=== PATIENT | female | born 1960 | race Caucasian/White ===

== ENCOUNTER 2022-11-06 20:26 | Emergency (ER) | payer SELFPAY ==
[2022-11-06 20:57] LABS: Urine Blood Trace-intact (Negative); Urine Glucose Negative (Negative); Urine Protein Negative (Negative); Urine Specific Gravity <=1.005 (1.005-1.030); Urine pH 6.5 (5.0-7.0)
--- OUTSIDE RECORDS SUMMARY | 2022-11-06 21:02 | XMS REPORT | Continuity of Care Document ---
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 00 every day release 24 with food hr trazodone 2023-0 No 2{table Q1D take 2 Acc essH 100 mg 1-12 t} tablet by ealth tablet 00:00: oral route 00 every day after meals Blood 2023-0 No check [facility] Pressure 1-12 blood ealth Kit 00:00: pressure 00 once a day gabapentin 2023-0 No 1{capsu TID take 1 Ac cessH 300 mg 1-12 le} capsule by ealth capsule 00:00: oral route 00 3 times every day as needed venlafaxine 2023-0 No 1{capsu Q1D take 1 A ccessH ER 75 mg 1-12 le} capsule by ealth capsule,ext 00:00: oral route ended 00 every day release 24 with food hr trazodone 2023-0 No 2{table Q1D take 2 Acc essH 100 mg 1-12 t} tablet by ealth tablet 00:00: oral route 00 every day after meals Blood 2023-0 No check [facility] Pressure 1-12 blood ealth Kit 00:00: pressure 00 once a day gabapentin 2023-0 No 1{capsu TID take 1 Ac cessH 300 mg 1-12 le} capsule by ealth capsule 00:00: oral route 00 3 times every day as needed venlafaxine 2023-0 No 1{capsu Q1D take 1 A ccessH ER 75 mg 1-12 le} capsule by ealth capsule,ext 00:00: oral route ended 00 every day release 24 with food hr trazodone 2023-0 No 2{table Q1D take 2 Acc essH 100 mg 1-12 t} tablet by ealth tablet 00:00: oral route 00 every day after meals Blood 2023-0 No check [facility] Pressure 1-12 blood ealth Kit 00:00: pressure 00 once a day gabapentin 2023-0 No 1{capsu TID take 1 Ac cessH 300 mg 1-12 le} capsule by ealth capsule 00:00: oral route 00 3 times every day as needed venlafaxine 2023-0 No 1{capsu Q1D take 1 A ccessH ER 75 mg 1-12 le} capsule by ealth capsule,ext 00:00: oral route ended 00 every day release 24 with food hr trazodone 2023-0 No 2{table Q1D take 2 Acc essH 100 mg 1-12 t} tablet by ealth tablet 00:00: oral route 00 every day after meals Blood 2023-0 No check [facility] Pressure 1-12 blood ealth Kit 00:00: pressure 00 once a day gabapentin 2023-0 No 1{capsu TID take 1 Ac cessH 300 mg 1-12 le} capsule by ealth capsule 00:00: oral route 00 3 times every day as needed venlafaxine 2023-0 No 1{capsu Q1D take 1 A ccessH ER 75 mg 1-12 le} capsule by ealth capsule,ext 00:00: oral route ended 00 every day release 24 with food hr trazodone 2023-0 No 2{table Q1D take 2 Acc essH 100 mg 1-12 t} tablet by ealth tablet 00:00: oral route 00 every day after meals Blood 2023-0 No check [facility] Pressure 1-12 blood ealth Kit 00:00: pressure 00 once a day gabapentin 2023-0 No 1{capsu TID take 1 Ac cessH 300 mg 1-12 le} capsule by ealth capsule 00:00: oral route 00 3 times every day as needed venlafaxine 2023-0 No 1{capsu Q1D take 1 A ccessH ER 75 mg 1-12 le} capsule by ealth capsule,ext 00:00: oral route ended 00 every day release 24 with food hr trazodone 2023-0 No 2{table Q1D take 2 Acc essH 100 mg 1-12 t} tablet by ealth tablet 00:00: oral route 00 every day after meals Blood 2023-0 No check [facility] Pressure 1-12 blood ealth Kit 00:00: pressure 00 once a day gabapentin 2023-0 No 1{capsu TID take 1 Ac cessH 300 mg 1-12 le} capsule by ealth capsule 00:00: oral route 00 3 times every day as needed venlafaxine 2023-0 No 1{capsu Q1D take 1 A ccessH ER 75 mg 1-12 le} capsule by ealth capsule,ext 00:00: oral route ended 00 every day release 24 with food hr trazodone 2023-0 No 2{table Q1D take 2 Acc essH 100 mg 1-12 t} tablet by ealth tablet 00:00: oral route 00 every day after meals Blood 2023-0 No check [facility] Pressure 1-12 blood ealth Kit 00:00: pressure 00 once a day gabapentin 2023-0 No 1{capsu TID take 1 Ac cessH 300 mg 1-12 le} capsule by ealth capsule 00:00: oral route 00 3 times every day as needed venlafaxine 2023-0 No 1{capsu Q1D take 1 A ccessH ER 75 mg 1-12 le} capsule by ealth capsule,ext 00:00: oral route ended 00 every day release 24 with food hr trazodone 2023-0 No 2{table Q1D take 2 Acc essH 100 mg 1-12 t} tablet by ealth tablet 00:00: oral route 00 every day after meals Blood 2023-0 No check [facility] Pressure 1-12 blood ealth Kit 00:00: pressure 00 once a day gabapentin 2023-0 No 1{capsu TID take 1 Ac cessH 300 mg 1-12 le} capsule by ealth capsule 00:00: oral route 00 3 times every day as needed venlafaxine 2023-0 No 1{capsu Q1D take 1 A ccessH ER 75 mg 1-12 le} capsule by ealth capsule,ext 00:00: oral route ended 00 every day release 24 with food hr trazodone 2023-0 No 2{table Q1D take 2 Acc essH 100 mg 1-12 t} tablet by ealth tablet 00:00: oral route 00 every day after meals Blood 2023-0 No check [facility] Pressure 1-12 blood ealth Kit 00:00: pressure 00 once a day gabapentin 2023-0 No 1{capsu TID take 1 Ac cessH 300 mg 1-12 le} capsule by ealth capsule 00:00: oral route 00 3 times every day as needed venlafaxine 2023-0 No 1{capsu Q1D take 1 A ccessH ER 75 mg 1-12 le} capsule by ealth capsule,ext 00:00: oral route ended 00 every day release 24 with food hr venlafaxine 2023-0 No 1{capsu Q1D take 1 A ccessH ER 75 mg 1-12 le} capsule by ealth capsule,ext 00:00: oral route ended 00 every day release 24 with food hr trazodone 2023-0 No 2{table Q1D take 2 Acc essH 100 mg 1-12 t} tablet by ealth tablet 00:00: oral route 00 every day after meals trazodone 2023-0 No 2{table Q1D take 2 Acc ess[facility] 100 mg 1-12 t} tablet by ealth tablet 00:00: oral route 00 every day after meals Blood 3-0 No check [facility] Pressure 1-12 blood ealth Kit 00:00: pressure 00 once a day gabapentin 2023-0 No 1{capsu TID take 1 Ac cessH 300 mg 1-12 le} capsule by ealth capsule 00:00: oral route 00 3 times every day as needed Blood 2023-0 No check [facility] Pressure 1-12 blood ealth Kit 00:00: pressure 00 once a day gabapentin 2023-0 No 1{capsu TID take 1 Ac cessH 300 mg 1-12 le} capsule by ealth capsule 00:00: oral route 00 3 times every day as needed venlafaxine 2023-0 No 1{capsu Q1D take 1 A ccessH ER 75 mg 1-12 le} capsule by ealth capsule,ext 00:00: oral route ended 00 every day release 24 with food hr trazodone 2023-0 No 2{table Q1D take 2 Acc essH 100 mg 1-12 t} tablet by ealth tablet 00:00: oral route 00 every day after meals Blood 2023-0 No check [facility] Pressure 1-12 blood ealth Kit 00:00: pressure 00 once a day gabapentin 2023-0 No 1{capsu TID take 1 Ac cessH 300 mg 1-12 le} capsule by ealth capsule 00:00: oral route 00 3 times every day as needed venlafaxine 2023-0 No 1{capsu Q1D take 1 A ccessH ER 75 mg 1-12 le} capsule by ealth capsule,ext 00:00: oral route ended 00 every day release 24 with food hr trazodone 2023-0 No 2{table Q1D take 2 Acc essH 100 mg 1-12 t} tablet by ealth tablet 00:00: oral route 00 every day after meals Blood 2023-0 No check [facility] Pressure 1-12 blood ealth Kit 00:00: pressure 00 once a day gabapentin 2023-0 No 1{capsu TID take 1 Ac cessH 300 mg 1-12 le} capsule by ealth capsule 00:00: oral route 00 3 times every day as needed venlafaxine 2023-0 No 1{capsu Q1D take 1 A ccessH ER 75 mg 1-12 le} capsule by ealth capsule,ext 00:00: oral route ended 00 every day release 24 with food hr trazodone No 2{table Q1D take 2 Acc essH 100 mg 1-12 t} tablet by ealth tablet 00:00: oral route 00 every day after meals Blood 2022-0 No check [facility] Pressure 1-12 blood ealth Kit 00:00: pressure 00 once a day gabapentin No 1{capsu TID take 1 Ac cessH 300 mg 1-12 le} capsule by ealth capsule 00:00: oral route 00 3 times every day as needed gabapentin 2021-08 Yes Closed 300mg Take 1 [facility] (NEURONTIN) 2-29 bimalleolar capsule by [facility] 300 mg 00:00: fracture mouth 3 capsule 00 with times routine daily healing, unspecified laterality, subsequent encounter gabapentin 2021-08 Yes Closed 300mg Take 1 [facility] (NEURONTIN) 2-29 bimalleolar capsule by [facility] 300 mg 00:00: fracture mouth 3 capsule 00 with times routine daily healing, unspecified laterality, subsequent encounter gabapentin 2021-08 Yes Closed 300mg Take 1 [facility] (NEURONTIN) 2-29 bimalleolar capsule by [facility] 300 mg 00:00: fracture mouth 3 capsule 00 with times routine daily healing, unspecified laterality, subsequent encounter gabapentin 2021-08 Yes Closed 300mg Take 1 [facility] (NEURONTIN) 2-29 bimalleolar capsule by Health 300 mg 00:00: fracture mouth 3 capsule 00 with times routine daily healing, unspecified laterality, subsequent encounter gabapentin 2021-08 Yes Closed 300mg Take 1 [facility] (NEURONTIN) 2-29 bimalleolar capsule by [facility] 300 mg 00:00: fracture mouth 3 capsule 00 with times routine daily healing, unspecified laterality, subsequent encounter gabapentin 2021-08 Yes Closed 300mg Take 1 [facility] (NEURONTIN) 2-29 bimalleolar capsule by [facility] 300 mg 00:00: fracture mouth 3 capsule 00 with times routine daily healing, unspecified laterality, subsequent encounter gabapentin 2021-08 Yes Closed 300mg Take 1 [facility] (NEURONTIN) 2-29 bimalleolar capsule by Health 300 mg 00:00: fracture mouth 3 capsule 00 with times routine daily healing, unspecified laterality, subsequent encounter gabapentin 2021-08 Yes Closed 300mg Take 1 [facility] (NEURONTIN) 2-29 bimalleolar capsule by [facility] 300 mg 00:00: fracture mouth 3 capsule 00 with times routine daily healing, unspecified laterality, subsequent encounter gabapentin 2021-08 Yes Closed 300mg Take 1 [facility] (NEURONTIN) 2-29 bimalleolar capsule by [facility] 300 mg 00:00: fracture mouth 3 capsule 00 with times routine daily healing, unspecified laterality, subsequent encounter gabapentin 2021-08 Yes Closed 300mg Take 1 [facility] (NEURONTIN) 2-29 bimalleolar capsule by [facility] 300 mg 00:00: fracture mouth 3 capsule 00 with times routine daily healing, unspecified laterality, subsequent encounter gabapentin 2021-08 Yes Closed 300mg Take 1 [facility] (NEURONTIN) 2-29 bimalleolar capsule by [facility] 300 mg 00:00: fracture mouth 3 capsule 00 with times routine daily healing, unspecified laterality, subsequent encounter gabapentin 2021-08 Yes Closed 300mg Take 1 [facility] (NEURONTIN) 2-29 bimalleolar capsule by [facility] 300 mg 00:00: fracture mouth 3 capsule 00 with times routine daily healing, unspecified laterality, subsequent encounter gabapentin 2021-08 Yes Closed 300mg Take 1 [facility] (NEURONTIN) 2-29 bimalleolar capsule by [facility] 300 mg 00:00: fracture mouth 3 capsule 00 with times routine daily healing, unspecified laterality, subsequent encounter gabapentin 2021-08 Yes Closed 300mg Take 1 [facility] (NEURONTIN) 2-29 bimalleolar capsule by [facility] 300 mg 00:00: fracture mouth 3 capsule 00 with times routine daily healing, unspecified laterality, subsequent encounter gabapentin 2021-08 Yes Closed 300mg Take 1 [facility] (NEURONTIN) 2-29 bimalleolar capsule by [facility] 300 mg 00:00: fracture mouth 3 capsule 00 with times routine daily healing, unspecified laterality, subsequent encounter gabapentin 2021-08 Yes Closed 300mg Take 1 [facility] (NEURONTIN) 2-29 bimalleolar capsule by [facility] 300 mg 00:00: fracture mouth 3 capsule 00 with times routine daily healing, unspecified laterality, subsequent encounter gabapentin 2021-08 Yes Closed 300mg Take 1 [facility] (NEURONTIN) 2-29 bimalleolar capsule by [facility] 300 mg 00:00: fracture mouth 3 capsule 00 with times routine daily healing, unspecified laterality, subsequent encounter gabapentin 2021-08 Yes Closed 300mg Take 1 [facility] (NEURONTIN) 2-29 bimalleolar capsule by [facility] 300 mg 00:00: fracture mouth 3 capsule 00 with times routine daily healing, unspecified laterality, subsequent encounter HYDROcodone 2021-08 Yes Closed 1{tbl} Take 1 [facility] -acetaminop 2-08 bimalleolar tablet by [facility] (Nurigene) 00:00: fracture mouth 5-325 mg 00 with every 6 tablet routine hours as healing, needed for unspecified Pain laterality, subsequent encounter ibuprofen 2021-08 Yes Closed 800mg Take 1 [facility] (MOTRIN) 2-08 bimalleolar tablet by [facility] 800 mg 00:00: fracture mouth tablet 00 with every 8 routine hours as healing, needed for unspecified Pain laterality, subsequent encounter HYDROcodone 2021-08 Yes Closed 1{tbl} Take 1 [facility] -acetaminop 2-08 bimalleolar tablet by [facility] hen [employer]) 00:00: fracture mouth 5-325 mg 00 with every 6 tablet routine hours as healing, needed for unspecified Pain laterality, subsequent encounter ibuprofen 2021-08 Yes Closed 800mg Take 1 [facility] (MOTRIN) 2-08 bimalleolar tablet by [facility] 800 mg 00:00: fracture mouth tablet 00 with every 8 routine hours as healing, needed for unspecified Pain laterality, subsequent encounter HYDROcodone 2021-08 Yes Closed 1{tbl} Take 1 [facility] -acetaminop 2-08 bimalleolar tablet by [facility] hen (Nurigene) 00:00: fracture mouth 5-325 mg 00 with every 6 tablet routine hours as healing, needed for unspecified Pain laterality, subsequent encounter ibuprofen 2021-08 Yes Closed 800mg Take 1 [facility] (MOTRIN) 2-08 bimalleolar tablet by [facility] 800 mg 00:00: fracture mouth tablet 00 with every 8 routine hours as healing, needed for unspecified Pain laterality, subsequent encounter HYDROcodone 2021-08 Yes Closed 1{tbl} Take 1 [facility] -acetaminop 2-08 bimalleolar tablet by [facility] hen (Nurigene) 00:00: fracture mouth 5-325 mg 00 with every 6 tablet routine hours as healing, needed for unspecified Pain laterality, subsequent encounter ibuprofen 2021-08 Yes Closed 800mg Take 1 [facility] (MOTRIN) 2-08 bimalleolar tablet by [facility] 800 mg 00:00: fracture mouth tablet 00 with every 8 routine hours as healing, needed for unspecified Pain laterality, subsequent encounter HYDROcodone 2021-08 Yes Closed 1{tbl} Take 1 [facility] -acetaminop 2-08 bimalleolar tablet by [facility] 00:[facility]: fracture mouth 5-325 mg 00 with every 6 tablet routine hours as healing, needed for unspecified Pain laterality, subsequent encounter ibuprofen 2021-08 Yes Closed 800mg Take 1 [facility] (MOTRIN) 2-08 bimalleolar tablet by [facility] 800 mg 00:00: fracture mouth tablet 00 with every 8 routine hours as healing, needed for unspecified Pain laterality, subsequent encounter HYDROcodone 2021-08 Yes Closed 1{tbl} Take 1 [facility] -acetaminop 2-08 bimalleolar tablet by [facility]) 00:00: fracture mouth 5-325 mg 00 with every 6 tablet routine hours as healing, needed for unspecified Pain laterality, subsequent encounter ibuprofen 2021-08 Yes Closed 800mg Take 1 [facility] (MOTRIN) 2-08 bimalleolar tablet by [facility] 800 mg 00:00: fracture mouth tablet 00 with every 8 routine hours as healing, needed for unspecified Pain laterality, subsequent encounter HYDROcodone 2021-08 Yes Closed 1{tbl} Take 1 [facility] -acetaminop 2-08 [facility]leolar tablet [facility] 00:00: fracture mouth 5-325 mg 00 with every 6 tablet routine hours as healing, needed for unspecified Pain laterality, subsequent encounter ibuprofen 2021-08 Yes Closed 800mg Take 1 [facility] (MOTRIN) 2-08 bimalleolar tablet by [facility] 800 mg 00:00: fracture mouth tablet 00 with every 8 routine hours as healing, needed for unspecified Pain laterality, subsequent encounter HYDROcodone 2021-08 Yes Closed 1{tbl} Take 1 [facility] -acetaminop 2-08 [facility]imalleolar tablet [facility] 00:00: fracture mouth 5-325 mg 00 with every 6 tablet routine hours as healing, needed for unspecified Pain laterality, subsequent encounter ibuprofen 2021-08 Yes Closed 800mg Take 1 [facility] (MOTRIN) 2-08 bimalleolar tablet by [facility] 800 mg 00:00: fracture mouth tablet 00 with every 8 routine hours as healing, needed for unspecified Pain laterality, subsequent encounter HYDROcodone 2022-1 Yes Closed 1{tbl} Take 1 [facility] -acetaminop 2-08 [facility]imalleolar tablet [facility] 00:00: fracture mouth 5-325 mg 00 with every 6 tablet routine hours as healing, needed for unspecified Pain laterality, subsequent encounter ibuprofen 2021-08 Yes Closed 800mg Take 1 [facility] (MOTRIN) 2-08 bimalleolar tablet by [facility] 800 mg 00:00: fracture mouth tablet 00 with every 8 routine hours as healing, needed for unspecified Pain laterality, subsequent encounter HYDROcodone 2021-08 Yes Closed 1{tbl} Take 1 [facility] -acetaminop 2-08 bimalleolar tablet by [facility]) 00:00: fracture mouth 5-325 mg 00 with every 6 tablet routine hours as healing, needed for unspecified Pain laterality, subsequent encounter ibuprofen 2021-08 Yes Closed 800mg Take 1 [facility] (MOTRIN) 2-08 bimalleolar tablet by [facility] 800 mg 00:00: fracture mouth tablet 00 with every 8 routine hours as healing, needed for unspecified Pain laterality, subsequent encounter HYDROcodone 2021-08 Yes Closed 1{tbl} Take 1 [facility] -acetaminop 2-08 [facility]imalleolar tablet [facility] 00:00: fracture mouth 5-325 mg 00 with every 6 tablet routine hours as healing, needed for unspecified Pain laterality, subsequent encounter ibuprofen 2021-08 Yes Closed 800mg Take 1 [facility] (MOTRIN) 2-08 bimalleolar tablet by [facility] 800 mg 00:00: fracture mouth tablet 00 with every 8 routine hours as healing, needed for unspecified Pain laterality, subsequent encounter HYDROcodone 2021-08 Yes Closed 1{tbl} Take 1 [facility] -acetaminop 2-08 bimalleolar tablet by [facility]) 00:00: fracture mouth 5-325 mg 00 with every 6 tablet routine hours as healing, needed for unspecified Pain laterality, subsequent encounter ibuprofen 2021-08 Yes Closed 800mg Take 1 [facility] (MOTRIN) 2-08 bimalleolar tablet by [facility] 800 mg 00:00: fracture mouth tablet 00 with every 8 routine hours as healing, needed for unspecified Pain laterality, subsequent encounter HYDROcodone 2021-08 Yes Closed 1{tbl} Take 1 [facility] -acetaminop 2-08 [facility]imalleolar tablet [facility]) 00:00: fracture mouth 5-325 mg 00 with every 6 tablet routine hours as healing, needed for unspecified Pain laterality, subsequent encounter ibuprofen 2021-08 Yes Closed 800mg Take 1 [facility] (MOTRIN) 2-08 bimalleolar tablet by [facility] 800 mg 00:00: fracture mouth tablet 00 with every 8 routine hours as healing, needed for unspecified Pain laterality, subsequent encounter HYDROcodone 2021-08 Yes Closed 1{tbl} Take 1 [facility] -acetaminop 2-08 bimalleolar tablet by [facility] 00:00: fracture mouth 5-325 mg 00 with every 6 tablet routine hours as healing, needed for unspecified Pain laterality, subsequent encounter ibuprofen 2021-08 Yes Closed 800mg Take 1 [facility] (MOTRIN) 2-08 bimalleolar tablet by [facility] 800 mg 00:00: fracture mouth tablet 00 with every 8 routine hours as healing, needed for unspecified Pain laterality, subsequent encounter HYDROcodone 2021-08 Yes Closed 1{tbl} Take 1 [facility] -acetaminop 2-08 [facility]imalleolar tablet by [facility]) 00:00: fracture mouth 5-325 mg 00 with every 6 tablet routine hours as healing, needed for unspecified Pain laterality, subsequent encounter ibuprofen 2021-08 Yes Closed 800mg Take 1 [facility] (MOTRIN) 2-08 bimalleolar tablet by [facility] 800 mg 00:00: fracture mouth tablet 00 with every 8 routine hours as healing, needed for unspecified Pain laterality, subsequent encounter HYDROcodone 2021-08 Yes Closed 1{tbl} Take 1 [facility] -acetaminop 2-08 bimalleolar tablet by [facility] hen [employer]) 00:00: fracture mouth 5-325 mg 00 with every 6 tablet routine hours as healing, needed for unspecified Pain laterality, subsequent encounter ibuprofen 2021-08 Yes Closed 800mg Take 1 [facility] (MOTRIN) 2-08 bimalleolar tablet by [facility] 800 mg 00:00: fracture mouth tablet 00 with every 8 routine hours as healing, needed for unspecified Pain laterality, subsequent encounter HYDROcodone 2021-08 Yes Closed 1{tbl} Take 1 [facility] -acetaminop 2-08 bimalleolar tablet by [facility] [employer]) 00:00: fracture mouth 5-325 mg 00 with every 6 tablet routine hours as healing, needed for unspecified Pain laterality, subsequent encounter ibuprofen 2021-08 Yes Closed 800mg Take 1 [facility] (MOTRIN) 2-08 bimalleolar tablet by [facility] 800 mg 00:00: fracture mouth tablet 00 with every 8 routine hours as healing, needed for unspecified Pain laterality, subsequent encounter HYDROcodone 2021-08 Yes Closed 1{tbl} Take 1 [facility] -acetaminop 2-08 bimalleolar tablet by [facility] hen ([facility]) 00:00: fracture mouth 5-325 mg 00 with every 6 tablet routine hours as healing, needed for unspecified Pain laterality, subsequent encounter ibuprofen 2021-08 Yes Closed 800mg Take 1 [facility] (MOTRIN) 2-08 bimalleolar tablet by [facility] 800 mg 00:00: fracture mouth tablet 00 with every 8 routine hours as healing, needed for unspecified Pain laterality, subsequent encounter traMADoL 2021-08 Yes Closed 50mg Take 1 [facility] (ULTRAM) 50 1-21 bimalleolar tablet by [facility] mg tablet 00:00: fracture mouth 00 with every 6 routine hours as healing, needed for unspecified Pain laterality, subsequent encounter traMADoL 2021-08 Yes Closed 50mg Take 1 [facility] (ULTRAM) 50 1-21 bimalleolar tablet by [facility] mg tablet 00:00: fracture mouth 00 with every 6 routine hours as healing, needed for unspecified Pain laterality, subsequent encounter traMADoL 2021-08 Yes Closed 50mg Take 1 [facility] (ULTRAM) 50 1-21 bimalleolar tablet by [facility] mg tablet 00:00: fracture mouth 00 with every 6 routine hours as healing, needed for unspecified Pain laterality, subsequent encounter traMADoL 2021-08 Yes Closed 50mg Take 1 [facility] (ULTRAM) 50 1-21 bimalleolar tablet by [facility] mg tablet 00:00: fracture mouth 00 with every 6 routine hours as healing, needed for unspecified Pain laterality, subsequent encounter traMADoL 2021-08 Yes Closed 50mg Take 1 [facility] (ULTRAM) 50 1-21 bimalleolar tablet by [facility] mg tablet 00:00: fracture mouth 00 with every 6 routine hours as healing, needed for unspecified Pain laterality, subsequent encounter traMADoL 2021-08 Yes Closed 50mg Take 1 [facility] (ULTRAM) 50 1-21 bimalleolar tablet by [facility] mg tablet 00:00: fracture mouth 00 with every 6 routine hours as healing, needed for unspecified Pain laterality, subsequent encounter traMADoL 2021-08 Yes Closed 50mg Take 1 [facility] (ULTRAM) 50 1-21 bimalleolar tablet by [facility] mg tablet 00:00: fracture mouth 00 with every 6 routine hours as healing, needed for unspecified Pain laterality, subsequent encounter traMADoL 2021-08 Yes Closed 50mg Take 1 [facility] (ULTRAM) 50 1-21 bimalleolar tablet by [facility] mg tablet 00:00: fracture mouth 00 with every 6 routine hours as healing, needed for unspecified Pain laterality, subsequent encounter traMADoL 2021-08 Yes Closed 50mg Take 1 [facility] (ULTRAM) 50 1-21 bimalleolar tablet by [facility] mg tablet 00:00: fracture mouth 00 with every 6 routine hours as healing, needed for unspecified Pain laterality, subsequent encounter traMADoL 2021-08 Yes Closed 50mg Take 1 [facility] (ULTRAM) 50 1-21 bimalleolar tablet by [facility] mg tablet 00:00: fracture mouth 00 with every 6 routine hours as healing, needed for unspecified Pain laterality, subsequent encounter traMADoL 2021-08 Yes Closed 50mg Take 1 [facility] (ULTRAM) 50 1-21 bimalleolar tablet by [facility] mg tablet 00:00: fracture mouth 00 with every 6 routine hours as healing, needed for unspecified Pain laterality, subsequent encounter traMADoL 2021-08 Yes Closed 50mg Take 1 [facility] (ULTRAM) 50 1-21 bimalleolar tablet by [facility] mg tablet 00:00: fracture mouth 00 with every 6 routine hours as healing, needed for unspecified Pain laterality, subsequent encounter traMADoL 2021-08 Yes Closed 50mg Take 1 [facility] (ULTRAM) 50 1-21 bimalleolar tablet by [facility] mg tablet 00:00: fracture mouth 00 with every 6 routine hours as healing, needed for unspecified Pain laterality, subsequent encounter traMADoL 2021-08 Yes Closed 50mg Take 1 [facility] (ULTRAM) 50 1-21 bimalleolar tablet by [facility] mg tablet 00:00: fracture mouth 00 with every 6 routine hours as healing, needed for unspecified Pain laterality, subsequent encounter traMADoL 2021-08 Yes Closed 50mg Take 1 [facility] (ULTRAM) 50 1-21 bimalleolar tablet by [facility] mg tablet 00:00: fracture mouth 00 with every 6 routine hours as healing, needed for unspecified Pain laterality, subsequent encounter traMADoL 2021-08 Yes Closed 50mg Take 1 [facility] (ULTRAM) 50 1-21 [facility] tablet [facility] tablet 00:00: fracture mouth 00 with every 6 routine hours as healing, needed for unspecified Pain laterality, subsequent encounter traMADoL 2021-08 Yes Closed 50mg Take 1 [facility] (ULTRAM) 50 1-21 [facility] tablet [facility] tablet 00:00: fracture mouth 00 with every 6 routine hours as healing, needed for unspecified Pain laterality, subsequent encounter traMADoL 2021-08 Yes Closed 50mg Take 1 [facility] (ULTRAM) 50 1-21 [facility] tablet [facility] tablet 00:00: fracture mouth 00 with every 6 routine hours as healing, needed for unspecified Pain laterality, subsequent encounter gabapentin 2021-08- No Closed 300mg Take 1 [facility] (NEURONTIN) 09-11 [facility] capsule [facility] 300 mg 00:00: 23:59 fracture of mouth 3 capsule 00 :00 left ankle, times initial daily for encounter 30 days gabapentin 2021-08- No Closed 300mg Take 1 [facility] (NEURONTIN) 09-11 [facility] capsule [facility] 300 mg 00:00: 23:59 fracture of mouth 3 capsule 00 :00 left ankle, times initial daily for encounter 30 days gabapentin 2021-08- No Closed 300mg Take 1 [facility] (NEURONTIN) 09-11 [facility] capsule [facility] 300 mg 00:00: 23:59 fracture of mouth 3 capsule 00 :00 left ankle, times initial daily for encounter 30 days gabapentin 2021-08- No Closed 300mg Take 1 [facility] (NEURONTIN) 09-11 [facility] capsule [facility] 300 mg 00:00: 23:59 fracture of mouth 3 capsule 00 :00 left ankle, times initial daily for encounter 30 days gabapentin 2021-08- No Closed 300mg Take 1 [facility] (NEURONTIN) 09-11 [facility] capsule [facility] 300 mg 00:00: 23:59 fracture of mouth 3 capsule 00 :00 left ankle, times initial daily for encounter 30 days gabapentin 2021-08- No Closed 300mg Take 1 [facility] (NEURONTIN) 1-21 12-21 [facility] capsule [facility] 300 mg 00:00: 23:59 fracture of mouth 3 capsule 00 :00 left ankle, times initial daily for encounter 30 days gabapentin 2021-08- No Closed 300mg Take 1 [facility] (NEURONTIN) 09-11 [facility] capsule [facility] 300 mg 00:00: 23:59 fracture of mouth 3 capsule 00 :00 left ankle, times initial daily for encounter 30 days gabapentin 2021-08- No Closed 300mg Take 1 [facility]is (NEURONTIN) 09-11 bimalleolar capsule by [facility] 300 mg 00:00: 23:59 fracture of mouth 3 capsule 00 :00 left ankle, times initial daily for encounter 30 days gabapentin 2021-08- No Closed 300mg Take 1 [facility] (NEURONTIN) 09-11 bimalleolar capsule by [facility] 300 mg 00:00: 23:59 fracture of mouth 3 capsule 00 :00 left ankle, times initial daily for encounter 30 days gabapentin 2021-08- No Closed 300mg Take 1 [facility]is (NEURONTIN) 09-11 bimalleolar capsule by [facility] 300 mg 00:00: 23:59 fracture of mouth 3 capsule 00 :00 left ankle, times initial daily for encounter 30 days gabapentin 2021-08- No Closed 300mg Take 1 [facility]is (NEURONTIN) 09-11 bimalleolar capsule by [facility] 300 mg 00:00: 23:59 fracture of mouth 3 capsule 00 :00 left ankle, times initial daily for encounter 30 days gabapentin 2021-08- No Closed 300mg Take 1 [facility] (NEURONTIN) 09-11 bimalleolar capsule by [facility] 300 mg 00:00: 23:59 fracture of mouth 3 capsule 00 :00 left ankle, times initial daily for encounter 30 days gabapentin 2021-08- No Closed 300mg Take 1 [facility] (NEURONTIN) 09-11 bimalleolar capsule by [facility] 300 mg 00:00: 23:59 fracture of mouth 3 capsule 00 :00 left ankle, times initial daily for encounter 30 days gabapentin 2021-08- No Closed 300mg Take 1 [facility] (NEURONTIN) 09-11 [facility] capsule [facility] 300 mg 00:00: 23:59 fracture of mouth 3 capsule 00 :00 left ankle, times initial daily for encounter 30 days gabapentin 2021-08- No Closed 300mg Take 1 [facility] (NEURONTIN) 09-11 [facility] capsule [facility] 300 mg 00:00: 23:59 fracture of mouth 3 capsule 00 :00 left ankle, times initial daily for encounter 30 days gabapentin 2021-08- No Closed 300mg Take 1 [facility] (NEURONTIN) 09-11 [facility]olar capsule [facility] 300 mg 00:00: 23:59 fracture of mouth 3 capsule 00 :00 left ankle, times initial daily for encounter 30 days gabapentin 2021-08- No Closed 300mg Take 1 [facility] (NEURONTIN) 09-11 [facility]olar capsule [facility] 300 mg 00:00: 23:59 fracture of mouth 3 capsule 00 :00 left ankle, times initial daily for encounter 30 days gabapentin 2021-08- No Closed 300mg Take 1 [facility] (NEURONTIN) 09-11 [facility] capsule [facility] 300 mg 00:00: 23:59 fracture of mouth 3 capsule 00 :00 left ankle, times initial daily for encounter 30 days traMADoL 2021-08- No Closed 50mg Take 1 [facility] (ULTRAM) 50 08-31 [facility] tablet [facility] tablet 00:00: 00:00 fracture mouth 00 :00 with every 6 routine hours as healing, needed for unspecified Pain laterality, subsequent encounter traMADoL 2021-08- No Closed 50mg Take 1 [facility] (ULTRAM) 50 08-31 [facility] tablet [facility] tablet 00:00: 00:00 fracture mouth 00 :00 with every 6 routine hours as healing, needed for unspecified Pain laterality, subsequent encounter traMADoL 2021-08- No Closed 50mg Take 1 [facility] (ULTRAM) 50 08-31 [facility] tablet [facility] tablet 00:00: 00:00 fracture mouth 00 :00 with every 6 routine hours as healing, needed for unspecified Pain laterality, subsequent encounter traMADoL 2021-08- No Closed 50mg Take 1 [facility] (ULTRAM) 50 08-31 [facility] tablet [facility] tablet 00:00: 00:00 fracture mouth 00 :00 with every 6 routine hours as healing, needed for unspecified Pain laterality, subsequent encounter traMADoL 2021-08- No Closed 50mg Take 1 [facility] (ULTRAM) 50 08-31 [facility] tablet [facility] tablet 00:00: 00:00 fracture mouth 00 :00 with every 6 routine hours as healing, needed for unspecified Pain laterality, subsequent encounter traMADoL 2021-08- No Closed 50mg Take 1 [facility] (ULTRAM) 50 08-31 [facility] tablet [facility] tablet 00:00: 00:00 fracture mouth 00 :00 with every 6 routine hours as healing, needed for unspecified Pain laterality, subsequent encounter traMADoL 2021-08- No Closed 50mg Take 1 [facility] (ULTRAM) 50 08-31 [facility] tablet [facility] tablet 00:00: 00:00 fracture mouth 00 :00 with every 6 routine hours as healing, needed for unspecified Pain laterality, subsequent encounter traMADoL 2021-08- No Closed 50mg Take 1 [facility] (ULTRAM) 50 08-31 [facility] tablet [facility] tablet 00:00: 00:00 fracture mouth 00 :00 with every 6 routine hours as healing, needed for unspecified Pain laterality, subsequent encounter traMADoL 2021-08- No Closed 50mg Take 1 [facility] (ULTRAM) 50 08-31 [facility] tablet [facility] tablet 00:00: 00:00 fracture mouth 00 :00 with every 6 routine hours as healing, needed for unspecified Pain laterality, subsequent encounter traMADoL 2021-08- No Closed 50mg Take 1 [facility] (ULTRAM) 50 08-31 [facility] tablet [facility] tablet 00:00: 00:00 fracture mouth 00 :00 with every 6 routine hours as healing, needed for unspecified Pain laterality, subsequent encounter traMADoL 2021-08- No Closed 50mg Take 1 [facility] (ULTRAM) 50 08-31- [facility]imalleolar tablet [facility] tablet 00:00: 00:00 fracture mouth 00 :00 with every 6 routine hours as healing, needed for unspecified Pain laterality, subsequent encounter traMADoL 2021-08- No Closed 50mg Take 1 [facility] (ULTRAM) 50 08-31 [facility] tablet [facility] tablet 00:00: 00:00 fracture mouth 00 :00 with every 6 routine hours as healing, needed for unspecified Pain laterality, subsequent encounter traMADoL 2021-08- No Closed 50mg Take 1 [facility] (ULTRAM) 50 08-31 [facility] tablet [facility] tablet 00:00: 00:00 fracture mouth 00 :00 with every 6 routine hours as healing, needed for unspecified Pain laterality, subsequent encounter traMADoL 2021-08- No Closed 50mg Take 1 [facility] (ULTRAM) 50 08-31 [facility]imalleolar tablet [facility] tablet 00:00: 00:00 fracture mouth 00 :00 with every 6 routine hours as healing, needed for unspecified Pain laterality, subsequent encounter traMADoL 2021-08- No Closed 50mg Take 1 [facility] (ULTRAM) 50 08-31 [facility] tablet [facility] tablet 00:00: 00:00 fracture mouth 00 :00 with every 6 routine hours as healing, needed for unspecified Pain laterality, subsequent encounter traMADoL 2021-08- No Closed 50mg Take 1 [facility] (ULTRAM) 50 08-31 [facility] tablet [facility] tablet 00:00: 00:00 fracture mouth 00 :00 with every 6 routine hours as healing, needed for unspecified Pain laterality, subsequent encounter traMADoL 2021-08- No Closed 50mg Take 1 [facility] (ULTRAM) 50 08-31 [facility] tablet [facility] tablet 00:00: 00:00 fracture mouth 00 :00 with every 6 routine hours as healing, needed for unspecified Pain laterality, subsequent encounter traMADoL 2021-08- No Closed 50mg Take 1 [facility] (ULTRAM) 50 08-31 [facility] tablet [facility] tablet 00:00: 00:00 fracture mouth 00 :00 with every 6 routine hours as healing, needed for unspecified Pain laterality, subsequent encounter traMADoL 2021-08- No Closed 50mg Take 1 [facility] (ULTRAM) 50 08-24 [facility] tablet [facility] tablet 00:00: 00:00 fracture mouth 00 :00 with every 6 routine hours as healing, needed for unspecified Pain laterality, subsequent encounter traMADoL 2021-08- No Closed 50mg Take 1 [facility] (ULTRAM) 50 08-24 11-10 [facility] tablet [facility] tablet 00:00: 00:00 fracture mouth 00 :00 with every 6 routine hours as healing, needed for unspecified Pain laterality, subsequent encounter traMADoL 2021-08- No Closed 50mg Take 1 [facility] (ULTRAM) 50 08-24 11-10 [facility] tablet [facility] tablet 00:00: 00:00 fracture mouth 00 :00 with every 6 routine hours as healing, needed for unspecified Pain laterality, subsequent encounter traMADoL 2021-08- No Closed 50mg Take 1 [facility] (ULTRAM) 50 08-24 11-10 [facility] tablet [facility] tablet 00:00: 00:00 fracture mouth 00 :00 with every 6 routine hours as healing, needed for unspecified Pain laterality, subsequent encounter traMADoL 2021-08- No Closed 50mg Take 1 [facility] (ULTRAM) 50 08-24 11-10 [facility] tablet [facility] tablet 00:00: 00:00 fracture mouth 00 :00 with every 6 routine hours as healing, needed for unspecified Pain laterality, subsequent encounter traMADoL 2021-08- No Closed 50mg Take 1 [facility] (ULTRAM) 50 08-24 11-10 [facility] tablet [facility] tablet 00:00: 00:00 fracture mouth 00 :00 with every 6 routine hours as healing, needed for unspecified Pain laterality, subsequent encounter traMADoL 2021-08- No Closed 50mg Take 1 [facility] (ULTRAM) 50 08-24 11-10 [facility] tablet [facility] tablet 00:00: 00:00 fracture mouth 00 :00 with every 6 routine hours as healing, needed for unspecified Pain laterality, subsequent encounter traMADoL 2021-08- No Closed 50mg Take 1 [facility] (ULTRAM) 50 08-24 11-10 [facility]imalleolar tablet [facility] tablet 00:00: 00:00 fracture mouth 00 :00 with every 6 routine hours as healing, needed for unspecified Pain laterality, subsequent encounter traMADoL 2021-08- No Closed 50mg Take 1 [facility] (ULTRAM) 50 08-24 11-10 [facility]imalleolar tablet [facility] tablet 00:00: 00:00 fracture mouth 00 :00 with every 6 routine hours as healing, needed for unspecified Pain laterality, subsequent encounter traMADoL 2021-08- No Closed 50mg Take 1 [facility] (ULTRAM) 50 08-24 11-10 [facility] tablet [facility] tablet 00:00: 00:00 fracture mouth 00 :00 with every 6 routine hours as healing, needed for unspecified Pain laterality, subsequent encounter traMADoL 2021-08- No Closed 50mg Take 1 [facility] (ULTRAM) 50 08-24 11-10 [facility]imal[facility]olar tablet [facility] tablet 00:00: 00:00 fracture mouth 00 :00 with every 6 routine hours as healing, needed for unspecified Pain laterality, subsequent encounter traMADoL 2021-08- No Closed 50mg Take 1 [facility] (ULTRAM) 50 08-24 11-10 [facility]imalleolar tablet [facility] mg tablet 00:00: 00:00 fracture mouth 00 :00 with every 6 routine hours as healing, needed for unspecified Pain laterality, subsequent encounter traMADoL 2021-08- No Closed 50mg Take 1 [facility] (ULTRAM) 50 08-24 11-10 [facility]imal[facility]olar tablet [facility] mg tablet 00:00: 00:00 fracture mouth 00 :00 with every 6 routine hours as healing, needed for unspecified Pain laterality, subsequent encounter traMADoL 2021-08- No Closed 50mg Take 1 [facility] (ULTRAM) 50 08-24 11-10 [facility]imal[facility]olar tablet [facility] tablet 00:00: 00:00 fracture mouth 00 :00 with every 6 routine hours as healing, needed for unspecified Pain laterality, subsequent encounter traMADoL 2021-08- No Closed 50mg Take 1 [facility] (ULTRAM) 50 08-24 11-10 [facility]imalleolar tablet by [facility] mg tablet 00:00: 00:00 fracture mouth 00 :00 with every 6 routine hours as healing, needed for unspecified Pain laterality, subsequent encounter traMADoL 2021-08- No Closed 50mg Take 1 [facility] (ULTRAM) 50 08-24 11-10 [facility]imalleolar tablet [facility] mg tablet 00:00: 00:00 fracture mouth 00 :00 with every 6 routine hours as healing, needed for unspecified Pain laterality, subsequent encounter traMADoL 2021-08- No Closed 50mg Take 1 [facility] (ULTRAM) 50 08-24 11-10 [facility]imalleolar tablet [facility] mg tablet 00:00: 00:00 fracture mouth 00 :00 with every 6 routine hours as healing, needed for unspecified Pain laterality, subsequent encounter traMADoL 2021-08- No Closed 50mg Take 1 [facility] (ULTRAM) 50 08-24-10 [facility]imal[facility]olar tablet [facility] tablet 00:00: 00:00 fracture mouth 00 :00 with every 6 routine hours as healing, needed for unspecified Pain laterality, subsequent encounter gabapentin 2021-08- No Closed 300mg Take 1 H arris (NEURONTIN) 0-18 07-21 [facility] capsule [facility] 300 mg 00:00: 00:00 fracture of mouth 3 capsule 00 :00 left ankle, times initial daily for encounter 30 days gabapentin 2021-08- No Closed 300mg Take 1 H arris (NEURONTIN) 0-18 07-21 [facility] capsule [facility] 300 mg 00:00: 00:00 fracture of mouth 3 capsule 00 :00 left ankle, times initial daily for encounter 30 days gabapentin 2021-08- No Closed 300mg Take 1 H arris (NEURONTIN) 0-27 -21 [facility] capsule [facility] 300 mg 00:00: 00:00 fracture of mouth 3 capsule 00 :00 left ankle, times initial daily for encounter 30 days gabapentin 2021-08- No Closed 300mg Take 1 H arris (NEURONTIN) 0-27 -21 [facility] capsule [facility] 300 mg 00:00: 00:00 fracture of mouth 3 capsule 00 :00 left ankle, times initial daily for encounter 30 days gabapentin 2021-08- No Closed 300mg Take 1 H arris (NEURONTIN) 0-27 -21 [facility] capsule [facility] 300 mg 00:00: 00:00 fracture of mouth 3 capsule 00 :00 left ankle, times initial daily for encounter 30 days gabapentin 2021-08- No Closed 300mg Take 1 H arris (NEURONTIN) 0-27 -21 [facility]olar capsule [facility] 300 mg 00:00: 00:00 fracture of mouth 3 capsule 00 :00 left ankle, times initial daily for encounter 30 days gabapentin 2021-08- No Closed 300mg Take 1 H arris (NEURONTIN) 0 11-21 bimal[facility]olar capsule [facility] 300 mg 00:00: 00:00 fracture of mouth 3 capsule 00 :00 left ankle, times initial daily for encounter 30 days gabapentin 2021-08- No Closed 300mg Take 1 H arris (NEURONTIN) 0 11-21 [facility]imal[facility]olar capsule [facility] 300 mg 00:00: 00:00 fracture of mouth 3 capsule 00 :00 left ankle, times initial daily for encounter 30 days gabapentin 2021-08- No Closed 300mg Take 1 H arris (NEURONTIN) 0- bimalleolar capsule [facility] 300 mg 00:00: 00:00 fracture of mouth 3 capsule 00 :00 left ankle, times initial daily for encounter 30 days gabapentin 2021-08- No Closed 300mg Take 1 H arris (NEURONTIN) 0- [facility]imalleolar capsule [facility] 300 mg 00:00: 00:00 fracture of mouth 3 capsule 00 :00 left ankle, times initial daily for encounter 30 days gabapentin 2021-08- No Closed 300mg Take 1 H arris (NEURONTIN) 0- bimalleolar capsule [facility] 300 mg 00:00: 00:00 fracture of mouth 3 capsule 00 :00 left ankle, times initial daily for encounter 30 days gabapentin 2021-08- No Closed 300mg Take 1 H arris (NEURONTIN) 0- [facility]imalleolar capsule [facility] 300 mg 00:00: 00:00 fracture of mouth 3 capsule 00 :00 left ankle, times initial daily for encounter 30 days gabapentin 2021-08- No Closed 300mg Take 1 H arris (NEURONTIN) 0-21 bimalleolar capsule by [facility] 300 mg 00:00: 00:00 fracture of mouth 3 capsule 00 :00 left ankle, times initial daily for encounter 30 days gabapentin 2021-08- No Closed 300mg Take 1 H arris (NEURONTIN) 0-21 bimalleolar capsule [facility] 300 mg 00:00: 00:00 fracture of mouth 3 capsule 00 :00 left ankle, times initial daily for encounter 30 days gabapentin 2021-08 No Closed 300mg Take 1 H arris (NEURONTIN) 0-27 11-21 bimalleolar capsule by [facility] 300 mg 00:00: 00:00 fracture of mouth 3 capsule 00 :00 left ankle, times initial daily for encounter 30 days gabapentin 2021-08 No Closed 300mg Take 1 H arris (NEURONTIN) 0-27 11-21 bimalleolar capsule by [facility] 300 mg 00:00: 00:00 fracture of mouth 3 capsule 00 :00 left ankle, times initial daily for encounter 30 days gabapentin 2021-08 No Closed 300mg Take 1 H arris (NEURONTIN) 0-27 11-21 bimalleolar capsule by [facility] 300 mg 00:00: 00:00 fracture of mouth 3 capsule 00 :00 left ankle, times initial daily for encounter 30 days gabapentin 2021-08 No Closed 300mg Take 1 H [facility]is (NEURONTIN) 0-27 11-21 bimalleolar capsule by [facility] 300 mg 00:00: 00:00 fracture of mouth 3 capsule 00 :00 left ankle, times initial daily for encounter 30 days HYDROcodone 2021-08- No Closed 1{tbl} Take 1 [facility] -acetaminop 0-27 11-10 bimalleolar tablet by [facility]) 00:00: 00:00 fracture mouth 5-325 mg 00 :00 with every 6 tablet routine hours as healing, needed for unspecified Pain laterality, subsequent encounter HYDROcodone 2021-08- No Closed 1{tbl} Take 1 [facility] -acetaminop 0-27 11-10 bimalleolar tablet by [facility]) 00:00: 00:00 fracture mouth 5-325 mg 00 :00 with every 6 tablet routine hours as healing, needed for unspecified Pain laterality, subsequent encounter HYDROcodone 2021-08- No Closed 1{tbl} Take 1 [facility] -acetaminop 0-27 11-10 bimalleolar tablet by [facility]) 00:00: 00:00 fracture mouth 5-325 mg 00 :00 with every 6 tablet routine hours as healing, needed unspecified for Pain laterality, subsequent encounter HYDROcodone 2021-08- No Closed 1{tbl} Take 1 [facility] -acetaminop 0-27 11-10 bimalleolar tablet by [facility] (PLANO) 00:00: 00:00 fracture mouth 5-325 mg 00 :00 with every 6 tablet routine hours as healing, needed for unspecified Pain laterality, subsequent encounter HYDROcodone 2021-08- No Closed 1{tbl} Take 1 [facility] -acetaminop 0-27 11-10 bimalleolar tablet by [facility] (PLANO) 00:00: 00:00 fracture mouth 5-325 mg 00 :00 with every 6 tablet routine hours as healing, needed for unspecified Pain laterality, subsequent encounter HYDROcodone 2021-08- No Closed 1{tbl} Take 1 [facility] -acetaminop 0-27 11-10 bimalleolar tablet by [facility] (PLANO) 00:00: 00:00 fracture mouth 5-325 mg 00 :00 with every 6 tablet routine hours as healing, needed for unspecified Pain laterality, subsequent encounter HYDROcodone 2021-08- No Closed 1{tbl} Take 1 [facility] -acetaminop 0-27 11-10 bimalleolar tablet by [facility] (PLANO) 00:00: 00:00 fracture mouth 5-325 mg 00 :00 with every 6 tablet routine hours as healing, needed for unspecified Pain laterality, subsequent encounter HYDROcodone 2021-08- No Closed 1{tbl} Take 1 [facility] -acetaminop 0-27 11-10 bimalleolar tablet by [facility] (PLANO) 00:00: 00:00 fracture mouth 5-325 mg 00 :00 with every 6 tablet routine hours as healing, needed for unspecified Pain laterality, subsequent encounter HYDROcodone 2021-08- No Closed 1{tbl} Take 1 [facility] -acetaminop 0-27 11-10 bimalleolar tablet by [facility] (PLANO) 00:00: 00:00 fracture mouth 5-325 mg 00 :00 with every 6 tablet routine hours as healing, needed for unspecified Pain laterality, subsequent encounter HYDROcodone 2021-08- No Closed 1{tbl} Take 1 [facility] -acetaminop 0-27 11-10 bimalleolar tablet by [facility] (PLANO) 00:00: 00:00 fracture mouth 5-325 mg 00 :00 with every 6 tablet routine hours as healing, needed for unspecified Pain laterality, subsequent encounter HYDROcodone 2021-08- No Closed 1{tbl} Take 1 [facility] -acetaminop 0-27 11-10 bimalleolar tablet by [facility] (PLANO) 00:00: 00:00 fracture mouth 5-325 mg 00 :00 with every 6 tablet routine hours as healing, needed for unspecified Pain laterality, subsequent encounter HYDROcodone 2021-08- No Closed 1{tbl} Take 1 [facility] -acetaminop 0-27 11-10 bimalleolar tablet by [facility] (PLANO) 00:00: 00:00 fracture mouth 5-325 mg 00 :00 with every 6 tablet routine hours as healing, needed for unspecified Pain laterality, subsequent encounter HYDROcodone 2021-08- No Closed 1{tbl} Take 1 [facility] -acetaminop 0-27 11-10 bimalleolar tablet by [facility] (PLANO) 00:00: 00:00 fracture mouth 5-325 mg 00 :00 with every 6 tablet routine hours as healing, needed for unspecified Pain laterality, subsequent encounter HYDROcodone 2021-08- No Closed 1{tbl} Take 1 [facility] -acetaminop 0-27 11-10 bimalleolar tablet by [facility] (PLANO) 00:00: 00:00 fracture mouth 5-325 mg 00 :00 with every 6 tablet routine hours as healing, needed for unspecified Pain laterality, subsequent encounter HYDROcodone 2021-08- No Closed 1{tbl} Take 1 [facility] -acetaminop 0-27 11-10 bimalleolar tablet by [facility] (PLANO) 00:00: 00:00 fracture mouth 5-325 mg 00 :00 with every 6 tablet routine hours as healing, needed for unspecified Pain laterality, subsequent encounter HYDROcodone 2021-08- No Closed 1{tbl} Take 1 [facility] -acetaminop 0-27 11-10 bimalleolar tablet by [facility] (PLANO) 00:00: 00:00 fracture mouth 5-325 mg 00 :00 with every 6 tablet routine hours as healing, needed for unspecified Pain laterality, subsequent encounter HYDROcodone 2021-08- No Closed 1{tbl} Take 1 [facility] -acetaminop 0-27 11-10 bimalleolar tablet by [facility] (PLANO) 00:00: 00:00 fracture mouth 5-325 mg 00 :00 with every 6 tablet routine hours as healing, needed for unspecified Pain laterality, subsequent encounter HYDROcodone 2021-08- No Closed 1{tbl} Take 1 [facility] -acetaminop 0-27 11-10 bimalleolar tablet by [facility] (PLANO) 00:00: 00:00 fracture mouth 5-325 mg 00 :00 with every 6 tablet routine hours as healing, needed for unspecified Pain laterality, subsequent encounter HYDROcodone 2021-08- No Closed 1{tbl} Take 1 [facility] -acetaminop 0-20 10-27 bimalleolar tablet by [facility] (PLANO) 00:00: 00:00 fracture mouth 5-325 mg 00 :00 with every 6 tablet routine hours as healing, needed for unspecified Pain laterality, subsequent encounter HYDROcodone 2021-08- No Closed 1{tbl} Take 1 [facility] -acetaminop 0-20 10-27 bimalleolar tablet by [facility] (PLANO) 00:00: 00:00 fracture mouth 5-325 mg 00 :00 with every 6 tablet routine hours as healing, needed for unspecified Pain laterality, subsequent encounter HYDROcodone 2021-08- No Closed 1{tbl} Take 1 [facility] -acetaminop 0-20 10-27 bimalleolar tablet by [facility] (PLANO) 00:00: 00:00 fracture mouth 5-325 mg 00 :00 with every 6 tablet routine hours as healing, needed for unspecified Pain laterality, subsequent encounter HYDROcodone 2021-08- No Closed 1{tbl} Take 1 [facility] -acetaminop 0-20 10-27 bimalleolar tablet by [facility] (PLANO) 00:00: 00:00 fracture mouth 5-325 mg 00 :00 with every 6 tablet routine hours as healing, needed for unspecified Pain laterality, subsequent encounter HYDROcodone 2021-08- No Closed 1{tbl} Take 1 [facility] -acetaminop 0-20 10-27 [facility]imalleolar tablet by [facility] (PLANO) 00:00: 00:00 fracture mouth 5-325 mg 00 :00 with every 6 tablet routine hours as healing, needed for unspecified Pain laterality, subsequent encounter HYDROcodone 2021-08- No Closed 1{tbl} Take 1 [facility] -acetaminop 0-20 10-27 bimalleolar tablet by [facility] (PLANO) 00:00: 00:00 fracture mouth 5-325 mg 00 :00 with every 6 tablet routine hours as healing, needed for unspecified Pain laterality, subsequent encounter HYDROcodone 2021-08- No Closed 1{tbl} Take 1 [facility] -acetaminop 0-20 10-27 bimalleolar tablet by [facility] (PLANO) 00:00: 00:00 fracture mouth 5-325 mg 00 :00 with every 6 tablet routine hours as healing, needed for unspecified Pain laterality, subsequent encounter HYDROcodone 2021-08- No Closed 1{tbl} Take 1 [facility] -acetaminop 0-20 10-27 bimalleolar tablet by [facility] (PLANO) 00:00: 00:00 fracture mouth 5-325 mg 00 :00 with every 6 tablet routine hours as healing, needed for unspecified Pain laterality, subsequent encounter HYDROcodone 2021-08- No Closed 1{tbl} Take 1 [facility] -acetaminop 0-20 10-27 bimalleolar tablet by [facility] (PLANO) 00:00: 00:00 fracture mouth 5-325 mg 00 :00 with every 6 tablet routine hours as healing, needed for unspecified Pain laterality, subsequent encounter HYDROcodone 2021-08- No Closed 1{tbl} Take 1 [facility] -acetaminop 0-20 10-27 [facility]imalleolar tablet by [facility] ([facility]) 00:00: 00:00 fracture mouth 5-325 mg 00 :00 with every 6 tablet routine hours as healing, needed for unspecified Pain laterality, subsequent encounter HYDROcodone 2021-08- No Closed 1{tbl} Take 1 [facility] -acetaminop 0-20 10-27 bimalleolar tablet by [facility] ([facility]) 00:00: 00:00 fracture mouth 5-325 mg 00 :00 with every 6 tablet routine hours as healing, needed for unspecified Pain laterality, subsequent encounter HYDROcodone 2021-08- No Closed 1{tbl} Take 1 [facility] -acetaminop 0-20 10-27 bimalleolar tablet by [facility] ([facility]) 00:00: 00:00 fracture mouth 5-325 mg 00 :00 with every 6 tablet routine hours as healing, needed for unspecified Pain laterality, subsequent encounter HYDROcodone 2021-08- No Closed 1{tbl} Take 1 [facility] -acetaminop 0-20 10-27 bimalleolar tablet by [facility] ([facility]) 00:00: 00:00 fracture mouth 5-325 mg 00 :00 with every 6 tablet routine hours as healing, needed for unspecified Pain laterality, subsequent encounter HYDROcodone 2021-08- No Closed 1{tbl} Take 1 [facility] -acetaminop 0-20 10-27 bimalleolar tablet by [facility] ([facility]) 00:00: 00:00 fracture mouth 5-325 mg 00 :00 with every 6 tablet routine hours as healing, needed for unspecified Pain laterality, subsequent encounter HYDROcodone 2021-08- No Closed 1{tbl} Take 1 [facility] -acetaminop 0-20 10-27 bimalleolar tablet by [facility] ([facility]) 00:00: 00:00 fracture mouth 5-325 mg 00 :00 with every 6 tablet routine hours as healing, needed for unspecified Pain laterality, subsequent encounter HYDROcodone 2021-08- No Closed 1{tbl} Take 1 [facility] -acetaminop 0-20 10-27 bimalleolar tablet by [facility] ([facility]) 00:00: 00:00 fracture mouth 5-325 mg 00 :00 with every 6 tablet routine hours as healing, needed for unspecified Pain laterality, subsequent encounter HYDROcodone 2021-08- No Closed 1{tbl} Take 1 [facility] -acetaminop 0-20 10-27 bimalleolar tablet by [facility] ([facility]) 00:00: 00:00 fracture mouth 5-325 mg 00 :00 with every 6 tablet routine hours as healing, needed for unspecified Pain laterality, subsequent encounter HYDROcodone 2021-08- No Closed 1{tbl} Take 1 [facility] -acetaminop 0-20 10-27 bimalleolar tablet by [facility] ([facility]) 00:00: 00:00 fracture mouth 5-325 mg 00 :00 with every 6 tablet routine hours as healing, needed for unspecified Pain laterality, subsequent encounter ibuprofen 2021-08 Yes Closed 800mg Take 1 [facility] (MOTRIN) 0-14 bimalleolar tablet by [facility] 800 mg 00:00: fracture of mouth tablet 00 left ankle every 8 with hours as routine needed for healing, Pain subsequent encounter ibuprofen 2021-08 Yes Closed 800mg Take 1 [facility] (MOTRIN) 0-14 bimalleolar tablet by [facility] 800 mg 00:00: fracture of mouth tablet 00 left ankle every 8 with hours as routine needed for healing, Pain subsequent encounter ibuprofen 2021-08 Yes Closed 800mg Take 1 [facility] (MOTRIN) 0-14 bimalleolar tablet by [facility] 800 mg 00:00: fracture of mouth tablet 00 left ankle every 8 with hours as routine needed for healing, Pain subsequent encounter ibuprofen 2021-08 Yes Closed 800mg Take 1 [facility] (MOTRIN) 0-14 bimalleolar tablet by [facility] 800 mg 00:00: fracture of mouth tablet 00 left ankle every 8 with hours as routine needed for healing, Pain subsequent encounter ibuprofen 2021-08 Yes Closed 800mg Take 1 [facility] (MOTRIN) 0-14 bimalleolar tablet by [facility] 800 mg 00:00: fracture of mouth tablet 00 left ankle every 8 with hours as routine needed for healing, Pain subsequent encounter ibuprofen 2021-08 Yes Closed 800mg Take 1 [facility] (MOTRIN) 0-14 bimalleolar tablet by [facility] 800 mg 00:00: fracture of mouth tablet 00 left ankle every 8 with hours as routine needed for healing, Pain subsequent encounter ibuprofen 2021-08 Yes Closed 800mg Take 1 [facility] (MOTRIN) 0-14 bimalleolar tablet by [facility] 800 mg 00:00: fracture of mouth tablet 00 left ankle every 8 with hours as routine needed for healing, Pain subsequent encounter ibuprofen 2021-08 Yes Closed 800mg Take 1 [facility] (MOTRIN) 0-14 bimalleolar tablet by [facility] 800 mg 00:00: fracture of mouth tablet 00 left ankle every 8 with hours as routine needed for healing, Pain subsequent encounter ibuprofen 2021-08 Yes Closed 800mg Take 1 [facility] (MOTRIN) 0-14 bimalleolar tablet by [facility] 800 mg 00:00: fracture of mouth tablet 00 left ankle every 8 with hours as routine needed for healing, Pain subsequent encounter ibuprofen 2021-08 Yes Closed 800mg Take 1 [facility] (MOTRIN) 0-14 bimalleolar tablet by [facility] 800 mg 00:00: fracture of mouth tablet 00 left ankle every 8 with hours as routine needed for healing, Pain subsequent encounter ibuprofen 2021-08 Yes Closed 800mg Take 1 [facility] (MOTRIN) 0-14 bimalleolar tablet by [facility] 800 mg 00:00: fracture of mouth tablet 00 left ankle every 8 with hours as routine needed for healing, Pain subsequent encounter ibuprofen 2021-08 Yes Closed 800mg Take 1 [facility] (MOTRIN) 0-14 bimalleolar tablet by [facility] 800 mg 00:00: fracture of mouth tablet 00 left ankle every 8 with hours as routine needed for healing, Pain subsequent encounter ibuprofen 2021-08 Yes Closed 800mg Take 1 [facility] (MOTRIN) 0-14 bimalleolar tablet by [facility] 800 mg 00:00: fracture of mouth tablet 00 left ankle every 8 with hours as routine needed for healing, Pain subsequent encounter ibuprofen 2021-08 Yes Closed 800mg Take 1 [facility] (MOTRIN) 0-14 bimalleolar tablet by [facility] 800 mg 00:00: fracture of mouth tablet 00 left ankle every 8 with hours as routine needed for healing, Pain subsequent encounter ibuprofen 2021-08 Yes Closed 800mg Take 1 [facility] (MOTRIN) 0-14 bimalleolar tablet by [facility] 800 mg 00:00: fracture of mouth tablet 00 left ankle every 8 with hours as routine needed for healing, Pain subsequent encounter ibuprofen 2021-08 Yes Closed 800mg Take 1 [facility] (MOTRIN) 0-14 bimalleolar tablet by [facility] 800 mg 00:00: fracture of mouth tablet 00 left ankle every 8 with hours as routine needed for healing, Pain subsequent encounter ibuprofen 2021-08 Yes Closed 800mg Take 1 [facility] (MOTRIN) 0-14 bimalleolar tablet by [facility] 800 mg 00:00: fracture of mouth tablet 00 left ankle every 8 with hours as routine needed for healing, Pain subsequent encounter ibuprofen 2021-08 Yes Closed 800mg Take 1 [facility] (MOTRIN) 0-14 bimalleolar tablet by [facility] 800 mg 00:00: fracture of mouth tablet 00 left ankle every 8 with hours as routine needed for healing, Pain subsequent encounter HYDROcodone 2021-08- No Closed 1{tbl} Take 1 [facility] -acetaminop 0-14 10-27 bimalleolar tablet by [facility] ([facility]) 00:00: 00:00 fracture of mouth 5-325 mg 00 :00 left ankle every 6 tablet with hours as routine needed for healing, Pain subsequent encounter HYDROcodone 2021-08- No Closed 1{tbl} Take 1 [facility] -acetaminop 0-14 10-27 bimalleolar tablet by [facility] ([facility]) 00:00: 00:00 fracture of mouth 5-325 mg 00 :00 left ankle every 6 tablet with hours as routine needed for healing, Pain subsequent encounter HYDROcodone 2021-08- No Closed 1{tbl} Take 1 [facility] -acetaminop 0-14 10-27 bimalleolar tablet [facility] ([facility]) 00:00: 00:00 fracture of mouth 5-325 mg 00 :00 left ankle every 6 tablet with hours as routine needed for healing, Pain subsequent encounter HYDROcodone 2021-08- No Closed 1{tbl} Take 1 [facility] -acetaminop 0-14 10-27 bimalleolar tablet by [facility] ([facility]) 00:00: 00:00 fracture of mouth 5-325 mg 00 :00 left ankle every 6 tablet with hours as routine needed for healing, Pain subsequent encounter HYDROcodone 2021-08- No Closed 1{tbl} Take 1 [facility] -acetaminop 0-14 10-27 bimalleolar tablet by [facility] ([facility]) 00:00: 00:00 fracture of mouth 5-325 mg 00 :00 left ankle every 6 tablet with hours as routine needed for healing, Pain subsequent encounter HYDROcodone 2021-08- No Closed 1{tbl} Take 1 [facility] -acetaminop 0-14 10-27 bimalleolar tablet by [facility] ([facility]) 00:00: 00:00 fracture of mouth 5-325 mg 00 :00 left ankle every 6 tablet with hours as routine needed for healing, Pain subsequent encounter HYDROcodone 2021-08- No Closed 1{tbl} Take 1 [facility] -acetaminop 0-14 10-27 bimalleolar tablet by [facility] ([facility]) 00:00: 00:00 fracture of mouth 5-325 mg 00 :00 left ankle every 6 tablet with hours as routine needed for healing, Pain subsequent encounter HYDROcodone 2021-08- No Closed 1{tbl} Take 1 [facility] -acetaminop 0-14 10-27 bimalleolar tablet by [facility] ([facility]) 00:00: 00:00 fracture of mouth 5-325 mg 00 :00 left ankle every 6 tablet with hours as routine needed for healing, Pain subsequent encounter HYDROcodone 2021-08- No Closed 1{tbl} Take 1 [facility] -acetaminop 0-14 10-27 [facility]olar [facility] 00:00: 00:00 fracture of mouth 5-325 mg 00 :00 left ankle every 6 tablet with hours as routine needed for healing, Pain subsequent encounter HYDROcodone 2021-08- No Closed 1{tbl} Take 1 [facility] -acetaminop 0-14 10-27 bimalleolar tablet by [facility] ([facility]) 00:00: 00:00 fracture of mouth 5-325 mg 00 :00 left ankle every 6 tablet with hours as routine needed for healing, Pain subsequent encounter HYDROcodone 2021-08- No Closed 1{tbl} Take 1 [facility] -acetaminop 0-14 10-27 bimalleolar tablet by [facility] ([facility]) 00:00: 00:00 fracture of mouth 5-325 mg 00 :00 left ankle every 6 tablet with hours as routine needed for healing, Pain subsequent encounter HYDROcodone 2021-08- No Closed 1{tbl} Take 1 [facility] -acetaminop 0-14 10-27 bimalleolar tablet by [facility] ([facility]) 00:00: 00:00 fracture of mouth 5-325 mg 00 :00 left ankle every 6 tablet with hours as routine needed for healing, Pain subsequent encounter HYDROcodone 2021-08- No Closed 1{tbl} Take 1 [facility] -acetaminop 0-14 10-27 bimalleolar tablet by [facility] ([facility]) 00:00: 00:00 fracture of mouth 5-325 mg 00 :00 left ankle every 6 tablet with hours as routine needed for healing, Pain subsequent encounter HYDROcodone 2021-08- No Closed 1{tbl} Take 1 [facility] -acetaminop 0-14 10-27 [facility]olar tablet [facility] 00:00: 00:00 fracture of mouth 5-325 mg 00 :00 left ankle every 6 tablet with hours as routine needed for healing, Pain subsequent encounter HYDROcodone 2021-08- No Closed 1{tbl} Take 1 [facility] -acetaminop 0-14 10-27 [facility]olar tablet [facility] 00:00: 00:00 fracture of mouth 5-325 mg 00 :00 left ankle every 6 tablet with hours as routine needed for healing, Pain subsequent encounter HYDROcodone 2021-08- No Closed 1{tbl} Take 1 [facility] -acetaminop 0-14 10-27 [facility]olar tablet [facility] 00:00: 00:00 fracture of mouth 5-325 mg 00 :00 left ankle every 6 tablet with hours as routine needed for healing, Pain subsequent encounter HYDROcodone 2021-08- No Closed 1{tbl} Take 1 [facility] -acetaminop 0-14 10-27 [facility]olar tablet [facility] 00:00: 00:00 fracture of mouth 5-325 mg 00 :00 left ankle every 6 tablet with hours as routine needed for healing, Pain subsequent encounter HYDROcodone 2021-08- No Closed 1{tbl} Take 1 [facility] -acetaminop 0-14 10-27 [facility]imalleolar tablet [facility] 00:00: 00:00 fracture of mouth 5-325 mg 00 :00 left ankle every 6 tablet with hours as routine needed for healing, Pain subsequent encounter HYDROcodone 2021-08- No Closed TAKE ONE [facility] -acetaminop 0-06 10-14 [facility]olar (1) TABLET [facility]) 00:00: 00:00 fracture BY MOUTH 7.5-325 mg 00 :00 with EVERY 6 tablet routine HOURS healing, NEEDED FOR unspecified PAIN. laterality, subsequent encounter HYDROcodone 2021-08- No Closed TAKE ONE [facility] -acetaminop 0-06 10-14 [facility]leolar (1) TABLET [facility]) 00:00: 00:00 fracture BY MOUTH 7.5-325 mg 00 :00 with EVERY 6 tablet routine HOURS healing, NEEDED FOR unspecified PAIN. laterality, subsequent encounter HYDROcodone 2021-08- No Closed TAKE ONE [facility] -acetaminop 0-06 10-14 [facility]leolar (1) TABLET [facility]) 00:00: 00:00 fracture BY MOUTH 7.5-325 mg 00 :00 with EVERY 6 tablet routine HOURS healing, NEEDED FOR unspecified PAIN. laterality, subsequent encounter HYDROcodone 2021-08- No Closed TAKE ONE [facility] -acetaminop 0-06 10-14 [facility]leolar (1) [facility]T [facility]) 00:00: 00:00 fracture BY MOUTH 7.5-325 mg 00 :00 with EVERY 6 tablet routine HOURS healing, NEEDED FOR unspecified PAIN. laterality, subsequent encounter HYDROcodone 2021-08- No Closed TAKE ONE [facility] -acetaminop 0-06 10-14 [facility]olar (1) [facility] 00:00: 00:00 fracture BY MOUTH 7.5-325 mg 00 :00 with EVERY 6 tablet routine HOURS healing, NEEDED FOR unspecified PAIN. laterality, subsequent encounter HYDROcodone 2021-08- No Closed TAKE ONE [facility] -acetaminop 0-06 10-14 [facility]imalleolar (1) [facility]T [facility] 00:00: 00:00 fracture BY MOUTH 7.5-325 mg 00 :00 with EVERY 6 tablet routine HOURS healing, NEEDED FOR unspecified PAIN. laterality, subsequent encounter HYDROcodone 2021-08- No Closed TAKE ONE [facility] -acetaminop 0-06 10-14 bimalleolar (1) [facility]T [facility] 00:00: 00:00 fracture BY MOUTH 7.5-325 mg 00 :00 with EVERY 6 tablet routine HOURS healing, NEEDED FOR unspecified PAIN. laterality, subsequent encounter HYDROcodone 2021-08- No Closed TAKE ONE [facility] -acetaminop 0-06 10-14 bimalleolar (1) [facility] 00:00: 00:00 fracture BY MOUTH 7.5-325 mg 00 :00 with EVERY 6 tablet routine HOURS healing, NEEDED FOR unspecified PAIN. laterality, subsequent encounter HYDROcodone 2021-08- No Closed TAKE ONE [facility] -acetaminop 0-06 10-14 bimalleolar (1) [facility]T [facility] 00:00: 00:00 fracture BY MOUTH 7.5-325 mg 00 :00 with EVERY 6 tablet routine HOURS healing, NEEDED FOR unspecified PAIN. laterality, subsequent encounter HYDROcodone 2021-08- No Closed TAKE ONE [facility] -acetaminop 0-06 10-14 bimalleolar (1) [facility] 00:00: 00:00 fracture BY MOUTH 7.5-325 mg 00 :00 with EVERY 6 tablet routine HOURS healing, NEEDED FOR unspecified PAIN. laterality, subsequent encounter HYDROcodone 2021-08- No Closed TAKE ONE [facility] -acetaminop 0-06 10-14 [facility]imal[facility]olar (1) [facility] 00:00: 00:00 fracture BY MOUTH 7.5-325 mg 00 :00 with EVERY 6 tablet routine HOURS healing, NEEDED FOR unspecified PAIN. laterality, subsequent encounter HYDROcodone 2021-08- No Closed TAKE ONE [facility] -acetaminop 0-06 10-14 bimalleolar (1) TABLET [facility] ([facility]) 00:00: 00:00 fracture BY MOUTH 7.5-325 mg 00 :00 with EVERY 6 tablet routine HOURS healing, NEEDED FOR unspecified PAIN. laterality, subsequent encounter HYDROcodone 2021-08- No Closed TAKE ONE [facility] -acetaminop 0-06 10-14 bimalleolar (1) TABLET [facility] ([place]) 00:00: 00:00 fracture BY MOUTH 7.5-325 mg 00 :00 with EVERY 6 tablet routine HOURS healing, NEEDED FOR unspecified PAIN. laterality, subsequent encounter HYDROcodone 2021-08- No Closed TAKE ONE [facility] -acetaminop 0-06 10-14 bimalleolar (1) [facility]T [facility] 00:00: 00:00 fracture BY MOUTH 7.5-325 mg 00 :00 with EVERY 6 tablet routine HOURS healing, NEEDED FOR unspecified PAIN. laterality, subsequent encounter HYDROcodone 2021-08- No Closed TAKE ONE [facility] -acetaminop 0-06 10-14 bimalleolar (1) TABLET [facility] ([place]) 00:00: 00:00 fracture BY MOUTH 7.5-325 mg 00 :00 with EVERY 6 tablet routine HOURS healing, NEEDED FOR unspecified PAIN. laterality, subsequent encounter HYDROcodone 2021-08- No Closed TAKE ONE [facility] -acetaminop 0-06 10-14 bimalleolar (1) [facility]T [facility] 00:00: 00:00 fracture BY MOUTH 7.5-325 mg 00 :00 with EVERY 6 tablet routine HOURS healing, NEEDED FOR unspecified PAIN. laterality, subsequent encounter HYDROcodone 2021-08- No Closed TAKE ONE [facility] -acetaminop 0-06 10-14 bimalleolar (1) TABLET [facility] ([place]) 00:00: 00:00 fracture BY MOUTH 7.5-325 mg 00 :00 with EVERY 6 tablet routine HOURS healing, NEEDED FOR unspecified PAIN. laterality, subsequent encounter HYDROcodone 2021-08- No Closed TAKE ONE [facility] -acetaminop 0-06 10-14 bimalleolar (1) TABLET [facility] ([facility]) 00:00: 00:00 fracture BY MOUTH 7.5-325 mg 00 :00 with EVERY 6 tablet routine HOURS healing, NEEDED FOR unspecified PAIN. laterality, subsequent encounter gabapentin 2021- No Closed 300mg Take 1 [facility] (NEURONTIN) 05-20 bimalleolar capsule by [facility] 300 mg 00:00: 00:00 fracture of mouth 3 capsule 00 :00 left ankle, times initial daily for encounter 30 days gabapentin 2021- No Closed 300mg Take 1 [facility] (NEURONTIN) 05-20 bimalleolar capsule by [facility] 300 mg 00:00: 00:00 fracture of mouth 3 capsule 00 :00 left ankle, times initial daily for encounter 30 days gabapentin 2021- No Closed 300mg Take 1 [facility] (NEURONTIN) 05-20 bimalleolar capsule by [facility] 300 mg 00:00: 00:00 fracture of mouth 3 capsule 00 :00 left ankle, times initial daily for encounter 30 days gabapentin 2021- No Closed 300mg Take 1 [facility] (NEURONTIN) 05-20 bimalleolar capsule by [facility] 300 mg 00:00: 00:00 fracture of mouth 3 capsule 00 :00 left ankle, times initial daily for encounter 30 days gabapentin 2021- No Closed 300mg Take 1 [facility] (NEURONTIN) 05-20 bimalleolar capsule by [facility] 300 mg 00:00: 00:00 fracture of mouth 3 capsule 00 :00 left ankle, times initial daily for encounter 30 days gabapentin 2021- No Closed 300mg Take 1 [facility] (NEURONTIN) 05-20 bimalleolar capsule by [facility] 300 mg 00:00: 00:00 fracture of mouth 3 capsule 00 :00 left ankle, times initial daily for encounter 30 days gabapentin 2021- No Closed 300mg Take 1 [facility] (NEURONTIN) 05-20 bimalleolar capsule by [facility] 300 mg 00:00: 00:00 fracture of mouth 3 capsule 00 :00 left ankle, times initial daily for encounter 30 days gabapentin 2021- No Closed 300mg Take 1 [facility] (NEURONTIN) 05-20 bimalleolar capsule by [facility] 300 mg 00:00: 00:00 fracture of mouth 3 capsule 00 :00 left ankle, times initial daily for encounter 30 days gabapentin 2021- No Closed 300mg Take 1 [facility] (NEURONTIN) 05-20 bimalleolar capsule by [facility] 300 mg 00:00: 00:00 fracture of mouth 3 capsule 00 :00 left ankle, times initial daily for encounter 30 days gabapentin 2021- No Closed 300mg Take 1 [facility] (NEURONTIN) 05-20 bimalleolar capsule by [facility] 300 mg 00:00: 00:00 fracture of mouth 3 capsule 00 :00 left ankle, times initial daily for encounter 30 days gabapentin 2021- No Closed 300mg Take 1 [facility] (NEURONTIN) 05-20 bimalleolar capsule by [facility] 300 mg 00:00: 00:00 fracture of mouth 3 capsule 00 :00 left ankle, times initial daily for encounter 30 days gabapentin 2021- No Closed 300mg Take 1 [facility] (NEURONTIN) 05-20 bimalleolar capsule by [facility] 300 mg 00:00: 00:00 fracture of mouth 3 capsule 00 :00 left ankle, times initial daily for encounter 30 days gabapentin 2021- No Closed 300mg Take 1 [facility] (NEURONTIN) 05-20 bimalleolar capsule by [facility] 300 mg 00:00: 00:00 fracture of mouth 3 capsule 00 :00 left ankle, times initial daily for encounter 30 days gabapentin 2021- No Closed 300mg Take 1 [facility] (NEURONTIN) 05-20 bimalleolar capsule by [facility] 300 mg 00:00: 00:00 fracture of mouth 3 capsule 00 :00 left ankle, times initial daily for encounter 30 days gabapentin 2021- No Closed 300mg Take 1 [facility] (NEURONTIN) 05-20 bimalleolar capsule by [facility] 300 mg 00:00: 00:00 fracture of mouth 3 capsule 00 :00 left ankle, times initial daily for encounter 30 days gabapentin 2021- No Closed 300mg Take 1 [facility] (NEURONTIN) 05-20 bimalleolar capsule by [facility] 300 mg 00:00: 00:00 fracture of mouth 3 capsule 00 :00 left ankle, times initial daily for encounter 30 days gabapentin 2021- No Closed 300mg Take 1 [facility] (NEURONTIN) 05-20 bimalleolar capsule by [facility] 300 mg 00:00: 00:00 fracture of mouth 3 capsule 00 :00 left ankle, times initial daily for encounter 30 days gabapentin 2021- No Closed 300mg Take 1 [facility] (NEURONTIN) 05-20 bimalleolar capsule by [facility] 300 mg 00:00: 00:00 fracture of mouth 3 capsule 00 :00 left ankle, times initial daily for encounter 30 days ibuprofen 2021- No Closed 800mg Take 1 [facility] (MOTRIN) 05-20 bimalleolar tablet by [facility] 800 mg 00:00: 00:00 fracture mouth tablet 00 :00 with every 8 routine hours as healing, needed for unspecified Pain laterality, subsequent encounter ibuprofen 2021- No Closed 800mg Take 1 [facility] (MOTRIN) 05-20 bimalleolar tablet by [facility] 800 mg 00:00: 00:00 fracture mouth tablet 00 :00 with every 8 routine hours as healing, needed for unspecified Pain laterality, subsequent encounter ibuprofen 2021- No Closed 800mg Take 1 [facility] (MOTRIN) 05-20 bimalleolar tablet by [facility] 800 mg 00:00: 00:00 fracture mouth tablet 00 :00 with every 8 routine hours as healing, needed for unspecified Pain laterality, subsequent encounter ibuprofen 2021- No Closed 800mg Take 1 [facility] (MOTRIN) 05-2014 bimalleolar tablet by [facility] 800 mg 00:00: 00:00 fracture mouth tablet 00 :00 with every 8 routine hours as healing, needed for unspecified Pain laterality, subsequent encounter ibuprofen 2021- No Closed 800mg Take 1 [place] [facility] (MOTRIN) 05-2014 bimalleolar tablet by [facility] 800 mg 00:00: 00:00 fracture mouth tablet 00 :00 with every 8 routine hours as healing, needed for unspecified Pain laterality, subsequent encounter ibuprofen 2021- No Closed 800mg Take 1 [facility] (MOTRIN) 05-20 10-14 bimalleolar tablet by [facility] 800 mg 00:00: 00:00 fracture mouth tablet 00 :00 with every 8 routine hours as healing, needed for unspecified Pain laterality, subsequent encounter ibuprofen 2021- No Closed 800mg Take 1 [facility] (MOTRIN) 05-20 10-14 bimalleolar tablet by [facility] 800 mg 00:00: 00:00 fracture mouth tablet 00 :00 with every 8 routine hours as healing, needed for unspecified Pain laterality, subsequent encounter ibuprofen 2021- No Closed 800mg Take 1 [facility] (MOTRIN) 05-2014 bimalleolar tablet by [facility] 800 mg 00:00: 00:00 fracture mouth tablet 00 :00 with every 8 routine hours as healing, needed for unspecified Pain laterality, subsequent encounter ibuprofen 2021- No Closed 800mg Take 1 [facility] (MOTRIN) 05-2014 bimalleolar tablet by [facility] 800 mg 00:00: 00:00 fracture mouth tablet 00 :00 with every 8 routine hours as healing, needed for unspecified Pain laterality, subsequent encounter ibuprofen 2021- No Closed 800mg Take 1 [facility] (MOTRIN) 05-2014 bimalleolar tablet by [facility] 800 mg 00:00: 00:00 fracture mouth tablet 00 :00 with every 8 routine hours as healing, needed for unspecified Pain laterality, subsequent encounter ibuprofen 2021- No Closed 800mg Take 1 [facility] (MOTRIN) 05-2014 bimalleolar tablet by [facility] 800 mg 00:00: 00:00 fracture mouth tablet 00 :00 with every 8 routine hours as healing, needed for unspecified Pain laterality, subsequent encounter ibuprofen 2021- No Closed 800mg Take 1 [facility] (MOTRIN) 05-2014 bimalleolar tablet by [facility] 800 mg 00:00: 00:00 fracture mouth tablet 00 :00 with every 8 routine hours as healing, needed for unspecified Pain laterality, subsequent encounter ibuprofen 2021- No Closed 800mg Take 1 [facility] (MOTRIN) 05-2014 bimalleolar tablet by [facility] 800 mg 00:00: 00:00 fracture mouth tablet 00 :00 with every 8 routine hours as healing, needed for unspecified Pain laterality, subsequent encounter ibuprofen 2021- No Closed 800mg Take 1 [facility] (MOTRIN) 05-2014 bimalleolar tablet by [facility] 800 mg 00:00: 00:00 fracture mouth tablet 00 :00 with every 8 routine hours as healing, needed for unspecified Pain laterality, subsequent encounter ibuprofen 2021- No Closed 800mg Take 1 [facility] (MOTRIN) 05-2014 bimalleolar tablet by [facility] 800 mg 00:00: 00:00 fracture mouth tablet 00 :00 with every 8 routine hours as healing, needed for unspecified Pain laterality, subsequent encounter ibuprofen 2021- No Closed 800mg Take 1 [facility] (MOTRIN) 05-2014 bimalleolar tablet by [facility] 800 mg 00:00: 00:00 fracture mouth tablet 00 :00 with every 8 routine hours as healing, needed for unspecified Pain laterality, subsequent encounter ibuprofen 2021- No Closed 800mg Take 1 [facility] (MOTRIN) 05-2014 bimalleolar tablet by [facility] 800 mg 00:00: 00:00 fracture mouth tablet 00 :00 with every 8 routine hours as healing, needed for unspecified Pain laterality, subsequent encounter ibuprofen 2021- No Closed 800mg Take 1 [facility] (MOTRIN) 05-2014 bimalleolar tablet by [facility] 800 mg 00:00: 00:00 fracture mouth tablet 00 :00 with every 8 routine hours as healing, needed for unspecified Pain laterality, subsequent encounter HYDROcodone 2021- No Closed 1{tbl} Take 1 [facility] -acetaminop 05-20- bimalleolar tablet by [facility] (PLANO) 00:00: 00:00 fracture mouth 7.5-325 mg 00 :00 with every 6 tablet routine hours as healing, needed for unspecified Pain laterality, subsequent encounter HYDROcodone 2021- No Closed 1{tbl} Take 1 [facility] -acetaminop 05-20-06 bimalleolar tablet by [facility] (PLANO) 00:00: 00:00 fracture mouth 7.5-325 mg 00 :00 with every 6 tablet routine hours as healing, needed for unspecified Pain laterality, subsequent encounter HYDROcodone 2021- No Closed 1{tbl} Take 1 [facility] -acetaminop 9-29 10-06 bimalleolar tablet by [facility] (PLANO) 00:00: 00:00 fracture mouth 7.5-325 mg 00 :00 with every 6 tablet routine hours as healing, needed for unspecified Pain laterality, subsequent encounter HYDROcodone 2021- No Closed 1{tbl} Take 1 [facility] -acetaminop 9-29 10-06 bimalleolar tablet by [facility] (PLANO) 00:00: 00:00 fracture mouth 7.5-325 mg 00 :00 with every 6 tablet routine hours as healing, needed for unspecified Pain laterality, subsequent encounter HYDROcodone 2021- No Closed 1{tbl} Take 1 [facility] -acetaminop 9-29 10-06 bimalleolar tablet by [facility] (PLANO) 00:00: 00:00 fracture mouth 7.5-325 mg 00 :00 with every 6 tablet routine hours as healing, needed for unspecified Pain laterality, subsequent encounter HYDROcodone 2021- No Closed 1{tbl} Take 1 [facility] -acetaminop 9-29 10-06 bimalleolar tablet by Health [facility] (PLANO) 00:00: 00:00 fracture mouth 7.5-325 mg 00 :00 with every 6 tablet routine hours as healing, needed for unspecified Pain laterality, subsequent encounter HYDROcodone 2021- No Closed 1{tbl} Take 1 [facility] -acetaminop 9-29 10-06 bimalleolar tablet by [facility] (PLANO) 00:00: 00:00 fracture mouth 7.5-325 mg 00 :00 with every 6 tablet routine hours as healing, needed for unspecified Pain laterality, subsequent encounter HYDROcodone 2021- No Closed 1{tbl} Take 1 [facility] -acetaminop 9-29 10-06 bimalleolar tablet by [facility] [place]) 00:00: 00:00 fracture mouth 7.5-325 mg 00 :00 with every 6 tablet routine hours as healing, needed for unspecified Pain laterality, subsequent encounter HYDROcodone 2021- No Closed 1{tbl} Take 1 [facility] -acetaminop 9-29 10-06 bimalleolar tablet by [facility] (PLANO) 00:00: 00:00 fracture mouth 7.5-325 mg 00 :00 with every 6 tablet routine hours as healing, needed for unspecified Pain laterality, subsequent encounter HYDROcodone 2021- No Closed 1{tbl} Take 1 [facility] -acetaminop 9-29 10-06 bimalleolar tablet by [facility] (PLANO) 00:00: 00:00 fracture mouth 7.5-325 mg 00 :00 with every 6 tablet routine hours as healing, needed for unspecified Pain laterality, subsequent encounter HYDROcodone 2021- No Closed 1{tbl} Take 1 [facility] -acetaminop 9-29 10-06 bimalleolar tablet by [facility] (PLANO) 00:00: 00:00 fracture mouth 7.5-325 mg 00 :00 with every 6 tablet routine hours as healing, needed for unspecified Pain laterality, subsequent encounter HYDROcodone 2021- No Closed 1{tbl} Take 1 [facility] -acetaminop 9-29 10-06 bimalleolar tablet by [facility] (PLANO) 00:00: 00:00 fracture mouth 7.5-325 mg 00 :00 with every 6 tablet routine hours as healing, needed for unspecified Pain laterality, subsequent encounter HYDROcodone 2021- No Closed 1{tbl} Take 1 [facility] -acetaminop 9-29 10-06 bimalleolar tablet by [facility] (PLANO) 00:00: 00:00 fracture mouth 7.5-325 mg 00 :00 with every 6 tablet routine hours as healing, needed for unspecified Pain laterality, subsequent encounter HYDROcodone 2021- No Closed 1{tbl} Take 1 [facility] -acetaminop 9-29 10-06 bimalleolar tablet by [facility] (PLANO) 00:00: 00:00 fracture mouth 7.5-325 mg 00 :00 with every 6 tablet routine hours as healing, needed for unspecified Pain laterality, subsequent encounter HYDROcodone 2021- No Closed 1{tbl} Take 1 [facility] -acetaminop 9-29 10-06 bimalleolar tablet by [facility] [place]) 00:00: 00:00 fracture mouth 7.5-325 mg 00 :00 with every 6 tablet routine hours as healing, needed for unspecified Pain laterality, subsequent encounter HYDROcodone 2021- No Closed 1{tbl} Take 1 [facility] -acetaminop 9-29 10-06 bimalleolar tablet by [facility] hen (PLANO) 00:00: 00:00 fracture mouth 7.5-325 mg 00 :00 with every 6 tablet routine hours as healing, needed for unspecified Pain laterality, subsequent encounter HYDROcodone 2021- No Closed 1{tbl} Take 1 [facility] -acetaminop 9-29 10-06 bimalleolar tablet by [facility] (PLANO) 00:00: 00:00 fracture mouth 7.5-325 mg 00 :00 with every 6 tablet routine hours as healing, needed for unspecified Pain laterality, subsequent encounter HYDROcodone 2021- No Closed 1{tbl} Take 1 [facility] -acetaminop 9-29 10-06 bimalleolar tablet by [facility] (PLANO) 00:00: 00:00 fracture mouth 7.5-325 mg 00 :00 with every 6 tablet routine hours as healing, needed for unspecified Pain laterality, subsequent encounter HYDROcodone 2021- No Closed 1{tbl} Take 1 [facility] -acetaminop 9-23 10-06 bimalleolar tablet by [facility] (PLANO) 00:00: 00:00 fracture of mouth 10-325 mg 00 :00 left ankle every 6 tablet with hours as malunion needed for Pain HYDROcodone 2021- No Closed 1{tbl} Take 1 [facility] -acetaminop 9-23 10-06 bimalleolar tablet by [facility] [place]) 00:00: 00:00 fracture of mouth 10-325 mg 00 :00 left ankle every 6 tablet with hours as malunion needed for Pain HYDROcodone 2021- No Closed 1{tbl} Take 1 [facility] -acetaminop 9-23 10-06 bimalleolar tablet by [facility] (PLANO) 00:00: 00:00 fracture of mouth 10-325 mg 00 :00 left ankle every 6 tablet with hours as malunion needed for Pain HYDROcodone 2022-0 2022- No Closed 1{tbl} Take 1 [facility] -acetaminop 9-23 10-06 bimalleolar tablet by [facility] (PLANO) 00:00: 00:00 fracture of mouth 10-325 mg 00 :00 left ankle every 6 tablet with hours as malunion needed for Pain HYDROcodone 2021-2021- No Closed 1{tbl} Take 1 [facility] -acetaminop 9-23 10-06 bimalleolar tablet by [facility] hen (PLANO) 00:00: 00:00 fracture of mouth 10-325 mg 00 :00 left ankle every 6 tablet with hours as malunion needed for Pain HYDROcodone 2021-2021- No Closed 1{tbl} Take 1 [facility] -acetaminop 9-23 10-06 bimalleolar tablet by [facility] (PLANO) 00:00: 00:00 fracture of mouth 10-325 mg 00 :00 left ankle every 6 tablet with hours as malunion needed for Pain HYDROcodone 2021-2021- No Closed 1{tbl} Take 1 [facility] -acetaminop 9-23 10-06 bimalleolar tablet by [facility] (PLANO) 00:00: 00:00 fracture of mouth 10-325 mg 00 :00 left ankle every 6 tablet with hours as malunion needed for Pain HYDROcodone 2021-2021- No Closed 1{tbl} Take 1 [facility] -acetaminop 9-23 10-06 bimalleolar tablet by [facility] (PLANO) 00:00: 00:00 fracture of mouth 10-325 mg 00 :00 left ankle every 6 tablet with hours as malunion needed for Pain HYDROcodone 2021-0 2021- No Closed 1{tbl} Take 1 [facility] -acetaminop 9-23 10-06 bimalleolar tablet by [facility] (PLANO) 00:00: 00:00 fracture of mouth 10-325 mg 00 :00 left ankle every 6 tablet with hours as malunion needed for Pain HYDROcodone 2021-0 2021- No Closed 1{tbl} Take 1 [facility] -acetaminop 9-23 10-06 bimalleolar tablet by [facility] (PLANO) 00:00: 00:00 fracture of mouth 10-325 mg 00 :00 left ankle every 6 tablet with hours as malunion needed for Pain HYDROcodone 2021-0 2021- No Closed 1{tbl} Take 1 [facility] -acetaminop 9-23 10-06 bimalleolar tablet by [facility] (PLANO) 00:00: 00:00 fracture of mouth 10-325 mg 00 :00 left ankle every 6 tablet with hours as malunion needed for Pain HYDROcodone 2021-0 2021- No Closed 1{tbl} Take 1 [facility] -acetaminop 9-23 10-06 bimalleolar tablet by [facility] (PLANO) 00:00: 00:00 fracture of mouth 10-325 mg 00 :00 left ankle every 6 tablet with hours as malunion needed for Pain HYDROcodone 2021-2021- No Closed 1{tbl} Take 1 [facility] -acetaminop 9-23 10-06 bimalleolar tablet by [facility] (PLANO) 00:00: 00:00 fracture of mouth 10-325 mg 00 :00 left ankle every 6 tablet with hours as malunion needed for Pain HYDROcodone 2021-2021- No Closed 1{tbl} Take 1 [facility] -acetaminop 9-23 10-06 bimalleolar tablet by [facility] (PLANO) 00:00: 00:00 fracture of mouth 10-325 mg 00 :00 left ankle every 6 tablet with hours as malunion needed for Pain HYDROcodone 2021-0 2021- No Closed 1{tbl} Take 1 [facility] -acetaminop 9-23 10-06 bimalleolar tablet by [facility] (PLANO) 00:00: 00:00 fracture of mouth 10-325 mg 00 :00 left ankle every 6 tablet with hours as malunion needed for Pain HYDROcodone 2021-0 2021- No Closed 1{tbl} Take 1 [facility] -acetaminop 9-23 10-06 bimalleolar tablet by [facility] (PLANO) 00:00: 00:00 fracture of mouth 10-325 mg 00 :00 left ankle every 6 tablet with hours as malunion needed for Pain HYDROcodone 2021-0 2021- No Closed 1{tbl} Take 1 [facility] -acetaminop 9-23 10-06 bimalleolar tablet by [facility] (PLANO) 00:00: 00:00 fracture of mouth 10-325 mg 00 :00 left ankle every 6 tablet with hours as malunion needed for Pain HYDROcodone 2021- No Closed 1{tbl} Take 1 [facility] -acetaminop 9-23 10-06 bimalleolar tablet by [facility] (PLANO) 00:00: 00:00 fracture of mouth 10-325 mg 00 :00 left ankle every 6 tablet with hours as malunion needed for Pain venlafaxine Yes QD Take by [facility] ris HCl 9-16 [facility] (EFFEXOR 15:18: daily OR) 19 trazodone 0 Yes QD Take by [facility] HCl 9-16 [facility] (TRAZODONE 15:18: daily OR) 19 diphenhydra Yes Take by [facility] mine HCl 9-16 mouth at [facility] (BENADRYL 15:18: bedtime ALLERGY OR) 19 nightly venlafaxine Yes QD Take by [facility] ris HCl 9-16 [facility] (EFFEXOR 15:18: daily OR) 19 trazodone 0 Yes QD Take by [facility] HCl 9-16 [facility] (TRAZODONE 15:18: daily OR) 19 diphenhydra 0 Yes Take by [facility] ris mine HCl 9-16 mouth at [facility] (BENADRYL 15:18: bedtime ALLERGY OR) 19 nightly venlafaxine 0 Yes QD Take by [facility] ris HCl 9-16 mouth [facility] (EFFEXOR 15:18: daily OR) 19 trazodone 0 Yes QD Take by [facility] HCl 9-16 mouth [facility] (TRAZODONE 15:18: daily OR) 19 diphenhydra 0 Yes Take by [facility] ris mine HCl 9-16 mouth at [facility] (BENADRYL 15:18: bedtime ALLERGY OR) 19 nightly venlafaxine 0 Yes QD Take by [facility] ris HCl 9-16 mouth [facility] (EFFEXOR 15:18: daily OR) 19 trazodone 0 Yes QD Take by [facility] HCl 9-16 mouth [facility] (TRAZODONE 15:18: daily OR) 19 diphenhydra 0 Yes Take by [facility] mine HCl 9-16 mouth at [facility] (BENADRYL 15:18: bedtime ALLERGY OR) 19 nightly venlafaxine 0 Yes QD Take by [facility] HCl 9-16 [facility] (EFFEXOR 15:18: daily OR) 19 trazodone 0 Yes QD Take by [facility] HCl 9-16 [facility] (TRAZODONE 15:18: daily OR) 19 diphenhydra 0 Yes Take by [facility] mine HCl 9-16 mouth at [facility] (BENADRYL 15:18: bedtime ALLERGY OR) 19 nightly venlafaxine 0 Yes QD Take by [facility] HCl 9-16 [facility] (EFFEXOR 15:18: daily OR) 19 trazodone 0 Yes QD Take by [facility] HCl 9-16 [facility] (TRAZODONE 15:18: daily OR) 19 diphenhydra 0 Yes Take by [facility] mine HCl 9-16 mouth at [facility] (BENADRYL 15:18: bedtime ALLERGY OR) 19 nightly venlafaxine 0 Yes QD Take by [facility] HCl 9-16 [facility] (EFFEXOR 15:18: daily OR) 19 trazodone 0 Yes QD Take by [facility] HCl 9-16 [facility] (TRAZODONE 15:18: daily OR) 19 diphenhydra 0 Yes Take by [facility] mine HCl 9-16 mouth at [facility] (BENADRYL 15:18: bedtime ALLERGY OR) 19 nightly venlafaxine 0 Yes QD Take by [facility] HCl 9-16 mouth [facility] (EFFEXOR 15:18: daily OR) 19 trazodone 0 Yes QD Take by [facility] HCl 9-16 mouth [facility] (TRAZODONE 15:18: daily OR) 19 diphenhydra 0 Yes Take by [facility] HCl 9-16 mouth at [facility] (BENADRYL 15:18: bedtime ALLERGY OR) 19 nightly venlafaxine 0 Yes QD Take by [facility] HCl 9-16 mouth [facility] (EFFEXOR 15:18: daily OR) 19 trazodone 0 Yes QD Take by [facility] HCl 9-16 [facility] (TRAZODONE 15:18: daily OR) 19 diphenhydra 0 Yes Take by [facility] HCl 9-16 mouth at [facility] (BENADRYL 15:18: bedtime ALLERGY OR) 19 nightly venlafaxine 0 Yes QD Take by [facility] HCl 9-16 mouth [facility] (EFFEXOR 15:18: daily OR) 19 trazodone 0 Yes QD Take by [facility] HCl 9-16 [facility] (TRAZODONE 15:18: daily OR) 19 diphenhydra 0 Yes Take by [facility] mine HCl 9-16 mouth at [facility] (BENADRYL 15:18: bedtime ALLERGY OR) 19 nightly venlafaxine 0 Yes QD Take by [facility] HCl 9-16 mouth [facility] (EFFEXOR 15:18: daily OR) 19 trazodone 0 Yes QD Take by [facility] HCl 9-16 mouth [facility] (TRAZODONE 15:18: daily OR) 19 diphenhydra 0 Yes Take by [facility] mine HCl 9-16 mouth at [facility] (BENADRYL 15:18: bedtime ALLERGY OR) 19 nightly venlafaxine 0 Yes QD Take by [facility] HCl 9-16 mouth [facility] (EFFEXOR 15:18: daily OR) 19 trazodone 0 Yes QD Take by [facility] HCl 9-16 mouth [facility] (TRAZODONE 15:18: daily OR) 19 diphenhydra 0 Yes Take by [facility] HCl 9-16 mouth at [facility] (BENADRYL 15:18: bedtime ALLERGY OR) 19 nightly venlafaxine 0 Yes QD Take by [facility] HCl 9-16 mouth [facility] (EFFEXOR 15:18: daily OR) 19 trazodone 0 Yes QD Take by [facility] HCl 9-16 mouth [facility] (TRAZODONE 15:18: daily OR) 19 diphenhydra 0 Yes Take by [facility] HCl 9-16 mouth at [facility] (BENADRYL 15:18: bedtime ALLERGY OR) 19 nightly venlafaxine 0 Yes QD Take by [facility] HCl 9-16 mouth [facility] (EFFEXOR 15:18: daily OR) 19 trazodone 0 Yes QD Take by [facility] HCl 9-16 mouth [facility] (TRAZODONE 15:18: daily OR) 19 diphenhydra 2021-0 Yes Take by [facility] HCl 9-16 mouth at [facility] (BENADRYL 15:18: bedtime ALLERGY OR) 19 nightly venlafaxine 0 Yes QD Take by [facility] HCl 9-16 mouth [facility] (EFFEXOR 15:18: daily OR) 19 trazodone 0 Yes QD Take by [facility] HCl 9-16 mouth [facility] (TRAZODONE 15:18: daily OR) 19 diphenhydra 0 Yes Take by [facility] mine HCl 9-16 mouth at [facility] (BENADRYL 15:18: bedtime ALLERGY OR) 19 nightly venlafaxine 0 Yes QD Take by [facility] HCl 9-16 mouth [facility] (EFFEXOR 15:18: daily OR) 19 trazodone 0 Yes QD Take by [facility] HCl 9-16 mouth [facility] (TRAZODONE 15:18: daily OR) 19 diphenhydra 0 Yes Take by [facility] mine HCl 9-16 mouth at [facility] (BENADRYL 15:18: bedtime ALLERGY OR) 19 nightly venlafaxine 0 Yes QD Take by [facility] HCl 9-16 mouth [facility] (EFFEXOR 15:18: daily OR) 19 trazodone 0 Yes QD Take by [facility] HCl 9-16 mouth [facility] (TRAZODONE 15:18: daily OR) 19 diphenhydra 0 Yes Take by [facility] mine HCl 9-16 mouth at [facility] (BENADRYL 15:18: bedtime ALLERGY OR) 19 nightly venlafaxine 0 Yes QD Take by [facility] HCl 9-16 mouth [facility] (EFFEXOR 15:18: daily OR) 19 trazodone 0 Yes QD Take by [facility] HCl 9-16 mouth [facility] (TRAZODONE 15:18: daily OR) 19 diphenhydra 0 Yes Take by [facility] mine HCl 9-16 mouth at [facility] (BENADRYL 15:18: bedtime ALLERGY OR) 19 nightly Cyclobenzap 0 Yes Closed 10mg Take 2 [facility] rine 9-16 bimalleolar tablets by [facility] (FLEXERIL) 00:00: fracture of mouth 3 5 mg tablet 00 left ankle, times initial daily as encounter needed for Muscle Spasms Cyclobenzap 2022-0 Yes Closed 10mg Take 2 [facility] rine 9-16 bimalleolar tablets by [facility] (FLEXERIL) 00:00: fracture of mouth 3 5 mg tablet 00 left ankle, times initial daily as encounter needed for Muscle Spasms Cyclobenzap 2022-0 Yes Closed 10mg Take 2 [facility] rine 9-16 bimalleolar tablets by [facility] (FLEXERIL) 00:00: fracture of mouth 3 5 mg tablet 00 left ankle, times initial daily as encounter needed for Muscle Spasms Cyclobenzap 2022-0 Yes Closed 10mg Take 2 [facility] rine 9-16 bimalleolar tablets by [facility] (FLEXERIL) 00:00: fracture of mouth 3 5 mg tablet 00 left ankle, times initial daily as encounter needed for Muscle Spasms Cyclobenzap 2022-0 Yes Closed 10mg Take 2 [facility] rine 9-16 bimalleolar tablets by [facility] (FLEXERIL) 00:00: fracture of mouth 3 5 mg tablet 00 left ankle, times initial daily as encounter needed for Muscle Spasms Cyclobenzap 2022-0 Yes Closed 10mg Take 2 [facility] rine 9-16 bimalleolar tablets by [facility] (FLEXERIL) 00:00: fracture of mouth 3 5 mg tablet 00 left ankle, times initial daily as encounter needed for Muscle Spasms Cyclobenzap 2022-0 Yes Closed 10mg Take 2 [facility] rine 9-16 bimalleolar tablets by [facility] (FLEXERIL) 00:00: fracture of mouth 3 5 mg tablet 00 left ankle, times initial daily as encounter needed for Muscle Spasms Cyclobenzap 2022-0 Yes Closed 10mg Take 2 [facility] rine 9-16 bimalleolar tablets by [facility] (FLEXERIL) 00:00: fracture of mouth 3 5 mg tablet 00 left ankle, times initial daily as encounter needed for Muscle Spasms Cyclobenzap 2022-0 Yes Closed 10mg Take 2 [facility] rine 9-16 bimalleolar tablets by [facility] (FLEXERIL) 00:00: fracture of mouth 3 5 mg tablet 00 left ankle, times initial daily as encounter needed for Muscle Spasms Cyclobenzap 2022-0 Yes Closed 10mg Take 2 [facility] rine 9-16 bimalleolar tablets by [facility] (FLEXERIL) 00:00: fracture of mouth 3 5 mg tablet 00 left ankle, times initial daily as encounter needed for Muscle Spasms Cyclobenzap 2022-0 Yes Closed 10mg Take 2 [facility] rine 9-16 bimalleolar tablets by [facility] (FLEXERIL) 00:00: fracture of mouth 3 5 mg tablet 00 left ankle, times initial daily as encounter needed for Muscle Spasms Cyclobenzap 2022-0 Yes Closed 10mg Take 2 [facility] rine 9-16 bimalleolar tablets by [facility] (FLEXERIL) 00:00: fracture of mouth 3 5 mg tablet 00 left ankle, times initial daily as encounter needed for Muscle Spasms Cyclobenzap 2022-0 Yes Closed 10mg Take 2 [facility] rine 9-16 bimalleolar tablets by [facility] (FLEXERIL) 00:00: fracture of mouth 3 5 mg tablet 00 left ankle, times initial daily as encounter needed for Muscle Spasms Cyclobenzap 2022-0 Yes Closed 10mg Take 2 [facility] rine 9-16 bimalleolar tablets by [facility] (FLEXERIL) 00:00: fracture of mouth 3 5 mg tablet 00 left ankle, times initial daily as encounter needed for Muscle Spasms Cyclobenzap 2022-0 Yes Closed 10mg Take 2 [facility] rine 9-16 bimalleolar tablets by [facility] (FLEXERIL) 00:00: fracture of mouth 3 5 mg tablet 00 left ankle, times initial daily as encounter needed for Muscle Spasms Cyclobenzap 2022-0 Yes Closed 10mg Take 2 [facility] rine 9-16 bimalleolar tablets by [facility] (FLEXERIL) 00:00: fracture of mouth 3 5 mg tablet 00 left ankle, times initial daily as encounter needed for Muscle Spasms Cyclobenzap 2022-0 Yes Closed 10mg Take 2 [facility] rine 9-16 bimalleolar tablets by [facility] (FLEXERIL) 00:00: fracture of mouth 3 5 mg tablet 00 left ankle, times initial daily as encounter needed for Muscle Spasms Cyclobenzap 2022-0 Yes Closed 10mg Take 2 [facility] rine 9-16 bimalleolar tablets by [facility] (FLEXERIL) 00:00: fracture of mouth 3 5 mg tablet 00 left ankle, times initial daily as encounter needed for Muscle Spasms aspirin 325 0 2021- No Closed 325mg QD Take 1 [facility] mg tablet 05-07 bimalleolar tablet by Health 00:00: 23:59 fracture of mouth 00 :00 left ankle daily for 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 aspirin 325 2021- No Closed 325mg QD Take 1 [facility] mg tablet 05-07 bimalleolar tablet by [facility] 00:00: 23:59 fracture of mouth 00 :00 left ankle daily for 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 aspirin 325 2021- No Closed 325mg QD Take 1 [facility] mg tablet 05-07 bimalleolar tablet by [facility] 00:00: 23:59 fracture of mouth 00 :00 left ankle daily for 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 aspirin 325 2021- No Closed 325mg QD Take 1 [facility] mg tablet 05-07 bimalleolar tablet by Health 00:00: 23:59 fracture of mouth 00 :00 left ankle daily for 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 aspirin 325 2021- No Closed 325mg QD Take 1 [facility] mg tablet 05-07 bimalleolar tablet by Health 00:00: 23:59 fracture of mouth 00 :00 left ankle daily for 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 aspirin 325 2021- No Closed 325mg QD Take 1 [facility] mg tablet 05-07 bimalleolar tablet by Health 00:00: 23:59 fracture of mouth 00 :00 left ankle daily for 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 aspirin 325 2021-2021- No Closed 325mg QD Take 1 [facility] mg tablet 05-07 bimalleolar tablet by [facility] 00:00: 23:59 fracture of mouth 00 :00 left ankle daily for 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 aspirin 325 2021-2021- No Closed 325mg QD Take 1 [facility] mg tablet 05-07 bimalleolar tablet by Health 00:00: 23:59 fracture of mouth 00 :00 left ankle daily for 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 aspirin 325 2021-2021- No Closed 325mg QD Take 1 [facility] mg tablet 05-07 bimalleolar tablet by Health 00:00: 23:59 fracture of mouth 00 :00 left ankle daily for 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 aspirin 325 2021- No Closed 325mg QD Take 1 [facility] mg tablet 05-07 bimalleolar tablet by Health 00:00: 23:59 fracture of mouth 00 :00 left ankle daily for 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 aspirin 325 2021-2021- No Closed 325mg QD Take 1 [facility] mg tablet 05-07 bimalleolar tablet by Health 00:00: 23:59 fracture of mouth 00 :00 left ankle daily for 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 aspirin 325 2021-2021- No Closed 325mg QD Take 1 [facility] mg tablet 05-07 bimalleolar tablet by Health 00:00: 23:59 fracture of mouth 00 :00 left ankle daily for 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 aspirin 325 2021- No Closed 325mg QD Take 1 [facility] mg tablet 05-07 bimalleolar tablet by Health 00:00: 23:59 fracture of mouth 00 :00 left ankle daily for 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 aspirin 325 2021- No Closed 325mg QD Take 1 [facility] mg tablet 05-07 bimalleolar tablet by Health 00:00: 23:59 fracture of mouth 00 :00 left ankle daily for 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 aspirin 325 2021- No Closed 325mg QD Take 1 [facility] mg tablet 05-07 bimalleolar tablet by Health 00:00: 23:59 fracture of mouth 00 :00 left ankle daily for 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 aspirin 325 2021-2021- No Closed 325mg QD Take 1 [facility] mg tablet 05-07 bimalleolar tablet by Health 00:00: 23:59 fracture of mouth 00 :00 left ankle daily for 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 aspirin 325 2021-0 2021- No Closed 325mg QD Take 1 [facility] mg tablet 05-07 bimalleolar tablet by Health 00:00: 23:59 fracture of mouth 00 :00 left ankle daily for 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 aspirin 325 2021-2021- No Closed 325mg QD Take 1 [facility] mg tablet 05-07 bimalleolar tablet by Health 00:00: 23:59 fracture of mouth 00 :00 left ankle daily for 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 acetaminoph 2022-0 2022- No Closed 1000mg Take 2 [facility] en 9-16 10-16 [facility]leolar tablets by [facility] (TYLENOL) 00:00: 23:59 fracture of mouth 500 mg 00 :00 left ankle every 8 tablet with hours for malunion 30 days acetaminoph 2021-0 2022- No Closed 1000mg Take 2 [facility] en 9-16 10-16 [facility]imalleolar tablets by [facility] (TYLENOL) 00:00: 23:59 fracture of mouth 500 mg 00 :00 left ankle every 8 tablet with hours for malunion 30 days acetaminoph 2021-0 2021- No Closed 1000mg Take 2 [facility] en 9-16 10-16 [facility]imalleolar tablets by [facility] (TYLENOL) 00:00: 23:59 fracture of mouth 500 mg 00 :00 left ankle every 8 tablet with hours for malunion 30 days acetaminoph 2021-0 2021- No Closed 1000mg Take 2 [facility] en 9-16 10-16 [facility]imalleolar tablets by [facility] (TYLENOL) 00:00: 23:59 fracture of mouth 500 mg 00 :00 left ankle every 8 tablet with hours for malunion 30 days acetaminoph 0 2021- No Closed 1000mg Take 2 [facility] en 9-16 10-16 [facility]imalleolar tablets by [facility] (TYLENOL) 00:00: 23:59 fracture of mouth 500 mg 00 :00 left ankle every 8 tablet with hours for malunion 30 days acetaminoph 0 2021- No Closed 1000mg Take 2 [facility] en 9-16 10-16 [facility]imalleolar tablets by [facility] (TYLENOL) 00:00: 23:59 fracture of mouth 500 mg 00 :00 left ankle every 8 tablet with hours for malunion 30 days acetaminoph 2021-0 2021- No Closed 1000mg Take 2 [facility] en 9-16 10-16 [facility]imalleolar tablets by [facility] (TYLENOL) 00:00: 23:59 fracture of mouth 500 mg 00 :00 left ankle every 8 tablet with hours for malunion 30 days acetaminoph 2021-0 2022- No Closed 1000mg Take 2 [facility] 9-16 10-16 [facility]imalleolar tablets by [facility] (TYLENOL) 00:00: 23:59 fracture of mouth 500 mg 00 :00 left ankle every 8 tablet with hours for malunion 30 days acetaminoph 0 2021- No Closed 1000mg Take 2 [facility] 9-16 10-16 bimalleolar tablets by [facility] (TYLENOL) 00:00: 23:59 fracture of mouth 500 mg 00 :00 left ankle every 8 tablet with hours for malunion 30 days acetaminoph 2021- No Closed 1000mg Take 2 [facility] 9-16 10-16 bimalleolar tablets [facility] (TYLENOL) 00:00: 23:59 fracture of mouth 500 mg 00 :00 left ankle every 8 tablet with hours for malunion 30 days acetaminoph 2021- No Closed 1000mg Take 2 [facility] 9-16 10-16 bimalleolar tablets [facility] (TYLENOL) 00:00: 23:59 fracture of mouth 500 mg 00 :00 left ankle every 8 tablet with hours for malunion 30 days acetaminoph 2021- No Closed 1000mg Take 2 [facility] 9-16 10-16 bimalleolar tablets [facility] (TYLENOL) 00:00: 23:59 fracture of mouth 500 mg 00 :00 left ankle every 8 tablet with hours for malunion 30 days acetaminoph 2021- No Closed 1000mg Take 2 [facility] 9-16 10-16 bimalleolar tablets [facility] (TYLENOL) 00:00: 23:59 fracture of mouth 500 mg 00 :00 left ankle every 8 tablet with hours for malunion 30 days acetaminoph 2021- No Closed 1000mg Take 2 [facility] 9-16 10-16 bimalleolar tablets [facility] (TYLENOL) 00:00: 23:59 fracture of mouth 500 mg 00 :00 left ankle every 8 tablet with hours for malunion 30 days acetaminoph 2021- No Closed 1000mg Take 2 [facility] 9-16 10-16 bimalleolar tablets [facility] (TYLENOL) 00:00: 23:59 fracture of mouth 500 mg 00 :00 left ankle every 8 tablet with hours for malunion 30 days acetaminoph 0 2021- No Closed 1000mg Take 2 [facility] 9-16 10-16 bimalleolar tablets [facility] (TYLENOL) 00:00: 23:59 fracture of mouth 500 mg 00 :00 left ankle every 8 tablet with hours for malunion 30 days acetaminoph 2021- No Closed 1000mg Take 2 [facility] en 05-07 10-16 bimalleolar tablets by [facility] (TYLENOL) 00:00: 23:59 fracture of mouth 500 mg 00 :00 left ankle every 8 tablet with hours for malunion 30 days acetaminoph 2021- No Closed 1000mg Take 2 [facility] en 05-07 10-16 b[facility]leolar tablets [facility] (TYLENOL) 00:00: 23:59 fracture of mouth 500 mg 00 :00 left ankle every 8 tablet with hours for malunion 30 days gabapentin 2021- No Closed 300mg Take 1 [facility] (NEURONTIN) 05-07 bimalleolar capsule by [facility] 300 mg 00:00: 00:00 fracture of mouth 3 capsule 00 :00 left ankle, times initial daily for encounter 30 days gabapentin 2021- No Closed 300mg Take 1 [facility] (NEURONTIN) 05-07 bimalleolar capsule by [facility] 300 mg 00:00: 00:00 fracture of mouth 3 capsule 00 :00 left ankle, times initial daily for encounter 30 days gabapentin 2021- No Closed 300mg Take 1 [facility] (NEURONTIN) 05-07 bimalleolar capsule by [facility] 300 mg 00:00: 00:00 fracture of mouth 3 capsule 00 :00 left ankle, times initial daily for encounter 30 days gabapentin 2021- No Closed 300mg Take 1 [facility] (NEURONTIN) 05-07 bimalleolar capsule by [facility] 300 mg 00:00: 00:00 fracture of mouth 3 capsule 00 :00 left ankle, times initial daily for encounter 30 days gabapentin 2021- No Closed 300mg Take 1 [facility] (NEURONTIN) 05-07 bimalleolar capsule by [facility] 300 mg 00:00: 00:00 fracture of mouth 3 capsule 00 :00 left ankle, times initial daily for encounter 30 days gabapentin 2022-0 2022- No Closed 300mg Take 1 [facility] (NEURONTIN) 05-07 bimalleolar capsule by [facility] 300 mg 00:00: 00:00 fracture of mouth 3 capsule 00 :00 left ankle, times initial daily for encounter 30 days gabapentin 2021- No Closed 300mg Take 1 [facility] (NEURONTIN) 05-07 bimalleolar capsule by [facility] 300 mg 00:00: 00:00 fracture of mouth 3 capsule 00 :00 left ankle, times initial daily for encounter 30 days gabapentin 2021- No Closed 300mg Take 1 [facility] (NEURONTIN) 05-07 bimalleolar capsule by [facility] 300 mg 00:00: 00:00 fracture of mouth 3 capsule 00 :00 left ankle, times initial daily for encounter 30 days gabapentin 2021- No Closed 300mg Take 1 [facility] (NEURONTIN) 05-07 bimalleolar capsule by [facility] 300 mg 00:00: 00:00 fracture of mouth 3 capsule 00 :00 left ankle, times initial daily for encounter 30 days gabapentin 2021- No Closed 300mg Take 1 [facility] (NEURONTIN) 05-07 bimalleolar capsule by [facility] 300 mg 00:00: 00:00 fracture of mouth 3 capsule 00 :00 left ankle, times initial daily for encounter 30 days gabapentin 2021- No Closed 300mg Take 1 [facility] (NEURONTIN) 05-07 bimalleolar capsule by [facility] 300 mg 00:00: 00:00 fracture of mouth 3 capsule 00 :00 left ankle, times initial daily for encounter 30 days gabapentin 2021- No Closed 300mg Take 1 [facility] (NEURONTIN) 05-07 bimalleolar capsule by [facility] 300 mg 00:00: 00:00 fracture of mouth 3 capsule 00 :00 left ankle, times initial daily for encounter 30 days gabapentin 2021- No Closed 300mg Take 1 [facility] (NEURONTIN) 05-07 bimalleolar capsule by [facility] 300 mg 00:00: 00:00 fracture of mouth 3 capsule 00 :00 left ankle, times initial daily for encounter 30 days gabapentin 2021- No Closed 300mg Take 1 [facility] (NEURONTIN) 05-07 bimalleolar capsule by [facility] 300 mg 00:00: 00:00 fracture of mouth 3 capsule 00 :00 left ankle, times initial daily for encounter 30 days gabapentin 2021- No Closed 300mg Take 1 [facility] (NEURONTIN) 05-07 bimalleolar capsule by [facility] 300 mg 00:00: 00:00 fracture of mouth 3 capsule 00 :00 left ankle, times initial daily for encounter 30 days gabapentin 2021- No Closed 300mg Take 1 [facility] (NEURONTIN) 05-07 bimalleolar capsule by [facility] 300 mg 00:00: 00:00 fracture of mouth 3 capsule 00 :00 left ankle, times initial daily for encounter 30 days gabapentin 2021- No Closed 300mg Take 1 [facility] (NEURONTIN) 05-07 bimalleolar capsule by [facility] 300 mg 00:00: 00:00 fracture of mouth 3 capsule 00 :00 left ankle, times initial daily for encounter 30 days gabapentin 2021- No Closed 300mg Take 1 [facility] (NEURONTIN) 05-07 bimalleolar capsule by [facility] 300 mg 00:00: 00:00 fracture of mouth 3 capsule 00 :00 left ankle, times initial daily for encounter 30 days HYDROcodone 2021- No Closed 1{tbl} Take 1 [facility] -acetaminop 05-07 bimalleolar tablet by [facility]) 00:00: 00:00 fracture of mouth 10-325 mg 00 :00 left ankle every 6 tablet with hours as malunion needed for Pain HYDROcodone 2021- No Closed 1{tbl} Take 1 [facility] -acetaminop 05-07 bimalleolar tablet by [facility]) 00:00: 00:00 fracture of mouth 10-325 mg 00 :00 left ankle every 6 tablet with hours as malunion needed for Pain HYDROcodone 2021- No Closed 1{tbl} Take 1 [facility] -acetaminop 05-07 bimalleolar tablet by [facility]) 00:00: 00:00 fracture of mouth 10-325 mg 00 :00 left ankle every 6 tablet with hours as malunion needed for Pain HYDROcodone 2- No Closed 1{tbl} Take 1 [facility] -acetaminop 9-16 09-23 bimalleolar tablet by [facility] (PLANO) 00:00: 00:00 fracture of mouth 10-325 mg 00 :00 left ankle every 6 tablet with hours as malunion needed for Pain HYDROcodone 2021-0 2021- No Closed 1{tbl} Take 1 [facility] -acetaminop 9-16 09-23 bimalleolar tablet by [facility] (PLANO) 00:00: 00:00 fracture of mouth 10-325 mg 00 :00 left ankle every 6 tablet with hours as malunion needed for Pain HYDROcodone 2021-0 2021- No Closed 1{tbl} Take 1 [facility] -acetaminop 9-16 09-23 bimalleolar tablet by [facility] (PLANO) 00:00: 00:00 fracture of mouth 10-325 mg 00 :00 left ankle every 6 tablet with hours as malunion needed for Pain HYDROcodone 2021-0 2021- No Closed 1{tbl} Take 1 [facility] -acetaminop 9-16 09-23 bimalleolar tablet by [facility] (PLANO) 00:00: 00:00 fracture of mouth 10-325 mg 00 :00 left ankle every 6 tablet with hours as malunion needed for Pain HYDROcodone 2021-0 2021- No Closed 1{tbl} Take 1 [facility] -acetaminop 9-16 09-23 bimalleolar tablet by [facility] (PLANO) 00:00: 00:00 fracture of mouth 10-325 mg 00 :00 left ankle every 6 tablet with hours as malunion needed for Pain HYDROcodone 2021-0 2021- No Closed 1{tbl} Take 1 [facility] -acetaminop 9-16 09-23 bimalleolar tablet by [facility] (PLANO) 00:00: 00:00 fracture of mouth 10-325 mg 00 :00 left ankle every 6 tablet with hours as malunion needed for Pain HYDROcodone 2021-0 2021- No Closed 1{tbl} Take 1 [facility] -acetaminop 9-16 09-23 bimalleolar tablet by [facility] (PLANO) 00:00: 00:00 fracture of mouth 10-325 mg 00 :00 left ankle every 6 tablet with hours as malunion needed for Pain HYDROcodone 2022-0 2021- No Closed 1{tbl} Take 1 [facility] -acetaminop 9-16 09-23 bimalleolar tablet by [facility] (PLANO) 00:00: 00:00 fracture of mouth 10-325 mg 00 :00 left ankle every 6 tablet with hours as malunion needed for Pain HYDROcodone 2021-0 2021- No Closed 1{tbl} Take 1 [facility] -acetaminop 9-16 09-23 bimalleolar tablet by [facility] (PLANO) 00:00: 00:00 fracture of mouth 10-325 mg 00 :00 left ankle every 6 tablet with hours as malunion needed for Pain HYDROcodone 2021- No Closed 1{tbl} Take 1 [facility] -acetaminop 9-16 09-23 bimalleolar tablet by [facility] (PLANO) 00:00: 00:00 fracture of mouth 10-325 mg 00 :00 left ankle every 6 tablet with hours as malunion needed for Pain HYDROcodone 2021- No Closed 1{tbl} Take 1 [facility] -acetaminop 9-16 09-23 bimalleolar tablet by [facility] (PLANO) 00:00: 00:00 fracture of mouth 10-325 mg 00 :00 left ankle every 6 tablet with hours as malunion needed for Pain HYDROcodone 2021-0 2021- No Closed 1{tbl} Take 1 [facility] -acetaminop 9-16 09-23 bimalleolar tablet by [facility] (PLANO) 00:00: 00:00 fracture of mouth 10-325 mg 00 :00 left ankle every 6 tablet with hours as malunion needed for Pain HYDROcodone 2021-0 2021- No Closed 1{tbl} Take 1 [facility] -acetaminop 9-16 09-23 bimalleolar tablet by [facility] (PLANO) 00:00: 00:00 fracture of mouth 10-325 mg 00 :00 left ankle every 6 tablet with hours as malunion needed for Pain HYDROcodone 2021-0 2021- No Closed 1{tbl} Take 1 [facility] -acetaminop 9-16 09-23 bimalleolar tablet by [facility] (PLANO) 00:00: 00:00 fracture of mouth 10-325 mg 00 :00 left ankle every 6 tablet with hours as malunion needed for Pain HYDROcodone 2021-0 2021- No Closed 1{tbl} Take 1 [facility] -acetaminop 9-16 09-23 bimalleolar tablet by [facility] (PLANO) 00:00: 00:00 fracture of mouth 10-325 mg 00 :00 left ankle every 6 tablet with hours as malunion needed for Pain HYDROcodone 2021-0 2021- No Closed 1{tbl} Take 1 [facility] -acetaminop 9-16 09-23 bimalleolar tablet by [facility] (PLANO) 00:00: 00:00 fracture of mouth 10-325 mg 00 :00 left ankle every 6 tablet with hours as malunion needed for Pain HYDROcodone 2021-0 2021- No Closed 1{tbl} Take 1 [facility] -acetaminop 9-16 09-23 bimalleolar tablet by [facility] (PLANO) 00:00: 00:00 fracture of mouth 10-325 mg 00 :00 left ankle every 6 tablet with hours as malunion needed for Pain HYDROcodone 2021-0 2021- No Closed 1{tbl} Take 1 [facility] -acetaminop 9-16 09-23 bimalleolar tablet by [facility] (PLANO) 00:00: 00:00 fracture of mouth 10-325 mg 00 :00 left ankle every 6 tablet with hours as malunion needed for Pain HYDROcodone 2021-0 2021- No Closed 1{tbl} Take 1 [facility] -acetaminop 9-16 09-23 bimalleolar tablet by [facility] (PLANO) 00:00: 00:00 fracture of mouth 10-325 mg 00 :00 left ankle every 6 tablet with hours as malunion needed for Pain HYDROcodone 2021-0 2021- No Closed 1{tbl} Take 1 [facility] -acetaminop 9-16 09-23 bimalleolar tablet by [facility] (PLANO) 00:00: 00:00 fracture of mouth 10-325 mg 00 :00 left ankle every 6 tablet with hours as malunion needed for Pain HYDROcodone 2021-0 2021- No Closed 1{tbl} Take 1 [facility] -acetaminop 9-16 09-23 bimalleolar tablet by [facility] (PLANO) 00:00: 00:00 fracture of mouth 10-325 mg 00 :00 left ankle every 6 tablet with hours as malunion needed for Pain HYDROcodone 2021-0 2- No Closed 1{tbl} Take 1 [facility] -acetaminop 9-16 09-23 bimalleolar tablet by [facility] (PLANO) 00:00: 00:00 fracture of mouth 10-325 mg 00 :00 left ankle every 6 tablet with hours as malunion needed for Pain HYDROcodone 2021-0 2021- No Closed 1{tbl} Take 1 [facility] -acetaminop 9-16 09-23 bimalleolar tablet by [facility] (PLANO) 00:00: 00:00 fracture of mouth 10-325 mg 00 :00 left ankle every 6 tablet with hours as malunion needed for Pain HYDROcodone 2021-0 2021- No Closed 1{tbl} Take 1 [facility] -acetaminop 9-16 09-23 bimalleolar tablet by [facility] (PLANO) 00:00: 00:00 fracture of mouth 10-325 mg 00 :00 left ankle every 6 tablet with hours as malunion needed for Pain HYDROcodone 2021-0 2021- No Closed 1{tbl} Take 1 [facility] -acetaminop 9-16 09-23 bimalleolar tablet by [facility] (PLANO) 00:00: 00:00 fracture of mouth 10-325 mg 00 :00 left ankle every 6 tablet with hours as malunion needed for Pain HYDROcodone 2021-0 2- No Closed 1{tbl} Take 1 [facility] -acetaminop 9-16 09-23 bimalleolar tablet by [facility] (PLANO) 00:00: 00:00 fracture of mouth 10-325 mg 00 :00 left ankle every 6 tablet with hours as malunion needed for Pain HYDROcodone 2021-0 2021- No Closed 1{tbl} Take 1 [facility] -acetaminop 9-16 09-23 bimalleolar tablet by [facility] (PLANO) 00:00: 00:00 fracture of mouth 10-325 mg 00 :00 left ankle every 6 tablet with hours as malunion needed for Pain HYDROcodone 2021-0 2- No Closed 1{tbl} Take 1 [facility] -acetaminop 9-16 09-23 bimalleolar tablet by [facility] (PLANO) 00:00: 00:00 fracture of mouth 10-325 mg 00 :00 left ankle every 6 tablet with hours as malunion needed for Pain HYDROcodone 2021-0 2021- No Closed 1{tbl} Take 1 [facility] -acetaminop 9-16 09-23 bimalleolar tablet by [facility] (PLANO) 00:00: 00:00 fracture of mouth 10-325 mg 00 :00 left ankle every 6 tablet with hours as malunion needed for Pain HYDROcodone 2021-0 2021- No Closed 1{tbl} Take 1 [facility] -acetaminop 9-16 09-23 bimalleolar tablet by [facility] (PLANO) 00:00: 00:00 fracture of mouth 10-325 mg 00 :00 left ankle every 6 tablet with hours as malunion needed for Pain HYDROcodone 2021-0 2021- No Closed 1{tbl} Take 1 [facility] -acetaminop 9-16 09-23 bimalleolar tablet by [facility] (PLANO) 00:00: 00:00 fracture of mouth 10-325 mg 00 :00 left ankle every 6 tablet with hours as malunion needed for Pain HYDROcodone 2021-0 2021- No Closed 1{tbl} Take 1 [facility] -acetaminop 9-16 09-23 bimalleolar tablet by [facility] (PLANO) 00:00: 00:00 fracture of mouth 10-325 mg 00 :00 left ankle every 6 tablet with hours as malunion needed for Pain HYDROcodone 2021-0 2- No Closed 1{tbl} Take 1 [facility] -acetaminop 9-16 09-23 bimalleolar tablet by [facility] (PLANO) 00:00: 00:00 fracture of mouth 10-325 mg 00 :00 left ankle every 6 tablet with hours as malunion needed for Pain HYDROcodone 2021-0 2021- No Closed 1{tbl} Take 1 [facility] -acetaminop 9-09 09-16 bimalleolar tablet by [facility] (PLANO) 00:00: 00:00 fracture of mouth 5-325 mg 00 :00 left ankle every 6 tablet with hours as routine needed for healing, Pain subsequent encounter HYDROcodone 2021-2021- No Closed 1{tbl} Take 1 [facility] -acetaminop 9-09 09-16 bimalleolar tablet by [facility] (PLANO) 00:00: 00:00 fracture of mouth 5-325 mg 00 :00 left ankle every 6 tablet with hours as routine needed for healing, Pain subsequent encounter HYDROcodone 2021- No Closed 1{tbl} Take 1 [facility] -acetaminop 9-05-07 bimalleolar tablet by [facility] (PLANO) 00:00: 00:00 fracture of mouth 5-325 mg 00 :00 left ankle every 6 tablet with hours as routine needed for healing, Pain subsequent encounter HYDROcodone 2021- No Closed 1{tbl} Take 1 [facility] -acetaminop 9-05-07 bimalleolar tablet by [facility] (PLANO) 00:00: 00:00 fracture of mouth 5-325 mg 00 :00 left ankle every 6 tablet with hours as routine needed for healing, Pain subsequent encounter HYDROcodone 2021- No Closed 1{tbl} Take 1 [facility] -acetaminop -05-07 bimalleolar tablet by [facility] (PLANO) 00:00: 00:00 fracture of mouth 5-325 mg 00 :00 left ankle every 6 tablet with hours as routine needed for healing, Pain subsequent encounter HYDROcodone 2021- No Closed 1{tbl} Take 1 [facility] -acetaminop -05-07 bimalleolar tablet by [facility] (PLANO) 00:00: 00:00 fracture of mouth 5-325 mg 00 :00 left ankle every 6 tablet with hours as routine needed for healing, Pain subsequent encounter HYDROcodone 2021- No Closed 1{tbl} Take 1 [facility] -acetaminop -05-07 bimalleolar tablet by [facility] (PLANO) 00:00: 00:00 fracture of mouth 5-325 mg 00 :00 left ankle every 6 tablet with hours as routine needed for healing, Pain subsequent encounter HYDROcodone 2021- No Closed 1{tbl} Take 1 [facility] -acetaminop -05-07 bimalleolar tablet by [facility] (PLANO) 00:00: 00:00 fracture of mouth 5-325 mg 00 :00 left ankle every 6 tablet with hours as routine needed for healing, Pain subsequent encounter HYDROcodone 2021- No Closed 1{tbl} Take 1 [facility] -acetaminop 04-30 bimalleolar tablet by [facility] (PLANO) 00:00: 00:00 fracture of mouth 5-325 mg 00 :00 left ankle every 6 tablet with hours as routine needed for healing, Pain subsequent encounter HYDROcodone 2021- No Closed 1{tbl} Take 1 [facility] -acetaminop 9-05-07 bimalleolar tablet by [facility] (PLANO) 00:00: 00:00 fracture of mouth 5-325 mg 00 :00 left ankle every 6 tablet with hours as routine needed for healing, Pain subsequent encounter HYDROcodone 2021- No Closed 1{tbl} Take 1 [facility] -acetaminop -05-07 bimalleolar tablet by [facility] (PLANO) 00:00: 00:00 fracture of mouth 5-325 mg 00 :00 left ankle every 6 tablet with hours as routine needed for healing, Pain subsequent encounter HYDROcodone 2021- No Closed 1{tbl} Take 1 [facility] -acetaminop -05-07 bimalleolar tablet by [facility] (PLANO) 00:00: 00:00 fracture of mouth 5-325 mg 00 :00 left ankle every 6 tablet with hours as routine needed for healing, Pain subsequent encounter HYDROcodone 2021- No Closed 1{tbl} Take 1 [facility] -acetaminop -05-07 bimalleolar tablet by [facility] (PLANO) 00:00: 00:00 fracture of mouth 5-325 mg 00 :00 left ankle every 6 tablet with hours as routine needed for healing, Pain subsequent encounter HYDROcodone 2021- No Closed 1{tbl} Take 1 [facility] -acetaminop 04-30 bimalleolar tablet by [facility] (PLANO) 00:00: 00:00 fracture of mouth 5-325 mg 00 :00 left ankle every 6 tablet with hours as routine needed for healing, Pain subsequent encounter HYDROcodone 2021- No Closed 1{tbl} Take 1 [facility] -acetaminop 04-30 bimalleolar tablet by [facility] (PLANO) 00:00: 00:00 fracture of mouth 5-325 mg 00 :00 left ankle every 6 tablet with hours as routine needed for healing, Pain subsequent encounter HYDROcodone 2021- No Closed 1{tbl} Take 1 [facility] -acetaminop 04-30 bimalleolar tablet by [facility] (Nurigene) 00:00: 00:00 fracture of mouth 5-325 mg 00 :00 left ankle every 6 tablet with hours as routine needed for healing, Pain subsequent encounter HYDROcodone 2021- No Closed 1{tbl} Take 1 [facility] -acetaminop 04-3016 bimalleolar tablet by [facility] (Nurigene) 00:00: 00:00 fracture of mouth 5-325 mg 00 :00 left ankle every 6 tablet with hours as routine needed for healing, Pain subsequent encounter HYDROcodone 2021- No Closed 1{tbl} Take 1 [facility] -acetaminop 04-30 bimalleolar tablet by [facility] (Nurigene) 00:00: 00:00 fracture of mouth 5-325 mg 00 :00 left ankle every 6 tablet with hours as routine needed for healing, Pain subsequent encounter naloxone Yes Closed Give 1 [facility] (NARCAN) 4 04-29 bimalleolar dose of Health mg/actuatio 00:00: fracture of naloxone n nasal 00 left ankle in either spray with nostril at routine first sign healing, of opioid subsequent overdose encounter and then immediatel y seek emergency medical assistance . If patient unresponsi ve and or breathing abnormally 2-3 minutes after 1st dose, give 2nd dose in other nostril naloxone Yes Closed Give 1 [facility] (NARCAN) 4 - bimalleolar dose of Health mg/actuatio 00:00: fracture of naloxone n nasal 00 left ankle in either spray with nostril at routine first sign healing, of opioid subsequent overdose encounter and then immediatel y seek emergency medical assistance . If patient unresponsi ve and or breathing abnormally 2-3 minutes after 1st dose, give 2nd dose in other nostril naloxone 2021-0 Yes Closed Give 1 [facility] (NARCAN) 4 - bimalleolar dose of Health mg/actuatio 00:00: fracture of naloxone n nasal 00 left ankle in either spray with nostril at routine first sign healing, of opioid subsequent overdose encounter and then immediatel y seek emergency medical assistance . If patient unresponsi ve and or breathing abnormally 2-3 minutes after 1st dose, give 2nd dose in other nostril naloxone 2022-0 Yes Closed Give 1 [facility] (NARCAN) 4 9- bimalleolar dose of Health mg/actuatio 00:00: fracture of naloxone n nasal 00 left ankle in either spray with nostril at routine first sign healing, of opioid subsequent overdose encounter and then immediatel y seek emergency medical assistance . If patient unresponsi ve and or breathing abnormally 2-3 minutes after 1st dose, give 2nd dose in other nostril HYDROcodone Yes Closed 1{tbl} Take 1 [facility] -acetaminop 04-29 bimalleolar tablet by [facility] 00:00: fracture mouth 5-325 mg 00 with every 6 tablet routine hours as healing, needed for unspecified Pain laterality, subsequent encounter naloxone Yes Closed Give 1 [facility] (NARCAN) 4 - bimalleolar dose of Health mg/actuatio 00:00: fracture of naloxone n nasal 00 left ankle in either spray with nostril at routine first sign healing, of opioid subsequent overdose encounter and then immediatel y seek emergency medical assistance . If patient unresponsi ve and or breathing abnormally 2-3 minutes after 1st dose, give 2nd dose in other nostril naloxone Yes Closed Give 1 [facility] (NARCAN) 4 - bimalleolar dose of Health mg/actuatio 00:00: fracture of naloxone n nasal 00 left ankle in either spray with nostril at routine first sign healing, of opioid subsequent overdose encounter and then immediatel y seek emergency medical assistance . If patient unresponsi ve and or breathing abnormally 2-3 minutes after 1st dose, give 2nd dose in other nostril naloxone Yes Closed Give 1 [facility] (NARCAN) 4 - bimalleolar dose of Health mg/actuatio 00:00: fracture of naloxone n nasal 00 left ankle in either spray with nostril at routine first sign healing, of opioid subsequent overdose encounter and then immediatel y seek emergency medical assistance . If patient unresponsi ve and or breathing abnormally 2-3 minutes after 1st dose, give 2nd dose in other nostril naloxone Yes Closed Give 1 [facility] (NARCAN) 4 9- bimalleolar dose of Health mg/actuatio 00:00: fracture of naloxone n nasal 00 left ankle in either spray with nostril at routine first sign healing, of opioid subsequent overdose encounter and then immediatel y seek emergency medical assistance . If patient unresponsi ve and or breathing abnormally 2-3 minutes after 1st dose, give 2nd dose in other nostril naloxone Yes Closed Give 1 [facility] (NARCAN) 4 04-29 bimalleolar dose of Health mg/actuatio 00:00: fracture of naloxone n nasal 00 left ankle in either spray with nostril at routine first sign healing, of opioid subsequent overdose encounter and then immediatel y seek emergency medical assistance . If patient unresponsi ve and or breathing abnormally 2-3 minutes after 1st dose, give 2nd dose in other nostril naloxone Yes Closed Give 1 [facility] (NARCAN) 4 04-29 bimalleolar dose of Health mg/actuatio 00:00: fracture of naloxone n nasal 00 left ankle in either spray with nostril at routine first sign healing, of opioid subsequent overdose encounter and then immediatel y seek emergency medical assistance . If patient unresponsi ve and or breathing abnormally 2-3 minutes after 1st dose, give 2nd dose in other nostril naloxone Yes Closed Give 1 [facility] (NARCAN) 4 04-29 bimalleolar dose of Health mg/actuatio 00:00: fracture of naloxone n nasal 00 left ankle in either spray with nostril at routine first sign healing, of opioid subsequent overdose encounter and then immediatel y seek emergency medical assistance . If patient unresponsi ve and or breathing abnormally 2-3 minutes after 1st dose, give 2nd dose in other nostril naloxone Yes Closed Give 1 [facility] (NARCAN) 4 04-29 bimalleolar dose of Health mg/actuatio 00:00: fracture of naloxone n nasal 00 left ankle in either spray with nostril at routine first sign healing, of opioid subsequent overdose encounter and then immediatel y seek emergency medical assistance . If patient unresponsi ve and or breathing abnormally 2-3 minutes after 1st dose, give 2nd dose in other nostril naloxone Yes Closed Give 1 Harri s (NARCAN) 4 04-29 bimalleolar dose of Health mg/actuatio 00:00: fracture of naloxone n nasal 00 left ankle in either spray with nostril at routine first sign healing, of opioid subsequent overdose encounter and then immediatel y seek emergency medical assistance . If patient unresponsi ve and or breathing abnormally 2-3 minutes after 1st dose, give 2nd dose in other nostril naloxone Yes Closed Give 1 [facility]ri [facility] (NARCAN) 4 04-29 bimalleolar dose of Health mg/actuatio 00:00: fracture of naloxone n nasal 00 left ankle in either spray with nostril at routine first sign healing, of opioid subsequent overdose encounter and then immediatel y seek emergency medical assistance . If patient unresponsi ve and or breathing abnormally 2-3 minutes after 1st dose, give 2nd dose in other nostril naloxone Yes Closed Give 1 [facility]ri [facility] (NARCAN) 4 04-29 bimalleolar dose of Health mg/actuatio 00:00: fracture of naloxone n nasal 00 left ankle in either spray with nostril at routine first sign healing, of opioid subsequent overdose encounter and then immediatel y seek emergency medical assistance . If patient unresponsi ve and or breathing abnormally 2-3 minutes after 1st dose, give 2nd dose in other nostril naloxone Yes Closed Give 1 [facility] (NARCAN) 4 04-29 bimalleolar dose of Health mg/actuatio 00:00: fracture of naloxone n nasal 00 left ankle in either spray with nostril at routine first sign healing, of opioid subsequent overdose encounter and then immediatel y seek emergency medical assistance . If patient unresponsi ve and or breathing abnormally 2-3 minutes after 1st dose, give 2nd dose in other nostril naloxone Yes Closed Give 1 [facility] (NARCAN) 4 04-29 bimalleolar dose of Health mg/actuatio 00:00: fracture of naloxone n nasal 00 left ankle in either spray with nostril at routine first sign healing, of opioid subsequent overdose encounter and then immediatel y seek emergency medical assistance . If patient unresponsi ve and or breathing abnormally 2-3 minutes after 1st dose, give 2nd dose in other nostril naloxone Yes Closed Give 1 [facility] (NARCAN) 4 04-29 bimalleolar dose of Health mg/actuatio 00:00: fracture of naloxone n nasal 00 left ankle in either spray with nostril at routine first sign healing, of opioid subsequent overdose encounter and then immediatel y seek emergency medical assistance . If patient unresponsi ve and or breathing abnormally 2-3 minutes after 1st dose, give 2nd dose in other nostril naloxone Yes Closed Give 1 Harri [facility] (NARCAN) 4 9-08 bimalleolar dose of Health mg/actuatio 00:00: fracture of naloxone n nasal 00 left ankle in either spray with nostril at routine first sign healing, of opioid subsequent overdose encounter and then immediatel y seek emergency medical assistance . If patient unresponsi ve and or breathing abnormally 2-3 minutes after 1st dose, give 2nd dose in other nostril HYDROcodone 2021- No Closed 1{tbl} Take 1 [facility] -acetaminop -03 30- bimalleolar tablet by [facility]) 00:00: 00:00 fracture mouth 5-325 mg 00 :00 with every 6 tablet routine hours as healing, needed for unspecified Pain laterality, subsequent encounter HYDROcodone 2021- No Closed 1{tbl} Take 1 [facility] -acetaminop -04-30 bimalleolar tablet by [facility]) 00:00: 00:00 fracture mouth 5-325 mg 00 :00 with every 6 tablet routine hours as healing, needed for unspecified Pain laterality, subsequent encounter HYDROcodone 2021- No Closed 1{tbl} Take 1 [facility] -acetaminop -03 30- bimalleolar tablet by [facility] ([facility]) 00:00: 00:00 fracture mouth 5-325 mg 00 :00 with every 6 tablet routine hours as healing, needed for unspecified Pain laterality, subsequent encounter HYDROcodone 2021- No Closed 1{tbl} Take 1 [facility] -acetaminop 04-29 bimalleolar tablet by [facility]) 00:00: 00:00 fracture mouth 5-325 mg 00 :00 with every 6 tablet routine hours as healing, needed for unspecified Pain laterality, subsequent encounter HYDROcodone 2021- No Closed 1{tbl} Take 1 [facility] -acetaminop -04-30 bimalleolar tablet by [facility]) 00:00: 00:00 fracture mouth 5-325 mg 00 :00 with every 6 tablet routine hours as healing, needed for unspecified Pain laterality, subsequent encounter HYDROcodone 2022-0 2022- No Closed 1{tbl} Take 1 [facility] -acetaminop -03 30- [facility] 00:[facility]: 00:00 fracture mouth 5-325 mg 00 :00 with every 6 tablet routine hours as healing, needed for unspecified Pain laterality, subsequent encounter HYDROcodone 2021- No Closed 1{tbl} Take 1 [facility] -acetaminop -03 30- bimalleolar tablet by [facility] ([facility]) 00:00: 00:00 fracture mouth 5-325 mg 00 :00 with every 6 tablet routine hours as healing, needed for unspecified Pain laterality, subsequent encounter HYDROcodone 2021- No Closed 1{tbl} Take 1 [facility] -acetaminop -03 30- bimalleolar tablet by [facility] ([facility]) 00:00: 00:00 fracture mouth 5-325 mg 00 :00 with every 6 tablet routine hours as healing, needed for unspecified Pain laterality, subsequent encounter HYDROcodone 2021- No Closed 1{tbl} Take 1 [facility] -acetaminop -03 30- bimalleolar tablet by [facility] ([facility]) 00:00: 00:00 fracture mouth 5-325 mg 00 :00 with every 6 tablet routine hours as healing, needed for unspecified Pain laterality, subsequent encounter HYDROcodone 2021- No Closed 1{tbl} Take 1 [facility] -acetaminop -03 30- bimalleolar tablet by [facility] ([facility]) 00:00: 00:00 fracture mouth 5-325 mg 00 :00 with every 6 tablet routine hours as healing, needed for unspecified Pain laterality, subsequent encounter HYDROcodone 2021- No Closed 1{tbl} Take 1 [facility] -acetaminop -03 30- [facility] 00:[facility]: 00:00 fracture mouth 5-325 mg 00 :00 with every 6 tablet routine hours as healing, needed for unspecified Pain laterality, subsequent encounter HYDROcodone 2021- No Closed 1{tbl} Take 1 [facility] -acetaminop -03 30- bimalleolar tablet by [facility]) 00:00: 00:00 fracture mouth 5-325 mg 00 :00 with every 6 tablet routine hours as healing, needed for unspecified Pain laterality, subsequent encounter HYDROcodone 0 2021- No Closed 1{tbl} Take 1 [facility] -acetaminop -03 30- bimalleolar tablet by [facility] ([facility]) 00:00: 00:00 fracture mouth 5-325 mg 00 :00 with every 6 tablet routine hours as healing, needed for unspecified Pain laterality, subsequent encounter HYDROcodone 2021- No Closed 1{tbl} Take 1 [facility] -acetaminop -03 30- bimalleolar tablet by [facility] ([facility]) 00:00: 00:00 fracture mouth 5-325 mg 00 :00 with every 6 tablet routine hours as healing, needed for unspecified Pain laterality, subsequent encounter HYDROcodone 2021- No Closed 1{tbl} Take 1 [facility] -acetaminop -04-30 bimalleolar tablet by [facility] ([facility]) 00:00: 00:00 fracture mouth 5-325 mg 00 :00 with every 6 tablet routine hours as healing, needed for unspecified Pain laterality, subsequent encounter HYDROcodone 2021- No Closed 1{tbl} Take 1 [facility] -acetaminop -03 30- bimalleolar tablet by [facility] ([facility]) 00:00: 00:00 fracture mouth 5-325 mg 00 :00 with every 6 tablet routine hours as healing, needed for unspecified Pain laterality, subsequent encounter HYDROcodone 2021- No Closed 1{tbl} Take 1 [facility] -acetaminop -04-30 bimalleolar tablet by [facility]) 00:00: 00:00 fracture mouth 5-325 mg 00 :00 with every 6 tablet routine hours as healing, needed for unspecified Pain laterality, subsequent encounter HYDROcodone 2021- No Closed 1{tbl} Take 1 [facility] -acetaminop -03 30- bimalleolar tablet by [facility] ([facility]) 00:00: 00:00 fracture mouth 5-325 mg 00 :00 with every 6 tablet routine hours as healing, needed for unspecified Pain laterality, subsequent encounter HYDROcodone 2021- No Closed 1{tbl} Take 1 [facility] -acetaminop -10 28- bimalleolar tablet by [facility]) 00:00: 00:00 fracture mouth 5-325 mg 00 :00 with every 6 tablet routine hours as healing, needed for unspecified Pain laterality, subsequent encounter HYDROcodone 2021- No Closed 1{tbl} Take 1 [facility] -acetaminop 9-03 09-08 bimalleolar tablet by [facility]) 00:00: 00:00 fracture mouth 5-325 mg 00 :00 with every 6 tablet routine hours as healing, needed for unspecified Pain laterality, subsequent encounter HYDROcodone 2021- No Closed 1{tbl} Take 1 [facility] -acetaminop 9-03 09-08 bimalleolar tablet by [facility]) 00:00: 00:00 fracture mouth 5-325 mg 00 :00 with every 6 tablet routine hours as healing, needed for unspecified Pain laterality, subsequent encounter HYDROcodone 2021- No Closed 1{tbl} Take 1 [facility] -acetaminop 9-03 09-08 bimalleolar tablet by [facility]) 00:00: 00:00 fracture mouth 5-325 mg 00 :00 with every 6 tablet routine hours as healing, needed for unspecified Pain laterality, subsequent encounter HYDROcodone 2021- No Closed 1{tbl} Take 1 [facility] -acetaminop 9-03 09-08 bimalleolar tablet by [facility] ([facility]) 00:00: 00:00 fracture mouth 5-325 mg 00 :00 with every 6 tablet routine hours as healing, needed for unspecified Pain laterality, subsequent encounter HYDROcodone 2021- No Closed 1{tbl} Take 1 [facility] -acetaminop 9-03 09-08 bimalleolar tablet by [facility]) 00:00: 00:00 fracture mouth 5-325 mg 00 :00 with every 6 tablet routine hours as healing, needed for unspecified Pain laterality, subsequent encounter HYDROcodone 2021- No Closed 1{tbl} Take 1 [facility] -acetaminop 9-03 09-08 bimalleolar tablet by [facility]) 00:00: 00:00 fracture mouth 5-325 mg 00 :00 with every 6 tablet routine hours as healing, needed for unspecified Pain laterality, subsequent encounter HYDROcodone 2022-0 2022- No Closed 1{tbl} Take 1 [facility] -acetaminop 9-03 09-08 [facility] tablet [facility] 00:[facility]: 00:00 fracture mouth 5-325 mg 00 :00 with every 6 tablet routine hours as healing, needed for unspecified Pain laterality, subsequent encounter HYDROcodone 2021- No Closed 1{tbl} Take 1 [facility] -acetaminop 9-03 09-08 bimalleolar tablet by [facility] ([facility]) 00:00: 00:00 fracture mouth 5-325 mg 00 :00 with every 6 tablet routine hours as healing, needed for unspecified Pain laterality, subsequent encounter HYDROcodone 2021- No Closed 1{tbl} Take 1 [facility] -acetaminop 9-03 09-08 bimalleolar tablet by [facility] ([facility]) 00:00: 00:00 fracture mouth 5-325 mg 00 :00 with every 6 tablet routine hours as healing, needed for unspecified Pain laterality, subsequent encounter HYDROcodone 2021- No Closed 1{tbl} Take 1 [facility] -acetaminop 9-03 09-08 bimalleolar tablet by [facility] ([facility]) 00:00: 00:00 fracture mouth 5-325 mg 00 :00 with every 6 tablet routine hours as healing, needed for unspecified Pain laterality, subsequent encounter HYDROcodone 2021- No Closed 1{tbl} Take 1 [facility] -acetaminop 9-03 09-08 bimalleolar tablet by [facility] ([facility]) 00:00: 00:00 fracture mouth 5-325 mg 00 :00 with every 6 tablet routine hours as healing, needed for unspecified Pain laterality, subsequent encounter HYDROcodone 2021- No Closed 1{tbl} Take 1 [facility] -acetaminop 9-03 09-08 [facility]olar tablet [facility] 00:00: 00:00 fracture mouth 5-325 mg 00 :00 with every 6 tablet routine hours as healing, needed for unspecified Pain laterality, subsequent encounter HYDROcodone 2021- No Closed 1{tbl} Take 1 [facility] -acetaminop 9-03 09-08 [facility]olar tablet by [facility]) 00:00: 00:00 fracture mouth 5-325 mg 00 :00 with every 6 tablet routine hours as healing, needed for unspecified Pain laterality, subsequent encounter HYDROcodone 2021- No Closed 1{tbl} Take 1 [facility] -acetaminop 9-03 09-08 bimalleolar tablet by [facility] ([facility]) 00:00: 00:00 fracture mouth 5-325 mg 00 :00 with every 6 tablet routine hours as healing, needed for unspecified Pain laterality, subsequent encounter HYDROcodone 2021- No Closed 1{tbl} Take 1 [facility] -acetaminop 9-03 09-08 bimalleolar tablet by [facility] ([facility]) 00:00: 00:00 fracture mouth 5-325 mg 00 :00 with every 6 tablet routine hours as healing, needed for unspecified Pain laterality, subsequent encounter HYDROcodone 2021- No Closed 1{tbl} Take 1 [facility] -acetaminop 9-03 09-08 bimalleolar tablet by [facility] ([facility]) 00:00: 00:00 fracture mouth 5-325 mg 00 :00 with every 6 tablet routine hours as healing, needed for unspecified Pain laterality, subsequent encounter HYDROcodone 2021- No Closed 1{tbl} Take 1 [facility] -acetaminop 9-03 09-08 bimalleolar tablet by [facility] ([facility]) 00:00: 00:00 fracture mouth 5-325 mg 00 :00 with every 6 tablet routine hours as healing, needed for unspecified Pain laterality, subsequent encounter HYDROcodone 2021- No Closed 1{tbl} Take 1 [facility] -acetaminop 9-03 09-08 bimalleolar tablet by [facility] ([facility]) 00:00: 00:00 fracture mouth 5-325 mg 00 :00 with every 6 tablet routine hours as healing, needed for unspecified Pain laterality, subsequent encounter HYDROcodone 2021- No Closed 1{tbl} Take 1 [facility] -acetaminop 9-03 09-03 bimalleolar tablet by [facility] ([facility]) 00:00: 00:00 fracture mouth 5-325 mg 00 :00 with every 6 tablet routine hours as healing, needed for unspecified up to 3 laterality, days for subsequent Pain encounter HYDROcodone 2021- No Closed 1{tbl} Take 1 [facility] -acetaminop 9-03 09-03 bimalleolar tablet by [facility]) 00:00: 00:00 fracture mouth 5-325 mg 00 :00 with every 6 tablet routine hours as healing, needed for unspecified up to 3 laterality, days for subsequent Pain encounter HYDROcodone 2021- No Closed 1{tbl} Take 1 [facility] -acetaminop 9- 09- bimalleolar tablet by [facility]) 00:00: 00:00 fracture mouth 5-325 mg 00 :00 with every 6 tablet routine hours as healing, needed for unspecified up to 3 laterality, days for subsequent Pain encounter HYDROcodone 2021- No Closed 1{tbl} Take 1 [facility] -acetaminop 9-03 09- bimalleolar tablet by [facility]) 00:00: 00:00 fracture mouth 5-325 mg 00 :00 with every 6 tablet routine hours as healing, needed for unspecified up to 3 laterality, days for subsequent Pain encounter HYDROcodone 2021- No Closed 1{tbl} Take 1 [facility] -acetaminop 9-10 28- bimalleolar tablet by [facility] ([facility]) 00:00: 00:00 fracture mouth 5-325 mg 00 :00 with every 6 tablet routine hours as healing, needed for unspecified up to 3 laterality, days for subsequent Pain encounter HYDROcodone 2021- No Closed 1{tbl} Take 1 [facility] -acetaminop 9-10 28- bimalleolar tablet by [facility]) 00:00: 00:00 fracture mouth 5-325 mg 00 :00 with every 6 tablet routine hours as healing, needed for unspecified up to 3 laterality, days for subsequent Pain encounter HYDROcodone 2021- No Closed 1{tbl} Take 1 [facility] -acetaminop 9-03 09-03 bimalleolar tablet by [facility]) 00:00: 00:00 fracture mouth 5-325 mg 00 :00 with every 6 tablet routine hours as healing, needed for unspecified up to 3 laterality, days for subsequent Pain encounter HYDROcodone 2021- No Closed 1{tbl} Take 1 [facility] -acetaminop 9-03 09-03 bimalleolar tablet by [facility]) 00:00: 00:00 fracture mouth 5-325 mg 00 :00 with every 6 tablet routine hours as healing, needed for unspecified up to 3 laterality, days for subsequent Pain encounter HYDROcodone 2021- No Closed 1{tbl} Take 1 [facility] -acetaminop 9-10 28- bimalleolar tablet by [facility] ([facility]) 00:00: 00:00 fracture mouth 5-325 mg 00 :00 with every 6 tablet routine hours as healing, needed for unspecified up to 3 laterality, days for subsequent Pain encounter HYDROcodone 2021- No Closed 1{tbl} Take 1 [facility] -acetaminop 9-10 28- bimalleolar tablet by [facility] ([facility]) 00:00: 00:00 fracture mouth 5-325 mg 00 :00 with every 6 tablet routine hours as healing, needed for unspecified up to 3 laterality, days for subsequent Pain encounter HYDROcodone 2021- No Closed 1{tbl} Take 1 [facility] -acetaminop 9-10 28- bimalleolar tablet by [facility] ([facility]) 00:00: 00:00 fracture mouth 5-325 mg 00 :00 with every 6 tablet routine hours as healing, needed for unspecified up to 3 laterality, days for subsequent Pain encounter HYDROcodone 2021- No Closed 1{tbl} Take 1 [facility] -acetaminop 9-10 28- bimalleolar tablet by [facility] ([facility]) 00:00: 00:00 fracture mouth 5-325 mg 00 :00 with every 6 tablet routine hours as healing, needed for unspecified up to 3 laterality, days for subsequent Pain encounter HYDROcodone 2021- No Closed 1{tbl} Take 1 [facility] -acetaminop 9-10 28- bimalleolar tablet by [facility]) 00:00: 00:00 fracture mouth 5-325 mg 00 :00 with every 6 tablet routine hours as healing, needed for unspecified up to 3 laterality, days for subsequent Pain encounter HYDROcodone 2021- No Closed 1{tbl} Take 1 [facility] -acetaminop 9-10 28- bimalleolar tablet by [facility] ([facility]) 00:00: 00:00 fracture mouth 5-325 mg 00 :00 with every 6 tablet routine hours as healing, needed for unspecified up to 3 laterality, days for subsequent Pain encounter HYDROcodone 2021-0 2021- No Closed 1{tbl} Take 1 [facility] -acetaminop 9-10 28- bimalleolar tablet by [facility]) 00:00: 00:00 fracture mouth 5-325 mg 00 :00 with every 6 tablet routine hours as healing, needed for unspecified up to 3 laterality, days for subsequent Pain encounter HYDROcodone 2021- No Closed 1{tbl} Take 1 [facility] -acetaminop 9-10 28- bimalleolar tablet by [facility]) 00:00: 00:00 fracture mouth 5-325 mg 00 :00 with every 6 tablet routine hours as healing, needed for unspecified up to 3 laterality, days for subsequent Pain encounter HYDROcodone 2021- No Closed 1{tbl} Take 1 [facility] -acetaminop -04-24 bimalleolar tablet by [facility]) 00:00: 00:00 fracture mouth 5-325 mg 00 :00 with every 6 tablet routine hours as healing, needed for unspecified up to 3 laterality, days for subsequent Pain encounter HYDROcodone 0 2021- No Closed 1{tbl} Take 1 [facility] -acetaminop -04-24 bimalleolar tablet by [facility]) 00:00: 00:00 fracture mouth 5-325 mg 00 :00 with every 6 tablet routine hours as healing, needed for unspecified up to 3 laterality, days for subsequent Pain encounter HYDROcodone 2021- No Closed 1{tbl} Take 1 [facility] -acetaminop -04-24 bimalleolar tablet by [facility]) 00:00: 00:00 fracture mouth 5-325 mg 00 :00 with every 6 tablet routine hours as healing, needed for unspecified up to 3 laterality, days for subsequent Pain encounter venlafaxine 2021-0 Yes 100mg Take 100 [facility] ([facility]) 8-[address] 75 MG 19:53: [facility] tablet 02 once. l topiramate 2021-0 Yes 100mg Take 1 [facility] (TOPAMAX) 8-[address] 100 MG 19:53: (100 mg Hospita tablet 02 total) by l mouth once. venlafaxine 2022-0 Yes 100mg Take 100 [facility] ([facility]) 8-[address] 75 MG 19:53: mouth [facility] tablet 02 once. l topiramate 2022-0 Yes 100mg Take 1 [facility] (TOPAMAX) 8-[address] 100 MG 19:53: (100 mg [facility]ospita tablet 02 total) by l mouth once. venlafaxine 2022-0 Yes 100mg Take 100 [facility] ([facility]) 8-[address] 75 MG 19:53: mouth [facility] tablet 02 once. l topiramate 2022-0 Yes 100mg Take 1 [facility] natan (TOPAMAX) 8-[address] 100 MG 19:53: (100 mg [facility]osp[facility] tablet 02 total) by l mouth once. venlafaxine 2022-0 Yes 100mg Take 100 [facility] ([facility]) 8-[address] 75 MG 19:53: mouth [facility] tablet 02 once. l topiramate 2022-0 Yes 100mg Take 1 [facility] (TOPAMAX) 8-[address] 100 MG 19:53: (100 mg [facility]osp[facility] tablet 02 total) by l mouth once. venlafaxine 2022-0 Yes 100mg Take 100 [facility] ([facility]) 8-[address] 75 MG 19:53: mouth [facility] tablet 02 once. l topiramate 2022-0 Yes 100mg Take 1 [facility] natan (TOPAMAX) 8-[address] 100 MG 19:53: (100 mg [facility]osp[facility] tablet 02 total) by l mouth once. venlafaxine 2022-0 Yes 100mg Take 100 [facility] ([facility]) 8-[address] 75 MG 19:53: mouth [facility] tablet 02 once. l topiramate 2022-0 Yes 100mg Take 1 [facility] natan (TOPAMAX) 8-[address] 100 MG 19:53: (100 mg [facility]osp[facility] tablet 02 total) by l mouth once. venlafaxine 2022-0 Yes 100mg Take 100 [facility] ([facility]) 8-[address] 75 MG 19:53: mouth [facility] tablet 02 once. l topiramate 2022-0 Yes 100mg Take 1 [facility] natan (TOPAMAX) 8-[address] 100 MG 19:53: (100 mg [facility]osp[facility] tablet 02 total) by l mouth once. venlafaxine 2022-0 Yes 100mg Take 100 [facility] ([facility]) 8-[address] 75 MG 19:53: mouth [facility] tablet 02 once. l topiramate 2022-0 Yes 100mg Take 1 [facility] natan (TOPAMAX) 8-[address] 100 MG 19:53: (100 mg [facility]osp[facility] tablet 02 total) by l mouth once. venlafaxine 2022-0 Yes 100mg Take 100 [facility] ([facility]) 8-[address] 75 MG 19:53: mouth [facility]osp[facility] tablet 02 once. l topiramate 2022-0 Yes 100mg Take 1 Meth natan (TOPAMAX) 8-[address] 100 MG 19:53: (100 mg [facility]osp[facility] tablet 02 total) by l mouth once. venlafaxine 2022-0 Yes 100mg Take 100 [facility] ([facility]) 8-[address] 75 MG 19:53: mouth [facility]osp[facility] tablet 02 once. l topiramate 2022-0 Yes 100mg Take 1 Meth natan (TOPAMAX) 8-[address] 100 MG 19:53: (100 mg [facility]osp[facility] tablet 02 total) by l mouth once. venlafaxine 2022-0 Yes 100mg Take 100 [facility] ([facility]) 8-[address] 75 MG 19:53: mouth [facility]osp[facility] tablet 02 once. l topiramate 2022-0 Yes 100mg Take 1 [facility] natan (TOPAMAX) 8-[address] 100 MG 19:53: (100 mg [facility]osp[facility] tablet 02 total) by l mouth once. venlafaxine 2022-0 Yes 100mg Take 100 [facility] ([facility]) 8-[address] 75 MG 19:53: mouth [facility] tablet 02 once. l topiramate 2022-0 Yes 100mg Take 1 Meth natan (TOPAMAX) 8-[address] 100 MG 19:53: (100 mg [facility] tablet 02 total) by l mouth once. venlafaxine 2022-0 Yes 100mg Take 100 [facility] ([facility]) 8-[address] 75 MG 19:53: mouth [facility] tablet 02 once. l topiramate 2022-0 Yes 100mg Take 1 [facility] natan (TOPAMAX) 8-[address] 100 MG 19:53: (100 mg [facility]osp[facility] tablet 02 total) by l mouth once. venlafaxine 2022-0 Yes 100mg Take 100 [facility] ([facility]) 8-[address] 75 MG 19:53: mouth [facility] tablet 02 once. l topiramate 2022-0 Yes 100mg Take 1 [facility] natan (TOPAMAX) 8-[address] 100 MG 19:53: (100 mg [facility]osp[facility] tablet 02 total) by l mouth once. venlafaxine 2022-0 Yes 100mg Take 100 [facility] ([facility]) 8-[address] 75 MG 19:53: mouth [facility] tablet 02 once. l topiramate 2022-0 Yes 100mg Take 1 [facility] (TOPAMAX) 8-[address] 100 MG 19:53: (100 mg [facility]osp[facility] tablet 02 total) by l mouth once. venlafaxine 2022-0 Yes 100mg Take 100 [facility] ([facility]) 8-[address] 75 MG 19:53: mouth [facility]osp[facility] tablet 02 once. l topiramate 2022-0 Yes 100mg Take 1 [facility] natan (TOPAMAX) 8-[address] 100 MG 19:53: (100 mg [facility]osp[facility] tablet 02 total) by l mouth once. venlafaxine 2022-0 Yes 100mg Take 100 [facility] ([facility]) 8-[address] 75 MG 19:53: mouth [facility]osp[facility] tablet 02 once. l topiramate 2022-0 Yes 100mg Take 1 [facility] (TOPAMAX) 8-[address] 100 MG 19:53: (100 mg [facility]osp[facility] tablet 02 total) by l mouth once. venlafaxine 2022-0 Yes 100mg Take 100 [facility] ([facility]) 8-[address] 75 MG 19:53: mouth [facility] tablet 02 once. l topiramate 2022-0 Yes 100mg Take 1 [facility]an (TOPAMAX) 8-[address] 100 MG 19:53: (100 mg [facility]osp[facility] tablet 02 total) by l mouth once. venlafaxine 2022-0 Yes 100mg Take 100 [facility] ([facility]) 8-[address] 75 MG 19:53: mouth [facility] tablet 02 once. l topiramate 2022-0 Yes 100mg Take 1 [facility] (TOPAMAX) 8-[address] 100 MG 19:53: (100 mg [facility]osp[facility] tablet 02 total) by l mouth once. venlafaxine 2022-0 Yes 100mg Take 100 [facility] ([facility]) 8-[address] 75 MG 19:53: mouth [facility] tablet 02 once. l topiramate 2022-0 Yes 100mg Take 1 [facility] (TOPAMAX) 8-[address] 100 MG 19:53: (100 mg [facility]osp[facility] tablet 02 total) by l mouth once. venlafaxine 2022-0 Yes 100mg Take 100 [facility] ([facility]) 8-[address] 75 MG 19:53: mouth [facility] tablet 02 once. l topiramate 2022-0 Yes 100mg Take 1 [facility] (TOPAMAX) 8-[address] 100 MG 19:53: (100 mg [facility]osp[facility] tablet 02 total) by l mouth once. venlafaxine 2022-0 Yes 100mg Take 100 [facility] ([facility]) 8-[address] 75 MG 19:53: mouth [facility]osp[facility] tablet 02 once. l topiramate 2022-0 Yes 100mg Take 1 [facility] (TOPAMAX) 8-[address] 100 MG 19:53: (100 mg [facility]osp[facility] tablet 02 total) by l mouth once. venlafaxine 2022-0 Yes 100mg Take 100 [facility] ([facility]) 8-[address] 75 MG 19:53: mouth [facility]osp[facility] tablet 02 once. l topiramate 2022-0 Yes 100mg Take 1 [facility] (TOPAMAX) 8-[address] 100 MG 19:53: (100 mg [facility] tablet 02 total) by l mouth once. venlafaxine 2022-0 Yes 100mg Take 100 [facility] (EFFEXOR) 8-[address] 75 MG 19:53: mouth [facility] tablet 02 once. l topiramate 2022-0 Yes 100mg Take 1 [facility] (TOPAMAX) 8-[address] 100 MG 19:53: (100 mg [facility] tablet 02 total) by l mouth once. venlafaxine 2022-0 Yes 100mg Take 100 [facility] (EFFEXOR) 8-[address] 75 MG 19:53: mouth [facility] tablet 02 once. l topiramate 2022-0 Yes 100mg Take 1 [facility] (TOPAMAX) 8-[address] 100 MG 19:53: (100 mg [facility] tablet 02 total) by l mouth once. venlafaxine 2022-0 Yes 100mg Take 100 [facility] (EFFEXOR) 8-[address] 75 MG 19:53: mouth [facility] tablet 02 once. l topiramate 2022-0 Yes 100mg Take 1 [facility] (TOPAMAX) 8-[address] 100 MG 19:53: (100 mg [facility] tablet 02 total) by l mouth once. venlafaxine 2022-0 Yes 100mg Take 100 [facility] (EFFEXOR) 8-[address] 75 MG 19:53: mouth [facility] tablet 02 once. l topiramate 2022-0 Yes 100mg Take 1 [facility] (TOPAMAX) 8-[address] 100 MG 19:53: (100 mg [facility] tablet 02 total) by l mouth once. venlafaxine 2022-0 Yes 100mg Take 100 [facility] (EFFEXOR) 8-[address] 75 MG 19:53: mouth [facility] tablet 02 once. l topiramate 2022-0 Yes 100mg Take 1 [facility] (TOPAMAX) 8-[address] 100 MG 19:53: (100 mg [facility] tablet 02 total) by l mouth once. venlafaxine 2022-0 Yes 100mg Take 100 [facility] (EFFEXOR) 8-[address] 75 MG 19:53: mouth [facility] tablet 02 once. l topiramate 2022-0 Yes 100mg Take 1 [facility] (TOPAMAX) 8-[address] 100 MG 19:53: (100 mg [facility] tablet 02 total) by l mouth once. venlafaxine 2022-0 Yes 100mg Take 100 [facility] (EFFEXOR) 8-[address] 75 MG 19:53: mouth [facility] tablet 02 once. l topiramate 2022-0 Yes 100mg Take 1 [facility] (TOPAMAX) 8-[address] 100 MG 19:53: (100 mg [facility] tablet 02 total) by l mouth once. venlafaxine 2022-0 Yes 100mg Take 100 [facility] (EFFEXOR) 8-[address] 75 MG 19:53: mouth [facility] tablet 02 once. l topiramate 2022-0 Yes 100mg Take 1 [facility] (TOPAMAX) 8-[address] 100 MG 19:53: (100 mg [facility] tablet 02 total) by l mouth once. venlafaxine 2022-0 Yes 100mg Take 100 [facility] (EFFEXOR) 8-[address] 75 MG 19:53: mouth [facility] tablet 02 once. l topiramate 2022-0 Yes 100mg Take 1 [facility] (TOPAMAX) 8-[address] 100 MG 19:53: (100 mg [facility] tablet 02 total) by l mouth once. venlafaxine 2022-0 Yes 100mg Take 100 [facility] (EFFEXOR) 8-[address] 75 MG 19:53: mouth [facility] tablet 02 once. l topiramate 2022-0 Yes 100mg Take 1 [facility] (TOPAMAX) 8-[address] 100 MG 19:53: (100 mg [facility] tablet 02 total) by l mouth once. venlafaxine 2022-0 Yes 100mg Take 100 [facility] (EFFEXOR) 8-[address] 75 MG 19:53: mouth [facility] tablet 02 once. l topiramate 2022-0 Yes 100mg Take 1 [facility] (TOPAMAX) 8-[address] 100 MG 19:53: (100 mg [facility] tablet 02 total) by l mouth once. doxycycline 2021-0 2022- No 100mg Q.5D Take 1 [facility] (VIBRAMYCIN 04-[address] ) 100 MG 00:00: 04:59 (100 mg [facility] capsule 00 :00 total) by l mouth 2 (two) times a day for 7 days. doxycycline 2022-0 202- No 100mg Q.5D Take 1 [facility] (VIBRAMYCIN 04-[address] ) 100 MG 00:00: 04:59 (100 mg [facility] capsule 00 :00 total) by l mouth 2 (two) times a day for 7 days. doxycycline 2-0 202- No 100mg Q.5D Take 1 [facility] (VIBRAMYCIN 04-[address] ) 100 MG 00:00: 04:59 (100 mg [facility] capsule 00 :00 total) by l mouth 2 (two) times a day for 7 days. doxycycline 2021-2021- No 100mg Q.5D Take 1 [facility] (VIBRAMYCIN 8-25 09-[address] ) 100 MG 00:00: 04:59 (100 mg [facility] capsule 00 :00 total) by l mouth 2 (two) times a day for 7 days. doxycycline 2021-2021- No 100mg Q.5D Take 1 [facility] (VIBRAMYCIN 8-25 09-[address] ) 100 MG 00:00: 04:59 (100 mg [facility] capsule 00 :00 total) by l mouth 2 (two) times a day for 7 days. doxycycline 2021-2021- No 100mg Q.5D Take 1 [facility] (VIBRAMYCIN 8-25 09-[address] ) 100 MG 00:00: 04:59 (100 mg [facility] capsule 00 :00 total) by l mouth 2 (two) times a day for 7 days. doxycycline 2021-0 2021- No 100mg Q.5D Take 1 [facility] (VIBRAMYCIN 8-25 09-[address] ) 100 MG 00:00: 04:59 (100 mg [facility] capsule 00 :00 total) by l mouth 2 (two) times a day for 7 days. doxycycline 2021-0 2021- No 100mg Q.5D Take 1 [facility] (VIBRAMYCIN 8-25 09-[address] ) 100 MG 00:00: 04:59 (100 mg [facility] capsule 00 :00 total) by l mouth 2 (two) times a day for 7 days. doxycycline 2021-0 2021- No 100mg Q.5D Take 1 [facility] (VIBRAMYCIN 8-25 09-[address] ) 100 MG 00:00: 04:59 (100 mg [facility] capsule 00 :00 total) by l mouth 2 (two) times a day for 7 days. doxycycline 2021-0 2021- No 100mg Q.5D Take 1 [facility] (VIBRAMYCIN 8-25 09-[address] ) 100 MG 00:00: 04:59 (100 mg [facility] capsule 00 :00 total) by l mouth 2 (two) times a day for 7 days. doxycycline 2021-0 2021- No 100mg Q.5D Take 1 [facility] (VIBRAMYCIN 8-25 09-[address] ) 100 MG 00:00: 04:59 (100 mg [facility] capsule 00 :00 total) by l mouth 2 (two) times a day for 7 days. doxycycline 2021- No 100mg Q.5D Take 1 [facility] (VIBRAMYCIN 8-25 09-[address] ) 100 MG 00:00: 04:59 (100 mg [facility] capsule 00 :00 total) by l mouth 2 (two) times a day for 7 days. doxycycline 2021- No 100mg Q.5D Take 1 [facility] (VIBRAMYCIN 8-25 09-[address] ) 100 MG 00:00: 04:59 (100 mg [facility] capsule 00 :00 total) by l mouth 2 (two) times a day for 7 days. doxycycline 2021-2021- No 100mg Q.5D Take 1 [facility] (VIBRAMYCIN 8-25 09-[address] ) 100 MG 00:00: 04:59 (100 mg [facility] capsule 00 :00 total) by l mouth 2 (two) times a day for 7 days. doxycycline 2021- No 100mg Q.5D Take 1 [facility] (VIBRAMYCIN 8-25 09-[address] ) 100 MG 00:00: 04:59 (100 mg [facility] capsule 00 :00 total) by l mouth 2 (two) times a day for 7 days. doxycycline 2021- No 100mg Q.5D Take 1 [facility] (VIBRAMYCIN 8-25 09-[address] ) 100 MG 00:00: 04:59 (100 mg [facility] capsule 00 :00 total) by l mouth 2 (two) times a day for 7 days. doxycycline 2021-2021- No 100mg Q.5D Take 1 [facility] (VIBRAMYCIN 8-25 09-[address] ) 100 MG 00:00: 04:59 (100 mg [facility] capsule 00 :00 total) by l mouth 2 (two) times a day for 7 days. doxycycline 2021- No 100mg Q.5D Take 1 [facility] (VIBRAMYCIN 8-25 09-[address] ) 100 MG 00:00: 04:59 (100 mg [facility] capsule 00 :00 total) by l mouth 2 (two) times a day for 7 days. doxycycline 2021- No 100mg Q.5D Take 1 [facility] (VIBRAMYCIN 8-25 09-[address] ) 100 MG 00:00: 04:59 (100 mg [facility] capsule 00 :00 total) by l mouth 2 (two) times a day for 7 days. doxycycline 2021- No 100mg Q.5D Take 1 [facility] (VIBRAMYCIN 8-25 09-[address] ) 100 MG 00:00: 04:59 (100 mg [facility] capsule 00 :00 total) by l mouth 2 (two) times a day for 7 days. doxycycline 2021-2021- No 100mg Q.5D Take 1 [facility] (VIBRAMYCIN 8-25 09-[address] ) 100 MG 00:00: 04:59 (100 mg [facility] capsule 00 :00 total) by l mouth 2 (two) times a day for 7 days. doxycycline 2021- No 100mg Q.5D Take 1 [facility] (VIBRAMYCIN 8-25 09-[address] ) 100 MG 00:00: 04:59 (100 mg [facility] capsule 00 :00 total) by l mouth 2 (two) times a day for 7 days. doxycycline 2021- No 100mg Q.5D Take 1 [facility] (VIBRAMYCIN 8-25 09-[address] ) 100 MG 00:00: 04:59 (100 mg [facility] capsule 00 :00 total) by l mouth 2 (two) times a day for 7 days. doxycycline 2021- No 100mg Q.5D Take 1 [facility] (VIBRAMYCIN 8-25 09-[address] ) 100 MG 00:00: 04:59 (100 mg [facility] capsule 00 :00 total) by l mouth 2 (two) times a day for 7 days. doxycycline 2021- No 100mg Q.5D Take 1 [facility] (VIBRAMYCIN 8-25 09-[address] ) 100 MG 00:00: 04:59 (100 mg [facility] capsule 00 :00 total) by l mouth 2 (two) times a day for 7 days. doxycycline 2021- No 100mg Q.5D Take 1 [facility] (VIBRAMYCIN 8-25 09-[address] ) 100 MG 00:00: 04:59 (100 mg [facility] capsule 00 :00 total) by l mouth 2 (two) times a day for 7 days. doxycycline 2021-2021- No 100mg Q.5D Take 1 [facility] (VIBRAMYCIN 8-25 09-[address] ) 100 MG 00:00: 04:59 (100 mg [facility] capsule 00 :00 total) by l mouth 2 (two) times a day for 7 days. doxycycline 2021- No 100mg Q.5D Take 1 [facility] (VIBRAMYCIN 8-25 09-[address] ) 100 MG 00:00: 04:59 (100 mg [facility] capsule 00 :00 total) by l mouth 2 (two) times a day for 7 days. doxycycline 2021- No 100mg Q.5D Take 1 [facility] (VIBRAMYCIN 8-25 09-[address] ) 100 MG 00:00: 04:59 (100 mg [facility] capsule 00 :00 total) by l mouth 2 (two) times a day for 7 days. doxycycline 2021- No 100mg Q.5D Take 1 [facility] (VIBRAMYCIN 8-25 09-[address] ) 100 MG 00:00: 04:59 (100 mg [facility] capsule 00 :00 total) by l mouth 2 (two) times a day for 7 days. doxycycline 2021- No 100mg Q.5D Take 1 [facility] (VIBRAMYCIN 8-25 09-[address] ) 100 MG 00:00: 04:59 (100 mg Hospi [facility] capsule 00 :00 total) by l mouth 2 (two) times a day for 7 days. doxycycline 2021-2021- No 100mg Q.5D Take 1 [facility] (VIBRAMYCIN 8-25 09-[address] ) 100 MG 00:00: 04:59 (100 mg Hos[facility] capsule 00 :00 total) by l mouth 2 (two) times a day for 7 days. doxycycline 2021- No 100mg Q.5D Take 1 [facility] (VIBRAMYCIN 8-25 09-[address] ) 100 MG 00:00: 04:59 (100 mg [facility] capsule 00 :00 total) by l mouth 2 (two) times a day for 7 days. doxycycline 2021-0 2022- No 100mg Q.5D Take 1 [facility] (VIBRAMYCIN 04-15-[address] ) 100 MG 00:00: 04:59 (100 mg [facility]pi [facility] capsule 00 :00 total) by l mouth 2 (two) times a day for 7 days. naproxen 2021-0 Yes Closed 500mg Q.5D Take 1 [facility] (NAPROSYN) 8-16 bimalleolar tablet by [facility] 500 mg 00:00: fracture of mouth 2 tablet 00 left ankle, times initial daily with encounter meals naproxen 2021-0 Yes Closed 500mg Q.5D Take 1 [facility] (NAPROSYN) 8-16 bimalleolar tablet by [facility] 500 mg 00:00: fracture of mouth 2 tablet 00 left ankle, times initial daily with encounter meals naproxen 2021-0 Yes Closed 500mg Q.5D Take 1 [facility] (NAPROSYN) 8-16 bimalleolar tablet by [facility] 500 mg 00:00: fracture of mouth 2 tablet 00 left ankle, times initial daily with encounter meals gabapentin 2021-0 Yes Closed 300mg Take 1 [facility] (NEURONTIN) 8-16 bimalleolar capsule by [facility] 300 mg 00:00: fracture of mouth 3 capsule 00 left ankle, times initial daily encounter naproxen 2021-0 Yes Closed 500mg Q.5D Take 1 [facility] (NAPROSYN) 8-16 bimalleolar tablet by [facility] 500 mg 00:00: fracture of mouth 2 tablet 00 left ankle, times initial daily with encounter meals naproxen 2021-0 Yes Closed 500mg Q.5D Take 1 [facility] (NAPROSYN) 8-16 bimalleolar tablet by [facility] 500 mg 00:00: fracture of mouth 2 tablet 00 left ankle, times initial daily with encounter meals naproxen 2021-0 Yes Closed 500mg Q.5D Take 1 [facility] (NAPROSYN) 8-16 bimalleolar tablet by [facility] 500 mg 00:00: fracture of mouth 2 tablet 00 left ankle, times initial daily with encounter meals naproxen 2021-0 Yes Closed 500mg Q.5D Take 1 [facility] (NAPROSYN) 8-16 bimalleolar tablet by [facility] 500 mg 00:00: fracture of mouth 2 tablet 00 left ankle, times initial daily with encounter meals naproxen 2021-0 Yes Closed 500mg Q.5D Take 1 [facility] (NAPROSYN) 8-16 bimalleolar tablet by [facility] 500 mg 00:00: fracture of mouth 2 tablet 00 left ankle, times initial daily with encounter meals naproxen 2021-0 Yes Closed 500mg Q.5D Take 1 [facility] (NAPROSYN) 8-16 bimalleolar tablet by [facility] 500 mg 00:00: fracture of mouth 2 tablet 00 left ankle, times initial daily with encounter meals naproxen 2021-0 Yes Closed 500mg Q.5D Take 1 [facility] (NAPROSYN) 8-16 bimalleolar tablet by [facility] 500 mg 00:00: fracture of mouth 2 tablet 00 left ankle, times initial daily with encounter meals naproxen 2021-0 Yes Closed 500mg Q.5D Take 1 [facility] (NAPROSYN) 8-16 bimalleolar tablet by [facility] 500 mg 00:00: fracture of mouth 2 tablet 00 left ankle, times initial daily with encounter meals naproxen 2021-0 Yes Closed 500mg Q.5D Take 1 [facility] (NAPROSYN) 8-16 bimalleolar tablet by [facility] 500 mg 00:00: fracture of mouth 2 tablet 00 left ankle, times initial daily with encounter meals naproxen 2021-0 Yes Closed 500mg Q.5D Take 1 [facility] (NAPROSYN) 8-16 bimalleolar tablet by [facility] 500 mg 00:00: fracture of mouth 2 tablet 00 left ankle, times initial daily with encounter meals naproxen 2021-0 Yes Closed 500mg Q.5D Take 1 [facility] (NAPROSYN) 8-16 bimalleolar tablet by [facility] 500 mg 00:00: fracture of mouth 2 tablet 00 left ankle, times initial daily with encounter meals naproxen 2021-0 Yes Closed 500mg Q.5D Take 1 [facility] (NAPROSYN) 8-16 bimalleolar tablet by [facility] 500 mg 00:00: fracture of mouth 2 tablet 00 left ankle, times initial daily with encounter meals naproxen 2021-0 Yes Closed 500mg Q.5D Take 1 [facility] (NAPROSYN) 8-16 bimalleolar tablet by [facility] 500 mg 00:00: fracture of mouth 2 tablet 00 left ankle, times initial daily with encounter meals naproxen 2021-0 Yes Closed 500mg Q.5D Take 1 [facility] (NAPROSYN) 8-16 bimalleolar tablet by Health 500 mg 00:00: fracture of mouth 2 tablet 00 left ankle, times initial daily with encounter meals naproxen 2021-0 Yes Closed 500mg Q.5D Take 1 [facility] (NAPROSYN) 8-16 bimalleolar tablet by [facility] 500 mg 00:00: fracture of mouth 2 tablet 00 left ankle, times initial daily with encounter meals naproxen 2021-0 Yes Closed 500mg Q.5D Take 1 [facility] (NAPROSYN) 8-16 bimalleolar tablet by [facility] 500 mg 00:00: fracture of mouth 2 tablet 00 left ankle, times initial daily with encounter meals Cyclobenzap 2021-2022- No Closed 10mg Take 2 [facility] rine 04-06 bimalleolar tablets by [facility] (FLEXERIL) 00:00: 23:59 fracture of mouth 3 5 mg tablet 00 :00 left ankle, times initial daily as encounter needed for Muscle Spasms Cyclobenzap 2021- No Closed 10mg Take 2 [facility] rine 04-06 bimalleolar tablets by [facility] (FLEXERIL) 00:00: 00:00 fracture of mouth 3 5 mg tablet 00 :00 left ankle, times initial daily as encounter needed for Muscle Spasms gabapentin 2021- No Closed 300mg Take 1 [facility] (NEURONTIN) 04-06 bimalleolar capsule by [facility] 300 mg 00:00: 00:00 fracture of mouth 3 capsule 00 :00 left ankle, times initial daily encounter Cyclobenzap 2021-0 2021- No Closed 10mg Take 2 [facility] rine 04-06 bimalleolar tablets by [facility] (FLEXERIL) 00:00: 00:00 fracture of mouth 3 5 mg tablet 00 :00 left ankle, times initial daily as encounter needed for Muscle Spasms gabapentin 2021- No Closed 300mg Take 1 [facility] (NEURONTIN) 04-06 bimalleolar capsule by [facility] 300 mg 00:00: 00:00 fracture of mouth 3 capsule 00 :00 left ankle, times initial daily encounter Cyclobenzap 2021-0 2021- No Closed 10mg Take 2 [facility] rine 04-06 bimalleolar tablets by [facility] (FLEXERIL) 00:00: 00:00 fracture of mouth 3 5 mg tablet 00 :00 left ankle, times initial daily as encounter needed for Muscle Spasms gabapentin 2022-0 2022- No Closed 300mg Take 1 [facility]is (NEURONTIN) 04-06 bimalleolar capsule by [facility] 300 mg 00:00: 00:00 fracture of mouth 3 capsule 00 :00 left ankle, times initial daily encounter Cyclobenzap 2022-0 2022- No Closed 10mg Take 2 [facility]is rine 04-06 bimalleolar tablets by [facility] (FLEXERIL) 00:00: 00:00 fracture of mouth 3 5 mg tablet 00 :00 left ankle, times initial daily as encounter needed for Muscle Spasms gabapentin 2022-0 2022- No Closed 300mg Take 1 [facility]is (NEURONTIN) 04-06 bimalleolar capsule by [facility] 300 mg 00:00: 00:00 fracture of mouth 3 capsule 00 :00 left ankle, times initial daily encounter Cyclobenzap 2022-0 2022- No Closed 10mg Take 2 [facility]is rine 04-06 bimalleolar tablets by [facility] (FLEXERIL) 00:00: 00:00 fracture of mouth 3 5 mg tablet 00 :00 left ankle, times initial daily as encounter needed for Muscle Spasms gabapentin 2022-0 2022- No Closed 300mg Take 1 [facility] (NEURONTIN) 04-06 bimalleolar capsule by [facility] 300 mg 00:00: 00:00 fracture of mouth 3 capsule 00 :00 left ankle, times initial daily encounter Cyclobenzap 2022-0 2022- No Closed 10mg Take 2 [facility] rine 04-06 bimalleolar tablets by [facility] (FLEXERIL) 00:00: 00:00 fracture of mouth 3 5 mg tablet 00 :00 left ankle, times initial daily as encounter needed for Muscle Spasms gabapentin 2022-0 2022- No Closed 300mg Take 1 [facility] (NEURONTIN) 04-06 bimalleolar capsule by [facility] 300 mg 00:00: 00:00 fracture of mouth 3 capsule 00 :00 left ankle, times initial daily encounter Cyclobenzap 2022-0 2022- No Closed 10mg Take 2 H arris rine 04-06 bimalleolar tablets by [facility] (FLEXERIL) 00:00: 00:00 fracture of mouth 3 5 mg tablet 00 :00 left ankle, times initial daily as encounter needed for Muscle Spasms gabapentin 2022-0 2022- No Closed 300mg Take 1 [facility] (NEURONTIN) 04-06 bimalleolar capsule by [facility] 300 mg 00:00: 00:00 fracture of mouth 3 capsule 00 :00 left ankle, times initial daily encounter Cyclobenzap 2-0 2022- No Closed 10mg Take 2 H arris rine 04-06 bimalleolar tablets by [facility]ner (FLEXERIL) 00:00: 00:00 fracture of mouth 3 5 mg tablet 00 :00 left ankle, times initial daily as encounter needed for Muscle Spasms gabapentin 2-0 2022- No Closed 300mg Take 1 [facility] (NEURONTIN) 04-06 bimalleolar capsule by [facility] 300 mg 00:00: 00:00 fracture of mouth 3 capsule 00 :00 left ankle, times initial daily encounter Cyclobenzap 2021-0 2022- No Closed 10mg Take 2 H arris rine 04-06 bimalleolar tablets by [facility] (FLEXERIL) 00:00: 00:00 fracture of mouth 3 5 mg tablet 00 :00 left ankle, times initial daily as encounter needed for Muscle Spasms gabapentin 2-0 2022- No Closed 300mg Take 1 [facility] (NEURONTIN) 04-06 bimalleolar capsule by [facility] 300 mg 00:00: 00:00 fracture of mouth 3 capsule 00 :00 left ankle, times initial daily encounter Cyclobenzap 2-0 2022- No Closed 10mg Take 2 H arris rine 04-06 bimalleolar tablets by [facility] (FLEXERIL) 00:00: 00:00 fracture of mouth 3 5 mg tablet 00 :00 left ankle, times initial daily as encounter needed for Muscle Spasms gabapentin 2022-0 2022- No Closed 300mg Take 1 [facility] (NEURONTIN) 04-06 bimalleolar capsule by [facility] 300 mg 00:00: 00:00 fracture of mouth 3 capsule 00 :00 left ankle, times initial daily encounter Cyclobenzap 2021-0 2- No Closed 10mg Take 2 [facility] rine 04-06 bimalleolar tablets by [facility] (FLEXERIL) 00:00: 00:00 fracture of mouth 3 5 mg tablet 00 :00 left ankle, times initial daily as encounter needed for Muscle Spasms gabapentin 2021-0 2022- No Closed 300mg Take 1 [facility] (NEURONTIN) 04-06 bimalleolar capsule by [facility] 300 mg 00:00: 00:00 fracture of mouth 3 capsule 00 :00 left ankle, times initial daily encounter Cyclobenzap 2021-2021- No Closed 10mg Take 2 [facility] rine 04-06 bimalleolar tablets by [facility] (FLEXERIL) 00:00: 00:00 fracture of mouth 3 5 mg tablet 00 :00 left ankle, times initial daily as encounter needed for Muscle Spasms gabapentin 2021- No Closed 300mg Take 1 [facility] (NEURONTIN) 04-06 bimalleolar capsule by [facility] 300 mg 00:00: 00:00 fracture of mouth 3 capsule 00 :00 left ankle, times initial daily encounter Cyclobenzap 2021- No Closed 10mg Take 2 [facility] rine 04-06 bimalleolar tablets by [facility] (FLEXERIL) 00:00: 00:00 fracture of mouth 3 5 mg tablet 00 :00 left ankle, times initial daily as encounter needed for Muscle Spasms gabapentin 0 202- No Closed 300mg Take 1 [facility] (NEURONTIN) 04-06 bimalleolar capsule by [facility] 300 mg 00:00: 00:00 fracture of mouth 3 capsule 00 :00 left ankle, times initial daily encounter Cyclobenzap 2021-0 2022- No Closed 10mg Take 2 [facility]is rine 04-06 bimalleolar tablets by [facility] (FLEXERIL) 00:00: 00:00 fracture of mouth 3 5 mg tablet 00 :00 left ankle, times initial daily as encounter needed for Muscle Spasms gabapentin 0 2022- No Closed 300mg Take 1 [facility] (NEURONTIN) 8-16 09-16 bimalleolar capsule by [facility] 300 mg 00:00: 00:00 fracture of mouth 3 capsule 00 :00 left ankle, times initial daily encounter Cyclobenzap 2022-0 2022- No Closed 10mg Take 2 [facility]is rine 04-06 bimalleolar tablets by [facility] (FLEXERIL) 00:00: 00:00 fracture of mouth 3 5 mg tablet 00 :00 left ankle, times initial daily as encounter needed for Muscle Spasms gabapentin 2021-0 2022- No Closed 300mg Take 1 [facility] (NEURONTIN) 04-06 bimalleolar capsule by [facility] 300 mg 00:00: 00:00 fracture of mouth 3 capsule 00 :00 left ankle, times initial daily encounter Cyclobenzap 2021-0 2022- No Closed 10mg Take 2 [facility]is rine 04-06 bimalleolar tablets by [facility] (FLEXERIL) 00:00: 00:00 fracture of mouth 3 5 mg tablet 00 :00 left ankle, times initial daily as encounter needed for Muscle Spasms gabapentin 2021-0 2022- No Closed 300mg Take 1 [facility] (NEURONTIN) 04-06 bimalleolar capsule by [facility] 300 mg 00:00: 00:00 fracture of mouth 3 capsule 00 :00 left ankle, times initial daily encounter Cyclobenzap 2022-0 2022- No Closed 10mg Take 2 [facility] rine 04-06 bimalleolar tablets by [facility] (FLEXERIL) 00:00: 00:00 fracture of mouth 3 5 mg tablet 00 :00 left ankle, times initial daily as encounter needed for Muscle Spasms gabapentin 2021-0 2022- No Closed 300mg Take 1 [facility] (NEURONTIN) 04-06 bimalleolar capsule by [facility] 300 mg 00:00: 00:00 fracture of mouth 3 capsule 00 :00 left ankle, times initial daily encounter Cyclobenzap 202-0 2022- No Closed 10mg Take 2 [facility] rine 04-06 bimalleolar tablets by [facility] (FLEXERIL) 00:00: 00:00 fracture of mouth 3 5 mg tablet 00 :00 left ankle, times initial daily as encounter needed for Muscle Spasms gabapentin 2022-0 2022- No Closed 300mg Take 1 H [facility]is (NEURONTIN) -16 -16 bimalleolar capsule by [facility] 300 mg 00:00: 00:00 fracture of mouth 3 capsule 00 :00 left ankle, times initial daily encounter HYDROcodone 2021- No Closed 1{tbl} Take 1 [facility] -acetaminop 8-16 - bimalleolar tablet by [facility] (Nurigene) 00:00: 00:00 fracture of mouth 5-325 mg 00 :00 left ankle, every 6 tablet initial hours as encounter needed for Pain HYDROcodone 2021- No Closed 1{tbl} Take 1 [facility] -acetaminop 8-16 - bimalleolar tablet by [facility] (Nurigene) 00:00: 00:00 fracture of mouth 5-325 mg 00 :00 left ankle, every 6 tablet initial hours as encounter needed for Pain HYDROcodone 2021- No Closed 1{tbl} Take 1 [facility] -acetaminop 8-16 - bimalleolar tablet by [facility] (Nurigene) 00:00: 00:00 fracture of mouth 5-325 mg 00 :00 left ankle, every 6 tablet initial hours as encounter needed for Pain HYDROcodone 2021- No Closed 1{tbl} Take 1 [facility] -acetaminop 8-16 - bimalleolar tablet by [facility] (Nurigene) 00:00: 00:00 fracture of mouth 5-325 mg 00 :00 left ankle, every 6 tablet initial hours as encounter needed for Pain HYDROcodone 2021-2021- No Closed 1{tbl} Take 1 [facility] -acetaminop 8-16 -03 bimalleolar tablet by [facility] (Nurigene) 00:00: 00:00 fracture of mouth 5-325 mg 00 :00 left ankle, every 6 tablet initial hours as encounter needed for Pain HYDROcodone 2021-2021- No Closed 1{tbl} Take 1 [facility] -acetaminop 8-16 -03 bimalleolar tablet by [facility] (Nurigene) 00:00: 00:00 fracture of mouth 5-325 mg 00 :00 left ankle, every 6 tablet initial hours as encounter needed for Pain HYDROcodone 2021- No Closed 1{tbl} Take 1 [facility] -acetaminop 8-16 09-03 [facility]olar tablet [facility]: 00:00 fracture of mouth 5-325 mg 00 :00 left ankle, every 6 tablet initial hours as encounter needed for Pain HYDROcodone 2021-2021- No Closed 1{tbl} Take 1 [facility] -acetaminop 8-16 09-03 [facility]leolar tablet [facility] 00:00: 00:00 fracture of mouth 5-325 mg 00 :00 left ankle, every 6 tablet initial hours as encounter needed for Pain HYDROcodone 2021-2021- No Closed 1{tbl} Take 1 [facility] -acetaminop 8-16 09-03 [facility]imalleolar tablet by [facility] 00:00: 00:00 fracture of mouth 5-325 mg 00 :00 left ankle, every 6 tablet initial hours as encounter needed for Pain HYDROcodone 2021-2021- No Closed 1{tbl} Take 1 [facility] -acetaminop 8-16 09-03 bimalleolar tablet by [facility] (PLANO) 00:00: 00:00 fracture of mouth 5-325 mg 00 :00 left ankle, every 6 tablet initial hours as encounter needed for Pain HYDROcodone 2021-2021- No Closed 1{tbl} Take 1 [facility] -acetaminop 8-16 09-03 bimalleolar tablet by [facility] (PLANO) 00:00: 00:00 fracture of mouth 5-325 mg 00 :00 left ankle, every 6 tablet initial hours as encounter needed for Pain HYDROcodone 2021-0 2021- No Closed 1{tbl} Take 1 [facility] -acetaminop 8-16 09-03 [facility]leolar tablet by [facility] 00:00: 00:00 fracture of mouth 5-325 mg 00 :00 left ankle, every 6 tablet initial hours as encounter needed for Pain HYDROcodone 2021-0 2021- No Closed 1{tbl} Take 1 [facility] -acetaminop 8-16 09-03 [facility]imalleolar tablet [facility] 00:00: 00:00 fracture of mouth 5-325 mg 00 :00 left ankle, every 6 tablet initial hours as encounter needed for Pain HYDROcodone 2021-0 2021- No Closed 1{tbl} Take 1 [facility] -acetaminop 8-16 09-03 bimalleolar tablet by [facility] ([facility]) 00:00: 00:00 fracture of mouth 5-325 mg 00 :00 left ankle, every 6 tablet initial hours as encounter needed for Pain HYDROcodone 2021-2021- No Closed 1{tbl} Take 1 [facility] -acetaminop 8-16 09-03 bimalleolar tablet by [facility] ([facility]) 00:00: 00:00 fracture of mouth 5-325 mg 00 :00 left ankle, every 6 tablet initial hours as encounter needed for Pain HYDROcodone 2021-2021- No Closed 1{tbl} Take 1 [facility] -acetaminop 8-16 09-03 bimalleolar tablet by [facility] ([facility]) 00:00: 00:00 fracture of mouth 5-325 mg 00 :00 left ankle, every 6 tablet initial hours as encounter needed for Pain HYDROcodone 2021-2021- No Closed 1{tbl} Take 1 [facility] -acetaminop 8-16 -03 bimalleolar tablet by [facility] ([facility]) 00:00: 00:00 fracture of mouth 5-325 mg 00 :00 left ankle, every 6 tablet initial hours as encounter needed for Pain HYDROcodone 2021-2021- No Closed 1{tbl} Take 1 [facility] -acetaminop 8-16 -03 bimalleolar tablet by [facility] ([facility]) 00:00: 00:00 fracture of mouth 5-325 mg 00 :00 left ankle, every 6 tablet initial hours as encounter needed for Pain HYDROcodone 2021-0 2021- No Closed 1{tbl} Take 1 [facility] -acetaminop 8-16 -03 bimalleolar tablet by [facility] ([facility]) 00:00: 00:00 fracture of mouth 5-325 mg 00 :00 left ankle, every 6 tablet initial hours as encounter needed for Pain traMADoL 2021-2021- No Closed 100mg Take 2 [facility] (ULTRAM) 50 -16 -16 bimalleolar tablets by [facility] tablet 00:00: 00:00 fracture of mouth 00 :00 left ankle, every 6 initial hours as encounter needed for Pain traMADoL 2021-2021- No Closed 100mg Take 2 [facility] (ULTRAM) 50 -16 08-16 bimalleolar tablets by [facility] tablet 00:00: 00:00 fracture of mouth 00 :00 left ankle, every 6 initial hours as encounter needed for Pain traMADoL 2021- No Closed 100mg Take 2 [facility] (ULTRAM) 50 8-16 08-16 bimalleolar tablets by [facility] tablet 00:00: 00:00 fracture of mouth 00 :00 left ankle, every 6 initial hours as encounter needed for Pain traMADoL 2021- No Closed 100mg Take 2 [facility] (ULTRAM) 50 04-06 08-16 bimalleolar tablets by [facility] tablet 00:00: 00:00 fracture of mouth 00 :00 left ankle, every 6 initial hours as encounter needed for Pain traMADoL 2021- No Closed 100mg Take 2 [facility] (ULTRAM) 50 04-06-16 bimalleolar tablets by [facility] tablet 00:00: 00:00 fracture of mouth 00 :00 left ankle, every 6 initial hours as encounter needed for Pain traMADoL 2021- No Closed 100mg Take 2 [facility] (ULTRAM) 50 04-06-16 bimalleolar tablets by [facility] tablet 00:00: 00:00 fracture of mouth 00 :00 left ankle, every 6 initial hours as encounter needed for Pain traMADoL 2021- No Closed 100mg Take 2 [facility] (ULTRAM) 50 04-06-16 bimalleolar tablets by [facility] tablet 00:00: 00:00 fracture of mouth 00 :00 left ankle, every 6 initial hours as encounter needed for Pain traMADoL 2021- No Closed 100mg Take 2 [facility] (ULTRAM) 50 04-06-16 bimalleolar tablets by [facility] tablet 00:00: 00:00 fracture of mouth 00 :00 left ankle, every 6 initial hours as encounter needed for Pain traMADoL 2021- No Closed 100mg Take 2 [facility] ris (ULTRAM) 50 8-16 08-16 bimalleolar tablets by [facility] tablet 00:00: 00:00 fracture of mouth 00 :00 left ankle, every 6 initial hours as encounter needed for Pain traMADoL 2021- No Closed 100mg Take 2 [facility] ris (ULTRAM) 50 8 08-16 bimalleolar tablets by [facility] tablet 00:00: 00:00 fracture of mouth 00 :00 left ankle, every 6 initial hours as encounter needed for Pain traMADoL 2021- No Closed 100mg Take 2 [facility] ris (ULTRAM) 50 8-16 08-16 bimalleolar tablets by [facility] tablet 00:00: 00:00 fracture of mouth 00 :00 left ankle, every 6 initial hours as encounter needed for Pain traMADoL 2021- No Closed 100mg Take 2 [facility] ris (ULTRAM) 50 8-16 08-16 bimalleolar tablets by [facility] tablet 00:00: 00:00 fracture of mouth 00 :00 left ankle, every 6 initial hours as encounter needed for Pain traMADoL 2021- No Closed 100mg Take 2 [facility] ris (ULTRAM) 50 8-16 08-16 bimalleolar tablets by [facility] tablet 00:00: 00:00 fracture of mouth 00 :00 left ankle, every 6 initial hours as encounter needed for Pain traMADoL 2021- No Closed 100mg Take 2 [facility] ris (ULTRAM) 50 8-16 08-16 bimalleolar tablets by [facility] tablet 00:00: 00:00 fracture of mouth 00 :00 left ankle, every 6 initial hours as encounter needed for Pain traMADoL 2021- No Closed 100mg Take 2 [facility] ris (ULTRAM) 50 8- 08-16 bimalleolar tablets by [facility] tablet 00:00: 00:00 fracture of mouth 00 :00 left ankle, every 6 initial hours as encounter needed for Pain traMADoL 2021- No Closed 100mg Take 2 [facility] ris (ULTRAM) 50 8-16 08-16 bimalleolar tablets by [facility] tablet 00:00: 00:00 fracture of mouth 00 :00 left ankle, every 6 initial hours as encounter needed for Pain traMADoL 2021- No Closed 100mg Take 2 [facility] ris (ULTRAM) 50 8-16 08-16 bimalleolar tablets by [facility] tablet 00:00: 00:00 fracture of mouth 00 :00 left ankle, every 6 initial hours as encounter needed for Pain traMADoL 2021- No Closed 100mg Take 2 [facility] ris (ULTRAM) 50 8-16 08-16 bimalleolar tablets by [facility] tablet 00:00: 00:00 fracture of mouth 00 :00 left ankle, every 6 initial hours as encounter needed for Pain traMADoL 2021- No Closed 100mg Take 2 [facility] ris (ULTRAM) 50 8-16 08-16 bimalleolar tablets by [facility] tablet 00:00: 00:00 fracture of mouth 00 :00 left ankle, every 6 initial hours as encounter needed for Pain cyclobenzap 2021- No 10mg Take 10 mg UT rine 03-19 by mouth. Health (Flexeril) 12:38: 00:00 10 MG 51 :00 tablet cephalexin 2021- No [id number] 500mg Q.25D Take 1 UT (Keflex) 03-1906 [id number] capsule Healt [facility] 500 MG 00:00: 04:59 (500 mg capsule 00 :00 total) by mouth in the morning and 1 capsule (500 mg total) at noon and 1 capsule (500 mg total) in the evening and 1 capsule (500 mg total) before bedtime. Do all this for 7 days. acetaminoph 2021- No [id number] 1{tbl} Q6H Take 1 UT en-codeine 03-19 [id number] tablet by [facility] (Tylenol 00:00: 04:59 mouth #4) 300-60 00 :00 every 6 MG tablet (six) hours if needed for moderate pain for up to 5 days. acetaminoph 2021- No [id number] 1{tbl} Q6H Take 1 UT en-codeine 03-19 tablet by [facility] (Tylenol 00:00: 00:00 mouth #3) 300-30 00 :00 every 6 MG tablet (six) hours if needed for severe pain. cyclobenzap 2021- No [id number] 10mg Q.5D Take 1 UT rine 03-19 tablet (10 Health (Flexeril) 00:00: 00:00 mg total) 10 MG 00 :00 by mouth 2 tablet (two) times a day if needed for muscle spasms for up to 20 days. [place] 5/325 Yes 1 tab, PO, Memoria oral tablet 7-27 Q6H, PRN l 02:25: Pain, X 5 Nicholas 00 day, # 19 tab, 0 Refill(s), Pharmacy: [facility] #[id number], 167.64, cm, 03/16/22 17:23:00 CDT, Height, 93.5, kg, 03/16/22 17:23:00 CDT, Weight [place] 5/325 2022-0 Yes 1 tab, PO, Memoria oral tablet 7-27 Q6H, PRN l 02:25: Pain, X 5 Phil Campbell 00 day, # 19 tab, 0 Refill(s), Pharmacy: [facility] #[id number], 167.64, cm, 03/16/22 17:23:00 CDT, Height, 93.5, kg, 03/16/22 17:23:00 CDT, Weight [place] 5/325 2021-0 Yes 1 tab, PO, Memoria oral tablet 7-27 Q6H, PRN l 02:25: Pain, X 5 Phil Campbell 00 day, # 19 tab, 0 Refill(s), Pharmacy: [facility] #[id number], 167.64, cm, 03/16/22 17:23:00 CDT, Height, 93.5, kg, 03/16/22 17:23:00 CDT, Weight [place] 5/325 2021-0 Yes 1 tab, PO, Memoria oral tablet 7-27 Q6H, PRN l 02:25: Pain, X 5 Phil Campbell 00 day, # 19 tab, 0 Refill(s), Pharmacy: [facility] #[id number], 167.64, cm, 03/16/22 17:23:00 CDT, Height, 93.5, kg, 03/16/22 17:23:00 CDT, Weight [place] 5/325 2-0 Yes 1 tab, PO, Memoria oral tablet 7-27 Q6H, PRN l 02:25: Pain, X 5 Phil Campbell 00 day, # 19 tab, 0 Refill(s), Pharmacy: [facility] #[id number], 167.64, cm, 03/16/22 17:23:00 CDT, Height, 93.5, kg, 03/16/22 17:23:00 CDT, Weight [place] 5/325 2022-0 Yes 1 tab, PO, Memoria oral tablet 7-27 Q6H, PRN l 02:25: Pain, X 5 Nicholas 00 day, # 19 tab, 0 Refill(s), Pharmacy: [facility] #[id number], 167.64, cm, 03/16/22 17:23:00 CDT, Height, 93.5, kg, 03/16/22 17:23:00 CDT, Weight [place] [facility] 0 Yes 1 tab, PO, Memoria oral tablet 7-27 Q6H, PRN l 02:25: Pain, X 5 Phil Campbell 00 day, # 19 tab, 0 Refill(s), Pharmacy: [facility] #[id number], 167.64, cm, 03/16/22 17:23:00 CDT, Height, 93.5, kg, 03/16/22 17:23:00 CDT, Weight [place] [facility] 0 Yes 1 tab, PO, Memoria oral tablet 7- Q6H, PRN l 02:25: Pain, X 5 Nicholas 00 day, # 19 tab, 0 Refill(s), Pharmacy: [facility] #[id number], 167.64, cm, 03/16/22 17:23:00 CDT, Height, 93.5, kg, 03/16/22 17:23:00 CDT, Weight [place] [facility] 0 Yes 1 tab, PO, Memoria oral tablet 7- Q6H, PRN l 02:25: Pain, X 5 Phil Campbell 00 day, # 19 tab, 0 Refill(s), Pharmacy: [facility] #[id number], 167.64, cm, 03/16/22 17:23:00 CDT, Height, 93.5, kg, 03/16/22 17:23:00 CDT, Weight [place] [facility] 0 Yes 1 tab, PO, Memoria oral tablet 7-27 Q6H, PRN l 02:25: Pain, X 5 Nicholas 00 day, # 19 tab, 0 Refill(s), Pharmacy: [facility] #[id number], 167.64, cm, 03/16/22 17:23:00 CDT, Height, 93.5, kg, 03/16/22 17:23:00 CDT, Weight [place] 5/325 2021-0 Yes 1 tab, PO, Memoria oral tablet 7-27 Q6H, PRN l 02:25: Pain, X 5 Nicholas 00 day, # 19 tab, 0 Refill(s), Pharmacy: [facility] #[id number], 167.64, cm, 03/16/22 17:23:00 CDT, Height, 93.5, kg, 03/16/22 17:23:00 CDT, Weight Omnipaque 2021-0 No 85 mL, Memori a 350 7-27 Route: l injectable 02:00: IVP, Nicholas solution 00 Dosing Weight 93.5, kg, ONCALL, Start date: 03/16/22 21:00:00 CDT, Duration: 1 doses or times Omnipaque 2022-0 No 85 mL, Memori a 350 7-27 Route: l injectable 02:00: IVP, Phil Campbell solution 00 Dosing Weight 93.5, kg, ONCALL, Start date: 03/16/22 21:00:00 CDT, Duration: 1 doses or times Omnipaque 2022-0 No 85 mL, Memori a 350 7-27 Route: l injectable 02:00: IVP, Nicholas solution 00 Dosing Weight 93.5, kg, ONCALL, Start date: 03/16/22 21:00:00 CDT, Duration: 1 doses or times Omnipaque 2022-0 No 85 mL, Memori a 350 7-27 Route: l injectable 02:00: IVP, Nicholas solution 00 Dosing Weight 93.5, kg, ONCALL, Start date: 03/16/22 21:00:00 CDT, Duration: 1 doses or times Omnipaque 2022-0 No 85 mL, Memori a 350 7-27 Route: l injectable 02:00: IVP, Nicholas solution 00 Dosing Weight 93.5, kg, ONCALL, Start date: 03/16/22 21:00:00 CDT, Duration: 1 doses or times Omnipaque 2022-0 No 85 mL, Memori a 350 7-27 Route: l injectable 02:00: IVP, Phil Campbell solution 00 Dosing Weight 93.5, kg, ONCALL, Start date: 03/16/22 21:00:00 CDT, Duration: 1 doses or times Omnipaque 2022-0 No 85 mL, Memori a 350 7-27 Route: l injectable 02:00: IVP, Nicholas solution 00 Dosing Weight 93.5, kg, ONCALL, Start date: 03/16/22 21:00:00 CDT, Duration: 1 doses or times Omnipaque 2022-0 No 85 mL, Memori a 350 7-27 Route: l injectable 02:00: IVP, Nicholas solution 00 Dosing Weight 93.5, kg, ONCALL, Start date: 03/16/22 21:00:00 CDT, Duration: 1 doses or times Omnipaque 2022-0 No 85 mL, Memori a 350 7-27 Route: l injectable 02:00: IVP, Nicholas solution 00 Dosing Weight 93.5, kg, ONCALL, Start date: 03/16/22 21:00:00 CDT, Duration: 1 doses or times Omnipaque 2022-0 No 85 mL, Memori a 350 7-27 Route: l injectable 02:00: IVP, Nicholas solution 00 Dosing Weight 93.5, kg, ONCALL, Start date: 03/16/22 21:00:00 CDT, Duration: 1 doses or times Omnipaque 2022-0 No 85 mL, Memori a 350 7-27 Route: l injectable 02:00: IVP, Phil Campbell solution 00 Dosing Weight 93.5, kg, ONCALL, Start date: 03/16/22 21:00:00 CDT, Duration: 1 doses or times morphine 0 No Notes: Memoria Sulfate 7-26 (Same l 22:31: as:MORPhin Phil Campbell 00 e Sulfate) ondansetron No Notes: Kelby lisa 7-26 (Same as: l 22:31: Zofran) Nicholas 00 MEDICATION WASTE Product Size: 4 mg Product Wasted: ___ mg morphine No Notes: [facility]oria Sulfate 7-26 (Same l 22:31: as:MORPhin Phil Campbell 00 e Sulfate) ondansetron 2021-0 No Notes: Kelby lisa 7-26 (Same as: l 22:31: Zofran) Nicholas 00 MEDICATION WASTE Product Size: 4 mg Product Wasted: ___ mg morphine 2021-0 No Notes: [facility] Sulfate 7-26 (Same l 22:31: as:MORPhin Phil Campbell 00 e Sulfate) ondansetron 0 No Notes: Kelby lisa 7-26 (Same as: l 22:31: Zofran) Nicholas 00 MEDICATION WASTE Product Size: 4 mg Product Wasted: ___ mg morphine 2021-0 No Notes: [facility] Sulfate 7-26 (Same l 22:31: as:MORPhin Nicholas 00 e Sulfate) ondansetron 0 No Notes: Kelby lisa 7-26 (Same as: l 22:31: Zofran) Nicholas 00 MEDICATION WASTE Product Size: 4 mg Product Wasted: ___ mg morphine 2021-0 No Notes: [facility] Sulfate 7-26 (Same l 22:31: as:MORPhin Nicholas 00 e Sulfate) ondansetron No Notes: Kelby lisa 7-26 (Same as: l 22:31: Zofran) Nicholas 00 MEDICATION WASTE Product Size: 4 mg Product Wasted: ___ mg morphine 2021-0 No Notes: [facility] Sulfate 7-26 (Same l 22:31: as:MORPhin Nicholas 00 e Sulfate) ondansetron 0 No Notes: Kelby lisa 7-26 (Same as: l 22:31: Zofran) Nicholas 00 MEDICATION WASTE Product Size: 4 mg Product Wasted: ___ mg morphine 2021-0 No Notes: Memoria Sulfate 7-26 (Same l 22:31: as:MORPhin Phil Campbell 00 e Sulfate) ondansetron 2021-0 No Notes: Kelby lisa 7-26 (Same as: l 22:31: Zofran) Nicholas 00 MEDICATION WASTE Product Size: 4 mg Product Wasted: ___ mg morphine 2021-0 No Notes: Memoria Sulfate 7-26 (Same l 22:31: as:MORPhin Phil Campbell 00 e Sulfate) ondansetron 2021-0 No Notes: Kelby lisa 7-26 (Same as: l 22:31: Zofran) Nicholas 00 MEDICATION WASTE Product Size: 4 mg Product Wasted: ___ mg morphine 2021-0 No Notes: Memoria Sulfate 7-26 (Same l 22:31: as:MORPhin Phil Campbell 00 e Sulfate) ondansetron No Notes: Kelby lisa 7-26 (Same as: l 22:31: Zofran) Nicholas 00 MEDICATION WASTE Product Size: 4 mg Product Wasted: ___ mg morphine 2021-0 No Notes: [facility]oria Sulfate 7-26 (Same l 22:31: as:MORPhin Phil Campbell 00 e Sulfate) ondansetron No Notes: Kelby lisa 7-26 (Same as: l 22:31: Zofran) Nicholas 00 MEDICATION WASTE Product Size: 4 mg Product Wasted: ___ mg morphine 2021- No Notes: [facility]oria Sulfate 7-26 (Same l 22:31: as:MORPhin Phil Campbell 00 e Sulfate) ondansetron No Notes: Kelby lisa 7-26 (Same as: l 22:31: Zofran) Nicholas 00 MEDICATION WASTE Product Size: 4 mg Product Wasted: ___ mg Flexeril 5 0 Yes 5 mg = 1 Mem oria mg oral 7-21 tab, PO, l tablet 03:06: TID, PRN Phil Campbell 00 Muscle Spasms, X 7 day, # 14 tab, 0 Refill(s), Pharmacy: [facility] #[id number], 165.1, cm, 03/10/22 15:20:00 CDT, Height, 81.818, kg, 03/10/22 15:20:00 CDT, Weight Flexeril 5 2021-0 Yes 5 mg = 1 Mem oria mg oral 7-21 tab, PO, l tablet 03:06: TID, PRN Phil Campbell 00 Muscle Spasms, X 7 day, # 14 tab, 0 Refill(s), Pharmacy: [facility] #[id number], 165.1, cm, 03/10/22 15:20:00 CDT, Height, 81.818, kg, 03/10/22 15:20:00 CDT, Weight Flexeril 5 2021-0 Yes 5 mg = 1 Mem oria mg oral 7-21 tab, PO, l tablet 03:06: TID, PRN Phil Campbell 00 Muscle Spasms, X 7 day, # 14 tab, 0 Refill(s), [id number], 165.1, cm, 03/10/22 15:20:00 CDT, Height, 81.818, kg, 03/10/22 15:20:00 CDT, Weight Flexeril 5 2021-0 Yes 5 mg = 1 Mem oria mg oral 7-21 tab, PO, l tablet 03:06: TID, PRN Phil Campbell 00 Muscle Spasms, X 7 day, # 14 tab, 0 Refill(s), [id number], 165.1, cm, 03/10/22 15:20:00 CDT, Height, 81.818, kg, 03/10/22 15:20:00 CDT, Weight Flexeril 5 2021-0 Yes 5 mg = 1 Mem oria mg oral 7-21 tab, PO, l tablet 03:06: TID, PRN Nicholas 00 Muscle Spasms, X 7 day, # 14 tab, 0 Refill(s), [id number], 165.1, cm, 03/10/22 15:20:00 CDT, Height, 81.818, kg, 03/10/22 15:20:00 CDT, Weight Flexeril 5 2021-0 Yes 5 mg = 1 Mem oria mg oral 7-21 tab, PO, l tablet 03:06: TID, PRN Phil Campbell 00 Muscle Spasms, X 7 day, # 14 tab, 0 Refill(s), Pharmacy: [facility] #[id number], 165.1, cm, 03/10/22 15:20:00 CDT, Height, 81.818, kg, 03/10/22 15:20:00 CDT, Weight Flexeril 5 2021-0 Yes 5 mg = 1 Mem oria mg oral 7-21 tab, PO, l tablet 03:06: TID, PRN Phil Campbell 00 Muscle Spasms, X 7 day, # 14 tab, 0 Refill(s), Pharmacy: [facility] #[id number], 165.1, cm, 03/10/22 15:20:00 CDT, Height, 81.818, kg, 03/10/22 15:20:00 CDT, Weight Flexeril 5 2021-0 Yes 5 mg = 1 Mem oria mg oral 7-21 tab, PO, l tablet 03:06: TID, PRN Phil Campbell 00 Muscle Spasms, X 7 day, # 14 tab, 0 Refill(s), [id number], 165.1, cm, 03/10/22 15:20:00 CDT, Height, 81.818, kg, 03/10/22 15:20:00 CDT, Weight Flexeril 5 2021-0 Yes 5 mg = 1 Mem oria mg oral 7-21 tab, PO, l tablet 03:06: TID, PRN Phil Campbell 00 Muscle Spasms, X 7 day, # 14 tab, 0 Refill(s), [id number], 165.1, cm, 03/10/22 15:20:00 CDT, Height, 81.818, kg, 03/10/22 15:20:00 CDT, Weight Flexeril 5 2021-0 Yes 5 mg = 1 Mem oria mg oral 7-21 tab, PO, l tablet 03:06: TID, PRN Phil Campbell 00 Muscle Spasms, X 7 day, # 14 tab, 0 Refill(s), [id number], 165.1, cm, 03/10/22 15:20:00 CDT, Height, 81.818, kg, 03/10/22 15:20:00 CDT, Weight Flexeril 5 2021-0 Yes 5 mg = 1 Mem oria mg oral 7-21 tab, PO, l tablet 03:06: TID, PRN Phil Campbell 00 Muscle Spasms, X 7 day, # 14 tab, 0 Refill(s), [facility][id number], 165.1, cm, 03/10/22 15:20:00 CDT, Height, 81.818, kg, 03/10/22 15:20:00 CDT, Weight Tylenol 2021-0 Yes 1 tab, PO, Kelby lisa with 7-21 Q6H, PRN l Codeine #3 02:35: Pain, X 7 He rmann oral tablet 00 day, # 12 tab, 0 Refill(s), Pharmacy: [facility] #[id number], 165.1, cm, 03/10/22 15:20:00 CDT, Height, 81.818, kg, 03/10/22 15:20:00 CDT, Weight chlordiazeP 2021-0 Yes See Memori a OXIDE 25 mg 7-21 Instructio l oral 02:35: ns, -Take Phil Campbell capsule 00 2 pills (Librium) twice a day for 2 days -Then take 1 pill 3 times a day for 3 days -Then take 1 pill 2 times a day for 3 days -Then take 1 pill once a day for 3 days -Then take 1 pill every other day for 3 days, # 28 cap, 0 Refill(s.. . Tylenol 2021-0 Yes 1 tab, PO, Kelby lisa with 7-21 Q6H, PRN l Codeine #3 02:35: Pain, X 7 He rmann oral tablet 00 day, # 12 tab, 0 Refill(s), Pharmacy: [facility] #[id number], 165.1, cm, 03/10/22 15:20:00 CDT, Height, 81.818, kg, 03/10/22 15:20:00 CDT, Weight chlordiazeP 2021-0 Yes See Memori a OXIDE 25 mg 7-21 Instructio l oral 02:35: ns, -Take Nicholas capsule 00 2 pills (Librium) twice a day for 2 days -Then take 1 pill 3 times a day for 3 days -Then take 1 pill 2 times a day for 3 days -Then take 1 pill once a day for 3 days -Then take 1 pill every other day for 3 days, # 28 cap, 0 Refill(s.. . Tylenol 2-0 Yes 1 tab, PO, Kelby lisa with 7-21 Q6H, PRN l Codeine #3 02:35: Pain, X 7 He rmann oral tablet 00 day, # 12 tab, 0 Refill(s), Pharmacy: [facility] #[id number], 165.1, cm, 03/10/22 15:20:00 CDT, Height, 81.818, kg, 03/10/22 15:20:00 CDT, Weight chlordiazeP 2021-0 Yes See Memori a OXIDE 25 mg 7-21 Instructio l oral 02:35: ns, -Take Phil Campbell capsule 00 2 pills (Librium) twice a day for 2 days -Then take 1 pill 3 times a day for 3 days -Then take 1 pill 2 times a day for 3 days -Then take 1 pill once a day for 3 days -Then take 1 pill every other day for 3 days, # 28 cap, 0 Refill(s.. . Tylenol 2021-0 Yes 1 tab, PO, Kelby lisa with 7-21 Q6H, PRN l Codeine #3 02:35: Pain, X 7 He rmann oral tablet 00 day, # 12 tab, 0 Refill(s), Pharmacy: [facility] #[id number], 165.1, cm, 03/10/22 15:20:00 CDT, Height, 81.818, kg, 03/10/22 15:20:00 CDT, Weight chlordiazeP 2021-0 Yes See Memori a OXIDE 25 mg 7-21 Instructio l oral 02:35: ns, -Take Phil Campbell capsule 00 2 pills (Librium) twice a day for 2 days -Then take 1 pill 3 times a day for 3 days -Then take 1 pill 2 times a day for 3 days -Then take 1 pill once a day for 3 days -Then take 1 pill every other day for 3 days, # 28 cap, 0 Refill(s.. . Tylenol 2021-0 Yes 1 tab, PO, Kelby lisa with 7-21 Q6H, PRN l Codeine #3 02:35: Pain, X 7 He rmann oral tablet 00 day, # 12 tab, 0 Refill(s), Pharmacy: [facility] #[id number], 165.1, cm, 03/10/22 15:20:00 CDT, Height, 81.818, kg, 03/10/22 15:20:00 CDT, Weight chlordiazeP 2021-0 Yes See Memori a OXIDE 25 mg 7-21 Instructio l oral 02:35: ns, -Take Phil Campbell capsule 00 2 pills (Librium) twice a day for 2 days -Then take 1 pill 3 times a day for 3 days -Then take 1 pill 2 times a day for 3 days -Then take 1 pill once a day for 3 days -Then take 1 pill every other day for 3 days, # 28 cap, 0 Refill(s.. . Tylenol 2021-0 Yes 1 tab, PO, Kelby lisa with 7-21 Q6H, PRN l Codeine #3 02:35: Pain, X 7 He rmann oral tablet 00 day, # 12 tab, 0 Refill(s), Pharmacy: [facility] #[id number], 165.1, cm, 03/10/22 15:20:00 CDT, Height, 81.818, kg, 03/10/22 15:20:00 CDT, Weight chlordiazeP 0 Yes See Memori a OXIDE 25 mg 7-21 Instructio l oral 02:35: ns, -Take Nicholas capsule 00 2 pills (Librium) twice a day for 2 days -Then take 1 pill 3 times a day for 3 days -Then take 1 pill 2 times a day for 3 days -Then take 1 pill once a day for 3 days -Then take 1 pill every other day for 3 days, # 28 cap, 0 Refill(s.. . Tylenol 2021-0 Yes 1 tab, PO, Kelby lisa with 7-21 Q6H, PRN l Codeine #3 02:35: Pain, X 7 He rmann oral tablet 00 day, # 12 tab, 0 Refill(s), [id number], 165.1, cm, 03/10/22 15:20:00 CDT, Height, 81.818, kg, 03/10/22 15:20:00 CDT, Weight chlordiazeP 2021-0 Yes See Memori a OXIDE 25 mg 7-21 Instructio l oral 02:35: ns, -Take Nicholas capsule 00 2 pills (Librium) twice a day for 2 days -Then take 1 pill 3 times a day for 3 days -Then take 1 pill 2 times a day for 3 days -Then take 1 pill once a day for 3 days -Then take 1 pill every other day for 3 days, # 28 cap, 0 Refill(s.. . Tylenol 2-0 Yes 1 tab, PO, Kelby lisa with 7-21 Q6H, PRN l Codeine #3 02:35: Pain, X 7 He rmann oral tablet 00 day, # 12 tab, 0 Refill(s), Pharmacy: [facility] #[id number], 165.1, cm, 03/10/22 15:20:00 CDT, Height, 81.818, kg, 03/10/22 15:20:00 CDT, Weight chlordiazeP 2021-0 Yes See Memori a OXIDE 25 mg 7-21 Instructio l oral 02:35: ns, -Take Phil Campbell capsule 00 2 pills (Librium) twice a day for 2 days -Then take 1 pill 3 times a day for 3 days -Then take 1 pill 2 times a day for 3 days -Then take 1 pill once a day for 3 days -Then take 1 pill every other day for 3 days, # 28 cap, 0 Refill(s.. . Tylenol 2-0 Yes 1 tab, PO, Kelby lisa with 7-21 Q6H, PRN l Codeine #3 02:35: Pain, X 7 He rmann oral tablet 00 day, # 12 tab, 0 Refill(s), [id number], 165.1, cm, 03/10/22 15:20:00 CDT, Height, 81.818, kg, 03/10/22 15:20:00 CDT, Weight chlordiazeP 2021-0 Yes See [facility] OXIDE 25 mg 7-21 Instructio l oral 02:35: ns, -Take Phil Campbell capsule 00 2 pills (Librium) twice a day for 2 days -Then take 1 pill 3 times a day for 3 days -Then take 1 pill 2 times a day for 3 days -Then take 1 pill once a day for 3 days -Then take 1 pill every other day for 3 days, # 28 cap, 0 Refill(s.. . Tylenol 2-0 Yes 1 tab, PO, Kelby lisa with 7-21 Q6H, PRN l Codeine #3 02:35: Pain, X 7 He rmann oral tablet 00 day, # 12 tab, 0 Refill(s), Pharmacy: [id number], 165.1, cm, 03/10/22 15:20:00 CDT, Height, 81.818, kg, 03/10/22 15:20:00 CDT, Weight [email or web address] 2021-0 Yes See Memori a OXIDE 25 mg 7- Instructio l oral 02:35: ns, -Take Nicholas capsule 00 2 pills (Librium) twice a day for 2 days -Then take 1 pill 3 times a day for 3 days -Then take 1 pill 2 times a day for 3 days -Then take 1 pill once a day for 3 days -Then take 1 pill every other day for 3 days, # 28 cap, 0 Refill(s.. . Tylenol 2021-0 Yes 1 tab, PO, Kelby lisa with - Q6H, PRN l Codeine #3 02:35: Pain, X 7 He rmann oral tablet 00 day, # 12 tab, 0 Refill(s), Pharmacy: [id number] #[id number], 165.1, cm, 03/10/22 15:20:00 CDT, Height, 81.818, kg, 03/10/22 15:20:00 CDT, Weight chlordiazeP 2021-0 Yes See Memori a OXIDE 25 mg - Instructio l oral 02:35: ns, -Take Phil Campbell capsule 00 2 pills (Librium) twice a day for 2 days -Then take 1 pill 3 times a day for 3 days -Then take 1 pill 2 times a day for 3 days -Then take 1 pill once a day for 3 days -Then take 1 pill every other day for 3 days, # 28 cap, 0 Refill(s.. . propofol 2021-0 No 80 mg, Memoria 7- Route: l 01:18: IVP, ONCE, Nicholas Dosing Weight 81.818, kg, Priority: STAT, Start date: 03/10/22 20:18:00 CDT, Stop date: 03/10/22 20:18:00 CDT morphine 2021-0 No 4 mg, Memoria Sulfate - Route: l 01:18: IVP, ONCE, Nicholas Dosing Weight 81.818, kg, Priority: STAT, Start date: 03/10/22 20:18:00 CDT, Stop date: 03/10/22 20:18:00 CDT cyclobenzap 2022-0 No 10 mg, Kelby lisa rine 7-21 Route: PO, l 01:18: Drug form: Phil Campbell 00 TAB, ONCE, Dosing Weight 81.818, kg, Priority: STAT, Start date: 03/10/22 20:18:00 CDT, Stop date: 03/10/22 20:18:00 CDT propofol 2022-0 No 80 mg, Memoria 7-21 Route: l 01:18: IVP, ONCE, Dosing Weight 81.818, kg, Priority: STAT, Start date: 03/10/22 20:18:00 CDT, Stop date: 03/10/22 20:18:00 CDT morphine 2022-0 No 4 mg, Memoria Sulfate 7- Route: l 01:18: IVP, ONCE, Dosing Weight 81.818, kg, Priority: STAT, Start date: 03/10/22 20:18:00 CDT, Stop date: 03/10/22 20:18:00 CDT cyclobenzap 2022-0 No 10 mg, Kelby lisa rine 7- Route: PO, l 01:18: Drug form: Nicholas 00 TAB, ONCE, Dosing Weight 81.818, kg, Priority: STAT, Start date: 03/10/22 20:18:00 CDT, Stop date: 03/10/22 20:18:00 CDT propofol 2022-0 No 80 mg, Memoria 7-21 Route: l 01:18: IVP, ONCE, Dosing Weight 81.818, kg, Priority: STAT, Start date: 03/10/22 20:18:00 CDT, Stop date: 03/10/22 20:18:00 CDT morphine 2022-0 No 4 mg, Memoria Sulfate 7-21 Route: l 01:18: IVP, ONCE, Dosing Weight 81.818, kg, Priority: STAT, Start date: 03/10/22 20:18:00 CDT, Stop date: 03/10/22 20:18:00 CDT cyclobenzap 2022-0 No 10 mg, Kelby lisa rine 7-21 Route: PO, l 01:18: Drug form: Phil Campbell 00 TAB, ONCE, Dosing Weight 81.818, kg, Priority: STAT, Start date: 03/10/22 20:18:00 CDT, Stop date: 03/10/22 20:18:00 CDT propofol 2022-0 No 80 mg, Memoria 7-21 Route: l 01:18: IVP, ONCE, Dosing Weight 81.818, kg, Priority: STAT, Start date: 03/10/22 20:18:00 CDT, Stop date: 03/10/22 20:18:00 CDT morphine 2022-0 No 4 mg, Memoria Sulfate 7- Route: l 01:18: IVP, ONCE, Dosing Weight 81.818, kg, Priority: STAT, Start date: 03/10/22 20:18:00 CDT, Stop date: 03/10/22 20:18:00 CDT cyclobenzap 2022-0 No 10 mg, Kelby lisa rine 7- Route: PO, l 01:18: Drug form: Nicholas 00 TAB, ONCE, Dosing Weight 81.818, kg, Priority: STAT, Start date: 03/10/22 20:18:00 CDT, Stop date: 03/10/22 20:18:00 CDT propofol 2022-0 No 80 mg, Memoria 7-21 Route: l 01:18: IVP, ONCE, Dosing Weight 81.818, kg, Priority: STAT, Start date: 03/10/22 20:18:00 CDT, Stop date: 03/10/22 20:18:00 CDT morphine 2022-0 No 4 mg, Memoria Sulfate 7-21 Route: l 01:18: IVP, ONCE, Dosing Weight 81.818, kg, Priority: STAT, Start date: 03/10/22 20:18:00 CDT, Stop date: 03/10/22 20:18:00 CDT cyclobenzap 2022-0 No 10 mg, Kelby lisa rine 7-21 Route: PO, l 01:18: Drug form: Phil Campbell 00 TAB, ONCE, Dosing Weight 81.818, kg, Priority: STAT, Start date: 03/10/22 20:18:00 CDT, Stop date: 03/10/22 20:18:00 CDT propofol 2022-0 No 80 mg, Memoria 7-21 Route: l 01:18: IVP, ONCE, Dosing Weight 81.818, kg, Priority: STAT, Start date: 03/10/22 20:18:00 CDT, Stop date: 03/10/22 20:18:00 CDT morphine 2022-0 No 4 mg, Memoria Sulfate 7-21 Route: l 01:18: IVP, ONCE, Dosing Weight 81.818, kg, Priority: STAT, Start date: 03/10/22 20:18:00 CDT, Stop date: 03/10/22 20:18:00 CDT cyclobenzap 2022-0 No 10 mg, Kelby lisa rine 7-21 Route: PO, l 01:18: Drug form: Nicholas 00 TAB, ONCE, Dosing Weight 81.818, kg, Priority: STAT, Start date: 03/10/22 20:18:00 CDT, Stop date: 03/10/22 20:18:00 CDT propofol 2022-0 No 80 mg, Memoria 7-21 Route: l 01:18: IVP, ONCE, Dosing Weight 81.818, kg, Priority: STAT, Start date: 03/10/22 20:18:00 CDT, Stop date: 03/10/22 20:18:00 CDT morphine 2022-0 No 4 mg, Memoria Sulfate 7-21 Route: l 01:18: IVP, ONCE, Dosing Weight 81.818, kg, Priority: STAT, Start date: 03/10/22 20:18:00 CDT, Stop date: 03/10/22 20:18:00 CDT cyclobenzap 2022-0 No 10 mg, Kelby lisa rine 7-21 Route: PO, l 01:18: Drug form: Phil Campbell 00 TAB, ONCE, Dosing Weight 81.818, kg, Priority: STAT, Start date: 03/10/22 20:18:00 CDT, Stop date: 03/10/22 20:18:00 CDT propofol 2022-0 No 80 mg, Memoria 7-21 Route: l 01:18: IVP, ONCE, Dosing Weight 81.818, kg, Priority: STAT, Start date: 03/10/22 20:18:00 CDT, Stop date: 03/10/22 20:18:00 CDT morphine 2022-0 No 4 mg, Memoria Sulfate 7- Route: l 01:18: IVP, ONCE, Dosing Weight 81.818, kg, Priority: STAT, Start date: 03/10/22 20:18:00 CDT, Stop date: 03/10/22 20:18:00 CDT cyclobenzap 2022-0 No 10 mg, Kelby lisa rine 7- Route: PO, l 01:18: Drug form: Phil Campbell 00 TAB, ONCE, Dosing Weight 81.818, kg, Priority: STAT, Start date: 03/10/22 20:18:00 CDT, Stop date: 03/10/22 20:18:00 CDT propofol 2022-0 No 80 mg, Memoria 7- Route: l 01:18: IVP, ONCE, Dosing Weight 81.818, kg, Priority: STAT, Start date: 03/10/22 20:18:00 CDT, Stop date: 03/10/22 20:18:00 CDT morphine 2022-0 No 4 mg, Memoria Sulfate 7- Route: l 01:18: IVP, ONCE, Dosing Weight 81.818, kg, Priority: STAT, Start date: 03/10/22 20:18:00 CDT, Stop date: 03/10/22 20:18:00 CDT cyclobenzap 2022-0 No 10 mg, Kelby lisa rine 7- Route: PO, l 01:18: Drug form: Nicholas 00 TAB, ONCE, Dosing Weight 81.818, kg, Priority: STAT, Start date: 03/10/22 20:18:00 CDT, Stop date: 03/10/22 20:18:00 CDT propofol 2022-0 No 80 mg, Memoria 7-21 Route: l 01:18: IVP, ONCE, Dosing Weight 81.818, kg, Priority: STAT, Start date: 03/10/22 20:18:00 CDT, Stop date: 03/10/22 20:18:00 CDT morphine 2-0 No 4 mg, Memoria Sulfate 03-11 Route: l 01:18: IVP, ONCE, Dosing Weight 81.818, kg, Priority: STAT, Start date: 03/10/22 20:18:00 CDT, Stop date: 03/10/22 20:18:00 CDT cyclobenzap 2-0 No 10 mg, Kelby lisa rine 03-11 Route: PO, l 01:18: Drug form: Nicholas 00 TAB, ONCE, Dosing Weight 81.818, kg, Priority: STAT, Start date: 03/10/22 20:18:00 CDT, Stop date: 03/10/22 20:18:00 CDT propofol 2-0 No 80 mg, Memoria 03-11 Route: l 01:18: IVP, ONCE, Dosing Weight 81.818, kg, Priority: STAT, Start date: 03/10/22 20:18:00 CDT, Stop date: 03/10/22 20:18:00 CDT morphine 2-0 No 4 mg, Memoria Sulfate 03-11 Route: l 01:18: IVP, ONCE, Dosing Weight 81.818, kg, Priority: STAT, Start date: 03/10/22 20:18:00 CDT, Stop date: 03/10/22 20:18:00 CDT cyclobenzap 2021-0 No 10 mg, Kelby lisa rine 03-11 Route: PO, l 01:18: Drug form: Nicholas 00 TAB, ONCE, Dosing Weight 81.818, kg, Priority: STAT, Start date: 03/10/22 20:18:00 CDT, Stop date: 03/10/22 20:18:00 CDT chlordiazeP 2021-0 Yes [place] OXIDE 03-11 Health (Librium) 00:00: 25 MG 00 capsule Ativan 2021-0 No 1 mg, Memoria 03-10 Route: l 23:54: IVP, Drug form: INJ, ONCE, Dosing Weight 81.818, kg, Priority: STAT, Start date: 03/10/22 18:54:00 CDT, Stop date: 03/10/22 18:54:00 CDT Ativan 2-0 No 1 mg, Memoria 7-20 Route: l 23:54: IVP, Drug Phil Campbell 00 form: INJ, ONCE, Dosing Weight 81.818, kg, Priority: STAT, Start date: 03/10/22 18:54:00 CDT, Stop date: 03/10/22 18:54:00 CDT Ativan 2-0 No 1 mg, Memoria 7-20 Route: l 23:54: IVP, Drug Nicholas 00 form: INJ, ONCE, Dosing Weight 81.818, kg, Priority: STAT, Start date: 03/10/22 18:54:00 CDT, Stop date: 03/10/22 18:54:00 CDT Ativan 2021-0 No 1 mg, Memoria 7-20 Route: l 23:54: IVP, Drug Phil Campbell 00 form: INJ, ONCE, Dosing Weight 81.818, kg, Priority: STAT, Start date: 03/10/22 18:54:00 CDT, Stop date: 03/10/22 18:54:00 CDT Ativan 2021-0 No 1 mg, Memoria 7-20 Route: l 23:54: IVP, Drug Nicholas 00 form: INJ, ONCE, Dosing Weight 81.818, kg, Priority: STAT, Start date: 03/10/22 18:54:00 CDT, Stop date: 03/10/22 18:54:00 CDT Ativan 2-0 No 1 mg, Memoria 7-20 Route: l 23:54: IVP, Drug Nicholas 00 form: INJ, ONCE, Dosing Weight 81.818, kg, Priority: STAT, Start date: 03/10/22 18:54:00 CDT, Stop date: 03/10/22 18:54:00 CDT Ativan 2021-0 No 1 mg, Memoria 7-20 Route: l 23:54: IVP, Drug Phil Campbell 00 form: INJ, ONCE, Dosing Weight 81.818, kg, Priority: STAT, Start date: 03/10/22 18:54:00 CDT, Stop date: 03/10/22 18:54:00 CDT Ativan 2-0 No 1 mg, Memoria 7-20 Route: l 23:54: IVP, Drug Phil Campbell 00 form: INJ, ONCE, Dosing Weight 81.818, kg, Priority: STAT, Start date: 03/10/22 18:54:00 CDT, Stop date: 03/10/22 18:54:00 CDT Ativan 2022-0 No 1 mg, Memoria 7-20 Route: l 23:54: IVP, Drug Nicholas 00 form: INJ, ONCE, Dosing Weight 81.818, kg, Priority: STAT, Start date: 03/10/22 18:54:00 CDT, Stop date: 03/10/22 18:54:00 CDT Ativan 2-0 No 1 mg, Memoria 7-20 Route: l 23:54: IVP, Drug Nicholas 00 form: INJ, ONCE, Dosing Weight 81.818, kg, Priority: STAT, Start date: 03/10/22 18:54:00 CDT, Stop date: 03/10/22 18:54:00 CDT Ativan 2-0 No 1 mg, Memoria 7-20 Route: l 23:54: IVP, Drug Nicholas 00 form: INJ, ONCE, Dosing Weight 81.818, kg, Priority: STAT, Start date: 03/10/22 18:54:00 CDT, Stop date: 03/10/22 18:54:00 CDT Dilaudid 2-0 No 1 mg, Memoria 7-20 Route: IV, l 21:52: ONCE, Nicholas 00 Dosing Weight 81.818, kg, Start date: 03/10/22 16:52:00 CDT, Stop date: 03/10/22 16:52:00 CDT Dilaudid 2-0 No 1 mg, Memoria 7-20 Route: IV, l 21:52: ONCE, Phil Campbell 00 Dosing Weight 81.818, kg, Start date: 03/10/22 16:52:00 CDT, Stop date: 03/10/22 16:52:00 CDT Dilaudid 2-0 No 1 mg, Memoria 7-20 Route: IV, l 21:52: ONCE, Nicholas 00 Dosing Weight 81.818, kg, Start date: 03/10/22 16:52:00 CDT, Stop date: 03/10/22 16:52:00 CDT Dilaudid 2022-0 No 1 mg, Memoria 7-20 Route: IV, l 21:52: ONCE, Phil Campbell 00 Dosing Weight 81.818, kg, Start date: 03/10/22 16:52:00 CDT, Stop date: 03/10/22 16:52:00 CDT Dilaudid 2022-0 No 1 mg, Memoria 7-20 Route: IV, l 21:52: ONCE, Nicholas 00 Dosing Weight 81.818, kg, Start date: 03/10/22 16:52:00 CDT, Stop date: 03/10/22 16:52:00 CDT Dilaudid 2022-0 No 1 mg, Memoria 7-20 Route: IV, l 21:52: ONCE, Phil Campbell 00 Dosing Weight 81.818, kg, Start date: 03/10/22 16:52:00 CDT, Stop date: 03/10/22 16:52:00 CDT Dilaudid 2022-0 No 1 mg, Memoria 7-20 Route: IV, l 21:52: ONCE, Dosing Weight 81.818, kg, Start date: 03/10/22 16:52:00 CDT, Stop date: 03/10/22 16:52:00 CDT Dilaudid 2022-0 No 1 mg, Memoria 7-20 Route: IV, l 21:52: ONCE, Phil Campbell 00 Dosing Weight 81.818, kg, Start date: 03/10/22 16:52:00 CDT, Stop date: 03/10/22 16:52:00 CDT Dilaudid 2022-0 No 1 mg, Memoria 7-20 Route: IV, l 21:52: ONCE, Nicholas 00 Dosing Weight 81.818, kg, Start date: 03/10/22 16:52:00 CDT, Stop date: 03/10/22 16:52:00 CDT Dilaudid 2022-0 No 1 mg, Memoria 7-20 Route: IV, l 21:52: ONCE, Dosing Weight 81.818, kg, Start date: 03/10/22 16:52:00 CDT, Stop date: 03/10/22 16:52:00 CDT Dilaudid 2022-0 No 1 mg, Memoria 7-20 Route: IV, l 21:52: ONCE, Phil Campbell 00 Dosing Weight 81.818, kg, Start date: 03/10/22 16:52:00 CDT, Stop date: 03/10/22 16:52:00 CDT morphine 2022-0 No 4 mg, Memoria Sulfate 7-20 Route: l 21:04: IVP, ONCE, Nicholas 00 Dosing Weight 81.818, kg, Priority: STAT, Start date: 03/10/22 16:04:00 CDT, Stop date: 03/10/22 16:04:00 CDT morphine 2022-0 No 4 mg, Memoria Sulfate 7-20 Route: l 21:04: IVP, ONCE, Phil Campbell 00 Dosing Weight 81.818, kg, Priority: STAT, Start date: 03/10/22 16:04:00 CDT, Stop date: 03/10/22 16:04:00 CDT morphine 2022-0 No 4 mg, Memoria Sulfate 7-20 Route: l 21:04: IVP, ONCE, Phil Campbell 00 Dosing Weight 81.818, kg, Priority: STAT, Start date: 03/10/22 16:04:00 CDT, Stop date: 03/10/22 16:04:00 CDT morphine 2022-0 No 4 mg, Memoria Sulfate 7-20 Route: l 21:04: IVP, ONCE, Dosing Weight 81.818, kg, Priority: STAT, Start date: 03/10/22 16:04:00 CDT, Stop date: 03/10/22 16:04:00 CDT morphine 2022-0 No 4 mg, Memoria Sulfate 7-20 Route: l 21:04: IVP, ONCE, Nicholas 00 Dosing Weight 81.818, kg, Priority: STAT, Start date: 03/10/22 16:04:00 CDT, Stop date: 03/10/22 16:04:00 CDT morphine 2022-0 No 4 mg, [facility]oria Sulfate 7-20 Route: l 21:04: IVP, ONCE, Dosing Weight 81.818, kg, Priority: STAT, Start date: 03/10/22 16:04:00 CDT, Stop date: 03/10/22 16:04:00 CDT morphine 2022-0 No 4 mg, Memoria Sulfate 7-20 Route: l 21:04: IVP, ONCE, Dosing Weight 81.818, kg, Priority: STAT, Start date: 03/10/22 16:04:00 CDT, Stop date: 03/10/22 16:04:00 CDT morphine 2022-0 No 4 mg, Memoria Sulfate 7-20 Route: l 21:04: IVP, ONCE, Dosing Weight 81.818, kg, Priority: STAT, Start date: 03/10/22 16:04:00 CDT, Stop date: 03/10/22 16:04:00 CDT morphine 2022-0 No 4 mg, [facility]oria Sulfate 7-20 Route: l 21:04: IVP, ONCE, Dosing Weight 81.818, kg, Priority: STAT, Start date: 03/10/22 16:04:00 CDT, Stop date: 03/10/22 16:04:00 CDT morphine 2022-0 No 4 mg, Memoria Sulfate 7-20 Route: l 21:04: IVP, ONCE, Dosing Weight 81.818, kg, Priority: STAT, Start date: 03/10/22 16:04:00 CDT, Stop date: 03/10/22 16:04:00 CDT morphine 2022-0 No 4 mg, Memoria Sulfate 7-20 Route: l 21:04: IVP, ONCE, Dosing Weight 81.818, kg, Priority: STAT, Start date: 03/10/22 16:04:00 CDT, Stop date: 03/10/22 16:04:00 CDT morphine 2022-0 No 4 mg, Memoria Sulfate 7-20 Route: l 20:41: IVP, ONCE, Dosing Weight 81.818, kg, Priority: STAT, Start date: 03/10/22 15:41:00 CDT, Stop date: 03/10/22 15:41:00 CDT Zofran 2022-0 No 4 mg, [facility] 7-20 Route: l 20:41: IVP, Drug form: INJ, ONCE, Dosing Weight 81.818, kg, Priority: STAT, Start date: 03/10/22 15:41:00 CDT, Stop date: 03/10/22 15:41:00 CDT morphine 2022-0 No 4 mg, [facility] Sulfate 7-20 Route: l 20:41: IVP, ONCE, Phil Campbell 00 Dosing Weight 81.818, kg, Priority: STAT, Start date: 03/10/22 15:41:00 CDT, Stop date: 03/10/22 15:41:00 CDT Zofran 2022-0 No 4 mg, [facility] 7-20 Route: l 20:41: IVP, Drug Phil Campbell form: INJ, ONCE, Dosing Weight 81.818, kg, Priority: STAT, Start date: 03/10/22 15:41:00 CDT, Stop date: 03/10/22 15:41:00 CDT morphine 2022-0 No 4 mg, [facility] Sulfate 7-20 Route: l 20:41: IVP, ONCE, Phil Campbell 00 Dosing Weight 81.818, kg, Priority: STAT, Start date: 03/10/22 15:41:00 CDT, Stop date: 03/10/22 15:41:00 CDT Zofran 2022-0 No 4 mg, [facility] 7-20 Route: l 20:41: IVP, Drug Nicholas form: INJ, ONCE, Dosing Weight 81.818, kg, Priority: STAT, Start date: 03/10/22 15:41:00 CDT, Stop date: 03/10/22 15:41:00 CDT morphine 2022-0 No 4 mg, [facility]oria Sulfate 7-20 Route: l 20:41: IVP, ONCE, Phil Campbell Dosing Weight 81.818, kg, Priority: STAT, Start date: 03/10/22 15:41:00 CDT, Stop date: 03/10/22 15:41:00 CDT Zofran 2022-0 No 4 mg, [facility] 7-20 Route: l 20:41: IVP, Drug Phil Campbell 00 form: INJ, ONCE, Dosing Weight 81.818, kg, Priority: STAT, Start date: 03/10/22 15:41:00 CDT, Stop date: 03/10/22 15:41:00 CDT morphine 2022-0 No 4 mg, [facility]oria Sulfate 7-20 Route: l 20:41: IVP, ONCE, Phil Campbell Dosing Weight 81.818, kg, Priority: STAT, Start date: 03/10/22 15:41:00 CDT, Stop date: 03/10/22 15:41:00 CDT Zofran 2022-0 No 4 mg, [facility] 7-20 Route: l 20:41: IVP, Drug Phil Campbell 00 form: INJ, ONCE, Dosing Weight 81.818, kg, Priority: STAT, Start date: 03/10/22 15:41:00 CDT, Stop date: 03/10/22 15:41:00 CDT morphine 2022-0 No 4 mg, [facility] Sulfate 7-20 Route: l 20:41: IVP, ONCE, Nicholas 00 Dosing Weight 81.818, kg, Priority: STAT, Start date: 03/10/22 15:41:00 CDT, Stop date: 03/10/22 15:41:00 CDT Zofran 2022-0 No 4 mg, [facility] 7-20 Route: l 20:41: IVP, Drug Phil Campbell 00 form: INJ, ONCE, Dosing Weight 81.818, kg, Priority: STAT, Start date: 03/10/22 15:41:00 CDT, Stop date: 03/10/22 15:41:00 CDT morphine 2022-0 No 4 mg, [facility] Sulfate 7-20 Route: l 20:41: IVP, ONCE, Phil Campbell 00 Dosing Weight 81.818, kg, Priority: STAT, Start date: 03/10/22 15:41:00 CDT, Stop date: 03/10/22 15:41:00 CDT Zofran 2022-0 No 4 mg, [facility] 7-20 Route: l 20:41: IVP, Drug Nicholas 00 form: INJ, ONCE, Dosing Weight 81.818, kg, Priority: STAT, Start date: 03/10/22 15:41:00 CDT, Stop date: 03/10/22 15:41:00 CDT morphine 2022-0 No 4 mg, [facility] Sulfate 7-20 Route: l 20:41: IVP, ONCE, Nicholas Dosing Weight 81.818, kg, Priority: STAT, Start date: 03/10/22 15:41:00 CDT, Stop date: 03/10/22 15:41:00 CDT Zofran 2022-0 No 4 mg, [facility] 7-20 Route: l 20:41: IVP, Drug Phil Campbell 00 form: INJ, ONCE, Dosing Weight 81.818, kg, Priority: STAT, Start date: 03/10/22 15:41:00 CDT, Stop date: 03/10/22 15:41:00 CDT morphine 2022-0 No 4 mg, [facility] Sulfate 7-20 Route: l 20:41: IVP, ONCE, Phil Campbell Dosing Weight 81.818, kg, Priority: STAT, Start date: 03/10/22 15:41:00 CDT, Stop date: 03/10/22 15:41:00 CDT Zofran 2022-0 No 4 mg, [facility] 7-20 Route: l 20:41: IVP, Drug Phil Campbell form: INJ, ONCE, Dosing Weight 81.818, kg, Priority: STAT, Start date: 03/10/22 15:41:00 CDT, Stop date: 03/10/22 15:41:00 CDT morphine 2022-0 No 4 mg, [facility] Sulfate 7-20 Route: l 20:41: IVP, ONCE, Nicholas Dosing Weight 81.818, kg, Priority: STAT, Start date: 03/10/22 15:41:00 CDT, Stop date: 03/10/22 15:41:00 CDT Zofran 2022-0 No 4 mg, [facility] 7-20 Route: l 20:41: IVP, Drug Nicholas 00 form: INJ, ONCE, Dosing Weight 81.818, kg, Priority: STAT, Start date: 03/10/22 15:41:00 CDT, Stop date: 03/10/22 15:41:00 CDT morphine 2022-0 No 4 mg, [facility] Sulfate 7-20 Route: l 20:41: IVP, ONCE, Phil Campbell 00 Dosing Weight 81.818, kg, Priority: STAT, Start date: 03/10/22 15:41:00 CDT, Stop date: 03/10/22 15:41:00 CDT Zofran No 4 mg, [facility] 7-20 Route: l 20:41: IVP, Drug form: INJ, ONCE, Dosing Weight 81.818, kg, Priority: STAT, Start date: 03/10/22 15:41:00 CDT, Stop date: 03/10/22 15:41:00 CDT thiamine Yes Notes: [facility] 7-20 (Same As: l 20:29: Vitamin Phil Campbell 00 B1) thiamine Yes Notes: [facility] 7-20 (Same As: l 20:29: Vitamin Nicholas 00 B1) thiamine Yes Notes: [facility] 7-20 (Same As: l 20:29: Vitamin Phil Campbell 00 B1) thiamine Yes Notes: [facility] 7-20 (Same As: l 20:29: Vitamin Nicholas 00 B1) thiamine Yes Notes: [facility] 7-20 (Same As: l 20:29: Vitamin Nicholas 00 B1) thiamine Yes Notes: [facility] 7-20 (Same As: l 20:29: Vitamin Nicholas 00 B1) thiamine Yes Notes: [facility] 7-20 (Same As: l 20:29: Vitamin Nicholas 00 B1) thiamine Yes Notes: [facility] 7-20 (Same As: l 20:29: Vitamin Nicholas 00 B1) thiamine Yes Notes: [facility] 7-20 (Same As: l 20:29: Vitamin Nicholas 00 B1) thiamine Yes Notes: [facility] 7-20 (Same As: l 20:29: Vitamin Nicholas 00 B1) thiamine Yes Notes: [facility] 7-20 (Same As: l 20:29: Vitamin Nicholas 00 B1) venlafaxine Yes QD Take by [facility] XR 7-07 mouth 1 [facility] (Effexor-XR 00:00: (one) time ) 150 MG 24 00 each day. hr capsule pantoprazol Yes 40mg QD Take 40 mg UT e 1-25 by mouth 1 [facility] (ProtoNix) 00:00: (one) time 40 MG EC 00 each day. tablet Immunizations Ordered Filled Date Status Comments Source Immunization Name Immunization Name Flu (split) (3 yrs 2022-05-22 Completed Note: [facility] ; 00:00:00 Source: Other Registry Flu (split) (2022-05-22 Completed Note: [facility] ; 00:00:00 Source: Other Registry Flu (split) (2022-05-22 Completed Note: [facility] pharmacy ; 00:00:00 Source: Other Registry Flu (split) (2022-05-22 Completed Note: [facility] pharmacy ; 00:00:00 Source: Other Registry Flu (split) (2022-05-22 Completed Note: [facility] older[facility] pharmacy ; 00:00:00 Source: Other Registry Flu (split) (2022-05-22 Completed Note: [facility] pharmacy ; 00:00:00 Source: Other Registry Flu (split) (2022-05-22 Completed Note: [facility] pharmacy ; 00:00:00 Source: Other Registry Flu (split) (2022-05-22 Completed Note: [facility] pharmacy ; 00:00:00 Source: Other Registry Flu (split) (2022-05-22 Completed Note: [facility] pharmacy ; 00:00:00 Source: Other Registry Flu (split) (2022-05-22 Completed Note: [facility] pharmacy ; 00:00:00 Source: Other Registry Flu (split) (2022-05-22 Completed Note: [facility] pharmacy ; 00:00:00 Source: Other Registry Flu (split) (2022-05-22 Completed Note: [facility] older[facility] 1 pharmacy ; 00:00:00 Source: Other Registry Flu (split) (2022-05-22 Completed Note: [facility] 1 pharmacy ; 00:00:00 Source: Other Registry Flu (split) (2022-05-22 Completed Note: [facility] pharmacy ; 00:00:00 Source: Other Registry Flu (split) (2022-05-22 Completed Note: [facility] or older[facility] 1 pharmacy ; 00:00:00 Source: Other Registry Flu (split) (3 yrs 2022-05-22 Completed Note: [facility] or older[facility] 1 pharmacy ; 00:00:00 Source: Other Registry Flu (split) (3 yrs 2022-05-22 Completed Note: [facility] or older[facility] 1 pharmacy ; 00:00:00 Source: Other Registry Flu (split) (3 2022-05-22 Completed Note: [facility] or older[facility] 1 pharmacy ; 00:00:00 Source: Other Registry Flu (split) (3 2022-05-22 Completed Note: [facility] or older[facility] 1 pharmacy ; 00:00:00 Source: Other Registry Flu (split) (3 2022-05-22 Completed Note: [facility] or older[facility] 1 pharmacy ; 00:00:00 Source: Other Registry Flu (split) (3 2022-05-22 Completed Note: [facility] 1 pharmacy ; 00:00:00 Source: Other Registry Flu (split) (3 2022-05-22 Completed Note: [facility] or older) 1 pharmacy ; 00:00:00 Source: Other Registry diphtheria/pertuss 2022-02-20 Completed Memori al Nicholas is, acel/tetanus 1 adult 01:31:00 diphtheria/pertuss 2022-02-20 Completed Memori al Phil Campbell is, acel/tetanus 1 adult 01:31:00 diphtheria/pertuss 2022-02-20 Completed Memori al Nicholas is, acel/tetanus 1 adult 01:31:00 diphtheria/pertuss 2022-02-20 Completed [facility] Phil Campbell is, acel/tetanus 1 adult 01:31:00 diphtheria/pertuss 2022-02-20 Completed Memori al Phil Campbell is, acel/tetanus 1 adult 01:31:00 diphtheria/pertuss 2022-02-20 Completed Memori al Nicholas is, acel/tetanus 1 adult 01:31:00 diphtheria/pertuss 2022-02-20 Completed Memori al Phil Campbell is, acel/tetanus 1 adult 01:31:00 diphtheria/pertuss 2022-02-20 Completed Memori al Phil Campbell is, acel/tetanus 1 adult 01:31:00 diphtheria/pertuss 2022-02-20 Completed Sharon Burroughs is, acel/tetanus 1 adult 01:31:00 diphtheria/pertuss 2022-02-20 Completed Sharon Burroughs is, acel/tetanus 1 adult 01:31:00 diphtheria/pertuss 2022-02-20 Completed Sharon Burroughs is, acel/tetanus 1 adult 01:31:00 Vital Signs Vital Name Observation Time Observation Value Comments Source Height 2022-09-25 172.72 CM 15:08:00 Weight 2022-09-25 83.91 KG 15:08:00 Height 2022-03-20 167.64 CM 21:38:00 Weight 2022-03-20 86.18 KG 21:38:00 Body height 2022-03-19 167.6 cm [facility] 16:42:00 Body weight 2022-03-19 81.647 kg [facility] 16:42:00 BMI 2022-03-19 29.05 kg/m2 [facility] 16:42:00 Intravascular 2022-10-05 146 mm[Hg] [facility] Systolic 16:57:00 Intravascular 2022-10-05 92 mm[Hg] [facility] Diastolic 16:57:00 Heart Rate 2022-10-05 77 /min [facility] 16:57:00 Body height 2022-10-05 168.15 cm [facility] 15:52:00 Body Weight 2022-10-05 89.721 kg [facility] 15:52:00 Intravascular 2022-10-05 158 mm[Hg] [facility] Systolic 15:52:00 Intravascular 2022-10-05 76 mm[Hg] [facility] Diastolic 15:52:00 Heart Rate 2022-10-05 85 /min [facility] 15:52:00 Body Temperature 2022-10-05 36.56 [facility] 15:52:00 Respiratory rate 2022-10-05 16 /min [facility] 15:52:00 Body mass index 2022-10-05 31.73 kg/m2 [facility] 15:52:00 Body height 2022-09-14 168.15 cm [facility] 11:06:00 Body Weight 2022-09-14 86.455 kg [facility] 11:06:00 [facility]ascular 2022-09-14 125 mm[Hg] [facility] Systolic 11:06:00 Intravascular 2022-09-14 87 mm[Hg] [facility] Diastolic 11:06:00 Heart Rate 2022-09-14 95 /min [facility] 11:06:00 Body Temperature 2022-09-14 36.72 [facility] 11:06:00 Respiratory rate 2022-09-14 18 /min [facility] 11:06:00 Body mass index 2022-09-14 30.58 kg/m2 [facility] 11:06:00 SaO2 % BldA Pulse[facility] 2022-09-14 92 /min [facility] 11:06:00 [facility] 2022-09-02 145 mm[Hg] [facility] Systolic 15:36:00 Intravascular 2022-09-02 91 mm[Hg] [facility] Diastolic 15:36:00 Heart Rate 2022-09-02 84 /min [facility] 15:36:00 Respiratory rate 2022-09-02 18 /min [facility] 15:[facility] Body height 2022-09-02 168.15 cm [facility] 15:13:00 Body Weight 2022-09-02 86.727 kg [facility] 15:13:00 Intravascular 2022-09-02 147 mm[Hg] [facility] Systolic 15:13:00 Intravascular 2022-09-02 94 mm[Hg] [facility] Diastolic 15:13:00 Heart Rate 2022-09-02 80 /min [facility] 15:13:00 Body Temperature 2022-09-02 36.33 Janet [facility] 15:13:00 Respiratory rate 2022-09-02 18 /min [facility] 15:13:00 Body mass index 2022-09-02 30.67 kg/m2 [facility] 15:13:00 Systolic blood 2022-07-29 136 mm[Hg] [facility] pressure 17:51:00 Diastolic blood 2022-07-29 84 mm[Hg] [facility] 17:[facility]00 Heart rate 2022-07-29 87 /min [facility] 17:51:00 Body temperature 2022-07-29 36.61 Janet [facility] 10:32:00 Respiratory rate 2022-07-29 18 /min [facility] 10:32:00 Body height 2022-07-29 165.1 cm [facility] 10:32:00 Body weight 2022-07-29 85.73 kg [facility] 10:32:00 BMI 2022-07-29 31.45 kg/m2 [facility] 10:32:00 Oxygen saturation in 2022-06-26 96 /min [facility] Arterial blood by 19:58:00 Pulse oximetry Systolic blood 2022-04-29 147 mm[Hg] [facility] pressure 08:52:00 Diastolic blood 2022-04-29 87 mm[Hg] [facility] pressure 08:52:00 Heart rate 2022-04-29 84 /min [facility] 08:52:00 Body temperature 2022-04-29 36.28 Janet [facility] 08:52:00 Body height 2022-04-29 165.1 cm [facility] 08:52:00 Body weight 2022-04-29 87.091 kg [facility] 08:52:00 BMI 2022-04-29 31.95 kg/m2 [facility] 08:52:00 Systolic blood 2022-04-15 133 mm[Hg] [facility] pressure 21:13:54 Diastolic blood 2022-04-15 75 mm[Hg] [facility] pressure 21:13:54 Heart rate 2022-04-15 106 /min [facility] 21:13:54 Respiratory rate 2022-04-15 18 /min [facility] 21:13:54 Oxygen saturation in 2022-04-15 95 /min [facility] Arterial blood by 21:13:54 Pulse oximetry Body temperature 2022-04-15 37.11 [facility] 18:12:55 Body height 2022-04-15 167.6 cm [facility] 18:10:00 Body weight 2022-04-15 85.276 [facility] 18:10:00 BMI 2022-04-15 30.34 kg/m2 [facility] 18:10:00 Respiratory rate 2022-04-06 13 /min [facility] 16:30:00 Oxygen saturation in 2022-04-06 98 /min [facility] Arterial blood by 16:30:00 Pulse oximetry Heart Rate 2022-03-17 [facility] Sav n 04:21:00 Respitory Rate 2022-03-17 [facility] Ang alicia 04:21:00 Systolic (mm Hg) 2022-03-17 [facility] rmann 04:21:00 Diastolic (mm Hg) 2022-03-17 [facility] 04:21:00 Systolic (mm Hg) 2022-03-17 [facility] 02:08:00 Diastolic (mm Hg) 2022-03-17 [facility] 02:08:00 Heart Rate 2022-03-17 [facility] 01:12:00 Respitory Rate 2022-03-17 [facility] 01:12:00 Systolic (mm Hg) 2022-03-17 [facility] 01:12:00 Diastolic (mm Hg) 2022-03-17 [facility] H ermann 01:12:00 Height 2022-03-16 167.64 cm [facility] 22:23:00 BMI Calculated 2022-03-16 [facility] 22:23:00 Weight 2022-03-16 [facility] 22:23:00 Heart Rate 2022-03-16 [facility] 22:23:00 Respitory Rate 2022-03-16 [facility] 22:23:00 Temperature Oral (F) 2022-03-16 98.2 F [facility] 22:23:00 Systolic (mm Hg) 2022-03-11 [facility] rmann 02:30:00 Diastolic (mm Hg) 2022-03-11 [facility] ermann 02:30:00 Respitory Rate 2022-03-11 [facility] 02:30:00 Respitory Rate 2022-03-11 [facility] 02:01:00 Systolic (mm Hg) 2022-03-11 [facility] rmann 02:01:00 Diastolic (mm Hg) 2022-03-11 [facility] ermann 02:01:00 Respitory Rate 2022-03-11 [facility] 01:45:00 Systolic (mm Hg) 2022-03-11 [facility] rmann 01:45:00 Diastolic (mm Hg) 2022-03-11 [facility] H ermann 01:45:00 Temperature Oral (F) 2022-03-10 98.4 F [facility] 23:45:00 Heart Rate 2022-03-10 [facility] 23:45:00 Heart Rate 2022-03-10 [facility] 23:35:00 Temperature Oral (F) 2022-03-10 98.3 F [facility] 22:38:00 Heart Rate 2022-03-10 [facility] 22:38:00 Temperature Oral (F) 2022-03-10 98.1 F Roberto Peterson 21:10:00 Height 2022-03-10 165.1 cm [facility] Ang n 20:20:00 BMI Calculated 2022-03-10 [facility] vargas 20:20:00 Weight 2022-03-10 [facility] armijo 20:20:00 Procedures Procedure Date / Time Performing Clinician Source Performed OFFICE VISIT DURING HOURS 2022-10-08 00:00:00 [facility] TRE[facility] INITIATED 2022-10-08 00:00:00 [facility] Individual Therapy 2022-10-07 00:00:00 [facility] CHYLMD TRACH DNA AMP 2022-10-07 00:00:00 [facility] PROBE COMPREHEN METABOLIC PANEL 2022-10-07 00:00:00 [facility] PROTHROMBIN TIME 2022-10-07 00:00:00 [facility] SYPHILIS TEST NON-TREP 2022-10-07 [facility] W/HIV-1 & HIV-2 2022-10-07 00:00:00 [facility] AB HEPATITIS C AB TEST 2022-10-07 00:00:00 [facility] ASSAY OF GGT 2022-10-07 00:00:00 [facility] ASSAY OF AMYLASE 2022-10-07 00:00:00 [facility] ASS[facility] OF LIPASE 2022-10-07 00:00:00 [facility] ASSAY OF FERRITIN 2022-10-07 00:00:00 [facility] ASS[facility] OF AMMONIA 2022-10-07 00:00:00 [facility] DRUG TEST PRSMV DIR OPT 2022-10-05 00:00:00 [facility] OBS OFFICE/OUTPATIENT VISIT 2022-10-05 00:00:00 [facility] EST DRUG TEST PRSMV CHEM 2022-10-05 00:00:00 [facility] ANLYZR ENVIRONMENTAL 2022-10-04 00:00:00 [facility] MANIPULATION INGA Individual Therapy 2022-09-23 [facility] 2022-09-22 [facility] INTRA[facility] PERIAPICAL 2022-09-22 00:00:00 [facility] FIRST DENTAL BITEWING SINGLE 2022-09-22 00:00:00 [facility] FILM INGA Individual Therapy 2022-09-21 00:00:00 [facility] INGA Individual Therapy 2022-09-16 00:00:00 [facility] OFFICE/OUTPATIENT VISIT 2022-09-14 00:00:[facility] EST PHONE CALL TO 2022-09-09 00:00:00 [facility] SECOND MILE MISSION 2022-09-09 00:00:00 [facility] alth ASSESSMENT 2022-09-07 00:00:00 [facility] PREV VISIT NEW AGE 40-64 2022-09-02 00:00:00 [facility] COMPLETE CBC W/AUTO DIFF 2022-09-02 00:00:00 [facility] WBC COMPREHEN METABOLIC PANEL 2022-09-02 00:00:00 [facility] LIPID PANEL 2022-09-02 00:00:00 [facility] ACUTE HEPATITIS PANEL 2022-09-02 00:00:00 [facility] CHYLMD TRACH DNA AMP 2022-09-02 00:00:00 [facility] PROBE GLYCOSYLATED HEMOGLOBIN 2022-09-02 00:00:00 [facility] TEST ASSAY OF FREE THYROXINE 2022-09-02 00:00:00 [facility] ASSAY THYROID STIM 2022-09-02 00:00:00 [facility] lth HORMONE RHEUMATOID FACTOR QUANT 2022-09-02 00:00:00 [facility] SYPHILIS TEST NON-TREP 2022-09-02 00:00:00 [facility] QUAL VITAMIN D 25 HYDROXY 2022-09-02 00:00:00 [facility] HIV-1 AG W/HIV-1 & HIV-2 2022-09-02 00:00:00 [facility] AB ANTINUCLEAR ANTIBODIES 2022-09-02 00:00:00 [facility] ASSAY OF TOTAL THYROXINE 2022-09-02 00:00:00 [facility] URINE CULTURE/COLONY 2022-09-02 00:00:00 [facility] COUNT FREE ASSAY (FT-3) 2022-09-02 00:00:00 [facility] th DRUG TEST PRSMV CHEM 2022-09-02 00:00:00 [facility] ANLYZR XRAY ANKLE 3 VIEWS - 2022-07-29 10:46:00 Lily Hermosillo [facility] ROUTINE CBC/DIFF 2022-06-26 20:07:[address] [facility] ealth CBC 2022-06-26 20:07:[address] [facility] ealth XRAY ANKLE 3 VIEW MIN 2022-06-26 19:38:00 Nikia Rhona [facility] XRAY FOOT 3 VIEWS MIN 2022-06-26 19:38:00 Solo Rainey [facility] Health XRAY ANKLE 3 VIEWS - 2022-06-17 11:40:58 Lily Hermosillo [facility] ROUTINE AIRWAY 2022-05-07 12:35:52 [facility] 2022-05-07 12:20:00 [facility]/BIMALLEOLAR/TRIMALL EOLAR ANES IMG, NERV BLCK- 2022-05-07 08:12:00 Jomar King [facility] SCIATIC CORONAVIRUS, COVID-19, 2022-05-05 12:57:00 Ibrahima Chen [facility] MATIAS XRAY ANKLE 3 VIEWS - 2022-04-23 09:37:32 Clifford Lomax [facility] ROUTINE XR FOOT 3+ VW LEFT 2022-04-15 19:49:11 GreeneParag carpenter [facility] XR ANKLE 3+ VW LEFT 2022-04-15 19:48:54 GreeneParag carpenter [facility] POC GLUCOSE 2022-04-15 18:15:00 Provider, Unknown [facility] ANESTHESIA PERIPHERAL 2022-04-06 14:30:00 Marshal Fitzpatrick [facility] BLOCK AIRWAY 2022-04-06 11:34:00 Nanette Nelson lth ORIF 2022-04-06 11:14:00 [facility] ANKLE/BIMALLEOLAR/TRIMALL EOLAR ORIF TARSAL/METATARSAL 2022-04-06 11:14:00 Lily Hermosillo [facility] FRACTURE BETA-HCG, QUALITATIVE 2022-04-02 13:51:00 Chester Donis [facility] BASIC METABOLIC PANEL 2022-04-02 13:51:00 Siddhartha Cardoso [facility] CBC/DIFF 2022-04-02 13:51:00 [facility] 2022-04-02 13:51:00 Siddhartha Cardoso [facility] SARS-COV-2, FLU A/B, RSV 2022-04-02 11:32:00 [facility] CORONAVIRUS, COVID-19, 2022-04-02 11:32:00 Chester Donis [facility] MATIAS XRAY ANKLE 3 VIEW MIN 2022-03-29 19:24:00 Juana Olsen [facility] PROCEDURAL SEDATION 2022-03-13 00:01:[address] [facility] ealth XRAY ANKLE 3 VIEWS - 2022-03-12 23:16:00 Wesleymdabraham [facility] ROUTINE CT ANKLE W/O CONTRAST 2022-03-12 20:30:54 Katherine [facility] XRAY FOOT 3 VIEWS - 2022-03-12 20:19:00 Otto Murphy [facility] ROUTINE XRAY ANKLE 3 VIEWS - 2022-03-12 13:46:00 Janee Cast [facility] ROUTINE XRAY FOOT 3 VIEWS - 2022-03-12 13:46:00 Janee Cast [facility] ROUTINE XRAY TIBIA AND FIBULA 2 2022-03-12 13:46:00 [facility] Care Planned Activity Planned Date Details Comments Source Future Scheduled 2022-11-01 HEPATITIS B VACCINES [facility] Test 10:56:52 (1 of 3 - 3-dose series) [code = HEPATITIS B VACCINES (1 of 3 - 3-dose series)] Future Scheduled 2022-11-01 Pneumococcal Vaccine: [facility] Test 10:56:52 Pediatrics (0 to 5 Years) and At-Risk Patients (6 to 64 Years) (1 - PCV) [code = Pneumococcal Vaccine: Pediatrics (0 to 5 Years) and At-Risk Patients (6 to 64 Years) (1 - PCV)] Future Scheduled 2022-11-01 Hepatitis C screening [facility] Test 10:56:52 (procedure) [code = [id number]] Future Scheduled 2022-11-01 Screening for [facility] Test 10:56:52 malignant neoplasm of cervix (procedure) [code = [id number]] Future Scheduled 2022-11-01 BREAST CANCER [facility] Test 10:56:52 SCREENING [code = BREAST CANCER SCREENING] Future Scheduled 2022-11-01 COLONOSCOPY SCREENING [facility] Test 10:56:52 [code = COLONOSCOPY SCREENING] Future Scheduled 2022-11-01 SHINGLES VACCINES (1 [facility] Test 10:56:52 of 2) [code = SHINGLES VACCINES (1 of 2)] Future Scheduled 2022-11-01 COVID-19 VACCINE (3 - [facility] Test 10:56:52 Booster for Pfizer series) [code = COVID-19 VACCINE (3 - Booster for Pfizer series)] Future Scheduled 2022-11-01 INFLUENZA VACCINE [facility] Test 10:56:52 [code = INFLUENZA VACCINE] Future Scheduled 2022-11-01 HEPATITIS B VACCINES [facility] Test 10:56:52 (1 of 3 - 3-dose series) [code = HEPATITIS B VACCINES (1 of 3 - 3-dose series)] Future Scheduled 2022-11-01 Pneumococcal Vaccine: [facility] Test 10:56:52 Pediatrics (0 to 5 Years) and At-Risk Patients (6 to 64 Years) (1 - PCV) [code = Pneumococcal Vaccine: Pediatrics (0 to 5 Years) and At-Risk Patients (6 to 64 Years) (1 - PCV)] Future Scheduled 2022-11-01 Hepatitis C screening [facility] Test 10:56:52 (procedure) [code = [id number]] Future Scheduled 2022-11-01 Screening for [facility] Test 10:56:52 malignant neoplasm of cervix (procedure) [code = 851152503] Future Scheduled 2022-11-01 BREAST CANCER [facility] Test 10:56:52 SCREENING [code = BREAST CANCER SCREENING] Future Scheduled 2022-11-01 HEPATITIS B VACCINES [facility] Test 10:56:52 (1 of 3 - 3-dose series) [code = HEPATITIS B VACCINES (1 of 3 - 3-dose series)] Future Scheduled 2022-11-01 Pneumococcal Vaccine: [facility] Test 10:56:52 Pediatrics (0 to 5 Years) and At-Risk Patients (6 to 64 Years) (1 - PCV) [code = Pneumococcal Vaccine: Pediatrics (0 to 5 Years) and At-Risk Patients (6 to 64 Years) (1 - PCV)] Future Scheduled 2022-11-01 Hepatitis C screening [facility] Test 10:56:52 (procedure) [code = 108394472] Future Scheduled 2022-11-01 Screening for [facility] Test 10:56:52 malignant neoplasm of cervix (procedure) [code = 378687117] Future Scheduled 2022-11-01 COLONOSCOPY SCREENING [facility] Test 10:56:52 [code = COLONOSCOPY SCREENING] Future Scheduled 2022-11-01 BREAST CANCER [facility] Test 10:56:52 SCREENING [code = BREAST CANCER SCREENING] Future Scheduled 2022-11-01 COLONOSCOPY SCREENING [facility] Test 10:56:52 [code = COLONOSCOPY SCREENING] Future Scheduled 2022-11-01 SHINGLES VACCINES (1 [facility] Test 10:56:52 of 2) [code = SHINGLES VACCINES (1 of 2)] Future Scheduled 2022-11-01 COVID-19 VACCINE (3 - [facility] Test 10:56:52 Booster for Pfizer series) [code = COVID-19 VACCINE (3 - Booster for Pfizer series)] Future Scheduled 2022-11-01 INFLUENZA VACCINE [facility] Test 10:56:52 [code = INFLUENZA VACCINE] Future Scheduled 2022-11-01 SHINGLES VACCINES (1 [facility] Test 10:56:52 of 2) [code = SHINGLES VACCINES (1 of 2)] Future Scheduled 2022-11-01 COVID-19 VACCINE (3 - [facility] Test 10:56:52 Booster for Pfizer series) [code = COVID-19 VACCINE (3 - Booster for Pfizer series)] Future Scheduled 2022-11-01 INFLUENZA VACCINE [facility] Test 10:56:52 [code = INFLUENZA VACCINE] Future Scheduled 2022-11-01 HEPATITIS B VACCINES [facility] Test 10:56:52 (1 of 3 - 3-dose series) [code = HEPATITIS B VACCINES (1 of 3 - 3-dose series)] Future Scheduled 2022-11-01 Pneumococcal Vaccine: [facility] Test 10:56:52 Pediatrics (0 to 5 Years) and At-Risk Patients (6 to 64 Years) (1 - PCV) [code = Pneumococcal Vaccine: Pediatrics (0 to 5 Years) and At-Risk Patients (6 to 64 Years) (1 - PCV)] Future Scheduled 2022-11-01 Hepatitis C screening [facility] Test 10:56:52 (procedure) [code = 859956512] Future Scheduled 2022-11-01 Screening for [facility] Test 10:56:52 malignant neoplasm of cervix (procedure) [code = 507564070] Future Scheduled 2022-11-01 BREAST CANCER [facility] Test 10:56:52 SCREENING [code = BREAST CANCER SCREENING] Future Scheduled 2022-11-01 COLONOSCOPY SCREENING [facility] Test 10:56:52 [code = COLONOSCOPY SCREENING] Future Scheduled 2022-11-01 SHINGLES VACCINES (1 [facility] Test 10:56:52 of 2) [code = SHINGLES VACCINES (1 of 2)] Future Scheduled 2022-11-01 COVID-19 VACCINE (3 - [facility] Test 10:56:52 Booster for Pfizer series) [code = COVID-19 VACCINE (3 - Booster for Pfizer series)] Future Scheduled 2022-11-01 INFLUENZA VACCINE [facility] Test 10:56:52 [code = INFLUENZA VACCINE] Future Scheduled 2022-11-01 HEPATITIS B VACCINES [facility] Test 10:56:52 (1 of 3 - 3-dose series) [code = HEPATITIS B VACCINES (1 of 3 - 3-dose series)] Future Scheduled 2022-11-01 Pneumococcal Vaccine: [facility] Test 10:56:52 Pediatrics (0 to 5 Years) and At-Risk Patients (6 to 64 Years) (1 - PCV) [code = Pneumococcal Vaccine: Pediatrics (0 to 5 Years) and At-Risk Patients (6 to 64 Years) (1 - PCV)] Future Scheduled 2022-11-01 Hepatitis C screening [facility] Test 10:56:52 (procedure) [code = 088162913] Future Scheduled 2022-11-01 Screening for [facility] Test 10:56:52 malignant neoplasm of cervix (procedure) [code = 535699744] Future Scheduled 2022-11-01 BREAST CANCER [facility] Test 10:56:52 SCREENING [code = BREAST CANCER SCREENING] Future Scheduled 2022-11-01 COLONOSCOPY SCREENING [facility] Test 10:56:52 [code = COLONOSCOPY SCREENING] Future Scheduled 2022-11-01 SHINGLES VACCINES (1 [facility] Test 10:56:52 of 2) [code = SHINGLES VACCINES (1 of 2)] Future Scheduled 2022-11-01 COVID-19 VACCINE (3 - [facility] Test 10:56:52 Booster for Pfizer series) [code = COVID-19 VACCINE (3 - Booster for Pfizer series)] Future Scheduled 2022-11-01 INFLUENZA VACCINE [facility] Test 10:56:52 [code = INFLUENZA VACCINE] Future Scheduled 2022-11-01 HEPATITIS B VACCINES [facility] Test 10:56:52 (1 of 3 - 3-dose series) [code = HEPATITIS B VACCINES (1 of 3 - 3-dose series)] Future Scheduled 2022-11-01 Pneumococcal Vaccine: [facility] Test 10:56:52 Pediatrics (0 to 5 Years) and At-Risk Patients (6 to 64 Years) (1 - PCV) [code = Pneumococcal Vaccine: Pediatrics (0 to 5 Years) and At-Risk Patients (6 to 64 Years) (1 - PCV)] Future Scheduled 2022-11-01 Hepatitis C screening [facility] Test 10:56:52 (procedure) [code = [id number]] Future Scheduled 2022-11-01 Screening for [facility] Test 10:56:52 malignant neoplasm of cervix (procedure) [code = 338857948] Future Scheduled 2022-11-01 BREAST CANCER [facility] Test 10:56:52 SCREENING [code = BREAST CANCER SCREENING] Future Scheduled 2022-11-01 COLONOSCOPY SCREENING [facility] Test 10:56:52 [code = COLONOSCOPY SCREENING] Future Scheduled 2022-11-01 SHINGLES VACCINES (1 [facility] Test 10:56:52 of 2) [code = SHINGLES VACCINES (1 of 2)] Future Scheduled 2022-11-01 COVID-19 VACCINE (3 - [facility] Test 10:56:52 Booster for Pfizer series) [code = COVID-19 VACCINE (3 - Booster for Pfizer series)] Future Scheduled 2022-11-01 INFLUENZA VACCINE [facility] Test 10:56:52 [code = INFLUENZA VACCINE] Future Scheduled 2022-10-19 HEPATITIS B VACCINES [facility] Test 15:24:38 (1 of 3 - 3-dose series) [code = HEPATITIS B VACCINES (1 of 3 - 3-dose series)] Future Scheduled 2022-10-19 Pneumococcal Vaccine: [facility] Test 15:24:38 Pediatrics (0 to 5 Years) and At-Risk Patients (6 to 64 Years) (1 - PCV) [code = Pneumococcal Vaccine: Pediatrics (0 to 5 Years) and At-Risk Patients (6 to 64 Years) (1 - PCV)] Future Scheduled 2022-10-19 Hepatitis C screening [facility] Test 15:24:38 (procedure) [code = 890133550] Future Scheduled 2022-10-19 Screening for [facility] Test 15:24:38 malignant neoplasm of cervix (procedure) [code = 047438082] Future Scheduled 2022-10-19 BREAST CANCER [facility] Test 15:24:38 SCREENING [code = BREAST CANCER SCREENING] Future Scheduled 2022-10-19 COLONOSCOPY SCREENING [facility] Test 15:24:38 [code = COLONOSCOPY SCREENING] Future Scheduled 2022-10-19 SHINGLES VACCINES (1 [facility] Test 15:24:38 of 2) [code = SHINGLES VACCINES (1 of 2)] Future Scheduled 2022-10-19 COVID-19 VACCINE (3 - [facility] Test 15:24:38 Booster for Pfizer series) [code = COVID-19 VACCINE (3 - Booster for Pfizer series)] Future Scheduled 2022-10-19 INFLUENZA VACCINE [facility] Test 15:24:38 [code = INFLUENZA VACCINE] Future Scheduled 2022-10-19 HEPATITIS B VACCINES [facility] Test 15:24:38 (1 of 3 - 3-dose series) [code = HEPATITIS B VACCINES (1 of 3 - 3-dose series)] Future Scheduled 2022-10-19 Pneumococcal Vaccine: [facility] Test 15:24:38 Pediatrics (0 to 5 Years) and At-Risk Patients (6 to 64 Years) (1 - PCV) [code = Pneumococcal Vaccine: Pediatrics (0 to 5 Years) and At-Risk Patients (6 to 64 Years) (1 - PCV)] Future Scheduled 2022-10-19 Hepatitis C screening [facility] Test 15:24:38 (procedure) [code = 710335150] Future Scheduled 2022-10-19 Screening for [facility] Test 15:24:38 malignant neoplasm of cervix (procedure) [code = 595880819] Future Scheduled 2022-10-19 BREAST CANCER [facility] Test 15:24:38 SCREENING [code = BREAST CANCER SCREENING] Future Scheduled 2022-10-19 COLONOSCOPY SCREENING [facility] Test 15:24:38 [code = COLONOSCOPY SCREENING] Future Scheduled 2022-10-19 SHINGLES VACCINES (1 [facility] Test 15:24:38 of 2) [code = SHINGLES VACCINES (1 of 2)] Future Scheduled 2022-10-19 COVID-19 VACCINE (3 - [facility] Test 15:24:38 Booster for Pfizer series) [code = COVID-19 VACCINE (3 - Booster for Pfizer series)] Future Scheduled 2022-10-19 INFLUENZA VACCINE [facility] Test 15:24:38 [code = INFLUENZA VACCINE] Future Scheduled 2022-10-19 HEPATITIS B VACCINES [facility] Test 15:24:38 (1 of 3 - 3-dose series) [code = HEPATITIS B VACCINES (1 of 3 - 3-dose series)] Future Scheduled 2022-10-19 Pneumococcal Vaccine: [facility] Test 15:24:38 Pediatrics (0 to 5 Years) and At-Risk Patients (6 to 64 Years) (1 - PCV) [code = Pneumococcal Vaccine: Pediatrics (0 to 5 Years) and At-Risk Patients (6 to 64 Years) (1 - PCV)] Future Scheduled 2022-10-19 Hepatitis C screening [facility] Test 15:24:38 (procedure) [code = 199638862] Future Scheduled 2022-10-19 Screening for [facility] Test 15:24:38 malignant neoplasm of cervix (procedure) [code = 494065341] Future Scheduled 2022-10-19 BREAST CANCER [facility] Test 15:24:38 SCREENING [code = BREAST CANCER SCREENING] Future Scheduled 2022-10-19 COLONOSCOPY SCREENING [facility] Test 15:24:38 [code = COLONOSCOPY SCREENING] Future Scheduled 2022-10-19 SHINGLES VACCINES (1 [facility] Test 15:24:38 of 2) [code = SHINGLES VACCINES (1 of 2)] Future Scheduled 2022-10-19 COVID-19 VACCINE (3 - [facility] Test 15:24:38 Booster for Pfizer series) [code = COVID-19 VACCINE (3 - Booster for Pfizer series)] Future Scheduled 2022-10-19 INFLUENZA VACCINE [facility] Test 15:24:38 [code = INFLUENZA VACCINE] Future Scheduled 2022-10-19 HEPATITIS B VACCINES [facility] Test 15:24:38 (1 of 3 - 3-dose series) [code = HEPATITIS B VACCINES (1 of 3 - 3-dose series)] Future Scheduled 2022-10-19 Pneumococcal Vaccine: [facility] Test 15:24:38 Pediatrics (0 to 5 Years) and At-Risk Patients (6 to 64 Years) (1 - PCV) [code = Pneumococcal Vaccine: Pediatrics (0 to 5 Years) and At-Risk Patients (6 to 64 Years) (1 - PCV)] Future Scheduled 2022-10-19 Hepatitis C screening [facility] Test 15:24:38 (procedure) [code = 983140120] Future Scheduled 2022-10-19 Screening for [facility] Test 15:24:38 malignant neoplasm of cervix (procedure) [code = 815386371] Future Scheduled 2022-10-19 BREAST CANCER [facility] Test 15:24:38 SCREENING [code = BREAST CANCER SCREENING] Future Scheduled 2022-10-19 COLONOSCOPY SCREENING [facility] Test 15:24:38 [code = COLONOSCOPY SCREENING] Future Scheduled 2022-10-19 SHINGLES VACCINES (1 [facility] Test 15:24:38 of 2) [code = SHINGLES VACCINES (1 of 2)] Future Scheduled 2022-10-19 COVID-19 VACCINE (3 - [facility] Test 15:24:38 Booster for Pfizer series) [code = COVID-19 VACCINE (3 - Booster for Pfizer series)] Future Scheduled 2022-10-19 INFLUENZA VACCINE [facility] Test 15:24:38 [code = INFLUENZA VACCINE] Future Scheduled 2022-10-12 HEPATITIS B VACCINES [facility] Test 11:07:38 (1 of 3 - 3-dose series) [code = HEPATITIS B VACCINES (1 of 3 - 3-dose series)] Future Scheduled 2022-10-12 Pneumococcal Vaccine: [facility] Test 11:07:38 Pediatrics (0 to 5 Years) and At-Risk Patients (6 to 64 Years) (1 - PCV) [code = Pneumococcal Vaccine: Pediatrics (0 to 5 Years) and At-Risk Patients (6 to 64 Years) (1 - PCV)] Future Scheduled 2022-10-12 Hepatitis C screening [facility] Test 11:07:38 (procedure) [code = [id number]] Future Scheduled 2022-10-12 Screening for [facility] Test 11:07:38 malignant neoplasm of cervix (procedure) [code = [id number]] Future Scheduled 2022-10-12 BREAST CANCER [facility] Test 11:07:38 SCREENING [code = BREAST CANCER SCREENING] Future Scheduled 2022-10-12 COLONOSCOPY SCREENING [facility] Test 11:07:38 [code = COLONOSCOPY SCREENING] Future Scheduled 2022-10-12 SHINGLES VACCINES (1 [facility] Test 11:07:38 of 2) [code = SHINGLES VACCINES (1 of 2)] Future Scheduled 2022-10-12 COVID-19 VACCINE (3 - [facility] Test 11:07:38 Booster for Pfizer series) [code = COVID-19 VACCINE (3 - Booster for Pfizer series)] Future Scheduled 2022-10-12 INFLUENZA VACCINE [facility] Test 11:07:38 [code = INFLUENZA VACCINE] Future Scheduled 2022-10-12 HEPATITIS B VACCINES [facility] Test 11:07:38 (1 of 3 - 3-dose series) [code = HEPATITIS B VACCINES (1 of 3 - 3-dose series)] Future Scheduled 2022-10-12 Pneumococcal Vaccine: [facility] Test 11:07:38 Pediatrics (0 to 5 Years) and At-Risk Patients (6 to 64 Years) (1 - PCV) [code = Pneumococcal Vaccine: Pediatrics (0 to 5 Years) and At-Risk Patients (6 to 64 Years) (1 - PCV)] Future Scheduled 2022-10-12 Hepatitis C screening [facility] Test 11:07:38 (procedure) [code = [id number]] Future Scheduled 2022-10-12 Screening for [facility] Test 11:07:38 malignant neoplasm of cervix (procedure) [code = [id number]] Future Scheduled 2022-10-12 BREAST CANCER [facility] Test 11:07:38 SCREENING [code = BREAST CANCER SCREENING] Future Scheduled 2022-10-12 COLONOSCOPY SCREENING [facility] Test 11:07:38 [code = COLONOSCOPY SCREENING] Future Scheduled 2022-10-12 SHINGLES VACCINES (1 [facility] Test 11:07:38 of 2) [code = SHINGLES VACCINES (1 of 2)] Future Scheduled 2022-10-12 COVID-19 VACCINE (3 - [facility] Test 11:07:38 Booster for Pfizer series) [code = COVID-19 VACCINE (3 - Booster for Pfizer series)] Future Scheduled 2022-10-12 INFLUENZA VACCINE [facility] Test 11:07:38 [code = INFLUENZA VACCINE] Future Scheduled 2022-10-07 HEPATITIS B VACCINES [facility] Test 18:35:48 (1 of 3 - 3-dose series) [code = HEPATITIS B VACCINES (1 of 3 - 3-dose series)] Future Scheduled 2022-10-07 Pneumococcal Vaccine: [facility] Test 18:35:48 Pediatrics (0 to 5 Years) and At-Risk Patients (6 to 64 Years) (1 - PCV) [code = Pneumococcal Vaccine: Pediatrics (0 to 5 Years) and At-Risk Patients (6 to 64 Years) (1 - PCV)] Future Scheduled 2022-10-07 Hepatitis C screening [facility] Test 18:35:48 (procedure) [code = [id number]] Future Scheduled 2022-10-07 Screening for [facility] Test 18:35:48 malignant neoplasm of cervix (procedure) [code = [id number]] Future Scheduled 2022-10-07 BREAST CANCER [facility] Test 18:35:48 SCREENING [code = BREAST CANCER SCREENING] Future Scheduled 2022-10-07 COLONOSCOPY SCREENING [facility] Test 18:35:48 [code = COLONOSCOPY SCREENING] Future Scheduled 2022-10-07 SHINGLES VACCINES (1 [facility] Test 18:35:48 of 2) [code = SHINGLES VACCINES (1 of 2)] Future Scheduled 2022-10-07 COVID-19 VACCINE (3 - [facility] Test 18:35:48 Booster for Pfizer series) [code = COVID-19 VACCINE (3 - Booster for Pfizer series)] Future Scheduled 2022-10-07 INFLUENZA VACCINE [facility] Test 18:35:48 [code = INFLUENZA VACCINE] Future Scheduled 2022-10-07 HEPATITIS B VACCINES [facility] Test 18:35:48 (1 of 3 - 3-dose series) [code = HEPATITIS B VACCINES (1 of 3 - 3-dose series)] Future Scheduled 2022-10-07 Pneumococcal Vaccine: [facility] Test 18:35:48 Pediatrics (0 to 5 Years) and At-Risk Patients (6 to 64 Years) (1 - PCV) [code = Pneumococcal Vaccine: Pediatrics (0 to 5 Years) and At-Risk Patients (6 to 64 Years) (1 - PCV)] Future Scheduled 2022-10-07 Hepatitis C screening [facility] Test 18:35:48 (procedure) [code = [id number]] Future Scheduled 2022-10-07 Screening for [facility] Test 18:35:48 malignant neoplasm of cervix (procedure) [code = [id number]] Future Scheduled 2022-10-07 BREAST CANCER [facility] Test 18:35:48 SCREENING [code = BREAST CANCER SCREENING] Future Scheduled 2022-10-07 COLONOSCOPY SCREENING [facility] Test 18:35:48 [code = COLONOSCOPY SCREENING] Future Scheduled 2022-10-07 SHINGLES VACCINES (1 [facility] Test 18:35:48 of 2) [code = SHINGLES VACCINES (1 of 2)] Future Scheduled 2022-10-07 COVID-19 VACCINE (3 - [facility] Test 18:35:48 Booster for Pfizer series) [code = COVID-19 VACCINE (3 - Booster for Pfizer series)] Future Scheduled 2022-10-07 INFLUENZA VACCINE [facility] Test 18:35:48 [code = INFLUENZA VACCINE] Future Scheduled 2022-10-07 HEPATITIS B VACCINES [facility] Test 18:35:48 (1 of 3 - 3-dose series) [code = HEPATITIS B VACCINES (1 of 3 - 3-dose series)] Future Scheduled 2022-10-07 Pneumococcal Vaccine: [facility] Test 18:35:48 Pediatrics (0 to 5 Years) and At-Risk Patients (6 to 64 Years) (1 - PCV) [code = Pneumococcal Vaccine: Pediatrics (0 to 5 Years) and At-Risk Patients (6 to 64 Years) (1 - PCV)] Future Scheduled 2022-10-07 Hepatitis C screening [facility] Test 18:35:48 (procedure) [code = [id number]] Future Scheduled 2022-10-07 Screening for [facility] Test 18:35:48 malignant neoplasm of cervix (procedure) [code = [id number]] Future Scheduled 2022-10-07 BREAST CANCER [facility] Test 18:35:48 SCREENING [code = BREAST CANCER SCREENING] Future Scheduled 2022-10-07 COLONOSCOPY SCREENING [facility] Test 18:35:48 [code = COLONOSCOPY SCREENING] Future Scheduled 2022-10-07 SHINGLES VACCINES (1 [facility] Test 18:35:48 of 2) [code = SHINGLES VACCINES (1 of 2)] Future Scheduled 2022-10-07 COVID-19 VACCINE (3 - [facility] Test 18:35:48 Booster for Pfizer series) [code = COVID-19 VACCINE (3 - Booster for Pfizer series)] Future Scheduled 2022-10-07 INFLUENZA VACCINE [facility] Test 18:35:48 [code = INFLUENZA VACCINE] Future Scheduled 2022-10-07 HEPATITIS B VACCINES [facility] Test 18:35:48 (1 of 3 - 3-dose series) [code = HEPATITIS B VACCINES (1 of 3 - 3-dose series)] Future Scheduled 2022-10-07 Pneumococcal Vaccine: [facility] Test 18:35:48 Pediatrics (0 to 5 Years) and At-Risk Patients (6 to 64 Years) (1 - PCV) [code = Pneumococcal Vaccine: Pediatrics (0 to 5 Years) and At-Risk Patients (6 to 64 Years) (1 - PCV)] Future Scheduled 2022-10-07 Hepatitis C screening [facility] Test 18:35:48 (procedure) [code = [id number]] Future Scheduled 2022-10-07 Screening for [facility] Test 18:35:48 malignant neoplasm of cervix (procedure) [code = [id number]] Future Scheduled 2022-10-07 BREAST CANCER [facility] Test 18:35:48 SCREENING [code = BREAST CANCER SCREENING] Future Scheduled 2022-10-07 COLONOSCOPY SCREENING [facility] Test 18:35:48 [code = COLONOSCOPY SCREENING] Future Scheduled 2022-10-07 SHINGLES VACCINES (1 [facility] Test 18:35:48 of 2) [code = SHINGLES VACCINES (1 of 2)] Future Scheduled 2022-10-07 COVID-19 VACCINE (3 - [facility] Test 18:35:48 Booster for Pfizer series) [code = COVID-19 VACCINE (3 - Booster for Pfizer series)] Future Scheduled 2022-10-07 INFLUENZA VACCINE [facility] Test 18:35:48 [code = INFLUENZA VACCINE] Future Scheduled 2022-09-27 HEPATITIS B VACCINES [facility] Test 10:54:00 (1 of 3 - 3-dose series) [code = HEPATITIS B VACCINES (1 of 3 - 3-dose series)] Future Scheduled 2022-09-27 Pneumococcal Vaccine: [facility] Test 10:54:00 Pediatrics (0 to 5 Years) and At-Risk Patients (6 to 64 Years) (1 - PCV) [code = Pneumococcal Vaccine: Pediatrics (0 to 5 Years) and At-Risk Patients (6 to 64 Years) (1 - PCV)] Future Scheduled 2022-09-27 Hepatitis C screening [facility] Test 10:54:00 (procedure) [code = [id number]] Future Scheduled 2022-09-27 Screening for [facility] Test 10:54:00 malignant neoplasm of cervix (procedure) [code = 019563411] Future Scheduled 2022-09-27 BREAST CANCER [facility] Test 10:54:00 SCREENING [code = BREAST CANCER SCREENING] Future Scheduled 2022-09-27 COLONOSCOPY SCREENING [facility] Test 10:54:00 [code = COLONOSCOPY SCREENING] Future Scheduled 2022-09-27 SHINGLES VACCINES (1 [facility] Test 10:54:00 of 2) [code = SHINGLES VACCINES (1 of 2)] Future Scheduled 2022-09-27 COVID-19 VACCINE (3 - [facility] Test 10:54:00 Booster for Pfizer series) [code = COVID-19 VACCINE (3 - Booster for Pfizer series)] Future Scheduled 2022-09-27 INFLUENZA VACCINE [facility] Test 10:54:00 [code = INFLUENZA VACCINE] Future Scheduled 2022-09-27 HEPATITIS B VACCINES [facility] Test 10:54:00 (1 of 3 - 3-dose series) [code = HEPATITIS B VACCINES (1 of 3 - 3-dose series)] Future Scheduled 2022-09-27 Pneumococcal Vaccine: [facility] Test 10:54:00 Pediatrics (0 to 5 Years) and At-Risk Patients (6 to 64 Years) (1 - PCV) [code = Pneumococcal Vaccine: Pediatrics (0 to 5 Years) and At-Risk Patients (6 to 64 Years) (1 - PCV)] Future Scheduled 2022-09-27 Hepatitis C screening [facility] Test 10:54:00 (procedure) [code = [id number]] Future Scheduled 2022-09-27 Screening for [facility] Test 10:54:00 malignant neoplasm of cervix (procedure) [code = 753393438] Future Scheduled 2022-09-27 BREAST CANCER [facility] Test 10:54:00 SCREENING [code = BREAST CANCER SCREENING] Future Scheduled 2022-09-27 COLONOSCOPY SCREENING [facility] Test 10:54:00 [code = COLONOSCOPY SCREENING] Future Scheduled 2022-09-27 SHINGLES VACCINES (1 [facility] Test 10:54:00 of 2) [code = SHINGLES VACCINES (1 of 2)] Future Scheduled 2022-09-27 COVID-19 VACCINE (3 - [facility] Test 10:54:00 Booster for Pfizer series) [code = COVID-19 VACCINE (3 - Booster for Pfizer series)] Future Scheduled 2022-09-27 INFLUENZA VACCINE [facility] Test 10:54:00 [code = INFLUENZA VACCINE] Future Scheduled 2022-09-27 HEPATITIS B VACCINES [facility] Test 10:54:00 (1 of 3 - 3-dose series) [code = HEPATITIS B VACCINES (1 of 3 - 3-dose series)] Future Scheduled 2022-09-27 Pneumococcal Vaccine: [facility] Test 10:54:00 Pediatrics (0 to 5 Years) and At-Risk Patients (6 to 64 Years) (1 - PCV) [code = Pneumococcal Vaccine: Pediatrics (0 to 5 Years) and At-Risk Patients (6 to 64 Years) (1 - PCV)] Future Scheduled 2022-09-27 Hepatitis C screening [facility] Test 10:54:00 (procedure) [code = [id number]] Future Scheduled 2022-09-27 Screening for [facility] Test 10:54:00 malignant neoplasm of cervix (procedure) [code = 713777401] Future Scheduled 2022-09-27 BREAST CANCER [facility] Test 10:54:00 SCREENING [code = BREAST CANCER SCREENING] Future Scheduled 2022-09-27 COLONOSCOPY SCREENING [facility] Test 10:54:00 [code = COLONOSCOPY SCREENING] Future Scheduled 2022-09-27 SHINGLES VACCINES (1 [facility] Test 10:54:00 of 2) [code = SHINGLES VACCINES (1 of 2)] Future Scheduled 2022-09-27 COVID-19 VACCINE (3 - [facility] Test 10:54:00 Booster for Pfizer series) [code = COVID-19 VACCINE (3 - Booster for Pfizer series)] Future Scheduled 2022-09-27 INFLUENZA VACCINE [facility] Test 10:54:00 [code = INFLUENZA VACCINE] Future Scheduled 2022-09-27 HEPATITIS B VACCINES [facility] Test 10:54:00 (1 of 3 - 3-dose series) [code = HEPATITIS B VACCINES (1 of 3 - 3-dose series)] Future Scheduled 2022-09-27 Pneumococcal Vaccine: [facility] Test 10:54:00 Pediatrics (0 to 5 Years) and At-Risk Patients (6 to 64 Years) (1 - PCV) [code = Pneumococcal Vaccine: Pediatrics (0 to 5 Years) and At-Risk Patients (6 to 64 Years) (1 - PCV)] Future Scheduled 2022-09-27 Hepatitis C screening [facility] Test 10:54:00 (procedure) [code = [id number]] Future Scheduled 2022-09-27 Screening for [facility] Test 10:54:00 malignant neoplasm of cervix (procedure) [code = 918228325] Future Scheduled 2022-09-27 BREAST CANCER [facility] Test 10:54:00 SCREENING [code = BREAST CANCER SCREENING] Future Scheduled 2022-09-27 COLONOSCOPY SCREENING [facility] Test 10:54:00 [code = COLONOSCOPY SCREENING] Future Scheduled 2022-09-27 SHINGLES VACCINES (1 [facility] Test 10:54:00 of 2) [code = SHINGLES VACCINES (1 of 2)] Future Scheduled 2022-09-27 COVID-19 VACCINE (3 - [facility] Test 10:54:00 Booster for Pfizer series) [code = COVID-19 VACCINE (3 - Booster for Pfizer series)] Future Scheduled 2022-09-27 INFLUENZA VACCINE [facility] Test 10:54:00 [code = INFLUENZA VACCINE] Future Scheduled 2022-09-27 HEPATITIS B VACCINES [facility] Test 10:54:00 (1 of 3 - 3-dose series) [code = HEPATITIS B VACCINES (1 of 3 - 3-dose series)] Future Scheduled 2022-09-27 Pneumococcal Vaccine: [facility] Test 10:54:00 Pediatrics (0 to 5 Years) and At-Risk Patients (6 to 64 Years) (1 - PCV) [code = Pneumococcal Vaccine: Pediatrics (0 to 5 Years) and At-Risk Patients (6 to 64 Years) (1 - PCV)] Future Scheduled 2022-09-27 Hepatitis C screening [facility] Test 10:54:00 (procedure) [code = [id number]] Future Scheduled 2022-09-27 Screening for [facility] Test 10:54:00 malignant neoplasm of cervix (procedure) [code = 169504431] Future Scheduled 2022-09-27 BREAST CANCER [facility] Test 10:54:00 SCREENING [code = BREAST CANCER SCREENING] Future Scheduled 2022-09-27 COLONOSCOPY SCREENING [facility] Test 10:54:00 [code = COLONOSCOPY SCREENING] Future Scheduled 2022-09-27 SHINGLES VACCINES (1 [facility] Test 10:54:00 of 2) [code = SHINGLES VACCINES (1 of 2)] Future Scheduled 2022-09-27 COVID-19 VACCINE (3 - [facility] Test 10:54:00 Booster for Pfizer series) [code = COVID-19 VACCINE (3 - Booster for Pfizer series)] Future Scheduled 2022-09-27 INFLUENZA VACCINE [facility] Test 10:54:00 [code = INFLUENZA VACCINE] Future Scheduled 2022-09-27 HEPATITIS B VACCINES [facility] Test 10:54:00 (1 of 3 - 3-dose series) [code = HEPATITIS B VACCINES (1 of 3 - 3-dose series)] Future Scheduled 2022-09-27 Pneumococcal Vaccine: [facility] Test 10:54:00 Pediatrics (0 to 5 Years) and At-Risk Patients (6 to 64 Years) (1 - PCV) [code = Pneumococcal Vaccine: Pediatrics (0 to 5 Years) and At-Risk Patients (6 to 64 Years) (1 - PCV)] Future Scheduled 2022-09-27 Hepatitis C screening [facility] Test 10:54:00 (procedure) [code = [id number]] Future Scheduled 2022-09-27 Screening for [facility] Test 10:54:00 malignant neoplasm of cervix (procedure) [code = 290170777] Future Scheduled 2022-09-27 BREAST CANCER [facility] Test 10:54:00 SCREENING [code = BREAST CANCER SCREENING] Future Scheduled 2022-09-27 COLONOSCOPY SCREENING [facility] Test 10:54:00 [code = COLONOSCOPY SCREENING] Future Scheduled 2022-09-27 SHINGLES VACCINES (1 [facility] Test 10:54:00 of 2) [code = SHINGLES VACCINES (1 of 2)] Future Scheduled 2022-09-27 COVID-19 VACCINE (3 - [facility] Test 10:54:00 Booster for Pfizer series) [code = COVID-19 VACCINE (3 - Booster for Pfizer series)] Future Scheduled 2022-09-27 INFLUENZA VACCINE [facility] Test 10:54:00 [code = INFLUENZA VACCINE] Future Scheduled 2022-09-08 HEPATITIS B VACCINES [facility] Test 14:22:55 (1 of 3 - 3-dose series) [code = HEPATITIS B VACCINES (1 of 3 - 3-dose series)] Future Scheduled 2022-09-08 Pneumococcal Vaccine: [facility] Test 14:22:55 Pediatrics (0 to 5 Years) and At-Risk Patients (6 to 64 Years) (1 - PCV) [code = Pneumococcal Vaccine: Pediatrics (0 to 5 Years) and At-Risk Patients (6 to 64 Years) (1 - PCV)] Future Scheduled 2022-09-08 Hepatitis C screening [facility] Test 14:22:55 (procedure) [code = 513902411] Future Scheduled 2022-09-08 Screening for [facility] Test 14:22:55 malignant neoplasm of cervix (procedure) [code = 888050395] Future Scheduled 2022-09-08 BREAST CANCER [facility] Test 14:22:55 SCREENING [code = BREAST CANCER SCREENING] Future Scheduled 2022-09-08 COLONOSCOPY SCREENING [facility] Test 14:22:55 [code = COLONOSCOPY SCREENING] Future Scheduled 2022-09-08 SHINGLES VACCINES (1 [facility] Test 14:22:55 of 2) [code = SHINGLES VACCINES (1 of 2)] Future Scheduled 2022-09-08 COVID-19 VACCINE (3 - [facility] Test 14:22:55 Booster for Pfizer series) [code = COVID-19 VACCINE (3 - Booster for Pfizer series)] Future Scheduled 2022-09-08 INFLUENZA VACCINE [facility] Test 14:22:55 [code = INFLUENZA VACCINE] Future Scheduled 2022-09-08 HEPATITIS B VACCINES [facility] Test 14:22:55 (1 of 3 - 3-dose series) [code = HEPATITIS B VACCINES (1 of 3 - 3-dose series)] Future Scheduled 2022-09-08 Pneumococcal Vaccine: [facility] Test 14:22:55 Pediatrics (0 to 5 Years) and At-Risk Patients (6 to 64 Years) (1 - PCV) [code = Pneumococcal Vaccine: Pediatrics (0 to 5 Years) and At-Risk Patients (6 to 64 Years) (1 - PCV)] Future Scheduled 2022-09-08 Hepatitis C screening [facility] Test 14:22:55 (procedure) [code = [id number]] Future Scheduled 2022-09-08 Screening for [facility] Test 14:22:55 malignant neoplasm of cervix (procedure) [code = 058654440] Future Scheduled 2022-09-08 BREAST CANCER [facility] Test 14:22:55 SCREENING [code = BREAST CANCER SCREENING] Future Scheduled 2022-09-08 COLONOSCOPY SCREENING [facility] Test 14:22:55 [code = COLONOSCOPY SCREENING] Future Scheduled 2022-09-08 SHINGLES VACCINES (1 [facility] Test 14:22:55 of 2) [code = SHINGLES VACCINES (1 of 2)] Future Scheduled 2022-09-08 COVID-19 VACCINE (3 - [facility] Test 14:22:55 Booster for Pfizer series) [code = COVID-19 VACCINE (3 - Booster for Pfizer series)] Future Scheduled 2022-09-08 INFLUENZA VACCINE [facility] Test 14:22:55 [code = INFLUENZA VACCINE] Future Scheduled 2022-09-08 HEPATITIS B VACCINES [facility] Test 14:22:55 (1 of 3 - 3-dose series) [code = HEPATITIS B VACCINES (1 of 3 - 3-dose series)] Future Scheduled 2022-09-08 Pneumococcal Vaccine: [facility] Test 14:22:55 Pediatrics (0 to 5 Years) and At-Risk Patients (6 to 64 Years) (1 - PCV) [code = Pneumococcal Vaccine: Pediatrics (0 to 5 Years) and At-Risk Patients (6 to 64 Years) (1 - PCV)] Future Scheduled 2022-09-08 Hepatitis C screening [facility] Test 14:22:55 (procedure) [code = 755894024] Future Scheduled 2022-09-08 Screening for [facility] Test 14:22:55 malignant neoplasm of cervix (procedure) [code = 365974067] Future Scheduled 2022-09-08 BREAST CANCER [facility] Test 14:22:55 SCREENING [code = BREAST CANCER SCREENING] Future Scheduled 2022-09-08 COLONOSCOPY SCREENING [facility] Test 14:22:55 [code = COLONOSCOPY SCREENING] Future Scheduled 2022-09-08 SHINGLES VACCINES (1 [facility] Test 14:22:55 of 2) [code = SHINGLES VACCINES (1 of 2)] Future Scheduled 2022-09-08 COVID-19 VACCINE (3 - [facility] Test 14:22:55 Booster for Pfizer series) [code = COVID-19 VACCINE (3 - Booster for Pfizer series)] Future Scheduled 2022-09-08 INFLUENZA VACCINE [facility] Test 14:22:55 [code = INFLUENZA VACCINE] Future Scheduled 2022-09-08 HEPATITIS B VACCINES [facility] Test 14:22:55 (1 of 3 - 3-dose series) [code = HEPATITIS B VACCINES (1 of 3 - 3-dose series)] Future Scheduled 2022-09-08 Pneumococcal Vaccine: [facility] Test 14:22:55 Pediatrics (0 to 5 Years) and At-Risk Patients (6 to 64 Years) (1 - PCV) [code = Pneumococcal Vaccine: Pediatrics (0 to 5 Years) and At-Risk Patients (6 to 64 Years) (1 - PCV)] Future Scheduled 2022-09-08 Hepatitis C screening [facility] Test 14:22:55 (procedure) [code = [id number]] Future Scheduled 2022-09-08 Screening for [facility] Test 14:22:55 malignant neoplasm of cervix (procedure) [code = 121297909] Future Scheduled 2022-09-08 BREAST CANCER [facility] Test 14:22:55 SCREENING [code = BREAST CANCER SCREENING] Future Scheduled 2022-09-08 COLONOSCOPY SCREENING [facility] Test 14:22:55 [code = COLONOSCOPY SCREENING] Future Scheduled 2022-09-08 SHINGLES VACCINES (1 [facility] Test 14:22:55 of 2) [code = SHINGLES VACCINES (1 of 2)] Future Scheduled 2022-09-08 COVID-19 VACCINE (3 - [facility] Test 14:22:55 Booster for Pfizer series) [code = COVID-19 VACCINE (3 - Booster for Pfizer series)] Future Scheduled 2022-09-08 INFLUENZA VACCINE [facility] Test 14:22:55 [code = INFLUENZA VACCINE] Future Scheduled 2022-09-08 HEPATITIS B VACCINES [facility] Test 14:22:55 (1 of 3 - 3-dose series) [code = HEPATITIS B VACCINES (1 of 3 - 3-dose series)] Future Scheduled 2022-09-08 Pneumococcal Vaccine: [facility] Test 14:22:55 Pediatrics (0 to 5 Years) and At-Risk Patients (6 to 64 Years) (1 - PCV) [code = Pneumococcal Vaccine: Pediatrics (0 to 5 Years) and At-Risk Patients (6 to 64 Years) (1 - PCV)] Future Scheduled 2022-09-08 Hepatitis C screening [facility] Test 14:22:55 (procedure) [code = [id number]] Future Scheduled 2022-09-08 Screening for [facility] Test 14:22:55 malignant neoplasm of cervix (procedure) [code = 751980228] Future Scheduled 2022-09-08 BREAST CANCER [facility] Test 14:22:55 SCREENING [code = BREAST CANCER SCREENING] Future Scheduled 2022-09-08 COLONOSCOPY SCREENING [facility] Test 14:22:55 [code = COLONOSCOPY SCREENING] Future Scheduled 2022-09-08 SHINGLES VACCINES (1 [facility] Test 14:22:55 of 2) [code = SHINGLES VACCINES (1 of 2)] Future Scheduled 2022-09-08 COVID-19 VACCINE (3 - [facility] Test 14:22:55 Booster for Pfizer series) [code = COVID-19 VACCINE (3 - Booster for Pfizer series)] Future Scheduled 2022-09-08 INFLUENZA VACCINE [facility] Test 14:22:55 [code = INFLUENZA VACCINE] Future Scheduled 2022-09-08 HEPATITIS B VACCINES [facility] [facility] Test 14:22:55 (1 of 3 - 3-dose series) [code = HEPATITIS B VACCINES (1 of 3 - 3-dose series)] Future Scheduled 2022-09-08 Pneumococcal Vaccine: [facility] Test 14:22:55 Pediatrics (0 to 5 Years) and At-Risk Patients (6 to 64 Years) (1 - PCV) [code = Pneumococcal Vaccine: Pediatrics (0 to 5 Years) and At-Risk Patients (6 to 64 Years) (1 - PCV)] Future Scheduled 2022-09-08 Hepatitis C screening [facility] Test 14:22:55 (procedure) [code = [id number]] Future Scheduled 2022-09-08 Screening for [facility] Test 14:22:55 malignant neoplasm of cervix (procedure) [code = [id number]] Future Scheduled 2022-09-08 BREAST CANCER [facility] Test 14:22:55 SCREENING [code = BREAST CANCER SCREENING] Future Scheduled 2022-09-08 COLONOSCOPY SCREENING [facility] Test 14:22:55 [code = COLONOSCOPY SCREENING] Future Scheduled 2022-09-08 SHINGLES VACCINES (1 Met [facility] Test 14:22:55 of 2) [code = SHINGLES VACCINES (1 of 2)] Future Scheduled 2022-09-08 COVID-19 VACCINE (3 - [facility] Test 14:22:55 Booster for Pfizer series) [code = COVID-19 VACCINE (3 - Booster for Pfizer series)] Future Scheduled 2022-09-08 INFLUENZA VACCINE [facility] Test 14:22:55 [code = INFLUENZA VACCINE] Future Scheduled 2022-09-08 HEPATITIS B VACCINES Met [facility] Test 14:22:55 (1 of 3 - 3-dose series) [code = HEPATITIS B VACCINES (1 of 3 - 3-dose series)] Future Scheduled 2022-09-08 Pneumococcal Vaccine: [facility] Test 14:22:55 Pediatrics (0 to 5 Years) and At-Risk Patients (6 to 64 Years) (1 - PCV) [code = Pneumococcal Vaccine: Pediatrics (0 to 5 Years) and At-Risk Patients (6 to 64 Years) (1 - PCV)] Future Scheduled 2022-09-08 Hepatitis C screening [facility] Test 14:22:55 (procedure) [code = [id number]] Future Scheduled 2022-09-08 Screening for [facility] Test 14:22:55 malignant neoplasm of cervix (procedure) [code = [id number]] Future Scheduled 2022-09-08 BREAST CANCER [facility] Test 14:22:55 SCREENING [code = BREAST CANCER SCREENING] Future Scheduled 2022-09-08 COLONOSCOPY SCREENING [facility] Test 14:22:55 [code = COLONOSCOPY SCREENING] Future Scheduled 2022-09-08 SHINGLES VACCINES (1 Met [facility] Test 14:22:55 of 2) [code = SHINGLES VACCINES (1 of 2)] Future Scheduled 2022-09-08 COVID-19 VACCINE (3 - [facility] Test 14:22:55 Booster for Pfizer series) [code = COVID-19 VACCINE (3 - Booster for Pfizer series)] Future Scheduled 2022-09-08 INFLUENZA VACCINE [facility] Test 14:22:55 [code = INFLUENZA VACCINE] Future Scheduled 2022-09-07 HEPATITIS B VACCINES [facility] Test 14:14:17 (1 of 3 - 3-dose series) [code = HEPATITIS B VACCINES (1 of 3 - 3-dose series)] Future Scheduled 2022-09-07 Pneumococcal Vaccine: [facility] Test 14:14:17 Pediatrics (0 to 5 Years) and At-Risk Patients (6 to 64 Years) (1 - PCV) [code = Pneumococcal Vaccine: Pediatrics (0 to 5 Years) and At-Risk Patients (6 to 64 Years) (1 - PCV)] Future Scheduled 2022-09-07 Hepatitis C screening [facility] Test 14:14:17 (procedure) [code = [id number]] Future Scheduled 2022-09-07 Screening for [facility] Test 14:14:17 malignant neoplasm of cervix (procedure) [code = 444949722] Future Scheduled 2022-09-07 BREAST CANCER [facility] Test 14:14:17 SCREENING [code = BREAST CANCER SCREENING] Future Scheduled 2022-09-07 COLONOSCOPY SCREENING [facility] Test 14:14:17 [code = COLONOSCOPY SCREENING] Future Scheduled 2022-09-07 SHINGLES VACCINES (1 Met [facility] Test 14:14:17 of 2) [code = SHINGLES VACCINES (1 of 2)] Future Scheduled 2022-09-07 COVID-19 VACCINE (3 - [facility] Test 14:14:17 Booster for Pfizer series) [code = COVID-19 VACCINE (3 - Booster for Pfizer series)] Future Scheduled 2022-09-07 INFLUENZA VACCINE [facility] Test 14:14:17 [code = INFLUENZA VACCINE] Future Scheduled 2022-09-06 BREAST CANCER [facility] Test 15:04:07 SCREENING [code = BREAST CANCER SCREENING] Future Scheduled 2022-09-06 COLONOSCOPY SCREENING [facility] Test 15:04:07 [code = COLONOSCOPY SCREENING] Future Scheduled 2022-09-06 SHINGLES VACCINES (1 Met [facility] Test 15:04:07 of 2) [code = SHINGLES VACCINES (1 of 2)] Future Scheduled 2022-09-06 COVID-19 VACCINE (3 - [facility] Test 15:04:07 Booster for Pfizer series) [code = COVID-19 VACCINE (3 - Booster for Pfizer series)] Future Scheduled 2022-09-06 INFLUENZA VACCINE [facility] Test 15:04:07 [code = INFLUENZA VACCINE] Future Scheduled 2022-09-06 HEPATITIS B VACCINES Met [facility] Test 15:04:07 (1 of 3 - 3-dose series) [code = HEPATITIS B VACCINES (1 of 3 - 3-dose series)] Future Scheduled 2022-09-06 Pneumococcal Vaccine: [facility] Test 15:04:07 Pediatrics (0 to 5 Years) and At-Risk Patients (6 to 64 Years) (1 - PCV) [code = Pneumococcal Vaccine: Pediatrics (0 to 5 Years) and At-Risk Patients (6 to 64 Years) (1 - PCV)] Future Scheduled 2022-09-06 Hepatitis C screening [facility] Test 15:04:07 (procedure) [code = [id number]] Future Scheduled 2022-09-06 Screening for [facility] Test 15:04:07 malignant neoplasm of cervix (procedure) [code = 331911638] Future Scheduled 2022-08-09 HEPATITIS B VACCINES Met [facility] Test 21:32:45 (1 of 3 - 3-dose series) [code = HEPATITIS B VACCINES (1 of 3 - 3-dose series)] Future Scheduled 2022-08-09 Pneumococcal Vaccine: [facility] Test 21:32:45 Pediatrics (0 to 5 Years) and At-Risk Patients (6 to 64 Years) (1 - PCV) [code = Pneumococcal Vaccine: Pediatrics (0 to 5 Years) and At-Risk Patients (6 to 64 Years) (1 - PCV)] Future Scheduled 2022-08-09 Hepatitis C screening [facility] Test 21:32:45 (procedure) [code = 582554976] Future Scheduled 2022-08-09 Screening for [facility] Test 21:32:45 malignant neoplasm of cervix (procedure) [code = 475385414] Future Scheduled 2022-08-09 BREAST CANCER [facility] Test 21:32:45 SCREENING [code = BREAST CANCER SCREENING] Future Scheduled 2022-08-09 COLONOSCOPY SCREENING [facility] Test 21:32:45 [code = COLONOSCOPY SCREENING] Future Scheduled 2022-08-09 SHINGLES VACCINES (1 Met [facility] Test 21:32:45 of 2) [code = SHINGLES VACCINES (1 of 2)] Future Scheduled 2022-08-09 COVID-19 VACCINE (3 - [facility] Test 21:32:45 Booster for Pfizer series) [code = COVID-19 VACCINE (3 - Booster for Pfizer series)] Future Scheduled 2022-08-09 INFLUENZA VACCINE [facility] Test 21:32:45 [code = INFLUENZA VACCINE] Future Scheduled 2022-08-09 HEPATITIS B VACCINES Met [facility] Test 21:32:45 (1 of 3 - 3-dose series) [code = HEPATITIS B VACCINES (1 of 3 - 3-dose series)] Future Scheduled 2022-08-09 Pneumococcal Vaccine: [facility] Test 21:32:45 Pediatrics (0 to 5 Years) and At-Risk Patients (6 to 64 Years) (1 - PCV) [code = Pneumococcal Vaccine: Pediatrics (0 to 5 Years) and At-Risk Patients (6 to 64 Years) (1 - PCV)] Future Scheduled 2022-08-09 Hepatitis C screening [facility] Test 21:32:45 (procedure) [code = 364072330] Future Scheduled 2022-08-09 Screening for [facility] Test 21:32:45 malignant neoplasm of cervix (procedure) [code = 449736690] Future Scheduled 2022-08-09 BREAST CANCER [facility] Test 21:32:45 SCREENING [code = BREAST CANCER SCREENING] Future Scheduled 2022-08-09 COLONOSCOPY SCREENING [facility] Test 21:32:45 [code = COLONOSCOPY SCREENING] Future Scheduled 2022-08-09 SHINGLES VACCINES ([address] [facility] Test 21:32:45 of 2) [code = SHINGLES VACCINES (1 of 2)] Future Scheduled 2022-08-09 COVID-19 VACCINE (3 - [facility] Test 21:32:45 Booster for Pfizer series) [code = COVID-19 VACCINE (3 - Booster for Pfizer series)] Future Scheduled 2022-08-09 [facility] 21:32:45 [code = INFLUENZA VACCINE] Future Scheduled 2022-05-22 [facility]MM [facility] Test 00:00:00 (>/= 19 yrs) [code = IMM Influenza Seasonal (>/= 19 yrs)] Future Scheduled 2022-05-22 IMM Influenza Seasonal [facility] Test 00:00:00 (>/= 19 yrs) [code = IMM Influenza Seasonal (>/= 19 yrs)] Future Scheduled 2022-05-22 IMM Influenza [facility]al [facility] Test 00:00:00 (>/= 19 yrs) [code = IMM Influenza Seasonal (>/= 19 yrs)] Future Scheduled 2022-05-22 IMM Influenza [facility]al [facility] Test 00:00:00 (>/= 19 yrs) [code = IMM Influenza Seasonal (>/= 19 yrs)] Future Scheduled 2022-05-22 IMM Influenza [facility]al [facility] Test 00:00:00 (>/= 19 yrs) [code = IMM Influenza Seasonal (>/= 19 yrs)] Future Scheduled 2022-05-22 IMM Influenza [facility]al [facility] Test 00:00:00 (>/= 19 yrs) [code = IMM Influenza Seasonal (>/= 19 yrs)] Future Scheduled 2022-05-22 IMM Influenza [facility] Test 00:00:00 (>/= 19 yrs) [code = IMM Influenza Seasonal (>/= 19 yrs)] Future Scheduled 2022-05-22 IMM Influ[facility] Test 00:00:00 (>/= 19 yrs) [code = IMM Influenza Seasonal (>/= 19 yrs)] Future Scheduled 2022-05-22 IMM Influenza [facility] Test 00:00:00 (>/= 19 yrs) [code = IMM Influenza Seasonal (>/= 19 yrs)] Future Scheduled 2022-05-22 IMM Influ[facility] Test 00:00:00 (>/= 19 yrs) [code = IMM Influenza Seasonal (>/= 19 yrs)] Future Scheduled 2022-05-22 IMM [facility] Test 00:00:00 (>/= 19 yrs) [code = IMM Influenza Seasonal (>/= 19 yrs)] Future Scheduled 2022-05-22 IMM Influ[facility] Test 00:00:00 (>/= 19 yrs) [code = IMM Influenza Seasonal (>/= 19 yrs)] Future Scheduled 2022-05-22 [facility]MM Influ[facility] Test 00:00:00 (>/= 19 yrs) [code = IMM Influenza Seasonal (>/= 19 yrs)] Future Scheduled 2022-05-22 [facility]MM [facility] Test 00:00:00 (>/= 19 yrs) [code = IMM Influenza Seasonal (>/= 19 yrs)] Future Scheduled 2022-05-22 [facility]MM Influ[facility] Test 00:00:00 (>/= 19 yrs) [code = IMM Influenza Seasonal (>/= 19 yrs)] Future Scheduled 2022-05-22 [facility]MM [facility] 00:00:00 (>/= 19 yrs) [code = IMM Influenza Seasonal (>/= 19 yrs)] Future Scheduled 2022-05-22 [facility]MM Influ[facility] Test 00:00:00 (>/= 19 yrs) [code = IMM Influenza Seasonal (>/= 19 yrs)] Future Scheduled 2022-05-22 [facility]MM [facility] Test 00:00:00 (>/= 19 yrs) [code = IMM Influenza Seasonal (>/= 19 yrs)] Future Scheduled 2022-05-22 [facility]MM [facility] Test 00:00:00 (>/= 19 yrs) [code = IMM Influenza Seasonal (>/= 19 yrs)] Future Scheduled 2022-04-24 HEPATITIS B VACCINES [facility] Test 11:34:19 (1 of 3 - 3-dose series) [code = HEPATITIS B VACCINES (1 of 3 - 3-dose series)] Future Scheduled 2022-04-24 Pneumococcal Vaccine: [facility] Test 11:34:19 Pediatrics (0 to 5 Years) and At-Risk Patients (6 to 64 Years) (1 - PCV) [code = Pneumococcal Vaccine: Pediatrics (0 to 5 Years) and At-Risk Patients (6 to 64 Years) (1 - PCV)] Future Scheduled 2022-04-24 Hepatitis C screening [facility] Test 11:34:19 (procedure) [code = 390911175] Future Scheduled 2022-04-24 Screening for [facility] Test 11:34:19 malignant neoplasm of cervix (procedure) [code = 543067357] Future Scheduled 2022-04-24 BREAST CANCER [facility] Test 11:34:19 SCREENING [code = BREAST CANCER SCREENING] Future Scheduled 2022-04-24 COLONOSCOPY SCREENING [facility] Test 11:34:19 [code = COLONOSCOPY SCREENING] Future Scheduled 2022-04-24 SHINGLES VACCINES (1 Met [facility] Test 11:34:19 of 2) [code = SHINGLES VACCINES (1 of 2)] Future Scheduled 2022-04-24 COVID-19 VACCINE (3 - [facility] Test 11:34:19 Booster for Pfizer series) [code = COVID-19 VACCINE (3 - Booster for Pfizer series)] Future Scheduled 2022-04-24 INFLUENZA VACCINE [facility] Test 11:34:19 [code = INFLUENZA VACCINE] Future Scheduled 2021-05-12 COVID-19 Vaccine (3 - [facility] Test 00:00:00 Booster for Pfizer series) [code = COVID-19 Vaccine (3 - Booster for Pfizer series)] Future Scheduled 2021-02-04 COVID-19 Vaccine (3 - [facility] Test 00:00:00 Booster for Pfizer series) [code = COVID-19 Vaccine (3 - Booster for Pfizer series)] Future Scheduled 2021-02-04 COVID-19 Vaccine (3 - [facility] Test 00:00:00 Booster for Pfizer series) [code = COVID-19 Vaccine (3 - Booster for Pfizer series)] Future Scheduled 2021-02-04 COVID-19 Vaccine (3 - [facility] Test 00:00:00 Booster for Pfizer series) [code = COVID-19 Vaccine (3 - Booster for Pfizer series)] Future Scheduled 2021-02-04 COVID-19 Vaccine (3 - [facility] Test 00:00:00 Booster for Pfizer series) [code = COVID-19 Vaccine (3 - Booster for Pfizer series)] Future Scheduled 2021-02-04 COVID-19 Vaccine (3 - [facility] Test 00:00:00 Booster for Pfizer series) [code = COVID-19 Vaccine (3 - Booster for Pfizer series)] Future Scheduled 2021-02-04 COVID-19 Vaccine (3 - [facility] Test 00:00:00 Booster for Pfizer series) [code = COVID-19 Vaccine (3 - Booster for Pfizer series)] Future Scheduled 2021-02-04 COVID-19 Vaccine (3 - [facility] Test 00:00:00 Booster for Pfizer series) [code = COVID-19 Vaccine (3 - Booster for Pfizer series)] Future Scheduled 2021-02-04 COVID-19 Vaccine (3 - [facility] Test 00:00:00 Booster for Pfizer series) [code = COVID-19 Vaccine (3 - Booster for Pfizer series)] Future Scheduled 2021-02-04 COVID-19 Vaccine (3 - [facility] Test 00:00:00 Booster for Pfizer series) [code = COVID-19 Vaccine (3 - Booster for Pfizer series)] Future Scheduled 2021-02-04 COVID-19 Vaccine (3 - [facility] Test 00:00:00 Booster for Pfizer series) [code = COVID-19 Vaccine (3 - Booster for Pfizer series)] Future Scheduled 2021-02-04 COVID-19 Vaccine (3 - [facility] Test 00:00:00 Booster for Pfizer series) [code = COVID-19 Vaccine (3 - Booster for Pfizer series)] Future Scheduled 2021-02-04 COVID-19 Vaccine (3 - [facility] Test 00:00:00 Booster for Pfizer series) [code = COVID-19 Vaccine (3 - Booster for Pfizer series)] Future Scheduled 2021-02-04 COVID-19 Vaccine (3 - [facility] Test 00:00:00 Booster for Pfizer series) [code = COVID-19 Vaccine (3 - Booster for Pfizer series)] Future Scheduled 2021-02-04 COVID-19 Vaccine (3 - [facility] Test 00:00:00 Booster for Pfizer series) [code = COVID-19 Vaccine (3 - Booster for Pfizer series)] Future Scheduled 2021-02-04 COVID-19 Vaccine (3 - [facility] Test 00:00:00 Booster for Pfizer series) [code = COVID-19 Vaccine (3 - Booster for Pfizer series)] Future Scheduled 2021-02-04 COVID-19 Vaccine (3 - [facility] Test 00:00:00 Booster for Pfizer series) [code = COVID-19 Vaccine (3 - Booster for Pfizer series)] Future Scheduled 2021-02-04 COVID-19 Vaccine (3 - [facility] Test 00:00:00 Booster for Pfizer series) [code = COVID-19 Vaccine (3 - Booster for Pfizer series)] Future Scheduled 2021-02-04 COVID-19 Vaccine (3 - [facility] Test 00:00:00 Booster for Pfizer series) [code = COVID-19 Vaccine (3 - Booster for Pfizer series)] Future Scheduled 2012 Screening for [facility] Test 00:00:00 malignant neoplasm of colon (procedure) [code = 300183162] Future Scheduled 2012 Screening for [facility] Test 00:00:00 malignant neoplasm of colon (procedure) [code = 437599014] Future Scheduled 2012 Screening for [facility] Test 00:00:00 malignant neoplasm of colon (procedure) [code = 017231217] Future Scheduled 2012 Screening for [facility] Test 00:00:00 malignant neoplasm of colon (procedure) [code = 337881609] Future Scheduled 2012 Screening for [facility] Test 00:00:00 malignant neoplasm of colon (procedure) [code = 655196243] Future Scheduled 2012 Screening for [facility] Test 00:00:00 malignant neoplasm of colon (procedure) [code = 322469511] Future Scheduled 2012 Screening for [facility] Test 00:00:00 malignant neoplasm of colon (procedure) [code = 350695622] Future Scheduled 2012 Screening for [facility] Test 00:00:00 malignant neoplasm of colon (procedure) [code = 472510485] Future Scheduled 2012 Screening for [facility] Test 00:00:00 malignant neoplasm of colon (procedure) [code = 451891993] Future Scheduled 2012 Screening for [facility] Test 00:00:00 malignant neoplasm of colon (procedure) [code = 525727707] Future Scheduled 2012 Screening for [facility] Test 00:00:00 malignant neoplasm of colon (procedure) [code = 863490524] Future Scheduled 2012 Screening for [facility] Test 00:00:00 malignant neoplasm of colon (procedure) [code = 405610904] Future Scheduled 2012 Screening for [facility] Test 00:00:00 malignant neoplasm of colon (procedure) [code = 452272013] Future Scheduled 2012 Screening for [facility] Test 00:00:00 malignant neoplasm of colon (procedure) [code = 944536020] Future Scheduled 2012 Screening for [facility] Test 00:00:00 malignant neoplasm of colon (procedure) [code = 102288476] Future Scheduled 2012 Screening for [facility] Test 00:00:00 malignant neoplasm of colon (procedure) [code = 993867197] Future Scheduled 2012 Screening for [facility] Test 00:00:00 malignant neoplasm of colon (procedure) [code = 882455772] Future Scheduled 2012 Screening for [facility] Test 00:00:00 malignant neoplasm of colon (procedure) [code = 733484217] Future Scheduled 2012 Screening for [facility] Test 00:00:00 malignant neoplasm of colon (procedure) [code = 977645763] Future Scheduled 2002 [facility] 00:00:00 (Yearly) [code = Breast Cancer Scrn (Yearly)] Future Scheduled 2002 [facility] 00:00:00 (Yearly) [code = Breast Cancer Scrn (Yearly)] Future Scheduled 2002 [facility] 00:00:00 (Yearly) [code = Breast Cancer Scrn (Yearly)] Future Scheduled 2002 [facility] 00:00:00 (Yearly) [code = Breast Cancer Scrn (Yearly)] Future Scheduled 2002 [facility] 00:00:00 (Yearly) [code = Breast Cancer Scrn (Yearly)] Future Scheduled 2002 [facility] 00:00:00 (Yearly) [code = Breast Cancer Scrn (Yearly)] Future Scheduled 2002 [facility] 00:00:00 (Yearly) [code = Breast Cancer Scrn (Yearly)] Future Scheduled 2002 [facility] 00:00:00 (Yearly) [code = Breast Cancer Scrn (Yearly)] Future Scheduled 2002 [facility] 00:00:00 (Yearly) [code = Breast Cancer Scrn (Yearly)] Future Scheduled 2002 [facility] 00:00:00 (Yearly) [code = Breast Cancer Scrn (Yearly)] Future Scheduled 2002 [facility] 00:00:00 (Yearly) [code = Breast Cancer Scrn (Yearly)] Future Scheduled 2002 [facility] 00:00:00 (Yearly) [code = Breast Cancer Scrn (Yearly)] Future Scheduled 2002 [facility] 00:00:00 (Yearly) [code = Breast Cancer Scrn (Yearly)] Future Scheduled 2002 [facility] 00:00:00 (Yearly) [code = Breast Cancer Scrn (Yearly)] Future Scheduled 2002 [facility] 00:00:00 (Yearly) [code = Breast Cancer Scrn (Yearly)] Future Scheduled 2002 [facility] 00:00:00 (Yearly) [code = Breast Cancer Scrn (Yearly)] Future Scheduled 2002 [facility] 00:00:00 (Yearly) [code = Breast Cancer Scrn (Yearly)] Future Scheduled 2002 [facility] 00:00:00 (Yearly) [code = Breast Cancer Scrn (Yearly)] Future Scheduled 2002 Breast Cancer [facility] Test 00:00:00 (Yearly) [code = Breast Cancer Scrn (Yearly)] Future Scheduled 1992 Screening for [facility] 00:00:00 malignant neoplasm of cervix (procedure) [code = 414228104] Future Scheduled 1992 Screening for [facility] Test 00:00:00 malignant neoplasm of cervix (procedure) [code = 372768304] Future Scheduled 1992 Screening for [facility] Test 00:00:00 malignant neoplasm of cervix (procedure) [code = 638698989] Future Scheduled 1992 Screening for [facility] Test 00:00:00 malignant neoplasm of cervix (procedure) [code = 647298768] Future Scheduled 1992 Screening for [facility] Test 00:00:00 malignant neoplasm of cervix (procedure) [code = 536104837] Future Scheduled 1992 Screening for [facility] Test 00:00:00 malignant neoplasm of cervix (procedure) [code = 794159358] Future Scheduled 1992 Screening for [facility] Test 00:00:00 malignant neoplasm of cervix (procedure) [code = 583363794] Future Scheduled 1992 Screening for [facility] Test 00:00:00 malignant neoplasm of cervix (procedure) [code = 021597974] Future Scheduled 1992 Screening for [facility] 00:00:00 malignant neoplasm of cervix (procedure) [code = 379890087] Future Scheduled 1992 Screening for [facility] 00:00:00 malignant neoplasm of cervix (procedure) [code = 331448739] Future Scheduled 1992 Screening for [facility] 00:00:00 malignant neoplasm of cervix (procedure) [code = 203746827] Future Scheduled 1992 Screening for [facility] Test 00:00:00 malignant neoplasm of cervix (procedure) [code = 222944075] Future Scheduled 1992 Screening for [facility] Test 00:00:00 malignant neoplasm of cervix (procedure) [code = 322844360] Future Scheduled 1992 Screening for [facility] Test 00:00:00 malignant neoplasm of cervix (procedure) [code = 976351282] Future Scheduled 1992 Screening for [facility] Test 00:00:00 malignant neoplasm of cervix (procedure) [code = 572799611] Future Scheduled 1992 Screening for [facility] Test 00:00:00 malignant neoplasm of cervix (procedure) [code = 599580138] Future Scheduled 1992 Screening for [facility] Test 00:00:00 malignant neoplasm of cervix (procedure) [code = 892678355] Future Scheduled 1992 Screening for [facility] Test 00:00:00 malignant neoplasm of cervix (procedure) [code = 076188516] Future Scheduled 1992 Screening for [facility] Test 00:00:00 malignant neoplasm of cervix (procedure) [code = 587345763] Future Scheduled 1992 Screening for [facility] Test 00:00:00 malignant neoplasm of cervix (procedure) [code = 857715903] Future Scheduled 1992 Screening for [facility] 00:00:00 malignant neoplasm of cervix (procedure) [code = 566651210] Future Scheduled 1992 Screening for [facility] Test 00:00:00 malignant neoplasm of cervix (procedure) [code = 226495083] Future Scheduled 1992 Screening for [facility] Test 00:00:00 malignant neoplasm of cervix (procedure) [code = 882197736] Future Scheduled 1992 Screening for [facility] 00:00:00 malignant neoplasm of cervix (procedure) [code = 264334536] Future Scheduled 1992 Screening for [facility] 00:00:00 malignant neoplasm of cervix (procedure) [code = 041722148] Future Scheduled 1992 Screening for [facility] 00:00:00 malignant neoplasm of cervix (procedure) [code = 579398453] Future Scheduled 1992 Screening for [facility] Test 00:00:00 malignant neoplasm of cervix (procedure) [code = 939443245] Future Scheduled 1992 Screening for [facility] Test 00:00:00 malignant neoplasm of cervix (procedure) [code = 325691665] Future Scheduled 1992 Screening for [facility] 00:00:00 malignant neoplasm of cervix (procedure) [code = 095239180] Future Scheduled 1992 Screening for [facility] 00:00:00 malignant neoplasm of cervix (procedure) [code = 732013852] Future Scheduled 1992 Screening for [facility] 00:00:00 malignant neoplasm of cervix (procedure) [code = 931014455] Future Scheduled 1992 Screening for [facility] 00:00:00 malignant neoplasm of cervix (procedure) [code = 534408691] Future Scheduled 1992 Screening for [facility] 00:00:00 malignant neoplasm of cervix (procedure) [code = 982612545] Future Scheduled 1992 Screening for [facility] 00:00:00 malignant neoplasm of cervix (procedure) [code = 828376625] Future Scheduled 1992 Screening for [facility] 00:00:00 malignant neoplasm of cervix (procedure) [code = 336849970] Future Scheduled 1992 Screening for [facility] 00:00:00 malignant neoplasm of cervix (procedure) [code = 929942479] Future Scheduled 1992 Screening for [facility] 00:00:00 malignant neoplasm of cervix (procedure) [code = 501020256] Future Scheduled 1992 Screening for [facility] 00:00:00 malignant neoplasm of cervix (procedure) [code = 366335948] Future Scheduled 1968 Imm Pneumococcal 0-64 [facility] 00:00:00 (1 - PCV) [code = Imm Pneumococcal 0-64 (1 - PCV)] Future Scheduled 1968 Imm Pneumococcal 0-64 [facility] 00:00:00 (1 - PCV) [code = Imm Pneumococcal 0-64 (1 - PCV)] Future Scheduled 1968 Imm Pneumococcal 0-64 [facility] 00:00:00 (1 - PCV) [code = Imm Pneumococcal 0-64 (1 - PCV)] Future Scheduled 1968 Imm Pneumococcal 0-64 [facility] 00:00:00 (1 - PCV) [code = Imm Pneumococcal 0-64 (1 - PCV)] Future Scheduled 1968 Imm Pneumococcal 0-64 [facility] 00:00:00 (1 - PCV) [code = Imm Pneumococcal 0-64 (1 - PCV)] Future Scheduled 1968 Imm Pneumococcal 0-64 [facility] 00:00:00 (1 - PCV) [code = Imm Pneumococcal 0-64 (1 - PCV)] Future Scheduled 1968 Imm Pneumococcal 0-64 [facility] 00:00:00 (1 - PCV) [code = Imm Pneumococcal 0-64 (1 - PCV)] Future Scheduled 1968 Imm Pneumococcal 0-64 [facility] 00:00:00 (1 - PCV) [code = Imm Pneumococcal 0-64 (1 - PCV)] Future Scheduled 1968 Imm Pneumococcal 0-64 [facility] 00:00:00 (1 - PCV) [code = Imm Pneumococcal 0-64 (1 - PCV)] Future Scheduled 1968 Imm Pneumococcal 0-64 [facility] 00:00:00 (1 - PCV) [code = Imm Pneumococcal 0-64 (1 - PCV)] Future Scheduled 1968 Imm Pneumococcal 0-64 [facility] 00:00:00 (1 - PCV) [code = Imm Pneumococcal 0-64 (1 - PCV)] Future Scheduled 1968 Imm Pneumococcal 0-64 [facility] 00:00:00 (1 - PCV) [code = Imm Pneumococcal 0-64 (1 - PCV)] Future Scheduled 1968 Imm Pneumococcal 0-64 [facility] 00:00:00 (1 - PCV) [code = Imm Pneumococcal 0-64 (1 - PCV)] Future Scheduled 1968 Imm Pneumococcal 0-64 [facility] 00:00:00 (1 - PCV) [code = Imm Pneumococcal 0-64 (1 - PCV)] Future Scheduled 1968 Imm Pneumococcal 0-64 [facility] 00:00:00 (1 - PCV) [code = Imm Pneumococcal 0-64 (1 - PCV)] Future Scheduled 1968 Imm Pneumococcal 0-64 [facility] 00:00:00 (1 - PCV) [code = Imm Pneumococcal 0-64 (1 - PCV)] Future Scheduled 1968 Imm Pneumococcal 0-64 [facility] 00:00:00 (1 - PCV) [code = Imm Pneumococcal 0-64 (1 - PCV)] Future Scheduled 1968 Imm Pneumococcal 0-64 [facility] 00:00:00 (1 - PCV) [code = Imm Pneumococcal 0-64 (1 - PCV)] Future Scheduled 1968 Imm Pneumococcal 0-64 [facility] 00:00:00 (1 - PCV) [code = Imm Pneumococcal 0-64 (1 - PCV)] Future Scheduled 1962 Chronic Opioid Use- [facility] 00:00:00 Routine Urine Drug Screen [code = Chronic Opioid Use- Routine Urine Drug Screen] Future Scheduled 1962 Chronic Opioid Use- [facility] 00:00:00 Routine Urine Drug Screen [code = Chronic Opioid Use- Routine Urine Drug Screen] Future Scheduled 1962 Chronic Opioid Use- [facility] 00:00:00 Routine Urine Drug Screen [code = Chronic Opioid Use- Routine Urine Drug Screen] Future Scheduled 1962 Fluoride Varnish [[facility] 00:00:00 = Fluoride Varnish] Future Scheduled 1962 Chronic Opioid Use- [facility] 00:00:00 Routine Urine Drug Screen [code = Chronic Opioid Use- Routine Urine Drug Screen] Future Scheduled 1962 Chronic Opioid Use- [facility] 00:00:00 Routine Urine Drug Screen [code = Chronic Opioid Use- Routine Urine Drug Screen] Future Scheduled 1962 Chronic Opioid Use- [facility] 00:00:00 Routine Urine Drug Screen [code = Chronic Opioid Use- Routine Urine Drug Screen] Future Scheduled 1962 Chronic Opioid Use- [facility] 00:00:00 Routine Urine Drug Screen [code = Chronic Opioid Use- Routine Urine Drug Screen] Future Scheduled 1962 Chronic Opioid Use- [facility] 00:00:00 Routine Urine Drug Screen [code = Chronic Opioid Use- Routine Urine Drug Screen] Future Scheduled 1962 Chronic Opioid Use- [facility] 00:00:00 Routine Urine Drug Screen [code = Chronic Opioid Use- Routine Urine Drug Screen] Future Scheduled 1962 Chronic Opioid Use- [facility] 00:00:00 Routine Urine Drug Screen [code = Chronic Opioid Use- Routine Urine Drug Screen] Future Scheduled 1962 Chronic Opioid Use- [facility] 00:00:00 Routine Urine Drug Screen [code = Chronic Opioid Use- Routine Urine Drug Screen] Future Scheduled 1962 Chronic Opioid Use- [facility] 00:00:00 Routine Urine Drug Screen [code = Chronic Opioid Use- Routine Urine Drug Screen] Future Scheduled 1962 Chronic Opioid Use- [facility] 00:00:00 Routine Urine Drug Screen [code = Chronic Opioid Use- Routine Urine Drug Screen] Future Scheduled 1962 Chronic Opioid Use- [facility] 00:00:00 Routine Urine Drug Screen [code = Chronic Opioid Use- Routine Urine Drug Screen] Future Scheduled 1962 Chronic Opioid Use- [facility] 00:00:00 Routine Urine Drug Screen [code = Chronic Opioid Use- Routine Urine Drug Screen] Future Scheduled 1962 Chronic Opioid Use- [facility] 00:00:00 Routine Urine Drug Screen [code = Chronic Opioid Use- Routine Urine Drug Screen] Future Scheduled 1962 Chronic Opioid Use- [facility] 00:00:00 Routine Urine Drug Screen [code = Chronic Opioid Use- Routine Urine Drug Screen] Future Scheduled 1962 Chronic Opioid Use- [facility] 00:00:00 Routine Urine Drug Screen [code = Chronic Opioid Use- Routine Urine Drug Screen] Encounters Start End Encounter Admission Attending Care Care Encounter Source Date/Time Date/Time Type Type Clinicians Facility Department ID 2022-10-27 Inpatient TEXANA TEX[place] [id number] [place] 08:39:32 [id number] [facility] 2022-10-22 Inpatient TEXANA TEXANA [id number] [place] 16:06:18 [id number] [facility] 2022-10-18 Inpatient TEXANA TEXANA [id number] [place] 16:57:32 [id number] [facility] 2022-10-16 Inpatient TEXANA TEXANA [id number] [place] 11:04:12 [id number] [facility] 2022-10-14 Inpatient TEXANA TEXANA [id number] [place] 11:37:17 [id number] [facility] 2022-04-02 Outpatient 3 [facility] [id number] [facility] 13:15:18 [facility] 2022-03-26 Outpatient [facility] [id number] [place] 10:40:23 [id number] [facility] 2022-03-19 Outpatient [facility] [id number] [place] 11:31:03 [id number] [facility] 2022-03-17 Outpatient [facility] [id number] [place] 15:57:49 [id number] [facility] 2022-03-11 Outpatient BERNARDA, [facility] [id number] [place] 09:40:18 EDIN [id number] [facility] 2022-11-03 2022-11-03 Outpatient AVILES, [facility] [id number] Access 15:33:00 15:33:00 ALFONSO [facility] 2022-11-02 2022-11-02 Outpatient AVILES, [facility] [id number] [facility] 15:00:00 15:00:00 ALFONSO [facility] 2022-11-02 2022-11-02 Outpatient AVILES, [facility] [id number] Access[facility] 13:48:00 13:48:00 ALFONSO [facility] 2022-11-01 2022-11-01 Outpatient NURSE, [facility] [id number] Access 10:56:00 10:56:00 NURSE [facility] 2022-10-29 2022-10-29 Outpatient [facility] [id number] [place] 17:16:07 17:16:07 [id number] Miguel 2022-10-28 2022-10-28 Outpatient AVILES, [facility] [id number] Access 14:00:00 14:00:00 ALFONSO [facility] 2022-10-28 2022-10-28 Outpatient AVILES, [facility] [id number] Access 12:34:00 12:34:00 [facility] 2022-10-26 2022-10-26 Outpatient AVILES, [facility] [id number] Access[facility] 15:00:00 15:00:00 ALFONSO [facility] 2022-10-25 2022-10-25 Outpatient NURSE, [facility] [id number] Access[facility] 16:04:00 16:04:00 [facility] 2022-10-19 2022-10-19 Outpatient AVILES, [facility] [id number] Access[facility] 15:24:00 15:24:00 [facility] 2022-10-19 2022-10-19 Outpatient AVILES, [facility] [id number] AccessH 15:24:00 15:24:00 ALFONSO Meehan e2-2ss4-18e 2i3-4vg1-2 [facility] 0-dw4zlt726 fb2-fb5b16 0f4 c5e47f 2022-10-19 2022-10-19 Outpatient PREETI, [facility] [id number] Access[facility] 11:24:00 11:24:00 HERNANDO ealt 2022-10-19 2022-10-19 Outpatient PREETI, [facility] [id number] Access[facility] 11:24:00 11:24:00 HERNANDO 22-4926-a4f 049-4839-9 [facility] f-[id number] 44a-59ade3 [place]ango 8bc8e3 2022-10-13 2022-10-14 Emergency E BRUCE, [facility] [id number] [facility] 18:04:00 11:15:00 [facility] 2022-10-13 2022-10-13 Outpatient PREETI, [facility] [id number] Access[facility] 07:36:00 07:36:00 HERNANDO [facility] 2022-10-13 2022-10-13 Outpatient PREETI, [facility] [id number] Access[facility] 07:36:00 07:36:00 HERNANDO e2-3zo6-68l yanet-4ced-a [facility] 0-oz7ugk249 917-fcx489 0f4 de0c9f 2022-10-08 2022-10-08 Outpatient APARNA, [facility] [id number] [facility] 15:45:00 15:45:00 GELATIA ealt 2022-10-08 2022-10-08 Outpatient APARNA, [facility] [id number] Access[facility] 15:45:00 15:45:00 GELATIA 45-8p5w-l6n 490-4ccc-a lt d-[id number] s49-6683j7 354 [id number] 2022-10-08 2022-10-08 Outpatient AVILES, [facility] [id number] Access[facility] 10:51:00 10:51:00 ALFONSO ealt 2022-10-08 2022-10-08 Outpatient STEFAN, [facility] [id number] 3f3 p5v02-8 Access[facility] 10:51:00 10:51:00 ALFONSO Meehan e2-3rc1-62j 46d-4ba3-8 [facility] 0-ue3uty472 022-27b44f 0f4 650c44 2022-10-07 2022-10-07 Outpatient PREETI, [facility] [id number] Access[facility] 18:35:00 18:35:00 [facility] 2022-10-07 2022-10-07 Outpatient PREETI, [facility] [id number] 1dx9ts9-t Access[facility] 18:35:00 18:35:00 HERNANDO 22-4926-a4f 979-447c-9 ealt f-[id number] s34-p8h312 [place]ango 5151f0 2022-10-07 2022-10-07 Outpatient STEFAN, [facility] [id number] Access[facility] 10:00:00 10:00:00 ALFONSO [facility] 2022-10-07 2022-10-07 Outpatient STEFAN, [facility] [id number] cass [id number]-1 Access[facility] 10:00:00 10:00:00 ALFONSO Meehan e2-5nt7-54d 899-4abf-9 [facility] 0-pg3iom732 97a-30b315 0f4 ea1fcb 2022-10-05 2022-10-05 Outpatient PREETI, [facility] [id number] Access[facility] 15:45:00 15:45:00 HERNANDO [facility] 2022-10-05 2022-10-05 OFFICE/OUT PREETI [facility] acu961ur-2b 0 g07u3py-w AccessH 15:45:00 15:45:00 PATIENT HERNANDO 22-4926-a4f z6w-9833-3 ealt VISIT EST f-[id number] 95f-ba4aaa mango 57aaf8 2022-10-05 2022-10-05 Outpatient PREETI, [facility] [id number] Access[facility] 15:27:00 15:27:00 HERNANDO lt 2022-10-052022-10-05 Outpatient PREETI, [facility] [id number]-4r 1 d0d14v1-1 Access[facility] 15:27:00 15:27:00 HERNANDO 22-4926-a4f 0p3-4g82-6 [facility] f-[id number] y9l-61r505 mango 1ec10f 2022-10-05 2022-10-05 Outpatient PREETI, [facility] [id number] Access[facility] 13:59:00 13:59:00 HERNANDO [facility] 2022-10-05 2022-10-05 Outpatient PREETI [facility] [id number] 2 [id number]-0 Access[facility] 13:59:00 13:59:00 HERNANDO 22-4926-a4f ab4-4cd2-a [facility] f-67234911g u86-f24237 mango 22a7b8 2022-10-04 2022-10-04 Outpatient COLON ELISABETH, [facility] [id number] Access[facility] 07:45:00 07:45:00 WILBERT [facility] 2022-10-04 2022-10-04 ENVIRONMEN COLON ELISABETH, [facility] [id number] Access[facility] 07:45:00 07:45:00 WENDY WILBERT e2-5ax1-81r r0k-5421- b [facility] ALMA DELIA 0-bc3rda826 ea4-c5097 c ON 0f4 e18c7b 2022-09-27 2022-09-29 Inpatient E [facility]IN [facility] [id number] [facility] 19:00:00 12:10:00 OLI [facility] 2022-09-27 2022-09-27 Outpatient STEFAN, [facility] [id number] Access[facility] 10:53:00 10:53:00 ALFONSO [facility] 2022-09-27 2022-09-27 Outpatient STEFAN, [facility] [id number] Access[facility] 10:53:00 10:53:00 ALFONSO Meehan e2-5ke3-45g 90a-48fd-a [facility] 0-uk6hqv657 a6z-v46z73 0f4 daf9ad 2022-09-25 2022-09-25 Emergency E [facility] [id number] [facility] 14:47:00 14:47:00 [facility] 2022-09-24 2022-09-24 Outpatient STEFAN, [facility] [id number] Access[facility] 17:55:00 17:55:00 ALFONSO [facility] 2022-09-24 2022-09-24 Outpatient STEFAN, [facility] 1fu1g9k5-5r [id number] v3n4t-a Access[facility] 17:55:00 17:55:00 ALFONSO Meehan e2-7je7-95k 67d-4554-b ealt 0-vv3qit367 [id number] 0f4 e399d3 2022-09-23 2022-09-23 Emergency E LENARDMARTHA FB MHFB 7502 FB 15:25:00 20:54:00 2022-09-23 2022-09-23 Outpatient STEFAN, [facility] [id number] Access[facility] 14:00:00 14:00:00 ALFONSO [facility] 2022-09-23 2022-09-23 Outpatient STEFAN, [facility] [id number] 2o0jw-k Access[facility] 14:00:00 14:00:00 ALFONSO Meehan e2-7yz4-00t d6x-1305-r ealt 0-xv4zfa784 d7e-w5v027 0f4 43cc3c 2022-09-23 2022-09-23 Outpatient STEFAN, [facility] [id number] Access[facility] 10:00:00 10:00:00 ALFONSO [facility] 2022-09-23 2022-09-23 Outpatient STEFAN, [facility] 6pk2a1z7-7b gregorio [id number] Access[facility] 10:00:00 10:00:00 ALFONSO Meehan e2-1ag7-09q x4k-93z4-3 ealt 0-jd6kym817 335-d1eea5 0f4 [id number] 7685-02-01 2022-09-22 Outpatient APARNA, [facility] [id number] [facility] 15:45:00 15:45:00 GELATIA ealt 2022-09-22 2022-09-22 Outpatient APARNA, [facility] [id number] Access[facility] 15:45:00 15:45:00 GELATIA 45-8a3t-k2a 7f9-77db-2 [facility] d-v4x353711 h0r-jn4925 354 [id number] 2022-09-22 2022-09-22 Outpatient AVILES, [facility] [id number] Access[facility] 12:25:00 12:25:00 ALFONSO [facility] 2022-09-22 2022-09-22 Outpatient STEFAN, [facility] [id number] Access[facility] 12:25:00 12:25:00 ALFONSO Shefali e2-3rx4-62n b1t-6408-7 [facility] 0-of9mgw826 6j6-w9d142 0f4 efa6e2 2022-09-21 2022-09-21 Outpatient APARNA, [facility] [id number] [facility] 17:41:00 17:41:00 ALEX [facility] 2022-09-21 2022-09-21 Outpatient APARNA, [facility] ledu52gq-y7 42 [id number] Access[facility] 17:41:00 17:41:00 GELROSY e9-44df-910 9fe-4659-b [facility] 4-3c5g9yn74 62a-136aa0 c82 aafd02 2022-09-21 2022-09-21 Outpatient STEFAN, [facility] [id number] Access[facility] 10:00:00 10:00:00 ALFONSO [facility] 2022-09-21 2022-09-21 Outpatient STEFAN, [facility] 6dx7o9k2-2u ee1 [id number] Access[facility] 10:00:00 10:00:00 ALFONSO Shefali e2-0cn4-59j 542-4fa2-b [facility] 0-ua4umt624 3bb-o06112 0f4 9a84de 2022-09-16 2022-09-16 Outpatient AVILES, [facility] [id number] Access[facility] 16:15:00 16:15:00 ALFONSO ealt 2022-09-16 2022-09-16 Outpatient AVILES, [facility] 5gf5m5s4-2c e52 [id number] Access[facility] 16:15:00 16:15:00 ALFONSO Shefali e2-9eq7-45w aa5-43e4-8 ealt 0-vi0byc985 9k5-n5ja6l 0f4 f6afa4 2022-09-14 2022-09-14 Outpatient STEFAN [facility] [id number] Access 13:53:00 13:53:00 ALFONSO [facility] 2022-09-14 2022-09-14 [facility] 2gd0n6c5-8z 77b 5q3g2-s Access 13:53:00 13:53:00 ALFONSO Shefali e2-3ah7-85w x51-7y08-o [facility] 0-iw1moy034 q16-qzc13k 0f4 m2675m 2022-09-14 2022-09-14 Outpatient [facility] [id number] Access 10:45:00 10:45:00 PURNIMA, JASON weber 2022-09-14 2022-09-14 OFFICE/OUT [facility] ash106op-7x 4 mhq6076-o Access 10:45:00 10:45:00 PATIENT PURNIMA JASON 22-4926-a4f 5g0-7x1 6-8 ealt VISIT [facility] f-[id number] 7fc-0cbfd0 mango 0c30b9 2022-09-13 2022-09-13 Outpatient [facility] [id number] Access 08:28:00 08:28:00 PURNIMA JASON weber 2022-09-13 2022-09-13 Outpatient [facility] iht108wt-5v a 8028caf-b Access 08:28:00 08:28:00 PURNIMA JASON 22-4926-a4f d64-42b b-9 ealt f-[id number] bd2-61c892 mango 37fb31 2022-09-10 2022-09-10 Outpatient [facility] [id number] Access 10:53:00 10:53:00 PURNIMA JASON weber 2022-09-10 2022-09-10 Outpatient NAVEED [facility] 8ow6e3o0-0m e 23q3h1e-n Access[facility] 10:53:00 10:53:00 JASON FELTON e2-4al4-36k f99-497 b-a [facility] 0-sb7kto827 36e-74b7c7 0f4 8ec6a1 2022-09-09 2022-09-09 Outpatient NURSE, [facility] [id number] Access[facility] 13:03:00 13:03:00 NURSE [facility] 2022-09-09 2022-09-09 Outpatient NURSE, [facility] fsnz80fz-l1 0be h6o21-m [facility] 13:03:00 13:03:00 NURSE e9-44df-910 x96-50n4-8 [facility] 4-8d8p0ou31 82d-08690o c82 g10129 2022-09-09 2022-09-09 Outpatient YODER, [facility] [id number] [facility] 11:03:00 11:03:00 DARYA [facility] 2022-09-09 2022-09-09 Outpatient YODER, [facility] [id number] [id number] Access[facility] 11:03:00 11:03:00 DARYA 5a-4504-901 sheryl-4994-9 [facility] 6-7yc954752 65b-773dc9 ee2 22bbc5 2022-09-09 2022-09-09 Outpatient KIRKLAND, [facility] [id number] Access[facility] 10:30:00 10:30:00 KWAME [facility] 2022-09-09 2022-09-09 Outpatient KIRKLAND, [facility] tyrd69we-h0 [id number] [id number] [facility] 10:30:00 10:30:00 KATBERNARDINO e9-44df-910 79d-4aa5- a lt 4-7j4q4ra04 q93-309o0u c82 6a3fb9 2022-09-08 2022-09-08 Outpatient O LUNA, [facility] [id number] [facility] 15:11:00 15:11:00 [facility] 2022-09-08 2022-09-08 Outpatient O LUNA, [facility] 6ys5g6o5-2f 11 w6yfww-4 [facility] 15:11:00 15:11:00 OLGA e2-1nq8-40q 46e-4a2e-b ealt 0-is9ozv718 ff1-n0t722 0f4 fdda41 2022-09-08 2022-09-08 Outpatient MELCHOR SOSA [facility] [id number] [facility] 14:23:00 14:23:00 [facility] 2022-09-08 2022-09-08 Outpatient MELCHOR SOSA [facility] [id number] [facility] 14:22:00 14:22:00 [facility] 2022-09-07 2022-09-07 Outpatient O CHERYL, [facility] [id number] [facility] 14:14[facility]07 Outpatient O CHERYL [facility] [id number] x23fco-y [facility] 14:14:00 14:14:00 OLGA e2-6mh5-22b 442-4bb6-b [facility] 0-hs0abp575 y69-x934a0 0f4 5173ac 2022-09-06 2022-09-06 Outpatient [facility] [id number] [facility] 15:03:00 15:03:00 JASON FELTON eal th 2022-09-06 2022-09-06 Outpatient [facility] nww385md-3v c [id number]-j Access[facility] 15:03:00 15:03:00 JASON FELTON 22-4926-a4f 3r7-656 f-a ealt f-37557860i 20d-5d29f4 mango e15e21 2022-09-06 2022-09-06 Outpatient O CHERYL, [facility] [id number] [facility] 09:21:00 09:21:00 [facility] 2022-09-06 2022-09-06 Outpatient O CHERYL [facility] 0ni0x2y9-0r f9 5t94o1-o [facility] 09:21:00 09:21:00 OLGA e2-3yr2-33u a22-14n8-u [facility] 0-al0tsg036 m41-8lg69p 0f4 mgt625 2022-09-02 2022-09-02 Outpatient [facility] [id number] [facility] 14:45:00 14:45:00 JASON FELTON 2022-09-02 2022-09-02 PREV VISIT [facility] odc063st-2h 2 jq60lv6-g Access[facility] 14:45:00 14:45:00 NEW AGE JASON FELTON 22-4926-a4f 7t9-2m3 0-8 [facility] 40-64 f-72405834m 29e-b64c1d mango ead0a4 2022-08-19 2022-08-19 Kimberly Hermosillo [facility] [id number] Stefan 00:00:00 00:00:00 [facility] 2022-07-29 2022-07-29 Hospital Pcp, [facility] [id number] Stefan 09:45:00 23:59:00 Encounter Patient Wilber alvarez Does Not Have 2022-07-29 2022-07-29 Therapy Akil [facility] [id number] Stefan 13:00:00 14:32:14 [facility] 2022-07-29 2022-07-29 Office [place] [facility] [id number] Stefan 10:00:00 11:44:19 Visit [facility] 2022-07-29 2022-07-29 Dustin Hermosillo [facility] [id number] Stefan 00:00:00 00:00:00 Only [facility] 2022-07-14 2022-07-14 Dustin Ybarra [facility] [id number] Stefan 00:00:00 00:00:00 Only [facility] 2022-07-12 2022-07-12 Kimberly Hermosillo [facility] [id number] Stefan 00:00:00 00:00:00 [facility] 2022-07-01 2022-07-01 [place] [facility] [id number] Stefan 11:45:00 13:07:29 Visit [facility] 2022-07-01 2022-07-01 Outpatient [facility] [id number] [place] 00:00:00 00:00:00 Health 2022-06-26 2022-06-26 Emergency [facility] [id number] [place] 18:18:00 21:12:00 Solo Burton 2022-06-26 2022-06-26 Emergency [facility] [id number] [place] 19:21:24 19:39:05 Health 2022-06-26 2022-06-26 Emergency [facility] [id number] [place] 19:22:14 19:38:33 SOLO [facility] 2022-06-25 2022-06-25 Orders Amada [facility] [id number] [place] 00:00:00 00:00:00 Only [facility] 2022-06-24 2022-06-24 Kimberly Hermosillo [facility] [id number] [place] 00:00:00 00:00:00 [facility] 2022-06-17 2022-06-17 Hospital Pcp, [facility] [id number] [place] 10:15:00 23:59:00 Encounter Patient Wilber Salazar Not Have 2022-06-17 2022-06-17 [facility] [id number] [place] 10:30:00 12:25:50 Visit [facility] 2022-06-15 2022-06-15 Dustin Jin [facility] [id number] [place] 00:00:00 00:00:00 Only [place] alvarez 2022-06-04 2022-06-04 Orders [place] [facility] [id number] Stefan 00:00:00 00:00:00 Only [facility] 2022-06-04 2022-06-04 Reflelia Hermosillo [facility] [id number] [place] 00:00:00 00:00:00 [facility] 2022-05-26 2022-05-26 Reflelia Hermosillo [facility] [id number] Stefan 00:00:00 00:00:00 [facility] 2022-05-21 2022-05-21 [facility] [id number] [place] 00:00:00 00:00:00 [facility] 2022-05-20 2022-05-20 [facility] [id number] [place] 11:45:00 11:45:00 Visit Lily Magdalene [facility] 2022-05-14 2022-05-14 [facility] [id number] [place] 00:00:00 00:00:00 Lily Magdalene [facility] 2022-05-07 2022-05-07 [id number] [place] 10:45:42 23:59:00 Encounter Lily Magdalene [facility] 2022-05-07 2022-05-07 [facility] [id number] [place] 09:48:00 15:09:00 Encounter Lily Magdalene Heal 2022-05-07 2022-05-07 [facility] [id number] [place] 13:00:00 14:50:00 [facility] 2022-05-07 2022-05-07 Anesthesia Jomar King [facility] [id number] [place] 12:20:00 14:08:00 Event Mildred Puri [facility] 2022-05-07 2022-05-07 Outpatient [facility] [id number] [place] 00:00:00 00:00:00 [facility] 2022-05-05 2022-05-05 Nurse Only Lily Hermosillo [facility] [id number] [place] 12:30:00 13:06:07 Merissa Niyahatilio Lopez [facility] 2022-05-05 2022-05-05 [facility] [id number] [place] 00:00:00 00:00:00 [facility] 2022-05-05 2022-05-05 Outpatient BAY [facility] [id number] [place] 00:00:00 00:00:00 [facility] 2022-05-05 2022-05-05 Outpatient 3 [facility] [id number] [place] 00:00:00 00:00:00 [facility] 2022-05-04 2022-05-04 [facility] [id number] [place] 08:30:00 09:28:10 Encounter Mildred Perez [facility] 2022-04-30 2022-04-30 [facility] [id number] [place] 00:00:00 00:00:00 Only Lily Magdalene [facility] 2022-04-29 2022-04-29 Office [place], [facility] [id number] [place] 08:00:00 10:10:28 Visit Lily Del Castillo [facility] 2022-04-29 2022-04-29 Orders Gustavo, [facility] [id number] [place] 00:00:00 00:00:00 Only Ibrahima Burton h 2022-04-24 2022-04-24 Orders Conrado, [facility] [id number] [place] 00:00:00 00:00:00 Only Rhiannon [facility] 2022-04-23 2022-04-23 Hospital Pcp, [facility] [id number] [place] 09:24:49 23:59:00 Encounter Patient Wilber alvarez Does Not Have 2022-04-23 2022-04-23 Office Lily Hermosillo [facility] [id number] [place] 08:00:00 09:43:29 Visit Jomar Aaron [facility] 2022-04-15 2022-04-15 Emergency [place], 1.2.840.1 [id number] [place] 13:16:00 19:53:[address] 3.430.2.7 Hospit a .3.391069 l .8 2022-04-15 2022-04-15 Emergency [place], 1.2.840.1 [id number] [facility] 13:16:00 19:53:[address] Par[address] Abel [address] 3.430.2.7 Hospit a .3.423729 l .8 2022-04-15 2022-04-15 Travel 1.2.840.1 1.2.520.119 [id number] [place]i 00:00:00 00:00:[address] 3.430.2.7 0.2.7.3.698 Ho spita .3.677173 084.8 l .8 2022-04-15 2022-04-15 Travel 1.2.840.1 1.2.752.037 [id number] [place] 00:00:00 00:00:00 35781.1.1 350.1.13.43 524 3.430.2.7 0.2.7.3.698 Ho spita .3.745786 084.8 l .8 2022-04-12 2022-04-12 Nurse Omero, [facility] [id number] [place] 00:00:00 00:00:00 [facility]riage [facility] 2022-04-06 2022-04-07 Hospital [place], [facility] [id number] [place] 09:30:00 17:20:00 Encounter Lily Magdalene [facility] 2022-04-06 2022-04-06 Surgery Hermosillo, [facility] [id number] [place] 11:20:00 14:59:00 [facility] 2022-04-06 2022-04-06 Anesthesia Kane Ohara [facility] [id number] [place] 11:18:00 13:59:00 Event Siddhartha Cardoso [facility] 2022-04-06 2022-04-06 [facility] [id number] [place] 09:03:30 09:03:30 [facility] 2022-04-06 2022-04-06 [facility] [id number] [place] 00:00:00 00:00:00 [facility] 2022-04-02 2022-04-02 Outpatient [facility] [id number] [place] 14:03:55 14:03:57 [facility] 2022-04-02 2022-04-02 Office [facility] [id number] [place] 10:00:00 13:34:36 Visit , [facility] 2022-04-02 2022-04-02 [facility] [id number] [place] 11:23:56 11:32:28 [facility] 2022-03-30 2022-03-30 Outpatient [facility] [id number] [place] 00:00:00 00:00:00 [facility] 2022-03-29 2022-03-29 Emergency Baltazar Earl [facility] [id number] [place] 20:45:00 23:53:00 Rosanna Nielsen [facility] 2022-03-29 2022-03-29 Emergency [facility] [id number] [place] 19:13:32 19:32:04 [facility] 2022-03-292022-03-29 Nurse Aleisha, [facility] [id number] [place] 00:00:00 00:00:00 Triage Riya Cardoso Wilber 2022-03-20 2022-03-21 Emergency E [facility] [id number] [place] 21:27:00 00:34:00 [facility] 2022-03-19 2022-03-19 Office Suzie, RUSSELL ORTHO 1.2.840.114 [id number] [place] 11:20:00 12:36:56 Visit Sydney SUGAR 350.1.13.58 [facility] Dorothy LAND 9.2.7.2.686 [id number] 2022-03-19 2022-03-19 Outpatient [facility] [id number] [place] 00:05:00 00:05:00 [facility] 2022-03-19 2022-03-19 Outpatient [facility] [id number] [place] 00:00:00 00:00:00 [facility] 2022-03-16 2022-03-17 Emergency [facility] [id number] [facility] 22:16:12 04:59:00 r Nicholas 01 l [place] Irma 2022-03-16 2022-03-16 Emergency [facility] 17:16:00 23:59:00 [facility] 2022-03-14 2022-03-14 [facility] [id number] [place] 00:00:00 00:00:00 [facility] 2022-03-12 2022-03-13 [facility] [id number] [place] 15:06:00 04:27:00 [facility] 2022-03-12 2022-03-12 Emergency [facility] [id number] [place] 22:55:03 23:16:49 [facility] 2022-03-12 2022-03-12 Emergency MARTIN, [facility] [id number] [place] 19:41:18 20:31:02 DIANE Burton 2022-03-12 2022-03-12 Emergency [facility] [id number] [place] 20:04:58 20:20:02 [facility] 2022-03-12 2022-03-12 Emergency [facility] [id number] [place] 13:21:51 13:47:13 [facility] 2022-03-10 2022-03-11 Emergency [facility] [id number] [place] 20:14:49 03:13:00 r Phil Campbell 00 l [facility] 2022-03-10 2022-03-10 Emergency E AZNAUROVA-A MHBL MHBL 7500 MHBL 15:14:00 22:13:00 ROSEANNA VILLARREAL Results Test Description Test Time Test Comments Results Result Comments Source ALCOHOL BLOOD (ETOH) *WW* 2022-10-13 23:01:00 Test Item Value Reference Range Interpretation Comme nts ETOH (test code = HALC) ETHANOL The result is to be used only for medical purposes ALCOHOL (test code = 56A) 48 mg/dL <=10 H DRUGS OF ABUSE *WW*2022-10-13 20:19:00 Test Item Value Reference Range Interpretation Comments DRUG SCRN (test code = URINE DRUG HDOA) SCREEN This is an unconfirmed screening result and should not be used for non-medical purposes CANNABINOD (test code NEGATIVE NEGATIVE = 88C) AMPHETAMINE (test code NEGATIVE NEGATIVE = 84A) BENZODIAZP (test code POSITIVE NEGATIVE A = 86A) BARBITURAT (test code NEGATIVE NEGATIVE = 85A) OPIATES (test code = NEGATIVE NEGATIVE 92B) COCAINE (test code = NEGATIVE NEGATIVE 87A) PHENCYCLID (test code NEGATIVE NEGATIVE = 66A) METHADONE (test code = NEGATIVE NEGATIVE 64A) DOAH (test code = DOAH.) URINE DRUGSCREEN Cut-off values are as follows: Cannabinoids 50 ng/mL Cocaine 300 ng/mL Amphetamines 1000 ng/mL Phencyclidine 25 ng/mL Benzodiazepines 200 ng.mL Methadone 300 ng/mL Barbiturates 200 ng/mL Opiates 300 ng/mL SALICYLATES WW2022-10-13 20:19:00 Test Item Value Reference Range Interpretation Comments SALICYLATE (test code = 94B) <3.0 mg/dL 15.0-30.0 L LIVER PROFILE WW2022-10-13 20:06:00 Test Item Value Reference Range Interpretation Comments BILI TOTAL (test code = 11A) 0.3 mg/dL 0.2-1.0 BILI DIRCT (test code = 12A) 0.1 mg/dL 0.0-0.3 BILI INDIR (test code = BILII) 0.2 mg/dL <=0.8 PROTEIN (test code = 07D) 6.4 g/dL 5.7-8.2 ALBUMIN (test code = 08D) 4.3 g/dL 3.2-4.8 GLOBULIN (test code = GLB) 2.1 g/dL 1.5-3.8 ALB/GLOB (test code = AGRR) 2.0 1.0-2.6 ALK PHOS (test code = 35A) 167 IU/L 46-116 H AST (test code = 30A) 57 IU/L <=33 H ALT (test code = 31A) 41 IU/L 10-49 ACETAMINOPHEN 2022-10-13 20:06:00 Test Item Value Reference Range Interpretation Comments ACETAMINPH (test code = 94M) <0.2 mg/dL 1.2-2.5 L ALCOHOL BLOOD (ETOH) *WW*2022-10-13 20:06:00 Test Item Value Reference Range Interpretation Comments ETOH (test code = HALC) ETHANOL The result is to be used only for medical purposes ALCOHOL (test code = 138 mg/dL <=10 H 56A) BASIC METABOLIC PANEL *WW*2022-10-13 20:04:00 Test Item Value Reference Range Interpretation Comments GLUCOSE (test code = 112 mg/dL 75-100 H 06D) SODIUM (test code = 143 mmol/L 136-145 01A) POTASSIUM (test code = 3.7 mmol/L 3.6-5.1 01B) CHLORIDE (test code = 105 mmol/L 98-107 04A) CO2 (test code = 02A) 28 mmol/L 20-31 ANION GAP (test code = 13.7 mmol/L ANG) BUN (test code = 05D) 7 mg/dL 9-23 L CREATININE (test code 0.6 mg/dL 0.6-1.0 = 03E) GFR (test code = GFR) 99 mL/min/1.73m\\S\\2 >=90 GFR 115 mL/min/1.73m\\S\\2 >=90 (test code = GFRAA) EGFR (test code = eGFR BY CKD-EPI EGFR) CALCULATION IS NOT RECOMMENDED FOR PATIENTS UNDER 18 YEARS OF AGE. BUN/CREA (test code = 12 12-20 BCR) CALCIUM (test code = 8.4 mg/dL 8.3-10.6 09D) SARS-CoV (RAPID ANTIGEN) WW2022-10-13 19:01:00 Test Item Value Reference Range Interpretation Comments SARS-CoV (ANTIGEN) NEGATIVE NEGATIVE (test code = COVAG) COVID AG (test This test has been code = COVAGC) marketed under the FDA Emergency Use Authorization (EUA) to meet challenges of the COVID-19 pandemic. The validation standards normally enforced by the FDA and the [employer] (CAP) are more stringent than those required for this test. Therefore, the result should be interpreted with caution and close attention to other clinical and epidemiological data CBC (INCLUDES AUTOMATED DIFFERENTIAL)*[id number] 18:40:00 Test Item Value Reference Range Interpretation Comments WBC (test code = WBC) 5.2 10\\S\\3/uL 4.5-11.0 RBC (test code = RBC) 3.69 10\\S\\6/uL 4.20-5.60 L HGB (test code = HBG) 12.3 g/dL 12.0-15.5 HCT (test code = HCT) 36.4 % 35.0-44.0 MCV (test code = MCV) 98.6 fL 81.0-99.0 MCH (test code = MCH) 33.3 pg 27.0-31.0 H MCHC (test code = MCHC) 33.8 g/dL 32.0-36.0 RDW (test code = RDW) 13.1 % 11.5-14.5 PLT (test code = PLT) 234 10\\S\\3/uL 130-400 MPV (test code = MPV) 9.8 fL 9.4-12.4 NEUTROP # (test code = NE#) 2.3 10\\S\\3/uL 1.6-8.0 LYMPH # (test code = LY#) 2.2 10\\S\\3/uL 1.1-3.5 MONOCYTE # (test code = MO#) 0.5 10\\S\\3/uL 0.0-1.1 EOSINOPH # (test code = EO#) 0.2 10\\S\\3/uL 0.0-0.7 BASOPHIL # (test code = BA#) 0.0 10\\S\\3/uL 0.0-0.3 IG # (test code = IG#) 0.01 10\\S\\3/uL 0.00-0.06 NRBC # (test code = NRBC#) 0.00 10\\S\\3/uL 0.00-0.01 NEUTROPH % (test code = NE%) 44.3 % 35.0-73.0 LYMPH % (test code = LY%) 42.6 % 20.0-55.0 MONO % (test code = MO%) 9.4 % 2.5-10.0 EOSINOPH % (test code = EO%) 2.9 % 0.0-5.0 BASOPHIL % (test code = BA%) 0.6 % 0.0-2.0 IG % (test code = IG%) 0.2 % 0.0-0.8 NRBC% (test code = NRBC%) 0.0 % 0.0-0.2 MANDIFF (test code = WMDIFF) NO NO RBC MORPH (test code = NORMAL WRBCMOR) URINALYSIS *WW*2022-10-13 18:39:00 Test Item Value Reference Range Interpretation Comments COLOR (test code = COLU) YELLOW YELLOW CLARITY (test code = CLA) CLEAR CLEAR GLUCOSE UR (test code = UA GLUCOSE) NEGATIVE NEGATIVE BILI UR (test code = BILE) NEGATIVE NEGATIVE KETONES UR (test code = JEYSON) NEGATIVE NEGATIVE SP GRAVITY (test code = SPGR) 1.010 1.005-1.030 PH UR (test code = PH) 7.0 4.5-8.0 PROTEIN UR (test code = PU) NEGATIVE NEGATIVE UROBIL UR (test code = UROQ) 0.2 EU/dL 0.2-1.0 NITRITE UR (test code = NITRITE) NEGATIVE NEGATIVE BLOOD UR (test code = UA BLOOD) NEGATIVE NEGATIVE LEUK ES UR (test code = LEUK) NEGATIVE NEGATIVE AUAM (test code = WAUAM) NO NO Panel Description: Compliance Drug Analysis, [id number] 22:09:00 Test Item Value Reference Range Interpretation Comments Summary Report FINAL (Summary) (test code = 35454-4) ========TOXA SSURE COMP DRUG ANALYSIS,UR==== ====Test Result Flag Uni tsDrug Present Desmethyldiazep am 77 ng/mg creat Oxazepam 173 ng/mg creat Temazepam 153 n g/mg creat Desmethyldiazep am, oxazepam, and temazepam a re benzodiazepine drugs, but may also be present as common metabolites of other benzodiazepine drugs, including diaze bar. 7-aminoclonazep am 37 ng/mg creat 7-aminocl onazepam is an expected metabo lite of clonazepam. Chiara rce of clonazepam is a scheduled prescription me dication. Alcohol, Ethyl 0.073 g/dL Sources of ethy l alcohol include alcohol ic beverages or as a fermentati on product of glucose; glucos e was not detected in thi s specimen. Ethyl alcohol r esult should be interpreted in the context of all available c linical and behavioral info rmation. Gabapentin PRES ENT Venlafaxine PRE SENT Desmethylvenlaf axine PRESENT Desmethylvenlaf axine is an expected metabo lite of venlafaxine. Ac etaminophen PRESENT Diphenh ydramine PRESENT Metopro lol PRESENT======== Test Result Flag Units Ref Range Creatinine 75 m g/dL >=20 Dec lared Medications: Me dication list was not provided.====== ==For clinical consultation, p lease call .====== ==Performed by:[facility] (MX) PDF (test code = . 91217-1) [facility] Description: Compliance Drug Analysis, [id number] 22:09:00 Test Item Value Reference Range Interpretation Comments Summary Report FINAL (Summary) (test code = 46165-6) ========TOXA SSURE COMP DRUG ANALYSIS,UR==== ====Test Result Flag UnitsDrug Present Desmethyldiazep am 77 ng/mg creat Oxazepam 173 ng/mg creat Temazepam 153 ng/mg creat Desmethyl diazepam, oxazepam, and t emazepam are benzodiazepine drugs, but may also be present as common metabolites of other benzodiazepine drugs, including diaze bar. 7-aminoclonazep am 37 ng/mg creat 7-aminocl onazepam is an expected metabo lite of clonazepam. Chiara rce of clonazepam is a scheduled prescription me dication. Alcohol, Ethyl 0.073 g/dL Sources of ethy l alcohol include alcohol ic beverages or as a fermentati on product of glucose; glucos e was not detected in thi s specimen. Ethyl alcohol r esult should be interpreted in the context of all available c linical and behavioral info rmation. Gabapentin PRE SENT Venlafaxine PRE SENT Desmethylvenlaf axine PRESENT Desmethylvenlaf axine is an expected metabo lite of venlafaxine. Ac etaminophen PRESENT Diphenh ydramine PRESENT Metopro lol PRESENT======== Test Result Flag Units Ref Range Creatinine 75 m g/dL >=20 Dec lared Medications: Me dication list was not provided.====== ==For clinical consultation, joe lee call .====== ==Performed by:[facility] (Thrill On) PDF (test code = . 32401-6) [facility] Description: Carbohydrate Deficient Transf.2022-10-11 16:36:00 Test Item Value Reference Range Interpretation Comments CDT (test code = 0.7 % 0.0-1.3 Normal <1. 4 Inconclusive 22463-9) 1.4 - 1.6 Elev ated >1.6 Clinical use on ly. Not specific for me dico-legal purposes. . Th is test is not suitable fo r the evaluation of p atients suspected of cunningham ving congenital glyc osylation disorders.Perfo rmed by:Deann darden (HD) [facility] Description: Carbohydrate Deficient Transf.2022-10-11 16:36:00 Test Item Value Reference Range Interpretation Comments CDT (test code = 0.7 % 0.0-1.3 Normal <1. 4 Inconclusive 46665-0) 1.4 - 1.6 Rio mau >1.6 Clinical use on ly. Not specific for me dico-legal purposes. . Thi s test is not suitable for th e evaluation of patients abel pected of having congenit al glycosylation disorders.Perfo rmed by:Deann darden (HD) [facility] Description: Chlamydia/GC [id number] 23:46:00 Test Item Value Reference Range Interpretation Comments Chlamydia trachomatis, MATIAS (test Negative Negative code = 80425-6) Neisseria gonorrhoeae, MATIAS (test Negative Negative code = 86320-0) [facility] Description: Chlamydia/GC [id number] 23:46:00 Test Item Value Reference Range Interpretation Comments Chlamydia trachomatis, MATIAS (test Negative Negative code = 02984-9) Neisseria gonorrhoeae, MATIAS (test Negative Negative code = 04738-1) [facility] Description: Ammonia [Mass/volume] in [id number] 13:43:00 Test Item Value Reference Range Interpretation Comments Ammonia, Plasma (test code = 235 ug/dL 34-178 HH 16473-5) [facility] Description: Ammonia [Mass/volume] in [id number] 13:43:00 Test Item Value Reference Range Interpretation Comments Ammonia, Plasma (test code = 235 ug/dL 34-178 HH 19325-6) [facility] Description: Ethylene Glycol, [id number] 11:18:00 Test Item Value Reference Range Interpretation Comments Ethylene Glycol Negative NEGATIVE Note: Analys is performed on (test code = urine. Referenc e ranges have 5647-3) not been establ ished for urine specimens.This test was developed and i ts performance characteristics determined by [employer]. It has not been cleared or appr ovedby the Food and Drug Administration. Performed by:[facility] (MX) [facility] Description: Ethylene Glycol, [id number] 11:18:00 Test Item Value Reference Range Interpretation Comments Ethylene Glycol Negative NEGATIVE Note: Analys is performed on (test code = urine. Referenc e ranges have 5647-3) not been establ ished for urine specimens.This test was developed and i ts performance characteristics determined by [employer]. It has not been cleared or appr ovedby the Food and Drug Administration. Performed by:[facility] (MX) [facility] Description: Hepatitis C virus Ab Signal/Cutoff in Serum or Plasma by Unewjdhcpab9583-41-60 08:56:00 Test Item Value Reference Range Interpretation Comments Hep C Virus Ab Non Reactive Non Reactive HCV antibody alone does not (test code = differentiate b etween 83175-1) previouslyresol blaire infection and a ctive infection. Equi vocal and ReactiveHCV ant ibody results should be followed up with an HCV RNA testto support the pk gnosis of active HCV infection.Perfo rmed by:[facility] Roseanna darden (HD) [facility] Description: Hepatitis C virus Ab Signal/Cutoff in Serum or Plasma by Srpauqvwlgn4433-19-29 08:56:00 Test Item Value Reference Range Interpretation Comments Hep C Virus Ab Non Reactive Non Reactive HCV antibody alone does not (test code = differentiate b etween 59133-8) previouslyresol blaire infection and a ctive infection. Equi vocal and ReactiveHCV ant ibody results should be followed up with an HCV RNA testto support the pk gnosis of active HCV infection.Perfo rmed by:[facility] [place] ([place]) [facility] Description: Ferritin [Mass/volume] in Serum or Plasma 2022-10-08 08:12:00 Test Item Value Reference Range Interpretation Comments Ferritin (test code = 2276-4) 149 ng/mL 15-150 [facility] Description: Ferritin [Mass/volume] in Serum or Plasma 2022-10-08 08:12:00 Test Item Value Reference Range Interpretation Comments Ferritin (test code = 2276-4) 149 ng/mL 15-150 [facility] Description: Prothrombin Time (PT)2022-10-08 08:08:00 Test Item Value Reference Range Interpretation Comments INR (test code = 1.0 0.9-1.2 Reference interval 6301-6) is for non-anticoagula mau patients. . Sug gested INR therapeutic range for Vitamin K antagonist ther apy: Standard Dose (moderate inten sity therapeutic ran ge): 2.0 - 3.0 Highe r intensity thera peutic range 2.5 - 3.5Performed by:[facility] [place] ([place]) Prothrombin Time (test 10.5 sec 9.1-12.0 code = 5902-2) [facility] Description: Prothrombin Time (PT)2022-10-08 08:08:00 Test Item Value Reference Range Interpretation Comments INR (test code = 1.0 0.9-1.2 Reference interval is 6301-6) for non-anticoa gulated patients. . Alexandra ggested INR therapeutic range for Vitamin K antagonist ther apy: Standard Dose (moderate inten sity therapeutic ran ge): 2.0 - 3.0 Highe r intensity thera peutic range 2.5 - 3.5Performed by:[facility] [place] ([place]) Prothrombin Time (test 10.5 sec 9.1-12.0 code = 5902-2) [facility] Description: Lipase [Enzymatic activity/volume] in Serum or [id number] 08:04:00 Test Item Value Reference Range Interpretation Comments Lipase (test code = 3040-3) 30 U/L 14-72 [facility] Description: Gamma glutamyl transferase [Enzymatic activity/volume] in Serum or [id number] 08:04:00 Test Item Value Reference Range Interpretation Comments GGT (test code = 2324-2) 568 IU/L 0-60 H [facility] Description: Amylase [Enzymatic activity/volume] in Serum or [id number] 08:04:00 Test Item Value Reference Range Interpretation Comments Amylase (test code = 1798-8) 52 U/L 31-110 [facility] Description: Lipase [Enzymatic activity/volume] in Serum or [id number] 08:04:00 Test Item Value Reference Range Interpretation Comments Lipase (test code = 3040-3) 30 U/L 14 [facility] Description: Gamma glutamyl transferase [Enzymatic activity/volume] in Serum or Rlxlyp6885-24-55 08:04:00 Test Item Value Reference Range Interpretation Comments GGT (test code = 2324-2) 568 IU/L 0-60 H [facility] Description: Amylase [Enzymatic activity/volume] in Serum or [id number] 08:04:00 Test Item Value Reference Range Interpretation Comments Amylase (test code = 1798-8) 52 U/L 31-110 [facility] Description: HIV 1+2 Ab+HIV1 p24 Ag [Presence] in Serum or Plasma by Oldzvtquncp4097-44-83 07:27:00 Test Item Value Reference Range Interpretation Comments HIV Ab/p24 Ag Non Reactive Non Reactive HIV Screen (test code = Negative HIV-1/HIV-2 26653-9) antibodies and HIV-1 p24 antigen wer e NOT detected.There is no laboratory evid ence of HIV infection.Perfo rmed by:[facility] Roseanna darden (HD) [facility] Description: HIV 1+2 Ab+HIV1 p24 Ag [Presence] in Serum or Plasma by [id number] 07:27:00 Test Item Value Reference Range Interpretation Comments HIV Ab/p24 Ag Non Reactive Non Reactive HIV Screen (test code = Negative HIV-1/HIV-2 82767-5) antibodies and HIV-1 p24 antigen wer e NOT detected.There is no laboratory evid ence of HIV infection.Perfo rmed by:[facility] [place] ([place]) [facility] Description: RPR, Rfx Qn RPR/Confirm [id number] 06:17:00 Test Item Value Reference Range Interpretation Comments RPR (test code = 94862-2) Non Reactive Non Reactive [facility] Description: RPR, Rfx Qn RPR/Confirm [id number] 06:17:00 Test Item Value Reference Range Interpretation Comments RPR (test code = 36381-0) Non Reactive Non Reactive [facility] Description: Comp. Metabolic Panel (14)2022-10-08 06:16:00 Test Item Value Reference Range Interpretation Comments Glucose (test code = 2345-7) 89 mg/dL 70-99 BUN (test code = 3094-0) 9 mg/dL 6-24 Creatinine (test code = 0.69 mg/dL 0.57-1.00 2160-0) eGFR (test code = 08668-0) 100 mL/min/1.73 >59 BUN/Creatinine Ratio (test 13 9-23 code = 3097-3) Sodium (test code = 2951-2) 143 mmol/L 134-144 Potassium (test code = 4.3 mmol/L 3.5-5.2 2823-3) Chloride (test code = 2075-0) 104 mmol/L 96-106 Carbon Dioxide, Total (test 26 mmol/L 20-29 code = 2028-9) Calcium (test code = 37946-2) 9.3 mg/dL 8.7-10.2 Protein, Total (test code = 6.1 g/dL 6.0-8.5 2885-2) Albumin (test code = 1751-7) 4.2 g/dL 3.8-4.9 Globulin, Total (test code = 1.9 g/dL 1.5-4.5 19242-4) A/G Ratio (test code = 2.2 1.2-2.2 1759-0) Bilirubin, Total (test code = 0.3 mg/dL 0.0-1.2 1975-2) Alkaline Phosphatase (test 161 IU/L 44-121 H code = 6768-6) AST (SGOT) (test code = 59 IU/L 0-40 H 1920-8) ALT (SGPT) (test code = 61 IU/L 0-32 H 1742-6) [facility] Description: Comp. Metabolic Panel (14)2022-10-08 06:16:00 Test Item Value Reference Range Interpretation Comments Glucose (test code = 2345-7) 89 mg/dL 70-99 BUN (test code = 3094-0) 9 mg/dL 6-24 Creatinine (test code = 0.69 mg/dL 0.57-1.00 2160-0) eGFR (test code = 22832-1) 100 mL/min/1.73 >59 BUN/Creatinine Ratio (test 13 9-23 code = 3097-3) Sodium (test code = 2951-2) 143 mmol/L 134-144 Potassium (test code = 4.3 mmol/L 3.5-5.2 2823-3) Chloride (test code = 2075-0) 104 mmol/L 96-106 Carbon Dioxide, Total (test 26 mmol/L 20-29 code = 2027-9) Calcium (test code = 70112-8) 9.3 mg/dL 8.7-10.2 Protein, Total (test code = 6.1 g/dL 6.0-8.5 2885-2) Albumin (test code = 1751-7) 4.2 g/dL 3.8-4.9 Globulin, Total (test code = 1.9 g/dL 1.5-4.5 53521-4) A/G Ratio (test code = 2.2 1.2-2.2 1759-0) Bilirubin, Total (test code = 0.3 mg/dL 0.0-1.2 1975-2) Alkaline Phosphatase (test 161 IU/L 44-121 H code = 6768-6) AST (SGOT) (test code = 59 IU/L 0-40 H 1920-8) ALT (SGPT) (test code = 61 IU/L 0-32 H 1742-6) [facility] USE [id number] 11:58:00 Test Item Value Reference Range Interpretation Comments GLUCOMETER (test code = 138 mg/dL 70-100 H Mete r ID: GMG) [id number] tor: [id number] JOURAMANDA W [facility] GLUCOMETER GLUCOSE- LAB USE [id number] 09:22:00 Test Item Value Reference Range Interpretation Comments GLUCOMETER (test code = 135 mg/dL 70-100 H Mete r ID: GMG) [id number] tor: [id number] SARINA W [facility] COMPREHENSIVE METABOLIC SINGH *WW*2022-09-29 06:12:00 Test Item Value Reference Range Interpretation Comments GLUCOSE (test code = 148 mg/dL 75-100 H 06D) SODIUM (test code = 137 mmol/L 136-145 01A) POTASSIUM (test code = 4.0 mmol/L 3.6-5.1 01B) CHLORIDE (test code = 104 mmol/L 98-107 04A) CO2 (test code = 02A) 25 mmol/L 20-31 ANION GAP (test code = 12.0 mmol/L ANG) BUN (test code = 05D) 11 mg/dL 9-23 CREATININE (test code 0.6 mg/dL 0.6-1.0 = 03E) GFR (test code = GFR) 99 mL/min/1.73m\\S\\2 >=90 GFR 115 mL/min/1.73m\\S\\2 >=90 (test code = GFRAA) EGFR (test code = eGFR BY CKD-EPI EGFR) CALCULATION IS NOT RECOMMENDED FOR PATIENTS UNDER 18 YEARS OF AGE. BUN/CREA (test code = 18 12-20 BCR) CALCIUM (test code = 8.7 mg/dL 8.3-10.6 09D) BILI TOTAL (test code 0.5 mg/dL 0.2-1.0 = 11A) PROTEIN (test code = 5.5 g/dL 5.7-8.2 L 07D) ALBUMIN (test code = 3.7 g/dL 3.2-4.8 08D) GLOBULIN (test code = 1.8 g/dL 1.5-3.8 GLB) ALB/GLOB (test code = 2.1 1.0-2.6 AGRR) ALK PHOS (test code = 172 IU/L 46-116 H 35A) AST (test code = 30A) 95 IU/L <=33 H ALT (test code = 31A) 47 IU/L 10-49 CBC (INCLUDES AUTOMATED DIFFERENTIAL)*[id number] 06:02:00 Test Item Value Reference Range Interpretation Comments WBC (test code = WBC) 3.4 10\\S\\3/uL 4.5-11.0 L RBC (test code = RBC) 3.06 10\\S\\6/uL 4.20-5.60 L HGB (test code = HBG) 10.4 g/dL 12.0-15.5 L HCT (test code = HCT) 29.6 % 35.0-44.0 L MCV (test code = MCV) 96.7 fL 81.0-99.0 MCH (test code = MCH) 34.0 pg 27.0-31.0 H MCHC (test code = MCHC) 35.1 g/dL 32.0-36.0 RDW (test code = RDW) 13.2 % 11.5-14.5 PLT (test code = PLT) 75 10\\S\\3/uL 130-400 L MPV (test code = MPV) 9.5 fL 9.4-12.4 NEUTROP # (test code = NE#) 1.7 10\\S\\3/uL 1.6-8.0 LYMPH # (test code = LY#) 1.1 10\\S\\3/uL 1.1-3.5 MONOCYTE # (test code = MO#) 0.3 10\\S\\3/uL 0.0-1.1 EOSINOPH # (test code = EO#) 0.1 10\\S\\3/uL 0.0-0.7 BASOPHIL # (test code = BA#) 0.0 10\\S\\3/uL 0.0-0.3 IG # (test code = IG#) 0.14 10\\S\\3/uL 0.00-0.06 H NRBC # (test code = NRBC#) 0.07 10\\S\\3/uL 0.00-0.01 H NEUTROPH % (test code = NE%) 50.7 % 35.0-73.0 LYMPH % (test code = LY%) 30.9 % 20.0-55.0 MONO % (test code = MO%) 9.9 % 2.5-10.0 EOSINOPH % (test code = EO%) 3.2 % 0.0-5.0 BASOPHIL % (test code = BA%) 1.2 % 0.0-2.0 IG % (test code = IG%) 4.1 % 0.0-0.8 H NRBC% (test code = NRBC%) 2.0 % 0.0-0.2 H MANDIFF (test code = WMDIFF) NO NO RBC MORPH (test code = NORMAL WRBCMOR) GLUCOMETER GLUCOSE- LAB USE [id number] 21:37:00 Test Item Value Reference Range Interpretation Comments GLUCOMETER (test code 143 mg/dL 70-100 H Meter ID: = GMG) [id number] tor: [id number] RYLEY FONTANILLA GLUCOMETER GLUCOSE- LAB USE [id number] 16:50:00 Test Item Value Reference Range Interpretation Comments GLUCOMETER (test code 147 mg/dL 70-100 H CLEANE D METERMeter ID: = GMG) [id number] tor: [id number] DEPTI GIG A GLUCOMETER GLUCOSE- LAB USE [id number] 12:06:00 Test Item Value Reference Range Interpretation Comments GLUCOMETER (test code = 106 mg/dL 70-100 H Mete r ID: GMG) [id number] tor: [id number] LIZETT BORDEN GLUCOMETER GLUCOSE- LAB USE [id number] 12:06:00 Test Item Value Reference Range Interpretation Comments GLUCOMETER (test code = 122 mg/dL 70-100 H Mete r ID: GMG) [id number] tor: [id number] LIZETT BORDEN MAGNESIUM WW2022-09-28 05:56:00 Test Item Value Reference Range Interpretation Comments MAGNESIUM (test code = 48A) 2.1 mg/dL 1.6-2.6 PHOSPHORUS (P04) *WW*2022-09-28 05:55:00 Test Item Value Reference Range Interpretation Comments PHOSPHORUS (test code = 43D) 3.9 mg/dL 2.4-5.1 ALCOHOL BLOOD (ETOH) *WW*2022-09-28 05:53:00 Test Item Value Reference Range Interpretation Comments ETOH (test code = HALC) ETHANOL The result is to be used only for medical purposes ALCOHOL (test code = <10 mg/dL <=10 56A) COMPREHENSIVE METABOLIC ISNGH 2022-09-28 05:53:00 Test Item Value Reference Range Interpretation Comments GLUCOSE (test code = 114 mg/dL 75-100 H 06D) SODIUM (test code = 137 mmol/L 136-145 01A) POTASSIUM (test code = 3.6 mmol/L 3.6-5.1 01B) CHLORIDE (test code = 103 mmol/L 98-107 04A) CO2 (test code = 02A) 25 mmol/L 20-31 ANION GAP (test code = 12.6 mmol/L ANG) BUN (test code = 05D) 10 mg/dL 9-23 CREATININE (test code 0.7 mg/dL 0.6-1.0 = 03E) GFR (test code = GFR) 94 mL/min/1.73m\\S\\2 >=90 GFR 110 mL/min/1.73m\\S\\2 >=90 (test code = GFRAA) EGFR (test code = eGFR BY CKD-EPI EGFR) CALCULATION IS NOT RECOMMENDED FOR PATIENTS UNDER 18 YEARS OF AGE. BUN/CREA (test code = 14 12-20 BCR) CALCIUM (test code = 8.3 mg/dL 8.3-10.6 09D) BILI TOTAL (test code 0.7 mg/dL 0.2-1.0 = 11A) PROTEIN (test code = 5.5 g/dL 5.7-8.2 L 07D) ALBUMIN (test code = 3.7 g/dL 3.2-4.8 08D) GLOBULIN (test code = 1.8 g/dL 1.5-3.8 GLB) ALB/GLOB (test code = 2.0 1.0-2.6 AGRR) ALK PHOS (test code = 166 IU/L 46-116 H 35A) AST (test code = 30A) 132 IU/L <=33 H ALT (test code = 31A) 44 IU/L 10-49 CBC (INCLUDES AUTOMATED DIFFERENTIAL)*[id number] 05:41:00 Test Item Value Reference Range Interpretation Comments WBC (test code = WBC) 3.6 10\\S\\3/uL 4.5-11.0 L RBC (test code = RBC) 3.19 10\\S\\6/uL 4.20-5.60 L HGB (test code = HBG) 10.9 g/dL 12.0-15.5 L HCT (test code = HCT) 30.5 % 35.0-44.0 L MCV (test code = MCV) 95.6 fL 81.0-99.0 MCH (test code = MCH) 34.2 pg 27.0-31.0 H MCHC (test code = MCHC) 35.7 g/dL 32.0-36.0 RDW (test code = RDW) 12.9 % 11.5-14.5 PLT (test code = PLT) 94 10\\S\\3/uL 130-400 L MPV (test code = MPV) 9.9 fL 9.4-12.4 NEUTROP # (test code = NE#) 1.9 10\\S\\3/uL 1.6-8.0 LYMPH # (test code = LY#) 1.2 10\\S\\3/uL 1.1-3.5 MONOCYTE # (test code = MO#) 0.3 10\\S\\3/uL 0.0-1.1 EOSINOPH # (test code = EO#) 0.2 10\\S\\3/uL 0.0-0.7 BASOPHIL # (test code = BA#) 0.0 10\\S\\3/uL 0.0-0.3 IG # (test code = IG#) 0.04 10\\S\\3/uL 0.00-0.06 NRBC # (test code = NRBC#) 0.02 10\\S\\3/uL 0.00-0.01 H NEUTROPH % (test code = NE%) 53.0 % 35.0-73.0 LYMPH % (test code = LY%) 31.9 % 20.0-55.0 MONO % (test code = MO%) 8.8 % 2.5-10.0 EOSINOPH % (test code = EO%) 4.1 % 0.0-5.0 BASOPHIL % (test code = BA%) 1.1 % 0.0-2.0 IG % (test code = IG%) 1.1 % 0.0-0.8 H NRBC% (test code = NRBC%) 0.5 % 0.0-0.2 H MANDIFF (test code = WMDIFF) NO NO RBC MORPH (test code = NORMAL WRBCMOR) GLUCOMETER GLUCOSE- LAB USE [id number] 04:52:00 Test Item Value Reference Range Interpretation Comments GLUCOMETER (test code = GMG) 153 mg/dL 70-100 H GLUCOMETER GLUCOSE- LAB USE [id number] 17:03:00 Test Item Value Reference Range Interpretation Comments GLUCOMETER (test code = 116 mg/dL 70-100 H Mete r ID: GMG) [id number] tor: [id number] LETY PARRISH OBODA GLUCOMETER GLUCOSE- LAB USE [id number] 12:09:00 Test Item Value Reference Range Interpretation Comments GLUCOMETER (test code = 115 mg/dL 70-100 H Mete r ID: GMG) [id number] tor: [id number] DANITZA Green OMIN GLUCOMETER GLUCOSE- LAB USE [id number] 08:55:00 Test Item Value Reference Range Interpretation Comments GLUCOMETER (test code = 131 mg/dL 70-100 H Mete r ID: GMG) [id number] tor: [id number] NARA D ESHAZO GLUCOMETER GLUCOSE- LAB USE [id number] 00:51:00 Test Item Value Reference Range Interpretation Comments GLUCOMETER (test code 109 mg/dL 70-100 H CLEANE D METERMeter ID: = GMG) [id number] tor: [id number] RADHA PAMELA E MAGNESIUM 2022-09-26 07:15:00 Test Item Value Reference Range Interpretation Comments MAGNESIUM (test code = 48A) 1.3 mg/dL 1.6-2.6 LL PHOSPHORUS (P04) 2022-09-26 07:09:00 Test Item Value Reference Range Interpretation Comments PHOSPHORUS (test code = 43D) 1.8 mg/dL 2.4-5.1 L CBC (INCLUDES AUTOMATED DIFFERENTIAL)*[id number] 07:04:00 Test Item Value Reference Range Interpretation Comments WBC (test code = WBC) 3.4 10\\S\\3/uL 4.5-11.0 L RBC (test code = RBC) 3.55 10\\S\\6/uL 4.20-5.60 L HGB (test code = HBG) 11.8 g/dL 12.0-15.5 L HCT (test code = HCT) 34.4 % 35.0-44.0 L MCV (test code = MCV) 96.9 fL 81.0-99.0 MCH (test code = MCH) 33.2 pg 27.0-31.0 H MCHC (test code = MCHC) 34.3 g/dL 32.0-36.0 RDW (test code = RDW) 13.2 % 11.5-14.5 PLT (test code = PLT) 110 10\\S\\3/uL 130-400 L MPV (test code = MPV) 9.3 fL 9.4-12.4 L NEUTROP # (test code = NE#) 1.4 10\\S\\3/uL 1.6-8.0 L LYMPH # (test code = LY#) 1.6 10\\S\\3/uL 1.1-3.5 MONOCYTE # (test code = MO#) 0.2 10\\S\\3/uL 0.0-1.1 EOSINOPH # (test code = EO#) 0.1 10\\S\\3/uL 0.0-0.7 BASOPHIL # (test code = BA#) 0.0 10\\S\\3/uL 0.0-0.3 IG # (test code = IG#) 0.01 10\\S\\3/uL 0.00-0.06 NRBC # (test code = NRBC#) 0.00 10\\S\\3/uL 0.00-0.01 NEUTROPH % (test code = NE%) 41.2 % 35.0-73.0 LYMPH % (test code = LY%) 47.9 % 20.0-55.0 MONO % (test code = MO%) 7.1 % 2.5-10.0 EOSINOPH % (test code = EO%) 2.9 % 0.0-5.0 BASOPHIL % (test code = BA%) 0.6 % 0.0-2.0 IG % (test code = IG%) 0.3 % 0.0-0.8 NRBC% (test code = NRBC%) 0.0 % 0.0-0.2 MANDIFF (test code = WMDIFF) NO NO RBC MORPH (test code = NORMAL WRBCMOR) BASIC METABOLIC PANEL *WW*2022-09-26 07:03:00 Test Item Value Reference Range Interpretation Comments GLUCOSE (test code = 107 mg/dL 75-100 H 06D) SODIUM (test code = 140 mmol/L 136-145 01A) POTASSIUM (test code = 3.8 mmol/L 3.6-5.1 01B) CHLORIDE (test code = 106 mmol/L 98-107 04A) CO2 (test code = 02A) 24 mmol/L 20-31 ANION GAP (test code = 13.8 mmol/L ANG) BUN (test code = 05D) 7 mg/dL 9-23 L CREATININE (test code 0.7 mg/dL 0.6-1.0 = 03E) GFR (test code = GFR) 94 mL/min/1.73m\\S\\2 >=90 GFR 110 mL/min/1.73m\\S\\2 >=90 (test code = GFRAA) EGFR (test code = eGFR BY CKD-EPI EGFR) CALCULATION IS NOT RECOMMENDED FOR PATIENTS UNDER 18 YEARS OF AGE. BUN/CREA (test code = 10 12-20 L BCR) CALCIUM (test code = 7.7 mg/dL 8.3-10.6 L 09D) LIVER PROFILE WW2022-09-26 07:00:00 Test Item Value Reference Range Interpretation Comments BILI TOTAL (test code = 11A) 1.0 mg/dL 0.2-1.0 BILI DIRCT (test code = 12A) 0.4 mg/dL 0.0-0.3 H BILI INDIR (test code = BILII) 0.6 mg/dL <=0.8 PROTEIN (test code = 07D) 5.5 g/dL 5.7-8.2 L ALBUMIN (test code = 08D) 3.7 g/dL 3.2-4.8 GLOBULIN (test code = GLB) 1.8 g/dL 1.5-3.8 ALB/GLOB (test code = AGRR) 2.0 1.0-2.6 ALK PHOS (test code = 35A) 150 IU/L 46-116 H AST (test code = 30A) 57 IU/L <=33 H ALT (test code = 31A) 30 IU/L 10-49 LIPASE SERUM WW2022-09-26 07:00:00 Test Item Value Reference Range Interpretation Comments LIPASE (test code = 60A) 20 IU/L 12-53 AMMONIA BLOOD *WW*2022-09-25 21:42:00 Test Item Value Reference Range Interpretation Comments AMMONIA (test code = 54A) 52 umol/L 11-32 H TROPONIN I *WW*2022-09-25 19:28:00 Test Item Value Reference Range Interpretation Comments TROPONIN I (test code = A84) 3.54 pg/mL 0.00-45.20 CPK *WW*2022-09-25 18:25:00 Test Item Value Reference Range Interpretation Comments CPK (test code = 32A) 96 IU/L 34-145 MAGNESIUM WW2022-09-25 18:14:00 Test Item Value Reference Range Interpretation Comments MAGNESIUM (test code = 48A) 1.9 mg/dL 1.6-2.6 URINALYSIS WITH MICRO *WW*2022-09-25 17:03:00 Test Item Value Reference Range Interpretation Comments COLOR (test code = COLU) YELLOW YELLOW CLARITY (test code = CLA) CLEAR CLEAR GLUCOSE UR (test code = UA NEGATIVE NEGATIVE GLUCOSE) BILI UR (test code = BILE) NEGATIVE NEGATIVE KETONES UR (test code = JEYSON) NEGATIVE NEGATIVE SP GRAVITY (test code = SPGR) 1.010 1.005-1.030 PH UR (test code = PH) 6.5 4.5-8.0 PROTEIN UR (test code = PU) NEGATIVE NEGATIVE UROBIL UR (test code = UROQ) 0.2 EU/dL 0.2-1.0 NITRITE UR (test code = NITRITE) NEGATIVE NEGATIVE BLOOD UR (test code = UA BLOOD) TRACE-LYSED NEGATIVE A LEUK ES UR (test code = LEUK) NEGATIVE NEGATIVE WBC UR (test code = UWBC) 1 /HPF 0-5 RBC UR (test code = URBC) 3 /HPF 0-2 H EPITH UR (test code = UEPC) FEW /LPF FEW BACTERIA UR (test code = UBACT) FEW /HPF NONE A CAST UR (test code = CAST) /LPF NONE CRYSTAL UR (test code = CRYU) / LPF NONE MUCUS UR (test code = MUC) / HPF NONE AMORPH UR (test code = NICK) / HPF NONE TRICH UR (test code = UTRICH) /HPF NONE YEAST UR (test code = UY) /HPF NONE SPERM UR (test code = USPERM) /HPF NONE PRO TIME AND PTT *WW*2022-09-25 17:01:00 Test Item Value Reference Range Interpretation Comments PT (test code = 11.6 s 9.8-13.6 TT) INR (test code = 1.0 INR) INRH (test code = SUGGESTED THERAPEUTIC INRH) RANGE FOR INR: 2.5 - 3.5 For Patients with Prosthetic Valves or Patients with recurrent Thromboembolic Events 2.0 - 3.0 For Most Other Applications PTT (test code = 29.0 s 20.2-38.0 PTT) PTTH (test code = To monitor the PTTH) effectiveness of heparin, we offer the Anti-Xa (Heparin Assay). It can be used for either unfractionated or LMW Heparin. Order Code is ANTI-XA ACETAMINOPHEN *WW*2022-09-25 17:01:00 Test Item Value Reference Range Interpretation Comments ACETAMINPH (test code = 94M) <0.2 mg/dL 1.2-2.5 L COMPREHENSIVE METABOLIC SINGH *WW*2022-09-25 16:59:00 Test Item Value Reference Range Interpretation Comments GLUCOSE (test code = 147 mg/dL 75-100 H 06D) SODIUM (test code = 140 mmol/L 136-145 01A) POTASSIUM (test code = 2.8 mmol/L 3.6-5.1 LL 01B) CHLORIDE (test code = 103 mmol/L 98-107 04A) CO2 (test code = 02A) 25 mmol/L 20-31 ANION GAP (test code = 14.8 mmol/L ANG) BUN (test code = 05D) 5 mg/dL 9-23 L CREATININE (test code 0.7 mg/dL 0.6-1.0 = 03E) GFR (test code = GFR) 94 mL/min/1.73m\\S\\2 >=90 GFR 110 mL/min/1.73m\\S\\2 >=90 (test code = GFRAA) EGFR (test code = eGFR BY CKD-EPI EGFR) CALCULATION IS NOT RECOMMENDED FOR PATIENTS UNDER 18 YEARS OF AGE. BUN/CREA (test code = 7 12-20 L BCR) CALCIUM (test code = 9.1 mg/dL 8.3-10.6 09D) BILI TOTAL (test code 0.8 mg/dL 0.2-1.0 = 11A) PROTEIN (test code = 7.0 g/dL 5.7-8.2 07D) ALBUMIN (test code = 4.7 g/dL 3.2-4.8 08D) GLOBULIN (test code = 2.3 g/dL 1.5-3.8 GLB) ALB/GLOB (test code = 2.1 1.0-2.6 AGRR) ALK PHOS (test code = 194 IU/L 46-116 H 35A) AST (test code = 30A) 77 IU/L <=33 H ALT (test code = 31A) 41 IU/L 10-49 LIVER PROFILE WW2022-09-25 16:57:00 Test Item Value Reference Range Interpretation Comments BILI TOTAL (test code = 11A) 0.8 mg/dL 0.2-1.0 BILI DIRCT (test code = 12A) 0.3 mg/dL 0.0-0.3 BILI INDIR (test code = BILII) 0.5 mg/dL <=0.8 PROTEIN (test code = 07D) 6.8 g/dL 5.7-8.2 ALBUMIN (test code = 08D) 4.7 g/dL 3.2-4.8 GLOBULIN (test code = GLB) 2.1 g/dL 1.5-3.8 ALB/GLOB (test code = AGRR) 2.2 1.0-2.6 ALK PHOS (test code = 35A) 198 IU/L 46-116 H AST (test code = 30A) 79 IU/L <=33 H ALT (test code = 31A) 42 IU/L 10-49 SALICYLATES WW2022-09-25 16:56:00 Test Item Value Reference Range Interpretation Comments SALICYLATE (test code = 94B) <3.0 mg/dL 15.0-30.0 L ALCOHOL BLOOD (ETOH) *WW*2022-09-25 16:54:00 Test Item Value Reference Range Interpretation Comments ETOH (test code = HALC) ETHANOL The result is to be used only for medical purposes ALCOHOL (test code = 259 mg/dL <=10 H 56A) DRUGS OF ABUSE *[facility]2022-09-25 16:48:00 Test Item Value Reference Range Interpretation Comments DRUG SCRN (test code = URINE DRUG HDOA) SCREEN This is an unconfirmed screening result and should not be used for non-medical purposes CANNABINOD (test code NEGATIVE NEGATIVE = 88C) AMPHETAMINE (test code NEGATIVE NEGATIVE = 84A) BENZODIAZP (test code NEGATIVE NEGATIVE = 86A) BARBITURAT (test code NEGATIVE NEGATIVE = 85A) OPIATES (test code = NEGATIVE NEGATIVE 92B) COCAINE (test code = NEGATIVE NEGATIVE 87A) PHENCYCLID (test code NEGATIVE NEGATIVE = 66A) METHADONE (test code = NEGATIVE NEGATIVE 64A) DOAH (test code = DOAH.) URINE DRUGSCREEN Cut-off values are as follows: Cannabinoids 50 ng/mL Cocaine 300 ng/mL Amphetamines 1000 ng/mL Phencyclidine 25 ng/mL Benzodiazepines 200 ng.mL Methadone 300 ng/mL Barbiturates 200 ng/mL Opiates 300 ng/mL CBC (INCLUDES AUTOMATED DIFFERENTIAL)*[id number] 16:41:00 Test Item Value Reference Range Interpretation Comments WBC (test code = WBC) 4.7 10\\S\\3/uL 4.5-11.0 RBC (test code = RBC) 4.36 10\\S\\6/uL 4.20-5.60 HGB (test code = HBG) 14.6 g/dL 12.0-15.5 HCT (test code = HCT) 41.7 % 35.0-44.0 MCV (test code = MCV) 95.6 fL 81.0-99.0 MCH (test code = MCH) 33.5 pg 27.0-31.0 H MCHC (test code = MCHC) 35.0 g/dL 32.0-36.0 RDW (test code = RDW) 13.2 % 11.5-14.5 PLT (test code = PLT) 158 10\\S\\3/uL 130-400 MPV (test code = MPV) 9.6 fL 9.4-12.4 NEUTROP # (test code = NE#) 2.1 10\\S\\3/uL 1.6-8.0 LYMPH # (test code = LY#) 2.1 10\\S\\3/uL 1.1-3.5 MONOCYTE # (test code = MO#) 0.4 10\\S\\3/uL 0.0-1.1 EOSINOPH # (test code = EO#) 0.1 10\\S\\3/uL 0.0-0.7 BASOPHIL # (test code = BA#) 0.0 10\\S\\3/uL 0.0-0.3 IG # (test code = IG#) 0.01 10\\S\\3/uL 0.00-0.06 NRBC # (test code = NRBC#) 0.02 10\\S\\3/uL 0.00-0.01 H NEUTROPH % (test code = NE%) 45.0 % 35.0-73.0 LYMPH % (test code = LY%) 45.0 % 20.0-55.0 MONO % (test code = MO%) 7.9 % 2.5-10.0 EOSINOPH % (test code = EO%) 1.3 % 0.0-5.0 BASOPHIL % (test code = BA%) 0.6 % 0.0-2.0 IG % (test code = IG%) 0.2 % 0.0-0.8 NRBC% (test code = NRBC%) 0.4 % 0.0-0.2 H MANDIFF (test code = WMDIFF) NO NO RBC MORPH (test code = NORMAL WRBCMOR) SARS-CoV (RAPID ANTIGEN) WW2022-09-25 16:41:00 Test Item Value Reference Range Interpretation Comments SARS-CoV (ANTIGEN) NEGATIVE NEGATIVE (test code = COVAG) COVID AG (test This test has been code = COVAGC) marketed under the FDA Emergency Use Authorization (EUA) to meet challenges of the COVID-19 pandemic. The validation standards normally enforced by the FDA and the [employer] ([employer]) are more stringent than those required for this test. Therefore, the result should be interpreted with caution and close attention to other clinical and epidemiological data Panel Description: [facility], [id number] 22:50:00 Test Item Value Reference Range Interpretation Comments Summary Report FINAL (Summary) (test code = 69417-4) ========TOXA SSURE COMP DRUG ANALYSIS,UR==== ====Test Result Flag UnitsDrug Present Alcohol, Ethyl 0.187 g/dL Sources of ethy l alcohol include alcohol ic beverages or as a fermentati on product of glucose; glucos e was not detected in thi s specimen. Ethyl alcohol r esult should be interpreted in the context of all available c linical and behavioral info rmation. Gabapentin PRES ENT Trazodone PRESENT 1,3 chl orophenyl piperazine PRES ENT 1,3-chloropheny l piperazine is an expected met abolite of trazodone. Venl afaxine PRESENT Desmethylvenlaf axine PRESENT Desmethylvenlaf axine is an expected metabo lite of venlafaxine. Ac etaminophen PRESENT Ibuprof en PRESENT Naproxen PRESEN T Diphenhydramine PRESENT======== Test Result Flag Units Ref Range Creatinine 136 mg/dL >=20 Dec lared Medications: Me dication list was not provided.====== ==For clinical consultation, p lease call .====== ==Performed by:[employer] (MX) PDF (test code = . 41505-0) [facility] Description: [facility] Analysis, [id number] 22:50:00 Test Item Value Reference Range Interpretation Comments Summary Report FINAL (Summary) (test code = 45748-7) ========TOXA SSURE COMP DRUG ANALYSIS,UR==== ====Test Result Flag UnitsDrug Present Alcohol, Ethyl 0.187 g/dL Sources of ethy l alcohol include alcohol ic beverages or as a fermentati on product of glucose; glucos e was not detected in thi s specimen. Ethyl alcohol r esult should be interpreted in the context of all available c linical and behavioral info rmation. Gabapentin PRES ENT Trazodone PRESENT 1,3 chl orophenyl piperazine PRES ENT 1,3-chloropheny l piperazine is an expected met abolite of trazodone. Venl afaxine PRESENT Desmethylvenlaf axine PRESENT Desmethylvenlaf axine is an expected metabo lite of venlafaxine. Ac etaminophen PRESENT Ibuprof en PRESENT Naproxen PRESEN T Diphenhydramine PRESENT======== Test Result Flag Units Ref Range Creatinine 136 mg/dL >=20 Dec lared Medications: Me dication list was not provided.====== ==For clinical consultation, p rosa call .====== ==Performed by:[facility] (MX) PDF (test code = . 59962-5) [facility] Description: Compliance Drug Analysis, [id number] 22:50:00 Test Item Value Reference Range Interpretation Comments Summary Report FINAL (Summary) (test code = 04575-1) ========TOXA SSURE COMP DRUG ANALYSIS,UR==== ====Test Result Flag UnitsDrug Present Alcohol, Ethyl 0.187 g/dL Sources of ethy l alcohol include alcohol ic beverages or as a fermentati on product of glucose; glucos e was not detected in thi s specimen. Ethyl alcohol r esult should be interpreted in the context of all available c linical and behavioral info rmation. Gabapentin PRES ENT Trazodone PRESENT 1,3 chl orophenyl piperazine PRES ENT 1,3-chloropheny l piperazine is an expected met abolite of trazodone. Venl afaxine PRESENT Desmethylvenlaf axine PRESENT Desmethylvenlaf axine is an expected metabo lite of venlafaxine. Ac etaminophen PRESENT Ibuprof en PRESENT Naproxen PRESEN T Diphenhydramine PRESENT======== Test Result Flag Units Ref Range Creatinine 136 mg/dL >=20 Dec lared Medications: Me dication list was not provided.====== ==For clinical consultation, p lease call .====== ==Performed by:[facility] ([place]) PDF (test code = . 83214-6) [facility] Description: Compliance Drug Analysis, [id number] 22:50:00 Test Item Value Reference Range Interpretation Comments Summary Report FINAL (Summary) (test code = 65636-2) ========TOXA SSURE COMP DRUG ANALYSIS,UR==== ====Test Result Flag UnitsDrug Present Alcohol, Ethyl 0.187 g/dL Sources of ethy l alcohol include alcohol ic beverages or as a fermentati on product of glucose; glucos e was not detected in thi s specimen. Ethyl alcohol r esult should be interpreted in the context of all available c linical and behavioral info rmation. Gabapentin PRES ENT Trazodone PRESENT 1,3 chl orophenyl piperazine PRES ENT 1,3-chloropheny l piperazine is an expected met abolite of trazodone. Venl afaxine PRESENT Desmethylvenlaf axine PRESENT Desmethylvenlaf axine is an expected metabo lite of venlafaxine. Ac etaminophen PRESENT Ibuprof en PRESENT Naproxen PRESEN T Diphenhydramine PRESENT======== Test Result Flag Units Ref Range Creatinine 136 mg/dL >=20 Dec lared Medications: Me dication list was not provided.====== ==For clinical consultation, p lease call .====== ==Performed by:[facility] (MX) PDF (test code = . 54485-1) [facility] Description: Compliance Drug Analysis, [id number] 22:50:00 Test Item Value Reference Range Interpretation Comments Summary Report FINAL (Summary) (test code = 94721-3) ========TOXA SSURE COMP DRUG ANALYSIS,UR==== ====Test Result Flag UnitsDrug Present Alcohol, Ethyl 0.187 g/dL Sources of ethy l alcohol include alcohol ic beverages or as a fermentati on product of glucose; glucos e was not detected in thi s specimen. Ethyl alcohol r esult should be interpreted in the context of all available c linical and behavioral info rmation. Gabapentin PRES ENT Trazodone PRESENT 1,3 chl orophenyl piperazine PRES ENT 1,3-chloropheny l piperazine is an expected met abolite of trazodone. Venl afaxine PRESENT Desmethylvenlaf axine PRESENT Desmethylvenlaf axine is an expected metabo lite of venlafaxine. Ac etaminophen PRESENT Ibuprof en PRESENT Naproxen PRESEN T Diphenhydramine PRESENT======== Test Result Flag Units Ref Range Creatinine 136 mg/dL >=20 Dec lared Medications: Me dication list was not provided.====== ==For clinical consultation, p lease call .====== ==Performed by:[facility] (MX) PDF (test code = . 18259-7) [facility] Description: Compliance Drug Analysis, [id number] 22:50:00 Test Item Value Reference Range Interpretation Comments Summary Report FINAL (Summary) (test code = 86921-0) ========TOXA SSURE COMP DRUG ANALYSIS,UR==== ====Test Result Flag UnitsDrug Present Alcohol, Ethyl 0.187 g/dL Sources of ethy l alcohol include alcohol ic beverages or as a fermentati on product of glucose; glucos e was not detected in thi s specimen. Ethyl alcohol r esult should be interpreted in the context of all available c linical and behavioral info rmation. Gabapentin PRES ENT Trazodone PRESENT 1,3 chl orophenyl piperazine PRES ENT 1,3-chloropheny l piperazine is an expected met abolite of trazodone. Venl afaxine PRESENT Desmethylvenlaf axine PRESENT Desmethylvenlaf axine is an expected metabo lite of venlafaxine. Ac etaminophen PRESENT Ibuprof en PRESENT Naproxen PRESEN T Diphenhydramine PRESENT======== Test Result Flag Units Ref Range Creatinine 136 mg/dL >=20 Dec lared Medications: Me dication list was not provided.====== ==For clinical consultation, p lease call .====== ==Performed by:[facility] Complete (MX) PDF (test code = . 38913-4) [facility] Description: [facility], [id number] 22:50:00 Test Item Value Reference Range Interpretation Comments Summary Report FINAL (Summary) (test code = 49943-4) ========TOXA SSURE COMP DRUG ANALYSIS,UR==== ====Test Result Flag Uni tsDrug Present Alcohol, Ethyl 0.187 g/dL Sources of ethy l alcohol include alcohol ic beverages or as a fermentati on product of glucose; glucos e was not detected in thi s specimen. Ethyl alcohol r esult should be interpreted in the context of all available c linical and behavioral info rmation. Gabapentin PRE SENT Trazodone PRESENT 1,3 chl orophenyl piperazine PRES ENT 1,3-chloropheny l piperazine is an expected met abolite of trazodone. Venl afaxine PRESENT Desmeth ylvenlafaxine PRESENT Desmeth ylvenlafaxine is an expected metabolite of venlafaxine. Ac etaminophen PRESENT Ibuprof en PRESENT Naproxen PRESEN T Diphenhydramine PRESENT======== Test Result Flag Units Ref Range Creatinine 136 mg/dL >=20 Dec lared Medications: Me dication list was not provided.====== ==For clinical consultation, p rosa call .====== ==Performed by:[facility] (MX) PDF (test code = . 76823-2) [facility] Description: [facility], [id number] 22:50:00 Test Item Value Reference Range Interpretation Comments Summary Report FINAL (Summary) (test code = 39059-9) ========TOXA SSURE COMP DRUG ANALYSIS,UR==== ====Test Result Flag UnitsDrug Present Alcohol, Ethyl 0.187 g/dL Sources of ethy l alcohol include alcohol ic beverages or as a fermentati on product of glucose; glucos e was not detected in thi s specimen. Ethyl alcohol r esult should be interpreted in the context of all available c linical and behavioral info rmation. Gabapentin PRES ENT Trazodone PRESENT 1,3 chl orophenyl piperazine PRES ENT 1,3-chloropheny l piperazine is an expected met abolite of trazodone. Venl afaxine PRESENT Desmethylvenlaf axine PRESENT Desmethylvenlaf axine is an expected metabo lite of venlafaxine. Ac etaminophen PRESENT Ibuprof en PRESENT Naproxen PRESEN T Diphenhydramine PRESENT======== Test Result Flag Units Ref Range Creatinine 136 mg/dL >=20 Dec lared Medications: Me dication list was not provided.====== ==For clinical consultation, p lease call .====== ==Performed by:[facility] (MX) PDF (test code = . 86166-3) [facility] Description: [facility], [id number] 22:50:00 Test Item Value Reference Range Interpretation Comments Summary Report FINAL (Summary) (test code = 30024-7) ========TOXA SSURE COMP DRUG ANALYSIS,UR==== ====Test Result Flag UnitsDrug Present Alcohol, Ethyl 0.187 g/dL Sources of ethy l alcohol include alcohol ic beverages or as a fermentati on product of glucose; glucos e was not detected in thi s specimen. Ethyl alcohol r esult should be interpreted in the context of all available c linical and behavioral info rmation. Gabapentin PRES ENT Trazodone PRESENT 1,3 chl orophenyl piperazine PRES ENT 1,3-chloropheny l piperazine is an expected met abolite of trazodone. Venl afaxine PRESENT Desmethylvenlaf axine PRESENT Desmethylvenlaf axine is an expected metabo lite of venlafaxine. Ac etaminophen PRESENT Ibuprof en PRESENT Naproxen PRESEN T Diphenhydramine PRESENT======== Test Result Flag Units Ref Range Creatinine 136 mg/dL >=20 Dec lared Medications: Me dication list was not provided.====== ==For clinical consultation, p lease call .====== ==Performed by:[facility] (MX) PDF (test code = . 06705-3) [facility] Description: [facility], [id number] 22:50:00 Test Item Value Reference Range Interpretation Comments Summary Report FINAL (Summary) (test code = 55626-4) ========TOXA SSURE COMP DRUG ANALYSIS,UR==== ====Test Result Flag UnitsDrug Present Alcohol, Ethyl 0.187 g/dL Sources of ethy l alcohol include alcohol ic beverages or as a fermentati on product of glucose; glucos e was not detected in thi s specimen. Ethyl alcohol r esult should be interpreted in the context of all available c linical and behavioral info rmation. Gabapentin PRES ENT Trazodone PRESENT 1,3 chl orophenyl piperazine PRES ENT 1,3-chloropheny l piperazine is an expected met abolite of trazodone. Venl afaxine PRESENT Desmethylvenlaf axine PRESENT Desmethylvenlaf axine is an expected metabo lite of venlafaxine. Ac etaminophen PRESENT Ibuprof en PRESENT Naproxen PRESEN T Diphenhydramine PRESENT======== Test Result Flag Units Ref Range Creatinine 136 mg/dL >=20 Dec lared Medications: Me dication list was not provided.====== ==For clinical consultation, p lease call .====== ==Performed by:[facility] (MX) PDF (test code = . 16918-9) [facility] Description: [facility], [id number] 22:50:00 Test Item Value Reference Range Interpretation Comments Summary Report FINAL (Summary) (test code = 79485-4) ========TOXA SSURE COMP DRUG ANALYSIS,UR==== ====Test Result Flag UnitsDrug Present Alcohol, Ethyl 0.187 g/dL Sources of ethy l alcohol include alcohol ic beverages or as a fermentati on product of glucose; glucos e was not detected in thi s specimen. Ethyl alcohol r esult should be interpreted in the context of all available c linical and behavioral info rmation. Gabapentin PRES ENT Trazodone PRESENT 1,3 chl orophenyl piperazine PRES ENT 1,3-chloropheny l piperazine is an expected met abolite of trazodone. Venl afaxine PRESENT Desmethylvenlaf axine PRESENT Desmethylvenlaf axine is an expected metabo lite of venlafaxine. Ac etaminophen PRESENT Ibuprof en PRESENT Naproxen PRESE NT Diphenhydramine PRESENT======== Test Result Flag Units Ref Range Creatinine 136 mg/dL >=20 Dec lared Medications: Me dication list was not provided.====== ==For clinical consultation, p lease call .====== ==Performed by:[email or web address] ([employer] [employer]) PDF (test code = . 68973-4) [facility] Description: [facility], [id number] 22:50:00 Test Item Value Reference Range Interpretation Comments Summary Report FINAL (Summary) (test code = 68379-0) ========TOXA SSURE COMP DRUG ANALYSIS,UR==== ====Test Result Flag Uni tsDrug Present Alcohol, Ethyl 0.187 g/dL Sources of ethy l alcohol include alcohol ic beverages or as a fermentati on product of glucose; glucos e was not detected in thi s specimen. Ethyl alcohol r esult should be interpreted in the context of all available c linical and behavioral info rmation. Gabapentin PRES ENT Trazodone PRESENT 1,3 chl orophenyl piperazine PRES ENT 1,3-chloropheny l piperazine is an expected met abolite of trazodone. Venl afaxine PRESENT Desmethylvenlaf axine PRESENT Desmethylvenlaf axine is an expected metabo lite of venlafaxine. Ac etaminophen PRESENT Ibuprof en PRESENT Naproxen PRESEN T Diphenhydramine PRESENT======== Test Result Flag Units Ref Range Creatinine 136 mg/dL >=20 Dec lared Medications: Me dication list was not provided.====== ==For clinical consultation, joe lee call .====== ==Performed by:[facility] (MX) PDF (test code = . 29227-4) [facility] Description: [facility], [id number] 22:50:00 Test Item Value Reference Range Interpretation Comments Summary Report FINAL (Summary) (test code = 23331-6) ========TOXA SSURE COMP DRUG ANALYSIS,UR==== ====Test Result Flag UnitsDrug Present Alcohol, Ethyl 0.187 g/dL Sources of ethy l alcohol include alcohol ic beverages or as a fermentati on product of glucose; glucos e was not detected in thi s specimen. Ethyl alcohol r esult should be interpreted in the context of all available c linical and behavioral info rmation. Gabapentin PRES ENT Trazodone PRESENT 1,3 chl orophenyl piperazine PRES ENT 1,3-chloropheny l piperazine is an expected met abolite of trazodone. Venl afaxine PRESENT Desmethylvenlaf axine PRESENT Desmethylvenlaf axine is an expected metabo lite of venlafaxine. Ac etaminophen PRESENT Ibuprof en PRESENT Naproxen PRESEN T Diphenhydramine PRESENT======== Test Result Flag Units Ref Range Creatinine 136 mg/dL >=20 Dec lared Medications: Me dication list was not provided.====== ==For clinical consultation, joe lee call .====== ==Performed by:[facility] ([employer]) PDF (test code = . 02757-7) [facility] Description: [facility], [id number] 22:50:00 Test Item Value Reference Range Interpretation Comments Summary Report FINAL (Summary) (test code = 68848-2) ========TOXA SSURE COMP DRUG ANALYSIS,UR==== ====Test Result Flag UnitsDrug Present Alcohol, Ethyl 0.187 g/dL Sources of ethy l alcohol include alcohol ic beverages or as a fermentati on product of glucose; glucos e was not detected in thi s specimen. Ethyl alcohol r esult should be interpreted in the context of all available c linical and behavioral info rmation. Gabapentin PRES ENT Trazodone PRESENT 1,3 chl orophenyl piperazine PRES ENT 1,3-chloropheny l piperazine is an expected met abolite of trazodone. Venl afaxine PRESENT Desmethylvenlaf axine PRESENT Desmethylvenlaf axine is an expected metabo lite of venlafaxine. Ac etaminophen PRESENT Ibuprof en PRESENT Naproxen PRESEN T Diphenhydramine PRESENT======== Test Result Flag Units Ref Range Creatinine 136 mg/dL >=20 Dec lared Medications: Me dication list was not provided.====== ==For clinical consultation, p lease call .====== ==Performed by:[facility] (MX) PDF (test code = . 23319-2) [facility] Description: [facility], [id number] 22:50:00 Test Item Value Reference Range Interpretation Comments Summary Report FINAL (Summary) (test code = 92058-7) ========TOXA SSURE COMP DRUG ANALYSIS,UR==== ====Test Result Flag UnitsDrug Present Alcohol, Ethyl 0.187 g/dL Sources of ethy l alcohol include alcohol ic beverages or as a fermentati on product of glucose; glucos e was not detected in thi s specimen. Ethyl alcohol r esult should be interpreted in the context of all available c linical and behavioral info rmation. Gabapentin PRES ENT Trazodone PRESENT 1,3 chl orophenyl piperazine PRES ENT 1,3-chloropheny l piperazine is an expected met abolite of trazodone. Venl afaxine PRESENT Desmethylvenlaf axine PRESENT Desmethylvenlaf axine is an expected metabo lite of venlafaxine. Ac etaminophen PRESENT Ibuprof en PRESENT Naproxen PRESEN T Diphenhydramine PRESENT======== Test Result Flag Units Ref Range Creatinine 136 mg/dL >=20 Dec lared Medications: Me dication list was not provided.====== ==For clinical consultation, p lease call .====== ==Performed by:[facility] (MX) PDF (test code = . 42411-2) [facility] Description: [facility], [id number] 22:50:00 Test Item Value Reference Range Interpretation Comments Summary Report FINAL (Summary) (test code = 22898-4) ========TOXA SSURE COMP DRUG ANALYSIS,UR==== ====Test Result Flag UnitsDrug Present Alcohol, Ethyl 0.187 g/dL Sources of ethy l alcohol include alcohol ic beverages or as a fermentati on product of glucose; glucos e was not detected in thi s specimen. Ethyl alcohol r esult should be interpreted in the context of all available c linical and behavioral info rmation. Gabapentin PRES ENT Trazodone PRESENT 1,3 chl orophenyl piperazine PRES ENT 1,3-chloropheny l piperazine is an expected met abolite of trazodone. Venl afaxine PRESENT Desmethylvenlaf axine PRESENT Desmethylvenlaf axine is an expected metabo lite of venlafaxine. Ac etaminophen PRESENT Ibuprof en PRESENT Naproxen PRESEN T Diphenhydramine PRESENT======== Test Result Flag Units Ref Range Creatinine 136 mg/dL >=20 Dec lared Medications: Me dication list was not provided.====== ==For clinical consultation, p lease call .====== ==Performed by:[facility] (MX) PDF (test code = . 64857-5) [facility] Description: [facility], [id number] 22:50:00 Test Item Value Reference Range Interpretation Comments Summary Report FINAL (Summary) (test code = 76364-8) ========TOXA SSURE COMP DRUG ANALYSIS,UR==== ====Test Result Flag UnitsDrug Present Alcohol, Ethyl 0.187 g/dL Sources of ethy l alcohol include alcohol ic beverages or as a fermentati on product of glucose; glucos e was not detected in thi s specimen. Ethyl alcohol r esult should be interpreted in the context of all available c linical and behavioral info rmation. Gabapentin PRES ENT Trazodone PRESENT 1,3 chl orophenyl piperazine PRES ENT 1,3-chloropheny l piperazine is an expected met abolite of trazodone. Venl afaxine PRESENT Desmethylvenlaf axine PRESENT Desmethylvenlaf axine is an expected metabo lite of venlafaxine. Ac etaminophen PRESENT Ibuprof en PRESENT Naproxen PRESEN T Diphenhydramine PRESENT======== Test Result Flag Units Ref Range Creatinine 136 mg/dL >=20 Dec lared Medications: Me dication list was not provided.====== ==For clinical consultation, rosa call .====== ==Performed by:[facility] (MX) PDF (test code = . 59490-5) [facility] Description: [facility], [id number] 22:50:00 Test Item Value Reference Range Interpretation Comments Summary Report FINAL (Summary) (test code = 84488-7) ========TOXA SSURE COMP DRUG ANALYSIS,UR==== ====Test Result Flag UnitsDrug Present Alcohol, Ethyl 0.187 g/dL Sources of ethy l alcohol include alcohol ic beverages or as a fermentati on product of glucose; glucos e was not detected in thi s specimen. Ethyl alcohol r esult should be interpreted in the context of all available c linical and behavioral info rmation. Gabapentin PRES ENT Trazodone PRESENT 1,3 chl orophenyl piperazine PRES ENT 1,3-chloropheny l piperazine is an expected met abolite of trazodone. Venl afaxine PRESENT Desmethylvenlaf axine PRESENT Desmethylvenlaf axine is an expected metabo lite of venlafaxine. Ac etaminophen PRESENT Ibuprof en PRESENT Naproxen PRESEN T Diphenhydramine PRESENT======== Test Result Flag Units Ref Range Creatinine 136 mg/dL >=20 Dec lared Medications: Me dication list was not provided.====== ==For clinical consultation, joe lee call .====== ==Performed by:[facility] (MX) PDF (test code = . 94911-1) [facility] Description: [facility], [id number] 22:50:00 Test Item Value Reference Range Interpretation Comments Summary Report FINAL (Summary) (test code = 31817-1) ========TOXA SSURE COMP DRUG ANALYSIS,UR==== ====Test Result Flag UnitsDrug Present Alcohol, Ethyl 0.187 g/dL Sources of ethy l alcohol include alcohol ic beverages or as a fermentati on product of glucose; glucos e was not detected in thi s specimen. Ethyl alcohol r esult should be interpreted in the context of all available c linical and behavioral info rmation. Gabapentin PRES ENT Trazodone PRESENT 1,3 chl orophenyl piperazine PRES ENT 1,3-chloropheny l piperazine is an expected met abolite of trazodone. Venl afaxine PRESENT Desmethylvenlaf axine PRESENT Desmethylvenlaf axine is an expected metabo lite of venlafaxine. Ac etaminophen PRESENT Ibuprof en PRESENT Naproxen PRESEN T Diphenhydramine PRESENT======== Test Result Flag Units Ref Range Creatinine 136 mg/dL >=20 Dec lared Medications: Me dication list was not provided.====== ==For clinical consultation, p lease call .====== ==Performed by:[facility] [employer] (MX) PDF (test code = . 06082-9) [facility] Description: [facility], [id number] 22:50:00 Test Item Value Reference Range Interpretation Comments Summary Report FINAL (Summary) (test code = 27931-4) ========TOXA SSURE COMP DRUG ANALYSIS,UR==== ====Test Result Flag UnitsDrug Present Alcohol, Ethyl 0.187 g/dL Sources of ethy l alcohol include alcohol ic beverages or as a fermentati on product of glucose; glucos e was not detected in thi s specimen. Ethyl alcohol r esult should be interpreted in the context of all available c linical and behavioral info rmation. Gabapentin PRES ENT Trazodone PRESENT 1,3 chl orophenyl piperazine PRES ENT 1,3-chloropheny l piperazine is an expected met abolite of trazodone. Venl afaxine PRESENT Desmethylvenlaf axine PRESENT Desmethylvenlaf axine is an expected metabo lite of venlafaxine. Ac etaminophen PRESENT Ibuprof en PRESENT Naproxen PRESEN T Diphenhydramine PRESENT======== Test Result Flag Units Ref Range Creatinine 136 mg/dL >=20 Dec lared Medications: Me dication list was not provided.====== ==For clinical consultation, p lease call .====== ==Performed by:[facility] (MX) PDF (test code = . 55014-7) [facility] Description: [facility], [id number] 22:50:00 Test Item Value Reference Range Interpretation Comments Summary Report FINAL (Summary) (test code = 82449-2) ========TOXA SSURE COMP DRUG ANALYSIS,UR==== ====Test Result Flag Uni tsDrug Present Alcohol, Ethyl 0.187 g/dL Sources of ethy l alcohol include alcohol ic beverages or as a fermentati on product of glucose; glucos e was not detected in thi s specimen. Ethyl alcohol r esult should be interpreted in the context of all available c linical and behavioral info rmation. Gabapentin PRE SENT Trazodone PRESENT 1,3 chl orophenyl piperazine PRES ENT 1,3-chloropheny l piperazine is an expected met abolite of trazodone. Venl afaxine PRESENT Desmeth ylvenlafaxine PRESENT Desmeth ylvenlafaxine is an expected metabolite of venlafaxine. Ac etaminophen PRESENT Ibuprof en PRESENT Naproxen PRESEN T Diphenhydramine PRESENT======== Test Result Flag Units Ref Range Creatinine 136 mg/dL >=20 Dec lared Medications: Me dication list was not provided.====== ==For clinical consultation, p lease call .====== ==Performed by:[facility] (MX) PDF (test code = . 90511-0) [facility] Description: [facility], [id number] 22:50:00 Test Item Value Reference Range Interpretation Comments Summary Report FINAL (Summary) (test code = 14056-1) ========TOXA SSURE COMP DRUG ANALYSIS,UR==== ====Test Result Flag UnitsDrug Present Alcohol, Ethyl 0.187 g/dL Sources of ethy l alcohol include alcohol ic beverages or as a fermentati on product of glucose; glucos e was not detected in thi s specimen. Ethyl alcohol r esult should be interpreted in the context of all available c linical and behavioral info rmation. Gabapentin PRES ENT Trazodone PRESENT 1,3 chl orophenyl piperazine PRES ENT 1,3-chloropheny l piperazine is an expected met abolite of trazodone. Venl afaxine PRESENT Desmethylvenlaf axine PRESENT Desmethylvenlaf axine is an expected metabo lite of venlafaxine. Ac etaminophen PRESENT Ibuprof en PRESENT Naproxen PRESEN T Diphenhydramine PRESENT======== Test Result Flag Units Ref Range Creatinine 136 mg/dL >=20 Dec lared Medications: Me dication list was not provided.====== ==For clinical consultation, p rosa call .====== ==Performed by:[facility] (MX) PDF (test code = . 97613-0) [facility] Description: Chlamydia/GC [id number] 09:01:00 Test Item Value Reference Range Interpretation Comments Chlamydia trachomatis, MATIAS (test Negative Negative code = 32444-3) Neisseria gonorrhoeae, MATIAS (test Negative Negative code = 19759-6) [facility] Description: Chlamydia/GC [id number] 09:01:00 Test Item Value Reference Range Interpretation Comments Chlamydia trachomatis, MATIAS (test Negative Negative code = 89473-4) Neisseria gonorrhoeae, MATIAS (test Negative Negative code = 31318-6) [facility] Description: Chlamydia/GC [id number] 09:01:00 Test Item Value Reference Range Interpretation Comments Chlamydia trachomatis, MATIAS (test Negative Negative code = 80668-0) Neisseria gonorrhoeae, MATIAS (test Negative Negative code = 08297-1) [facility] Description: Chlamydia/GC [id number] 09:01:00 Test Item Value Reference Range Interpretation Comments Chlamydia trachomatis, MATIAS (test Negative Negative code = 88890-2) Neisseria gonorrhoeae, MATIAS (test Negative Negative code = 19898-4) [facility] Description: Chlamydia/GC [id number] 09:01:00 Test Item Value Reference Range Interpretation Comments Chlamydia trachomatis, MATIAS (test Negative Negative code = 05546-1) Neisseria gonorrhoeae, MATIAS (test Negative Negative code = 52250-3) [facility] Description: Chlamydia/GC [id number] 09:01:00 Test Item Value Reference Range Interpretation Comments Chlamydia trachomatis, MATIAS (test Negative Negative code = 22605-4) Neisseria gonorrhoeae, MATIAS (test Negative Negative code = 81400-9) [facility] Description: Chlamydia/GC [id number] 09:01:00 Test Item Value Reference Range Interpretation Comments Chlamydia trachomatis, MATIAS (test Negative Negative code = 07943-0) Neisseria gonorrhoeae, MATIAS (test Negative Negative code = 74791-0) [facility] Description: Chlamydia/GC [id number] 09:01:00 Test Item Value Reference Range Interpretation Comments Chlamydia trachomatis, MATIAS (test Negative Negative code = 94528-1) Neisseria gonorrhoeae, MATIAS (test Negative Negative code = 42936-2) [facility] Description: Chlamydia/GC [id number] 09:01:00 Test Item Value Reference Range Interpretation Comments Chlamydia trachomatis, MATIAS (test Negative Negative code = 88279-1) Neisseria gonorrhoeae, MATIAS (test Negative Negative code = 92825-8) [facility] Description: Chlamydia/GC [id number] 09:01:00 Test Item Value Reference Range Interpretation Comments Chlamydia trachomatis, MATIAS (test Negative Negative code = 98261-4) Neisseria gonorrhoeae, MATIAS (test Negative Negative code = 31692-4) [facility] Description: Chlamydia/GC [id number] 09:01:00 Test Item Value Reference Range Interpretation Comments Chlamydia trachomatis, MATIAS (test Negative Negative code = 45651-7) Neisseria gonorrhoeae, MATIAS (test Negative Negative code = 97427-6) [facility] Description: Chlamydia/GC Pyktnkkbeorua4349-25-01 09:01:00 Test Item Value Reference Range Interpretation Comments Chlamydia trachomatis, MATIAS (test Negative Negative code = 91442-2) Neisseria gonorrhoeae, MATIAS (test Negative Negative code = 54541-2) [facility] Description: Chlamydia/GC Ykgkbsldmhtix6499-47-22 09:01:00 Test Item Value Reference Range Interpretation Comments Chlamydia trachomatis, MATIAS (test Negative Negative code = 08990-8) Neisseria gonorrhoeae, MATIAS (test Negative Negative code = 21871-0) [facility] Description: Chlamydia/GC Yreektrogobtl0197-71-97 09:01:00 Test Item Value Reference Range Interpretation Comments Chlamydia trachomatis, MATIAS (test Negative Negative code = 24821-3) Neisseria gonorrhoeae, MATIAS (test Negative Negative code = 74021-0) [facility] Description: Chlamydia/GC [id number] 09:01:00 Test Item Value Reference Range Interpretation Comments Chlamydia trachomatis, MATIAS (test Negative Negative code = 94828-9) Neisseria gonorrhoeae, MATIAS (test Negative Negative code = 01852-9) [facility] Description: Chlamydia/GC Eidhdagsxgxgi7820-18-92 09:01:00 Test Item Value Reference Range Interpretation Comments Chlamydia trachomatis, MATIAS (test Negative Negative code = 79251-6) Neisseria gonorrhoeae, MATIAS (test Negative Negative code = 15918-2) [facility] Description: Chlamydia/GC Wrvgmhaxehdar6871-42-72 09:01:00 Test Item Value Reference Range Interpretation Comments Chlamydia trachomatis, MATIAS (test Negative Negative code = 96961-2) Neisseria gonorrhoeae, MATIAS (test Negative Negative code = 88097-6) [facility] Description: Chlamydia/GC Xkvzudnvvhwmx5168-13-79 09:01:00 Test Item Value Reference Range Interpretation Comments Chlamydia trachomatis, MATIAS (test Negative Negative code = 00256-9) Neisseria gonorrhoeae, MATIAS (test Negative Negative code = 66641-6) [facility] Description: Chlamydia/GC Qyfulpynvsxug3836-45-14 09:01:00 Test Item Value Reference Range Interpretation Comments Chlamydia trachomatis, MATIAS (test Negative Negative code = 95236-4) Neisseria gonorrhoeae, MATIAS (test Negative Negative code = 00273-9) [facility] Description: Chlamydia/GC Yocnwqroouxkp4224-77-63 09:01:00 Test Item Value Reference Range Interpretation Comments Chlamydia trachomatis, MATIAS (test Negative Negative code = 04123-9) Neisseria gonorrhoeae, MATIAS (test Negative Negative code = 97563-8) [facility] Description: Chlamydia/GC Pdskajupbmsxu2118-57-89 09:01:00 Test Item Value Reference Range Interpretation Comments Chlamydia trachomatis, MATIAS (test Negative Negative code = 49870-6) Neisseria gonorrhoeae, MATIAS (test Negative Negative code = 21863-5) [facility] Description: Chlamydia/GC Iacdshilrokbb4655-55-08 09:01:00 Test Item Value Reference Range Interpretation Comments Chlamydia trachomatis, MATIAS (test Negative Negative code = 03186-0) Neisseria gonorrhoeae, MATIAS (test Negative Negative code = 36895-1) [facility] Description: 25-hydroxyvitamin D3 [Mass/volume] in Serum or [id number] 06:37:00 Test Item Value Reference Range Interpretation Comments Vitamin D, 16.3 ng/mL 30.0-100.0 L Vitamin D defic iency has 25-Hydroxy (test been define d by the code = 21069-1) [employer] and an Endocrine [facility] practice guidel ine as alevel of serum 25-OH vitamin D less than 20 ng/mL (1,2).The Endocrine Society went on to further define vitamin Dinsufficiency as a level between 21 and 29 ng/mL (2).1. IOM (Ins titute of Medicine). 2010 . Dietary reference intak es for calcium and D. [place]: [employer] .2. Kiana BOONE, Robles [place], Dwain smalls [place], et al. Evaluation, treatment, and prevention of vitamin D de ficiency: an Endocrine [facility] clinical practi ce guideline. JCEM . 2011 Feb; 96(7):1911-30.P erformed by:[facility] ton ([place]) [facility] Description: 25-hydroxyvitamin D3 [Mass/volume] in Serum or [id number] 06:37:00 Test Item Value Reference Range Interpretation Comments Vitamin D, 16.3 ng/mL 30.0-100.0 L Vitamin D defic iency has 25-Hydroxy (test been define d by the code = 62007-6) [facility] as alevel of serum 25-OH vitamin D less than 20 ng/mL (1,2).The Endocrine Society went on to further define vitamin Dinsufficiency as a level between 21 and 29 ng/mL (2).1. IOM (Ins titute of Medicine). 2010 . Dietary reference intak es for calcium and D. [place]: [id number] .2. Robles Epstein, Dwain [place], et al. Evaluation, treatment, and prevention of vitamin D de ficiency: an Endocrine [facility] clinical practi ce guideline. EM . 2010; 96(7):1911-30.P erformed by:[facility] [place] ([place]) [facility] Description: 25-hydroxyvitamin D3 [Mass/volume] in Serum or [id number] 06:37:00 Test Item Value Reference Range Interpretation Comments Vitamin D, 16.3 ng/mL 30.0-100.0 L Vitamin D defic iency has 25-Hydroxy (test been define d by the code = 12823-2) [employer] and an Endocrine [facility] practice guidel ine as alevel of serum 25-OH vitamin D less than 20 ng/mL (1,2).The Endocrine Society went on to further define vitamin Dinsufficiency as a level between 21 and 29 ng/mL (2).1. IOM (Ins titute of Medicine). 2010 . Dietary reference intak es for calcium and D. [place]: [id number] .2. Robles Epstein, Dwain [place], et al. Evaluation, treatment, and prevention of vitamin D de ficiency: an Endocrine [facility] clinical practi ce guideline. JCEM . 2010; 96(7):1911-30.P erformed by:[facility] ([place]) [facility] Description: 25-hydroxyvitamin D3 [Mass/volume] in Serum or [id number] 06:37:00 Test Item Value Reference Range Interpretation Comments Vitamin D, 16.3 ng/mL 30.0-100.0 L Vitamin D defic iency has 25-Hydroxy (test been define d by the code = 08786-5) [employer] and an Endocrine [facility] practice guidel ine as alevel of serum 25-OH vitamin D less than 20 ng/mL (1,2).The Endocrine Society went on to further define vitamin Dinsufficiency as a level between 21 and 29 ng/mL (2).1. IOM (Ins titute of Medicine). 2010 . Dietary reference intak es for calcium and D. [place]: [id number] .2. Robles Epstein, Dwain [place], et al. Evaluation, treatment, and prevention of vitamin D de ficiency: an Endocrine [facility] clinical practi ce guideline. JCEM . 2010; 96(7):1911-30.P erformed by:[facility] ([place]) [facility] Description: 25-hydroxyvitamin D3 [Mass/volume] in Serum or [id number] 06:37:00 Test Item Value Reference Range Interpretation Comments Vitamin D, 16.3 ng/mL 30.0-100.0 L Vitamin D defic iency has 25-Hydroxy (test been define d by the code = 71661-3) [employer] and an Endocrine [facility] practice guidel ine as alevel of serum 25-OH vitamin D less than 20 ng/mL (1,2).The Endocrine Society went on to further define vitamin Dinsufficiency as a level between 21 and 29 ng/mL (2).1. IOM (Ins titute of Medicine). 2010 . Dietary reference intak es for calcium and D. [place]: [id number] .2. Robles Epstein, Dwain [place], et al. Evaluation, treatment, and prevention of vitamin D de ficiency: an Endocrine [facility] clinical practi ce guideline. EM . 2010; 96(7):1911-30.P erformed by:[facility] Roseanna adelso ([place]) [facility] Description: 25-hydroxyvitamin D3 [Mass/volume] in Serum or [id number] 06:37:00 Test Item Value Reference Range Interpretation Comments Vitamin D, 16.3 ng/mL 30.0-100.0 L Vitamin D defic iency has 25-Hydroxy (test been define d by the code = 55946-4) [employer] and an Endocrine [facility] practice guidel ine as alevel of serum 25-OH vitamin D less than 20 ng/mL (1,2).The Endocrine Society went on to further define vitamin Dinsufficiency as a level between 21 and 29 ng/mL (2).1. IOM (Ins titute of Medicine). 2010 . Dietary reference intak es for calcium and D. [place]: [id number] .2. Robles Epstein, Dwain [place], et al. Evaluation, treatment, and prevention of vitamin D de ficiency: an Endocrine [facility] clinical practi ce guideline. EM . 2010; 96(7):1911-30.P erformed by:[facility] darden ([place]) [facility] Description: 25-hydroxyvitamin D3 [Mass/volume] in Serum or [id number] 06:37:00 Test Item Value Reference Range Interpretation Comments Vitamin D, 16.3 ng/mL 30.0-100.0 L Vitamin D defic iency has 25-Hydroxy (test been define d by the code = 67514-7) [employer] and an Endocrine [facility] practice guidel ine as alevel of serum 25-OH vitamin D less than 20 ng/mL (1,2).The Endocrine Society went on to further define vitamin Dinsufficiency as a level between 21 and 29 ng/mL (2).1. IOM (Ins titute of Medicine). 2010 . Dietary reference intak es for calcium and D. [place]: [id number] .2. Robles Epstein, Dwain [place], et al. Evaluation, treatment, and prevention of vitamin D de ficiency: an Endocrine [facility] clinical [facility] ce guideline. EM . 2010; 96(7):1911-30.P erformed by:[facility] darden ([place]) [facility] Description: 25-hydroxyvitamin D3 [Mass/volume] in Serum or [id number] 06:37:00 Test Item Value Reference Range Interpretation Comments Vitamin D, 16.3 ng/mL 30.0-100.0 L Vitamin D defic iency has 25-Hydroxy (test been define d by the code = 06063-3) [employer] and an Endocrine [facility]idel [facility] as alevel of serum 25-OH vitamin D less than 20 ng/mL (1,2).The Endocrine Society went on to further define vitamin Dinsufficiency as a level between 21 and 29 ng/mL (2).1. IOM (Ins titute of Medicine). 2010 . Dietary reference intak es for calcium and D. [place]: [id number] .2. Robles Epstein, Dwain [place], et al. Evaluation, treatment, and prevention of vitamin D de ficiency: an Endocrine [facility] clinical practi ce guideline. EM . 2010; 96(7):1911-30.P erformed by:Deann darden ([place]) [facility] Description: 25-hydroxyvitamin D3 [Mass/volume] in Serum or [id number] 06:37:00 Test Item Value Reference Range Interpretation Comments Vitamin D, 16.3 ng/mL 30.0-100.0 L Vitamin D defic iency has 25-Hydroxy (test been define d by the code = 70901-2) [employer] and an Endocrine [facility] guidel [facility]e as alevel of serum 25-OH vitamin D less than 20 ng/mL (1,2).The Endocrine Society went on to further define vitamin Dinsufficiency as a level between 21 and 29 ng/mL (2).1. IOM (Ins titute of Medicine). 2010 . Dietary reference intak es for calcium and D. [place]: [id number] .2. Robles Epstein, Dwain [place], et al. Evaluation, treatment, and prevention of vitamin D de ficiency: an Endocrine [facility] clinical practi ce guideline. EM . 2010; 96(7):1911-30.P erformed by:[facility] darden ([place]) [facility] Description: 25-hydroxyvitamin D3 [Mass/volume] in Serum or [id number] 06:37:00 Test Item Value Reference Range Interpretation Comments Vitamin D, 16.3 ng/mL 30.0-100.0 L Vitamin D defic iency has 25-Hydroxy (test been define d by the code = 28837-1) [employer] and an Endocrine [facility] practice guidel ine as alevel of serum 25-OH vitamin D less than 20 ng/mL (1,2).The Endocrine Society went on to further define vitamin Dinsufficiency as a level between 21 and 29 ng/mL (2).1. IOM (Ins titute of Medicine). 2010 . Dietary reference intak es for calcium and D. [place]: [id number] .2. Robles Epstein, Dwain [place], et al. Evaluation, treatment, and prevention of vitamin D de ficiency: an Endocrine [facility] clinical practi ce guideline. EM . 2010; 96(7):1911-30.P erformed by:Deann darden ([place]) [facility] Description: 25-hydroxyvitamin D3 [Mass/volume] in Serum or [id number] 06:37:00 Test Item Value Reference Range Interpretation Comments Vitamin D, 16.3 ng/mL 30.0-100.0 L Vitamin D defic iency has 25-Hydroxy (test been define d by the code = 11332-7) [employer] and an Endocrine [facility] practice guidel ine as alevel of serum 25-OH vitamin D less than 20 ng/mL (1,2).The Endocrine Society went on to further define vitamin Dinsufficiency as a level between 21 and 29 ng/mL (2).1. IOM (Ins titute of Medicine). 2010 . Dietary reference intak es for calcium and D. [place]: [id number] .2. Robles Epstein, Dwain [place], et al. Evaluation, treatment, and prevention of vitamin D de ficiency: an Endocrine [facility] clinical practi ce guideline. EM . 2010; 96(7):1911-30.P erformed by:[facility]anna darden ([place]) [facility] Description: 25-hydroxyvitamin D3 [Mass/volume] in Serum or [id number] 06:37:00 Test Item Value Reference Range Interpretation Comments Vitamin D, 16.3 ng/mL 30.0-100.0 L Vitamin D defic iency has 25-Hydroxy (test been define d by the code = 32210-2) [employer] and an Endocrine [facility] guidel [facility]e as alevel of serum 25-OH vitamin D less than 20 ng/mL (1,2).The Endocrine Society went on to further define vitamin Dinsufficiency as a level between 21 and 29 ng/mL (2).1. IOM (Ins titute of Medicine). 2010 . Dietary reference intak es for calcium and D. [place]: [id number] .2. Robles Epstein, Dwain [place], et al. Evaluation, treatment, and prevention of vitamin D de ficiency: an Endocrine [facility] clinical practi ce guideline. EM . 2010; 96(7):1911-30.P erformed by:[facility] d[facility] ([place]) [facility] Description: 25-hydroxyvitamin D3 [Mass/volume] in Serum or [id number] 06:37:00 Test Item Value Reference Range Interpretation Comments Vitamin D, 16.3 ng/mL 30.0-100.0 L Vitamin D defic iency has 25-Hydroxy (test been define d by the code = 99075-6) [employer] and an Endocrine [facility] guidel [facility]e as alevel of serum 25-OH vitamin D less than 20 ng/mL (1,2).The Endocrine Society went on to further define vitamin Dinsufficiency as a level between 21 and 29 ng/mL (2).1. IOM (Ins titute of Medicine). 2010 . Dietary reference intak es for calcium and D. [place]: [id number] .2. Robles Epstein, Dwain [place], et al. Evaluation, treatment, and prevention of vitamin D de ficiency: an Endocrine [facility] clinical practi ce guideline. EM . 2010; 96(7):1911-30.P erformed by:[facility] Roseanna darden ([place]) [facility] Description: 25-hydroxyvitamin D3 [Mass/volume] in Serum or [id number] 06:37:00 Test Item Value Reference Range Interpretation Comments Vitamin D, 16.3 ng/mL 30.0-100.0 L Vitamin D defic iency has 25-Hydroxy (test been define d by the code = 03818-0) [employer] and an Endocrine [facility] guidel [facility]e as alevel of serum 25-OH vitamin D less than 20 ng/mL (1,2).The Endocrine Society went on to further define vitamin Dinsufficiency as a level between 21 and 29 ng/mL (2).1. IOM (Ins titute of Medicine). 2010 . Dietary reference intak es for calcium and D. [place]: [id number] .2. Robles Epstein, Dwain [place], et al. Evaluation, treatment, and prevention of vitamin D de ficiency: an Endocrine [facility] clinical practi ce guideline. EM . 2010; 96(7):1911-30.P erformed by:[facility] ([place]) [facility] Description: 25-hydroxyvitamin D3 [Mass/volume] in Serum or [id number] 06:37:00 Test Item Value Reference Range Interpretation Comments Vitamin D, 16.3 ng/mL 30.0-100.0 L Vitamin D defic iency has 25-Hydroxy (test been define d by the code = 61932-8) [employer] and an Endocrine [facility] guidel [facility]e as alevel of serum 25-OH vitamin D less than 20 ng/mL (1,2).The Endocrine Society went on to further define vitamin Dinsufficiency as a level between 21 and 29 ng/mL (2).1. IOM (Ins titute of Medicine). 2010 . Dietary reference intak es for calcium and D. [place]: [id number] .2. Robles Epstein, Dwain [place], et al. Evaluation, treatment, and prevention of vitamin D de ficiency: an Endocrine [facility] clinical practi ce guideline. JCEM . 2010; 96(7):1911-30.P erformed by:[facility] ([place]) [facility] Description: 25-hydroxyvitamin D3 [Mass/volume] in Serum or [id number] 06:37:00 Test Item Value Reference Range Interpretation Comments Vitamin D, 16.3 ng/mL 30.0-100.0 L Vitamin D defic iency has 25-Hydroxy (test been define d by the code = 00528-0) [employer] and an Endocrine [facility] guidel ine as alevel of serum 25-OH vitamin D less than 20 ng/mL (1,2).The Endocrine Society went on to further define vitamin Dinsufficiency as a level between 21 and 29 ng/mL (2).1. IOM (Ins titute of Medicine). 2010 . Dietary reference intak es for calcium and D. [place]: [id number] .2. Robles Epstein, Dwain [place], et al. Evaluation, treatment, and prevention of vitamin D de ficiency: an Endocrine [facility] clinical practi ce guideline. JCEM . 2010; 96(7):1911-30.P erformed by:[facility] ([place]) [facility] Description: 25-hydroxyvitamin D3 [Mass/volume] in Serum or [id number] 06:37:00 Test Item Value Reference Range Interpretation Comments Vitamin D, 16.3 ng/mL 30.0-100.0 L Vitamin D defic iency has 25-Hydroxy (test been define d by the code = 11492-7) [employer] and an Endocrine [facility] guidel ine as alevel of serum 25-OH vitamin D less than 20 ng/mL (1,2).The Endocrine Society went on to further define vitamin Dinsufficiency as a level between 21 and 29 ng/mL (2).1. IOM (Ins titute of Medicine). 2010 . Dietary reference intak es for calcium and D. [place]: [id number] .2. Robles Epstein, Dwain CUNNING[place]AM et al. Evaluation, treatment, and prevention of vitamin D de ficiency: an Endocrine [facility] clinical practi ce guideline. EM . 2010; 96(7):191-30.P erformed by:[facility] ([place]) [facility] Description: 25-hydroxyvitamin D3 [Mass/volume] in Serum or [id number] 06:37:00 Test Item Value Reference Range Interpretation Comments Vitamin D, 16.3 ng/mL 30.0-100.0 L Vitamin D defic iency has 25-Hydroxy (test been define d by the code = 25623-2) [employer] and an Endocrine [facility] practice guidel ine as alevel of serum 25-OH vitamin D less than 20 ng/mL (1,2).The Endocrine Society went on to further define vitamin Dinsufficiency as a level between 21 and 29 ng/mL (2).1. IOM (Ins titute of Medicine). 2010 . Dietary reference intak es for calcium and D. [facility]: [facility] [employer] [facility] [employer] .2. Robles Epstein, Dwain [place], et al. Evaluation, treatment, and prevention of vitamin D de ficiency: an Endocrine [facility] clinical practi ce guideline. EM . 2010; 96(7):1911-30.P erformed by:[facility] ([place]) [facility] Description: 25-hydroxyvitamin D3 [Mass/volume] in Serum or [id number] 06:37:00 Test Item Value Reference Range Interpretation Comments Vitamin D, 16.3 ng/mL 30.0-100.0 L Vitamin D defic iency has 25-Hydroxy (test been define d by the code = 35158-0) [employer] and an Endocrine [facility] guidel ine as alevel of serum 25-OH vitamin D less than 20 ng/mL (1,2).The Endocrine Society went on to further define vitamin Dinsufficiency as a level between 21 and 29 ng/mL (2).1. IOM (Ins titute of Medicine). 2010 . Dietary reference intak es for calcium and D. [facility]: [employer] [address] [employer] .2. Holick MF, RoblesDwain Cabrera i, et al. Evaluation, treatment, and prevention of vitamin D de ficiency: an Endocrine [facility] clinical practi ce guideline. EM . 2010; 96(7):191-.P erformed by:[facility] ([place]) [facility] Description: 25-hydroxyvitamin D3 [Mass/volume] in Serum or [id number] 06:37:00 Test Item Value Reference Range Interpretation Comments Vitamin D, 16.3 ng/mL 30.0-100.0 L Vitamin D defic iency has 25-Hydroxy (test been define d by the code = 48606-4) [employer] and an Endocrine [facility] guidel ine as alevel of serum 25-OH vitamin D less than 20 ng/mL (1,2).The Endocrine Society went on to further define vitamin Dinsufficiency as a level between 21 and 29 ng/mL (2).1. IOM (Ins titute of Medicine). 2010 . Dietary reference intak es for calcium and D. [place]: [id number] .2. Robles Epstein, Dwain CUNN[place], et al. Evaluation, treatment, and prevention of vitamin D de ficiency: an Endocrine [facility] clinical practi ce guideline. EM . 2010; 96(7):1911-30.P erformed by:[facility] ([place]) [facility] Description: 25-hydroxyvitamin D3 [Mass/volume] in Serum or [id number] 06:37:00 Test Item Value Reference Range Interpretation Comments Vitamin D, 16.3 ng/mL 30.0-100.0 L Vitamin D defic iency has 25-Hydroxy (test been define d by the code = 75774-3) [employer] and an Endocrine [facility] guidel ine as alevel of serum 25-OH vitamin D less than 20 ng/mL (1,2).The Endocrine Society went on to further define vitamin Dinsufficiency as a level between 21 and 29 ng/mL (2).1. IOM (Ins titute of Medicine). 2010 . Dietary reference intak es for calcium and D. [place]: [id number] .2. Robles Epstein, Dwain CUNN[place], et al. Evaluation, treatment, and prevention of vitamin D de ficiency: an Endocrine [facility] clinical practi ce guideline. EM . 2010; 96(7):1911-30.P erformed by:[facility] d[facility] ([place]) [facility] Description: 25-hydroxyvitamin D3 [Mass/volume] in Serum or [id number] 06:37:00 Test Item Value Reference Range Interpretation Comments Vitamin D, 16.3 ng/mL 30.0-100.0 L Vitamin D defic iency has 25-Hydroxy (test been define d by the code = 98686-3) [employer] and an Endocrine [facility] practice guidel ine as alevel of serum 25-OH vitamin D less than 20 ng/mL (1,2).The Endocrine Society went on to further define vitamin Dinsufficiency as a level between 21 and 29 ng/mL (2).1. IOM (Ins titute of Medicine). 2010 . Dietary reference intak es for calcium and D. [place]: [employer] .2. Kiana BOONE, Robles PISANO, Dwain CUNN[place], et al. Evaluation, treatment, and prevention of vitamin D de ficiency: an Endocrine [facility] clinical practi ce guideline. EM . 2010; 96(7):1911-30.P erformed by:[facility] darden ([place]) [facility] Description: HIV 1+2 Ab+HIV1 p24 Ag [Presence] in Serum or Plasma by [id number] 06:08:00 Test Item Value Reference Range Interpretation Comments HIV Ab/p24 Ag Non Reactive Non Reactive HIV Screen (test code = Negative HIV-1/HIV-2 47725-8) antibodies and HIV-1 p24 antigen wer e NOT detected.There is no laboratory evid ence of HIV infection.Perfo rmed by:[facility] d[facility] ([place]) [facility] Description: HIV 1+2 Ab+HIV1 p24 Ag [Presence] in Serum or Plasma by Fbtqmdsqgle0844-01-21 06:08:00 Test Item Value Reference Range Interpretation Comments HIV Ab/p24 Ag Non Reactive Non Reactive HIV Screen (test code = Negative HIV-1/HIV-2 67800-7) antibodies and HIV-1 p24 antigen wer e NOT detected.There is no laboratory evid ence of HIV infection.Perfo rmed by:[facility]anna darden ([place]) [facility] Description: HIV 1+2 Ab+HIV1 p24 Ag [Presence] in Serum or Plasma by [id number] 06:08:00 Test Item Value Reference Range Interpretation Comments HIV Ab/p24 Ag Non Reactive Non Reactive HIV Screen (test code = Negative HIV-1/HIV-2 94315-9) antibodies and HIV-1 p24 antigen wer e NOT detected.There is no laboratory evid ence of HIV infection.Perfo rmed by:[facility] Roseanna darden ([place]) [facility] Description: HIV 1+2 Ab+HIV1 p24 Ag [Presence] in Serum or Plasma by Lkknjzjvnyt8910-11-71 06:08:00 Test Item Value Reference Range Interpretation Comments HIV Ab/p24 Ag Non Reactive Non Reactive HIV Screen (test code = Negative HIV-1/HIV-2 37156-9) antibodies and HIV-1 p24 antigen wer e NOT detected.There is no laboratory evid ence of HIV infection.Perfo rmed by:[facility] Roseanna darden ([place]) [facility] Description: HIV 1+2 Ab+HIV1 p24 Ag [Presence] in Serum or Plasma by Laimbuzmdzh8155-23-69 06:08:00 Test Item Value Reference Range Interpretation Comments HIV Ab/p24 Ag Non Reactive Non Reactive HIV Screen (test code = Negative HIV-1/HIV-2 23481-2) antibodies and HIV-1 p24 antigen wer e NOT detected.There is no laboratory evid ence of HIV infection.Perfo rmed by:[facility] Rose[facility] darden ([place]) [facility] Description: HIV 1+2 Ab+HIV1 p24 Ag [Presence] in Serum or Plasma by Sjaplryydyb3149-51-97 06:08:00 Test Item Value Reference Range Interpretation Comments HIV Ab/p24 Ag Non Reactive Non Reactive HIV Screen (test code = Negative HIV-1/HIV-2 11491-0) antibodies and HIV-1 p24 antigen wer e NOT detected.There is no laboratory evid ence of HIV infection.Perfo rmed by:[facility] darden ([place]) [facility] Description: HIV 1+2 Ab+HIV1 p24 Ag [Presence] in Serum or Plasma by [id number] 06:08:00 Test Item Value Reference Range Interpretation Comments HIV Ab/p24 Ag Non Reactive Non Reactive HIV Screen (test code = Negative HIV-1/HIV-2 76243-6) antibodies and HIV-1 p24 antigen wer e NOT detected.There is no laboratory evid ence of HIV infection.Perfo rmed by:[facility] Roseanna adelso ([place]) [facility] Description: HIV 1+2 Ab+HIV1 p24 Ag [Presence] in Serum or Plasma by Ivtgmhbzapq1343-01-20 06:08:00 Test Item Value Reference Range Interpretation Comments HIV Ab/p24 Ag Non Reactive Non Reactive HIV Screen (test code = Negative HIV-1/HIV-2 77190-8) antibodies and HIV-1 p24 antigen wer e NOT detected.There is no laboratory evid ence of HIV infection.Perfo rmed by:Loffles Roseanna adelso ([place]) [facility] Description: HIV 1+2 Ab+HIV1 p24 Ag [Presence] in Serum or Plasma by Vmnrwzvsijr4537-75-24 06:08:00 Test Item Value Reference Range Interpretation Comments HIV Ab/p24 Ag Non Reactive Non Reactive HIV Screen (test code = Negative HIV-1/HIV-2 73186-3) antibodies and HIV-1 p24 antigen wer e NOT detected.There is no laboratory evid ence of HIV infection.Perfo rmed by:Loffles Roseanna darden ([place]) [facility] Description: HIV 1+2 Ab+HIV1 p24 Ag [Presence] in Serum or Plasma by Rwzcmnnqoln3914-15-29 06:08:00 Test Item Value Reference Range Interpretation Comments HIV Ab/p24 Ag Non Reactive Non Reactive HIV Screen (test code = Negative HIV-1/HIV-2 91957-6) antibodies and HIV-1 p24 antigen wer e NOT detected.There is no laboratory evid ence of HIV infection.Perfo rmed by:Loffles Roseanna darden ([place]) [facility] Description: HIV 1+2 Ab+HIV1 p24 Ag [Presence] in Serum or Plasma by Njrvbvneojw4285-78-23 06:08:00 Test Item Value Reference Range Interpretation Comments HIV Ab/p24 Ag Non Reactive Non Reactive HIV Screen (test code = Negative HIV-1/HIV-2 16094-0) antibodies and HIV-1 p24 antigen wer e NOT detected.There is no laboratory evid ence of HIV infection.Perfo rmed by:[employer] adelso ([place]) [facility] Description: HIV 1+2 Ab+HIV1 p24 Ag [Presence] in Serum or Plasma by Txuslgzaxta4645-28-14 06:08:00 Test Item Value Reference Range Interpretation Comments HIV Ab/p24 Ag Non Reactive Non Reactive HIV Screen (test code = Negative HIV-1/HIV-2 84386-5) antibodies and HIV-1 p24 antigen wer e NOT detected.There is no laboratory evid ence of HIV infection.Perfo rmed by:[employer] Roseanna darden ([place]) [facility] Description: HIV 1+2 Ab+HIV1 p24 Ag [Presence] in Serum or Plasma by Vynuveqrebr3258-77-31 06:08:00 Test Item Value Reference Range Interpretation Comments HIV Ab/p24 Ag Non Reactive Non Reactive HIV Screen (test code = Negative HIV-1/HIV-2 71188-8) antibodies and HIV-1 p24 antigen wer e NOT detected.There is no laboratory evid ence of HIV infection.Perfo rmed by:[employer] Roseanna darden ([place]) [facility] Description: HIV 1+2 Ab+HIV1 p24 Ag [Presence] in Serum or Plasma by Kwpolhfpfgv9687-67-57 06:08:00 Test Item Value Reference Range Interpretation Comments HIV Ab/p24 Ag Non Reactive Non Reactive HIV Screen (test code = Negative HIV-1/HIV-2 50719-1) antibodies and HIV-1 p24 antigen wer e NOT detected.There is no laboratory evid ence of HIV infection.Perfo rmed by:[facility] [employer] Roseanna darden ([place]) [facility] Description: HIV 1+2 Ab+HIV1 p24 Ag [Presence] in Serum or Plasma by Jgmwtgadwbb6704-62-24 06:08:00 Test Item Value Reference Range Interpretation Comments HIV Ab/p24 Ag Non Reactive Non Reactive HIV Screen (test code = Negative HIV-1/HIV-2 42516-9) antibodies and HIV-1 p24 antigen wer e NOT detected.There is no laboratory evid ence of HIV infection.Perfo rmed by:[facility] [employer] Roseanna darden ([place]) [facility] Description: HIV 1+2 Ab+HIV1 p24 Ag [Presence] in Serum or Plasma by Acpwmdcywsi7277-24-28 06:08:00 Test Item Value Reference Range Interpretation Comments HIV Ab/p24 Ag Non Reactive Non Reactive HIV Screen (test code = Negative HIV-1/HIV-2 22336-7) antibodies and HIV-1 p24 antigen wer e NOT detected.There is no laboratory evid ence of HIV infection.Perfo rmed by:[facility] [employer] Roseanna darden ([place]) [facility] Description: HIV 1+2 Ab+HIV1 p24 Ag [Presence] in Serum or Plasma by Vjsvauunssq2191-90-61 06:08:00 Test Item Value Reference Range Interpretation Comments HIV Ab/p24 Ag Non Reactive Non Reactive HIV Screen (test code = Negative HIV-1/HIV-2 93895-6) antibodies and HIV-1 p24 antigen wer e NOT detected.There is no laboratory evid ence of HIV infection.Perfo rmed by:[facility] [employer] Roseanna ton ([place]) [facility] Description: HIV 1+2 Ab+HIV1 p24 Ag [Presence] in Serum or Plasma by Wtfiuxthbbl6257-50-77 06:08:00 Test Item Value Reference Range Interpretation Comments HIV Ab/p24 Ag Non Reactive Non Reactive HIV Screen (test code = Negative HIV-1/HIV-2 92297-6) antibodies and HIV-1 p24 antigen wer e NOT detected.There is no laboratory evid ence of HIV infection.Perfo rmed by:[facility] [employer] Roseanna darden ([place]) [facility] Description: HIV 1+2 Ab+HIV1 p24 Ag [Presence] in Serum or Plasma by Lsbrgczvqle7936-43-51 06:08:00 Test Item Value Reference Range Interpretation Comments HIV Ab/p24 Ag Non Reactive Non Reactive HIV Screen (test code = Negative HIV-1/HIV-2 31149-7) antibodies and HIV-1 p24 antigen wer e NOT detected.There is no laboratory evid ence of HIV infection.Perfo rmed by:[facility] [employer] Roseanna darden ([place]) [facility] Description: HIV 1+2 Ab+HIV1 p24 Ag [Presence] in Serum or Plasma by Azbjjglslkw8469-30-59 06:08:00 Test Item Value Reference Range Interpretation Comments HIV Ab/p24 Ag Non Reactive Non Reactive HIV Screen (test code = Negative HIV-1/HIV-2 00975-5) antibodies and HIV-1 p24 antigen wer e NOT detected.There is no laboratory evid ence of HIV infection.Perfo rmed by:[facility] [email or web address] ton ([place]) [facility] Description: HIV 1+2 Ab+HIV1 p24 Ag [Presence] in Serum or Plasma by Hoyyrxgaadl8750-96-77 06:08:00 Test Item Value Reference Range Interpretation Comments HIV Ab/p24 Ag Non Reactive Non Reactive HIV Screen (test code = Negative HIV-1/HIV-2 07096-6) antibodies and HIV-1 p24 antigen wer e NOT detected.There is no laboratory evid ence of HIV infection.Perfo rmed by:[facility] [employer] [email or web address] ton ([place]) [facility] Description: HIV 1+2 Ab+HIV1 p24 Ag [Presence] in Serum or Plasma by Yczkbvfclcj4128-88-77 06:08:00 Test Item Value Reference Range Interpretation Comments HIV Ab/p24 Ag Non Reactive Non Reactive HIV Screen (test code = Negative HIV-1/HIV-2 35724-4) antibodies and HIV-1 p24 antigen wer e NOT detected.There is no laboratory evid ence of HIV infection.Perfo rmed by:[employer] ton ([place]) [facility] Description: Acute Imuaftmvq5071-72-95 06:07:00 Test Item Value Reference Range Interpretation Comments Hep A Ab, IgM (test code = 25123-1) Negative Negative HBsAg Screen (test code = 5196-1) Negative Negative Hep B Core Ab, IgM (test code = Negative Negative 82870-0) HCV Ab (test code = 68668-3) <0.1 0.0-0.9 [facility] Description: Interpretation:2022-09-04 06:07:00 Test Item Value Reference Range Interpretation Comments Interpretation: Comment NegativeNot infected with (test code = HCV, unless rec ent 38973-8) infection is alexandra spected or otherevidence e xists to indicate HCV infection.Perfo rmed by:[facility] [email or web address] ton ([place]) [facility] Description: Acute Gsjyltrmz7090-11-92 06:07:00 Test Item Value Reference Range Interpretation Comments Hep A Ab, IgM (test code = 71180-9) Negative Negative HBsAg Screen (test code = 5196-1) Negative Negative Hep B Core Ab, IgM (test code = Negative Negative 80227-9) HCV Ab (test code = 88247-0) <0.1 0.0-0.9 [facility] Description: Interpretation:2022-09-04 06:07:00 Test Item Value Reference Range Interpretation Comments Interpretation: Comment NegativeNot infected with (test code = HCV, unless rec ent 93081-7) infection is alexandra spected or otherevidence e xists to indicate HCV infection.Perfo rmed by:Deann darden (HD) [facility] Description: Acute Uckxuniwg2328-88-99 06:07:00 Test Item Value Reference Range Interpretation Comments Hep A Ab, IgM (test code = 46318-7) Negative Negative HBsAg Screen (test code = 5196-1) Negative Negative Hep B Core Ab, IgM (test code = Negative Negative 67250-5) HCV Ab (test code = 73180-7) <0.1 0.0-0.9 [facility] Description: Interpretation:2022-09-04 06:07:00 Test Item Value Reference Range Interpretation Comments Interpretation: Comment NegativeNot infected with (test code = HCV, unless rec ent 89516-9) infection is alexandra spected or otherevidence e xists to indicate HCV infection.Perfo rmed by:Deann darden (HD) [facility] Description: Acute Mbuccprbi8440-77-54 06:07:00 Test Item Value Reference Range Interpretation Comments Hep A Ab, IgM (test code = 06559-0) Negative Negative HBsAg Screen (test code = 5196-1) Negative Negative Hep B Core Ab, IgM (test code = Negative Negative 93829-3) HCV Ab (test code = 44835-1) <0.1 0.0-0.9 [facility] Description: Interpretation:2022-09-04 06:07:00 Test Item Value Reference Range Interpretation Comments Interpretation: Comment NegativeNot infected with (test code = HCV, unless rec ent 10452-1) infection is alexandra spected or otherevidence e xists to indicate HCV infection.Perfo rmed by:Deann darden (HD) [facility] Description: Acute Mcyfbfoah2901-24-79 06:07:00 Test Item Value Reference Range Interpretation Comments Hep A Ab, IgM (test code = 08325-3) Negative Negative HBsAg Screen (test code = 5196-1) Negative Negative Hep B Core Ab, IgM (test code = Negative Negative 31415-6) HCV Ab (test code = 87088-8) <0.1 0.0-0.9 [facility] Description: Interpretation:2022-09-04 06:07:00 Test Item Value Reference Range Interpretation Comments Interpretation: Comment NegativeNot infected with (test code = HCV, unless rec ent 05148-0) infection is alexandra spected or otherevidence e xists to indicate HCV infection.Perfo rmed by:Deann darden (HD) [facility] Description: Acute Ltsgwoxtw4450-04-41 06:07:00 Test Item Value Reference Range Interpretation Comments Hep A Ab, IgM (test code = 58324-4) Negative Negative HBsAg Screen (test code = 5196-1) Negative Negative Hep B Core Ab, IgM (test code = Negative Negative 79295-8) HCV Ab (test code = 35690-0) <0.1 0.0-0.9 [facility] Description: Interpretation:2022-09-04 06:07:00 Test Item Value Reference Range Interpretation Comments Interpretation: Comment NegativeNot infected with (test code = HCV, unless rec ent 72058-5) infection is alexandra spected or otherevidence e xists to indicate HCV infection.Perfo rmed by:Deann darden (HD) [facility] Description: Acute Zrujcdevt0163-28-51 06:07:00 Test Item Value Reference Range Interpretation Comments Hep A Ab, IgM (test code = 25979-6) Negative Negative HBsAg Screen (test code = 5196-1) Negative Negative Hep B Core Ab, IgM (test code = Negative Negative 42669-0) HCV Ab (test code = 72931-9) <0.1 0.0-0.9 [facility] Description: Interpretation:2022-09-04 06:07:00 Test Item Value Reference Range Interpretation Comments Interpretation: Comment NegativeNot infected with (test code = HCV, unless rec ent 43050-5) infection is alexandra spected or otherevidence e xists to indicate HCV infection.Perfo rmed by:Deann dadren (HD) [facility] Description: Acute Yufzudfwj9101-88-52 06:07:00 Test Item Value Reference Range Interpretation Comments Hep A Ab, IgM (test code = 55017-9) Negative Negative HBsAg Screen (test code = 5196-1) Negative Negative Hep B Core Ab, IgM (test code = Negative Negative 58679-8) HCV Ab (test code = 27207-4) <0.1 0.0-0.9 [facility] Description: Interpretation:2022-09-04 06:07:00 Test Item Value Reference Range Interpretation Comments Interpretation: Comment NegativeNot infected with (test code = HCV, unless rec ent 08994-6) infection is alexandra spected or otherevidence e xists to indicate HCV infection.Perfo rmed by:Deann darden (HD) [facility] Description: Acute Fokdwilca2117-47-48 06:07:00 Test Item Value Reference Range Interpretation Comments Hep A Ab, IgM (test code = 99847-4) Negative Negative HBsAg Screen (test code = 5196-1) Negative Negative Hep B Core Ab, IgM (test code = Negative Negative 81858-3) HCV Ab (test code = 53370-8) <0.1 0.0-0.9 [facility] Description: Interpretation:2022-09-04 06:07:00 Test Item Value Reference Range Interpretation Comments Interpretation: Comment NegativeNot infected with (test code = HCV, unless rec ent 44374-6) infection is alexandra spected or otherevidence e xists to indicate HCV infection.Perfo rmed by:Deann darden (HD) [facility] Description: Acute Eymfzcrum8919-29-13 06:07:00 Test Item Value Reference Range Interpretation Comments Hep A Ab, IgM (test code = 55616-7) Negative Negative HBsAg Screen (test code = 5196-1) Negative Negative Hep B Core Ab, IgM (test code = Negative Negative 47506-2) HCV Ab (test code = 66096-9) <0.1 0.0-0.9 [facility] Description: Interpretation:2022-09-04 06:07:00 Test Item Value Reference Range Interpretation Comments Interpretation: Comment NegativeNot infected with (test code = HCV, unless rec ent 73559-2) infection is alexandra spected or otherevidence e xists to indicate HCV infection.Perfo rmed by:Deann darden (HD) [facility] Description: Acute Mpsyvnuvn5829-77-75 06:07:00 Test Item Value Reference Range Interpretation Comments Hep A Ab, IgM (test code = 88677-0) Negative Negative HBsAg Screen (test code = 5196-1) Negative Negative Hep B Core Ab, IgM (test code = Negative Negative 50115-4) HCV Ab (test code = 71641-9) <0.1 0.0-0.9 [facility] Description: Interpretation:2022-09-04 06:07:00 Test Item Value Reference Range Interpretation Comments Interpretation: Comment NegativeNot infected with (test code = HCV, unless rec ent 28820-7) infection is alexandra spected or otherevidence e xists to indicate HCV infection.Perfo rmed by:[facility] Roseanna ton ([place]) [facility] Description: Acute Kxsaibbpp2855-57-33 06:07:00 Test Item Value Reference Range Interpretation Comments Hep A Ab, IgM (test code = 71912-1) Negative Negative HBsAg Screen (test code = 5196-1) Negative Negative Hep B Core Ab, IgM (test code = Negative Negative 59766-7) HCV Ab (test code = 18607-7) <0.1 0.0-0.9 [facility] Description: Interpretation:2022-09-04 06:07:00 Test Item Value Reference Range Interpretation Comments Interpretation: Comment NegativeNot infected with (test code = HCV, unless rec ent 89891-3) infection is alexandra spected or otherevidence e xists to indicate HCV infection.Perfo rmed by:[facility] Roseanna ton ([place]) [facility] Description: Acute Rsuopdcgo4426-18-37 06:07:00 Test Item Value Reference Range Interpretation Comments Hep A Ab, IgM (test code = 14756-1) Negative Negative HBsAg Screen (test code = 5196-1) Negative Negative Hep B Core Ab, IgM (test code = Negative Negative 30494-3) HCV Ab (test code = 58697-2) <0.1 0.0-0.9 [facility] Description: Interpretation:2022-09-04 06:07:00 Test Item Value Reference Range Interpretation Comments Interpretation: Comment NegativeNot infected with (test code = HCV, unless rec ent 16470-3) infection is alexandra spected or otherevidence e xists to indicate HCV infection.Perfo rmed by:[facility] Roseanna ton ([place]) [facility] Description: Acute Keurasnky3894-40-17 06:07:00 Test Item Value Reference Range Interpretation Comments Hep A Ab, IgM (test code = 45142-5) Negative Negative HBsAg Screen (test code = 5196-1) Negative Negative Hep B Core Ab, IgM (test code = Negative Negative 42077-0) HCV Ab (test code = 31131-9) <0.1 0.0-0.9 [facility] Description: Interpretation:2022-09-04 06:07:00 Test Item Value Reference Range Interpretation Comments Interpretation: Comment NegativeNot infected with (test code = HCV, unless rec ent 69105-1) infection is alexandra spected or otherevidence e xists to indicate HCV infection.Perfo rmed by:Deann darden (HD) [facility] Description: Acute Jethugazr0255-62-60 06:07:00 Test Item Value Reference Range Interpretation Comments Hep A Ab, IgM (test code = 16268-9) Negative Negative HBsAg Screen (test code = 5196-1) Negative Negative Hep B Core Ab, IgM (test code = Negative Negative 81484-2) HCV Ab (test code = 53533-4) <0.1 0.0-0.9 [facility] Description: Interpretation:2022-09-04 06:07:00 Test Item Value Reference Range Interpretation Comments Interpretation: Comment NegativeNot infected with (test code = HCV, unless rec ent 66037-2) infection is alexandra spected or otherevidence e xists to indicate HCV infection.Perfo rmed by:Deann darden (HD) [facility] Description: Acute Vwddumjxo9885-13-85 06:07:00 Test Item Value Reference Range Interpretation Comments Hep A Ab, IgM (test code = 62473-0) Negative Negative HBsAg Screen (test code = 5196-1) Negative Negative Hep B Core Ab, IgM (test code = Negative Negative 59579-8) HCV Ab (test code = 96441-0) <0.1 0.0-0.9 [facility] Description: Interpretation:2022-09-04 06:07:00 Test Item Value Reference Range Interpretation Comments Interpretation: Comment NegativeNot infected with (test code = HCV, unless rec ent 95070-6) infection is alexandra spected or otherevidence e xists to indicate HCV infection.Perfo rmed by:[facility] ([place]) [facility] Description: Acute Gkxsdqqix3102-32-87 06:07:00 Test Item Value Reference Range Interpretation Comments Hep A Ab, IgM (test code = 23258-1) Negative Negative HBsAg Screen (test code = 5196-1) Negative Negative Hep B Core Ab, IgM (test code = Negative Negative 55232-5) HCV Ab (test code = 79900-2) <0.1 0.0-0.9 [facility] Description: Interpretation:2022-09-04 06:07:00 Test Item Value Reference Range Interpretation Comments Interpretation: Comment NegativeNot infected with (test code = HCV, unless rec ent 59942-8) infection is alexandra spected or otherevidence e xists to indicate HCV infection.Perfo rmed by:Deann darden ([place]) [facility] Description: Acute Wviczzggr1618-23-00 06:07:00 Test Item Value Reference Range Interpretation Comments Hep A Ab, IgM (test code = 54476-6) Negative Negative HBsAg Screen (test code = 5196-1) Negative Negative Hep B Core Ab, IgM (test code = Negative Negative 44359-2) HCV Ab (test code = 07623-5) <0.1 0.0-0.9 [facility] Description: Interpretation:2022-09-04 06:07:00 Test Item Value Reference Range Interpretation Comments Interpretation: Comment NegativeNot infected with (test code = HCV, unless rec ent 65244-0) infection is alexandra spected or otherevidence e xists to indicate HCV infection.Perfo rmed by:Deann darden (HD) [facility] Description: Acute Qmcvgviwh7789-85-88 06:07:00 Test Item Value Reference Range Interpretation Comments Hep A Ab, IgM (test code = 46425-8) Negative Negative HBsAg Screen (test code = 5196-1) Negative Negative Hep B Core Ab, IgM (test code = Negative Negative 34056-4) HCV Ab (test code = 05295-7) <0.1 0.0-0.9 [facility] Description: Interpretation:2022-09-04 06:07:00 Test Item Value Reference Range Interpretation Comments Interpretation: Comment NegativeNot infected with (test code = HCV, unless rec ent 53722-0) infection is alexandra spected or otherevidence e xists to indicate HCV infection.Perfo rmed by:Deann darden (HD) [facility] Description: Acute Waxvevcvb2974-26-93 06:07:00 Test Item Value Reference Range Interpretation Comments Hep A Ab, IgM (test code = 34940-3) Negative Negative HBsAg Screen (test code = 5196-1) Negative Negative Hep B Core Ab, IgM (test code = Negative Negative 31334-5) HCV Ab (test code = 43079-0) <0.1 0.0-0.9 [facility] Description: Interpretation:2022-09-04 06:07:00 Test Item Value Reference Range Interpretation Comments Interpretation: Comment NegativeNot infected with (test code = HCV, unless rec ent 55841-8) infection is alexandra spected or otherevidence e xists to indicate HCV infection.Perfo rmed by:[facility] Roseanna darden ([place]) [facility] Description: Acute Dlhsawflw6262-46-54 06:07:00 Test Item Value Reference Range Interpretation Comments Hep A Ab, IgM (test code = 73369-5) Negative Negative HBsAg Screen (test code = 5196-1) Negative Negative Hep B Core Ab, IgM (test code = Negative Negative 43069-1) HCV Ab (test code = 25588-1) <0.1 0.0-0.9 [facility] Description: Interpretation:2022-09-04 06:07:00 Test Item Value Reference Range Interpretation Comments Interpretation: Comment NegativeNot infected with (test code = HCV, unless rec ent 73410-4) infection is alexandra spected or otherevidence e xists to indicate HCV infection.Perfo rmed by:[facility] ([place]) [facility] Description: Acute Ahxnpwasy0639-75-41 06:07:00 Test Item Value Reference Range Interpretation Comments Hep A Ab, IgM (test code = 52027-3) Negative Negative HBsAg Screen (test code = 5196-1) Negative Negative Hep B Core Ab, IgM (test code = Negative Negative 30220-4) HCV Ab (test code = 73118-8) <0.1 0.0-0.9 [facility] Description: Interpretation:2022-09-04 06:07:00 Test Item Value Reference Range Interpretation Comments Interpretation: Comment NegativeNot infected with (test code = HCV, unless rec ent 56640-2) infection is alexandra spected or otherevidence e xists to indicate HCV infection.Perfo rmed by:[facility] Roseanna ton ([place]) [facility] Description: Urine Culture, Zahwszf7482-02-20 03:46:00 Test Item Value Reference Range Interpretation Comments Result 1 (test code Comment Mixed ur ogenital = 630-4) floraGreater th an 100,000 colony forming units per mLPerformed by: [facility] [place] () [facility] Description: Urine Culture, Zcyhmbj8827-80-75 03:46:00 Test Item Value Reference Range Interpretation Comments Result 1 (test code Comment Mixed ur ogenital = 630-4) floraGreater th an 100,000 colony forming units per mLPerformed by: [facility] Description: Urine Culture, Pzdgwep2592-08-20 03:46:00 Test Item Value Reference Range Interpretation Comments Result 1 (test code Comment Mixed ur ogenital = 630-4) floraGreater th an 100,000 colony forming units per mLPerformed by: [facility] () [facility] Description: Urine Culture, Cerjdzx5270-40-40 03:46:00 Test Item Value Reference Range Interpretation Comments Result 1 (test code Comment Mixed ur ogenital = 630-4) floraGreater th an 100,000 colony forming units per mLPerformed by: [facility] () [facility] Description: Urine Culture, Bimwqjj4313-12-79 03:46:00 Test Item Value Reference Range Interpretation Comments Result 1 (test code Comment Mixed ur ogenital = 630-4) floraGreater th an 100,000 colony forming units per mLPerformed by: [facility] () [facility] Description: Urine Culture, Uhftljo9644-58-09 03:46:00 Test Item Value Reference Range Interpretation Comments Result 1 (test code Comment Mixed ur ogenital = 630-4) floraGreater th an 100,000 colony forming units per mLPerformed by: [facility] () [facility] Description: Urine Culture, Ptrikdh2219-67-99 03:46:00 Test Item Value Reference Range Interpretation Comments Result 1 (test code Comment Mixed ur ogenital = 630-4) floraGreater th an 100,000 colony forming units per mLPerformed by: [facility] () [facility] Description: Urine Culture, Apigldq8884-56-41 03:46:00 Test Item Value Reference Range Interpretation Comments Result 1 (test code Comment Mixed ur ogenital = 630-4) floraGreater th an 100,000 colony forming units per mLPerformed by: [facility] () [facility] Description: Urine Culture, Wfjulax6981-11-99 03:46:00 Test Item Value Reference Range Interpretation Comments Result 1 (test code Comment Mixed ur ogenital = 630-4) floraGreater th an 100,000 colony forming units per mLPerformed by: [facility] () [facility] Description: Urine Culture, Lexlpgs2195-18-47 03:46:00 Test Item Value Reference Range Interpretation Comments Result 1 (test code Comment Mixed ur ogenital = 630-4) floraGreater th an 100,000 colony forming units per mLPerformed by: [facility] () [facility] Description: Urine Culture, Piqsbxm1789-68-59 03:46:00 Test Item Value Reference Range Interpretation Comments Result 1 (test code Comment Mixed ur ogenital = 630-4) floraGreater th an 100,000 colony forming units per mLPerformed by: [facility] () [facility] Description: Urine Culture, Nynvuer6896-40-33 03:46:00 Test Item Value Reference Range Interpretation Comments Result 1 (test code Comment Mixed ur ogenital = 630-4) floraGreater th an 100,000 colony forming units per mLPerformed by: [facility] () [facility] Description: Urine Culture, Ppepuug2024-82-34 03:46:00 Test Item Value Reference Range Interpretation Comments Result 1 (test code Comment Mixed ur ogenital = 630-4) floraGreater th an 100,000 colony forming units per mLPerformed by: [facility] () [facility] Description: Urine Culture, [id number] 03:46:00 Test Item Value Reference Range Interpretation Comments Result 1 (test code Comment Mixed ur ogenital = 630-4) floraGreater th an 100,000 colony forming units per mLPerformed by: [facility] () [facility] Description: Urine Culture, [id number] 03:46:00 Test Item Value Reference Range Interpretation Comments Result 1 (test code Comment Mixed ur ogenital = 630-4) floraGreater th an 100,000 colony forming units per mLPerformed by: [facility] () [facility] Description: Urine Culture, [id number] 03:46:00 Test Item Value Reference Range Interpretation Comments Result 1 (test code Comment Mixed ur ogenital = 630-4) floraGreater th an 100,000 colony forming units per mLPerformed by: [facility] () [facility] Description: Urine Culture, [id number] 03:46:00 Test Item Value Reference Range Interpretation Comments Result 1 (test code Comment Mixed ur ogenital = 630-4) floraGreater th an 100,000 colony forming units per mLPerformed by: [facility] () [facility] Description: Urine Culture, [id number] 03:46:00 Test Item Value Reference Range Interpretation Comments Result 1 (test code Comment Mixed ur ogenital = 630-4) floraGreater th an 100,000 colony forming units per mLPerformed by: [facility] () [facility] Description: Urine Culture, [id number] 03:46:00 Test Item Value Reference Range Interpretation Comments Result 1 (test code Comment Mixed ur ogenital = 630-4) floraGreater th an 100,000 colony forming units per mLPerformed by: [facility] () [facility] Description: Urine Culture, [id number] 03:46:00 Test Item Value Reference Range Interpretation Comments Result 1 (test code Comment Mixed ur ogenital = 630-4) floraGreater th an 100,000 colony forming units per mLPerformed by: [facility] () [facility] Description: Urine Culture, [id number] 03:46:00 Test Item Value Reference Range Interpretation Comments Result 1 (test code Comment Mixed ur ogenital = 630-4) floraGreater th an 100,000 colony forming units per mLPerformed by: [facility] () [facility] Description: Urine Culture, [id number] 03:46:00 Test Item Value Reference Range Interpretation Comments Result 1 (test code Comment Mixed ur ogenital = 630-4) floraGreater th an 100,000 colony forming units per mLPerformed by: [facility] Description: Thyroxine (T4) free [Mass/volume] in Serum or [id number] 03:09:00 Test Item Value Reference Range Interpretation Comments T4,Free(Direct) (test code = 1.17 ng/dL 0.82-1.77 3024-7) [facility] Description: Thyrotropin [Units/volume] in Serum or Plasma by Detection limit <= 0.05 mIU/[id number] 03:09:00 Test Item Value Reference Range Interpretation Comments TSH (test code = 49669-1) 0.937 uIU/mL 0.450-4.500 [facility] Description: Thyroxine (T4) [Mass/volume] in Serum or Plasma 2022-09-04 03:09:00 Test Item Value Reference Range Interpretation Comments Thyroxine (T4) (test code = 3026-2) 8.6 ug/dL 4.5-12.0 [facility] Description: Triiodothyronine (T3) Free [Mass/volume] in Serum or [id number] 03:09:00 Test Item Value Reference Range Interpretation Comments Triiodothyronine (T3), Free (test 2.9 pg/mL 2.0-4.4 code = 3051-0) [facility] Description: Thyroxine (T4) free [Mass/volume] in Serum or [id number] 03:09:00 Test Item Value Reference Range Interpretation Comments T4,Free(Direct) (test code = 1.17 ng/dL 0.82-1.77 3024-7) [facility] Description: Thyrotropin [Units/volume] in Serum or Plasma by Detection limit <= 0.05 mIU/[id number] 03:09:00 Test Item Value Reference Range Interpretation Comments TSH (test code = 79987-8) 0.937 uIU/mL 0.450-4.500 [facility] Description: Thyroxine (T4) [Mass/volume] in Serum or Plasma 2022-09-04 03:09:00 Test Item Value Reference Range Interpretation Comments Thyroxine (T4) (test code = 3026-2) 8.6 ug/dL 4.5-12.0 [facility] Description: Triiodothyronine (T3) Free [Mass/volume] in Serum or [id number] 03:09:00 Test Item Value Reference Range Interpretation Comments Triiodothyronine (T3), Free (test 2.9 pg/mL 2.0-4.4 code = 3051-0) [facility] Description: Thyroxine (T4) free [Mass/volume] in Serum or [id number] 03:09:00 Test Item Value Reference Range Interpretation Comments T4,Free(Direct) (test code = 1.17 ng/dL 0.82-1.77 3024-7) [facility] Description: Thyrotropin [Units/volume] in Serum or Plasma by Detection limit <= 0.05 mIU/[id number] 03:09:00 Test Item Value Reference Range Interpretation Comments TSH (test code = 66431-4) 0.937 uIU/mL 0.450-4.500 [facility] Description: Thyroxine (T4) [Mass/volume] in Serum or Plasma 2022-09-04 03:09:00 Test Item Value Reference Range Interpretation Comments Thyroxine (T4) (test code = 3026-2) 8.6 ug/dL 4.5-12.0 [facility] Description: Triiodothyronine (T3) Free [Mass/volume] in Serum or [id number] 03:09:00 Test Item Value Reference Range Interpretation Comments Triiodothyronine (T3), Free (test 2.9 pg/mL 2.0-4.4 code = 3051-0) [facility] Description: Thyroxine (T4) free [Mass/volume] in Serum or [id number] 03:09:00 Test Item Value Reference Range Interpretation Comments T4,Free(Direct) (test code = 1.17 ng/dL 0.82-1.77 3024-7) [facility] Description: Thyrotropin [Units/volume] in Serum or Plasma by Detection limit <= 0.05 mIU/[id number] 03:09:00 Test Item Value Reference Range Interpretation Comments TSH (test code = 95792-4) 0.937 uIU/mL 0.450-4.500 [facility] Description: Thyroxine (T4) [Mass/volume] in Serum or Plasma 2022-09-04 03:09:00 Test Item Value Reference Range Interpretation Comments Thyroxine (T4) (test code = 3026-2) 8.6 ug/dL 4.5-12.0 [facility] Description: Triiodothyronine (T3) Free [Mass/volume] in Serum or [id number] 03:09:00 Test Item Value Reference Range Interpretation Comments Triiodothyronine (T3), Free (test 2.9 pg/mL 2.0-4.4 code = 3051-0) [facility] Description: Thyroxine (T4) free [Mass/volume] in Serum or [id number] 03:09:00 Test Item Value Reference Range Interpretation Comments T4,Free(Direct) (test code = 1.17 ng/dL 0.82-1.77 3024-7) [facility] Description: Thyrotropin [Units/volume] in Serum or Plasma by Detection limit <= 0.05 mIU/[id number] 03:09:00 Test Item Value Reference Range Interpretation Comments TSH (test code = 54117-7) 0.937 uIU/mL 0.450-4.500 [facility] Description: Thyroxine (T4) [Mass/volume] in Serum or Plasma 2022-09-04 03:09:00 Test Item Value Reference Range Interpretation Comments Thyroxine (T4) (test code = 3026-2) 8.6 ug/dL 4.5-12.0 [facility] Description: Triiodothyronine (T3) Free [Mass/volume] in Serum or [id number] 03:09:00 Test Item Value Reference Range Interpretation Comments Triiodothyronine (T3), Free (test 2.9 pg/mL 2.0-4.4 code = 3051-0) [facility] Description: Thyroxine (T4) free [Mass/volume] in Serum or [id number] 03:09:00 Test Item Value Reference Range Interpretation Comments T4,Free(Direct) (test code = 1.17 ng/dL 0.82-1.77 3024-7) [facility] Description: Thyrotropin [Units/volume] in Serum or Plasma by Detection limit <= 0.05 mIU/[id number] 03:09:00 Test Item Value Reference Range Interpretation Comments TSH (test code = 55239-4) 0.937 uIU/mL 0.450-4.500 [facility] Description: Thyroxine (T4) [Mass/volume] in Serum or Plasma 2022-09-04 03:09:00 Test Item Value Reference Range Interpretation Comments Thyroxine (T4) (test code = 3026-2) 8.6 ug/dL 4.5-12.0 [facility] Description: Triiodothyronine (T3) Free [Mass/volume] in Serum or [id number] 03:09:00 Test Item Value Reference Range Interpretation Comments Triiodothyronine (T3), Free (test 2.9 pg/mL 2.0-4.4 code = 3051-0) [facility] Description: Thyroxine (T4) free [Mass/volume] in Serum or [id number] 03:09:00 Test Item Value Reference Range Interpretation Comments T4,Free(Direct) (test code = 1.17 ng/dL 0.82-1.77 3024-7) [facility] Description: Thyrotropin [Units/volume] in Serum or Plasma by Detection limit <= 0.05 mIU/[id number] 03:09:00 Test Item Value Reference Range Interpretation Comments TSH (test code = 81849-1) 0.937 uIU/mL 0.450-4.500 [facility] Description: Thyroxine (T4) [Mass/volume] in Serum or Plasma 2022-09-04 03:09:00 Test Item Value Reference Range Interpretation Comments Thyroxine (T4) (test code = 3026-2) 8.6 ug/dL 4.5-12.0 [facility] Description: Triiodothyronine (T3) Free [Mass/volume] in Serum or [id number] 03:09:00 Test Item Value Reference Range Interpretation Comments Triiodothyronine (T3), Free (test 2.9 pg/mL 2.0-4.4 code = 3051-0) [facility] Description: Thyroxine (T4) free [Mass/volume] in Serum or [id number] 03:09:00 Test Item Value Reference Range Interpretation Comments T4,Free(Direct) (test code = 1.17 ng/dL 0.82-1.77 3024-7) [facility] Description: Thyrotropin [Units/volume] in Serum or Plasma by Detection limit <= 0.05 mIU/[id number] 03:09:00 Test Item Value Reference Range Interpretation Comments TSH (test code = 74089-4) 0.937 uIU/mL 0.450-4.500 [facility] Description: Thyroxine (T4) [Mass/volume] in Serum or Plasma 2022-09-04 03:09:00 Test Item Value Reference Range Interpretation Comments Thyroxine (T4) (test code = 3026-2) 8.6 ug/dL 4.5-12.0 [facility] Description: Triiodothyronine (T3) Free [Mass/volume] in Serum or [id number] 03:09:00 Test Item Value Reference Range Interpretation Comments Triiodothyronine (T3), Free (test 2.9 pg/mL 2.0-4.4 code = 3051-0) [facility] Description: Thyroxine (T4) free [Mass/volume] in Serum or [id number] 03:09:00 Test Item Value Reference Range Interpretation Comments T4,Free(Direct) (test code = 1.17 ng/dL 0.82-1.77 3024-7) [facility] Description: Thyrotropin [Units/volume] in Serum or Plasma by Detection limit <= 0.05 mIU/[id number] 03:09:00 Test Item Value Reference Range Interpretation Comments TSH (test code = 12661-9) 0.937 uIU/mL 0.450-4.500 [facility] Description: Thyroxine (T4) [Mass/volume] in Serum or Plasma 2022-09-04 03:09:00 Test Item Value Reference Range Interpretation Comments Thyroxine (T4) (test code = 3026-2) 8.6 ug/dL 4.5-12.0 [facility] Description: Triiodothyronine (T3) Free [Mass/volume] in Serum or Cmqyvo4179-56-68 03:09:00 Test Item Value Reference Range Interpretation Comments Triiodothyronine (T3), Free (test 2.9 pg/mL 2.0-4.4 code = 3051-0) [facility] Description: Thyroxine (T4) free [Mass/volume] in Serum or [id number] 03:09:00 Test Item Value Reference Range Interpretation Comments T4,Free(Direct) (test code = 1.17 ng/dL 0.82-1.77 3024-7) [facility] Description: Thyrotropin [Units/volume] in Serum or Plasma by Detection limit <= 0.05 mIU/R9658-94-71 03:09:00 Test Item Value Reference Range Interpretation Comments TSH (test code = 69012-6) 0.937 uIU/mL 0.450-4.500 [facility] Description: Thyroxine (T4) [Mass/volume] in Serum or Plasma 2022-09-04 03:09:00 Test Item Value Reference Range Interpretation Comments Thyroxine (T4) (test code = 3026-2) 8.6 ug/dL 4.5-12.0 [facility] Description: Triiodothyronine (T3) Free [Mass/volume] in Serum or [id number] 03:09:00 Test Item Value Reference Range Interpretation Comments Triiodothyronine (T3), Free (test 2.9 pg/mL 2.0-4.4 code = 3051-0) [facility] Description: Thyroxine (T4) free [Mass/volume] in Serum or [id number] 03:09:00 Test Item Value Reference Range Interpretation Comments T4,Free(Direct) (test code = 1.17 ng/dL 0.82-1.77 3024-7) [facility] Description: Thyrotropin [Units/volume] in Serum or Plasma by Detection limit <= 0.05 mIU/[id number] 03:09:00 Test Item Value Reference Range Interpretation Comments TSH (test code = 67461-5) 0.937 uIU/mL 0.450-4.500 [facility] Description: Thyroxine (T4) [Mass/volume] in Serum or Plasma 2022-09-04 03:09:00 Test Item Value Reference Range Interpretation Comments Thyroxine (T4) (test code = 3026-2) 8.6 ug/dL 4.5-12.0 [facility] Description: Triiodothyronine (T3) Free [Mass/volume] in Serum or [id number] 03:09:00 Test Item Value Reference Range Interpretation Comments Triiodothyronine (T3), Free (test 2.9 pg/mL 2.0-4.4 code = 3051-0) [facility] Description: Thyroxine (T4) free [Mass/volume] in Serum or Eikeml0404-15-83 03:09:00 Test Item Value Reference Range Interpretation Comments T4,Free(Direct) (test code = 1.17 ng/dL 0.82-1.77 3024-7) [facility] Description: Thyrotropin [Units/volume] in Serum or Plasma by Detection limit <= 0.05 mIU/[id number] 03:09:00 Test Item Value Reference Range Interpretation Comments TSH (test code = 26632-6) 0.937 uIU/mL 0.450-4.500 [facility] Description: Thyroxine (T4) [Mass/volume] in Serum or Plasma 2022-09-04 03:09:00 Test Item Value Reference Range Interpretation Comments Thyroxine (T4) (test code = 3026-2) 8.6 ug/dL 4.5-12.0 [facility] Description: Triiodothyronine (T3) Free [Mass/volume] in Serum or [id number] 03:09:00 Test Item Value Reference Range Interpretation Comments Triiodothyronine (T3), Free (test 2.9 pg/mL 2.0-4.4 code = 3051-0) [facility] Description: Thyroxine (T4) free [Mass/volume] in Serum or [id number] 03:09:00 Test Item Value Reference Range Interpretation Comments T4,Free(Direct) (test code = 1.17 ng/dL 0.82-1.77 3024-7) [facility] Description: Thyrotropin [Units/volume] in Serum or Plasma by Detection limit <= 0.05 mIU/[id number] 03:09:00 Test Item Value Reference Range Interpretation Comments TSH (test code = 84154-3) 0.937 uIU/mL 0.450-4.500 [facility] Description: Thyroxine (T4) [Mass/volume] in Serum or Plasma 2022-09-04 03:09:00 Test Item Value Reference Range Interpretation Comments Thyroxine (T4) (test code = 3026-2) 8.6 ug/dL 4.5-12.0 [facility] Description: Triiodothyronine (T3) Free [Mass/volume] in Serum or [id number] 03:09:00 Test Item Value Reference Range Interpretation Comments Triiodothyronine (T3), Free (test 2.9 pg/mL 2.0-4.4 code = 3051-0) [facility] Description: Thyroxine (T4) free [Mass/volume] in Serum or [id number] 03:09:00 Test Item Value Reference Range Interpretation Comments T4,Free(Direct) (test code = 1.17 ng/dL 0.82-1.77 3024-7) [facility] Description: Thyrotropin [Units/volume] in Serum or Plasma by Detection limit <= 0.05 mIU/Q6693-92-24 03:09:00 Test Item Value Reference Range Interpretation Comments TSH (test code = 96676-8) 0.937 uIU/mL 0.450-4.500 [facility] Description: Thyroxine (T4) [Mass/volume] in Serum or Plasma 2022-09-04 03:09:00 Test Item Value Reference Range Interpretation Comments Thyroxine (T4) (test code = 3026-2) 8.6 ug/dL 4.5-12.0 [facility] Description: Triiodothyronine (T3) Free [Mass/volume] in Serum or [id number] 03:09:00 Test Item Value Reference Range Interpretation Comments Triiodothyronine (T3), Free (test 2.9 pg/mL 2.0-4.4 code = 3051-0) [facility] Description: Thyroxine (T4) free [Mass/volume] in Serum or Ibmxjp9682-55-04 03:09:00 Test Item Value Reference Range Interpretation Comments T4,Free(Direct) (test code = 1.17 ng/dL 0.82-1.77 3024-7) [facility] Description: Thyrotropin [Units/volume] in Serum or Plasma by Detection limit <= 0.05 mIU/[id number] 03:09:00 Test Item Value Reference Range Interpretation Comments TSH (test code = 97205-4) 0.937 uIU/mL 0.450-4.500 [facility]: Thyroxine (T4) [Mass/volume] in Serum or Plasma 2022-09-04 03:09:00 Test Item Value Reference Range Interpretation Comments Thyroxine (T4) (test code = 3026-2) 8.6 ug/dL 4.5-12.0 [facility] Description: Triiodothyronine (T3) Free [Mass/volume] in Serum or [id number] 03:09:00 Test Item Value Reference Range Interpretation Comments Triiodothyronine (T3), Free (test 2.9 pg/mL 2.0-4.4 code = 3051-0) [facility] Description: Thyroxine (T4) free [Mass/volume] in Serum or [id number] 03:09:00 Test Item Value Reference Range Interpretation Comments T4,Free(Direct) (test code = 1.17 ng/dL 0.82-1.77 3024-7) [facility] Description: Thyrotropin [Units/volume] in Serum or Plasma by Detection limit <= 0.05 mIU/H2243-26-71 03:09:00 Test Item Value Reference Range Interpretation Comments TSH (test code = 73412-4) 0.937 uIU/mL 0.450-4.500 [facility] Description: Thyroxine (T4) [Mass/volume] in Serum or Plasma 2022-09-04 03:09:00 Test Item Value Reference Range Interpretation Comments Thyroxine (T4) (test code = 3026-2) 8.6 ug/dL 4.5-12.[address] [facility]: Triiodothyronine (T3) Free [Mass/volume] in Serum or [id number] 03:09:00 Test Item Value Reference Range Interpretation Comments Triiodothyronine (T3), Free (test 2.9 pg/mL 2.0-4.4 code = 3051-0) [facility] Description: Thyroxine (T4) free [Mass/volume] in Serum or Rysyrn9625-69-90 03:09:00 Test Item Value Reference Range Interpretation Comments T4,Free(Direct) (test code = 1.17 ng/dL 0.82-1.77 3024-7) [facility] Description: Thyrotropin [Units/volume] in Serum or Plasma by Detection limit <= 0.05 mIU/[id number] 03:09:00 Test Item Value Reference Range Interpretation Comments TSH (test code = 59521-6) 0.937 uIU/mL 0.450-4.500 [facility] Description: Thyroxine (T4) [Mass/volume] in Serum or Plasma 2022-09-04 03:09:00 Test Item Value Reference Range Interpretation Comments Thyroxine (T4) (test code = 3026-2) 8.6 ug/dL 4.5-12.0 [facility] Description: Triiodothyronine (T3) Free [Mass/volume] in Serum or [id number] 03:09:00 Test Item Value Reference Range Interpretation Comments Triiodothyronine (T3), Free (test 2.9 pg/mL 2.0-4.4 code = 3051-0) [facility] Description: Thyroxine (T4) free [Mass/volume] in Serum or Abcmwl6511-79-79 03:09:00 Test Item Value Reference Range Interpretation Comments T4,Free(Direct) (test code = 1.17 ng/dL 0.82-1.77 3024-7) [facility] Description: Thyrotropin [Units/volume] in Serum or Plasma by Detection limit <= 0.05 mIU/[id number] 03:09:00 Test Item Value Reference Range Interpretation Comments TSH (test code = 10722-1) 0.937 uIU/mL 0.450-4.500 [facility] Description: Thyroxine (T4) [Mass/volume] in Serum or Plasma 2022-09-04 03:09:00 Test Item Value Reference Range Interpretation Comments Thyroxine (T4) (test code = 3026-2) 8.6 ug/dL 4.5-12.0 [facility] Description: Triiodothyronine (T3) Free [Mass/volume] in Serum or [id number] 03:09:00 Test Item Value Reference Range Interpretation Comments Triiodothyronine (T3), Free (test 2.9 pg/mL 2.0-4.4 code = 3051-0) [facility] Description: Thyroxine (T4) free [Mass/volume] in Serum or Ogzuzo3446-12-64 03:09:00 Test Item Value Reference Range Interpretation Comments T4,Free(Direct) (test code = 1.17 ng/dL 0.82-1.77 3024-7) [facility] Description: Thyrotropin [Units/volume] in Serum or Plasma by Detection limit <= 0.05 mIU/[id number] 03:09:00 Test Item Value Reference Range Interpretation Comments TSH (test code = 13935-7) 0.937 uIU/mL 0.450-4.500 [facility] Description: Thyroxine (T4) [Mass/volume] in Serum or Plasma 2022-09-04 03:09:00 Test Item Value Reference Range Interpretation Comments Thyroxine (T4) (test code = 3026-2) 8.6 ug/dL 4.5-12.0 [facility] Description: Triiodothyronine (T3) Free [Mass/volume] in Serum or Kmngua6401-45-92 03:09:00 Test Item Value Reference Range Interpretation Comments Triiodothyronine (T3), Free (test 2.9 pg/mL 2.0-4.4 code = 3051-0) [facility] Description: Thyroxine (T4) free [Mass/volume] in Serum or Sjucyz3452-75-89 03:09:00 Test Item Value Reference Range Interpretation Comments T4,Free(Direct) (test code = 1.17 ng/dL 0.82-1.77 3024-7) [facility] Description: Thyrotropin [Units/volume] in Serum or Plasma by Detection limit <= 0.05 mIU/[id number] 03:09:00 Test Item Value Reference Range Interpretation Comments TSH (test code = 65095-1) 0.937 uIU/mL 0.450-4.500 [facility] Description: Thyroxine (T4) free [Mass/volume] in Serum or Zuxjqr3946-31-69 03:09:00 Test Item Value Reference Range Interpretation Comments T4,Free(Direct) (test code = 1.17 ng/dL 0.82-1.77 3024-7) [facility] Description: Thyrotropin [Units/volume] in Serum or Plasma by Detection limit <= 0.05 mIU/[id number] 03:09:00 Test Item Value Reference Range Interpretation Comments TSH (test code = 79740-7) 0.937 uIU/mL 0.450-4.500 [facility] Description: Thyroxine (T4) [Mass/volume] in Serum or Plasma 2022-09-04 03:09:00 Test Item Value Reference Range Interpretation Comments Thyroxine (T4) (test code = 3026-2) 8.6 ug/dL 4.5-12.0 [facility] Description: Triiodothyronine (T3) Free [Mass/volume] in Serum or Rkyhen5852-05-24 03:09:00 Test Item Value Reference Range Interpretation Comments Triiodothyronine (T3), Free (test 2.9 pg/mL 2.0-4.4 code = 3051-0) [facility] Description: Thyroxine (T4) [Mass/volume] in Serum or Plasma 2022-09-04 03:09:00 Test Item Value Reference Range Interpretation Comments Thyroxine (T4) (test code = 3026-2) 8.6 ug/dL 4.5-12.0 [facility] Description: Thyroxine (T4) free [Mass/volume] in Serum or Iseakc5129-77-15 03:09:00 Test Item Value Reference Range Interpretation Comments T4,Free(Direct) (test code = 1.17 ng/dL 0.82-1.77 3024-7) [facility] Description: Thyrotropin [Units/volume] in Serum or Plasma by Detection limit <= 0.05 mIU/[id number] 03:09:00 Test Item Value Reference Range Interpretation Comments TSH (test code = 73473-3) 0.937 uIU/mL 0.450-4.500 [facility] Description: Thyroxine (T4) [Mass/volume] in Serum or Plasma 2022-09-04 03:09:00 Test Item Value Reference Range Interpretation Comments Thyroxine (T4) (test code = 3026-2) 8.6 ug/dL 4.5-12.0 [facility] Description: Triiodothyronine (T3) Free [Mass/volume] in Serum or Rnzqib7176-10-16 03:09:00 Test Item Value Reference Range Interpretation Comments Triiodothyronine (T3), Free (test 2.9 pg/mL 2.0-4.4 code = 3051-0) [facility] Description: Triiodothyronine (T3) Free [Mass/volume] in Serum or [id number] 03:09:00 Test Item Value Reference Range Interpretation Comments Triiodothyronine (T3), Free (test 2.9 pg/mL 2.0-4.4 code = 3051-0) [facility] Description: Microscopic Vnzltqkiaxg2710-19-25 15:14:00 Test Item Value Reference Range Interpretation Comments WBC (test code = 5821-4) 0-5 0-5 RBC (test code = 63632-1) 0-2 0-2 Epithelial Cells (non renal) (test 0-10 0-10 code = 5787-7) Epithelial Cells (renal) (test code = 39819-3) Casts (test code = 75723-8) None seen None seen Cast Type (test code = 00755-4) Crystals (test code = 5783-6) Crystal Type (test code = 5782-8) Mucus Threads (test code = 8247-9) Bacteria (test code = 5769-5) Few None seen/Few Yeast (test code = 5822-2) Trichomonas (test code = 5813-1) Comment (test code = 12779-9) [facility] Description: Microscopic Kdslyrcbuyp5137-71-64 15:14:00 Test Item Value Reference Range Interpretation Comments WBC (test code = 5821-4) 0-5 0-5 RBC (test code = 26856-6) 0-2 0-2 Epithelial Cells (non renal) (test 0-10 0-10 code = 5787-7) Epithelial Cells (renal) (test code = 55313-0) Casts (test code = 53013-1) None seen None seen Cast Type (test code = 52549-5) Crystals (test code = 5783-6) Crystal Type (test code = 5782-8) Mucus Threads (test code = 8247-9) Bacteria (test code = 5769-5) Few None seen/Few Yeast (test code = 5822-2) Trichomonas (test code = 5813-1) Comment (test code = 26838-1) [facility] Description: Microscopic Ecdlbwntdxl6228-02-66 15:14:00 Test Item Value Reference Range Interpretation Comments WBC (test code = 5821-4) 0-5 0-5 RBC (test code = 09000-6) 0-2 0-2 Epithelial Cells (non renal) (test 0-10 0-10 code = 5787-7) Epithelial Cells (renal) (test code = 89492-7) Casts (test code = 33731-8) None seen None seen Cast Type (test code = 86014-4) Crystals (test code = 5783-6) Crystal Type (test code = 5782-8) Mucus Threads (test code = 8247-9) Bacteria (test code = 5769-5) Few None seen/Few Yeast (test code = 5822-2) Trichomonas (test code = 5813-1) Comment (test code = 09370-3) [facility] Description: Microscopic Tjsidmhmybx3643-22-12 15:14:00 Test Item Value Reference Range Interpretation Comments WBC (test code = 5821-4) 0-5 0-5 RBC (test code = 72780-4) 0-2 0-2 Epithelial Cells (non renal) (test 0-10 0-10 code = 5787-7) Epithelial Cells (renal) (test code = 00381-9) Casts (test code = 63424-2) None seen None seen Cast Type (test code = 16329-9) Crystals (test code = 5783-6) Crystal Type (test code = 5782-8) Mucus Threads (test code = 8247-9) Bacteria (test code = 5769-5) Few None seen/Few Yeast (test code = 5822-2) Trichomonas (test code = 5813-1) Comment (test code = 44223-5) [facility] Description: Microscopic Boptcvjkeyw2375-16-38 15:14:00 Test Item Value Reference Range Interpretation Comments WBC (test code = 5821-4) 0-5 0-5 RBC (test code = 26404-0) 0-2 0-2 Epithelial Cells (non renal) (test 0-10 0-10 code = 5787-7) Epithelial Cells (renal) (test code = 14975-9) Casts (test code = 14346-3) None seen None seen Cast Type (test code = 36416-9) Crystals (test code = 5783-6) Crystal Type (test code = 5782-8) Mucus Threads (test code = 8247-9) Bacteria (test code = 5769-5) Few None seen/Few Yeast (test code = 5822-2) Trichomonas (test code = 5813-1) Comment (test code = 18696-3) [facility] Description: Microscopic Hrtjmpxniyh5006-49-37 15:14:00 Test Item Value Reference Range Interpretation Comments WBC (test code = 5821-4) 0-5 0-5 RBC (test code = 94644-1) 0-2 0-2 Epithelial Cells (non renal) (test 0-10 0-10 code = 5787-7) Epithelial Cells (renal) (test code = 87426-3) Casts (test code = 95944-9) None seen None seen Cast Type (test code = 85413-6) Crystals (test code = 5783-6) Crystal Type (test code = 5782-8) Mucus Threads (test code = 8247-9) Bacteria (test code = 5769-5) Few None seen/Few Yeast (test code = 5822-2) Trichomonas (test code = 5813-1) Comment (test code = 54832-4) [facility] Description: Microscopic Obadqrmkxqp5618-67-69 15:14:00 Test Item Value Reference Range Interpretation Comments WBC (test code = 5821-4) 0-5 0-5 RBC (test code = 94485-3) 0-2 0-2 Epithelial Cells (non renal) (test 0-10 0-10 code = 5787-7) Epithelial Cells (renal) (test code = 11120-5) Casts (test code = 26564-3) None seen None seen Cast Type (test code = 81314-5) Crystals (test code = 5783-6) Crystal Type (test code = 5782-8) Mucus Threads (test code = 8247-9) Bacteria (test code = 5769-5) Few None seen/Few Yeast (test code = 5822-2) Trichomonas (test code = 5813-1) Comment (test code = 06407-3) [facility] Description: Microscopic Mepfcvgbopx1701-78-51 15:14:00 Test Item Value Reference Range Interpretation Comments WBC (test code = 5821-4) 0-5 0-5 RBC (test code = 55962-2) 0-2 0-2 Epithelial Cells (non renal) (test 0-10 0-10 code = 5787-7) Epithelial Cells (renal) (test code = 18953-4) Casts (test code = 66970-1) None seen None seen Cast Type (test code = 71919-7) Crystals (test code = 5783-6) Crystal Type (test code = 5782-8) Mucus Threads (test code = 8247-9) Bacteria (test code = 5769-5) Few None seen/Few Yeast (test code = 5822-2) Trichomonas (test code = 5813-1) Comment (test code = 60878-0) [facility] Description: Microscopic Ghgypvqlfsb1859-47-23 15:14:00 Test Item Value Reference Range Interpretation Comments WBC (test code = 5821-4) 0-5 0-5 RBC (test code = 29917-5) 0-2 0-2 Epithelial Cells (non renal) (test 0-10 0-10 code = 5787-7) Epithelial Cells (renal) (test code = 39263-9) Casts (test code = 49407-5) None seen None seen Cast Type (test code = 96034-6) Crystals (test code = 5783-6) Crystal Type (test code = 5782-8) Mucus Threads (test code = 8247-9) Bacteria (test code = 5769-5) Few None seen/Few Yeast (test code = 5822-2) Trichomonas (test code = 5813-1) Comment (test code = 87557-4) [facility] Description: Microscopic Fpvkcqegrrp7083-09-60 15:14:00 Test Item Value Reference Range Interpretation Comments WBC (test code = 5821-4) 0-5 0-5 RBC (test code = 90129-9) 0-2 0-2 Epithelial Cells (non renal) (test 0-10 0-10 code = 5787-7) Epithelial Cells (renal) (test code = 45030-9) Casts (test code = 87510-2) None seen None seen Cast Type (test code = 09313-8) Crystals (test code = 5783-6) Crystal Type (test code = 5782-8) Mucus Threads (test code = 8247-9) Bacteria (test code = 5769-5) Few None seen/Few Yeast (test code = 5822-2) Trichomonas (test code = 5813-1) Comment (test code = 90318-4) [facility] Description: Microscopic Ojhrhqtnnmb9201-84-01 15:14:00 Test Item Value Reference Range Interpretation Comments WBC (test code = 5821-4) 0-5 0-5 RBC (test code = 26481-9) 0-2 0-2 Epithelial Cells (non renal) (test 0-10 0-10 code = 5787-7) Epithelial Cells (renal) (test code = 26891-6) Casts (test code = 20783-5) None seen None seen Cast Type (test code = 77902-0) Crystals (test code = 5783-6) Crystal Type (test code = 5782-8) Mucus Threads (test code = 8247-9) Bacteria (test code = 5769-5) Few None seen/Few Yeast (test code = 5822-2) Trichomonas (test code = 5813-1) Comment (test code = 27225-3) [facility] Description: Microscopic Nfnohkcuoxm2493-09-07 15:14:00 Test Item Value Reference Range Interpretation Comments WBC (test code = 5821-4) 0-5 0-5 RBC (test code = 22542-2) 0-2 0-2 Epithelial Cells (non renal) (test 0-10 0-10 code = 5787-7) Epithelial Cells (renal) (test code = 16510-7) Casts (test code = 07978-0) None seen None seen Cast Type (test code = 60775-3) Crystals (test code = 5783-6) Crystal Type (test code = 5782-8) Mucus Threads (test code = 8247-9) Bacteria (test code = 5769-5) Few None seen/Few Yeast (test code = 5822-2) Trichomonas (test code = 5813-1) Comment (test code = 03780-8) [facility] Description: Microscopic Zusewozuosa7212-86-72 15:14:00 Test Item Value Reference Range Interpretation Comments WBC (test code = 5821-4) 0-5 0-5 RBC (test code = 26570-9) 0-2 0-2 Epithelial Cells (non renal) (test 0-10 0-10 code = 5787-7) Epithelial Cells (renal) (test code = 62803-9) Casts (test code = 76350-6) None seen None seen Cast Type (test code = 01803-0) Crystals (test code = 5783-6) Crystal Type (test code = 5782-8) Mucus Threads (test code = 8247-9) Bacteria (test code = 5769-5) Few None seen/Few Yeast (test code = 5822-2) Trichomonas (test code = 5813-1) Comment (test code = 59764-6) [facility] Description: Microscopic Dpqddqeufyl0154-40-06 15:14:00 Test Item Value Reference Range Interpretation Comments WBC (test code = 5821-4) 0-5 0-5 RBC (test code = 19766-0) 0-2 0-2 Epithelial Cells (non renal) (test 0-10 0-10 code = 5787-7) Epithelial Cells (renal) (test code = 95043-1) Casts (test code = 85238-5) None seen None seen Cast Type (test code = 81298-8) Crystals (test code = 5783-6) Crystal Type (test code = 5782-8) Mucus Threads (test code = 8247-9) Bacteria (test code = 5769-5) Few None seen/Few Yeast (test code = 5822-2) Trichomonas (test code = 5813-1) Comment (test code = 40686-5) [facility] Description: Microscopic Pjawnckfrnc0146-03-20 15:14:00 Test Item Value Reference Range Interpretation Comments WBC (test code = 5821-4) 0-5 0-5 RBC (test code = 42856-8) 0-2 0-2 Epithelial Cells (non renal) (test 0-10 0-10 code = 5787-7) Epithelial Cells (renal) (test code = 58439-5) Casts (test code = 51232-7) None seen None seen Cast Type (test code = 59698-3) Crystals (test code = 5783-6) Crystal Type (test code = 5782-8) Mucus Threads (test code = 8247-9) Bacteria (test code = 5769-5) Few None seen/Few Yeast (test code = 5822-2) Trichomonas (test code = 5813-1) Comment (test code = 51888-6) [facility] Description: Microscopic Jhnukvsaepe6019-18-42 15:14:00 Test Item Value Reference Range Interpretation Comments WBC (test code = 5821-4) 0-5 0-5 RBC (test code = 96115-1) 0-2 0-2 Epithelial Cells (non renal) (test 0-10 0-10 code = 5787-7) Epithelial Cells (renal) (test code = 26796-2) Casts (test code = 00082-4) None seen None seen Cast Type (test code = 18870-4) Crystals (test code = 5783-6) Crystal Type (test code = 5782-8) Mucus Threads (test code = 8247-9) Bacteria (test code = 5769-5) Few None seen/Few Yeast (test code = 5822-2) Trichomonas (test code = 5813-1) Comment (test code = 62571-8) [facility] Description: Microscopic Iqaoraeuiof2885-35-81 15:14:00 Test Item Value Reference Range Interpretation Comments WBC (test code = 5821-4) 0-5 0-5 RBC (test code = 31906-8) 0-2 0-2 Epithelial Cells (non renal) (test 0-10 0-10 code = 5787-7) Epithelial Cells (renal) (test code = 88177-5) Casts (test code = 27113-7) None seen None seen Cast Type (test code = 85591-8) Crystals (test code = 5783-6) Crystal Type (test code = 5782-8) Mucus Threads (test code = 8247-9) Bacteria (test code = 5769-5) Few None seen/Few Yeast (test code = 5822-2) Trichomonas (test code = 5813-1) Comment (test code = 07441-1) [facility] Description: Microscopic Nxasbzgxphb8710-49-46 15:14:00 Test Item Value Reference Range Interpretation Comments WBC (test code = 5821-4) 0-5 0-5 RBC (test code = 89641-3) 0-2 0-2 Epithelial Cells (non renal) (test 0-10 0-10 code = 5787-7) Epithelial Cells (renal) (test code = 57475-6) Casts (test code = 29187-4) None seen None seen Cast Type (test code = 65347-0) Crystals (test code = 5783-6) Crystal Type (test code = 5782-8) Mucus Threads (test code = 8247-9) Bacteria (test code = 5769-5) Few None seen/Few Yeast (test code = 5822-2) Trichomonas (test code = 5813-1) Comment (test code = 91105-2) [facility] Description: Microscopic Vcqzsoehuuh0218-92-20 15:14:00 Test Item Value Reference Range Interpretation Comments WBC (test code = 5821-4) 0-5 0-5 RBC (test code = 45953-7) 0-2 0-2 Epithelial Cells (non renal) (test 0-10 0-10 code = 5787-7) Epithelial Cells (renal) (test code = 54861-6) Casts (test code = 16973-6) None seen None seen Cast Type (test code = 56636-8) Crystals (test code = 5783-6) Crystal Type (test code = 5782-8) Mucus Threads (test code = 8247-9) Bacteria (test code = 5769-5) Few None seen/Few Yeast (test code = 5822-2) Trichomonas (test code = 5813-1) Comment (test code = 57976-0) [facility] Description: Microscopic Tkedrgabbrz7077-61-02 15:14:00 Test Item Value Reference Range Interpretation Comments WBC (test code = 5821-4) 0-5 0-5 RBC (test code = 16798-8) 0-2 0-2 Epithelial Cells (non renal) (test 0-10 0-10 code = 5787-7) Epithelial Cells (renal) (test code = 30802-6) Casts (test code = 62800-1) None seen None seen Cast Type (test code = 22192-5) Crystals (test code = 5783-6) Crystal Type (test code = 5782-8) Mucus Threads (test code = 8247-9) Bacteria (test code = 5769-5) Few None seen/Few Yeast (test code = 5822-2) Trichomonas (test code = 5813-1) Comment (test code = 61706-5) [facility] Description: Microscopic Cxqqwvhqewz6315-98-55 15:14:00 Test Item Value Reference Range Interpretation Comments WBC (test code = 5821-4) 0-5 0-5 RBC (test code = 67081-1) 0-2 0-2 Epithelial Cells (non renal) (test 0-10 0-10 code = 5787-7) Epithelial Cells (renal) (test code = 48209-6) Casts (test code = 60559-1) None seen None seen Cast Type (test code = 80871-9) Crystals (test code = 5783-6) Crystal Type (test code = 5782-8) Mucus Threads (test code = 8247-9) Bacteria (test code = 5769-5) Few None seen/Few Yeast (test code = 5822-2) Trichomonas (test code = 5813-1) Comment (test code = 07241-1) [facility] Description: Microscopic Osopgcvxniw0647-22-91 15:14:00 Test Item Value Reference Range Interpretation Comments WBC (test code = 5821-4) 0-5 0-5 RBC (test code = 21239-5) 0-2 0-2 Epithelial Cells (non renal) (test 0-10 0-10 code = 5787-7) Epithelial Cells (renal) (test code = 81684-8) Casts (test code = 61859-7) None seen None seen Cast Type (test code = 66261-7) Crystals (test code = 5783-6) Crystal Type (test code = 5782-8) Mucus Threads (test code = 8247-9) Bacteria (test code = 5769-5) Few None seen/Few Yeast (test code = 5822-2) Trichomonas (test code = 5813-1) Comment (test code = 24366-6) [facility] Description: Urinalysis, Dbyjdsru8437-48-13 14:53:00 Test Item Value Reference Range Interpretation Comments Specific [place] (test 1.023 1.005-1.030 code = 5811-5) pH (test code = 6.0 5.0-7.5 5803-2) Urine-Color (test code Yellow Yellow = 5778-6) Appearance (test code Clear Clear = 5767-9) WBC Esterase (test Negative Negative code = 5799-2) Protein (test code = Trace Negative/Trace 19434-8) Glucose (test code = Negative Negative 76021-7) Ketones (test code = Negative Negative 2514-8) Occult Blood (test Negative Negative code = 5794-3) Bilirubin (test code = Negative Negative 5770-3) Urobilinogen,Semi-Qn 1.0 mg/dL 0.2-1.0 (test code = 34795-6) Nitrite, Urine (test Negative Negative code = 5802-4) Microscopic See below: Microscopic was Examination (test code indic ated and was = 50132-9) performed.Perfo rmed by:[employer] ([place]) [facility] Description: Urinalysis, Okrfdwwf9575-33-97 14:53:00 Test Item Value Reference Range Interpretation Comments Specific [place] (test 1.023 1.005-1.030 code = 5811-5) pH (test code = 6.0 5.0-7.5 5803-2) Urine-Color (test code Yellow Yellow = 5778-6) Appearance (test code Clear Clear = 5767-9) WBC Esterase (test Negative Negative code = 5799-2) Protein (test code = Trace Negative/Trace 34300-1) Glucose (test code = Negative Negative 31109-8) Ketones (test code = Negative Negative 2514-8) Occult Blood (test Negative Negative code = 5794-3) Bilirubin (test code = Negative Negative 5770-3) Urobilinogen,Semi-Qn 1.0 mg/dL 0.2-1.0 (test code = 33331-8) Nitrite, Urine (test Negative Negative code = 5802-4) Microscopic See below: Microscopic was Examination (test code indic ated and was = 85516-9) performed.Perfo rmed by:[employer] ([facility]) [facility] Description: Urinalysis, Ijwwjlkq6005-37-34 14:53:00 Test Item Value Reference Range Interpretation Comments Specific [place] (test 1.023 1.005-1.030 code = 5811-5) pH (test code = 6.0 5.0-7.5 5803-2) Urine-Color (test code Yellow Yellow = 5778-6) Appearance (test code Clear Clear = 5767-9) WBC Esterase (test Negative Negative code = 5799-2) Protein (test code = Trace Negative/Trace 02035-6) Glucose (test code = Negative Negative 80126-5) Ketones (test code = Negative Negative 2514-8) Occult Blood (test Negative Negative code = 5794-3) Bilirubin (test code = Negative Negative 5770-3) Urobilinogen,Semi-Qn 1.0 mg/dL 0.2-1.0 (test code = 86583-5) Nitrite, Urine (test Negative Negative code = 5802-4) Microscopic See below: Microscopic was Examination (test code indic ated and was = 17681-3) performed.Perfo rmed by:[employer] ([place]) [facility] Description: Urinalysis, Iqsulhtd0770-81-11 14:53:00 Test Item Value Reference Range Interpretation Comments Specific [place] (test 1.023 1.005-1.030 code = 5811-5) pH (test code = 6.0 5.0-7.5 5803-2) Urine-Color (test code Yellow Yellow = 5778-6) Appearance (test code Clear Clear = 5767-9) WBC Esterase (test Negative Negative code = 5799-2) Protein (test code = Trace Negative/Trace 73797-0) Glucose (test code = Negative Negative 90708-1) Ketones (test code = Negative Negative 2514-8) Occult Blood (test Negative Negative code = 5794-3) Bilirubin (test code = Negative Negative 5770-3) Urobilinogen,Semi-Qn 1.0 mg/dL 0.2-1.0 (test code = 36711-5) Nitrite, Urine (test Negative Negative code = 5802-4) Microscopic See below: Microscopic was Examination (test code indic ated and was = 41583-6) performed.Perfo rmed by:[employer] ([place]) [facility] Description: Urinalysis, Xfhpyfex3741-33-10 14:53:00 Test Item Value Reference Range Interpretation Comments Specific [place] (test 1.023 1.005-1.030 code = 5811-5) pH (test code = 6.0 5.0-7.5 5803-2) Urine-Color (test code Yellow Yellow = 5778-6) Appearance (test code Clear Clear = 5767-9) WBC Esterase (test Negative Negative code = 5799-2) Protein (test code = Trace Negative/Trace 73108-4) Glucose (test code = Negative Negative 35462-6) Ketones (test code = Negative Negative 2514-8) Occult Blood (test Negative Negative code = 5794-3) Bilirubin (test code = Negative Negative 5770-3) Urobilinogen,Semi-Qn 1.0 mg/dL 0.2-1.0 (test code = 79161-9) Nitrite, Urine (test Negative Negative code = 5802-4) Microscopic See below: Microscopic was Examination (test code indic ated and was = 89308-2) performed.Perfo rmed by:[employer] ([employer]) [facility] Description: Urinalysis, Sgsqqirf0139-82-33 14:53:00 Test Item Value Reference Range Interpretation Comments Specific [place] (test 1.023 1.005-1.030 code = 5811-5) pH (test code = 6.0 5.0-7.5 5803-2) Urine-Color (test code Yellow Yellow = 5778-6) Appearance (test code Clear Clear = 5767-9) WBC Esterase (test Negative Negative code = 5799-2) Protein (test code = Trace Negative/Trace 94538-1) Glucose (test code = Negative Negative 10920-2) Ketones (test code = Negative Negative 2514-8) Occult Blood (test Negative Negative code = 5794-3) Bilirubin (test code = Negative Negative 5770-3) Urobilinogen,Semi-Qn 1.0 mg/dL 0.2-1.0 (test code = 95928-6) Nitrite, Urine (test Negative Negative code = 5802-4) Microscopic See below: Microscopic was Examination (test code indic ated and was = 48090-4) performed.Perfo rmed by:[employer] ([place]) [facility] Description: Urinalysis, Bsldtqyw8406-08-13 14:53:00 Test Item Value Reference Range Interpretation Comments Specific [place] (test 1.023 1.005-1.030 code = 5811-5) pH (test code = 6.0 5.0-7.5 5803-2) Urine-Color (test code Yellow Yellow = 5778-6) Appearance (test code Clear Clear = 5767-9) WBC Esterase (test Negative Negative code = 5799-2) Protein (test code = Trace Negative/Trace 69808-8) Glucose (test code = Negative Negative 41661-2) Ketones (test code = Negative Negative 2514-8) Occult Blood (test Negative Negative code = 5794-3) Bilirubin (test code = Negative Negative 5770-3) Urobilinogen,Semi-Qn 1.0 mg/dL 0.2-1.0 (test code = 68841-5) Nitrite, Urine (test Negative Negative code = 5802-4) Microscopic See below: Microscopic was Examination (test code indic ated and was = 98332-0) performed.Perfo rmed by:Loffles Roseanna darden ([employer] [facility] Description: Urinalysis, Luvdctob7301-91-77 14:53:00 Test Item Value Reference Range Interpretation Comments Specific [place] (test 1.023 1.005-1.030 code = 5811-5) pH (test code = 6.0 5.0-7.5 5803-2) Urine-Color (test code Yellow Yellow = 5778-6) Appearance (test code Clear Clear = 5767-9) WBC Esterase (test Negative Negative code = 5799-2) Protein (test code = Trace Negative/Trace 82173-6) Glucose (test code = Negative Negative 13830-6) Ketones (test code = Negative Negative 2514-8) Occult Blood (test Negative Negative code = 5794-3) Bilirubin (test code = Negative Negative 5770-3) Urobilinogen,Semi-Qn 1.0 mg/dL 0.2-1.0 (test code = 96877-7) Nitrite, Urine (test Negative Negative code = 5802-4) Microscopic See below: Microscopic was Examination (test code indic ated and was = 22028-7) performed.Perfo rmed by:[employer] [facility] ([place]) [facility] Description: Urinalysis, Gxnucsey2148-54-71 14:53:00 Test Item Value Reference Range Interpretation Comments Specific [place] (test 1.023 1.005-1.030 code = 5811-5) pH (test code = 6.0 5.0-7.5 5803-2) Urine-Color (test code Yellow Yellow = 5778-6) Appearance (test code Clear Clear = 5767-9) WBC Esterase (test Negative Negative code = 5799-2) Protein (test code = Trace Negative/Trace 56037-1) Glucose (test code = Negative Negative 06521-7) Ketones (test code = Negative Negative 2514-8) Occult Blood (test Negative Negative code = 5794-3) Bilirubin (test code = Negative Negative 5770-3) Urobilinogen,Semi-Qn 1.0 mg/dL 0.2-1.0 (test code = 10378-2) Nitrite, Urine (test Negative Negative code = 5802-4) Microscopic See below: Microscopic was Examination (test code indic ated and was = 83956-4) performed.Perfo rmed by:[employer] ([employer]) [facility] Description: Urinalysis, Lxfxhtvy1655-26-37 14:53:00 Test Item Value Reference Range Interpretation Comments Specific [place] (test 1.023 1.005-1.030 code = 5811-5) pH (test code = 6.0 5.0-7.5 5803-2) Urine-Color (test code Yellow Yellow = 5778-6) Appearance (test code Clear Clear = 5767-9) WBC Esterase (test Negative Negative code = 5799-2) Protein (test code = Trace Negative/Trace 73558-5) Glucose (test code = Negative Negative 68496-6) Ketones (test code = Negative Negative 2514-8) Occult Blood (test Negative Negative code = 5794-3) Bilirubin (test code = Negative Negative 5770-3) Urobilinogen,Semi-Qn 1.0 mg/dL 0.2-1.0 (test code = 29954-1) Nitrite, Urine (test Negative Negative code = 5802-4) Microscopic See below: Microscopic was Examination (test code indic ated and was = 05816-1) performed.Perfo rmed by:[employer] ([place]) [facility] Description: Urinalysis, [id number] 14:53:00 Test Item Value Reference Range Interpretation Comments Specific [place] (test 1.023 1.005-1.030 code = 5811-5) pH (test code = 6.0 5.0-7.5 5803-2) Urine-Color (test code Yellow Yellow = 5778-6) Appearance (test code Clear Clear = 5767-9) WBC Esterase (test Negative Negative code = 5799-2) Protein (test code = Trace Negative/Trace 62673-0) Glucose (test code = Negative Negative 85123-8) Ketones (test code = Negative Negative 2514-8) Occult Blood (test Negative Negative code = 5794-3) Bilirubin (test code = Negative Negative 5770-3) Urobilinogen,Semi-Qn 1.0 mg/dL 0.2-1.0 (test code = 82060-3) Nitrite, Urine (test Negative Negative code = 5802-4) Microscopic See below: Microscopic was Examination (test code indic ated and was = 16631-7) performed.Perfo rmed by:[employer] ([place]) [facility] Description: Urinalysis, Isiqfqua4398-93-82 14:53:00 Test Item Value Reference Range Interpretation Comments Specific [place] (test 1.023 1.005-1.030 code = 5811-5) pH (test code = 6.0 5.0-7.5 5803-2) Urine-Color (test code Yellow Yellow = 5778-6) Appearance (test code Clear Clear = 5767-9) WBC Esterase (test Negative Negative code = 5799-2) Protein (test code = Trace Negative/Trace 87967-0) Glucose (test code = Negative Negative 92444-3) Ketones (test code = Negative Negative 2514-8) Occult Blood (test Negative Negative code = 5794-3) Bilirubin (test code = Negative Negative 5770-3) Urobilinogen,Semi-Qn 1.0 mg/dL 0.2-1.0 (test code = 07298-8) Nitrite, Urine (test Negative Negative code = 5802-4) Microscopic See below: Microscopic was Examination (test code indic ated and was = 05738-8) performed.Perfo rmed by:[employer] ([place]) [facility] Description: Urinalysis, [id number] 14:53:00 Test Item Value Reference Range Interpretation Comments Specific [place] (test 1.023 1.005-1.030 code = 5811-5) pH (test code = 6.0 5.0-7.5 5803-2) Urine-Color (test code Yellow Yellow = 5778-6) Appearance (test code Clear Clear = 5767-9) WBC Esterase (test Negative Negative code = 5799-2) Protein (test code = Trace Negative/Trace 04416-3) Glucose (test code = Negative Negative 55557-1) Ketones (test code = Negative Negative 2514-8) Occult Blood (test Negative Negative code = 5794-3) Bilirubin (test code = Negative Negative 5770-3) Urobilinogen,Semi-Qn 1.0 mg/dL 0.2-1.0 (test code = 60770-4) Nitrite, Urine (test Negative Negative code = 5802-4) Microscopic See below: Microscopic was Examination (test code indic ated and was = 09935-3) performed.Perfo rmed by:[employer] ([facility]) [facility] Description: Urinalysis, [id number] 14:53:00 Test Item Value Reference Range Interpretation Comments Specific [place] (test 1.023 1.005-1.030 code = 5811-5) pH (test code = 6.0 5.0-7.5 5803-2) Urine-Color (test code Yellow Yellow = 5778-6) Appearance (test code Clear Clear = 5767-9) WBC Esterase (test Negative Negative code = 5799-2) Protein (test code = Trace Negative/Trace 89861-0) Glucose (test code = Negative Negative 08633-7) Ketones (test code = Negative Negative 2514-8) Occult Blood (test Negative Negative code = 5794-3) Bilirubin (test code = Negative Negative 5770-3) Urobilinogen,Semi-Qn 1.0 mg/dL 0.2-1.0 (test code = 75447-8) Nitrite, Urine (test Negative Negative code = 5802-4) Microscopic See below: Microscopic was Examination (test code indic ated and was = 95494-5) performed.Perfo rmed by:[employer] ([employer]) [facility] Description: Urinalysis, [id number] 14:53:00 Test Item Value Reference Range Interpretation Comments Specific [place] (test 1.023 1.005-1.030 code = 5811-5) pH (test code = 6.0 5.0-7.5 5803-2) Urine-Color (test code Yellow Yellow = 5778-6) Appearance (test code Clear Clear = 5767-9) WBC Esterase (test Negative Negative code = 5799-2) Protein (test code = Trace Negative/Trace 34828-8) Glucose (test code = Negative Negative 22629-5) Ketones (test code = Negative Negative 2514-8) Occult Blood (test Negative Negative code = 5794-3) Bilirubin (test code = Negative Negative 5770-3) Urobilinogen,Semi-Qn 1.0 mg/dL 0.2-1.0 (test code = 96623-4) Nitrite, Urine (test Negative Negative code = 5802-4) Microscopic See below: Microscopic was Examination (test code indic ated and was = 74814-7) performed.Perfo rmed by:Deann darden ([employer]) [facility] Description: Urinalysis, [id number] 14:53:00 Test Item Value Reference Range Interpretation Comments Specific [place] (test 1.023 1.005-1.030 code = 5811-5) pH (test code = 6.0 5.0-7.5 5803-2) Urine-Color (test code Yellow Yellow = 5778-6) Appearance (test code Clear Clear = 5767-9) WBC Esterase (test Negative Negative code = 5799-2) Protein (test code = Trace Negative/Trace 43194-2) Glucose (test code = Negative Negative 72272-3) Ketones (test code = Negative Negative 2514-8) Occult Blood (test Negative Negative code = 5794-3) Bilirubin (test code = Negative Negative 5770-3) Urobilinogen,Semi-Qn 1.0 mg/dL 0.2-1.0 (test code = 00226-1) Nitrite, Urine (test Negative Negative code = 5802-4) Microscopic See below: Microscopic was Examination (test code indic ated and was = 50838-0) performed.Perfo rmed by:[employer] Con[employer] (HD) [facility] Description: Urinalysis, [id number] 14:53:00 Test Item Value Reference Range Interpretation Comments Specific [place] (test 1.023 1.005-1.030 code = 5811-5) pH (test code = 6.0 5.0-7.5 5803-2) Urine-Color (test code Yellow Yellow = 5778-6) Appearance (test code Clear Clear = 5767-9) WBC Esterase (test Negative Negative code = 5799-2) Protein (test code = Trace Negative/Trace 92311-6) Glucose (test code = Negative Negative 98364-1) Ketones (test code = Negative Negative 2514-8) Occult Blood (test Negative Negative code = 5794-3) Bilirubin (test code = Negative Negative 5770-3) Urobilinogen,Semi-Qn 1.0 mg/dL 0.2-1.0 (test code = 48407-0) Nitrite, Urine (test Negative Negative code = 5802-4) Microscopic See below: Microscopic was Examination (test code indic ated and was = 12807-3) performed.Perfo rmed by:Deann Condon [employer] ([employer]) [facility] Description: Urinalysis, [id number] 14:53:00 Test Item Value Reference Range Interpretation Comments Specific [place] (test 1.023 1.005-1.030 code = 5811-5) pH (test code = 6.0 5.0-7.5 5803-2) Urine-Color (test code Yellow Yellow = 5778-6) Appearance (test code Clear Clear = 5767-9) WBC Esterase (test Negative Negative code = 5799-2) Protein (test code = Trace Negative/Trace 23461-9) Glucose (test code = Negative Negative 47616-7) Ketones (test code = Negative Negative 2514-8) Occult Blood (test Negative Negative code = 5794-3) Bilirubin (test code = Negative Negative 5770-3) Urobilinogen,Semi-Qn 1.0 mg/dL 0.2-1.0 (test code = 79457-9) Nitrite, Urine (test Negative Negative code = 5802-4) Microscopic See below: Microscopic was Examination (test code indic ated and was = 93809-2) performed.Perfo rmed by:[employer] ([facility]) [facility] Description: Urinalysis, [id number] 14:53:00 Test Item Value Reference Range Interpretation Comments Specific [place] (test 1.023 1.005-1.030 code = 5811-5) pH (test code = 6.0 5.0-7.5 5803-2) Urine-Color (test code Yellow Yellow = 5778-6) Appearance (test code Clear Clear = 5767-9) WBC Esterase (test Negative Negative code = 5799-2) Protein (test code = Trace Negative/Trace 59549-0) Glucose (test code = Negative Negative 23439-7) Ketones (test code = Negative Negative 2514-8) Occult Blood (test Negative Negative code = 5794-3) Bilirubin (test code = Negative Negative 5770-3) Urobilinogen,Semi-Qn 1.0 mg/dL 0.2-1.0 (test code = 52485-9) Nitrite, Urine (test Negative Negative code = 5802-4) Microscopic See below: Microscopic was Examination (test code indic ated and was = 23254-8) performed.Perfo rmed by:PlacesterSabina Convo () [facility] Description: Urinalysis, [id number] 14:53:00 Test Item Value Reference Range Interpretation Comments Specific [place] (test 1.023 1.005-1.030 code = 5811-5) pH (test code = 6.0 5.0-7.5 5803-2) Urine-Color (test code Yellow Yellow = 5778-6) Appearance (test code Clear Clear = 5767-9) WBC Esterase (test Negative Negative code = 5799-2) Protein (test code = Trace Negative/Trace 29371-4) Glucose (test code = Negative Negative 98154-9) Ketones (test code = Negative Negative 2514-8) Occult Blood (test Negative Negative code = 5794-3) Bilirubin (test code = Negative Negative 5770-3) Urobilinogen,Semi-Qn 1.0 mg/dL 0.2-1.0 (test code = 62882-5) Nitrite, Urine (test Negative Negative code = 5802-4) Microscopic See below: Microscopic was Examination (test code indic ated and was = 75074-7) performed.Perfo rmed by:[employer] (HD) [facility] Description: Urinalysis, [id number] 14:53:00 Test Item Value Reference Range Interpretation Comments Specific [place] (test 1.023 1.005-1.030 code = 5811-5) pH (test code = 6.0 5.0-7.5 5803-2) Urine-Color (test code Yellow Yellow = 5778-6) Appearance (test code Clear Clear = 5767-9) WBC Esterase (test Negative Negative code = 5799-2) Protein (test code = Trace Negative/Trace 29570-0) Glucose (test code = Negative Negative 26722-9) Ketones (test code = Negative Negative 2514-8) Occult Blood (test Negative Negative code = 5794-3) Bilirubin (test code = Negative Negative 5770-3) Urobilinogen,Semi-Qn 1.0 mg/dL 0.2-1.0 (test code = 58637-4) Nitrite, Urine (test Negative Negative code = 5802-4) Microscopic See below: Microscopic was Examination (test code indic ated and was = 17778-3) performed.Perfo rmed by:[employer] ([facility]) [facility] Description: Urinalysis, [id number] 14:53:00 Test Item Value Reference Range Interpretation Comments Specific [place] (test 1.023 1.005-1.030 code = 5811-5) pH (test code = 6.0 5.0-7.5 5803-2) Urine-Color (test code Yellow Yellow = 5778-6) Appearance (test code Clear Clear = 5767-9) WBC Esterase (test Negative Negative code = 5799-2) Protein (test code = Trace Negative/Trace 14614-8) Glucose (test code = Negative Negative 47654-5) Ketones (test code = Negative Negative 2514-8) Occult Blood (test Negative Negative code = 5794-3) Bilirubin (test code = Negative Negative 5770-3) Urobilinogen,Semi-Qn 1.0 mg/dL 0.2-1.0 (test code = 68289-8) Nitrite, Urine (test Negative Negative code = 5802-4) Microscopic See below: Microscopic was Examination (test code indic tegan and was = 59176-2) performed.Perfo rmed by:[facility] Roseanna darden (HD) [facility] Description: Rheumatoid factor [Units/volume] in Serum or [id number] 14:50:00 Test Item Value Reference Range Interpretation Comments Rheumatoid Factor (RF) (test code 15.3 IU/mL <14.0 H = 68726-2) [facility] Description: Rheumatoid factor [Units/volume] in Serum or [id number] 14:50:00 Test Item Value Reference Range Interpretation Comments Rheumatoid Factor (RF) (test code 15.3 IU/mL <14.0 H = 91100-8) [facility] Description: Rheumatoid factor [Units/volume] in Serum or [id number] 14:50:00 Test Item Value Reference Range Interpretation Comments Rheumatoid Factor (RF) (test code 15.3 IU/mL <14.0 H = 32311-3) [facility] Description: Rheumatoid factor [Units/volume] in Serum or [id number] 14:50:00 Test Item Value Reference Range Interpretation Comments Rheumatoid Factor (RF) (test code 15.3 IU/mL <14.0 H = 15451-5) [facility] Description: Rheumatoid factor [Units/volume] in Serum or [id number] 14:50:00 Test Item Value Reference Range Interpretation Comments Rheumatoid Factor (RF) (test code 15.3 IU/mL <14.0 H = 27139-5) [facility] Description: Rheumatoid factor [Units/volume] in Serum or [id number] 14:50:00 Test Item Value Reference Range Interpretation Comments Rheumatoid Factor (RF) (test code 15.3 IU/mL <14.0 H = 02759-2) [facility] Description: Rheumatoid factor [Units/volume] in Serum or [id number] 14:50:00 Test Item Value Reference Range Interpretation Comments Rheumatoid Factor (RF) (test code 15.3 IU/mL <14.0 H = 44245-3) [facility] Description: Rheumatoid factor [Units/volume] in Serum or [id number] 14:50:00 Test Item Value Reference Range Interpretation Comments Rheumatoid Factor (RF) (test code 15.3 IU/mL <14.0 H = 55421-0) [facility] Description: Rheumatoid factor [Units/volume] in Serum or [id number] 14:50:00 Test Item Value Reference Range Interpretation Comments Rheumatoid Factor (RF) (test code 15.3 IU/mL <14.0 H = 24810-4) [facility] Description: Rheumatoid factor [Units/volume] in Serum or [id number] 14:50:00 Test Item Value Reference Range Interpretation Comments Rheumatoid Factor (RF) (test code 15.3 IU/mL <14.0 H = 24796-4) [facility] Description: Rheumatoid factor [Units/volume] in Serum or [id number] 14:50:00 Test Item Value Reference Range Interpretation Comments Rheumatoid Factor (RF) (test code 15.3 IU/mL <14.0 H = 94061-4) [facility] Description: Rheumatoid factor [Units/volume] in Serum or [id number] 14:50:00 Test Item Value Reference Range Interpretation Comments Rheumatoid Factor (RF) (test code 15.3 IU/mL <14.0 H = 54607-4) [facility] Description: Rheumatoid factor [Units/volume] in Serum or [id number] 14:50:00 Test Item Value Reference Range Interpretation Comments Rheumatoid Factor (RF) (test code 15.3 IU/mL <14.0 H = 77446-3) [facility] Description: Rheumatoid factor [Units/volume] in Serum or [id number] 14:50:00 Test Item Value Reference Range Interpretation Comments Rheumatoid Factor (RF) (test code 15.3 IU/mL <14.0 H = 26751-6) [facility] Description: Rheumatoid factor [Units/volume] in Serum or [id number] 14:50:00 Test Item Value Reference Range Interpretation Comments Rheumatoid Factor (RF) (test code 15.3 IU/mL <14.0 H = 21657-6) [facility] Description: Rheumatoid factor [Units/volume] in Serum or [id number] 14:50:00 Test Item Value Reference Range Interpretation Comments Rheumatoid Factor (RF) (test code 15.3 IU/mL <14.0 H = 95243-8) [facility] Description: Rheumatoid factor [Units/volume] in Serum or [id number] 14:50:00 Test Item Value Reference Range Interpretation Comments Rheumatoid Factor (RF) (test code 15.3 IU/mL <14.0 H = 15281-0) [facility] Description: Rheumatoid factor [Units/volume] in Serum or [id number] 14:50:00 Test Item Value Reference Range Interpretation Comments Rheumatoid Factor (RF) (test code 15.3 IU/mL <14.0 H = 39707-9) [facility] Description: Rheumatoid factor [Units/volume] in Serum or [id number] 14:50:00 Test Item Value Reference Range Interpretation Comments Rheumatoid Factor (RF) (test code 15.3 IU/mL <14.0 H = 72867-9) [facility] Description: Rheumatoid factor [Units/volume] in Serum or [id number] 14:50:00 Test Item Value Reference Range Interpretation Comments Rheumatoid Factor (RF) (test code 15.3 IU/mL <14.0 H = 02901-3) [facility] Description: Rheumatoid factor [Units/volume] in Serum or [id number] 14:50:00 Test Item Value Reference Range Interpretation Comments Rheumatoid Factor (RF) (test code 15.3 IU/mL <14.0 H = 12026-4) [facility] Description: Rheumatoid factor [Units/volume] in Serum or [id number] 14:50:00 Test Item Value Reference Range Interpretation Comments Rheumatoid Factor (RF) (test code 15.3 IU/mL <14.0 H = 73286-4) [facility] Description: RPR, Rfx Qn RPR/Confirm [id number] 11:58:00 Test Item Value Reference Range Interpretation Comments RPR (test code = 06214-9) Non Reactive Non Reactive [facility] Description: RPR, Rfx Qn RPR/Confirm [id number] 11:58:00 Test Item Value Reference Range Interpretation Comments RPR (test code = 13514-5) Non Reactive Non Reactive [facility] Description: RPR, Rfx Qn RPR/Confirm [id number] 11:58:00 Test Item Value Reference Range Interpretation Comments RPR (test code = 74815-6) Non Reactive Non Reactive [facility] Description: RPR, Rfx Qn RPR/Confirm [id number] 11:58:00 Test Item Value Reference Range Interpretation Comments RPR (test code = 85331-9) Non Reactive Non Reactive [facility] Description: RPR, Rfx Qn RPR/Confirm [id number] 11:58:00 Test Item Value Reference Range Interpretation Comments RPR (test code = 71273-4) Non Reactive Non Reactive [facility] Description: RPR, Rfx Qn RPR/Confirm [id number] 11:58:00 Test Item Value Reference Range Interpretation Comments RPR (test code = 77703-5) Non Reactive Non Reactive [facility] Description: RPR, Rfx Qn RPR/Confirm [id number] 11:58:00 Test Item Value Reference Range Interpretation Comments RPR (test code = 46959-6) Non Reactive Non Reactive [facility] Description: RPR, Rfx Qn RPR/Confirm [id number] 11:58:00 Test Item Value Reference Range Interpretation Comments RPR (test code = 76990-8) Non Reactive Non Reactive [facility] Description: RPR, Rfx Qn RPR/Confirm [id number] 11:58:00 Test Item Value Reference Range Interpretation Comments RPR (test code = 70868-1) Non Reactive Non Reactive [facility] Description: RPR, Rfx Qn RPR/Confirm [id number] 11:58:00 Test Item Value Reference Range Interpretation Comments RPR (test code = 06043-4) Non Reactive Non Reactive [facility] Description: RPR, Rfx Qn RPR/Confirm [id number] 11:58:00 Test Item Value Reference Range Interpretation Comments RPR (test code = 78223-3) Non Reactive Non Reactive [facility] Description: RPR, Rfx Qn RPR/Confirm [id number] 11:58:00 Test Item Value Reference Range Interpretation Comments RPR (test code = 56983-4) Non Reactive Non Reactive [facility] Description: RPR, Rfx Qn RPR/Confirm [id number] 11:58:00 Test Item Value Reference Range Interpretation Comments RPR (test code = 60601-4) Non Reactive Non Reactive [facility] Description: RPR, Rfx Qn RPR/Confirm [id number] 11:58:00 Test Item Value Reference Range Interpretation Comments RPR (test code = 15898-5) Non Reactive Non Reactive [facility] Description: RPR, Rfx Qn RPR/Confirm [id number] 11:58:00 Test Item Value Reference Range Interpretation Comments RPR (test code = 14843-2) Non Reactive Non Reactive [facility] Description: RPR, Rfx Qn RPR/Confirm [id number] 11:58:00 Test Item Value Reference Range Interpretation Comments RPR (test code = 61859-4) Non Reactive Non Reactive [facility] Description: RPR, Rfx Qn RPR/Confirm [id number] 11:58:00 Test Item Value Reference Range Interpretation Comments RPR (test code = 27417-3) Non Reactive Non Reactive [facility] Description: RPR, Rfx Qn RPR/Confirm [id number] 11:58:00 Test Item Value Reference Range Interpretation Comments RPR (test code = 05009-3) Non Reactive Non Reactive [facility] Description: RPR, Rfx Qn RPR/Confirm [id number] 11:58:00 Test Item Value Reference Range Interpretation Comments RPR (test code = 50472-1) Non Reactive Non Reactive [facility] Description: RPR, Rfx Qn RPR/Confirm [id number] 11:58:00 Test Item Value Reference Range Interpretation Comments RPR (test code = 57888-2) Non Reactive Non Reactive [facility] Description: RPR, Rfx Qn RPR/Confirm [id number] 11:58:00 Test Item Value Reference Range Interpretation Comments RPR (test code = 76664-0) Non Reactive Non Reactive [facility] Description: RPR, Rfx Qn RPR/Confirm [id number] 11:58:00 Test Item Value Reference Range Interpretation Comments RPR (test code = 50550-3) Non Reactive Non Reactive [facility] Description: Comp. Metabolic Panel (14)2022-09-03 11:13:00 Test Item Value Reference Range Interpretation Comments Glucose (test code = 2345-7) 112 mg/dL 70-99 H BUN (test code = 3094-0) 6 mg/dL 6-24 Creatinine (test code = 0.57 mg/dL 0.57-1.00 2160-0) eGFR (test code = 12101-0) 105 mL/min/1.73 >59 BUN/Creatinine Ratio (test 11 9-23 code = 3097-3) Sodium (test code = 2951-2) 147 mmol/L 134-144 H Potassium (test code = 3.8 mmol/L 3.5-5.2 2823-3) Chloride (test code = 5-0) 104 mmol/L 96-106 Carbon Dioxide, Total (test 23 mmol/L 20-29 code = 2027-9) Calcium (test code = 98641-7) 9.8 mg/dL 8.7-10.2 Protein, Total (test code = 7.0 g/dL 6.0-8.5 2885-2) Albumin (test code = 1751-7) 4.8 g/dL 3.8-4.9 Globulin, Total (test code = 2.2 g/dL 1.5-4.5 42523-0) A/G Ratio (test code = 2.2 1.2-2.2 1759-0) Bilirubin, Total (test code = 0.4 mg/dL 0.0-1.2 1975-2) Alkaline Phosphatase (test 177 IU/L 44-121 H code = 6768-6) AST (SGOT) (test code = 102 IU/L 0-40 H 1920-8) ALT (SGPT) (test code = 55 IU/L 0-32 H 1742-6) [facility] Description: Lipid [id number] 11:13:00 Test Item Value Reference Range Interpretation Comments Cholesterol, Total (test code = 299 mg/dL 100-199 H 2093-3) Triglycerides (test code = 2571-8) 501 mg/dL 0-149 H HDL Cholesterol (test code = 99 mg/dL >39 2085-9) VLDL Cholesterol Chao (test code = 86 mg/dL 5-40 H 87315-1) LDL Chol Calc (NIH) (test code = 114 mg/dL 0-99 H 11377-2) Comment: (test code = 05214-8) [facility] Description: Comp. Metabolic Panel (14)2022-09-03 11:13:00 Test Item Value Reference Range Interpretation Comments Glucose (test code = 2345-7) 112 mg/dL 70-99 H BUN (test code = 3094-0) 6 mg/dL 6-24 Creatinine (test code = 0.57 mg/dL 0.57-1.00 2160-0) eGFR (test code = 67587-4) 105 mL/min/1.73 >59 BUN/Creatinine Ratio (test 11 9-23 code = 3097-3) Sodium (test code = 2951-2) 147 mmol/L 134-144 H Potassium (test code = 3.8 mmol/L 3.5-5.2 2823-3) Chloride (test code = 2075-0) 104 mmol/L 96-106 Carbon Dioxide, Total (test 23 mmol/L 20-29 code = 8-9) Calcium (test code = 97910-5) 9.8 mg/dL 8.7-10.2 Protein, Total (test code = 7.0 g/dL 6.0-8.5 2885-2) Albumin (test code = 1751-7) 4.8 g/dL 3.8-4.9 Globulin, Total (test code = 2.2 g/dL 1.5-4.5 30597-2) A/G Ratio (test code = 2.2 1.2-2.2 1759-0) Bilirubin, Total (test code = 0.4 mg/dL 0.0-1.2 1975-2) Alkaline Phosphatase (test 177 IU/L 44-121 H code = 6768-6) AST (SGOT) (test code = 102 IU/L 0-40 H 1920-8) ALT (SGPT) (test code = 55 IU/L 0-32 H 1742-6) [facility] Description: Lipid [id number] 11:13:00 Test Item Value Reference Range Interpretation Comments Cholesterol, Total (test code = 299 mg/dL 100-199 H 2093-3) Triglycerides (test code = 2571-8) 501 mg/dL 0-149 H HDL Cholesterol (test code = 99 mg/dL >39 2084-9) VLDL Cholesterol Chao (test code = 86 mg/dL 5-40 H 61109-4) LDL Chol Calc (NIH) (test code = 114 mg/dL 0-99 H 55328-9) Comment: (test code = 94283-1) [facility] Description: Comp. Metabolic Panel (14)2022-09-03 11:13:00 Test Item Value Reference Range Interpretation Comments Glucose (test code = 2345-7) 112 mg/dL 70-99 H BUN (test code = 3094-0) 6 mg/dL 6-24 Creatinine (test code = 0.57 mg/dL 0.57-1.00 2160-0) eGFR (test code = 73484-3) 105 mL/min/1.73 >59 BUN/Creatinine Ratio (test 11 -23 code = 3097-3) Sodium (test code = 2951-2) 147 mmol/L 134-144 H Potassium (test code = 3.8 mmol/L 3.5-5.2 2823-3) Chloride (test code = 2075-0) 104 mmol/L 96-106 Carbon Dioxide, Total (test 23 mmol/L 20-29 code = 2027-9) Calcium (test code = 87892-4) 9.8 mg/dL 8.7-10.2 Protein, Total (test code = 7.0 g/dL 6.0-8.5 2885-2) Albumin (test code = 1751-7) 4.8 g/dL 3.8-4.9 Globulin, Total (test code = 2.2 g/dL 1.5-4.5 20434-9) A/G Ratio (test code = 2.2 1.2-2.2 1759-0) Bilirubin, Total (test code = 0.4 mg/dL 0.0-1.2 1975-2) Alkaline Phosphatase (test 177 IU/L 44-121 H code = 6768-6) AST (SGOT) (test code = 102 IU/L 0-40 H 1920-8) ALT (SGPT) (test code = 55 IU/L 0-32 H 1742-6) [facility] Description: Lipid [id number] 11:13:00 Test Item Value Reference Range Interpretation Comments Cholesterol, Total (test code = 299 mg/dL 100-199 H 2093-3) Triglycerides (test code = 2571-8) 501 mg/dL 0-149 H HDL Cholesterol (test code = 99 mg/dL >39 5-9) VLDL Cholesterol Chao (test code = 86 mg/dL 5-40 H 50509-7) LDL Chol Calc (NIH) (test code = 114 mg/dL 0-99 H 60912-4) Comment: (test code = 90201-6) [facility] Description: Comp. Metabolic Panel (14)2022-09-03 11:13:00 Test Item Value Reference Range Interpretation Comments Glucose (test code = 2345-7) 112 mg/dL 70-99 H BUN (test code = 3094-0) 6 mg/dL 6-24 Creatinine (test code = 0.57 mg/dL 0.57-1.00 2160-0) eGFR (test code = 97923-3) 105 mL/min/1.73 >59 BUN/Creatinine Ratio (test 11 9-23 code = 3097-3) Sodium (test code = 2951-2) 147 mmol/L 134-144 H Potassium (test code = 3.8 mmol/L 3.5-5.2 2823-3) Chloride (test code = 2075-0) 104 mmol/L 96-106 Carbon Dioxide, Total (test 23 mmol/L 20-29 code = 8-9) Calcium (test code = 44230-4) 9.8 mg/dL 8.7-10.2 Protein, Total (test code = 7.0 g/dL 6.0-8.5 2885-2) Albumin (test code = 1751-7) 4.8 g/dL 3.8-4.9 Globulin, Total (test code = 2.2 g/dL 1.5-4.5 06569-4) A/G Ratio (test code = 2.2 1.2-2.2 1759-0) Bilirubin, Total (test code = 0.4 mg/dL 0.0-1.2 1975-2) Alkaline Phosphatase (test 177 IU/L 44-121 H code = 6768-6) AST (SGOT) (test code = 102 IU/L 0-40 H 1920-8) ALT (SGPT) (test code = 55 IU/L 0-32 H 1742-6) [facility] Description: Lipid [id number] 11:13:00 Test Item Value Reference Range Interpretation Comments Cholesterol, Total (test code = 299 mg/dL 100-199 H 2093-3) Triglycerides (test code = 2571-8) 501 mg/dL 0-149 H HDL Cholesterol (test code = 99 mg/dL >39 5-9) VLDL Cholesterol Chao (test code = 86 mg/dL 5-40 H 20759-1) LDL Chol Calc (NIH) (test code = 114 mg/dL 0-99 H 54168-1) Comment: (test code = 76731-7) [facility] Description: Comp. Metabolic Panel (14)2022-09-03 11:13:00 Test Item Value Reference Range Interpretation Comments Glucose (test code = 2345-7) 112 mg/dL 70-99 H BUN (test code = 3094-0) 6 mg/dL 6-24 Creatinine (test code = 0.57 mg/dL 0.57-1.00 2160-0) eGFR (test code = 04187-1) 105 mL/min/1.73 >59 BUN/Creatinine Ratio (test 11 9-23 code = 3097-3) Sodium (test code = 2951-2) 147 mmol/L 134-144 H Potassium (test code = 3.8 mmol/L 3.5-5.2 2823-3) Chloride (test code = 2075-0) 104 mmol/L 96-106 Carbon Dioxide, Total (test 23 mmol/L 20-29 code = 2027-9) Calcium (test code = 66503-6) 9.8 mg/dL 8.7-10.2 Protein, Total (test code = 7.0 g/dL 6.0-8.5 2885-2) Albumin (test code = 1751-7) 4.8 g/dL 3.8-4.9 Globulin, Total (test code = 2.2 g/dL 1.5-4.5 78061-5) A/G Ratio (test code = 2.2 1.2-2.2 1759-0) Bilirubin, Total (test code = 0.4 mg/dL 0.0-1.2 1975-2) Alkaline Phosphatase (test 177 IU/L 44-121 H code = 6768-6) AST (SGOT) (test code = 102 IU/L 0-40 H 1920-8) ALT (SGPT) (test code = 55 IU/L 0-32 H 1742-6) [facility] Description: Lipid [id number] 11:13:00 Test Item Value Reference Range Interpretation Comments Cholesterol, Total (test code = 299 mg/dL 100-199 H 2093-3) Triglycerides (test code = 2571-8) 501 mg/dL 0-149 H HDL Cholesterol (test code = 99 mg/dL >39 5-9) VLDL Cholesterol Chao (test code = 86 mg/dL 5-40 H 88996-0) LDL Chol Calc (NIH) (test code = 114 mg/dL 0-99 H 64178-4) Comment: (test code = 32820-9) [facility] Description: Comp. Metabolic Panel (14)2022-09-03 11:13:00 Test Item Value Reference Range Interpretation Comments Glucose (test code = 2345-7) 112 mg/dL 70-99 H BUN (test code = 3094-0) 6 mg/dL 6-24 Creatinine (test code = 0.57 mg/dL 0.57-1.00 2160-0) eGFR (test code = 91761-3) 105 mL/min/1.73 >59 BUN/Creatinine Ratio (test 11 - code = 3097-3) Sodium (test code = 2951-2) 147 mmol/L 134-144 H Potassium (test code = 3.8 mmol/L 3.5-5.2 2823-3) Chloride (test code = 2075-0) 104 mmol/L 96-106 Carbon Dioxide, Total (test 23 mmol/L 20-29 code = 2027-9) Calcium (test code = 86914-7) 9.8 mg/dL 8.7-10.2 Protein, Total (test code = 7.0 g/dL 6.0-8.5 2885-2) Albumin (test code = 1751-7) 4.8 g/dL 3.8-4.9 Globulin, Total (test code = 2.2 g/dL 1.5-4.5 61437-7) A/G Ratio (test code = 2.2 1.2-2.2 1759-0) Bilirubin, Total (test code = 0.4 mg/dL 0.0-1.2 1975-2) Alkaline Phosphatase (test 177 IU/L 44-121 H code = 6768-6) AST (SGOT) (test code = 102 IU/L 0-40 H 1920-8) ALT (SGPT) (test code = 55 IU/L 0-32 H 1742-6) [facility] Description: Lipid [id number] 11:13:00 Test Item Value Reference Range Interpretation Comments Cholesterol, Total (test code = 299 mg/dL 100-199 H 2093-3) Triglycerides (test code = 2571-8) 501 mg/dL 0-149 H HDL Cholesterol (test code = 99 mg/dL >39 2084-9) VLDL Cholesterol Chao (test code = 86 mg/dL 5-40 H 15432-4) LDL Chol Calc (NIH) (test code = 114 mg/dL 0-99 H 26803-7) Comment: (test code = 13838-5) [facility] Description: Comp. Metabolic Panel (14)2022-09-03 11:13:00 Test Item Value Reference Range Interpretation Comments Glucose (test code = 2345-7) 112 mg/dL 70-99 H BUN (test code = 3094-0) 6 mg/dL 6-24 Creatinine (test code = 0.57 mg/dL 0.57-1.00 2160-0) eGFR (test code = 96541-9) 105 mL/min/1.73 >59 BUN/Creatinine Ratio (test 11 - code = 3097-3) Sodium (test code = 2951-2) 147 mmol/L 134-144 H Potassium (test code = 3.8 mmol/L 3.5-5.2 2823-3) Chloride (test code = 2075-0) 104 mmol/L 96-106 Carbon Dioxide, Total (test 23 mmol/L 20-29 code = 2028-9) Calcium (test code = 98215-3) 9.8 mg/dL 8.7-10.2 Protein, Total (test code = 7.0 g/dL 6.0-8.5 2885-2) Albumin (test code = 1751-7) 4.8 g/dL 3.8-4.9 Globulin, Total (test code = 2.2 g/dL 1.5-4.5 43723-6) A/G Ratio (test code = 2.2 1.2-2.2 1759-0) Bilirubin, Total (test code = 0.4 mg/dL 0.0-1.2 1975-2) Alkaline Phosphatase (test 177 IU/L 44-121 H code = 6768-6) AST (SGOT) (test code = 102 IU/L 0-40 H 1920-8) ALT (SGPT) (test code = 55 IU/L 0-32 H 1742-6) [facility] Description: Lipid [id number] 11:13:00 Test Item Value Reference Range Interpretation Comments Cholesterol, Total (test code = 299 mg/dL 100-199 H 2092-3) Triglycerides (test code = 2571-8) 501 mg/dL 0-149 H HDL Cholesterol (test code = 99 mg/dL >39 2084-9) VLDL Cholesterol Chao (test code = 86 mg/dL 5-40 H 64211-9) LDL Chol Calc (NIH) (test code = 114 mg/dL 0-99 H 66390-0) Comment: (test code = 73738-9) [facility] Description: Comp. Metabolic Panel (14)2022-09-03 11:13:00 Test Item Value Reference Range Interpretation Comments Glucose (test code = 2345-7) 112 mg/dL 70-99 H BUN (test code = 3094-0) 6 mg/dL 6-24 Creatinine (test code = 0.57 mg/dL 0.57-1.00 2160-0) eGFR (test code = 19314-2) 105 mL/min/1.73 >59 BUN/Creatinine Ratio (test 11 05-14 code = 3097-3) Sodium (test code = 2951-2) 147 mmol/L 134-144 H Potassium (test code = 3.8 mmol/L 3.5-5.2 2823-3) Chloride (test code = 2075-0) 104 mmol/L 96-106 Carbon Dioxide, Total (test 23 mmol/L 20-29 code = 2027-9) Calcium (test code = 51654-6) 9.8 mg/dL 8.7-10.2 Protein, Total (test code = 7.0 g/dL 6.0-8.5 2885-2) Albumin (test code = 1751-7) 4.8 g/dL 3.8-4.9 Globulin, Total (test code = 2.2 g/dL 1.5-4.5 94225-1) A/G Ratio (test code = 2.2 1.2-2.2 1759-0) Bilirubin, Total (test code = 0.4 mg/dL 0.0-1.2 1974-2) Alkaline Phosphatase (test 177 IU/L 44-121 H code = 6768-6) AST (SGOT) (test code = 102 IU/L 0-40 H 1920-8) ALT (SGPT) (test code = 55 IU/L 0-32 H 1742-6) [facility] Description: Lipid [id number] 11:13:00 Test Item Value Reference Range Interpretation Comments Cholesterol, Total (test code = 299 mg/dL 100-199 H 2092-3) Triglycerides (test code = 2571-8) 501 mg/dL 0-149 H HDL Cholesterol (test code = 99 mg/dL >39 2084-9) VLDL Cholesterol Chao (test code = 86 mg/dL 5-40 H 32624-3) LDL Chol Calc (NIH) (test code = 114 mg/dL 0-99 H 06111-6) Comment: (test code = 03956-2) [facility] Description: Comp. Metabolic Panel (14)2022-09-03 11:13:00 Test Item Value Reference Range Interpretation Comments Glucose (test code = 2345-7) 112 mg/dL 70-99 H BUN (test code = 3094-0) 6 mg/dL 6-24 Creatinine (test code = 0.57 mg/dL 0.57-1.00 2160-0) eGFR (test code = 67099-5) 105 mL/min/1.73 >59 BUN/Creatinine Ratio (test 11 9-23 code = 3097-3) Sodium (test code = 2951-2) 147 mmol/L 134-144 H Potassium (test code = 3.8 mmol/L 3.5-5.2 2823-3) Chloride (test code = 2075-0) 104 mmol/L 96-106 Carbon Dioxide, Total (test 23 mmol/L 20-29 code = 8-9) Calcium (test code = 01661-7) 9.8 mg/dL 8.7-10.2 Protein, Total (test code = 7.0 g/dL 6.0-8.5 2885-2) Albumin (test code = 1751-7) 4.8 g/dL 3.8-4.9 Globulin, Total (test code = 2.2 g/dL 1.5-4.5 89748-9) A/G Ratio (test code = 2.2 1.2-2.2 1759-0) Bilirubin, Total (test code = 0.4 mg/dL 0.0-1.2 1975-2) Alkaline Phosphatase (test 177 IU/L 44-121 H code = 6768-6) AST (SGOT) (test code = 102 IU/L 0-40 H 1920-8) ALT (SGPT) (test code = 55 IU/L 0-32 H 1742-6) [facility] Description: Lipid [id number] 11:13:00 Test Item Value Reference Range Interpretation Comments Cholesterol, Total (test code = 299 mg/dL 100-199 H 2092-3) Triglycerides (test code = 2571-8) 501 mg/dL 0-149 H HDL Cholesterol (test code = 99 mg/dL >39 2084-9) VLDL Cholesterol Chao (test code = 86 mg/dL 5-40 H 71254-2) LDL Chol Calc (NIH) (test code = 114 mg/dL 0-99 H 57145-1) Comment: (test code = 43857-9) [facility] Description: Comp. Metabolic Panel (14)2022-09-03 11:13:00 Test Item Value Reference Range Interpretation Comments Glucose (test code = 2345-7) 112 mg/dL 70-99 H BUN (test code = 3094-0) 6 mg/dL 6-24 Creatinine (test code = 0.57 mg/dL 0.57-1.00 2160-0) eGFR (test code = 82530-2) 105 mL/min/1.73 >59 BUN/Creatinine Ratio (test 11 9-23 code = 3097-3) Sodium (test code = 2951-2) 147 mmol/L 134-144 H Potassium (test code = 3.8 mmol/L 3.5-5.2 2823-3) Chloride (test code = 2075-0) 104 mmol/L 96-106 Carbon Dioxide, Total (test 23 mmol/L 20-29 code = 2028-9) Calcium (test code = 85579-4) 9.8 mg/dL 8.7-10.2 Protein, Total (test code = 7.0 g/dL 6.0-8.5 2885-2) Albumin (test code = 1751-7) 4.8 g/dL 3.8-4.9 Globulin, Total (test code = 2.2 g/dL 1.5-4.5 66049-5) A/G Ratio (test code = 2.2 1.2-2.2 1759-0) Bilirubin, Total (test code = 0.4 mg/dL 0.0-1.2 1975-2) Alkaline Phosphatase (test 177 IU/L 44-121 H code = 6768-6) AST (SGOT) (test code = 102 IU/L 0-40 H 1920-8) ALT (SGPT) (test code = 55 IU/L 0-32 H 1742-6) [facility] Description: Lipid [id number] 11:13:00 Test Item Value Reference Range Interpretation Comments Cholesterol, Total (test code = 299 mg/dL 100-199 H 2093-3) Triglycerides (test code = 2571-8) 501 mg/dL 0-149 H HDL Cholesterol (test code = 99 mg/dL >39 2084-9) VLDL Cholesterol Chao (test code = 86 mg/dL 5-40 H 80529-8) LDL Chol Calc (NIH) (test code = 114 mg/dL 0-99 H 05574-5) Comment: (test code = 19479-7) [facility] Description: Comp. Metabolic Panel (14)2022-09-03 11:13:00 Test Item Value Reference Range Interpretation Comments Glucose (test code = 2345-7) 112 mg/dL 70-99 H BUN (test code = 3094-0) 6 mg/dL 6-24 Creatinine (test code = 0.57 mg/dL 0.57-1.00 2160-0) eGFR (test code = 84807-1) 105 mL/min/1.73 >59 BUN/Creatinine Ratio (test 11 9-23 code = 3097-3) Sodium (test code = 2951-2) 147 mmol/L 134-144 H Potassium (test code = 3.8 mmol/L 3.5-5.2 2823-3) Chloride (test code = 2075-0) 104 mmol/L 96-106 Carbon Dioxide, Total (test 23 mmol/L 20-29 code = 8-9) Calcium (test code = 03030-1) 9.8 mg/dL 8.7-10.2 Protein, Total (test code = 7.0 g/dL 6.0-8.5 2885-2) Albumin (test code = 1751-7) 4.8 g/dL 3.8-4.9 Globulin, Total (test code = 2.2 g/dL 1.5-4.5 32189-4) A/G Ratio (test code = 2.2 1.2-2.2 1759-0) Bilirubin, Total (test code = 0.4 mg/dL 0.0-1.2 1975-2) Alkaline Phosphatase (test 177 IU/L 44-121 H code = 6768-6) AST (SGOT) (test code = 102 IU/L 0-40 H 1920-8) ALT (SGPT) (test code = 55 IU/L 0-32 H 1742-6) [facility] Description: Lipid [id number] 11:13:00 Test Item Value Reference Range Interpretation Comments Cholesterol, Total (test code = 299 mg/dL 100-199 H 2093-3) Triglycerides (test code = 2571-8) 501 mg/dL 0-149 H HDL Cholesterol (test code = 99 mg/dL >39 5-9) VLDL Cholesterol Chao (test code = 86 mg/dL 5-40 H 77140-9) LDL Chol Calc (NIH) (test code = 114 mg/dL 0-99 H 24304-3) Comment: (test code = 63288-7) [facility] Description: Comp. Metabolic Panel (14)2022-09-03 11:13:00 Test Item Value Reference Range Interpretation Comments Glucose (test code = 2345-7) 112 mg/dL 70-99 H BUN (test code = 3094-0) 6 mg/dL 6-24 Creatinine (test code = 0.57 mg/dL 0.57-1.00 2160-0) eGFR (test code = 96270-3) 105 mL/min/1.73 >59 BUN/Creatinine Ratio (test 11 9-23 code = 3097-3) Sodium (test code = 2951-2) 147 mmol/L 134-144 H Potassium (test code = 3.8 mmol/L 3.5-5.2 2823-3) Chloride (test code = 2075-0) 104 mmol/L 96-106 Carbon Dioxide, Total (test 23 mmol/L 20-29 code = 8-9) Calcium (test code = 49427-5) 9.8 mg/dL 8.7-10.2 Protein, Total (test code = 7.0 g/dL 6.0-8.5 2885-2) Albumin (test code = 1751-7) 4.8 g/dL 3.8-4.9 Globulin, Total (test code = 2.2 g/dL 1.5-4.5 08884-5) A/G Ratio (test code = 2.2 1.2-2.2 1759-0) Bilirubin, Total (test code = 0.4 mg/dL 0.0-1.2 1975-2) Alkaline Phosphatase (test 177 IU/L 44-121 H code = 6768-6) AST (SGOT) (test code = 102 IU/L 0-40 H 1920-8) ALT (SGPT) (test code = 55 IU/L 0-32 H 1742-6) [facility] Description: Lipid [id number] 11:13:00 Test Item Value Reference Range Interpretation Comments Cholesterol, Total (test code = 299 mg/dL 100-199 H 2093-3) Triglycerides (test code = 2571-8) 501 mg/dL 0-149 H HDL Cholesterol (test code = 99 mg/dL >39 5-9) VLDL Cholesterol Chao (test code = 86 mg/dL 5-40 H 12712-3) LDL Chol Calc (NIH) (test code = 114 mg/dL 0-99 H 20709-6) Comment: (test code = 30112-1) [facility] Description: Comp. Metabolic Panel (14)2022-09-03 11:13:00 Test Item Value Reference Range Interpretation Comments Glucose (test code = 2345-7) 112 mg/dL 70-99 H BUN (test code = 3094-0) 6 mg/dL 6-24 Creatinine (test code = 0.57 mg/dL 0.57-1.00 2160-0) eGFR (test code = 78351-3) 105 mL/min/1.73 >59 BUN/Creatinine Ratio (test 11 9-23 code = 3097-3) Sodium (test code = 2951-2) 147 mmol/L 134-144 H Potassium (test code = 3.8 mmol/L 3.5-5.2 2823-3) Chloride (test code = 2075-0) 104 mmol/L 96-106 Carbon Dioxide, Total (test 23 mmol/L 20-29 code = 8-9) Calcium (test code = 44055-1) 9.8 mg/dL 8.7-10.2 Protein, Total (test code = 7.0 g/dL 6.0-8.5 2885-2) Albumin (test code = 1751-7) 4.8 g/dL 3.8-4.9 Globulin, Total (test code = 2.2 g/dL 1.5-4.5 85881-2) A/G Ratio (test code = 2.2 1.2-2.2 1759-0) Bilirubin, Total (test code = 0.4 mg/dL 0.0-1.2 1975-2) Alkaline Phosphatase (test 177 IU/L 44-121 H code = 6768-6) AST (SGOT) (test code = 102 IU/L 0-40 H 1920-8) ALT (SGPT) (test code = 55 IU/L 0-32 H 1742-6) [facility] Description: Lipid [id number] 11:13:00 Test Item Value Reference Range Interpretation Comments Cholesterol, Total (test code = 299 mg/dL 100-199 H 2093-3) Triglycerides (test code = 2571-8) 501 mg/dL 0-149 H HDL Cholesterol (test code = 99 mg/dL >39 2085-9) VLDL Cholesterol Chao (test code = 86 mg/dL 5-40 H 87117-9) LDL Chol Calc (NIH) (test code = 114 mg/dL 0-99 H 35738-1) Comment: (test code = 80174-1) [facility] Description: Comp. Metabolic Panel (14)2022-09-03 11:13:00 Test Item Value Reference Range Interpretation Comments Glucose (test code = 2345-7) 112 mg/dL 70-99 H BUN (test code = 3094-0) 6 mg/dL 6-24 Creatinine (test code = 0.57 mg/dL 0.57-1.00 2160-0) eGFR (test code = 50200-9) 105 mL/min/1.73 >59 BUN/Creatinine Ratio (test 11 9-23 code = 3097-3) Sodium (test code = 2951-2) 147 mmol/L 134-144 H Potassium (test code = 3.8 mmol/L 3.5-5.2 2823-3) Chloride (test code = 2075-0) 104 mmol/L 96-106 Carbon Dioxide, Total (test 23 mmol/L 20-29 code = 8-9) Calcium (test code = 02469-5) 9.8 mg/dL 8.7-10.2 Protein, Total (test code = 7.0 g/dL 6.0-8.5 2885-2) Albumin (test code = 1751-7) 4.8 g/dL 3.8-4.9 Globulin, Total (test code = 2.2 g/dL 1.5-4.5 30977-3) A/G Ratio (test code = 2.2 1.2-2.2 1759-0) Bilirubin, Total (test code = 0.4 mg/dL 0.0-1.2 1975-2) Alkaline Phosphatase (test 177 IU/L 44-121 H code = 6768-6) AST (SGOT) (test code = 102 IU/L 0-40 H 1920-8) ALT (SGPT) (test code = 55 IU/L 0-32 H 1742-6) [facility] Description: Lipid [id number] 11:13:00 Test Item Value Reference Range Interpretation Comments Cholesterol, Total (test code = 299 mg/dL 100-199 H 2093-3) Triglycerides (test code = 2571-8) 501 mg/dL 0-149 H HDL Cholesterol (test code = 99 mg/dL >39 2085-9) VLDL Cholesterol Chao (test code = 86 mg/dL 5-40 H 14925-5) LDL Chol Calc (NIH) (test code = 114 mg/dL 0-99 H 61909-2) Comment: (test code = 85819-2) [facility] Description: Comp. Metabolic Panel (14)2022-09-03 11:13:00 Test Item Value Reference Range Interpretation Comments Glucose (test code = 2345-7) 112 mg/dL 70-99 H BUN (test code = 3094-0) 6 mg/dL 6-24 Creatinine (test code = 0.57 mg/dL 0.57-1.00 2160-0) eGFR (test code = 21775-6) 105 mL/min/1.73 >59 BUN/Creatinine Ratio (test 11 9-23 code = 3097-3) Sodium (test code = 2951-2) 147 mmol/L 134-144 H Potassium (test code = 3.8 mmol/L 3.5-5.2 2823-3) Chloride (test code = 2075-0) 104 mmol/L 96-106 Carbon Dioxide, Total (test 23 mmol/L 20-29 code = 8-9) Calcium (test code = 78652-0) 9.8 mg/dL 8.7-10.2 Protein, Total (test code = 7.0 g/dL 6.0-8.5 2885-2) Albumin (test code = 1751-7) 4.8 g/dL 3.8-4.9 Globulin, Total (test code = 2.2 g/dL 1.5-4.5 29659-2) A/G Ratio (test code = 2.2 1.2-2.2 1759-0) Bilirubin, Total (test code = 0.4 mg/dL 0.0-1.2 1974-2) Alkaline Phosphatase (test 177 IU/L 44-121 H code = 6768-6) AST (SGOT) (test code = 102 IU/L 0-40 H 1920-8) ALT (SGPT) (test code = 55 IU/L 0-32 H 1742-6) [facility] Description: Lipid [id number] 11:13:00 Test Item Value Reference Range Interpretation Comments Cholesterol, Total (test code = 299 mg/dL 100-199 H 2093-3) Triglycerides (test code = 2571-8) 501 mg/dL 0-149 H HDL Cholesterol (test code = 99 mg/dL >39 5-9) VLDL Cholesterol Chao (test code = 86 mg/dL 5-40 H 50600-0) LDL Chol Calc (NIH) (test code = 114 mg/dL 0-99 H 17734-1) Comment: (test code = 61788-2) [facility] Description: Comp. Metabolic Panel (14)2022-09-03 11:13:00 Test Item Value Reference Range Interpretation Comments Glucose (test code = 2345-7) 112 mg/dL 70-99 H BUN (test code = 3094-0) 6 mg/dL 6-24 Creatinine (test code = 0.57 mg/dL 0.57-1.00 2160-0) eGFR (test code = 12167-1) 105 mL/min/1.73 >59 BUN/Creatinine Ratio (test 11 9-23 code = 3097-3) Sodium (test code = 2951-2) 147 mmol/L 134-144 H Potassium (test code = 3.8 mmol/L 3.5-5.2 2823-3) Chloride (test code = 2075-0) 104 mmol/L 96-106 Carbon Dioxide, Total (test 23 mmol/L 20-29 code = 2027-9) Calcium (test code = 84474-9) 9.8 mg/dL 8.7-10.2 Protein, Total (test code = 7.0 g/dL 6.0-8.5 2885-2) Albumin (test code = 1751-7) 4.8 g/dL 3.8-4.9 Globulin, Total (test code = 2.2 g/dL 1.5-4.5 48336-4) A/G Ratio (test code = 2.2 1.2-2.2 1759-0) Bilirubin, Total (test code = 0.4 mg/dL 0.0-1.2 1975-2) Alkaline Phosphatase (test 177 IU/L 44-121 H code = 6768-6) AST (SGOT) (test code = 102 IU/L 0-40 H 1920-8) ALT (SGPT) (test code = 55 IU/L 0-32 H 1742-6) [facility] Description: Lipid [id number] 11:13:00 Test Item Value Reference Range Interpretation Comments Cholesterol, Total (test code = 299 mg/dL 100-199 H 2093-3) Triglycerides (test code = 2571-8) 501 mg/dL 0-149 H HDL Cholesterol (test code = 99 mg/dL >39 5-9) VLDL Cholesterol Chao (test code = 86 mg/dL 5-40 H 03575-8) LDL Chol Calc (NIH) (test code = 114 mg/dL 0-99 H 42397-9) Comment: (test code = 77520-4) [facility] Description: Comp. Metabolic Panel (14)2022-09-03 11:13:00 Test Item Value Reference Range Interpretation Comments Glucose (test code = 2345-7) 112 mg/dL 70-99 H BUN (test code = 3094-0) 6 mg/dL 6-24 Creatinine (test code = 0.57 mg/dL 0.57-1.00 2160-0) eGFR (test code = 55020-2) 105 mL/min/1.73 >59 BUN/Creatinine Ratio (test 11 - code = 3097-3) Sodium (test code = 2951-2) 147 mmol/L 134-144 H Potassium (test code = 3.8 mmol/L 3.5-5.2 2823-3) Chloride (test code = 2075-0) 104 mmol/L 96-106 Carbon Dioxide, Total (test 23 mmol/L 20-29 code = 2027-9) Calcium (test code = 89818-2) 9.8 mg/dL 8.7-10.2 Protein, Total (test code = 7.0 g/dL 6.0-8.5 2885-2) Albumin (test code = 1751-7) 4.8 g/dL 3.8-4.9 Globulin, Total (test code = 2.2 g/dL 1.5-4.5 97980-3) A/G Ratio (test code = 2.2 1.2-2.2 1759-0) Bilirubin, Total (test code = 0.4 mg/dL 0.0-1.2 1975-2) Alkaline Phosphatase (test 177 IU/L 44-121 H code = 6768-6) AST (SGOT) (test code = 102 IU/L 0-40 H 1920-8) ALT (SGPT) (test code = 55 IU/L 0-32 H 1742-6) [facility] Description: Lipid [id number] 11:13:00 Test Item Value Reference Range Interpretation Comments Cholesterol, Total (test code = 299 mg/dL 100-199 H 2093-3) Triglycerides (test code = 2571-8) 501 mg/dL 0-149 H HDL Cholesterol (test code = 99 mg/dL >39 2084-9) VLDL Cholesterol Chao (test code = 86 mg/dL 5-40 H 37721-6) LDL Chol Calc (NIH) (test code = 114 mg/dL 0-99 H 38587-8) Comment: (test code = 96183-2) [facility] Description: Comp. Metabolic Panel (14)2022-09-03 11:13:00 Test Item Value Reference Range Interpretation Comments Glucose (test code = 2345-7) 112 mg/dL 70-99 H BUN (test code = 3094-0) 6 mg/dL 6-24 Creatinine (test code = 0.57 mg/dL 0.57-1.00 2160-0) eGFR (test code = 29042-1) 105 mL/min/1.73 >59 BUN/Creatinine Ratio (test 11 05-14 code = 3097-3) Sodium (test code = 2951-2) 147 mmol/L 134-144 H Potassium (test code = 3.8 mmol/L 3.5-5.2 2823-3) Chloride (test code = 2075-0) 104 mmol/L 96-106 Carbon Dioxide, Total (test 23 mmol/L 20-29 code = 2028-9) Calcium (test code = 89993-3) 9.8 mg/dL 8.7-10.2 Protein, Total (test code = 7.0 g/dL 6.0-8.5 2885-2) Albumin (test code = 1751-7) 4.8 g/dL 3.8-4.9 Globulin, Total (test code = 2.2 g/dL 1.5-4.5 41537-7) A/G Ratio (test code = 2.2 1.2-2.2 1759-0) Bilirubin, Total (test code = 0.4 mg/dL 0.0-1.2 1974-2) Alkaline Phosphatase (test 177 IU/L 44-121 H code = 6768-6) AST (SGOT) (test code = 102 IU/L 0-40 H 1920-8) ALT (SGPT) (test code = 55 IU/L 0-32 H 1742-6) [facility] Description: Lipid [id number] 11:13:00 Test Item Value Reference Range Interpretation Comments Cholesterol, Total (test code = 299 mg/dL 100-199 H 209-3) Triglycerides (test code = 2571-8) 501 mg/dL 0-149 H HDL Cholesterol (test code = 99 mg/dL >39 2084-9) VLDL Cholesterol Chao (test code = 86 mg/dL 5-40 H 01065-6) LDL Chol Calc (NIH) (test code = 114 mg/dL 0-99 H 65829-9) Comment: (test code = 69619-5) [facility] Description: Comp. Metabolic Panel (14)2022-09-03 11:13:00 Test Item Value Reference Range Interpretation Comments Glucose (test code = 2345-7) 112 mg/dL 70-99 H BUN (test code = 3094-0) 6 mg/dL 6-24 Creatinine (test code = 0.57 mg/dL 0.57-1.00 2160-0) eGFR (test code = 00423-6) 105 mL/min/1.73 >59 BUN/Creatinine Ratio (test 11 05-14 code = 3097-3) Sodium (test code = 2951-2) 147 mmol/L 134-144 H Potassium (test code = 3.8 mmol/L 3.5-5.2 2823-3) Chloride (test code = 2075-0) 104 mmol/L 96-106 Carbon Dioxide, Total (test 23 mmol/L 20-29 code = 2027-9) Calcium (test code = 95833-7) 9.8 mg/dL 8.7-10.2 Protein, Total (test code = 7.0 g/dL 6.0-8.5 2885-2) Albumin (test code = 1751-7) 4.8 g/dL 3.8-4.9 Globulin, Total (test code = 2.2 g/dL 1.5-4.5 72303-8) A/G Ratio (test code = 2.2 1.2-2.2 1759-0) Bilirubin, Total (test code = 0.4 mg/dL 0.0-1.2 1974-2) Alkaline Phosphatase (test 177 IU/L 44-121 H code = 6768-6) AST (SGOT) (test code = 102 IU/L 0-40 H 1920-8) ALT (SGPT) (test code = 55 IU/L 0-32 H 1742-6) [facility] Description: Lipid [id number] 11:13:00 Test Item Value Reference Range Interpretation Comments Cholesterol, Total (test code = 299 mg/dL 100-199 H 2093-3) Triglycerides (test code = 2571-8) 501 mg/dL 0-149 H HDL Cholesterol (test code = 99 mg/dL >39 5-9) VLDL Cholesterol Chao (test code = 86 mg/dL 5-40 H 45472-1) LDL Chol Calc (NIH) (test code = 114 mg/dL 0-99 H 35364-7) Comment: (test code = 39407-6) [facility] Description: Comp. Metabolic Panel (14)2022-09-03 11:13:00 Test Item Value Reference Range Interpretation Comments Glucose (test code = 2345-7) 112 mg/dL 70-99 H BUN (test code = 3094-0) 6 mg/dL 6-24 Creatinine (test code = 0.57 mg/dL 0.57-1.00 2160-0) eGFR (test code = 77451-0) 105 mL/min/1.73 >59 BUN/Creatinine Ratio (test 11 9-23 code = 3097-3) Sodium (test code = 2951-2) 147 mmol/L 134-144 H Potassium (test code = 3.8 mmol/L 3.5-5.2 2823-3) Chloride (test code = 2075-0) 104 mmol/L 96-106 Carbon Dioxide, Total (test 23 mmol/L 20-29 code = 8-9) Calcium (test code = 71549-5) 9.8 mg/dL 8.7-10.2 Protein, Total (test code = 7.0 g/dL 6.0-8.5 2885-2) Albumin (test code = 1751-7) 4.8 g/dL 3.8-4.9 Globulin, Total (test code = 2.2 g/dL 1.5-4.5 54612-2) A/G Ratio (test code = 2.2 1.2-2.2 1759-0) Bilirubin, Total (test code = 0.4 mg/dL 0.0-1.2 1974-2) Alkaline Phosphatase (test 177 IU/L 44-121 H code = 6768-6) AST (SGOT) (test code = 102 IU/L 0-40 H 1920-8) ALT (SGPT) (test code = 55 IU/L 0-32 H 1742-6) [facility] Description: Lipid [id number] 11:13:00 Test Item Value Reference Range Interpretation Comments Cholesterol, Total (test code = 299 mg/dL 100-199 H 2092-3) Triglycerides (test code = 2571-8) 501 mg/dL 0-149 H HDL Cholesterol (test code = 99 mg/dL >39 2084-9) VLDL Cholesterol Chao (test code = 86 mg/dL 5-40 H 59305-5) LDL Chol Calc (NIH) (test code = 114 mg/dL 0-99 H 27467-0) Comment: (test code = 03131-9) [facility] Description: Comp. Metabolic Panel (14)2022-09-03 11:13:00 Test Item Value Reference Range Interpretation Comments Glucose (test code = 2345-7) 112 mg/dL 70-99 H BUN (test code = 3094-0) 6 mg/dL 6-24 Creatinine (test code = 0.57 mg/dL 0.57-1.00 2160-0) eGFR (test code = 35569-8) 105 mL/min/1.73 >59 BUN/Creatinine Ratio (test 11 9-23 code = 3097-3) Sodium (test code = 2951-2) 147 mmol/L 134-144 H Potassium (test code = 3.8 mmol/L 3.5-5.2 2823-3) Chloride (test code = 2075-0) 104 mmol/L 96-106 Carbon Dioxide, Total (test 23 mmol/L 20-29 code = 2028-9) Calcium (test code = 07201-0) 9.8 mg/dL 8.7-10.2 Protein, Total (test code = 7.0 g/dL 6.0-8.5 2885-2) Albumin (test code = 1751-7) 4.8 g/dL 3.8-4.9 Globulin, Total (test code = 2.2 g/dL 1.5-4.5 32239-1) A/G Ratio (test code = 2.2 1.2-2.2 1759-0) Bilirubin, Total (test code = 0.4 mg/dL 0.0-1.2 1975-2) Alkaline Phosphatase (test 177 IU/L 44-121 H code = 6768-6) AST (SGOT) (test code = 102 IU/L 0-40 H 1920-8) ALT (SGPT) (test code = 55 IU/L 0-32 H 1742-6) [facility] Description: Lipid [id number] 11:13:00 Test Item Value Reference Range Interpretation Comments Cholesterol, Total (test code = 299 mg/dL 100-199 H 209-3) Triglycerides (test code = 2571-8) 501 mg/dL 0-149 H HDL Cholesterol (test code = 99 mg/dL >39 2084-9) VLDL Cholesterol Chao (test code = 86 mg/dL 5-40 H 50310-6) LDL Chol Calc (NIH) (test code = 114 mg/dL 0-99 H 97153-2) Comment: (test code = 30153-6) [facility] Description: Comp. Metabolic Panel (14)2022-09-03 11:13:00 Test Item Value Reference Range Interpretation Comments Glucose (test code = 2345-7) 112 mg/dL 70-99 H BUN (test code = 3094-0) 6 mg/dL 6-24 Creatinine (test code = 0.57 mg/dL 0.57-1.00 2160-0) eGFR (test code = 93963-8) 105 mL/min/1.73 >59 BUN/Creatinine Ratio (test 11 9-23 code = 3097-3) Sodium (test code = 2951-2) 147 mmol/L 134-144 H Potassium (test code = 3.8 mmol/L 3.5-5.2 2823-3) Chloride (test code = 2075-0) 104 mmol/L 96-106 Carbon Dioxide, Total (test 23 mmol/L 20-29 code = 8-9) Calcium (test code = 80079-1) 9.8 mg/dL 8.7-10.2 Protein, Total (test code = 7.0 g/dL 6.0-8.5 2885-2) Albumin (test code = 1751-7) 4.8 g/dL 3.8-4.9 Globulin, Total (test code = 2.2 g/dL 1.5-4.5 84483-9) A/G Ratio (test code = 2.2 1.2-2.2 1759-0) Bilirubin, Total (test code = 0.4 mg/dL 0.0-1.2 1975-2) Alkaline Phosphatase (test 177 IU/L 44-121 H code = 6768-6) AST (SGOT) (test code = 102 IU/L 0-40 H 1920-8) ALT (SGPT) (test code = 55 IU/L 0-32 H 1742-6) [facility] Description: Lipid [id number] 11:13:00 Test Item Value Reference Range Interpretation Comments Cholesterol, Total (test code = 299 mg/dL 100-199 H 2093-3) Triglycerides (test code = 2571-8) 501 mg/dL 0-149 H HDL Cholesterol (test code = 99 mg/dL >39 5-9) VLDL Cholesterol Chao (test code = 86 mg/dL 5-40 H 80176-3) LDL Chol Calc ([facility]) (test code = 114 mg/dL 0-99 H 32830-2) Comment: (test code = 43275-1) [facility] Description: KIZZY w/Reflex if Xjhbvbqp0580-69-56 10:22:00 Test Item Value Reference Range Interpretation Comments KIZZY Direct (test code = 8061-4) Negative Negative [facility] Description: KIZZY w/Reflex if [id number] 10:22:00 Test Item Value Reference Range Interpretation Comments KIZZY Direct (test code = 8061-4) Negative Negative [facility] Description: KIZZY w/Reflex if [id number] 10:22:00 Test Item Value Reference Range Interpretation Comments KIZZY Direct (test code = 8061-4) Negative Negative [facility] Description: KIZZY w/Reflex if [id number] 10:22:00 Test Item Value Reference Range Interpretation Comments KIZZY Direct (test code = 8061-4) Negative Negative [facility] Description: KIZZY w/Reflex if Mznnvpkn7193-00-61 10:22:00 Test Item Value Reference Range Interpretation Comments KIZZY Direct (test code = 8061-4) Negative Negative [facility] Description: KIZZY w/Reflex if [id number] 10:22:00 Test Item Value Reference Range Interpretation Comments KIZZY Direct (test code = 8061-4) Negative Negative [facility] Description: KIZZY w/Reflex if Wbaoguuj4854-79-71 10:22:00 Test Item Value Reference Range Interpretation Comments KIZZY Direct (test code = 8061-4) Negative Negative [facility] Description: KIZZY w/Reflex if Ceiugasm5505-08-04 10:22:00 Test Item Value Reference Range Interpretation Comments KIZZY Direct (test code = 8061-4) Negative Negative [facility] Description: KIZZY w/Reflex if Eyisctus4576-64-69 10:22:00 Test Item Value Reference Range Interpretation Comments KIZZY Direct (test code = 8061-4) Negative Negative [facility] Description: KIZZY w/Reflex if [id number] 10:22:00 Test Item Value Reference Range Interpretation Comments KIZZY Direct (test code = 8061-4) Negative Negative [facility] Description: KIZZY w/Reflex if Qyruupil7686-91-22 10:22:00 Test Item Value Reference Range Interpretation Comments KIZZY Direct (test code = 8061-4) Negative Negative [facility] Description: KIZZY w/Reflex if [id number] 10:22:00 Test Item Value Reference Range Interpretation Comments KIZZY Direct (test code = 8061-4) Negative Negative [facility] Description: KIZZY w/Reflex if Uxpjmssq5651-39-03 10:22:00 Test Item Value Reference Range Interpretation Comments KIZZY Direct (test code = 8061-4) Negative Negative [facility] Description: KIZZY w/Reflex if Zewuhnze3438-69-95 10:22:00 Test Item Value Reference Range Interpretation Comments KIZZY Direct (test code = 8061-4) Negative Negative [facility] Description: KIZZY w/Reflex if Yitprnjs3962-15-38 10:22:00 Test Item Value Reference Range Interpretation Comments KIZZY Direct (test code = 8061-4) Negative Negative [facility] Description: KIZZY w/Reflex if Uhedswwz8408-00-97 10:22:00 Test Item Value Reference Range Interpretation Comments KIZZY Direct (test code = 8061-4) Negative Negative [facility] Description: KIZZY w/Reflex if [id number] 10:22:00 Test Item Value Reference Range Interpretation Comments KIZZY Direct (test code = 8061-4) Negative Negative [facility] Description: KIZZY w/Reflex if Cynvpmyx6939-61-08 10:22:00 Test Item Value Reference Range Interpretation Comments KIZZY Direct (test code = 8061-4) Negative Negative [facility] Description: KIZZY w/Reflex if Huufuhvm0303-31-15 10:22:00 Test Item Value Reference Range Interpretation Comments KIZZY Direct (test code = 8061-4) Negative Negative [facility] Description: KIZZY w/Reflex if Jfmvxjco5094-07-51 10:22:00 Test Item Value Reference Range Interpretation Comments KIZZY Direct (test code = 8061-4) Negative Negative [facility] Description: KIZZY w/Reflex if Akvfnkpi2173-46-26 10:22:00 Test Item Value Reference Range Interpretation Comments KIZZY Direct (test code = 8061-4) Negative Negative [facility] Description: KIZZY w/Reflex if Ccosyldj5264-26-12 10:22:00 Test Item Value Reference Range Interpretation Comments KIZZY Direct (test code = 8061-4) Negative Negative [facility] Description: Hemoglobin A1c/Hemoglobin.total in Blood 2022-09-03 08:06:00 Test Item Value Reference Range Interpretation Comments Hemoglobin A1c (test code 5.2 % 4.8-5.6 . Prediabetes: 5.7 - = 4548-4) 6.4 Diabetes: > 6.4 Glycemic contro l for adults with pk betes: <7.0Performed by:[facility] ([place]) [facility] Description: Hemoglobin A1c/Hemoglobin.total in Blood 2022-09-03 08:06:00 Test Item Value Reference Range Interpretation Comments Hemoglobin A1c (test code 5.2 % 4.8-5.6 . Prediabetes: 5.7 - = 4548-4) 6.4 Diabetes: > 6.4 Glycemic contro l for adults with pk betes: <7.0Performed by:[facility] ([place]) [facility] Description: Hemoglobin A1c/Hemoglobin.total in Blood 2022-09-03 08:06:00 Test Item Value Reference Range Interpretation Comments Hemoglobin A1c (test code 5.2 % 4.8-5.6 . Prediabetes: 5.7 - = 4548-4) 6.4 Diabetes: > 6.4 Glycemic contro l for adults with pk betes: <7.0Performed by:[facility] ([place]) [facility] Description: Hemoglobin A1c/Hemoglobin.total in Blood 2022-09-03 08:06:00 Test Item Value Reference Range Interpretation Comments Hemoglobin A1c (test code 5.2 % 4.8-5.6 . Prediabetes: 5.7 - = 4548-4) 6.4 Diabetes: > 6.4 Glycemic contro l for adults with pk betes: <7.0Performed by:[facility] ([place]) [facility] Description: Hemoglobin A1c/Hemoglobin.total in Blood 2022-09-03 08:06:00 Test Item Value Reference Range Interpretation Comments Hemoglobin A1c (test code 5.2 % 4.8-5.6 . Prediabetes: 5.7 - = 4548-4) 6.4 Diabetes: > 6.4 Glycemic contro l for adults with pk betes: <7.0Performed by:[facility] ([place]) [facility] Description: Hemoglobin A1c/Hemoglobin.total in Blood 2022-09-03 08:06:00 Test Item Value Reference Range Interpretation Comments Hemoglobin A1c (test code 5.2 % 4.8-5.6 . Prediabetes: 5.7 - = 4548-4) 6.4 Diabetes: > 6.4 Glycemic contro l for adults with pk betes: <7.0Performed by:[facility] ([place]) [facility] Description: Hemoglobin A1c/Hemoglobin.total in Blood 2022-09-03 08:06:00 Test Item Value Reference Range Interpretation Comments Hemoglobin A1c (test code 5.2 % 4.8-5.6 . Prediabetes: 5.7 - = 4548-4) 6.4 Diabetes: > 6.4 Glycemic contro l for adults with pk betes: <7.0Performed by:[facility] ([place]) [facility] Description: Hemoglobin A1c/Hemoglobin.total in Blood 2022-09-03 08:06:00 Test Item Value Reference Range Interpretation Comments Hemoglobin A1c (test code 5.2 % 4.8-5.6 . Prediabetes: 5.7 - = 4548-4) 6.4 Diabetes: > 6.4 Glycemic contro l for adults with pk betes: <7.0Performed by:[facility] ([place]) [facility] Description: Hemoglobin A1c/Hemoglobin.total in Blood 2022-09-03 08:06:00 Test Item Value Reference Range Interpretation Comments Hemoglobin A1c (test code 5.2 % 4.8-5.6 . Prediabetes: 5.7 - = 4548-4) 6.4 Diabetes: > 6.4 Glycemic contro l for adults with pk betes: <7.0Performed by:[facility] ([place]) [facility] Description: Hemoglobin A1c/Hemoglobin.total in Blood 2022-09-03 08:06:00 Test Item Value Reference Range Interpretation Comments Hemoglobin A1c (test code 5.2 % 4.8-5.6 . Prediabetes: 5.7 - = 4548-4) 6.4 Diabetes: > 6.4 Glycemic contro l for adults with pk betes: <7.0Performed by:[facility] ([place]) [facility] Description: Hemoglobin A1c/Hemoglobin.total in Blood 2022-09-03 08:06:00 Test Item Value Reference Range Interpretation Comments Hemoglobin A1c (test code 5.2 % 4.8-5.6 . Prediabetes: 5.7 - = 4548-4) 6.4 Diabetes: > 6.4 Glycemic contro l for adults with pk betes: <7.0Performed by:[facility] ([place]) [facility] Description: Hemoglobin A1c/Hemoglobin.total in Blood 2022-09-03 08:06:00 Test Item Value Reference Range Interpretation Comments Hemoglobin A1c (test code 5.2 % 4.8-5.6 . Prediabetes: 5.7 - = 4548-4) 6.4 Diabetes: > 6.4 Glycemic contro l for adults with pk betes: <7.0Performed by:[facility] ([place]) [facility] Description: Hemoglobin A1c/Hemoglobin.total in Blood 2022-09-03 08:06:00 Test Item Value Reference Range Interpretation Comments Hemoglobin A1c (test code 5.2 % 4.8-5.6 . Prediabetes: 5.7 - = 4548-4) 6.4 Diabetes: > 6.4 Glycemic contro l for adults with pk betes: <7.0Performed by:[facility] ([place]) [facility] Description: Hemoglobin A1c/Hemoglobin.total in Blood 2022-09-03 08:06:00 Test Item Value Reference Range Interpretation Comments Hemoglobin A1c (test code 5.2 % 4.8-5.6 . Prediabetes: 5.7 - = 4548-4) 6.4 Diabetes: > 6.4 Glycemic contro l for adults with pk betes: <7.0Performed by:[facility] ([place]) [facility] Description: Hemoglobin A1c/Hemoglobin.total in Blood 2022-09-03 08:06:00 Test Item Value Reference Range Interpretation Comments Hemoglobin A1c (test code 5.2 % 4.8-5.6 . Prediabetes: 5.7 - = 4548-4) 6.4 Diabetes: > 6.4 Glycemic contro l for adults with pk betes: <7.0Performed by:[facility] ([place]) [facility] Description: Hemoglobin A1c/Hemoglobin.total in Blood 2022-09-03 08:06:00 Test Item Value Reference Range Interpretation Comments Hemoglobin A1c (test code 5.2 % 4.8-5.6 . Prediabetes: 5.7 - = 4548-4) 6.4 Diabetes: > 6.4 Glycemic contro l for adults with pk betes: <7.0Performed by:[facility] ([place]) [facility] Description: Hemoglobin A1c/Hemoglobin.total in Blood 2022-09-03 08:06:00 Test Item Value Reference Range Interpretation Comments Hemoglobin A1c (test code 5.2 % 4.8-5.6 . Prediabetes: 5.7 - = 4548-4) 6.4 Diabetes: > 6.4 Glycemic contro l for adults with pk betes: <7.0Performed by:[facility] ([place]) [facility] Description: Hemoglobin A1c/Hemoglobin.total in Blood 2022-09-03 08:06:00 Test Item Value Reference Range Interpretation Comments Hemoglobin A1c (test code 5.2 % 4.8-5.6 . Prediabetes: 5.7 - = 4548-4) 6.4 Diabetes: > 6.4 Glycemic contro l for adults with pk betes: <7.0Performed by:[facility] ([place]) [facility] Description: Hemoglobin A1c/Hemoglobin.total in Blood 2022-09-03 08:06:00 Test Item Value Reference Range Interpretation Comments Hemoglobin A1c (test code 5.2 % 4.8-5.6 . Prediabetes: 5.7 - = 4548-4) 6.4 Diabetes: > 6.4 Glycemic contro l for adults with pk betes: <7.0Performed by:[facility] ([place]) [facility] Description: Hemoglobin A1c/Hemoglobin.total in Blood 2022-09-03 08:06:00 Test Item Value Reference Range Interpretation Comments Hemoglobin A1c (test code 5.2 % 4.8-5.6 . Prediabetes: 5.7 - = 4548-4) 6.4 Diabetes: > 6.4 Glycemic contro l for adults with pk betes: <7.0Performed by:[facility] ([place]) [facility] Description: Hemoglobin A1c/Hemoglobin.total in Blood 2022-09-03 08:06:00 Test Item Value Reference Range Interpretation Comments Hemoglobin A1c (test code 5.2 % 4.8-5.6 . Prediabetes: 5.7 - = 4548-4) 6.4 Diabetes: > 6.4 Glycemic contro l for adults with pk betes: <7.0Performed by:[facility] ([place]) [facility] Description: Hemoglobin A1c/Hemoglobin.total in Blood 2022-09-03 08:06:00 Test Item Value Reference Range Interpretation Comments Hemoglobin A1c (test code 5.2 % 4.8-5.6 . Prediabetes: 5.7 - = 4548-4) 6.4 Diabetes: > 6.4 Glycemic contro l for adults with pk betes: <7.0Performed by:[facility] ([place]) [facility] Description: CBC With Differential/Kswfscmx5922-37-23 06:09:00 Test Item Value Reference Range Interpretation Comments WBC (test code = 6690-2) 3.4 x10E3/uL 3.4-10.8 RBC (test code = 789-8) 4.05 x10E6/uL 3.77-5.28 Hemoglobin (test code = 718-7) 13.4 g/dL 11.1-15.9 Hematocrit (test code = 4544-3) 38.9 % 34.0-46.6 MCV (test code = 787-2) 96 fL 79-97 MCH (test code = 785-6) 33.1 pg 26.6-33.0 H MCHC (test code = 786-4) 34.4 g/dL 31.5-35.7 RDW (test code = 788-0) 15.9 % 11.7-15.4 H Platelets (test code = 777-3) 184 x10E3/uL 150-450 Neutrophils (test code = 770-8) 43 % Not Estab. Lymphs (test code = 736-9) 46 % Not Estab. Monocytes (test code = 5905-5) 8 % Not Estab. Eos (test code = 713-8) 2 % Not Estab. Basos (test code = 706-2) 1 % Not Estab. Neutrophils (Absolute) (test 1.5 x10E3/uL 1.4-7.0 code = 751-8) Lymphs (Absolute) (test code = 1.5 x10E3/uL 0.7-3.1 731-0) Monocytes(Absolute) (test code 0.3 x10E3/uL 0.1-0.9 = 742-7) Eos (Absolute) (test code = 0.1 x10E3/uL 0.0-0.4 711-2) Baso (Absolute) (test code = 0.0 x10E3/uL 0.0-0.2 704-7) Immature Granulocytes (test 0 % Not Estab. code = 49804-6) Immature Grans (Abs) (test code 0.0 x10E3/uL 0.0-0.1 = 26100-3) NRBC (test code = 63969-9) Hematology Comments: (test code = 82438-9) [facility] Description: CBC With Differential/Ucbakuqo2679-88-71 06:09:00 Test Item Value Reference Range Interpretation Comments WBC (test code = 6690-2) 3.4 x10E3/uL 3.4-10.8 RBC (test code = 789-8) 4.05 x10E6/uL 3.77-5.28 Hemoglobin (test code = 718-7) 13.4 g/dL 11.1-15.9 Hematocrit (test code = 4544-3) 38.9 % 34.0-46.6 MCV (test code = 787-2) 96 fL 79-97 MCH (test code = 785-6) 33.1 pg 26.6-33.0 H MCHC (test code = 786-4) 34.4 g/dL 31.5-35.7 RDW (test code = 788-0) 15.9 % 11.7-15.4 H Platelets (test code = 777-3) 184 x10E3/uL 150-450 Neutrophils (test code = 770-8) 43 % Not Estab. Lymphs (test code = 736-9) 46 % Not Estab. Monocytes (test code = 5905-5) 8 % Not Estab. Eos (test code = 713-8) 2 % Not Estab. Basos (test code = 706-2) 1 % Not Estab. Neutrophils (Absolute) (test 1.5 x10E3/uL 1.4-7.0 code = 751-8) Lymphs (Absolute) (test code = 1.5 x10E3/uL 0.7-3.1 731-0) Monocytes(Absolute) (test code 0.3 x10E3/uL 0.1-0.9 = 742-7) Eos (Absolute) (test code = 0.1 x10E3/uL 0.0-0.4 711-2) Baso (Absolute) (test code = 0.0 x10E3/uL 0.0-0.2 704-7) Immature Granulocytes (test 0 % Not Estab. code = 09110-0) Immature Grans (Abs) (test code 0.0 x10E3/uL 0.0-0.1 = 53944-8) NRBC (test code = 27372-0) Hematology Comments: (test code = 53251-1) [facility] Description: CBC With Differential/Jxlakfgh5518-18-20 06:09:00 Test Item Value Reference Range Interpretation Comments WBC (test code = 6690-2) 3.4 x10E3/uL 3.4-10.8 RBC (test code = 789-8) 4.05 x10E6/uL 3.77-5.28 Hemoglobin (test code = 718-7) 13.4 g/dL 11.1-15.9 Hematocrit (test code = 4544-3) 38.9 % 34.0-46.6 MCV (test code = 787-2) 96 fL 79-97 MCH (test code = 785-6) 33.1 pg 26.6-33.0 H MCHC (test code = 786-4) 34.4 g/dL 31.5-35.7 RDW (test code = 788-0) 15.9 % 11.7-15.4 H Platelets (test code = 777-3) 184 x10E3/uL 150-450 Neutrophils (test code = 770-8) 43 % Not Estab. Lymphs (test code = 736-9) 46 % Not Estab. Monocytes (test code = 5905-5) 8 % Not Estab. Eos (test code = 713-8) 2 % Not Estab. Basos (test code = 706-2) 1 % Not Estab. Neutrophils (Absolute) (test 1.5 x10E3/uL 1.4-7.0 code = 751-8) Lymphs (Absolute) (test code = 1.5 x10E3/uL 0.7-3.1 731-0) Monocytes(Absolute) (test code 0.3 x10E3/uL 0.1-0.9 = 742-7) Eos (Absolute) (test code = 0.1 x10E3/uL 0.0-0.4 711-2) Baso (Absolute) (test code = 0.0 x10E3/uL 0.0-0.2 704-7) Immature Granulocytes (test 0 % Not Estab. code = 14143-7) Immature Grans (Abs) (test code 0.0 x10E3/uL 0.0-0.1 = 55592-6) NRBC (test code = 87294-6) Hematology Comments: (test code = 53225-8) [facility] Description: CBC With Differential/Nfqfbssx8453-34-45 06:09:00 Test Item Value Reference Range Interpretation Comments WBC (test code = 6690-2) 3.4 x10E3/uL 3.4-10.8 RBC (test code = 789-8) 4.05 x10E6/uL 3.77-5.28 Hemoglobin (test code = 718-7) 13.4 g/dL 11.1-15.9 Hematocrit (test code = 4544-3) 38.9 % 34.0-46.6 MCV (test code = 787-2) 96 fL 79-97 MCH (test code = 785-6) 33.1 pg 26.6-33.0 H MCHC (test code = 786-4) 34.4 g/dL 31.5-35.7 RDW (test code = 788-0) 15.9 % 11.7-15.4 H Platelets (test code = 777-3) 184 x10E3/uL 150-450 Neutrophils (test code = 770-8) 43 % Not Estab. Lymphs (test code = 736-9) 46 % Not Estab. Monocytes (test code = 5905-5) 8 % Not Estab. Eos (test code = 713-8) 2 % Not Estab. Basos (test code = 706-2) 1 % Not Estab. Neutrophils (Absolute) (test 1.5 x10E3/uL 1.4-7.0 code = 751-8) Lymphs (Absolute) (test code = 1.5 x10E3/uL 0.7-3.1 731-0) Monocytes(Absolute) (test code 0.3 x10E3/uL 0.1-0.9 = 742-7) Eos (Absolute) (test code = 0.1 x10E3/uL 0.0-0.4 711-2) Baso (Absolute) (test code = 0.0 x10E3/uL 0.0-0.2 704-7) Immature Granulocytes (test 0 % Not Estab. code = 83877-3) Immature Grans (Abs) (test code 0.0 x10E3/uL 0.0-0.1 = 70045-0) NRBC (test code = 00451-8) Hematology Comments: (test code = 56675-1) [facility] Description: CBC With Differential/Gfswykfy7921-99-37 06:09:00 Test Item Value Reference Range Interpretation Comments WBC (test code = 6690-2) 3.4 x10E3/uL 3.4-10.8 RBC (test code = 789-8) 4.05 x10E6/uL 3.77-5.28 Hemoglobin (test code = 718-7) 13.4 g/dL 11.1-15.9 Hematocrit (test code = 4544-3) 38.9 % 34.0-46.6 MCV (test code = 787-2) 96 fL 79-97 MCH (test code = 785-6) 33.1 pg 26.6-33.0 H MCHC (test code = 786-4) 34.4 g/dL 31.5-35.7 RDW (test code = 788-0) 15.9 % 11.7-15.4 H Platelets (test code = 777-3) 184 x10E3/uL 150-450 Neutrophils (test code = 770-8) 43 % Not Estab. Lymphs (test code = 736-9) 46 % Not Estab. Monocytes (test code = 5905-5) 8 % Not Estab. Eos (test code = 713-8) 2 % Not Estab. Basos (test code = 706-2) 1 % Not Estab. Neutrophils (Absolute) (test 1.5 x10E3/uL 1.4-7.0 code = 751-8) Lymphs (Absolute) (test code = 1.5 x10E3/uL 0.7-3.1 731-0) Monocytes(Absolute) (test code 0.3 x10E3/uL 0.1-0.9 = 742-7) Eos (Absolute) (test code = 0.1 x10E3/uL 0.0-0.4 711-2) Baso (Absolute) (test code = 0.0 x10E3/uL 0.0-0.2 704-7) Immature Granulocytes (test 0 % Not Estab. code = 33614-8) Immature Grans (Abs) (test code 0.0 x10E3/uL 0.0-0.1 = 59373-3) NRBC (test code = 55351-3) Hematology Comments: (test code = 80893-5) [facility] Description: CBC With Differential/Tktzvnau2118-78-63 06:09:00 Test Item Value Reference Range Interpretation Comments WBC (test code = 6690-2) 3.4 x10E3/uL 3.4-10.8 RBC (test code = 789-8) 4.05 x10E6/uL 3.77-5.28 Hemoglobin (test code = 718-7) 13.4 g/dL 11.1-15.9 Hematocrit (test code = 4544-3) 38.9 % 34.0-46.6 MCV (test code = 787-2) 96 fL 79-97 MCH (test code = 785-6) 33.1 pg 26.6-33.0 H MCHC (test code = 786-4) 34.4 g/dL 31.5-35.7 RDW (test code = 788-0) 15.9 % 11.7-15.4 H Platelets (test code = 777-3) 184 x10E3/uL 150-450 Neutrophils (test code = 770-8) 43 % Not Estab. Lymphs (test code = 736-9) 46 % Not Estab. Monocytes (test code = 5905-5) 8 % Not Estab. Eos (test code = 713-8) 2 % Not Estab. Basos (test code = 706-2) 1 % Not Estab. Neutrophils (Absolute) (test 1.5 x10E3/uL 1.4-7.0 code = 751-8) Lymphs (Absolute) (test code = 1.5 x10E3/uL 0.7-3.1 731-0) Monocytes(Absolute) (test code 0.3 x10E3/uL 0.1-0.9 = 742-7) Eos (Absolute) (test code = 0.1 x10E3/uL 0.0-0.4 711-2) Baso (Absolute) (test code = 0.0 x10E3/uL 0.0-0.2 704-7) Immature Granulocytes (test 0 % Not Estab. code = 52013-9) Immature Grans (Abs) (test code 0.0 x10E3/uL 0.0-0.1 = 52647-9) NRBC (test code = 26302-5) Hematology Comments: (test code = 18370-1) [facility] Description: CBC With Differential/Cfgswcoj9932-80-31 06:09:00 Test Item Value Reference Range Interpretation Comments WBC (test code = 6690-2) 3.4 x10E3/uL 3.4-10.8 RBC (test code = 789-8) 4.05 x10E6/uL 3.77-5.28 Hemoglobin (test code = 718-7) 13.4 g/dL 11.1-15.9 Hematocrit (test code = 4544-3) 38.9 % 34.0-46.6 MCV (test code = 787-2) 96 fL 79-97 MCH (test code = 785-6) 33.1 pg 26.6-33.0 H MCHC (test code = 786-4) 34.4 g/dL 31.5-35.7 RDW (test code = 788-0) 15.9 % 11.7-15.4 H Platelets (test code = 777-3) 184 x10E3/uL 150-450 Neutrophils (test code = 770-8) 43 % Not Estab. Lymphs (test code = 736-9) 46 % Not Estab. Monocytes (test code = 5905-5) 8 % Not Estab. Eos (test code = 713-8) 2 % Not Estab. Basos (test code = 706-2) 1 % Not Estab. Neutrophils (Absolute) (test 1.5 x10E3/uL 1.4-7.0 code = 751-8) Lymphs (Absolute) (test code = 1.5 x10E3/uL 0.7-3.1 731-0) Monocytes(Absolute) (test code 0.3 x10E3/uL 0.1-0.9 = 742-7) Eos (Absolute) (test code = 0.1 x10E3/uL 0.0-0.4 711-2) Baso (Absolute) (test code = 0.0 x10E3/uL 0.0-0.2 704-7) Immature Granulocytes (test 0 % Not Estab. code = 10202-7) Immature Grans (Abs) (test code 0.0 x10E3/uL 0.0-0.1 = 83868-3) NRBC (test code = 62233-9) Hematology Comments: (test code = 27181-5) [facility] Description: CBC With Differential/Nrsyyzyb2219-05-65 06:09:00 Test Item Value Reference Range Interpretation Comments WBC (test code = 6690-2) 3.4 x10E3/uL 3.4-10.8 RBC (test code = 789-8) 4.05 x10E6/uL 3.77-5.28 Hemoglobin (test code = 718-7) 13.4 g/dL 11.1-15.9 Hematocrit (test code = 4544-3) 38.9 % 34.0-46.6 MCV (test code = 787-2) 96 fL 79-97 MCH (test code = 785-6) 33.1 pg 26.6-33.0 H MCHC (test code = 786-4) 34.4 g/dL 31.5-35.7 RDW (test code = 788-0) 15.9 % 11.7-15.4 H Platelets (test code = 777-3) 184 x10E3/uL 150-450 Neutrophils (test code = 770-8) 43 % Not Estab. Lymphs (test code = 736-9) 46 % Not Estab. Monocytes (test code = 5905-5) 8 % Not Estab. Eos (test code = 713-8) 2 % Not Estab. Basos (test code = 706-2) 1 % Not Estab. Neutrophils (Absolute) (test 1.5 x10E3/uL 1.4-7.0 code = 751-8) Lymphs (Absolute) (test code = 1.5 x10E3/uL 0.7-3.1 731-0) Monocytes(Absolute) (test code 0.3 x10E3/uL 0.1-0.9 = 742-7) Eos (Absolute) (test code = 0.1 x10E3/uL 0.0-0.4 711-2) Baso (Absolute) (test code = 0.0 x10E3/uL 0.0-0.2 704-7) Immature Granulocytes (test 0 % Not Estab. code = 91645-6) Immature Grans (Abs) (test code 0.0 x10E3/uL 0.0-0.1 = 98754-2) NRBC (test code = 29357-5) Hematology Comments: (test code = 32506-9) [facility] Description: CBC With Differential/Cfrxtxgu2344-06-73 06:09:00 Test Item Value Reference Range Interpretation Comments WBC (test code = 6690-2) 3.4 x10E3/uL 3.4-10.8 RBC (test code = 789-8) 4.05 x10E6/uL 3.77-5.28 Hemoglobin (test code = 718-7) 13.4 g/dL 11.1-15.9 Hematocrit (test code = 4544-3) 38.9 % 34.0-46.6 MCV (test code = 787-2) 96 fL 79-97 MCH (test code = 785-6) 33.1 pg 26.6-33.0 H MCHC (test code = 786-4) 34.4 g/dL 31.5-35.7 RDW (test code = 788-0) 15.9 % 11.7-15.4 H Platelets (test code = 777-3) 184 x10E3/uL 150-450 Neutrophils (test code = 770-8) 43 % Not Estab. Lymphs (test code = 736-9) 46 % Not Estab. Monocytes (test code = 5905-5) 8 % Not Estab. Eos (test code = 713-8) 2 % Not Estab. Basos (test code = 706-2) 1 % Not Estab. Neutrophils (Absolute) (test 1.5 x10E3/uL 1.4-7.0 code = 751-8) Lymphs (Absolute) (test code = 1.5 x10E3/uL 0.7-3.1 731-0) Monocytes(Absolute) (test code 0.3 x10E3/uL 0.1-0.9 = 742-7) Eos (Absolute) (test code = 0.1 x10E3/uL 0.0-0.4 711-2) Baso (Absolute) (test code = 0.0 x10E3/uL 0.0-0.2 704-7) Immature Granulocytes (test 0 % Not Estab. code = 21695-0) Immature Grans (Abs) (test code 0.0 x10E3/uL 0.0-0.1 = 45764-4) NRBC (test code = 30507-4) Hematology Comments: (test code = 45965-8) [facility] Description: CBC With Differential/Hbaotpcf7788-29-61 06:09:00 Test Item Value Reference Range Interpretation Comments WBC (test code = 6690-2) 3.4 x10E3/uL 3.4-10.8 RBC (test code = 789-8) 4.05 x10E6/uL 3.77-5.28 Hemoglobin (test code = 718-7) 13.4 g/dL 11.1-15.9 Hematocrit (test code = 4544-3) 38.9 % 34.0-46.6 MCV (test code = 787-2) 96 fL 79-97 MCH (test code = 785-6) 33.1 pg 26.6-33.0 H MCHC (test code = 786-4) 34.4 g/dL 31.5-35.7 RDW (test code = 788-0) 15.9 % 11.7-15.4 H Platelets (test code = 777-3) 184 x10E3/uL 150-450 Neutrophils (test code = 770-8) 43 % Not Estab. Lymphs (test code = 736-9) 46 % Not Estab. Monocytes (test code = 5905-5) 8 % Not Estab. Eos (test code = 713-8) 2 % Not Estab. Basos (test code = 706-2) 1 % Not Estab. Neutrophils (Absolute) (test 1.5 x10E3/uL 1.4-7.0 code = 751-8) Lymphs (Absolute) (test code = 1.5 x10E3/uL 0.7-3.1 731-0) Monocytes(Absolute) (test code 0.3 x10E3/uL 0.1-0.9 = 742-7) Eos (Absolute) (test code = 0.1 x10E3/uL 0.0-0.4 711-2) Baso (Absolute) (test code = 0.0 x10E3/uL 0.0-0.2 704-7) Immature Granulocytes (test 0 % Not Estab. code = 16776-3) Immature Grans (Abs) (test code 0.0 x10E3/uL 0.0-0.1 = 45224-5) NRBC (test code = 70154-6) Hematology Comments: (test code = 14436-3) [facility] Description: CBC With Differential/Xzwbedko0129-26-46 06:09:00 Test Item Value Reference Range Interpretation Comments WBC (test code = 6690-2) 3.4 x10E3/uL 3.4-10.8 RBC (test code = 789-8) 4.05 x10E6/uL 3.77-5.28 Hemoglobin (test code = 718-7) 13.4 g/dL 11.1-15.9 Hematocrit (test code = 4544-3) 38.9 % 34.0-46.6 MCV (test code = 787-2) 96 fL 79-97 MCH (test code = 785-6) 33.1 pg 26.6-33.0 H MCHC (test code = 786-4) 34.4 g/dL 31.5-35.7 RDW (test code = 788-0) 15.9 % 11.7-15.4 H Platelets (test code = 777-3) 184 x10E3/uL 150-450 Neutrophils (test code = 770-8) 43 % Not Estab. Lymphs (test code = 736-9) 46 % Not Estab. Monocytes (test code = 5905-5) 8 % Not Estab. Eos (test code = 713-8) 2 % Not Estab. Basos (test code = 706-2) 1 % Not Estab. Neutrophils (Absolute) (test 1.5 x10E3/uL 1.4-7.0 code = 751-8) Lymphs (Absolute) (test code = 1.5 x10E3/uL 0.7-3.1 731-0) Monocytes(Absolute) (test code 0.3 x10E3/uL 0.1-0.9 = 742-7) Eos (Absolute) (test code = 0.1 x10E3/uL 0.0-0.4 711-2) Baso (Absolute) (test code = 0.0 x10E3/uL 0.0-0.2 704-7) Immature Granulocytes (test 0 % Not Estab. code = 90160-6) Immature Grans (Abs) (test code 0.0 x10E3/uL 0.0-0.1 = 55243-9) NRBC (test code = 32930-1) Hematology Comments: (test code = 16061-0) [facility] Description: CBC With Differential/Orbbnqpg3589-42-51 06:09:00 Test Item Value Reference Range Interpretation Comments WBC (test code = 6690-2) 3.4 x10E3/uL 3.4-10.8 RBC (test code = 789-8) 4.05 x10E6/uL 3.77-5.28 Hemoglobin (test code = 718-7) 13.4 g/dL 11.1-15.9 Hematocrit (test code = 4544-3) 38.9 % 34.0-46.6 MCV (test code = 787-2) 96 fL 79-97 MCH (test code = 785-6) 33.1 pg 26.6-33.0 H MCHC (test code = 786-4) 34.4 g/dL 31.5-35.7 RDW (test code = 788-0) 15.9 % 11.7-15.4 H Platelets (test code = 777-3) 184 x10E3/uL 150-450 Neutrophils (test code = 770-8) 43 % Not Estab. Lymphs (test code = 736-9) 46 % Not Estab. Monocytes (test code = 5905-5) 8 % Not Estab. Eos (test code = 713-8) 2 % Not Estab. Basos (test code = 706-2) 1 % Not Estab. Neutrophils (Absolute) (test 1.5 x10E3/uL 1.4-7.0 code = 751-8) Lymphs (Absolute) (test code = 1.5 x10E3/uL 0.7-3.1 731-0) Monocytes(Absolute) (test code 0.3 x10E3/uL 0.1-0.9 = 742-7) Eos (Absolute) (test code = 0.1 x10E3/uL 0.0-0.4 711-2) Baso (Absolute) (test code = 0.0 x10E3/uL 0.0-0.2 704-7) Immature Granulocytes (test 0 % Not Estab. code = 86913-0) Immature Grans (Abs) (test code 0.0 x10E3/uL 0.0-0.1 = 24316-3) NRBC (test code = 23000-8) Hematology Comments: (test code = 54410-4) [facility] Description: CBC With Differential/Vkbuvvtw4687-05-19 06:09:00 Test Item Value Reference Range Interpretation Comments WBC (test code = 6690-2) 3.4 x10E3/uL 3.4-10.8 RBC (test code = 789-8) 4.05 x10E6/uL 3.77-5.28 Hemoglobin (test code = 718-7) 13.4 g/dL 11.1-15.9 Hematocrit (test code = 4544-3) 38.9 % 34.0-46.6 MCV (test code = 787-2) 96 fL 79-97 MCH (test code = 785-6) 33.1 pg 26.6-33.0 H MCHC (test code = 786-4) 34.4 g/dL 31.5-35.7 RDW (test code = 788-0) 15.9 % 11.7-15.4 H Platelets (test code = 777-3) 184 x10E3/uL 150-450 Neutrophils (test code = 770-8) 43 % Not Estab. Lymphs (test code = 736-9) 46 % Not Estab. Monocytes (test code = 5905-5) 8 % Not Estab. Eos (test code = 713-8) 2 % Not Estab. Basos (test code = 706-2) 1 % Not Estab. Neutrophils (Absolute) (test 1.5 x10E3/uL 1.4-7.0 code = 751-8) Lymphs (Absolute) (test code = 1.5 x10E3/uL 0.7-3.1 731-0) Monocytes(Absolute) (test code 0.3 x10E3/uL 0.1-0.9 = 742-7) Eos (Absolute) (test code = 0.1 x10E3/uL 0.0-0.4 711-2) Baso (Absolute) (test code = 0.0 x10E3/uL 0.0-0.2 704-7) Immature Granulocytes (test 0 % Not Estab. code = 24855-8) Immature Grans (Abs) (test code 0.0 x10E3/uL 0.0-0.1 = 70506-9) NRBC (test code = 11267-0) Hematology Comments: (test code = 83193-5) [facility] Description: CBC With Differential/Guaslwtr6889-99-57 06:09:00 Test Item Value Reference Range Interpretation Comments WBC (test code = 6690-2) 3.4 x10E3/uL 3.4-10.8 RBC (test code = 789-8) 4.05 x10E6/uL 3.77-5.28 Hemoglobin (test code = 718-7) 13.4 g/dL 11.1-15.9 Hematocrit (test code = 4544-3) 38.9 % 34.0-46.6 MCV (test code = 787-2) 96 fL 79-97 MCH (test code = 785-6) 33.1 pg 26.6-33.0 H MCHC (test code = 786-4) 34.4 g/dL 31.5-35.7 RDW (test code = 788-0) 15.9 % 11.7-15.4 H Platelets (test code = 777-3) 184 x10E3/uL 150-450 Neutrophils (test code = 770-8) 43 % Not Estab. Lymphs (test code = 736-9) 46 % Not Estab. Monocytes (test code = 5905-5) 8 % Not Estab. Eos (test code = 713-8) 2 % Not Estab. Basos (test code = 706-2) 1 % Not Estab. Neutrophils (Absolute) (test 1.5 x10E3/uL 1.4-7.0 code = 751-8) Lymphs (Absolute) (test code = 1.5 x10E3/uL 0.7-3.1 731-0) Monocytes(Absolute) (test code 0.3 x10E3/uL 0.1-0.9 = 742-7) Eos (Absolute) (test code = 0.1 x10E3/uL 0.0-0.4 711-2) Baso (Absolute) (test code = 0.0 x10E3/uL 0.0-0.2 704-7) Immature Granulocytes (test 0 % Not Estab. code = 16014-4) Immature Grans (Abs) (test code 0.0 x10E3/uL 0.0-0.1 = 18836-0) NRBC (test code = 77643-8) Hematology Comments: (test code = 95046-7) [facility] Description: CBC With Differential/Fmmmhajj5737-51-32 06:09:00 Test Item Value Reference Range Interpretation Comments WBC (test code = 6690-2) 3.4 x10E3/uL 3.4-10.8 RBC (test code = 789-8) 4.05 x10E6/uL 3.77-5.28 Hemoglobin (test code = 718-7) 13.4 g/dL 11.1-15.9 Hematocrit (test code = 4544-3) 38.9 % 34.0-46.6 MCV (test code = 787-2) 96 fL 79-97 MCH (test code = 785-6) 33.1 pg 26.6-33.0 H MCHC (test code = 786-4) 34.4 g/dL 31.5-35.7 RDW (test code = 788-0) 15.9 % 11.7-15.4 H Platelets (test code = 777-3) 184 x10E3/uL 150-450 Neutrophils (test code = 770-8) 43 % Not Estab. Lymphs (test code = 736-9) 46 % Not Estab. Monocytes (test code = 5905-5) 8 % Not Estab. Eos (test code = 713-8) 2 % Not Estab. Basos (test code = 706-2) 1 % Not Estab. Neutrophils (Absolute) (test 1.5 x10E3/uL 1.4-7.0 code = 751-8) Lymphs (Absolute) (test code = 1.5 x10E3/uL 0.7-3.1 731-0) Monocytes(Absolute) (test code 0.3 x10E3/uL 0.1-0.9 = 742-7) Eos (Absolute) (test code = 0.1 x10E3/uL 0.0-0.4 711-2) Baso (Absolute) (test code = 0.0 x10E3/uL 0.0-0.2 704-7) Immature Granulocytes (test 0 % Not Estab. code = 04369-0) Immature Grans (Abs) (test code 0.0 x10E3/uL 0.0-0.1 = 33473-5) NRBC (test code = 26801-5) Hematology Comments: (test code = 03064-7) [facility] Description: CBC With Differential/Ujuetnwq8533-25-85 06:09:00 Test Item Value Reference Range Interpretation Comments WBC (test code = 6690-2) 3.4 x10E3/uL 3.4-10.8 RBC (test code = 789-8) 4.05 x10E6/uL 3.77-5.28 Hemoglobin (test code = 718-7) 13.4 g/dL 11.1-15.9 Hematocrit (test code = 4544-3) 38.9 % 34.0-46.6 MCV (test code = 787-2) 96 fL 79-97 MCH (test code = 785-6) 33.1 pg 26.6-33.0 H MCHC (test code = 786-4) 34.4 g/dL 31.5-35.7 RDW (test code = 788-0) 15.9 % 11.7-15.4 H Platelets (test code = 777-3) 184 x10E3/uL 150-450 Neutrophils (test code = 770-8) 43 % Not Estab. Lymphs (test code = 736-9) 46 % Not Estab. Monocytes (test code = 5905-5) 8 % Not Estab. Eos (test code = 713-8) 2 % Not Estab. Basos (test code = 706-2) 1 % Not Estab. Neutrophils (Absolute) (test 1.5 x10E3/uL 1.4-7.0 code = 751-8) Lymphs (Absolute) (test code = 1.5 x10E3/uL 0.7-3.1 731-0) Monocytes(Absolute) (test code 0.3 x10E3/uL 0.1-0.9 = 742-7) Eos (Absolute) (test code = 0.1 x10E3/uL 0.0-0.4 711-2) Baso (Absolute) (test code = 0.0 x10E3/uL 0.0-0.2 704-7) Immature Granulocytes (test 0 % Not Estab. code = 67879-9) Immature Grans (Abs) (test code 0.0 x10E3/uL 0.0-0.1 = 90894-7) NRBC (test code = 54226-2) Hematology Comments: (test code = 43254-7) [facility] Description: CBC With Differential/Fvdurvkl6226-79-74 06:09:00 Test Item Value Reference Range Interpretation Comments WBC (test code = 6690-2) 3.4 x10E3/uL 3.4-10.8 RBC (test code = 789-8) 4.05 x10E6/uL 3.77-5.28 Hemoglobin (test code = 718-7) 13.4 g/dL 11.1-15.9 Hematocrit (test code = 4544-3) 38.9 % 34.0-46.6 MCV (test code = 787-2) 96 fL 79-97 MCH (test code = 785-6) 33.1 pg 26.6-33.0 H MCHC (test code = 786-4) 34.4 g/dL 31.5-35.7 RDW (test code = 788-0) 15.9 % 11.7-15.4 H Platelets (test code = 777-3) 184 x10E3/uL 150-450 Neutrophils (test code = 770-8) 43 % Not Estab. Lymphs (test code = 736-9) 46 % Not Estab. Monocytes (test code = 5905-5) 8 % Not Estab. Eos (test code = 713-8) 2 % Not Estab. Basos (test code = 706-2) 1 % Not Estab. Neutrophils (Absolute) (test 1.5 x10E3/uL 1.4-7.0 code = 751-8) Lymphs (Absolute) (test code = 1.5 x10E3/uL 0.7-3.1 731-0) Monocytes(Absolute) (test code 0.3 x10E3/uL 0.1-0.9 = 742-7) Eos (Absolute) (test code = 0.1 x10E3/uL 0.0-0.4 711-2) Baso (Absolute) (test code = 0.0 x10E3/uL 0.0-0.2 704-7) Immature Granulocytes (test 0 % Not Estab. code = 95827-9) Immature Grans (Abs) (test code 0.0 x10E3/uL 0.0-0.1 = 05788-1) NRBC (test code = 53476-8) Hematology Comments: (test code = 34924-3) [facility] Description: CBC With Differential/Vdvsvpqw7960-96-40 06:09:00 Test Item Value Reference Range Interpretation Comments WBC (test code = 6690-2) 3.4 x10E3/uL 3.4-10.8 RBC (test code = 789-8) 4.05 x10E6/uL 3.77-5.28 Hemoglobin (test code = 718-7) 13.4 g/dL 11.1-15.9 Hematocrit (test code = 4544-3) 38.9 % 34.0-46.6 MCV (test code = 787-2) 96 fL 79-97 MCH (test code = 785-6) 33.1 pg 26.6-33.0 H MCHC (test code = 786-4) 34.4 g/dL 31.5-35.7 RDW (test code = 788-0) 15.9 % 11.7-15.4 H Platelets (test code = 777-3) 184 x10E3/uL 150-450 Neutrophils (test code = 770-8) 43 % Not Estab. Lymphs (test code = 736-9) 46 % Not Estab. Monocytes (test code = 5905-5) 8 % Not Estab. Eos (test code = 713-8) 2 % Not Estab. Basos (test code = 706-2) 1 % Not Estab. Neutrophils (Absolute) (test 1.5 x10E3/uL 1.4-7.0 code = 751-8) Lymphs (Absolute) (test code = 1.5 x10E3/uL 0.7-3.1 731-0) Monocytes(Absolute) (test code 0.3 x10E3/uL 0.1-0.9 = 742-7) Eos (Absolute) (test code = 0.1 x10E3/uL 0.0-0.4 711-2) Baso (Absolute) (test code = 0.0 x10E3/uL 0.0-0.2 704-7) Immature Granulocytes (test 0 % Not Estab. code = 71578-2) Immature Grans (Abs) (test code 0.0 x10E3/uL 0.0-0.1 = 95372-8) NRBC (test code = 76448-3) Hematology Comments: (test code = 10961-3) [facility] Description: CBC With Differential/Slwglgkm6538-58-82 06:09:00 Test Item Value Reference Range Interpretation Comments WBC (test code = 6690-2) 3.4 x10E3/uL 3.4-10.8 RBC (test code = 789-8) 4.05 x10E6/uL 3.77-5.28 Hemoglobin (test code = 718-7) 13.4 g/dL 11.1-15.9 Hematocrit (test code = 4544-3) 38.9 % 34.0-46.6 MCV (test code = 787-2) 96 fL 79-97 MCH (test code = 785-6) 33.1 pg 26.6-33.0 H MCHC (test code = 786-4) 34.4 g/dL 31.5-35.7 RDW (test code = 788-0) 15.9 % 11.7-15.4 H Platelets (test code = 777-3) 184 x10E3/uL 150-450 Neutrophils (test code = 770-8) 43 % Not Estab. Lymphs (test code = 736-9) 46 % Not Estab. Monocytes (test code = 5905-5) 8 % Not Estab. Eos (test code = 713-8) 2 % Not Estab. Basos (test code = 706-2) 1 % Not Estab. Neutrophils (Absolute) (test 1.5 x10E3/uL 1.4-7.0 code = 751-8) Lymphs (Absolute) (test code = 1.5 x10E3/uL 0.7-3.1 731-0) Monocytes(Absolute) (test code 0.3 x10E3/uL 0.1-0.9 = 742-7) Eos (Absolute) (test code = 0.1 x10E3/uL 0.0-0.4 711-2) Baso (Absolute) (test code = 0.0 x10E3/uL 0.0-0.2 704-7) Immature Granulocytes (test 0 % Not Estab. code = 07131-4) Immature Grans (Abs) (test code 0.0 x10E3/uL 0.0-0.1 = 84213-1) NRBC (test code = 16025-4) Hematology Comments: (test code = 89198-7) [facility] Description: CBC With Differential/Xpvuvcaa1441-13-23 06:09:00 Test Item Value Reference Range Interpretation Comments WBC (test code = 6690-2) 3.4 x10E3/uL 3.4-10.8 RBC (test code = 789-8) 4.05 x10E6/uL 3.77-5.28 Hemoglobin (test code = 718-7) 13.4 g/dL 11.1-15.9 Hematocrit (test code = 4544-3) 38.9 % 34.0-46.6 MCV (test code = 787-2) 96 fL 79-97 MCH (test code = 785-6) 33.1 pg 26.6-33.0 H MCHC (test code = 786-4) 34.4 g/dL 31.5-35.7 RDW (test code = 788-0) 15.9 % 11.7-15.4 H Platelets (test code = 777-3) 184 x10E3/uL 150-450 Neutrophils (test code = 770-8) 43 % Not Estab. Lymphs (test code = 736-9) 46 % Not Estab. Monocytes (test code = 5905-5) 8 % Not Estab. Eos (test code = 713-8) 2 % Not Estab. Basos (test code = 706-2) 1 % Not Estab. Neutrophils (Absolute) (test 1.5 x10E3/uL 1.4-7.0 code = 751-8) Lymphs (Absolute) (test code = 1.5 x10E3/uL 0.7-3.1 731-0) Monocytes(Absolute) (test code 0.3 x10E3/uL 0.1-0.9 = 742-7) Eos (Absolute) (test code = 0.1 x10E3/uL 0.0-0.4 711-2) Baso (Absolute) (test code = 0.0 x10E3/uL 0.0-0.2 704-7) Immature Granulocytes (test 0 % Not Estab. code = 89119-6) Immature Grans (Abs) (test code 0.0 x10E3/uL 0.0-0.1 = 94623-5) NRBC (test code = 30186-4) Hematology Comments: (test code = 65280-6) [facility] Description: CBC With Differential/Ohuiljdg4778-85-98 06:09:00 Test Item Value Reference Range Interpretation Comments WBC (test code = 6690-2) 3.4 x10E3/uL 3.4-10.8 RBC (test code = 789-8) 4.05 x10E6/uL 3.77-5.28 Hemoglobin (test code = 718-7) 13.4 g/dL 11.1-15.9 Hematocrit (test code = 4544-3) 38.9 % 34.0-46.6 MCV (test code = 787-2) 96 fL 79-97 MCH (test code = 785-6) 33.1 pg 26.6-33.0 H MCHC (test code = 786-4) 34.4 g/dL 31.5-35.7 RDW (test code = 788-0) 15.9 % 11.7-15.4 H Platelets (test code = 777-3) 184 x10E3/uL 150-450 Neutrophils (test code = 770-8) 43 % Not Estab. Lymphs (test code = 736-9) 46 % Not Estab. Monocytes (test code = 5905-5) 8 % Not Estab. Eos (test code = 713-8) 2 % Not Estab. Basos (test code = 706-2) 1 % Not Estab. Neutrophils (Absolute) (test 1.5 x10E3/uL 1.4-7.0 code = 751-8) Lymphs (Absolute) (test code = 1.5 x10E3/uL 0.7-3.1 731-0) Monocytes(Absolute) (test code 0.3 x10E3/uL 0.1-0.9 = 742-7) Eos (Absolute) (test code = 0.1 x10E3/uL 0.0-0.4 711-2) Baso (Absolute) (test code = 0.0 x10E3/uL 0.0-0.2 704-7) Immature Granulocytes (test 0 % Not Estab. code = 49480-2) Immature Grans (Abs) (test code 0.0 x10E3/uL 0.0-0.1 = 76356-8) NRBC (test code = 22716-9) Hematology Comments: (test code = 52709-3) [facility] Description: CBC With Differential/Mtwmewbg8600-40-04 06:09:00 Test Item Value Reference Range Interpretation Comments WBC (test code = 6690-2) 3.4 x10E3/uL 3.4-10.8 RBC (test code = 789-8) 4.05 x10E6/uL 3.77-5.28 Hemoglobin (test code = 718-7) 13.4 g/dL 11.1-15.9 Hematocrit (test code = 4544-3) 38.9 % 34.0-46.6 MCV (test code = 787-2) 96 fL 79-97 MCH (test code = 785-6) 33.1 pg 26.6-33.0 H MCHC (test code = 786-4) 34.4 g/dL 31.5-35.7 RDW (test code = 788-0) 15.9 % 11.7-15.4 H Platelets (test code = 777-3) 184 x10E3/uL 150-450 Neutrophils (test code = 770-8) 43 % Not Estab. Lymphs (test code = 736-9) 46 % Not Estab. Monocytes (test code = 5905-5) 8 % Not Estab. Eos (test code = 713-8) 2 % Not Estab. Basos (test code = 706-2) 1 % Not Estab. Neutrophils (Absolute) (test 1.5 x10E3/uL 1.4-7.0 code = 751-8) Lymphs (Absolute) (test code = 1.5 x10E3/uL 0.7-3.1 731-0) Monocytes(Absolute) (test code 0.3 x10E3/uL 0.1-0.9 = 742-7) Eos (Absolute) (test code = 0.1 x10E3/uL 0.0-0.4 711-2) Baso (Absolute) (test code = 0.0 x10E3/uL 0.0-0.2 704-7) Immature Granulocytes (test 0 % Not Estab. code = 65103-7) Immature Grans (Abs) (test code 0.0 x10E3/uL 0.0-0.1 = 16040-8) NRBC (test code = 16271-7) Hematology Comments: (test code = 13316-6) QurizhAidnwnZTU4794-12-61 10:10:5012 LEAD EKG FOR [facility]: 0170-11-38Rhg Name: GARY WELLS Department: OCOPatient ID: [id number] Room: Gender: F Load Planner: : 1960 Requested By: MILDRED PURI AOrder Number: [id number] Reading MD: Geraldo STOUT MeasurementsIntervals [place] Rate: 63 P: 34PR: 114 QRS: 62QRSD: 88 T: 35QT: 412 QTc: 419 Interpretive StatementsSINUS RHYTHM WITH SHORT ND INTERVALOtherwise Normal ECGElectronically Signed On 05-07-2022 13:07:54 CDT by Geraldo PEREZ [place] [id number] 10:10:5012 LEAD EKG FOR P [facility] Test Date: 4971-55-22Poo Name: GARY WELLS Department: OCOPatient ID: [id number] Room: Gender: F Load Planner: : 1960 Requested By: MILDRED PURI AOrder Number: [id number] Reading MD: Geraldo STOUT MeasurementsIntervals [place] Rate: 63P: 34PR: 114 QRS: 62QRSD: 88 T: 35QT: 412 QTc: 419 Interpretive StatementsSINUS RHYTHM WITH SHORT ND INTERVALOtherwise Normal ECGElectronically Signed On 05-07-2022 13:07:54 CDT by Geraldo STOUTDae [place] [id number] 10:10:5012 LEAD EKG FOR P [facility] Test Date: 7238-18-89Hps Name: GARY WELLS Department: OCOPatient ID: [id number] Room: Gender: F Load Planner: : 1960 Requested By: MILDRED PURI AOrder Number: [id number] Reading MD: Geraldo STOUT MeasurementsIntervals [place] Rate: 63 P: 34PR: 114 QRS: 62QRSD: 88 T: 35QT: 412 QTc: 419 Interpretive StatementsSINUS RHYTHM WITH SHORT PRINTERVALOtherwise Normal ECGElectronically Signed On 05-07-2022 13:07:54 CDT by Geraldo STOUTDae [place] [id number] 10:10:5012 LEAD EKG FOR P [facility] Test Date: 7020-60-65Pwo Name: GARY WELLS Department: OCOPatient ID: [id number] Room: Gender: F Load Planner: : 1960 Requested By: MILDRED PURI AOrder Number: [id number] Reading MD: Geraldo STOUT MeasurementsIntervals [place] Rate: 63P: 34PR: 114 QRS: 62QRSD: 88 T: 35QT: 412 QTc: 419 Interpretive StatementsSINUS RHYTHM WITH SHORT ND INTERVALOtherwise Normal ECGElectronically Signed On 05-07-2022 13:07:54 CDT by [id number] 10:10:5012 LEAD EKG FOR P [facility] Test Date: 7894-50-89Wee Name: GARY WELLS Department: OCOPatient ID: [id number] Room: Gender: F Load Planner: : 1960 Requested By: MILDRED PURI AOrder Number: [id number] Reading MD: Geraldo STOUT MeasurementsIntervals [place] Rate: 63 P: 34PR: 114 QRS: 62QRSD: 88 T: 35QT: 412 QTc: 419 Interpretive StatementsSINUS RHYTHM WITH SHORT ND INTERVALOtherwise Normal ECGElectronically Signed On 05-07-2022 13:07:54 CDT by Geraldo PEREZ [place] [id number] 10:10:5012 LEAD EKG FOR P [facility] Test Date: 5029-82-96Jsq Name: GARY WELLS Department: OCOPatient ID: [id number] Room: Gender: F Load Planner: : 1960 Requested By: MILDRED PURI AOrder Number: [id number] Reading MD: Geraldo STOUT MeasurementsIntervals [place] Rate: 63 P: 34PR: 114 QRS: 62QRSD: 88 T: 35QT: 412 QTc: 419 Interpretive StatementsSINUS RHYTHM WITH SHORT ND INTERVALOtherwise Normal ECGElectronically Signed On 05-07-2022 13:07:54 CDT [facility] [id number] 10:10:5012 LEAD EKG FOR P [facility] Test Date: 9012-40-42Mel Name: GARY WELLS Department: OCOPatient ID: [id number] Room: Gender: F Load Planner: : 1960 Requested By: MILDRED PURI AOrder Number: [id number] Reading MD: Geraldo STOUT MeasurementsIntervals [place] Rate: 63P: 34PR: 114 QRS: 62QRSD: 88 T: 35QT: 412 QTc: 419 Interpretive StatementsSINUS RHYTHM WITH SHORT ND INTERVALOtherwise Normal ECGElectronically Signed On 05-07-2022 13:07:54 CDT by Geraldo PEREZ [place] [id number] 10:10:5012 LEAD EKG FOR P [facility] Test Date: 2129-69-29Nlw Name: GARY WELLS Department: OCOPatient ID: [id number] Room: Gender: F Load Planner: : 1960 Requested By: IMLDRED PURI AOrder Number: [id number] Reading MD: Geraldo STOUT MeasurementsIntervals [place] Rate: 63 P: 34PR: 114 QRS: 62QRSD: 88 T: 35QT: 412 QTc: 419 Interpretive StatementsSINUS RHYTHM WITH SHORT ND INTERVALOtherwise Normal ECGElectronically Signed On 05-07-2022 13:07:54 CDT by Geraldo PEREZ [place] [id number] 10:10:5012 LEAD EKG FOR P [facility] Test Date: 2418-80-31Sjl Name: GARY WELLS Department: OCOPatient ID: [id number] Room: Gender: F Load Planner: : 1960 Requested By: MIDLRED PURI AOrder Number: [id number] Reading MD: Geraldo STOUT MeasurementsIntervals [place] Rate: 63 P: 34PR: 114 QRS: 62QRSD: 88 T: 35QT: 412 QTc: 419 Interpretive StatementsSINUS RHYTHM WITH SHORT PRINTERVALOtherwise Normal ECGElectronically Signed On 05-07-2022 13:07:54 CDT by Geraldo PEREZ [place] [id number] 10:10:5012 LEAD EKG FOR P [facility] Test Date: 4319-14-09Nzb Name: GARY WELLS Department: OCOPatient ID: [id number] Room: Gender: F Load Planner: : 1960 Requested By: MILDRED PURI AOrder Number: [id number] Reading MD: Geraldo STOUT MeasurementsIntervals [place] Rate: 63 P: 34PR: 114 QRS: 62QRSD: 88 T: 35QT: 412 QTc: 419 Interpretive StatementsSINUS RHYTHM WITH SHORT ND INTERVALOtherwise Normal ECGElectronically Signed On 05-07-2022 13:07:54 CDT by Geraldo PEREZ [place] [id number] 10:10:5012 LEAD EKG FOR [facility] Test Date: 9397-01-61Jfd Name: GARY WELLS Department: OCOPatient ID: [id number] Room: Gender: F Load Planner: : 1960 Requested By: MILDRED PURI AOrder Number: [id number] Reading MD: Geraldo STOUT MeasurementsIntervals [place] Rate: 63 P: 34PR: 114 QRS: 62QRSD: 88 T: 35QT: 412 QTc: 419 Interpretive StatementsSINUS RHYTHM WITH SHORT ND INTERVALOtherwise Normal ECGElectronically Signed On 05-07-2022 13:07:54 CDT by Geraldo PEREZ [place] [id number] 10:10:5012 LEAD EKG FOR [facility] Test Date: 3632-58-59Jir Name: GARY WELLS Department: OCOPatient ID: [id number] Room: Gender: F Load Planner: : 1960 Requested By: MILDRED PURI AOrder Number: [id number] Reading MD: Geraldo STOUT MeasurementsIntervals [place] Rate: 63 P: 34PR: 114 QRS: 62QRSD: 88 T: 35QT: 412 QTc: 419 Interpretive StatementsSINUS RHYTHM WITH SHORT ND INTERVALOtherwise Normal ECGElectronically Signed On 05-07-2022 13:07:54 CDT by Geraldo PEREZ [place] [id number] 10:10:5012 LEAD EKG FOR [facility] Test Date: 9640-57-39Fvh Name: GARY WELLS Department: OCOPatient ID: [id number] Room: Gender: F Load Planner: : 1960 Requested By: MILDRED PURI AOrder Number: [id number] Reading MD: Geraldo STOUT MeasurementsIntervals [place] Rate: 63P: 34PR: 114 QRS: 62QRSD: 88 T: 35QT: 412 QTc: 419 Interpretive StatementsSINUS RHYTHM WITH SHORT ND INTERVALOtherwise Normal ECGElectronically Signed On 05-07-2022 13:07:54 CDT by Geraldo PEREZ [place] [id number] 10:10:5012 LEAD EKG FOR [facility] Test Date: 5918-24-82Kjf Name: GARY WELLS Department: OCOPatient ID: [id number] Room: Gender: F Load Planner: : 1960 Requested By: MILDRED PURI AOrder Number: [id number] Reading MD: Geraldo STOUT MeasurementsIntervals [place] Rate: 63 P: 34PR: 114 QRS: 62QRSD: 88 T: 35QT: 412 QTc: 419 Interpretive StatementsSINUS RHYTHM WITH SHORT ND INTERVALOtherwise Normal ECGElectronically Signed On 05-07-2022 13:07:54 CDT by Geraldo PEREZ [place] [id number] 10:10:5012 LEAD EKG FOR [facility] Test Date: 9158-75-21Azc Name: GARY WELLS Department: OCOPatient ID: [id number] Room: Gender: F Load Planner: : 1960 Requested By: MILDRED PURI AOrder Number: [id number] Reading MD: Geraldo STOUT MeasurementsIntervals [place] Rate: 63P: 34PR: 114 QRS: 62QRSD: 88 T: 35QT: 412 QTc: 419 Interpretive StatementsSINUS RHYTHM WITH SHORT ND INTERVALOtherwise Normal ECGElectronically Signed On 05-07-2022 13:07:54 CDT by Geraldo PEREZ [place] [id number] 10:10:5012 LEAD EKG FOR [facility] Test Date: 8903-00-22Uzg Name: GARY WELLS Department: OCOPatient ID: [id number] Room: Gender: F Load Planner: : 1960 Requested By: MILDRED PURI AOrder Number: [id number] Reading MD: Geraldo STOUT MeasurementsIntervals [place] Rate: 63P: 34PR: 114 QRS: 62QRSD: 88 T: 35QT: 412 QTc: 419 Interpretive StatementsSINUS RHYTHM WITH SHORT ND INTERVALOtherwise Normal ECGElectronically Signed On 05-07-2022 13:07:54 CDT by Geraldo PEREZ [place] [id number] 10:10:5012 LEAD EKG FOR P [facility] Test Date: 3103-14-38Wor Name: GARY WELLS Department: OCOPatient ID: [id number] Room: Gender: F Load Planner: : 1960 Requested By: MILDRED PURI AOrder Number: [id number] Reading MD: Geraldo STOUT MeasurementsIntervals [place] Rate: 63 P: 34PR: 114 QRS: 62QRSD: 88 T: 35QT: 412 QTc: 419 Interpretive StatementsSINUS RHYTHM WITH SHORT ND INTERVALOtherwise Normal ECGElectronically Signed On 05-07-2022 13:07:54 CDT by Geraldo PEREZ [place] [id number] 10:10:5012 LEAD EKG FOR P [facility] Test Date: 5323-29-34Eiw Name: GARY WELLS Department: OCOPatient ID: [id number] Room: Gender: F Load Planner: : 1960 Requested By: MILDRED PURI AOrder Number: [id number] Reading MD: Geraldo STOUT MeasurementsIntervals [place] Rate: 63P: 34PR: 114 QRS: 62QRSD: 88 T: 35QT: 412 QTc: 419 Interpretive StatementsSINUS RHYTHM WITH SHORT ND INTERVALOtherwise Normal ECGElectronically Signed On 05-07-2022 13:07:54 CDT [facility] ORF1ab Resp Ql MATIAS+uhzmd5612-44-29 18:51:45 Test Item Value Reference Range Interpretation Comments Symptomatic as No defined by CDC? (test code = 04047-5) Hospitalized? (test No code = 71616-7) ICU? (test code = No 56219-9) Employed in No Healthcare? (test code = 85828-6) Resident in a No congregate care setting (including nursing homes, residential care for people with intellectual and developmental disabilities, psychiatric treatment facilities, group homes, board and care homes, homeless mcc, foster care or other): (test code = 31290-2) ? (test code No = 32284-6) SARS-CoV-2 ORF1ab NOT DETECTED Not Detected INTERPRETA TION: No Resp Ql MATIAS+probe detectable levels of (test code = SARS-CoV-2 37709-3) Coronavirus (COVID-19) were present in this patient's sampl e by this test. A no t detected result does not exclude the possibility of active infection with this virus due to ot her factors that ma y affect the resu lts such as a poorl y collected sampl e, viral titers be low the limit of detection of th e assay, and the infrequent possibility of inhibitors in t he sample. This re sult should be inter preted in conjunction with clinical, radiographic, a nd other laborator y findings and sh ould not be used as the sole indicator of active infectio n with SARS-CoV-2 Coronavirus (COVID-19).COMM ENT: This Hologic Ap cleopatra SARS-CoV-2 mole cular diagnostic assa y utilizes High [employer] Mathematics Teacher Mediated Amplification ( TMA) technology to r apidly detect the SARS -CoV-2 (COVID-19) viru s from respiratory gonzalo ples. In accordance with\\XC2A0\\the FDA's guidance docume nt "Policy for Diagnostic Test s for Coronavirus Disease-2019 du ring the Public Heal Emergency", judy s test was developed, and its performance characteristics were verified by the [facility] molecular diagn ostics laboratory and is authorized for clinical diagno stic use. \\XC2A0\\Thi s laboratory is certified under the Clinical Labora tory Improvement Amendments (CLI A) as qualified to pe rform high complexity clinical labora tory testing. [facility] rhcbyye7381-24-04 18:16:00 Test Item Value Reference Range Interpretation Comments POC glucose (test code 103 mg/dL 65-99 H Opera tor Name: [place] = 98259-6) CarisaDevice ID : [id number] able: RN Notified Lab Interpretation Abnormal (test code = 51103-9) [facility]2022-08-25 18:16:00 Test Item Value Reference Range Interpretation Comments POC glucose (test code 103 mg/dL 65-99 H Opera tor Name: [place] = 89369-0) CarisaDevice ID : [id number] able: RN Notified Lab Interpretation Abnormal (test code = 66125-5) [facility]2022-08-25 18:16:00 Test Item Value Reference Range Interpretation Comments POC glucose (test code 103 mg/dL 65-99 H Opera tor Name: [place] = 61635-9) CarisaDevice ID : [id number] able: RN Notified Lab Interpretation Abnormal (test code = 84431-2) [facility]2022-08-25 18:16:00 Test Item Value Reference Range Interpretation Comments POC glucose (test code 103 mg/dL 65-99 H Opera tor Name: [place] = 91767-4) CarisaDevice ID : [id number] able: RN Notified Lab Interpretation Abnormal (test code = 52068-8) [facility]2022-08-25 18:16:00 Test Item Value Reference Range Interpretation Comments POC glucose (test code 103 mg/dL 65-99 H Opera tor Name: [place] = 79105-8) CarisaDevice ID : [id number] able: RN Notified Lab Interpretation Abnormal (test code = 69432-7) [facility]2022-08-25 18:16:00 Test Item Value Reference Range Interpretation Comments POC glucose (test code 103 mg/dL 65-99 H Opera tor Name: [place] = 98198-6) [employer]isaDevice ID : [id number] able: RN Notified Lab Interpretation Abnormal (test code = 18766-9) [facility]2022-08-25 18:16:00 Test Item Value Reference Range Interpretation Comments POC glucose (test code 103 mg/dL 65-99 H Opera tor Name: [place] = 94576-7) [employer]isa[employer] ID : [id number] able: RN Notified Lab Interpretation Abnormal (test code = 86422-7) [facility]2022-08-25 18:16:00 Test Item Value Reference Range Interpretation Comments POC glucose (test code 103 mg/dL 65-99 H Opera tor Name: [place] = 54690-4) [employer]isaDevice ID : [id number] able: RN Notified Lab Interpretation Abnormal (test code = 17498-9) [facility]2022-08-25 18:16:00 Test Item Value Reference Range Interpretation Comments POC glucose (test code 103 mg/dL 65-99 H Opera tor Name: [place] = 83793-9) [employer]isaDevice ID : [id number] able: RN Notified Lab Interpretation Abnormal (test code = 11357-6) [facility]2022-08-25 18:16:00 Test Item Value Reference Range Interpretation Comments POC glucose (test code 103 mg/dL 65-99 H Opera tor Name: [place] = 26760-6) [employer] ID : [id number] able: RN Notified Lab Interpretation Abnormal (test code = 14397-8) [facility]2022-08-25 18:16:00 Test Item Value Reference Range Interpretation Comments POC glucose (test code 103 mg/dL 65-99 H Opera tor Name: [place] = 44574-0) [employer]isaDevice ID : [id number] able: RN Notified Lab Interpretation Abnormal (test code = 43223-0) [facility]2022-08-25 18:16:00 Test Item Value Reference Range Interpretation Comments POC glucose (test code 103 mg/dL 65-99 H Opera tor Name: [place] = 49728-1) [employer]isaDevice ID : [id number] able: RN Notified Lab Interpretation Abnormal (test code = 37884-9) [facility]2022-08-25 18:16:00 Test Item Value Reference Range Interpretation Comments POC glucose (test code 103 mg/dL 65-99 H Opera tor Name: [place] = 34570-1) [employer]isaDevice ID : [id number] able: RN Notified Lab Interpretation Abnormal (test code = 47279-2) [facility]2022-08-25 18:16:00 Test Item Value Reference Range Interpretation Comments POC glucose (test code 103 mg/dL 65-99 H Opera tor Name: [place] = 43989-2) [employer]isaDevice ID : [id number] able: RN Notified Lab Interpretation Abnormal (test code = 11170-0) [facility]2022-08-25 18:16:00 Test Item Value Reference Range Interpretation Comments POC glucose (test code 103 mg/dL 65-99 H Opera tor Name: [place] = 25961-9) CarisaDevice ID : [id number] able: RN Notified Lab Interpretation Abnormal (test code = 18850-4) [facility]2022-08-25 18:16:00 Test Item Value Reference Range Interpretation Comments POC glucose (test code 103 mg/dL 65-99 H Opera tor Name: [place] = 48982-4) [employer]isaDevice ID : [id number] able: RN Notified Lab Interpretation Abnormal (test code = 28687-2) [facility]2022-08-25 18:16:00 Test Item Value Reference Range Interpretation Comments POC glucose (test code 103 mg/dL 65-99 H Opera tor Name: [place] = 87403-5) [employer]isaDevice ID : [id number] able: RN Notified Lab Interpretation Abnormal (test code = 42177-4) [facility]2022-08-25 18:16:00 Test Item Value Reference Range Interpretation Comments POC glucose (test code 103 mg/dL 65-99 H Opera tor Name: [place] = 28371-6) CarisaDevice ID : [id number] able: RN Notified Lab Interpretation Abnormal (test code = 37839-6) [facility]2022-08-25 18:16:00 Test Item Value Reference Range Interpretation Comments POC glucose (test code 103 mg/dL 65-99 H Opera tor Name: [place] = 85065-9) CarisaDevice ID : [id number] able: RN Notified Lab Interpretation Abnormal (test code = 81118-4) [facility]2022-08-25 18:16:00 Test Item Value Reference Range Interpretation Comments POC glucose (test code 103 mg/dL 65-99 H Opera tor Name: [place] = 80092-5) CarisaDevice ID : [id number] able: RN Notified Lab Interpretation Abnormal (test code = 35145-9) [facility]2022-08-25 18:16:00 Test Item Value Reference Range Interpretation Comments POC glucose (test code 103 mg/dL 65-99 H Opera tor Name: [place] = 76690-3) CarisaDevice ID : [id number] able: RN Notified Lab Interpretation Abnormal (test code = 22820-9) [facility]2022-08-25 18:16:00 Test Item Value Reference Range Interpretation Comments POC glucose (test code 103 mg/dL 65-99 H Opera tor Name: [place] = 96243-1) CarisaDevice ID : [id number] able: RN Notified Lab Interpretation Abnormal (test code = 03563-6) [facility]2022-08-25 18:16:00 Test Item Value Reference Range Interpretation Comments POC glucose (test code 103 mg/dL 65-99 H Opera tor Name: [place] = 98367-3) CarisaDevice ID : [id number] able: RN Notified Lab Interpretation Abnormal (test code = 58078-3) [facility]2022-08-25 18:16:00 Test Item Value Reference Range Interpretation Comments POC glucose (test code 103 mg/dL 65-99 H Opera tor Name: [place] = 30909-3) CarisaDevice ID : [id number] able: RN Notified Lab Interpretation Abnormal (test code = 15562-6) [facility]2022-08-25 18:16:00 Test Item Value Reference Range Interpretation Comments POC glucose (test code 103 mg/dL 65-99 H Opera tor Name: [place] = 69979-7) CarisaDevice ID : [id number] able: RN Notified Lab Interpretation Abnormal (test code = 52010-4) [facility]2022-08-25 18:16:00 Test Item Value Reference Range Interpretation Comments POC glucose (test code 103 mg/dL 65-99 H Opera tor Name: [place] = 08793-8) CarisaDevice ID : [id number] able: RN Notified Lab Interpretation Abnormal (test code = 87789-1) [facility]2022-08-25 18:16:00 Test Item Value Reference Range Interpretation Comments POC glucose (test code 103 mg/dL 65-99 H Opera tor Name: [place] = 51777-8) CarisaDevice ID : [id number] able: RN Notified Lab Interpretation Abnormal (test code = 25907-2) [facility]2022-08-25 18:16:00 Test Item Value Reference Range Interpretation Comments POC glucose (test code 103 mg/dL 65-99 H Opera tor Name: [place] = 99133-7) CarisaDevice ID : [id number] able: RN Notified Lab Interpretation Abnormal (test code = 21105-1) [facility]2022-08-25 18:16:00 Test Item Value Reference Range Interpretation Comments POC glucose (test code 103 mg/dL 65-99 H Opera tor Name: [place] = 94847-1) CarisaDevice ID : [id number] able: RN Notified Lab Interpretation Abnormal (test code = 73847-2) [facility]2022-08-25 18:16:00 Test Item Value Reference Range Interpretation Comments POC glucose (test code 103 mg/dL 65-99 H Opera tor Name: [place] = 20892-2) CarisaDevice ID : [id number] able: RN Notified Lab Interpretation Abnormal (test code = 29270-1) [facility]2022-08-25 18:16:00 Test Item Value Reference Range Interpretation Comments POC glucose (test code 103 mg/dL 65-99 H Opera tor Name: [place] = 20841-1) CarisaDevice ID : [id number] able: RN Notified Lab Interpretation Abnormal (test code = 48297-5) [facility]2022-08-25 18:16:00 Test Item Value Reference Range Interpretation Comments POC glucose (test code 103 mg/dL 65-99 H Opera tor Name: [place] = 01450-1) CarisaDevice ID : [id number] able: RN Notified Lab Interpretation Abnormal (test code = 87231-8) [facility]2022-08-25 18:16:00 Test Item Value Reference Range Interpretation Comments POC glucose (test code 103 mg/dL 65-99 H Opera tor Name: [place] = 11705-0) CarisaDevice ID : [id number] able: RN Notified Lab Interpretation Abnormal (test code = 44403-9) [facility]2022-08-25 18:16:00 Test Item Value Reference Range Interpretation Comments POC glucose (test code 103 mg/dL 65-99 H Opera tor Name: [place] = 95828-0) CarisaDevice ID : [id number] able: RN Notified Lab Interpretation Abnormal (test code = 49142-2) [facility] MATIAS+rgkai3813-56-69 13:15:11 Test Item Value Reference Range Interpretation Comments Hospitalized? (test No code = 65853-6) ICU? (test code = No 49892-3) Symptomatic as defined No by CDC? (test code = 68468-7) Employed in No Healthcare? (test code = 24832-9) Resident in a No congregate care setting (including nursing homes, residential care for people with intellectual and developmental disabilities, psychiatric treatment facilities, group homes, board and care homes, homeless mcc, foster care or other): (test code = 24553-5) ? (test code = No 58009-4) SARS-CoV-2 RNA Resp Ql NOT DETECTED Not Detected INTER PRETATION: No MATIAS+probe (test code = detec table levels 30530-8) of SARS-CoV-2 Coronavirus (COVID-19) were present in this patient's sampl e by this test. A no t detected result does not exclud e the possibility of active infectio n with this virus due to other factor s that may affect the results such as a poorly collecte d sample, viral titers below th e limit of detect ion of the assay, a nd the infrequent possibility of inhibitors in t he sample. This re sult should be interpreted in conjunction wit h clinical, radiographic, a nd other laborator y findings and sh ould not be used as the sole indicator of active infectio n with SARS-CoV-2 Coronavirus (COVID-19). COMMENT: This [employer] Xpert Xpress SARS-CoV-2 real-time PCR test was developed, and its performance characteristics determined by the [facility] molecular diagnostic Laboratory and is acceptablefor patient testing. It has been approved for patient testing by the FDA under the Emergency Use Auth orization pathway. This laboratory is certified under federal CLIA regulations to perform this type of high complexity testing.[facility] PE [id number] 23:08:00[facility] : 1960 Sex: FEXAMINATION:CT PE PROTOCOLCLINICAL INDICATION:Female, 61 years old with Dyspnea; Chest painTECHNIQUE: Axial post-contrast contiguous images were obtained through the chest followed by coronal and sagittal multiplanar reformations.One or more of the following dose reduction techniques were used: Automated exposure control, adjustment of the mA and/or kV according to patient size, and/or iterative reconstruction. COMPARISON: CXR 03/20/2022 reported posttraumatic and postoperative changes.FINDINGS: The lungs appear clear of infiltrate, effusion, or soft tissue mass. Postoperative changes include breast implants, internal fixation of the left clavicle fracture, and ACDF of the lower neck. Heart size is within normallimits. The great vessels appear intact with no filling defect of the pulmonary circulation identified. No thyroid mass identified. No mediastinal, hilar, or axillary adenopathy identified. There is minimal vertebral spurring. Below the diaphragms the adrenal glands are not enlarged. 2 functional kidneys are present.IMPRESSION:1. No pulmonary embolus identified.2. Postoperative changes.3. No consolidation or effusion is seen in the lungs.Electronically signed by: Amandeep Bridges MD 03/20/2022 11:08 PM CDT [id number] 22:27:00 Test Item Value Reference Range Interpretation Comments MAGNESIUM (test code = 48A) 1.8 mg/dL 1.6-2.6 SARS-CoV (RAPID ANTIGEN)2022-03-20 22:26:00 Test Item Value Reference Range Interpretation Comments SARS-CoV (ANTIGEN) NEGATIVE NEGATIVE (test code = COVAG) COVID AG (test This test has been code = COVAGC) marketed under the FDA Emergency Use Authorization (EUA) to meet challenges of the COVID-19 pandemic. The validation standards normally enforced by the FDA and the [employer] the [employer] (CAP) are more stringent than those required for this test. Therefore, the result should be interpreted with caution and close attention to other clinical and epidemiological data ALCOHOL BLOOD (ETOH)2022-03-20 22:25:00 Test Item Value Reference Range Interpretation Comments ETOH (test code = ETHANOL HALC) The result is to be used only for medical purposes ALCOHOL (test <10 mg/dL See_Comment [Automated me ssage] code = 56A) The system [employer] generated this result transmit mau reference range : <=10. The refer ence range was not u sed to interpret th is result as normal/abnormal . AMYLASE AND [id number] 22:25:00 Test Item Value Reference Range Interpretation Comments AMYLASE (test code = 10A) 46 U/L 30-118 LIPASE (test code = 60A) 24 IU/L 12-53 COMPREHENSIVE METABOLIC [id number] 22:25:00 Test Item Value Reference Range Interpretation Comments GLUCOSE (test code 92 mg/dL 75-100 = 06D) SODIUM (test code 139 mmol/L 136-145 = 01A) POTASSIUM (test 4.0 mmol/L 3.6-5.1 code = 01B) CHLORIDE (test 108 mmol/L 98-107 H code = 04A) CO2 (test code = 26 mmol/L 20-31 02A) ANION GAP (test 9.0 mmol/L code = ANG) BUN (test code = 11 mg/dL 9-23 05D) CREATININE (test 0.7 mg/dL 0.6-1.0 code = 03E) GFR (test code = 95 See_Comment [Automated GFR) mL/min/1.73m\\S\\2 message] Th e system which generated this result transmit mau reference range : >=90. The reference range was not used to interpret this result as normal/abnormal . GFR 110 See_Comment [Automated QATARI (test mL/min/1.73m\\S\\2 message] The code = GFRAA) system which generated this result transmit mau reference range : >=90. The reference range was not used to interpret this result as normal/abnormal . EGFR (test code = eGFR BY EGFR) CKD-EPI CALCULATION IS NOT RECOMMENDED FOR PATIENTS UNDER 18 YEARS OF AGE. BUN/CREA (test 16 12-20 code = BCR) CALCIUM (test code 8.6 mg/dL 8.3-10.6 = 09D) BILI TOTAL (test 0.4 mg/dL 0.2-1.0 code = 11A) PROTEIN (test code 5.6 g/dL 5.7-8.2 L = 07D) ALBUMIN (test code 4.0 g/dL 3.2-4.8 = 08D) GLOBULIN (test 1.6 g/dL 1.5-3.8 code = GLB) ALB/GLOB (test 2.5 1.0-2.6 code = AGRR) ALK PHOS (test 127 IU/L 46-116 H code = 35A) AST (test code = 50 IU/L See_Comment H [Automated 30A) message] The system which generated this result transmit mau reference range : <=33. The reference range was not used to interpret this result as normal/abnormal . ALT (test code = 55 IU/L 10-49 H 31A) TROPONIN [id number] 22:20:00 Test Item Value Reference Range Interpretation Comments TROPONIN I (test code = A84) <2.50 pg/mL 0.00-45.20 PRO TIME AND [id number] 22:18:00 Test Item Value Reference Range Interpretation Comments PT (test code = 10.3 s 9.8-13.6 TT) INR (test code = 0.9 INR) INRH (test code = SUGGESTED THERAPEUTIC INRH) RANGE FOR INR: 2.5 - 3.5 For Patients with Prosthetic Valves or Patients with recurrent Thromboembolic Events 2.0 - 3.0 For Most Other Applications PTT (test code = 36.4 s 20.2-38.0 PTT) PTTH (test code = To monitor the PTTH) effectiveness of heparin, we offer the Anti-Xa (Heparin Assay). It can be used for either unfractionated or LMW Heparin. Order Code is ANTI-XA CBC (INCLUDES AUTOMATED DIFFERENTIAL)2022-03-20 22:13:00 Test Item Value Reference Range Interpretation Comments WBC (test code = WBC) 3.4 10\\S\\3/uL 4.5-11.0 L RBC (test code = RBC) 3.15 10\\S\\6/uL 4.20-5.60 L HGB (test code = HBG) 10.8 g/dL 12.0-15.5 L HCT (test code = HCT) 32.0 % 35.0-44.0 L MCV (test code = MCV) 101.6 fL 81.0-99.0 H MCH (test code = MCH) 34.3 pg 27.0-31.0 H MCHC (test code = MCHC) 33.8 g/dL 32.0-36.0 RDW (test code = RDW) 14.2 % 11.5-14.5 PLT (test code = PLT) 154 10\\S\\3/uL 130-400 MPV (test code = MPV) 10.0 fL 9.4-12.4 NEUTROP # (test code = NE#) 1.7 10\\S\\3/uL 1.6-8.0 LYMPH # (test code = LY#) 1.2 10\\S\\3/uL 1.1-3.5 MONOCYTE # (test code = MO#) 0.4 10\\S\\3/uL 0.0-1.1 EOSINOPH # (test code = EO#) 0.1 10\\S\\3/uL 0.0-0.7 BASOPHIL # (test code = BA#) 0.0 10\\S\\3/uL 0.0-0.3 IG # (test code = IG#) 0.00 10\\S\\3/uL 0.00-0.06 NRBC # (test code = NRBC#) 0.00 10\\S\\3/uL 0.00-0.01 NEUTROPH % (test code = NE%) 50.5 % 35.0-73.0 LYMPH % (test code = LY%) 35.6 % 20.0-55.0 MONO % (test code = MO%) 11.2 % 2.5-10.0 H EOSINOPH % (test code = EO%) 2.1 % 0.0-5.0 BASOPHIL % (test code = BA%) 0.6 % 0.0-2.0 IG % (test code = IG%) 0.0 % 0.0-0.8 NRBC% (test code = NRBC%) 0.0 % 0.0-0.2 MANDIFF (test code = MDIFF) NO XR CHEST 1 VIEW [id number] 22:06:00 [facility] : 1960 Sex: FEXAMINATION:XR CHEST 1 VIEW PORTABLECLINICAL INDICATION:Female, 61 years year old with Chest pain; DyspneaCOMPARISON: No prior available for review.FINDINGS: Single frontal view taken 9:50 PM shows postoperative change in the neck and left clavicle. Heart size and pulmonary vessels are normal. Lungs are fully expanded and clear. No acute bone change identified. Old healed rib fractures seen on the right.IMPRESSION:1. Posttraumatic and postoperative change.2. Otherwise no acute finding.Electronically signed by: Amandeep Bridges MD 03/20/2022 10:06 PM CDT [id number] AND [id number] 01:13:00 Test Item Value Reference Range Interpretation Comments UA Color (test code = Yellow *NA*(03/16/22 UA Color) 8:13 PM) [facility] AND [id number] 01:13:00 Test Item Value Reference Range Interpretation Comments UA Turbidity (test code Slight Cloudy = UA Turbidity) (03/16/22 8:13 PM) [facility] AND [id number] 01:13:00 Test Item Value Reference Range Interpretation Comments UA Spec Grav (test code = UA Spec 1.020 1 Grav) [facility] AND [id number] 01:13:00 Test Item Value Reference Range Interpretation Comments UA pH (test code = UA pH) 6.0 1 5.0-8.0 [facility] AND [id number] 01:13:00 Test Item Value Reference Range Interpretation Comments UA Protein (test code Negative (03/16/22 8:13 = UA Protein) PM) [facility] AND [id number] 01:13:00 Test Item Value Reference Range Interpretation Comments UA Glucose (test code Negative (03/16/22 8:13 = UA Glucose) PM) [facility] AND [id number] 01:13:00 Test Item Value Reference Range Interpretation Comments UA Ketones (test code Negative *NA*(03/16/22 = UA Ketones) 8:13 PM) [facility] AND [id number] 01:13:00 Test Item Value Reference Range Interpretation Comments UA Bili (test code = Negative *NA*(03/16/22 UA Bili) 8:13 PM) [facility] AND [id number] 01:13:00 Test Item Value Reference Range Interpretation Comments UA Blood (test code = Negative (03/16/22 8:13 UA Blood) PM) [facility] AND [id number] 01:13:00 Test Item Value Reference Range Interpretation Comments UA Urobilinogen (test code = UA 0.2 0.1-1.0 Urobilinogen) [facility] AND [id number] 01:13:00 Test Item Value Reference Range Interpretation Comments UA Nitrite (test code Positive *ABN*(03/16/22 = UA Nitrite) 8:13 PM) [facility] [id number] 01:13:00 Test Item Value Reference Range Interpretation Comments UA Leuk Est (test Moderate *ABN*(03/16/22 code = UA Leuk Est) 8:13 PM) [facility] [id number] 01:13:00 Test Item Value Reference Range Interpretation Comments UA Sq Epi (test code = UA Sq Epi) Few /LPF [facility] [id number] 01:13:00 Test Item Value Reference Range Interpretation Comments UA WBC (test code = 98 See_Comment [Automa mau message] The UA WBC) system which ge nerated this result transmit mau reference range : <=5. The reference range was not used to interpr et this result as elaine l/abnormal. [facility] AND [id number] 01:13:00 Test Item Value Reference Range Interpretation Comments UA RBC (test code = 2 See_Comment [Automa mau message] The UA RBC) system which ge nerated this result transmit mau reference range : <=2. The reference range was not used to interpr et this result as elaine l/abnormal. [facility] AND [id number] 01:13:00 Test Item Value Reference Range Interpretation Comments UA Bacteria (test code = UA Moderate /HPF Bacteria) [facility] AND [id number] 01:13:00 Test Item Value Reference Range Interpretation Comments UA Mucus (test code = UA Mucus) Few /[facility]F [facility]: [id number] 01:13:00 Test Item Value Reference Range Interpretation Comments Culture: Urine (test >100,000 CFU/mL code = Culture: Escherichia coli Urine) Sensitivity Pending [facility] AND [id number] 01:13:00 Test Item Value Reference Range Interpretation Comments UA Color (test code = Yellow *NA*(03/16/22 UA Color) 8:13 PM) [facility] AND [id number] 01:13:00 Test Item Value Reference Range Interpretation Comments UA Turbidity (test code Slight Cloudy = UA Turbidity) (03/16/22 8:13 PM) [facility] AND [id number] 01:13:00 Test Item Value Reference Range Interpretation Comments UA Spec Grav (test code = UA Spec 1.020 1 Grav) [facility] AND [id number] 01:13:00 Test Item Value Reference Range Interpretation Comments UA pH (test code = UA pH) 6.0 1 5.0-8.0 [facility] AND [id number] 01:13:00 Test Item Value Reference Range Interpretation Comments UA Protein (test code Negative (03/16/22 8:13 = UA Protein) PM) [facility] AND [id number] 01:13:00 Test Item Value Reference Range Interpretation Comments UA Glucose (test code Negative (03/16/22 8:13 = UA Glucose) PM) [facility] AND [id number] 01:13:00 Test Item Value Reference Range Interpretation Comments UA Ketones (test code Negative *NA*(03/16/22 = UA Ketones) 8:13 PM) [facility] AND [id number] 01:13:00 Test Item Value Reference Range Interpretation Comments UA Bili (test code = Negative *NA*(03/16/22 UA Bili) 8:13 PM) [facility] AND [id number] 01:13:00 Test Item Value Reference Range Interpretation Comments UA Blood (test code = Negative (03/16/22 8:13 UA Blood) PM) [facility] AND [id number] 01:13:00 Test Item Value Reference Range Interpretation Comments UA Urobilinogen (test code = UA 0.2 0.1-1.0 Urobilinogen) [facility] AND [id number] 01:13:00 Test Item Value Reference Range Interpretation Comments UA Nitrite (test code Positive *ABN*(03/16/22 = UA Nitrite) 8:13 PM) [facility] AND [id number] 01:13:00 Test Item Value Reference Range Interpretation Comments UA Leuk Est (test Moderate *ABN*(03/16/22 code = UA Leuk Est) 8:13 PM) [facility] AND [id number] 01:13:00 Test Item Value Reference Range Interpretation Comments UA Sq Epi (test code = UA Sq Epi) Few /LPF [facility] AND [id number] 01:13:00 Test Item Value Reference Range Interpretation Comments UA WBC (test code = 98 See_Comment [Automa mau message] The UA WBC) system which ge nerated this result transmit mau reference range : <=5. The reference range was not used to interpr et this result as elaine l/abnormal. [facility] AND [id number] 01:13:00 Test Item Value Reference Range Interpretation Comments UA RBC (test code = 2 See_Comment [Automa mau message] The UA RBC) system which ge nerated this result transmit mau reference range : <=2. The reference range was not used to interpr et this result as elaine l/abnormal. [facility] [id number] 01:13:00 Test Item Value Reference Range Interpretation Comments UA Bacteria (test code = UA Moderate /HPF Bacteria) [facility] AND [id number] 01:13:00 Test Item Value Reference Range Interpretation Comments UA Mucus (test code = UA Mucus) Few /LPF [facility] Center[facility] [id number] 01:13:00 Test Item Value Reference Range Interpretation Comments Culture: Urine (test >100,000 CFU/mL code = Culture: Escherichia coli Urine) Sensitivity Pending [facility] [id number] 01:13:00 Test Item Value Reference Range Interpretation Comments UA Color (test code = Yellow *NA*(03/16/22 UA Color) 8:13 PM) [facility] AND [id number] 01:13:00 Test Item Value Reference Range Interpretation Comments UA Turbidity (test code Slight Cloudy = UA Turbidity) (03/16/22 8:13 PM) [facility] AND [id number] 01:13:00 Test Item Value Reference Range Interpretation Comments UA Spec Grav (test code = UA Spec 1.020 1 Grav) [facility] AND [id number] 01:13:00 Test Item Value Reference Range Interpretation Comments UA pH (test code = UA pH) 6.0 1 5.0-8.0 [facility] AND [id number] 01:13:00 Test Item Value Reference Range Interpretation Comments UA Protein (test code Negative (03/16/22 8:13 = UA Protein) PM) [facility] AND [id number] 01:13:00 Test Item Value Reference Range Interpretation Comments UA Glucose (test code Negative (03/16/22 8:13 = UA Glucose) PM) [facility] AND [id number] 01:13:00 Test Item Value Reference Range Interpretation Comments UA Ketones (test code Negative *NA*(03/16/22 = UA Ketones) 8:13 PM) [facility] AND [id number] 01:13:00 Test Item Value Reference Range Interpretation Comments UA Bili (test code = Negative *NA*(03/16/22 UA Bili) 8:13 PM) [facility] AND [id number] 01:13:00 Test Item Value Reference Range Interpretation Comments UA Blood (test code = Negative (03/16/22 8:13 UA Blood) PM) [facility] AND [id number] 01:13:00 Test Item Value Reference Range Interpretation Comments UA Urobilinogen (test code = UA 0.2 0.1-1.0 Urobilinogen) [facility] AND [id number] 01:13:00 Test Item Value Reference Range Interpretation Comments UA Nitrite (test code Positive *ABN*(03/16/22 = UA Nitrite) 8:13 PM) [facility] AND [id number] 01:13:00 Test Item Value Reference Range Interpretation Comments UA Leuk Est (test Moderate *ABN*(03/16/22 code = UA Leuk Est) 8:13 PM) [facility] AND [id number] 01:13:00 Test Item Value Reference Range Interpretation Comments UA Sq Epi (test code = UA Sq Epi) Few /LPF [facility] AND [id number] 01:13:00 Test Item Value Reference Range Interpretation Comments UA WBC (test code = 98 See_Comment [Automa mau message] The UA WBC) system which ge nerated this result transmit mau reference range : <=5. The reference range was not used to interpr et this result as elaine l/abnormal. [facility] AND [id number] 01:13:00 Test Item Value Reference Range Interpretation Comments UA RBC (test code = 2 See_Comment [Automa mau message] The UA RBC) system which ge nerated this result transmit mau reference range : <=2. The reference range was not used to interpr et this result as elaine l/abnormal. [facility] AND [id number] 01:13:00 Test Item Value Reference Range Interpretation Comments UA Bacteria (test code = UA Moderate /HPF Bacteria) [facility] AND [id number] 01:13:00 Test Item Value Reference Range Interpretation Comments UA Mucus (test code = UA Mucus) Few /LPF [facility] CenterCulture: [id number] 01:13:00 Test Item Value Reference Range Interpretation Comments Culture: Urine (test >100,000 CFU/mL code = Culture: Escherichia coli Urine) Sensitivity Pending [facility] AND [id number] 01:13:00 Test Item Value Reference Range Interpretation Comments UA Color (test code = Yellow *NA*(03/16/22 UA Color) 8:13 PM) [facility] AND [id number] 01:13:00 Test Item Value Reference Range Interpretation Comments UA Turbidity (test code Slight Cloudy = UA Turbidity) (03/16/22 8:13 PM) [facility] AND [id number] 01:13:00 Test Item Value Reference Range Interpretation Comments UA Spec Grav (test code = UA Spec 1.020 1 Grav) [facility] AND [id number] 01:13:00 Test Item Value Reference Range Interpretation Comments UA pH (test code = UA pH) 6.0 1 5.0-8.0 [facility] AND [id number] 01:13:00 Test Item Value Reference Range Interpretation Comments UA Protein (test code Negative (03/16/22 8:13 = UA Protein) PM) [facility] AND [id number] 01:13:00 Test Item Value Reference Range Interpretation Comments UA Glucose (test code Negative (03/16/22 8:13 = UA Glucose) PM) [facility] AND [id number] 01:13:00 Test Item Value Reference Range Interpretation Comments UA Ketones (test code Negative *NA*(03/16/22 = UA Ketones) 8:13 PM) [facility] AND [id number] 01:13:00 Test Item Value Reference Range Interpretation Comments UA Bili (test code = Negative *NA*(03/16/22 UA Bili) 8:13 PM) [facility] [id number] 01:13:00 Test Item Value Reference Range Interpretation Comments UA Blood (test code = Negative (03/16/22 8:13 UA Blood) PM) [facility] [id number] 01:13:00 Test Item Value Reference Range Interpretation Comments UA Urobilinogen (test code = UA 0.2 0.1-1.0 Urobilinogen) [facility] [id number] 01:13:00 Test Item Value Reference Range Interpretation Comments UA Nitrite (test code Positive *ABN*(03/16/22 = UA Nitrite) 8:13 PM) [facility] [id number] 01:13:00 Test Item Value Reference Range Interpretation Comments UA Leuk Est (test Moderate *ABN*(03/16/22 code = UA Leuk Est) 8:13 PM) [facility] [id number] 01:13:00 Test Item Value Reference Range Interpretation Comments UA Sq Epi (test code = UA Sq Epi) Few /LPF [facility] [id number] 01:13:00 Test Item Value Reference Range Interpretation Comments UA WBC (test code = 98 See_Comment [Automa mau message] The UA WBC) system which ge nerated this result transmit mau reference range : <=5. The reference range was not used to interpr et this result as elaine l/abnormal. [facility] [id number] 01:13:00 Test Item Value Reference Range Interpretation Comments UA RBC (test code = 2 See_Comment [Automa mau message] The UA RBC) system which ge nerated this result transmit mau reference range : <=2. The reference range was not used to interpr et this result as elaine l/abnormal. [facility] [id number] 01:13:00 Test Item Value Reference Range Interpretation Comments UA Bacteria (test code = UA Moderate /HPF Bacteria) [facility] [id number] 01:13:00 Test Item Value Reference Range Interpretation Comments UA Mucus (test code = UA Mucus) Few /LPF [facility]ann[facility]: [id number] 01:13:00 Test Item Value Reference Range Interpretation Comments Culture: Urine (test >100,000 CFU/mL code = Culture: Escherichia coli Urine) Sensitivity Pending [facility] [id number] 01:13:00 Test Item Value Reference Range Interpretation Comments UA Color (test code = Yellow *NA*(03/16/22 UA Color) 8:13 PM) [facility] AND [id number] 01:13:00 Test Item Value Reference Range Interpretation Comments UA Turbidity (test code Slight Cloudy = UA Turbidity) (03/16/22 8:13 PM) [facility] [id number] 01:13:00 Test Item Value Reference Range Interpretation Comments UA Spec Grav (test code = UA Spec 1.020 1 Grav) [facility] AND [id number] 01:13:00 Test Item Value Reference Range Interpretation Comments UA pH (test code = UA pH) 6.0 1 5.0-8.0 [facility] AND [id number] 01:13:00 Test Item Value Reference Range Interpretation Comments UA Protein (test code Negative (03/16/22 8:13 = UA Protein) PM) [facility] AND [id number] 01:13:00 Test Item Value Reference Range Interpretation Comments UA Glucose (test code Negative (03/16/22 8:13 = UA Glucose) PM) [facility] AND [id number] 01:13:00 Test Item Value Reference Range Interpretation Comments UA Ketones (test code Negative *NA*(03/16/22 = UA Ketones) 8:13 PM) [facility] AND [id number] 01:13:00 Test Item Value Reference Range Interpretation Comments UA Bili (test code = Negative *NA*(03/16/22 UA Bili) 8:13 PM) [facility] AND [id number] 01:13:00 Test Item Value Reference Range Interpretation Comments UA Blood (test code = Negative (03/16/22 8:13 UA Blood) PM) [facility] AND [id number] 01:13:00 Test Item Value Reference Range Interpretation Comments UA Urobilinogen (test code = UA 0.2 0.1-1.0 Urobilinogen) [facility] AND [id number] 01:13:00 Test Item Value Reference Range Interpretation Comments UA Nitrite (test code Positive *ABN*(03/16/22 = UA Nitrite) 8:13 PM) [facility] [id number] 01:13:00 Test Item Value Reference Range Interpretation Comments UA Leuk Est (test Moderate *ABN*(03/16/22 code = UA Leuk Est) 8:13 PM) [facility] [id number] 01:13:00 Test Item Value Reference Range Interpretation Comments UA Sq Epi (test code = UA Sq Epi) Few /LPF [facility] AND [id number] 01:13:00 Test Item Value Reference Range Interpretation Comments UA WBC (test code = 98 See_Comment [Automa mau message] The UA WBC) system which ge nerated this result transmit mau reference range : <=5. The reference range was not used to interpr et this result as elaine l/abnormal. [facility] AND [id number] 01:13:00 Test Item Value Reference Range Interpretation Comments UA RBC (test code = 2 See_Comment [Automa mau message] The UA RBC) system which ge nerated this result transmit mau reference range : <=2. The reference range was not used to interpr et this result as elaine l/abnormal. [facility] AND [id number] 01:13:00 Test Item Value Reference Range Interpretation Comments UA Bacteria (test code = UA Moderate /HPF Bacteria) [facility] AND [id number] 01:13:00 Test Item Value Reference Range Interpretation Comments UA Mucus (test code = UA Mucus) Few /LPF [facility]annCulture: [id number] 01:13:00 Test Item Value Reference Range Interpretation Comments Culture: Urine (test >100,000 CFU/mL code = Culture: Escherichia coli Urine) Sensitivity Pending [facility] AND [id number] 01:13:00 Test Item Value Reference Range Interpretation Comments UA Color (test code = Yellow *NA*(03/16/22 UA Color) 8:13 PM) [facility] [id number] 01:13:00 Test Item Value Reference Range Interpretation Comments UA Turbidity (test code Slight Cloudy = UA Turbidity) (03/16/22 8:13 PM) [facility] AND [id number] 01:13:00 Test Item Value Reference Range Interpretation Comments UA Spec Grav (test code = UA Spec 1.020 1 Grav) [facility] AND [id number] 01:13:00 Test Item Value Reference Range Interpretation Comments UA pH (test code = UA pH) 6.0 1 5.0-8.0 [facility] AND [id number] 01:13:00 Test Item Value Reference Range Interpretation Comments UA Protein (test code Negative (03/16/22 8:13 = UA Protein) PM) [facility] AND [id number] 01:13:00 Test Item Value Reference Range Interpretation Comments UA Glucose (test code Negative (03/16/22 8:13 = UA Glucose) PM) [facility] AND [id number] 01:13:00 Test Item Value Reference Range Interpretation Comments UA Ketones (test code Negative *NA*(03/16/22 = UA Ketones) 8:13 PM) [facility] AND [id number] 01:13:00 Test Item Value Reference Range Interpretation Comments UA Bili (test code = Negative *NA*(03/16/22 UA Bili) 8:13 PM) [facility] AND [id number] 01:13:00 Test Item Value Reference Range Interpretation Comments UA Blood (test code = Negative (03/16/22 8:13 UA Blood) PM) [facility] AND [id number] 01:13:00 Test Item Value Reference Range Interpretation Comments UA Urobilinogen (test code = UA 0.2 0.1-1.0 Urobilinogen) [facility] AND [id number] 01:13:00 Test Item Value Reference Range Interpretation Comments UA Nitrite (test code Positive *ABN*(03/16/22 = UA Nitrite) 8:13 PM) [facility] AND [id number] 01:13:00 Test Item Value Reference Range Interpretation Comments UA Leuk Est (test Moderate *ABN*(03/16/22 code = UA Leuk Est) 8:13 PM) [facility] AND [id number] 01:13:00 Test Item Value Reference Range Interpretation Comments UA Sq Epi (test code = UA Sq Epi) Few /LPF [facility] [id number] 01:13:00 Test Item Value Reference Range Interpretation Comments UA WBC (test code = 98 See_Comment [Automa mau message] The UA WBC) system which ge nerated this result transmit mau reference range : <=5. The reference range was not used to interpr et this result as elaine l/abnormal. [facility] [id number] 01:13:00 Test Item Value Reference Range Interpretation Comments UA RBC (test code = 2 See_Comment [Automa mau message] The UA RBC) system which ge nerated this result transmit mau reference range : <=2. The reference range was not used to interpr et this result as elaine l/abnormal. [facility] [id number] 01:13:00 Test Item Value Reference Range Interpretation Comments UA Bacteria (test code = UA Moderate /HPF Bacteria) [facility] AND [id number] 01:13:00 Test Item Value Reference Range Interpretation Comments UA Mucus (test code = UA Mucus) Few /LPF [facility]: [id number] 01:13:00 Test Item Value Reference Range Interpretation Comments Culture: Urine (test >100,000 CFU/mL code = Culture: Escherichia coli Urine) Sensitivity Pending [facility] [id number] 01:13:00 Test Item Value Reference Range Interpretation Comments UA Color (test code = Yellow *NA*(03/16/22 UA Color) 8:13 PM) [facility] AND [id number] 01:13:00 Test Item Value Reference Range Interpretation Comments UA Turbidity (test code Slight Cloudy = UA Turbidity) (03/16/22 8:13 PM) [facility] [id number] 01:13:00 Test Item Value Reference Range Interpretation Comments UA Spec Grav (test code = UA Spec 1.020 1 Grav) [facility] [id number] 01:13:00 Test Item Value Reference Range Interpretation Comments UA pH (test code = UA pH) 6.0 1 5.0-8.0 [facility] [id number] 01:13:00 Test Item Value Reference Range Interpretation Comments UA Protein (test code Negative (03/16/22 8:13 = UA Protein) PM) [facility] AND [id number] 01:13:00 Test Item Value Reference Range Interpretation Comments UA Glucose (test code Negative (03/16/22 8:13 = UA Glucose) PM) [facility] AND [id number] 01:13:00 Test Item Value Reference Range Interpretation Comments UA Ketones (test code Negative *NA*(03/16/22 = UA Ketones) 8:13 PM) [facility] AND [id number] 01:13:00 Test Item Value Reference Range Interpretation Comments UA Bili (test code = Negative *NA*(03/16/22 UA Bili) 8:13 PM) [facility] AND [id number] 01:13:00 Test Item Value Reference Range Interpretation Comments UA Blood (test code = Negative (03/16/22 8:13 UA Blood) PM) [facility] AND [id number] 01:13:00 Test Item Value Reference Range Interpretation Comments UA Urobilinogen (test code = UA 0.2 0.1-1.0 Urobilinogen) [facility] AND [id number] 01:13:00 Test Item Value Reference Range Interpretation Comments UA Nitrite (test code Positive *ABN*(03/16/22 = UA Nitrite) 8:13 PM) [facility] AND [id number] 01:13:00 Test Item Value Reference Range Interpretation Comments UA Leuk Est (test Moderate *ABN*(03/16/22 code = UA Leuk Est) 8:13 PM) [facility] AND [id number] 01:13:00 Test Item Value Reference Range Interpretation Comments UA Sq Epi (test code = UA Sq Epi) Few /LPF [facility] AND [id number] 01:13:00 Test Item Value Reference Range Interpretation Comments UA WBC (test code = 98 See_Comment [Automa mau message] The UA WBC) system which ge nerated this result transmit mau reference range : <=5. The reference range was not used to interpr et this result as elaine l/abnormal. [facility] AND [id number] 01:13:00 Test Item Value Reference Range Interpretation Comments UA RBC (test code = 2 See_Comment [Automa mau message] The UA RBC) system which ge nerated this result transmit mau reference range : <=2. The reference range was not used to interpr et this result as elaine l/abnormal. [facility] AND [id number] 01:13:00 Test Item Value Reference Range Interpretation Comments UA Bacteria (test code = UA Moderate /HPF Bacteria) [facility] AND [id number] 01:13:00 Test Item Value Reference Range Interpretation Comments UA Mucus (test code = UA Mucus) Few /LPF [facility] [id number] 01:13:00 Test Item Value Reference Range Interpretation Comments Culture: Urine (test >100,000 CFU/mL code = Culture: Escherichia coli Urine) Sensitivity Pending [facility] AND [id number] 01:13:00 Test Item Value Reference Range Interpretation Comments UA Color (test code = Yellow *NA*(03/16/22 UA Color) 8:13 PM) [facility] AND [id number] 01:13:00 Test Item Value Reference Range Interpretation Comments UA Turbidity (test code Slight Cloudy = UA Turbidity) (03/16/22 8:13 PM) [facility] AND [id number] 01:13:00 Test Item Value Reference Range Interpretation Comments UA Spec Grav (test code = UA Spec 1.020 1 Grav) [facility] AND [id number] 01:13:00 Test Item Value Reference Range Interpretation Comments UA pH (test code = UA pH) 6.0 1 5.0-8.0 [facility] AND [id number] 01:13:00 Test Item Value Reference Range Interpretation Comments UA Protein (test code Negative (03/16/22 8:13 = UA Protein) PM) [facility] AND [id number] 01:13:00 Test Item Value Reference Range Interpretation Comments UA Glucose (test code Negative (03/16/22 8:13 = UA Glucose) PM) [facility] AND [id number] 01:13:00 Test Item Value Reference Range Interpretation Comments UA Ketones (test code Negative *NA*(03/16/22 = UA Ketones) 8:13 PM) [facility] AND [id number] 01:13:00 Test Item Value Reference Range Interpretation Comments UA Bili (test code = Negative *NA*(03/16/22 [facility]A Bili) 8:13 PM) [facility] [id number] 01:13:00 Test Item Value Reference Range Interpretation Comments UA Blood (test code = Negative (03/16/22 8:13 UA Blood) PM) [facility] [id number] 01:13:00 Test Item Value Reference Range Interpretation Comments UA Urobilinogen (test code = UA 0.2 0.1-1.0 Urobilinogen) [facility] [id number] 01:13:00 Test Item Value Reference Range Interpretation Comments UA Nitrite (test code Positive *ABN*(03/16/22 = UA Nitrite) 8:13 PM) [facility] [id number] 01:13:00 Test Item Value Reference Range Interpretation Comments UA Leuk Est (test Moderate *ABN*(03/16/22 code = UA Leuk Est) 8:13 PM) [facility] [id number] 01:13:00 Test Item Value Reference Range Interpretation Comments UA Sq Epi (test code = UA Sq Epi) Few /LPF [facility] [id number] 01:13:00 Test Item Value Reference Range Interpretation Comments UA WBC (test code = 98 See_Comment [Automa mau message] The UA WBC) system which ge nerated this result transmit mau reference range : <=5. The reference range was not used to interpr et this result as elaine l/abnormal. [facility] [id number] 01:13:00 Test Item Value Reference Range Interpretation Comments UA RBC (test code = 2 See_Comment [Automa mau message] The UA RBC) system which ge nerated this result transmit mau reference range : <=2. The reference range was not used to interpr et this result as elaine l/abnormal. [facility] [id number] 01:13:00 Test Item Value Reference Range Interpretation Comments UA Bacteria (test code = UA Moderate /HPF Bacteria) [facility] [id number] 01:13:00 Test Item Value Reference Range Interpretation Comments UA Mucus (test code = UA Mucus) Few /LPF [facility] [id number] 01:13:00 Test Item Value Reference Range Interpretation Comments Culture: Urine (test >100,000 CFU/mL code = Culture: Escherichia coli Urine) Sensitivity Pending [facility] [id number] 01:13:00 Test Item Value Reference Range Interpretation Comments UA Color (test code = Yellow *NA*(03/16/22 UA Color) 8:13 PM) [facility] [id number] 01:13:00 Test Item Value Reference Range Interpretation Comments UA Turbidity (test code Slight Cloudy = UA Turbidity) (03/16/22 8:13 PM) [facility] [id number] 01:13:00 Test Item Value Reference Range Interpretation Comments UA Spec Grav (test code = UA Spec 1.020 1 Grav) [facility] [id number] 01:13:00 Test Item Value Reference Range Interpretation Comments UA Color (test code = Yellow *NA*(03/16/22 UA Color) 8:13 PM) [facility] [id number] 01:13:00 Test Item Value Reference Range Interpretation Comments UA pH (test code = UA pH) 6.0 1 5.0-8.0 [facility] [id number] 01:13:00 Test Item Value Reference Range Interpretation Comments UA Protein (test code Negative (03/16/22 8:13 = UA Protein) PM) [facility] [id number] 01:13:00 Test Item Value Reference Range Interpretation Comments UA Glucose (test code Negative (03/16/22 8:13 = UA Glucose) PM) [facility] [id number] 01:13:00 Test Item Value Reference Range Interpretation Comments UA Ketones (test code Negative *NA*(03/16/22 = UA Ketones) 8:13 PM) [facility] [id number] 01:13:00 Test Item Value Reference Range Interpretation Comments UA Bili (test code = Negative *NA*(03/16/22 UA Bili) 8:13 PM) [facility] [id number] 01:13:00 Test Item Value Reference Range Interpretation Comments UA Blood (test code = Negative (03/16/22 8:13 UA Blood) PM) [facility] [id number] 01:13:00 Test Item Value Reference Range Interpretation Comments UA Urobilinogen (test code = UA 0.2 0.1-1.0 Urobilinogen) [facility] [id number] 01:13:00 Test Item Value Reference Range Interpretation Comments UA Nitrite (test code Positive *ABN*(03/16/22 = UA Nitrite) 8:13 PM) [facility] [id number] 01:13:00 Test Item Value Reference Range Interpretation Comments UA Leuk Est (test Moderate *ABN*(03/16/22 code = UA Leuk Est) 8:13 PM) [facility] [id number] 01:13:00 Test Item Value Reference Range Interpretation Comments UA Sq Epi (test code = UA Sq Epi) Few /LPF [facility] [id number] 01:13:00 Test Item Value Reference Range Interpretation Comments UA Turbidity (test code Slight Cloudy = UA Turbidity) (03/16/22 8:13 PM) [facility] [id number] 01:13:00 Test Item Value Reference Range Interpretation Comments UA WBC (test code = 98 See_Comment [Automa mau message] The UA WBC) system which ge nerated this result transmit mau reference range : <=5. The reference range was not used to interpr et this result as elaine l/abnormal. [facility] [id number] 01:13:00 Test Item Value Reference Range Interpretation Comments UA RBC (test code = 2 See_Comment [Automa mau message] The UA RBC) system which ge nerated this result transmit mau reference range : <=2. The reference range was not used to interpr et this result as elaine l/abnormal. [facility] [id number] 01:13:00 Test Item Value Reference Range Interpretation Comments UA Bacteria (test code = UA Moderate /HPF Bacteria) [facility] [id number] 01:13:00 Test Item Value Reference Range Interpretation Comments UA Mucus (test code = UA Mucus) Few /LPF [facility]: [id number] 01:13:00 Test Item Value Reference Range Interpretation Comments Culture: Urine (test >100,000 CFU/mL code = Culture: Escherichia coli Urine) Sensitivity Pending [facility] AND [id number] 01:13:00 Test Item Value Reference Range Interpretation Comments UA Spec Grav (test code = UA Spec 1.020 1 Grav) [facility] AND [id number] 01:13:00 Test Item Value Reference Range Interpretation Comments UA pH (test code = UA pH) 6.0 1 5.0-8.0 [facility] AND [id number] 01:13:00 Test Item Value Reference Range Interpretation Comments UA Protein (test code Negative (03/16/22 8:13 = UA Protein) PM) [facility] AND [id number] 01:13:00 Test Item Value Reference Range Interpretation Comments UA Glucose (test code Negative (03/16/22 8:13 = UA Glucose) PM) [facility] AND [id number] 01:13:00 Test Item Value Reference Range Interpretation Comments UA Ketones (test code Negative *NA*(03/16/22 = UA Ketones) 8:13 PM) [facility] AND [id number] 01:13:00 Test Item Value Reference Range Interpretation Comments UA Bili (test code = Negative *NA*(03/16/22 UA Bili) 8:13 PM) [facility] AND [id number] 01:13:00 Test Item Value Reference Range Interpretation Comments UA Blood (test code = Negative (03/16/22 8:13 UA Blood) PM) [facility] AND [id number] 01:13:00 Test Item Value Reference Range Interpretation Comments UA Urobilinogen (test code = UA 0.2 0.1-1.0 Urobilinogen) [facility] AND [id number] 01:13:00 Test Item Value Reference Range Interpretation Comments UA Nitrite (test code Positive *ABN*(03/16/22 = UA Nitrite) 8:13 PM) [facility] AND [id number] 01:13:00 Test Item Value Reference Range Interpretation Comments UA Leuk Est (test Moderate *ABN*(03/16/22 code = UA Leuk Est) 8:13 PM) [facility] AND [id number] 01:13:00 Test Item Value Reference Range Interpretation Comments UA Color (test code = Yellow *NA*(03/16/22 UA Color) 8:13 PM) [facility] AND [id number] 01:13:00 Test Item Value Reference Range Interpretation Comments UA Turbidity (test code Slight Cloudy = UA Turbidity) (03/16/22 8:13 PM) [facility] AND [id number] 01:13:00 Test Item Value Reference Range Interpretation Comments UA Sq Epi (test code = UA Sq Epi) Few /LPF [facility] AND [id number] 01:13:00 Test Item Value Reference Range Interpretation Comments UA Spec Grav (test code = UA Spec 1.020 1 Grav) [facility] AND [id number] 01:13:00 Test Item Value Reference Range Interpretation Comments UA pH (test code = UA pH) 6.0 1 5.0-8.0 [facility] AND [id number] 01:13:00 Test Item Value Reference Range Interpretation Comments UA Protein (test code Negative (03/16/22 8:13 = UA Protein) PM) [facility] AND [id number] 01:13:00 Test Item Value Reference Range Interpretation Comments UA Glucose (test code Negative (03/16/22 8:13 = UA Glucose) PM) [facility] AND [id number] 01:13:00 Test Item Value Reference Range Interpretation Comments UA Ketones (test code Negative *NA*(03/16/22 = UA Ketones) 8:13 PM) [facility] AND [id number] 01:13:00 Test Item Value Reference Range Interpretation Comments UA Bili (test code = Negative *NA*(03/16/22 UA Bili) 8:13 PM) [facility] AND [id number] 01:13:00 Test Item Value Reference Range Interpretation Comments UA Blood (test code = Negative (03/16/22 8:13 UA Blood) PM) [facility] AND [id number] 01:13:00 Test Item Value Reference Range Interpretation Comments UA Urobilinogen (test code = UA 0.2 0.1-1.0 Urobilinogen) [facility] AND [id number] 01:13:00 Test Item Value Reference Range Interpretation Comments UA Nitrite (test code Positive *ABN*(03/16/22 = UA Nitrite) 8:13 PM) [facility] [id number] 01:13:00 Test Item Value Reference Range Interpretation Comments UA Leuk Est (test Moderate *ABN*(03/16/22 code = UA Leuk Est) 8:13 PM) [facility] [id number] 01:13:00 Test Item Value Reference Range Interpretation Comments UA WBC (test code = 98 See_Comment [Automa mau message] The UA WBC) system which ge nerated this result transmit mau reference range : <=5. The reference range was not used to interpr et this result as elaine l/abnormal. [facility] [id number] 01:13:00 Test Item Value Reference Range Interpretation Comments UA Sq Epi (test code = UA Sq Epi) Few /LPF [facility] [id number] 01:13:00 Test Item Value Reference Range Interpretation Comments UA WBC (test code = 98 See_Comment [Automa mau message] The UA WBC) system which ge nerated this result transmit mau reference range : <=5. The reference range was not used to interpr et this result as elaine l/abnormal. [facility] [id number] 01:13:00 Test Item Value Reference Range Interpretation Comments UA RBC (test code = 2 See_Comment [Automa mau message] The UA RBC) system which ge nerated this result transmit mau reference range : <=2. The reference range was not used to interpr et this result as elaine l/abnormal. [facility] [id number] 01:13:00 Test Item Value Reference Range Interpretation Comments UA Bacteria (test code = UA Moderate /HPF Bacteria) [facility] [id number] 01:13:00 Test Item Value Reference Range Interpretation Comments UA Mucus (test code = UA Mucus) Few /LPF [facility]: [id number] 01:13:00 Test Item Value Reference Range Interpretation Comments Culture: Urine (test >100,000 CFU/mL code = Culture: Escherichia coli Urine) Sensitivity Pending [facility] [id number] 01:13:00 Test Item Value Reference Range Interpretation Comments UA RBC (test code = 2 See_Comment [Automa mau message] The UA RBC) system which ge nerated this result transmit mau reference range : <=2. The reference range was not used to interpr et this result as elaine l/abnormal. [facility] [id number] 01:13:00 Test Item Value Reference Range Interpretation Comments UA Bacteria (test code = UA Moderate /HPF Bacteria) [facility] [id number] 01:13:00 Test Item Value Reference Range Interpretation Comments UA Mucus (test code = UA Mucus) Few /LPF [facility] [id number] 01:13:00 Test Item Value Reference Range Interpretation Comments Culture: Urine (test >100,000 CFU/mL code = Culture: Escherichia coli Urine) Sensitivity Pending [facility] [id number] 00:47:00 Test Item Value Reference Range Interpretation Comments HS Troponin I 1 Hr (test code = HS 4 Troponin I 1 Hr) [facility] [id number] 00:47:00 Test Item Value Reference Range Interpretation Comments HS Troponin I 0 to 1 See Note 2(03/16/22 Hour Delta (test code = 7:47 PM) HS Troponin I 0 to 1 Hour Delta) [facility] [id number] 00:47:00 Test Item Value Reference Range Interpretation Comments HS Troponin I 1 Hr (test code = HS 4 Troponin I 1 Hr) [facility] [id number] 00:47:00 Test Item Value Reference Range Interpretation Comments HS Troponin I 0 to 1 See Note 2(03/16/22 Hour Delta (test code = 7:47 PM) HS Troponin I 0 to 1 Hour Delta) [facility] [id number] 00:47:00 Test Item Value Reference Range Interpretation Comments HS Troponin I 1 Hr (test code = HS 4 Troponin I 1 Hr) [facility] [id number] 00:47:00 Test Item Value Reference Range Interpretation Comments HS Troponin I 0 to 1 See Note 2(03/16/22 Hour Delta (test code = 7:47 PM) HS Troponin I 0 to 1 Hour Delta) [facility] [id number] 00:47:00 Test Item Value Reference Range Interpretation Comments HS Troponin I 1 Hr (test code = HS 4 Troponin I 1 Hr) [facility] [id number] 00:47:00 Test Item Value Reference Range Interpretation Comments HS Troponin I 0 to 1 See Note 2(03/16/22 Hour Delta (test code = 7:47 PM) HS Troponin I 0 to 1 Hour Delta) [facility] [id number] 00:47:00 Test Item Value Reference Range Interpretation Comments HS Troponin I 1 Hr (test code = HS 4 Troponin I 1 Hr) [facility] [id number] 00:47:00 Test Item Value Reference Range Interpretation Comments HS Troponin I 0 to 1 See Note 2(03/16/22 Hour Delta (test code = 7:47 PM) HS Troponin I 0 to 1 Hour Delta) [facility] [id number] 00:47:00 Test Item Value Reference Range Interpretation Comments HS Troponin I 1 Hr (test code = HS 4 Troponin I 1 Hr) [facility] [id number] 00:47:00 Test Item Value Reference Range Interpretation Comments HS Troponin I 0 to 1 See Note 2(03/16/22 Hour Delta (test code = 7:47 PM) HS Troponin I 0 to 1 Hour Delta) [facility] [id number] 00:47:00 Test Item Value Reference Range Interpretation Comments HS Troponin I 1 Hr (test code = HS 4 Troponin I 1 Hr) [facility] [id number] 00:47:00 Test Item Value Reference Range Interpretation Comments HS Troponin I 0 to 1 See Note 2(03/16/22 Hour Delta (test code = 7:47 PM) HS Troponin I 0 to 1 Hour Delta) [facility] [id number] 00:47:00 Test Item Value Reference Range Interpretation Comments HS Troponin I 1 Hr (test code = HS 4 Troponin I 1 Hr) [facility] [id number] 00:47:00 Test Item Value Reference Range Interpretation Comments HS Troponin I 0 to 1 See Note 2(03/16/22 Hour Delta (test code = 7:47 PM) HS Troponin I 0 to 1 Hour Delta) [facility] [id number] 00:47:00 Test Item Value Reference Range Interpretation Comments HS Troponin I 1 Hr (test code = HS 4 Troponin I 1 Hr) [facility] ApSannCARDIAC [id number] 00:47:00 Test Item Value Reference Range Interpretation Comments HS Troponin I 0 to 1 See Note 2(03/16/22 Hour Delta (test code = 7:47 PM) HS Troponin I 0 to 1 Hour Delta) [facility] [facility] ApSannCARNezasaAC [id number] 00:47:00 Test Item Value Reference Range Interpretation Comments HS Troponin I 1 Hr (test code = HS 4 Troponin I 1 Hr) [facility] [facility] ApSannLFR Communications, IncAC [id number] 00:47:00 Test Item Value Reference Range Interpretation Comments HS Troponin I 0 to 1 See Note 2(03/16/22 Hour Delta (test code = 7:47 PM) HS Troponin I 0 to 1 Hour Delta) [facility] [employer] ApSannLFR Communications, IncAC [id number] 00:47:00 Test Item Value Reference Range Interpretation Comments HS Troponin I 1 Hr (test code = HS 4 Troponin I 1 Hr) [facility] [employer] [id number] 00:47:00 Test Item Value Reference Range Interpretation Comments HS Troponin I 0 to 1 See Note 2(03/16/22 Hour Delta (test code = 7:47 PM) HS Troponin I 0 to 1 Hour Delta) [facility] [employer]AC [id number] 23:29:00 Test Item Value Reference Range Interpretation Comments Total CK (test code = Total CK) 165 12-191 [facility] [employer] [id number] 23:29:00 Test Item Value Reference Range Interpretation Comments HS Troponin I Baseline (test code = HS 4 Troponin I Baseline) [facility] [employer] [id number] 23:29:00 Test Item Value Reference Range Interpretation Comments Glucose Lvl (test code = Glucose Lvl) 105 70-99 [facility] [employer] [id number] 23:29:00 Test Item Value Reference Range Interpretation Comments BUN (test code = BUN) 11 - [facility] [employer] [id number] 23:29:00 Test Item Value Reference Range Interpretation Comments Creatinine Lvl (test code = Creatinine 0.93 0.50-1.40 Lvl) [facility] [employer] [id number] 23:29:00 Test Item Value Reference Range Interpretation Comments Sodium Lvl (test code = Sodium Lvl) 139 135-145 [facility] [id number] 23:29:00 Test Item Value Reference Range Interpretation Comments Potassium Lvl (test code = Potassium 4.2 3.5-5.1 Lvl) [facility] [id number] 23:29:00 Test Item Value Reference Range Interpretation Comments Chloride Lvl (test code = Chloride Lvl) 107 95-109 [facility] [id number] 23:29:00 Test Item Value Reference Range Interpretation Comments CO2 (test code = CO2) 25 24-32 [facility] [id number] 23:29:00 Test Item Value Reference Range Interpretation Comments Calcium Lvl (test code = Calcium Lvl) 8.8 8.5-10.5 [facility] [id number] 23:29:00 Test Item Value Reference Range Interpretation Comments Total Protein (test code = Total 6.5 6.4-8.4 Protein) [facility] [id number] 23:29:00 Test Item Value Reference Range Interpretation Comments Albumin Lvl (test code = Albumin Lvl) 3.4 3.5-5.0 [facility] [id number] 23:29:00 Test Item Value Reference Range Interpretation Comments ALT (test code = ALT) 93 See_Comment [Auto mated message] The system which ge nerated this result transmit mau reference range : <=65. The reference range was not used to interpr et this result as elaine l/abnormal. [facility] [employer] [id number] 23:29:00 Test Item Value Reference Range Interpretation Comments AST (test code = AST) 84 See_Comment [Auto mated message] The system which ge nerated this result transmit mau reference range : <=37. The reference range was not used to interpr et this result as elaine l/abnormal. [facility] [employer] [id number] 23:29:00 Test Item Value Reference Range Interpretation Comments Alk Phos (test code = Alk Phos) 150 39-136 [facility] [id number] 23:29:00 Test Item Value Reference Range Interpretation Comments Bili Total (test code = Bili Total) 0.6 0.2-1.3 [place] [id number] 23:29:00 Test Item Value Reference Range Interpretation Comments AGAP (test code = AGAP) 11.2 10.0-20.0 [place] [id number] 23:29:00 Test Item Value Reference Range Interpretation Comments B/C Ratio (test code = B/C Ratio) 12 1 6-25 [place] [id number] 23:29:00 Test Item Value Reference Range Interpretation Comments Globulin (test code = Globulin) 3.1 2.7-4.2 [place] [id number] 23:29:00 Test Item Value Reference Range Interpretation Comments A/G Ratio (test code = A/G Ratio) 1.1 1 0.7-1.6 [place] [id number] 23:29:00 Test Item Value Reference Range Interpretation Comments eGFR (test code = eGFR) 71 [place] 682882-07-26 23:29:00 Test Item Value Reference Range Interpretation Comments WBC (test code = WBC) 3.1 3.7-10.4 [place] 682882-07-26 23:29:00 Test Item Value Reference Range Interpretation Comments RBC (test code = RBC) 3.42 4.20-5.40 [place] 682882-07-26 23:29:00 Test Item Value Reference Range Interpretation Comments Hgb (test code = Hgb) 11.6 12.0-16.0 [place] 682882-07-26 23:29:00 Test Item Value Reference Range Interpretation Comments Hct (test code = Hct) 35.3 36.0-48.0 [place] 682882-07-26 23:29:00 Test Item Value Reference Range Interpretation Comments MCV (test code = MCV) 103.5 80.0-98.0 [place] 682882-07-26 23:29:00 Test Item Value Reference Range Interpretation Comments MCH (test code = MCH) 33.8 pg 27.0-31.0 [place] 682882-07-26 23:29:00 Test Item Value Reference Range Interpretation Comments MCHC (test code = MCHC) 32.7 32.0-36.0 [place] 682882-07-26 23:29:00 Test Item Value Reference Range Interpretation Comments RDW (test code = RDW) 16.3 11.5-14.5 [place] 682882-07-26 23:29:00 Test Item Value Reference Range Interpretation Comments Platelet (test code = Platelet) 135 133-450 [place] 682882-07-26 23:29:00 Test Item Value Reference Range Interpretation Comments MPV (test code = MPV) 8.6 7.4-10.4 [place] [address]-07-26 23:29:00 Test Item Value Reference Range Interpretation Comments D-Dimer (test code = D-Dimer) 1.86 [place] [address]-07-26 23:29:00 Test Item Value Reference Range Interpretation Comments Segs (test code = Segs) 48.9 45.0-75.0 [place] [address]-07-26 23:29:00 Test Item Value Reference Range Interpretation Comments Lymphocytes (test code = Lymphocytes) 37.4 20.0-40.0 [place] 682882-07-26 23:29:00 Test Item Value Reference Range Interpretation Comments Monocytes (test code = Monocytes) 10.6 2.0-12.0 [place] [address]-07-26 23:29:00 Test Item Value Reference Range Interpretation Comments Eosinophils (test code = 2.5 See_Comment [A utomated message] The Eosinophils) system which ge nerated this result tra nsmitted reference range : <=4.0. The reference r denia was not used to int erpret this result as normal/abnormal . [place] 682882-07-26 23:29:00 Test Item Value Reference Range Interpretation Comments Basophils (test code = 0.6 See_Comment [Aut omated message] The Basophils) system which ge nerated this result tra nsmitted reference range : <=1.0. The reference r denia was not used to int erpret this result as normal/abnormal . [place] 682882-07-26 23:29:00 Test Item Value Reference Range Interpretation Comments Neutrophils # (test code = Neutrophils 1.5 1.5-8.1 #) [place] 682882-07-26 23:29:00 Test Item Value Reference Range Interpretation Comments Lymphocytes # (test code = Lymphocytes 1.1 1.0-5.5 #) [id number] 23:29:00 Test Item Value Reference Range Interpretation Comments Monocytes # (test code 0.3 See_Comment [Aut omated message] The = Monocytes #) system which generated this result tra nsmitted reference range : <=0.8. The reference r denia was not used to int erpret this result as normal/abnormal . [facility] [id number] 23:29:00 Test Item Value Reference Range Interpretation Comments Eosinophils # (test code 0.1 See_Comment [A utomated message] The = Eosinophils #) system whic h generated this result tra nsmitted reference range : <=0.5. The reference r denia was not used to int erpret this result as normal/abnormal . [facility] Lancast[id number] 23:29:00 Test Item Value Reference Range Interpretation Comments Macrocyte (test code = 1+ *ABN*(03/16/22 Macrocyte) 6:29 PM) [facility] LancasterUpptalk [id number] 23:29:00 Test Item Value Reference Range Interpretation Comments Total CK (test code = Total CK) 165 12-191 [facility] LancasterAppShare2022-[facility] 23:29:00 Test Item Value Reference Range Interpretation Comments HS Troponin I Baseline (test code = HS 4 Troponin I Baseline) [facility] [employer]2022-07-26 23:29:00 Test Item Value Reference Range Interpretation Comments Glucose Lvl (test code = Glucose Lvl) 105 70-99 [facility] [employer] [id number] 23:29:00 Test Item Value Reference Range Interpretation Comments BUN (test code = BUN) 11 -22 [facility] [employer]2022-07-26 23:29:00 Test Item Value Reference Range Interpretation Comments Creatinine Lvl (test code = Creatinine 0.93 0.50-1.40 Lvl) [facility] [employer]2022-07-26 23:29:00 Test Item Value Reference Range Interpretation Comments Sodium Lvl (test code = Sodium Lvl) 139 135-145 [facility] [employer]2022-07-26 23:29:00 Test Item Value Reference Range Interpretation Comments Potassium Lvl (test code = Potassium 4.2 3.5-5.1 Lvl) [facility] [employer]2022-07-26 23:29:00 Test Item Value Reference Range Interpretation Comments Chloride Lvl (test code = Chloride Lvl) 107 95-109 [facility] LancasterKolor[facility] [id number] 23:29:00 Test Item Value Reference Range Interpretation Comments CO2 (test code = CO2) 25 24-32 [facility] LancasterImmunovative TherapiesANG[place] [id number] 23:29:00 Test Item Value Reference Range Interpretation Comments Calcium Lvl (test code = Calcium Lvl) 8.8 8.5-10.5 [facility] LancasterKolor[facility] [id number] 23:29:00 Test Item Value Reference Range Interpretation Comments Total Protein (test code = Total 6.5 6.4-8.4 Protein) [facility] [id number] 23:29:00 Test Item Value Reference Range Interpretation Comments Albumin Lvl (test code = Albumin Lvl) 3.4 3.5-5.0 [facility] [id number] 23:29:00 Test Item Value Reference Range Interpretation Comments ALT (test code = ALT) 93 See_Comment [Auto mated message] The system which ge nerated this result transmit mau reference range : <=65. The reference range was not used to interpr et this result as elaine l/abnormal. [facility] [employer] [id number] 23:29:00 Test Item Value Reference Range Interpretation Comments AST (test code = AST) 84 See_Comment [Auto mated message] The system which ge nerated this result transmit mau reference range : <=37. The reference range was not used to interpr et this result as elaine l/abnormal. [facility] [employer] [id number] 23:29:00 Test Item Value Reference Range Interpretation Comments Alk Phos (test code = Alk Phos) 150 39-136 [facility] [id number] 23:29:00 Test Item Value Reference Range Interpretation Comments Bili Total (test code = Bili Total) 0.6 0.2-1.3 [facility] [id number] 23:29:00 Test Item Value Reference Range Interpretation Comments AGAP (test code = AGAP) 11.2 10.0-20.0 [facility] [employer] [id number] 23:29:00 Test Item Value Reference Range Interpretation Comments B/C Ratio (test code = B/C Ratio) 12 1 6-25 [facility] [id number] 23:29:00 Test Item Value Reference Range Interpretation Comments Globulin (test code = Globulin) 3.1 2.7-4.2 [facility] [id number] 23:29:00 Test Item Value Reference Range Interpretation Comments A/G Ratio (test code = A/G Ratio) 1.1 1 0.7-1.6 [place] 773372-07-26 23:29:00 Test Item Value Reference Range Interpretation Comments eGFR (test code = eGFR) 71 [facility]ImbvsrqKLJKEKABKQ9854-14-33 23:29:00 Test Item Value Reference Range Interpretation Comments WBC (test code = WBC) 3.1 3.7-10.4 [facility] CenterIilacmsHQDAUJTVCV1317-74-64 23:29:00 Test Item Value Reference Range Interpretation Comments RBC (test code = RBC) 3.42 4.20-5.40 [facility] CenterFrfiiirGSMJIASEJT7915-98-63 23:29:00 Test Item Value Reference Range Interpretation Comments Hgb (test code = Hgb) 11.6 12.0-16.0 [facility] CenterXtfxgwcFRDEHDZPRP4343-86-29 23:29:00 Test Item Value Reference Range Interpretation Comments Hct (test code = Hct) 35.3 36.0-48.0 [facility] CenterUqxxwxzRFMMELEFBF3743-76-66 23:29:00 Test Item Value Reference Range Interpretation Comments MCV (test code = MCV) 103.5 80.0-98.0 [facility] CenterVxmztzxWCAASJVXLL3968-31-79 23:29:00 Test Item Value Reference Range Interpretation Comments MCH (test code = MCH) 33.8 pg 27.0-31.0 [place] 682882-07-26 23:29:00 Test Item Value Reference Range Interpretation Comments MCHC (test code = MCHC) 32.7 32.0-36.0 [place] 682882-07-26 23:29:00 Test Item Value Reference Range Interpretation Comments RDW (test code = RDW) 16.3 11.5-14.5 [facility] [id number] 23:29:00 Test Item Value Reference Range Interpretation Comments Platelet (test code = Platelet) 135 133-450 [facility] CenterGwftvvwUOBIKMCIVC9056-80-29 23:29:00 Test Item Value Reference Range Interpretation Comments MPV (test code = MPV) 8.6 7.4-10.4 [place] 682882-07-26 23:29:00 Test Item Value Reference Range Interpretation Comments D-Dimer (test code = D-Dimer) 1.86 [place] 682882-07-26 23:29:00 Test Item Value Reference Range Interpretation Comments Segs (test code = Segs) 48.9 45.0-75.0 [place] 682882-07-26 23:29:00 Test Item Value Reference Range Interpretation Comments Lymphocytes (test code = Lymphocytes) 37.4 20.0-40.0 [place] 682882-07-26 23:29:00 Test Item Value Reference Range Interpretation Comments Monocytes (test code = Monocytes) 10.6 2.0-12.0 [place] 682882-07-26 23:29:00 Test Item Value Reference Range Interpretation Comments Eosinophils (test code = 2.5 See_Comment [A utomated message] The Eosinophils) system which ge nerated this result tra nsmitted reference range : <=4.0. The reference r denia was not used to int erpret this result as normal/abnormal . [place] 682882-07-26 23:29:00 Test Item Value Reference Range Interpretation Comments Basophils (test code = 0.6 See_Comment [Aut omated message] The Basophils) system which ge nerated this result tra nsmitted reference range : <=1.0. The reference r denia was not used to int erpret this result as normal/abnormal . [place] 682882-07-26 23:29:00 Test Item Value Reference Range Interpretation Comments Neutrophils # (test code = Neutrophils 1.5 1.5-8.1 #) [place] 682882-07-26 23:29:00 Test Item Value Reference Range Interpretation Comments Lymphocytes # (test code = Lymphocytes 1.1 1.0-5.5 #) [place] 682882-07-26 23:29:00 Test Item Value Reference Range Interpretation Comments Monocytes # (test code 0.3 See_Comment [Aut omated message] The = Monocytes #) system which generated this result tra nsmitted reference range : <=0.8. The reference r denia was not used to int erpret this result as normal/abnormal . [facility] [id number] 23:29:00 Test Item Value Reference Range Interpretation Comments Eosinophils # (test code 0.1 See_Comment [A utomated message] The = Eosinophils #) system [employer] h generated this result tra nsmitted reference range : <=0.5. The reference r denia was not used to int erpret this result as normal/abnormal . [facility] La[id number] 23:29:00 Test Item Value Reference Range Interpretation Comments Macrocyte (test code = 1+ *ABN*(03/16/22 Macrocyte) 6:29 PM) [facility] LancasterUpptalk [id number] 23:29:00 Test Item Value Reference Range Interpretation Comments Total CK (test code = Total CK) 165 12-191 [facility] LancasterBest [facility] [id number] 23:29:00 Test Item Value Reference Range Interpretation Comments HS Troponin I Baseline (test code = HS 4 Troponin I Baseline) [facility] LancasterSOLEM [id number] 23:29:00 Test Item Value Reference Range Interpretation Comments Glucose Lvl (test code = Glucose Lvl) 105 70-99 [facility] [employer] [id number] 23:29:00 Test Item Value Reference Range Interpretation Comments BUN (test code = BUN) 11 - [facility] [id number] 23:29:00 Test Item Value Reference Range Interpretation Comments Creatinine Lvl (test code = Creatinine 0.93 0.50-1.40 Lvl) [facility] LancasterSOLEM [id number] 23:29:00 Test Item Value Reference Range Interpretation Comments Sodium Lvl (test code = Sodium Lvl) 139 135-145 [facility] LancasterK[facility] [id number] 23:29:00 Test Item Value Reference Range Interpretation Comments Potassium Lvl (test code = Potassium 4.2 3.5-5.1 Lvl) [facility] [id number] 23:29:00 Test Item Value Reference Range Interpretation Comments Chloride Lvl (test code = Chloride Lvl) 107 95-109 [facility] [id number] 23:29:00 Test Item Value Reference Range Interpretation Comments CO2 (test code = CO2) -32 [facility] LancasterImmunovative TherapiesCHEM [id number] 23:29:00 Test Item Value Reference Range Interpretation Comments Calcium Lvl (test code = Calcium Lvl) 8.8 8.5-10.5 [facility] LancasterK[facility] [id number] 23:29:00 Test Item Value Reference Range Interpretation Comments Total Protein (test code = Total 6.5 6.4-8.4 Protein) [facility] LancasterK[facility] [id number] 23:29:00 Test Item Value Reference Range Interpretation Comments Albumin Lvl (test code = Albumin Lvl) 3.4 3.5-5.0 [facility] [employer] [id number] 23:29:00 Test Item Value Reference Range Interpretation Comments ALT (test code = ALT) 93 See_Comment [Auto mated message] The system which ge nerated this result transmit mau reference range : <=65. The reference range was not used to interpr et this result as elaine l/abnormal. [facility] [employer] [id number] 23:29:00 Test Item Value Reference Range Interpretation Comments AST (test code = AST) 84 See_Comment [Auto mated message] The system which ge nerated this result transmit mau reference range : <=37. The reference range was not used to interpr et this result as elaine l/abnormal. [facility] [employer] [id number] 23:29:00 Test Item Value Reference Range Interpretation Comments Alk Phos (test code = Alk Phos) 150 39-136 [facility] [employer] [id number] 23:29:00 Test Item Value Reference Range Interpretation Comments Bili Total (test code = Bili Total) 0.6 0.2-1.3 [facility] [employer] [id number] 23:29:00 Test Item Value Reference Range Interpretation Comments AGAP (test code = AGAP) 11.2 10.0-20.0 [facility] [employer] [id number] 23:29:00 Test Item Value Reference Range Interpretation Comments B/C Ratio (test code = B/C Ratio) 12 1 6-25 [facility] [employer] [id number] 23:29:00 Test Item Value Reference Range Interpretation Comments Globulin (test code = Globulin) 3.1 2.7-4.2 [facility] [employer] [id number] 23:29:00 Test Item Value Reference Range Interpretation Comments A/G Ratio (test code = A/G Ratio) 1.1 1 0.7-1.6 [facility]2022-07-26 23:29:00 Test Item Value Reference Range Interpretation Comments eGFR (test code = eGFR) 71 [place] 682882-07-26 23:29:00 Test Item Value Reference Range Interpretation Comments WBC (test code = WBC) 3.1 3.7-10.4 [place] [address]-07-26 23:29:00 Test Item Value Reference Range Interpretation Comments RBC (test code = RBC) 3.42 4.20-5.40 [place] [address]-07-26 23:29:00 Test Item Value Reference Range Interpretation Comments Hgb (test code = Hgb) 11.6 12.0-16.0 [place] [address]-07-26 23:29:00 Test Item Value Reference Range Interpretation Comments Hct (test code = Hct) 35.3 36.0-48.0 [place] [address]-07-26 23:29:00 Test Item Value Reference Range Interpretation Comments MCV (test code = MCV) 103.5 80.0-98.0 [place] [address]-07-26 23:29:00 Test Item Value Reference Range Interpretation Comments MCH (test code = MCH) 33.8 pg 27.0-31.0 [place] 682882-07-26 23:29:00 Test Item Value Reference Range Interpretation Comments MCHC (test code = MCHC) 32.7 32.0-36.0 [place] 682882-07-26 23:29:00 Test Item Value Reference Range Interpretation Comments RDW (test code = RDW) 16.3 11.5-14.5 [place] [address]-07-26 23:29:00 Test Item Value Reference Range Interpretation Comments Platelet (test code = Platelet) 135 133-450 [place] 682882-07-26 23:29:00 Test Item Value Reference Range Interpretation Comments MPV (test code = MPV) 8.6 7.4-10.4 [place] 682882-07-26 23:29:00 Test Item Value Reference Range Interpretation Comments D-Dimer (test code = D-Dimer) 1.86 [place] 682882-07-26 23:29:00 Test Item Value Reference Range Interpretation Comments Segs (test code = Segs) 48.9 45.0-75.0 [place] 682882-07-26 23:29:00 Test Item Value Reference Range Interpretation Comments Lymphocytes (test code = Lymphocytes) 37.4 20.0-40.0 [place] 682882-07-26 23:29:00 Test Item Value Reference Range Interpretation Comments Monocytes (test code = Monocytes) 10.6 2.0-12.0 [place] [address]-07-26 23:29:00 Test Item Value Reference Range Interpretation Comments Eosinophils (test code = 2.5 See_Comment [A utomated message] The Eosinophils) system which ge nerated this result tra nsmitted reference range : <=4.0. The reference r denia was not used to int erpret this result as normal/abnormal . [place] 682882-07-26 23:29:00 Test Item Value Reference Range Interpretation Comments Basophils (test code = 0.6 See_Comment [Aut omated message] The Basophils) system which ge nerated this result tra nsmitted reference range : <=1.0. The reference r denia was not used to int erpret this result as normal/abnormal . [place] 682882-07-26 23:29:00 Test Item Value Reference Range Interpretation Comments Neutrophils # (test code = Neutrophils 1.5 1.5-8.1 #) [place] 682882-07-26 23:29:00 Test Item Value Reference Range Interpretation Comments Lymphocytes # (test code = Lymphocytes 1.1 1.0-5.5 #) [place] [address]-07-26 23:29:00 Test Item Value Reference Range Interpretation Comments Monocytes # (test code 0.3 See_Comment [Aut omated message] The = Monocytes #) system which generated this result tra nsmitted reference range : <=0.8. The reference r denia was not used to int erpret this result as normal/abnormal . [place] 682882-07-26 23:29:00 Test Item Value Reference Range Interpretation Comments Eosinophils # (test code 0.1 See_Comment [A utomated message] The = Eosinophils #) system whic h generated this result tra nsmitted reference range : <=0.5. The reference r denia was not used to int erpret this result as normal/abnormal . [id number] 23:29:00 Test Item Value Reference Range Interpretation Comments Macrocyte (test code = 1+ *ABN*(03/16/22 Macrocyte) 6:29 PM) [facility]GLOLIV[facility] [id number] 23:29:00 Test Item Value Reference Range Interpretation Comments Total CK (test code = Total CK) 165 12-191 [facility] [id number] 23:29:00 Test Item Value Reference Range Interpretation Comments HS Troponin I Baseline (test code = HS 4 Troponin I Baseline) [facility] [id number] 23:29:00 Test Item Value Reference Range Interpretation Comments Glucose Lvl (test code = Glucose Lvl) 105 70-99 [facility] [id number] 23:29:00 Test Item Value Reference Range Interpretation Comments BUN (test code = BUN) 11 03-12 [facility] [id number] 23:29:00 Test Item Value Reference Range Interpretation Comments Creatinine Lvl (test code = Creatinine 0.93 0.50-1.40 Lvl) [facility] [id number] 23:29:00 Test Item Value Reference Range Interpretation Comments Sodium Lvl (test code = Sodium Lvl) 139 135-145 [facility] [id number] 23:29:00 Test Item Value Reference Range Interpretation Comments Potassium Lvl (test code = Potassium 4.2 3.5-5.1 Lvl) [facility] [id number] 23:29:00 Test Item Value Reference Range Interpretation Comments Chloride Lvl (test code = Chloride Lvl) 107 95-109 [facility] [id number] 23:29:00 Test Item Value Reference Range Interpretation Comments CO2 (test code = CO2) 25 24-32 [place] 773372-07-26 23:29:00 Test Item Value Reference Range Interpretation Comments Calcium Lvl (test code = Calcium Lvl) 8.8 8.5-10.5 [facility] [id number] 23:29:00 Test Item Value Reference Range Interpretation Comments Total Protein (test code = Total 6.5 6.4-8.4 Protein) [place] 773372-07-26 23:29:00 Test Item Value Reference Range Interpretation Comments Albumin Lvl (test code = Albumin Lvl) 3.4 3.5-5.0 [place] 773372-07-26 23:29:00 Test Item Value Reference Range Interpretation Comments ALT (test code = ALT) 93 See_Comment [Auto mated message] The system which ge nerated this result transmit mau reference range : <=65. The reference range was not used to interpr et this result as elaine l/abnormal. [place] 773372-07-26 23:29:00 Test Item Value Reference Range Interpretation Comments AST (test code = AST) 84 See_Comment [Auto mated message] The system which ge nerated this result transmit mau reference range : <=37. The reference range was not used to interpr et this result as elaine l/abnormal. [place] 773372-07-26 23:29:00 Test Item Value Reference Range Interpretation Comments Alk Phos (test code = Alk Phos) 150 39-136 [place] 773372-07-26 23:29:00 Test Item Value Reference Range Interpretation Comments Bili Total (test code = Bili Total) 0.6 0.2-1.3 [place] 773372-07-26 23:29:00 Test Item Value Reference Range Interpretation Comments AGAP (test code = AGAP) 11.2 10.0-20.0 [place] 773372-07-26 23:29:00 Test Item Value Reference Range Interpretation Comments B/C Ratio (test code = B/C Ratio) 12 1 6-25 [place] 773372-07-26 23:29:00 Test Item Value Reference Range Interpretation Comments Globulin (test code = Globulin) 3.1 2.7-4.2 [place] 773372-07-26 23:29:00 Test Item Value Reference Range Interpretation Comments A/G Ratio (test code = A/G Ratio) 1.1 1 0.7-1.6 [place] 773372-07-26 23:29:00 Test Item Value Reference Range Interpretation Comments eGFR (test code = eGFR) 71 [place] 682882-07-26 23:29:00 Test Item Value Reference Range Interpretation Comments WBC (test code = WBC) 3.1 3.7-10.4 [place] 682882-07-26 23:29:00 Test Item Value Reference Range Interpretation Comments RBC (test code = RBC) 3.42 4.20-5.40 [place] 682882-07-26 23:29:00 Test Item Value Reference Range Interpretation Comments Hgb (test code = Hgb) 11.6 12.0-16.0 [place] 682882-07-26 23:29:00 Test Item Value Reference Range Interpretation Comments Hct (test code = Hct) 35.3 36.0-48.0 [place] 682882-07-26 23:29:00 Test Item Value Reference Range Interpretation Comments MCV (test code = MCV) 103.5 80.0-98.0 [place] 682882-07-26 23:29:00 Test Item Value Reference Range Interpretation Comments MCH (test code = MCH) 33.8 pg 27.0-31.0 [place] 682882-07-26 23:29:00 Test Item Value Reference Range Interpretation Comments MCHC (test code = MCHC) 32.7 32.0-36.0 [place] 682882-07-26 23:29:00 Test Item Value Reference Range Interpretation Comments RDW (test code = RDW) 16.3 11.5-14.5 [place] 682882-07-26 23:29:00 Test Item Value Reference Range Interpretation Comments Platelet (test code = Platelet) 135 133-450 [place] 682882-07-26 23:29:00 Test Item Value Reference Range Interpretation Comments MPV (test code = MPV) 8.6 7.4-10.4 [place] [address]-07-26 23:29:00 Test Item Value Reference Range Interpretation Comments D-Dimer (test code = D-Dimer) 1.86 [place] 682882-07-26 23:29:00 Test Item Value Reference Range Interpretation Comments Segs (test code = Segs) 48.9 45.0-75.0 [place] 682882-07-26 23:29:00 Test Item Value Reference Range Interpretation Comments Lymphocytes (test code = Lymphocytes) 37.4 20.0-40.0 [place] 682882-07-26 23:29:00 Test Item Value Reference Range Interpretation Comments Monocytes (test code = Monocytes) 10.6 2.0-12.0 [place] 682882-07-26 23:29:00 Test Item Value Reference Range Interpretation Comments Eosinophils (test code = 2.5 See_Comment [A utomated message] The Eosinophils) system which ge nerated this result tra nsmitted reference range : <=4.0. The reference r denia was not used to int erpret this result as normal/abnormal . [place] 682882-07-26 23:29:00 Test Item Value Reference Range Interpretation Comments Basophils (test code = 0.6 See_Comment [Aut omated message] The Basophils) system which ge nerated this result tra nsmitted reference range : <=1.0. The reference r denia was not used to int erpret this result as normal/abnormal . [place] 682882-07-26 23:29:00 Test Item Value Reference Range Interpretation Comments Neutrophils # (test code = Neutrophils 1.5 1.5-8.1 #) [place] 682882-07-26 23:29:00 Test Item Value Reference Range Interpretation Comments Lymphocytes # (test code = Lymphocytes 1.1 1.0-5.5 #) [place] 682882-07-26 23:29:00 Test Item Value Reference Range Interpretation Comments Monocytes # (test code 0.3 See_Comment [Aut omated message] The = Monocytes #) system which generated this result tra nsmitted reference range : <=0.8. The reference r denia was not used to int erpret this result as normal/abnormal . [place] 682882-07-26 23:29:00 Test Item Value Reference Range Interpretation Comments Eosinophils # (test code 0.1 See_Comment [A utomated message] The = Eosinophils #) system whic h generated this result tra nsmitted reference range : <=0.5. The reference r denia was not used to int erpret this result as normal/abnormal . [place] 682882-07-26 23:29:00 Test Item Value Reference Range Interpretation Comments Macrocyte (test code = 1+ *ABN*(03/16/22 Macrocyte) 6:29 PM) [facility]GL[facility] [id number] 23:29:00 Test Item Value Reference Range Interpretation Comments Total CK (test code = Total CK) 165 12-191 [facility] [id number] 23:29:00 Test Item Value Reference Range Interpretation Comments HS Troponin I Baseline (test code = HS 4 Troponin I Baseline) [facility] [id number] 23:29:00 Test Item Value Reference Range Interpretation Comments Glucose Lvl (test code = Glucose Lvl) 105 70-99 [facility] [id number] 23:29:00 Test Item Value Reference Range Interpretation Comments BUN (test code = BUN) 11 03-12 [facility] [id number] 23:29:00 Test Item Value Reference Range Interpretation Comments Creatinine Lvl (test code = Creatinine 0.93 0.50-1.40 Lvl) [facility] [id number] 23:29:00 Test Item Value Reference Range Interpretation Comments Sodium Lvl (test code = Sodium Lvl) 139 135-145 [facility] [id number] 23:29:00 Test Item Value Reference Range Interpretation Comments Potassium Lvl (test code = Potassium 4.2 3.5-5.1 Lvl) [facility] [id number] 23:29:00 Test Item Value Reference Range Interpretation Comments Chloride Lvl (test code = Chloride Lvl) 107 95-109 [facility] [id number] 23:29:00 Test Item Value Reference Range Interpretation Comments CO2 (test code = CO2) 25 24-32 [facility] [id number] 23:29:00 Test Item Value Reference Range Interpretation Comments Calcium Lvl (test code = Calcium Lvl) 8.8 8.5-10.5 [facility] [id number] 23:29:00 Test Item Value Reference Range Interpretation Comments Total Protein (test code = Total 6.5 6.4-8.4 Protein) [facility] [id number] 23:29:00 Test Item Value Reference Range Interpretation Comments Albumin Lvl (test code = Albumin Lvl) 3.4 3.5-5.0 [facility] [id number] 23:29:00 Test Item Value Reference Range Interpretation Comments ALT (test code = ALT) 93 See_Comment [Auto mated message] The system which ge nerated this result transmit mau reference range : <=65. The reference range was not used to interpr et this result as elaine l/abnormal. [facility] [id number] 23:29:00 Test Item Value Reference Range Interpretation Comments AST (test code = AST) 84 See_Comment [Auto mated message] The system which ge nerated this result transmit mau reference range : <=37. The reference range was not used to interpr et this result as elaine l/abnormal. [facility] [employer] [id number] 23:29:00 Test Item Value Reference Range Interpretation Comments Alk Phos (test code = Alk Phos) 150 39-136 [facility] [id number] 23:29:00 Test Item Value Reference Range Interpretation Comments Bili Total (test code = Bili Total) 0.6 0.2-1.3 [facility] [id number] 23:29:00 Test Item Value Reference Range Interpretation Comments AGAP (test code = AGAP) 11.2 10.0-20.0 [facility] [employer] [id number] 23:29:00 Test Item Value Reference Range Interpretation Comments B/C Ratio (test code = B/C Ratio) 12 1 6-25 [facility] [id number] 23:29:00 Test Item Value Reference Range Interpretation Comments Globulin (test code = Globulin) 3.1 2.7-4.2 [facility] [id number] 23:29:00 Test Item Value Reference Range Interpretation Comments A/G Ratio (test code = A/G Ratio) 1.1 1 0.7-1.6 [facility] [id number] 23:29:00 Test Item Value Reference Range Interpretation Comments eGFR (test code = eGFR) 71 [facility] Lancast[id number] 23:29:00 Test Item Value Reference Range Interpretation Comments WBC (test code = WBC) 3.1 3.7-10.4 [facility] LancasterEwuijooTDSLPUGZYI5648-28-25 23:29:00 Test Item Value Reference Range Interpretation Comments RBC (test code = RBC) 3.42 4.20-5.40 [facility] CenterDqjiqamWQZCUEDZKS0737-61-49 23:29:00 Test Item Value Reference Range Interpretation Comments Hgb (test code = Hgb) 11.6 12.0-16.0 [facility] CenterRrwgkkbDVBYSISRVD8795-27-19 23:29:00 Test Item Value Reference Range Interpretation Comments Hct (test code = Hct) 35.3 36.0-48.0 [facility] Cent[id number] 23:29:00 Test Item Value Reference Range Interpretation Comments MCV (test code = MCV) 103.5 80.0-98.0 [place] 682882-07-26 23:29:00 Test Item Value Reference Range Interpretation Comments MCH (test code = MCH) 33.8 pg 27.0-31.0 [facility] CenterDtjqcmwCSXNCRPQVN7236-28-16 23:29:00 Test Item Value Reference Range Interpretation Comments MCHC (test code = MCHC) 32.7 32.0-36.0 [facility] C[id number] 23:29:00 Test Item Value Reference Range Interpretation Comments RDW (test code = RDW) 16.3 11.5-14.5 [facility] CenterNlmxqmjQUSYGITSKV8815-85-38 23:29:00 Test Item Value Reference Range Interpretation Comments Platelet (test code = Platelet) 135 133-450 [facility] CenterTkbgoomLJBUCYDDWB0769-31-32 23:29:00 Test Item Value Reference Range Interpretation Comments MPV (test code = MPV) 8.6 7.4-10.4 [place] 682882-07-26 23:29:00 Test Item Value Reference Range Interpretation Comments D-Dimer (test code = D-Dimer) 1.86 [place] 682882-07-26 23:29:00 Test Item Value Reference Range Interpretation Comments Segs (test code = Segs) 48.9 45.0-75.0 [place] 682882-07-26 23:29:00 Test Item Value Reference Range Interpretation Comments Lymphocytes (test code = Lymphocytes) 37.4 20.0-40.0 [place] 682882-07-26 23:29:00 Test Item Value Reference Range Interpretation Comments Monocytes (test code = Monocytes) 10.6 2.0-12.0 [place] 682882-07-26 23:29:00 Test Item Value Reference Range Interpretation Comments Eosinophils (test code = 2.5 See_Comment [A utomated message] The Eosinophils) system which ge nerated this result tra nsmitted reference range : <=4.0. The reference r denia was not used to int erpret this result as normal/abnormal . [facility] CenterJritvbdXFQCZAKOFM1517-89-03 23:29:00 Test Item Value Reference Range Interpretation Comments Basophils (test code = 0.6 See_Comment [Aut omated message] The Basophils) system which ge nerated this result tra nsmitted reference range : <=1.0. The reference r denia was not used to int erpret this result as normal/abnormal . [facility] CenterWbjiczhMVFJBQOZHJ1845-25-93 23:29:00 Test Item Value Reference Range Interpretation Comments Neutrophils # (test code = Neutrophils 1.5 1.5-8.1 #) [facility] CenterYvalgefMPDDIGTMIP1092-51-29 23:29:00 Test Item Value Reference Range Interpretation Comments Lymphocytes # (test code = Lymphocytes 1.1 1.0-5.5 #) [facility] [id number] 23:29:00 Test Item Value Reference Range Interpretation Comments Monocytes # (test code 0.3 See_Comment [Aut omated message] The = Monocytes #) system which generated this result tra nsmitted reference range : <=0.8. The reference r denia was not used to int erpret this result as normal/abnormal . [facility] CenterTpcmibvOZJZUWBSFE6285-00-01 23:29:00 Test Item Value Reference Range Interpretation Comments Eosinophils # (test code 0.1 See_Comment [A utomated message] The = Eosinophils #) system whic h generated this result tra nsmitted reference range : <=0.5. The reference r denia was not used to int erpret this result as normal/abnormal . [facility] CenterGjvgojgMQHUVZLFPI7778-95-87 23:29:00 Test Item Value Reference Range Interpretation Comments Macrocyte (test code = 1+ *ABN*(03/16/22 Macrocyte) 6:29 PM) [facility] CenterLFR Communications, Inc [id number] 23:29:00 Test Item Value Reference Range Interpretation Comments Total CK (test code = Total CK) 165 12-191 [facility] CenterLFR [facility], Inc [id number] 23:29:00 Test Item Value Reference Range Interpretation Comments HS Troponin I Baseline (test code = HS 4 Troponin I Baseline) [place] 773372-07-26 23:29:00 Test Item Value Reference Range Interpretation Comments Glucose Lvl (test code = Glucose Lvl) 105 70-99 [place] 773372-07-26 23:29:00 Test Item Value Reference Range Interpretation Comments BUN (test code = BUN) 11 7-22 [place] 773372-07-26 23:29:00 Test Item Value Reference Range Interpretation Comments Creatinine Lvl (test code = Creatinine 0.93 0.50-1.40 Lvl) [facility]2022-07-26 23:29:00 Test Item Value Reference Range Interpretation Comments Sodium Lvl (test code = Sodium Lvl) 139 135-145 [place] 773372-07-26 23:29:00 Test Item Value Reference Range Interpretation Comments Potassium Lvl (test code = Potassium 4.2 3.5-5.1 Lvl) [place] 773372-07-26 23:29:00 Test Item Value Reference Range Interpretation Comments Chloride Lvl (test code = Chloride Lvl) 107 95-109 [place] 773372-07-26 23:29:00 Test Item Value Reference Range Interpretation Comments CO2 (test code = CO2) 25 24-32 [place] 773372-07-26 23:29:00 Test Item Value Reference Range Interpretation Comments Calcium Lvl (test code = Calcium Lvl) 8.8 8.5-10.5 [place] 773372-07-26 23:29:00 Test Item Value Reference Range Interpretation Comments Total Protein (test code = Total 6.5 6.4-8.4 Protein) [place] 773372-07-26 23:29:00 Test Item Value Reference Range Interpretation Comments Albumin Lvl (test code = Albumin Lvl) 3.4 3.5-5.0 [place] 773372-07-26 23:29:00 Test Item Value Reference Range Interpretation Comments ALT (test code = ALT) 93 See_Comment [Auto mated message] The system which ge nerated this result transmit mau reference range : <=65. The reference range was not used to interpr et this result as elaine l/abnormal. [place] 773372-07-26 23:29:00 Test Item Value Reference Range Interpretation Comments AST (test code = AST) 84 See_Comment [Auto mated message] The system which ge nerated this result transmit mau reference range : <=37. The reference range was not used to interpr et this result as elaine l/abnormal. [place] 773372-07-26 23:29:00 Test Item Value Reference Range Interpretation Comments Alk Phos (test code = Alk Phos) 150 39-136 [place] 773372-07-26 23:29:00 Test Item Value Reference Range Interpretation Comments Bili Total (test code = Bili Total) 0.6 0.2-1.3 [place] [address]-07-26 23:29:00 Test Item Value Reference Range Interpretation Comments AGAP (test code = AGAP) 11.2 10.0-20.0 [place] 773372-07-26 23:29:00 Test Item Value Reference Range Interpretation Comments B/C Ratio (test code = B/C Ratio) 12 1 6-25 [place] [address]-07-26 23:29:00 Test Item Value Reference Range Interpretation Comments Globulin (test code = Globulin) 3.1 2.7-4.2 [place] 773372-07-26 23:29:00 Test Item Value Reference Range Interpretation Comments A/G Ratio (test code = A/G Ratio) 1.1 1 0.7-1.6 [place] 773372-07-26 23:29:00 Test Item Value Reference Range Interpretation Comments eGFR (test code = eGFR) 71 [place] 682882-07-26 23:29:00 Test Item Value Reference Range Interpretation Comments WBC (test code = WBC) 3.1 3.7-10.4 [place] 682882-07-26 23:29:00 Test Item Value Reference Range Interpretation Comments RBC (test code = RBC) 3.42 4.20-5.40 [place] [address]-07-26 23:29:00 Test Item Value Reference Range Interpretation Comments Hgb (test code = Hgb) 11.6 12.0-16.0 [place] 682882-07-26 23:29:00 Test Item Value Reference Range Interpretation Comments Hct (test code = Hct) 35.3 36.0-48.0 [place] 682882-07-26 23:29:00 Test Item Value Reference Range Interpretation Comments MCV (test code = MCV) 103.5 80.0-98.0 [place] 682882-07-26 23:29:00 Test Item Value Reference Range Interpretation Comments MCH (test code = MCH) 33.8 pg 27.0-31.0 [place] 682882-07-26 23:29:00 Test Item Value Reference Range Interpretation Comments MCHC (test code = MCHC) 32.7 32.0-36.0 [place] 682882-07-26 23:29:00 Test Item Value Reference Range Interpretation Comments RDW (test code = RDW) 16.3 11.5-14.5 [place] 682882-07-26 23:29:00 Test Item Value Reference Range Interpretation Comments Platelet (test code = Platelet) 135 133-450 [place] 682882-07-26 23:29:00 Test Item Value Reference Range Interpretation Comments MPV (test code = MPV) 8.6 7.4-10.4 [place] 682882-07-26 23:29:00 Test Item Value Reference Range Interpretation Comments D-Dimer (test code = D-Dimer) 1.86 [place] 682882-07-26 23:29:00 Test Item Value Reference Range Interpretation Comments Segs (test code = Segs) 48.9 45.0-75.0 [place] 682882-07-26 23:29:00 Test Item Value Reference Range Interpretation Comments Lymphocytes (test code = Lymphocytes) 37.4 20.0-40.0 [place] 682882-07-26 23:29:00 Test Item Value Reference Range Interpretation Comments Monocytes (test code = Monocytes) 10.6 2.0-12.0 [place] [address]-07-26 23:29:00 Test Item Value Reference Range Interpretation Comments Eosinophils (test code = 2.5 See_Comment [A utomated message] The Eosinophils) system which ge nerated this result tra nsmitted reference range : <=4.0. The reference r denia was not used to int erpret this result as normal/abnormal . [facility] LancasterGjhmztpHWJJOJVQFW4340-44-91 23:29:00 Test Item Value Reference Range Interpretation Comments Basophils (test code = 0.6 See_Comment [Aut omated message] The Basophils) system which ge nerated this result tra nsmitted reference range : <=1.0. The reference r denia was not used to int erpret this result as normal/abnormal . [facility] LancasterEtwtxzgYOTHGODYLR5642-29-83 23:29:00 Test Item Value Reference Range Interpretation Comments Neutrophils # (test code = Neutrophils 1.5 1.5-8.1 #) [facility] CenterGhrampaXWVBYNAOZU1772-79-06 23:29:00 Test Item Value Reference Range Interpretation Comments Lymphocytes # (test code = Lymphocytes 1.1 1.0-5.5 #) [facility] CenterEnwskbxQDBRYINRYF0295-99-67 23:29:00 Test Item Value Reference Range Interpretation Comments Monocytes # (test code 0.3 See_Comment [Aut omated message] The = Monocytes #) system which generated this result tra nsmitted reference range : <=0.8. The reference r denia was not used to int erpret this result as normal/abnormal . [facility] LancasterKvroirzGUPXHNPIYH9698-69-18 23:29:00 Test Item Value Reference Range Interpretation Comments Eosinophils # (test code 0.1 See_Comment [A utomated message] The = Eosinophils #) system whic h generated this result tra nsmitted reference range : <=0.5. The reference r denia was not used to int erpret this result as normal/abnormal . [facility] LancasterDmeftlvYOTVELQALV7184-89-14 23:29:00 Test Item Value Reference Range Interpretation Comments Macrocyte (test code = 1+ *ABN*(03/16/22 Macrocyte) 6:29 PM) [facility] LancasterUpptalk [id number] 23:29:00 Test Item Value Reference Range Interpretation Comments Total CK (test code = Total CK) 165 12-191 [facility] LancasterU[facility] [id number] 23:29:00 Test Item Value Reference Range Interpretation Comments HS Troponin I Baseline (test code = HS 4 Troponin I Baseline) [facility] [employer]2022-07-26 23:29:00 Test Item Value Reference Range Interpretation Comments Glucose Lvl (test code = Glucose Lvl) 105 70-99 [facility] [employer]2022-07-26 23:29:00 Test Item Value Reference Range Interpretation Comments BUN (test code = BUN) 11 03-12 [facility] [employer] [id number] 23:29:00 Test Item Value Reference Range Interpretation Comments Creatinine Lvl (test code = Creatinine 0.93 0.50-1.40 Lvl) [facility] [employer] [id number] 23:29:00 Test Item Value Reference Range Interpretation Comments Sodium Lvl (test code = Sodium Lvl) 139 135-145 [facility] [employer] [id number] 23:29:00 Test Item Value Reference Range Interpretation Comments Total CK (test code = Total CK) 165 12-191 [facility] [employer] [id number] 23:29:00 Test Item Value Reference Range Interpretation Comments Potassium Lvl (test code = Potassium 4.2 3.5-5.1 Lvl) [facility] Lancaster[facility]20[facility] 23:29:00 Test Item Value Reference Range Interpretation Comments HS Troponin I Baseline (test code = HS 4 Troponin I Baseline) [facility] [employer] [id number] 23:29:00 Test Item Value Reference Range Interpretation Comments Glucose Lvl (test code = Glucose Lvl) 105 70-99 [facility] [employer] [id number] 23:29:00 Test Item Value Reference Range Interpretation Comments BUN (test code = BUN) 11 03-12 [facility] [employer] [id number] 23:29:00 Test Item Value Reference Range Interpretation Comments Creatinine Lvl (test code = Creatinine 0.93 0.50-1.40 Lvl) [facility] [employer] [id number] 23:29:00 Test Item Value Reference Range Interpretation Comments Sodium Lvl (test code = Sodium Lvl) 139 135-145 [facility] [employer] [id number] 23:29:00 Test Item Value Reference Range Interpretation Comments Potassium Lvl (test code = Potassium 4.2 3.5-5.1 Lvl) [facility] [employer]2022-07-26 23:29:00 Test Item Value Reference Range Interpretation Comments Chloride Lvl (test code = Chloride Lvl) 107 95-109 [facility] [employer]2022-07-26 23:29:00 Test Item Value Reference Range Interpretation Comments CO2 (test code = CO2) 24-32 [facility] LancasterImmunovative TherapiesANG[place] [id number] 23:29:00 Test Item Value Reference Range Interpretation Comments Calcium Lvl (test code = Calcium Lvl) 8.8 8.5-10.5 [place] 773372-07-26 23:29:00 Test Item Value Reference Range Interpretation Comments Total Protein (test code = Total 6.5 6.4-8.4 Protein) [place] 773372-07-26 23:29:00 Test Item Value Reference Range Interpretation Comments Chloride Lvl (test code = Chloride Lvl) 107 95-109 [place] [address]-07-26 23:29:00 Test Item Value Reference Range Interpretation Comments Albumin Lvl (test code = Albumin Lvl) 3.4 3.5-5.0 [facility] [id number] 23:29:00 Test Item Value Reference Range Interpretation Comments ALT (test code = ALT) 93 See_Comment [Auto mated message] The system which ge nerated this result transmit mau reference range : <=65. The reference range was not used to interpr et this result as elaine l/abnormal. [facility] [id number] 23:29:00 Test Item Value Reference Range Interpretation Comments AST (test code = AST) 84 See_Comment [Auto mated message] The system which ge nerated this result transmit mau reference range : <=37. The reference range was not used to interpr et this result as elaine l/abnormal. [facility] [id number] 23:29:00 Test Item Value Reference Range Interpretation Comments Alk Phos (test code = Alk Phos) 150 39-136 [facility] [id number] 23:29:00 Test Item Value Reference Range Interpretation Comments Bili Total (test code = Bili Total) 0.6 0.2-1.3 [place] 773372-07-26 23:29:00 Test Item Value Reference Range Interpretation Comments AGAP (test code = AGAP) 11.2 10.0-20.0 [facility] Center[facility] [id number] 23:29:00 Test Item Value Reference Range Interpretation Comments B/C Ratio (test code = B/C Ratio) 12 1 6-25 [facility] [id number] 23:29:00 Test Item Value Reference Range Interpretation Comments Globulin (test code = Globulin) 3.1 2.7-4.2 [place] 773372-07-26 23:29:00 Test Item Value Reference Range Interpretation Comments A/G Ratio (test code = A/G Ratio) 1.1 1 0.7-1.6 [place] 773372-07-26 23:29:00 Test Item Value Reference Range Interpretation Comments eGFR (test code = eGFR) 71 [facility]2022-07-26 23:29:00 Test Item Value Reference Range Interpretation Comments CO2 (test code = CO2) 25 24-32 [place] 682882-07-26 23:29:00 Test Item Value Reference Range Interpretation Comments WBC (test code = WBC) 3.1 3.7-10.4 [place] 682882-07-26 23:29:00 Test Item Value Reference Range Interpretation Comments RBC (test code = RBC) 3.42 4.20-5.40 [place] 682882-07-26 23:29:00 Test Item Value Reference Range Interpretation Comments Hgb (test code = Hgb) 11.6 12.0-16.0 [place] 682882-07-26 23:29:00 Test Item Value Reference Range Interpretation Comments Hct (test code = Hct) 35.3 36.0-48.0 [facility] CenterZdtgwjrRJTBYUJFBW3456-69-07 23:29:00 Test Item Value Reference Range Interpretation Comments MCV (test code = MCV) 103.5 80.0-98.0 [place] 682882-07-26 23:29:00 Test Item Value Reference Range Interpretation Comments MCH (test code = MCH) 33.8 pg 27.0-31.0 [place] 682882-07-26 23:29:00 Test Item Value Reference Range Interpretation Comments MCHC (test code = MCHC) 32.7 32.0-36.0 [place] 682882-07-26 23:29:00 Test Item Value Reference Range Interpretation Comments RDW (test code = RDW) 16.3 11.5-14.5 [place] 682882-07-26 23:29:00 Test Item Value Reference Range Interpretation Comments Platelet (test code = Platelet) 135 133-450 [place] 682882-07-26 23:29:00 Test Item Value Reference Range Interpretation Comments MPV (test code = MPV) 8.6 7.4-10.4 [facility]2022-07-26 23:29:00 Test Item Value Reference Range Interpretation Comments Calcium Lvl (test code = Calcium Lvl) 8.8 8.5-10.5 [place] 682882-07-26 23:29:00 Test Item Value Reference Range Interpretation Comments D-Dimer (test code = D-Dimer) 1.86 [place] 682882-07-26 23:29:00 Test Item Value Reference Range Interpretation Comments Segs (test code = Segs) 48.9 45.0-75.0 [place] [address]-07-26 23:29:00 Test Item Value Reference Range Interpretation Comments Lymphocytes (test code = Lymphocytes) 37.4 20.0-40.0 [place] 682882-07-26 23:29:00 Test Item Value Reference Range Interpretation Comments Monocytes (test code = Monocytes) 10.6 2.0-12.0 [place] 682882-07-26 23:29:00 Test Item Value Reference Range Interpretation Comments Eosinophils (test code = 2.5 See_Comment [A utomated message] The Eosinophils) system which ge nerated this result tra nsmitted reference range : <=4.0. The reference r denia was not used to int erpret this result as normal/abnormal . [facility] CenterIlokvjaKKCBCSAXEA5909-38-01 23:29:00 Test Item Value Reference Range Interpretation Comments Basophils (test code = 0.6 See_Comment [Aut omated message] The Basophils) system which ge nerated this result tra nsmitted reference range : <=1.0. The reference r denia was not used to int erpret this result as normal/abnormal . [place] 682882-07-26 23:29:00 Test Item Value Reference Range Interpretation Comments Neutrophils # (test code = Neutrophils 1.5 1.5-8.1 #) [place] 682882-07-26 23:29:00 Test Item Value Reference Range Interpretation Comments Lymphocytes # (test code = Lymphocytes 1.1 1.0-5.5 #) [place] 682882-07-26 23:29:00 Test Item Value Reference Range Interpretation Comments Monocytes # (test code 0.3 See_Comment [Aut omated message] The = Monocytes #) system which generated this result tra nsmitted reference range : <=0.8. The reference r denia was not used to int erpret this result as normal/abnormal . [place] 682882-07-26 23:29:00 Test Item Value Reference Range Interpretation Comments Eosinophils # (test code 0.1 See_Comment [A utomated message] The = Eosinophils #) system whic h generated this result tra nsmitted reference range : <=0.5. The reference r denia was not used to int erpret this result as normal/abnormal . [facility] [id number] 23:29:00 Test Item Value Reference Range Interpretation Comments Total Protein (test code = Total 6.5 6.4-8.4 Protein) [address]07-26 23:29:00 Test Item Value Reference Range Interpretation Comments Macrocyte (test code = 1+ *ABN*(03/16/22 Macrocyte) 6:29 PM) [facility] [id number] 23:29:00 Test Item Value Reference Range Interpretation Comments Albumin Lvl (test code = Albumin Lvl) 3.4 3.5-5.0 [facility] [id number] 23:29:00 Test Item Value Reference Range Interpretation Comments ALT (test code = ALT) 93 See_Comment [Auto mated message] The system which ge nerated this result transmit mau reference range : <=65. The reference range was not used to interpr et this result as elaine l/abnormal. [facility] [id number] 23:29:00 Test Item Value Reference Range Interpretation Comments AST (test code = AST) 84 See_Comment [Auto mated message] The system which ge nerated this result transmit mau reference range : <=37. The reference range was not used to interpr et this result as elaine l/abnormal. [facility] [id number] 23:29:00 Test Item Value Reference Range Interpretation Comments Alk Phos (test code = Alk Phos) 150 39-136 [facility] [id number] 23:29:00 Test Item Value Reference Range Interpretation Comments Bili Total (test code = Bili Total) 0.6 0.2-1.3 [facility] [employer] [id number] 23:29:00 Test Item Value Reference Range Interpretation Comments AGAP (test code = AGAP) 11.2 10.0-20.0 [facility] [employer] [id number] 23:29:00 Test Item Value Reference Range Interpretation Comments B/C Ratio (test code = B/C Ratio) 12 1 6-25 [facility] [employer] [id number] 23:29:00 Test Item Value Reference Range Interpretation Comments Globulin (test code = Globulin) 3.1 2.7-4.2 [facility] [employer] [id number] 23:29:00 Test Item Value Reference Range Interpretation Comments Total CK (test code = Total CK) 165 12-191 [facility] [employer] [id number] 23:29:00 Test Item Value Reference Range Interpretation Comments HS Troponin I Baseline (test code = HS 4 Troponin I Baseline) [facility] [employer] [id number] 23:29:00 Test Item Value Reference Range Interpretation Comments Glucose Lvl (test code = Glucose Lvl) 105 70-99 [facility] [employer]2022-07-26 23:29:00 Test Item Value Reference Range Interpretation Comments BUN (test code = BUN) 11 7-22 [facility] [employer] [id number] 23:29:00 Test Item Value Reference Range Interpretation Comments Creatinine Lvl (test code = Creatinine 0.93 0.50-1.40 Lvl) [facility] [employer]2022-07-26 23:29:00 Test Item Value Reference Range Interpretation Comments Sodium Lvl (test code = Sodium Lvl) 139 135-145 [facility] [employer]2022-07-26 23:29:00 Test Item Value Reference Range Interpretation Comments Potassium Lvl (test code = Potassium 4.2 3.5-5.1 Lvl) [facility] [employer]2022-07-26 23:29:00 Test Item Value Reference Range Interpretation Comments Chloride Lvl (test code = Chloride Lvl) 107 95-109 [facility] [employer]2022-07-26 23:29:00 Test Item Value Reference Range Interpretation Comments CO2 (test code = CO2) 25 24-32 [facility] [employer]2022-07-26 23:29:00 Test Item Value Reference Range Interpretation Comments Calcium Lvl (test code = Calcium Lvl) 8.8 8.5-10.5 [place] 773372-07-26 23:29:00 Test Item Value Reference Range Interpretation Comments A/G Ratio (test code = A/G Ratio) 1.1 1 0.7-1.6 [place] [address]-07-26 23:29:00 Test Item Value Reference Range Interpretation Comments Total Protein (test code = Total 6.5 6.4-8.4 Protein) [place] [address]-07-26 23:29:00 Test Item Value Reference Range Interpretation Comments Albumin Lvl (test code = Albumin Lvl) 3.4 3.5-5.0 [facility] [id number] 23:29:00 Test Item Value Reference Range Interpretation Comments ALT (test code = ALT) 93 See_Comment [Auto mated message] The system which ge nerated this result transmit mau reference range : <=65. The reference range was not used to interpr et this result as elaine l/abnormal. [facility] [id number] 23:29:00 Test Item Value Reference Range Interpretation Comments AST (test code = AST) 84 See_Comment [Auto mated message] The system which ge nerated this result transmit mau reference range : <=37. The reference range was not used to interpr et this result as elaine l/abnormal. [facility] [id number] 23:29:00 Test Item Value Reference Range Interpretation Comments Alk Phos (test code = Alk Phos) 150 39-136 [facility] [id number] 23:29:00 Test Item Value Reference Range Interpretation Comments Bili Total (test code = Bili Total) 0.6 0.2-1.3 [facility] [id number] 23:29:00 Test Item Value Reference Range Interpretation Comments AGAP (test code = AGAP) 11.2 10.0-20.0 [facility] [id number] 23:29:00 Test Item Value Reference Range Interpretation Comments B/C Ratio (test code = B/C Ratio) 12 1 6-25 [facility] [id number] 23:29:00 Test Item Value Reference Range Interpretation Comments Globulin (test code = Globulin) 3.1 2.7-4.2 [facility] [id number] 23:29:00 Test Item Value Reference Range Interpretation Comments A/G Ratio (test code = A/G Ratio) 1.1 1 0.7-1.6 [facility] [id number] 23:29:00 Test Item Value Reference Range Interpretation Comments eGFR (test code = eGFR) 71 [facility] [id number] 23:29:00 Test Item Value Reference Range Interpretation Comments eGFR (test code = eGFR) 71 [facility] CenterBibyjxjNFTUNDDJGV8535-40-46 23:29:00 Test Item Value Reference Range Interpretation Comments WBC (test code = WBC) 3.1 3.7-10.4 [facility] [id number] 23:29:00 Test Item Value Reference Range Interpretation Comments RBC (test code = RBC) 3.42 4.20-5.40 [facility] CenterKyawvqoPQSTEZAOKD1180-50-26 23:29:00 Test Item Value Reference Range Interpretation Comments Hgb (test code = Hgb) 11.6 12.0-16.0 [facility] CenterXonemvfJOTEOPGTNZ6963-79-70 23:29:00 Test Item Value Reference Range Interpretation Comments Hct (test code = Hct) 35.3 36.0-48.0 [facility] CenterDrugpcxMKILTLMPFI4879-69-74 23:29:00 Test Item Value Reference Range Interpretation Comments MCV (test code = MCV) 103.5 80.0-98.0 [facility] [id number] 23:29:00 Test Item Value Reference Range Interpretation Comments MCH (test code = MCH) 33.8 pg 27.0-31.0 [facility] [id number] 23:29:00 Test Item Value Reference Range Interpretation Comments MCHC (test code = MCHC) 32.7 32.0-36.0 [facility] CenterIhcaiitQCCJTFQCPS7122-31-58 23:29:00 Test Item Value Reference Range Interpretation Comments RDW (test code = RDW) 16.3 11.5-14.5 [facility] CenterIppnaliCLBWQWYKTP8470-85-23 23:29:00 Test Item Value Reference Range Interpretation Comments Platelet (test code = Platelet) 135 133-450 [place] [address]-07-26 23:29:00 Test Item Value Reference Range Interpretation Comments WBC (test code = WBC) 3.1 3.7-10.4 [place] [address]-07-26 23:29:00 Test Item Value Reference Range Interpretation Comments MPV (test code = MPV) 8.6 7.4-10.4 [place] [address]-07-26 23:29:00 Test Item Value Reference Range Interpretation Comments D-Dimer (test code = D-Dimer) 1.86 [place] [address]-07-26 23:29:00 Test Item Value Reference Range Interpretation Comments Segs (test code = Segs) 48.9 45.0-75.0 [place] [address]-07-26 23:29:00 Test Item Value Reference Range Interpretation Comments Lymphocytes (test code = Lymphocytes) 37.4 20.0-40.0 [place] [address]-07-26 23:29:00 Test Item Value Reference Range Interpretation Comments Monocytes (test code = Monocytes) 10.6 2.0-12.0 [place] [address]-07-26 23:29:00 Test Item Value Reference Range Interpretation Comments Eosinophils (test code = 2.5 See_Comment [A utomated message] The Eosinophils) system which ge nerated this result tra nsmitted reference range : <=4.0. The reference r denia was not used to int erpret this result as normal/abnormal . [place] 682882-07-26 23:29:00 Test Item Value Reference Range Interpretation Comments Basophils (test code = 0.6 See_Comment [Aut omated message] The Basophils) system which ge nerated this result tra nsmitted reference range : <=1.0. The reference r denia was not used to int erpret this result as normal/abnormal . [place] [address]-07-26 23:29:00 Test Item Value Reference Range Interpretation Comments Neutrophils # (test code = Neutrophils 1.5 1.5-8.1 #) [place] [address]-07-26 23:29:00 Test Item Value Reference Range Interpretation Comments Lymphocytes # (test code = Lymphocytes 1.1 1.0-5.5 #) [place] [address]-07-26 23:29:00 Test Item Value Reference Range Interpretation Comments Monocytes # (test code 0.3 See_Comment [Aut omated message] The = Monocytes #) system which generated this result tra nsmitted reference range : <=0.8. The reference r denia was not used to int erpret this result as normal/abnormal . [facility] CenterObvtifgIPALSEWOWP7741-13-76 23:29:00 Test Item Value Reference Range Interpretation Comments RBC (test code = RBC) 3.42 4.20-5.40 [place] 682882-07-26 23:29:00 Test Item Value Reference Range Interpretation Comments Eosinophils # (test code 0.1 See_Comment [A utomated message] The = Eosinophils #) system whic h generated this result tra nsmitted reference range : <=0.5. The reference r denia was not used to int erpret this result as normal/abnormal . [facility] CenterIdacsrxIZQBFUGQRG4542-99-28 23:29:00 Test Item Value Reference Range Interpretation Comments Macrocyte (test code = 1+ *ABN*(03/16/22 Macrocyte) 6:29 PM) [facility] CenterTraiuplBYPQLIPFJC3917-49-08 23:29:00 Test Item Value Reference Range Interpretation Comments Hgb (test code = Hgb) 11.6 12.0-16.0 [facility] CenterNcsonlgHKKCDEYIRC7855-08-23 23:29:00 Test Item Value Reference Range Interpretation Comments Hct (test code = Hct) 35.3 36.0-48.0 [facility] CenterQpwsorrCLTAAUPFSM7227-00-41 23:29:00 Test Item Value Reference Range Interpretation Comments MCV (test code = MCV) 103.5 80.0-98.0 [place] 682882-07-26 23:29:00 Test Item Value Reference Range Interpretation Comments MCH (test code = MCH) 33.8 pg 27.0-31.0 [place] 682882-07-26 23:29:00 Test Item Value Reference Range Interpretation Comments MCHC (test code = MCHC) 32.7 32.0-36.0 [place] 682882-07-26 23:29:00 Test Item Value Reference Range Interpretation Comments RDW (test code = RDW) 16.3 11.5-14.5 [place] 682882-07-26 23:29:00 Test Item Value Reference Range Interpretation Comments Platelet (test code = Platelet) 135 133-450 [facility] LancasterYuabityTPNBNNDOSS8617-19-45 23:29:00 Test Item Value Reference Range Interpretation Comments MPV (test code = MPV) 8.6 7.4-10.4 [facility] [id number] 23:29:00 Test Item Value Reference Range Interpretation Comments Total CK (test code = Total CK) 165 12-191 [facility] CenterGLOLIV[facility]ST[facility] [id number] 23:29:00 Test Item Value Reference Range Interpretation Comments HS Troponin I Baseline (test code = HS 4 Troponin I Baseline) [facility] [id number] 23:29:00 Test Item Value Reference Range Interpretation Comments Glucose Lvl (test code = Glucose Lvl) 105 70-99 [facility] [id number] 23:29:00 Test Item Value Reference Range Interpretation Comments BUN (test code = BUN) 11 7-22 [facility] [id number] 23:29:00 Test Item Value Reference Range Interpretation Comments Creatinine Lvl (test code = Creatinine 0.93 0.50-1.40 Lvl) [facility] [id number] 23:29:00 Test Item Value Reference Range Interpretation Comments Sodium Lvl (test code = Sodium Lvl) 139 135-145 [facility] [id number] 23:29:00 Test Item Value Reference Range Interpretation Comments Potassium Lvl (test code = Potassium 4.2 3.5-5.1 Lvl) [facility] [id number] 23:29:00 Test Item Value Reference Range Interpretation Comments Chloride Lvl (test code = Chloride Lvl) 107 95-109 [facility] [id number] 23:29:00 Test Item Value Reference Range Interpretation Comments CO2 (test code = CO2) 25 24-32 [facility] LancasterTegpajtFWRXJKEVHP6499-35-92 23:29:00 Test Item Value Reference Range Interpretation Comments D-Dimer (test code = D-Dimer) 1.86 [facility] [id number] 23:29:00 Test Item Value Reference Range Interpretation Comments Calcium Lvl (test code = Calcium Lvl) 8.8 8.5-10.5 [facility] [id number] 23:29:00 Test Item Value Reference Range Interpretation Comments Total Protein (test code = Total 6.5 6.4-8.4 Protein) [place] 773372-07-26 23:29:00 Test Item Value Reference Range Interpretation Comments Albumin Lvl (test code = Albumin Lvl) 3.4 3.5-5.0 [place] 773372-07-26 23:29:00 Test Item Value Reference Range Interpretation Comments ALT (test code = ALT) 93 See_Comment [Auto mated message] The system which ge nerated this result transmit mau reference range : <=65. The reference range was not used to interpr et this result as elaine l/abnormal. [place] 773372-07-26 23:29:00 Test Item Value Reference Range Interpretation Comments AST (test code = AST) 84 See_Comment [Auto mated message] The system which ge nerated this result transmit mau reference range : <=37. The reference range was not used to interpr et this result as elaine l/abnormal. [place] 773372-07-26 23:29:00 Test Item Value Reference Range Interpretation Comments Alk Phos (test code = Alk Phos) 150 39-136 [place] 773372-07-26 23:29:00 Test Item Value Reference Range Interpretation Comments Bili Total (test code = Bili Total) 0.6 0.2-1.3 [place] 773372-07-26 23:29:00 Test Item Value Reference Range Interpretation Comments AGAP (test code = AGAP) 11.2 10.0-20.0 [place] 773372-07-26 23:29:00 Test Item Value Reference Range Interpretation Comments B/C Ratio (test code = B/C Ratio) 12 1 6-25 [place] [address]-07-26 23:29:00 Test Item Value Reference Range Interpretation Comments Globulin (test code = Globulin) 3.1 2.7-4.2 [facility] CenterSsnafdfVDCDUQSHSK6422-61-45 23:29:00 Test Item Value Reference Range Interpretation Comments Segs (test code = Segs) 48.9 45.0-75.0 [place] 773372-07-26 23:29:00 Test Item Value Reference Range Interpretation Comments A/G Ratio (test code = A/G Ratio) 1.1 1 0.7-1.6 [facility]2022-07-26 23:29:00 Test Item Value Reference Range Interpretation Comments eGFR (test code = eGFR) 71 [facility] CenterEmcexrpGVAWWBSWWW4077-56-70 23:29:00 Test Item Value Reference Range Interpretation Comments WBC (test code = WBC) 3.1 3.7-10.4 [place] 682882-07-26 23:29:00 Test Item Value Reference Range Interpretation Comments RBC (test code = RBC) 3.42 4.20-5.40 [place] 682882-07-26 23:29:00 Test Item Value Reference Range Interpretation Comments Hgb (test code = Hgb) 11.6 12.0-16.0 [place] 682882-07-26 23:29:00 Test Item Value Reference Range Interpretation Comments Hct (test code = Hct) 35.3 36.0-48.0 [place] 682882-07-26 23:29:00 Test Item Value Reference Range Interpretation Comments MCV (test code = MCV) 103.5 80.0-98.0 [place] 682882-07-26 23:29:00 Test Item Value Reference Range Interpretation Comments MCH (test code = MCH) 33.8 pg 27.0-31.0 [facility] CenterSaahohvUIROVRZQVR7940-94-13 23:29:00 Test Item Value Reference Range Interpretation Comments MCHC (test code = MCHC) 32.7 32.0-36.0 [place] 682882-07-26 23:29:00 Test Item Value Reference Range Interpretation Comments RDW (test code = RDW) 16.3 11.5-14.5 [place] 682882-07-26 23:29:00 Test Item Value Reference Range Interpretation Comments Lymphocytes (test code = Lymphocytes) 37.4 20.0-40.0 [place] 682882-07-26 23:29:00 Test Item Value Reference Range Interpretation Comments Platelet (test code = Platelet) 135 133-450 [place] 682882-07-26 23:29:00 Test Item Value Reference Range Interpretation Comments MPV (test code = MPV) 8.6 7.4-10.4 [place] 682882-07-26 23:29:00 Test Item Value Reference Range Interpretation Comments D-Dimer (test code = D-Dimer) 1.86 [place] [address]-07-26 23:29:00 Test Item Value Reference Range Interpretation Comments Segs (test code = Segs) 48.9 45.0-75.0 [place] [address]-07-26 23:29:00 Test Item Value Reference Range Interpretation Comments Lymphocytes (test code = Lymphocytes) 37.4 20.0-40.0 [place] [address]-07-26 23:29:00 Test Item Value Reference Range Interpretation Comments Monocytes (test code = Monocytes) 10.6 2.0-12.0 [place] [address]-07-26 23:29:00 Test Item Value Reference Range Interpretation Comments Eosinophils (test code = 2.5 See_Comment [A utomated message] The Eosinophils) system which ge nerated this result tra nsmitted reference range : <=4.0. The reference r denia was not used to int erpret this result as normal/abnormal . [place] 682882-07-26 23:29:00 Test Item Value Reference Range Interpretation Comments Basophils (test code = 0.6 See_Comment [Aut omated message] The Basophils) system which ge nerated this result tra nsmitted reference range : <=1.0. The reference r denia was not used to int erpret this result as normal/abnormal . [place] 682882-07-26 23:29:00 Test Item Value Reference Range Interpretation Comments Neutrophils # (test code = Neutrophils 1.5 1.5-8.1 #) [place] 682882-07-26 23:29:00 Test Item Value Reference Range Interpretation Comments Lymphocytes # (test code = Lymphocytes 1.1 1.0-5.5 #) [place] [address]-07-26 23:29:00 Test Item Value Reference Range Interpretation Comments Monocytes (test code = Monocytes) 10.6 2.0-12.0 [place] [address]-07-26 23:29:00 Test Item Value Reference Range Interpretation Comments Monocytes # (test code 0.3 See_Comment [Aut omated message] The = Monocytes #) system which generated this result tra nsmitted reference range : <=0.8. The reference r denia was not used to int erpret this result as normal/abnormal . [facility] CenterKlwhvizWRSMHABEXU8911-01-92 23:29:00 Test Item Value Reference Range Interpretation Comments Eosinophils # (test code 0.1 See_Comment [A utomated message] The = Eosinophils #) system whic h generated this result tra nsmitted reference range : <=0.5. The reference r denia was not used to int erpret this result as normal/abnormal . [facility] CenterAspnyycFBKXIAXEKE3804-09-97 23:29:00 Test Item Value Reference Range Interpretation Comments Macrocyte (test code = 1+ *ABN*(03/16/22 Macrocyte) 6:29 PM) [facility] CenterDttvyuuCMQUFFPHNZ5733-66-00 23:29:00 Test Item Value Reference Range Interpretation Comments Eosinophils (test code = 2.5 See_Comment [A utomated message] The Eosinophils) system which ge nerated this result tra nsmitted reference range : <=4.0. The reference r denia was not used to int erpret this result as normal/abnormal . [facility] CenterLpnpbjdZGIKLCMOHH2305-86-73 23:29:00 Test Item Value Reference Range Interpretation Comments Basophils (test code = 0.6 See_Comment [Aut omated message] The Basophils) system which ge nerated this result tra nsmitted reference range : <=1.0. The reference r denia was not used to int erpret this result as normal/abnormal . [facility] CenterFjovfmgWZBSIQGBHZ9169-41-50 23:29:00 Test Item Value Reference Range Interpretation Comments Neutrophils # (test code = Neutrophils 1.5 1.5-8.1 #) [facility] CenterLxxlgwxOAWCBNFSWE9789-78-29 23:29:00 Test Item Value Reference Range Interpretation Comments Lymphocytes # (test code = Lymphocytes 1.1 1.0-5.5 #) [place] 682882-07-26 23:29:00 Test Item Value Reference Range Interpretation Comments Monocytes # (test code 0.3 See_Comment [Aut omated message] The = Monocytes #) system which generated this result tra nsmitted reference range : <=0.8. The reference r denia was not used to int erpret this result as normal/abnormal . [facility] CenterBkcksgiTNVTFLEINX8626-91-72 23:29:00 Test Item Value Reference Range Interpretation Comments Eosinophils # (test code 0.1 See_Comment [A utomated message] The = Eosinophils #) system whic h generated this result tra nsmitted reference range : <=0.5. The reference r denia was not used to int erpret this result as normal/abnormal . [facility] CenterQekyobsHDNIKFXLFV3494-57-73 23:29:00 Test Item Value Reference Range Interpretation Comments Macrocyte (test code = 1+ *ABN*(03/16/22 Macrocyte) 6:29 PM) [facility] [id number] 23:29:00 Test Item Value Reference Range Interpretation Comments Total CK (test code = Total CK) 165 12-191 [facility]GLOL[facility] [id number] 23:29:00 Test Item Value Reference Range Interpretation Comments HS Troponin I Baseline (test code = HS 4 Troponin I Baseline) [facility] [id number] 23:29:00 Test Item Value Reference Range Interpretation Comments Glucose Lvl (test code = Glucose Lvl) 105 70-99 [facility] [id number] 23:29:00 Test Item Value Reference Range Interpretation Comments BUN (test code = BUN) 11 03-12 [facility] [id number] 23:29:00 Test Item Value Reference Range Interpretation Comments Creatinine Lvl (test code = Creatinine 0.93 0.50-1.40 Lvl) [facility] [id number] 23:29:00 Test Item Value Reference Range Interpretation Comments Sodium Lvl (test code = Sodium Lvl) 139 135-145 [facility] [id number] 23:29:00 Test Item Value Reference Range Interpretation Comments Potassium Lvl (test code = Potassium 4.2 3.5-5.1 Lvl) [facility] [id number] 23:29:00 Test Item Value Reference Range Interpretation Comments Chloride Lvl (test code = Chloride Lvl) 107 95-109 [facility] [id number] 23:29:00 Test Item Value Reference Range Interpretation Comments CO2 (test code = CO2) 25 24-32 [facility] [id number] 23:29:00 Test Item Value Reference Range Interpretation Comments Calcium Lvl (test code = Calcium Lvl) 8.8 8.5-10.5 [facility] [id number] 23:29:00 Test Item Value Reference Range Interpretation Comments Total Protein (test code = Total 6.5 6.4-8.4 Protein) [place] [address]-07-26 23:29:00 Test Item Value Reference Range Interpretation Comments Albumin Lvl (test code = Albumin Lvl) 3.4 3.5-5.0 [facility] [id number] 23:29:00 Test Item Value Reference Range Interpretation Comments ALT (test code = ALT) 93 See_Comment [Auto mated message] The system which ge nerated this result transmit mau reference range : <=65. The reference range was not used to interpr et this result as elaine l/abnormal. [facility] [id number] 23:29:00 Test Item Value Reference Range Interpretation Comments AST (test code = AST) 84 See_Comment [Auto mated message] The system which ge nerated this result transmit mau reference range : <=37. The reference range was not used to interpr et this result as elaine l/abnormal. [facility] [id number] 23:29:00 Test Item Value Reference Range Interpretation Comments Alk Phos (test code = Alk Phos) 150 39-136 [facility] [id number] 23:29:00 Test Item Value Reference Range Interpretation Comments Bili Total (test code = Bili Total) 0.6 0.2-1.3 [facility] CenterC[facility] [id number] 23:29:00 Test Item Value Reference Range Interpretation Comments AGAP (test code = AGAP) 11.2 10.0-20.0 [facility] [id number] 23:29:00 Test Item Value Reference Range Interpretation Comments B/C Ratio (test code = B/C Ratio) 12 1 6-25 [facility] [id number] 23:29:00 Test Item Value Reference Range Interpretation Comments Globulin (test code = Globulin) 3.1 2.7-4.2 [facility] [id number] 23:29:00 Test Item Value Reference Range Interpretation Comments A/G Ratio (test code = A/G Ratio) 1.1 1 0.7-1.6 [facility] [id number] 23:29:00 Test Item Value Reference Range Interpretation Comments eGFR (test code = eGFR) 71 [facility]LlohpvfQDSYQFGZXA5878-05-22 23:29:00 Test Item Value Reference Range Interpretation Comments WBC (test code = WBC) 3.1 3.7-10.4 [place] 682882-07-26 23:29:00 Test Item Value Reference Range Interpretation Comments RBC (test code = RBC) 3.42 4.20-5.40 [place] [address]-07-26 23:29:00 Test Item Value Reference Range Interpretation Comments Hgb (test code = Hgb) 11.6 12.0-16.0 [place] [address]-07-26 23:29:00 Test Item Value Reference Range Interpretation Comments Hct (test code = Hct) 35.3 36.0-48.0 [place] [address]-07-26 23:29:00 Test Item Value Reference Range Interpretation Comments MCV (test code = MCV) 103.5 80.0-98.0 [place] [address]-07-26 23:29:00 Test Item Value Reference Range Interpretation Comments MCH (test code = MCH) 33.8 pg 27.0-31.0 [facility] CenterBfvdhqgAACYTQBOTC0254-24-45 23:29:00 Test Item Value Reference Range Interpretation Comments MCHC (test code = MCHC) 32.7 32.0-36.0 [place] 682882-07-26 23:29:00 Test Item Value Reference Range Interpretation Comments RDW (test code = RDW) 16.3 11.5-14.5 [place] 682882-07-26 23:29:00 Test Item Value Reference Range Interpretation Comments Platelet (test code = Platelet) 135 133-450 [place] 682882-07-26 23:29:00 Test Item Value Reference Range Interpretation Comments MPV (test code = MPV) 8.6 7.4-10.4 [place] [address]-07-26 23:29:00 Test Item Value Reference Range Interpretation Comments D-Dimer (test code = D-Dimer) 1.86 [place] 682882-07-26 23:29:00 Test Item Value Reference Range Interpretation Comments Segs (test code = Segs) 48.9 45.0-75.0 [place] 682882-07-26 23:29:00 Test Item Value Reference Range Interpretation Comments Lymphocytes (test code = Lymphocytes) 37.4 20.0-40.0 [place] 682882-07-26 23:29:00 Test Item Value Reference Range Interpretation Comments Monocytes (test code = Monocytes) 10.6 2.0-12.0 [place] 682882-07-26 23:29:00 Test Item Value Reference Range Interpretation Comments Eosinophils (test code = 2.5 See_Comment [A utomated message] The Eosinophils) system which ge nerated this result tra nsmitted reference range : <=4.0. The reference r denia was not used to int erpret this result as normal/abnormal . [facility] CenterZbxwmpeAQEHDUFSFQ9763-52-10 23:29:00 Test Item Value Reference Range Interpretation Comments Basophils (test code = 0.6 See_Comment [Aut omated message] The Basophils) system which ge nerated this result tra nsmitted reference range : <=1.0. The reference r denia was not used to int erpret this result as normal/abnormal . [facility] CenterJvbxeyrUZGAXOWMYM9316-05-43 23:29:00 Test Item Value Reference Range Interpretation Comments Neutrophils # (test code = Neutrophils 1.5 1.5-8.1 #) [facility] CenterDkdvehxDORSGZTELL8128-65-43 23:29:00 Test Item Value Reference Range Interpretation Comments Lymphocytes # (test code = Lymphocytes 1.1 1.0-5.5 #) [facility] CenterCimkrsuRQOBTWGEHD1582-09-57 23:29:00 Test Item Value Reference Range Interpretation Comments Monocytes # (test code 0.3 See_Comment [Aut omated message] The = Monocytes #) system which generated this result tra nsmitted reference range : <=0.8. The reference r denia was not used to int erpret this result as normal/abnormal . [facility] CenterYwdhjnoYKZQYMOQWC4170-45-14 23:29:00 Test Item Value Reference Range Interpretation Comments Eosinophils # (test code 0.1 See_Comment [A utomated message] The = Eosinophils #) system whic h generated this result tra nsmitted reference range : <=0.5. The reference r denia was not used to int erpret this result as normal/abnormal . [place] 682882-07-26 23:29:00 Test Item Value Reference Range Interpretation Comments Macrocyte (test code = 1+ *ABN*(03/16/22 Macrocyte) 6:29 PM) [facility] [id number] 00:45:00 Test Item Value Reference Range Interpretation Comments HS Troponin I 1 Hr (test code = HS 4 Troponin I 1 Hr) [facility] [id number] 00:45:00 Test Item Value Reference Range Interpretation Comments HS Troponin I 0 to 1 Hour Delta (test 0 1 code = HS Troponin I 0 to 1 Hour Delta) [facility] [id number] 00:45:00 Test Item Value Reference Range Interpretation Comments HS Troponin I 1 Hr (test code = HS 4 Troponin I 1 Hr) [facility] [id number] 00:45:00 Test Item Value Reference Range Interpretation Comments HS Troponin I 0 to 1 Hour Delta (test 0 1 code = HS Troponin I 0 to 1 Hour Delta) [facility] [id number] 00:45:00 Test Item Value Reference Range Interpretation Comments HS Troponin I 1 Hr (test code = HS 4 Troponin I 1 Hr) [facility] [id number] 00:45:00 Test Item Value Reference Range Interpretation Comments HS Troponin I 0 to 1 Hour Delta (test 0 1 code = HS Troponin I 0 to 1 Hour Delta) [facility] [id number] 00:45:00 Test Item Value Reference Range Interpretation Comments HS Troponin I 1 Hr (test code = HS 4 Troponin I 1 Hr) [facility] [id number] 00:45:00 Test Item Value Reference Range Interpretation Comments HS Troponin I 0 to 1 Hour Delta (test 0 1 code = HS Troponin I 0 to 1 Hour Delta) [facility] [id number] 00:45:00 Test Item Value Reference Range Interpretation Comments HS Troponin I 1 Hr (test code = HS 4 Troponin I 1 Hr) [facility] [id number] 00:45:00 Test Item Value Reference Range Interpretation Comments HS Troponin I 0 to 1 Hour Delta (test 0 1 code = HS Troponin I 0 to 1 Hour Delta) [facility] [id number] 00:45:00 Test Item Value Reference Range Interpretation Comments HS Troponin I 1 Hr (test code = HS 4 Troponin I 1 Hr) [facility] [id number] 00:45:00 Test Item Value Reference Range Interpretation Comments HS Troponin I 0 to 1 Hour Delta (test 0 1 code = HS Troponin I 0 to 1 Hour Delta) [facility] [id number] 00:45:00 Test Item Value Reference Range Interpretation Comments HS Troponin I 1 Hr (test code = HS 4 Troponin I 1 Hr) [facility] [id number] 00:45:00 Test Item Value Reference Range Interpretation Comments HS Troponin I 0 to 1 Hour Delta (test 0 1 code = HS Troponin I 0 to 1 Hour Delta) [facility] [id number] 00:45:00 Test Item Value Reference Range Interpretation Comments HS Troponin I 1 Hr (test code = HS 4 Troponin I 1 Hr) [facility] [id number] 00:45:00 Test Item Value Reference Range Interpretation Comments HS Troponin I 0 to 1 Hour Delta (test 0 1 code = HS Troponin I 0 to 1 Hour Delta) [facility] [id number] 00:45:00 Test Item Value Reference Range Interpretation Comments HS Troponin I 1 Hr (test code = HS 4 Troponin I 1 Hr) [facility] [id number] 00:45:00 Test Item Value Reference Range Interpretation Comments HS Troponin I 0 to 1 Hour Delta (test 0 1 code = HS Troponin I 0 to 1 Hour Delta) [facility] [id number] 00:45:00 Test Item Value Reference Range Interpretation Comments HS Troponin I 1 Hr (test code = HS 4 Troponin I 1 Hr) [facility] [id number] 00:45:00 Test Item Value Reference Range Interpretation Comments HS Troponin I 0 to 1 Hour Delta (test 0 1 code = HS Troponin I 0 to 1 Hour Delta) [facility] [id number] 00:45:00 Test Item Value Reference Range Interpretation Comments HS Troponin I 1 Hr (test code = HS 4 Troponin I 1 Hr) [facility] [id number] 00:45:00 Test Item Value Reference Range Interpretation Comments HS Troponin I 0 to 1 Hour Delta (test 0 1 code = HS Troponin I 0 to 1 Hour Delta) [facility]2022-07-20 23:02:00 Test Item Value Reference Range Interpretation Comments Creatinine Lvl (test code = Creatinine 0.64 0.50-1.40 Lvl) [facility] CenterClikjzhYJCBOEBLZO3534-02-90 23:02:00 Test Item Value Reference Range Interpretation Comments Hgb (test code = Hgb) 14.5 12.0-16.0 [facility] CenterNneumgwSXMHQOXXOO2791-09-53 23:02:00 Test Item Value Reference Range Interpretation Comments Hct (test code = Hct) 42.0 36.0-48.0 [facility] CenterXhnoeyjEASURMKFWB2857-61-29 23:02:00 Test Item Value Reference Range Interpretation Comments MCV (test code = MCV) 101.7 80.0-98.0 [facility] CenterSkuowiaCCECBIMSHA1009-23-66 23:02:00 Test Item Value Reference Range Interpretation Comments MCH (test code = MCH) 35.0 pg 27.0-31.0 [facility] CenterMspnutoQUDRZPGHEB0101-04-56 23:02:00 Test Item Value Reference Range Interpretation Comments MCHC (test code = MCHC) 34.4 32.0-36.0 [facility] CenterEsloycjLSHFJKNIMJ9864-58-09 23:02:00 Test Item Value Reference Range Interpretation Comments RDW (test code = RDW) 16.0 11.5-14.5 [facility] CenterGlwczfaSEHDPFQPIT1900-64-41 23:02:00 Test Item Value Reference Range Interpretation Comments Platelet (test code = Platelet) 135 133-450 [facility] CenterApthabbTEUIXUMBYO2439-60-99 23:02:00 Test Item Value Reference Range Interpretation Comments MPV (test code = MPV) 8.1 7.4-10.4 [facility] CenterXtfnhkiJDCTVTGAZT6900-12-91 23:02:00 Test Item Value Reference Range Interpretation Comments Segs (test code = Segs) 66.7 45.0-75.0 [facility] CenterUrxfardOGUHHHGIQK5034-22-42 23:02:00 Test Item Value Reference Range Interpretation Comments Lymphocytes (test code = Lymphocytes) 24.6 20.0-40.0 [facility]2022-07-20 23:02:00 Test Item Value Reference Range Interpretation Comments Sodium Lvl (test code = Sodium Lvl) 138 135-145 [facility] CenterGriiuaoDRWZQPXLVG9285-01-81 23:02:00 Test Item Value Reference Range Interpretation Comments Monocytes (test code = Monocytes) 7.0 2.0-12.0 [facility] CenterKebxxqvCWZTBZIPBN5314-81-16 23:02:00 Test Item Value Reference Range Interpretation Comments Eosinophils (test code = 0.8 See_Comment [A utomated message] The Eosinophils) system which ge nerated this result tra nsmitted reference range : <=4.0. The reference r denia was not used to int erpret this result as normal/abnormal . [facility] CenterQuydxxqBBRXLLCLFM6387-24-55 23:02:00 Test Item Value Reference Range Interpretation Comments Basophils (test code = 0.9 See_Comment [Aut omated message] The Basophils) system which ge nerated this result tra nsmitted reference range : <=1.0. The reference r denia was not used to int erpret this result as normal/abnormal . [facility] CenterFbplnuzLBVFWLHCRF7517-01-65 23:02:00 Test Item Value Reference Range Interpretation Comments Neutrophils # (test code = Neutrophils 3.5 1.5-8.1 #) [facility] CenterKryudrrZMFWNYKULC0936-00-79 23:02:00 Test Item Value Reference Range Interpretation Comments Lymphocytes # (test code = Lymphocytes 1.3 1.0-5.5 #) [facility] CenterMbsfcmqAXRPCUERJM5328-81-42 23:02:00 Test Item Value Reference Range Interpretation Comments Monocytes # (test code 0.4 See_Comment [Aut omated message] The = Monocytes #) system which generated this result tra nsmitted reference range : <=0.8. The reference r denia was not used to int erpret this result as normal/abnormal . [facility] [employer] [id number] 23:02:00 Test Item Value Reference Range Interpretation Comments Potassium Lvl (test code = Potassium 4.1 3.5-5.1 Lvl) [facility] [id number] 23:02:00 Test Item Value Reference Range Interpretation Comments Chloride Lvl (test code = Chloride Lvl) 104 95-109 [facility] [id number] 23:02:00 Test Item Value Reference Range Interpretation Comments CO2 (test code = CO2) 30 24-32 [facility] LancasterSOLEM ElectroniqueTQXEW6579-53-66 23:02:00 Test Item Value Reference Range Interpretation Comments Calcium Lvl (test code = Calcium Lvl) 9.1 8.5-10.5 [facility] [employer]2022-07-20 23:02:00 Test Item Value Reference Range Interpretation Comments Total Protein (test code = Total 6.7 6.4-8.4 Protein) [facility] [employer]2022-07-20 23:02:00 Test Item Value Reference Range Interpretation Comments Albumin Lvl (test code = Albumin Lvl) 3.6 3.5-5.0 [facility] [employer]2022-07-20 23:02:00 Test Item Value Reference Range Interpretation Comments ALT (test code = ALT) 146 See_Comment [Auto mated message] The system which ge nerated this result transmit mau reference range : <=65. The reference range was not used to interpr et this result as elaine l/abnormal. [facility] [employer]2022-07-20 23:02:00 Test Item Value Reference Range Interpretation Comments AST (test code = AST) 236 See_Comment [Auto mated message] The system which ge nerated this result transmit mau reference range : <=37. The reference range was not used to interpr et this result as elaine l/abnormal. [facility] [employer]2022-07-20 23:02:00 Test Item Value Reference Range Interpretation Comments BNP (test code = BNP) 52 [facility] [employer]2022-07-20 23:02:00 Test Item Value Reference Range Interpretation Comments Total CK (test code = Total CK) 78 12-191 [facility] [employer]2022-07-20 23:02:00 Test Item Value Reference Range Interpretation Comments HS Troponin I Baseline (test code = HS 4 Troponin I Baseline) [facility] [employer]2022-07-20 23:02:00 Test Item Value Reference Range Interpretation Comments Alk Phos (test code = Alk Phos) 157 39-136 [facility] [employer]2022-07-20 23:02:00 Test Item Value Reference Range Interpretation Comments Glucose Lvl (test code = Glucose Lvl) 109 70-99 [facility] [employer]2022-07-20 23:02:00 Test Item Value Reference Range Interpretation Comments BUN (test code = BUN) 11 7-22 [facility] [employer]-07-20 23:02:00 Test Item Value Reference Range Interpretation Comments Creatinine Lvl (test code = Creatinine 0.64 0.50-1.40 Lvl) [address]07-20 23:02:00 Test Item Value Reference Range Interpretation Comments Sodium Lvl (test code = Sodium Lvl) 138 135-145 [place] 773372-07-20 23:02:00 Test Item Value Reference Range Interpretation Comments Potassium Lvl (test code = Potassium 4.1 3.5-5.1 Lvl) [place] [address]-07-20 23:02:00 Test Item Value Reference Range Interpretation Comments Chloride Lvl (test code = Chloride Lvl) 104 95-109 [place] [address]-07-20 23:02:00 Test Item Value Reference Range Interpretation Comments CO2 (test code = CO2) 30 24-32 [place] [address]-07-20 23:02:00 Test Item Value Reference Range Interpretation Comments Calcium Lvl (test code = Calcium Lvl) 9.1 8.5-10.5 [place] 773372-07-20 23:02:00 Test Item Value Reference Range Interpretation Comments Total Protein (test code = Total 6.7 6.4-8.4 Protein) [address]07-20 23:02:00 Test Item Value Reference Range Interpretation Comments Albumin Lvl (test code = Albumin Lvl) 3.6 3.5-5.[address]07-20 23:02:00 Test Item Value Reference Range Interpretation Comments Bili Total (test code = Bili Total) 0.6 0.2-1.3 [place] [address]-07-20 23:02:00 Test Item Value Reference Range Interpretation Comments ALT (test code = ALT) 146 See_Comment [Auto mated message] The system which ge nerated this result transmit mau reference range : <=65. The reference range was not used to interpr et this result as elaine l/abnormal. [address]07-20 23:02:00 Test Item Value Reference Range Interpretation Comments AST (test code = AST) 236 See_Comment [Auto mated message] The system which ge nerated this result transmit mau reference range : <=37. The reference range was not used to interpr et this result as elaine l/abnormal. [facility]2022-07-20 23:02:00 Test Item Value Reference Range Interpretation Comments Alk Phos (test code = Alk Phos) 157 39-136 [facility]2022-07-20 23:02:00 Test Item Value Reference Range Interpretation Comments Bili Total (test code = Bili Total) 0.6 0.2-1.3 [facility]2022-07-20 23:02:00 Test Item Value Reference Range Interpretation Comments AGAP (test code = AGAP) 8.1 10.0-20.0 [facility]2022-07-20 23:02:00 Test Item Value Reference Range Interpretation Comments B/C Ratio (test code = B/C Ratio) 17 1 6-25 [facility]2022-07-20 23:02:00 Test Item Value Reference Range Interpretation Comments Globulin (test code = Globulin) 3.1 2.7-4.2 [facility]2022-07-20 23:02:00 Test Item Value Reference Range Interpretation Comments A/G Ratio (test code = A/G Ratio) 1.2 1 0.7-1.6 [facility]2022-07-20 23:02:00 Test Item Value Reference Range Interpretation Comments eGFR (test code = eGFR) 102 [facility] CenterJampsfuKBRUXNVGAL0561-84-39 23:02:00 Test Item Value Reference Range Interpretation Comments WBC (test code = WBC) 5.3 3.7-10.4 [facility] [id number] 23:02:00 Test Item Value Reference Range Interpretation Comments AGAP (test code = AGAP) 8.1 10.0-20.0 [facility] CenterQwtpsrqTMWMLNROAY3814-81-35 23:02:00 Test Item Value Reference Range Interpretation Comments RBC (test code = RBC) 4.13 4.20-5.40 [place] 682882-07-20 23:02:00 Test Item Value Reference Range Interpretation Comments Hgb (test code = Hgb) 14.5 12.0-16.0 [place] 682882-07-20 23:02:00 Test Item Value Reference Range Interpretation Comments Hct (test code = Hct) 42.0 36.0-48.0 [facility]LacopdsOYPMMTJRPO6133-87-58 23:02:00 Test Item Value Reference Range Interpretation Comments MCV (test code = MCV) 101.7 80.0-98.0 [place] 682882-07-20 23:02:00 Test Item Value Reference Range Interpretation Comments MCH (test code = MCH) 35.0 pg 27.0-31.0 [facility] CenterAnjxecqUAUGUBDJXG2948-26-41 23:02:00 Test Item Value Reference Range Interpretation Comments MCHC (test code = MCHC) 34.4 32.0-36.0 [facility] CenterLnqbnmaFGUCZSQXAN6636-81-85 23:02:00 Test Item Value Reference Range Interpretation Comments RDW (test code = RDW) 16.0 11.5-14.5 [facility] CenterLlunqdpYSAZVUDCTX7646-61-02 23:02:00 Test Item Value Reference Range Interpretation Comments Platelet (test code = Platelet) 135 133-450 [facility] CenterGjpgdtgJFOXXYSQAK9906-83-64 23:02:00 Test Item Value Reference Range Interpretation Comments MPV (test code = MPV) 8.1 7.4-10.4 [facility] CenterFruneuaOJSZYKVORQ9465-23-98 23:02:00 Test Item Value Reference Range Interpretation Comments Segs (test code = Segs) 66.7 45.0-75.0 [facility]2022-07-20 23:02:00 Test Item Value Reference Range Interpretation Comments B/C Ratio (test code = B/C Ratio) 17 1 6-25 [facility] CenterKqlloboDQVLJHCDRT6354-56-35 23:02:00 Test Item Value Reference Range Interpretation Comments Lymphocytes (test code = Lymphocytes) 24.6 20.0-40.0 [facility] CenterErwgnqyNDSELJFPCE9536-67-64 23:02:00 Test Item Value Reference Range Interpretation Comments Monocytes (test code = Monocytes) 7.0 2.0-12.0 [place] 682882-07-20 23:02:00 Test Item Value Reference Range Interpretation Comments Eosinophils (test code = 0.8 See_Comment [A utomated message] The Eosinophils) system which ge nerated this result tra nsmitted reference range : <=4.0. The reference r denia was not used to int erpret this result as normal/abnormal . [facility] CenterMkvxkcuEPLMFZRGQY6484-68-96 23:02:00 Test Item Value Reference Range Interpretation Comments Basophils (test code = 0.9 See_Comment [Aut omated message] The Basophils) system which ge nerated this result tra nsmitted reference range : <=1.0. The reference r denia was not used to int erpret this result as normal/abnormal . [facility] LancasterEvhpgysSYMSKYNNPE2058-56-33 23:02:00 Test Item Value Reference Range Interpretation Comments Neutrophils # (test code = Neutrophils 3.5 1.5-8.1 #) [facility] CenterUflrlqjQAZHPBSBAY3771-52-80 23:02:00 Test Item Value Reference Range Interpretation Comments Lymphocytes # (test code = Lymphocytes 1.3 1.0-5.5 #) [facility] LancasterKyfgylvBDRGJCBPLB4987-18-77 23:02:00 Test Item Value Reference Range Interpretation Comments Monocytes # (test code 0.4 See_Comment [Aut omated message] The = Monocytes #) system which generated this result tra nsmitted reference range : <=0.8. The reference r denia was not used to int erpret this result as normal/abnormal . [facility] [employer] UVBJJ7426-49-94 23:02:00 Test Item Value Reference Range Interpretation Comments Globulin (test code = Globulin) 3.1 2.7-4.2 [facility] [employer] EGDSI7897-48-11 23:02:00 Test Item Value Reference Range Interpretation Comments A/G Ratio (test code = A/G Ratio) 1.2 1 0.7-1.6 [facility] [employer] [id number] 23:02:00 Test Item Value Reference Range Interpretation Comments eGFR (test code = eGFR) 102 [facility] LancasterSltbjwfZGTJEQEXML4932-21-15 23:02:00 Test Item Value Reference Range Interpretation Comments WBC (test code = WBC) 5.3 3.7-10.4 [facility] LancasterRwnwifgHGOCBHLDYG8537-95-99 23:02:00 Test Item Value Reference Range Interpretation Comments RBC (test code = RBC) 4.13 4.20-5.40 [facility] LancasterTjmsviqYOFGOUMFGP2767-87-24 23:02:00 Test Item Value Reference Range Interpretation Comments Hgb (test code = Hgb) 14.5 12.0-16.0 [facility] LancasterKjfdrriDLRSKOLWSV7228-27-32 23:02:00 Test Item Value Reference Range Interpretation Comments Hct (test code = Hct) 42.0 36.0-48.0 [facility] FblqejtIXJHYUXFAC5557-48-97 23:02:00 Test Item Value Reference Range Interpretation Comments MCV (test code = MCV) 101.7 80.0-98.0 [facility] LancasterUpptalk OZRYGBE0692-89-83 23:02:00 Test Item Value Reference Range Interpretation Comments BNP (test code = BNP) 52 [facility] LancasterBest Doctors SGEEHRT6053-75-15 23:02:00 Test Item Value Reference Range Interpretation Comments Total CK (test code = Total CK) 78 12-191 [facility] LancasterEtomnplTDGFOWSBQI0183-64-34 23:02:00 Test Item Value Reference Range Interpretation Comments MCH (test code = MCH) 35.0 pg 27.0-31.0 [facility] [employer]2022-07-20 23:02:00 Test Item Value Reference Range Interpretation Comments HS Troponin I Baseline (test code = HS 4 Troponin I Baseline) [facility] [employer]2022-07-20 23:02:00 Test Item Value Reference Range Interpretation Comments Glucose Lvl (test code = Glucose Lvl) 109 70-99 [facility] [employer] VQNMR8564-07-68 23:02:00 Test Item Value Reference Range Interpretation Comments BUN (test code = BUN) 11 7-22 [facility] [employer]2022-07-20 23:02:00 Test Item Value Reference Range Interpretation Comments Creatinine Lvl (test code = Creatinine 0.64 0.50-1.40 Lvl) [facility] [employer]2022-07-20 23:02:00 Test Item Value Reference Range Interpretation Comments Sodium Lvl (test code = Sodium Lvl) 138 135-145 [facility] [employer] [id number] 23:02:00 Test Item Value Reference Range Interpretation Comments Potassium Lvl (test code = Potassium 4.1 3.5-5.1 Lvl) [facility] [employer]2022-07-20 23:02:00 Test Item Value Reference Range Interpretation Comments Chloride Lvl (test code = Chloride Lvl) 104 95-109 [facility] [employer]2022-07-20 23:02:00 Test Item Value Reference Range Interpretation Comments CO2 (test code = CO2) 30 24-32 [facility] [employer] [id number] 23:02:00 Test Item Value Reference Range Interpretation Comments Calcium Lvl (test code = Calcium Lvl) 9.1 8.5-10.5 [facility]2022-07-20 23:02:00 Test Item Value Reference Range Interpretation Comments Total Protein (test code = Total 6.7 6.4-8.4 Protein) [facility]LqcfvouKLYWHJHRXK1662-45-08 23:02:00 Test Item Value Reference Range Interpretation Comments MCHC (test code = MCHC) 34.4 32.0-36.0 [facility]2022-07-20 23:02:00 Test Item Value Reference Range Interpretation Comments Albumin Lvl (test code = Albumin Lvl) 3.6 3.5-5.0 [facility]2022-07-20 23:02:00 Test Item Value Reference Range Interpretation Comments ALT (test code = ALT) 146 See_Comment [Auto mated message] The system which ge nerated this result transmit mau reference range : <=65. The reference range was not used to interpr et this result as elaine l/abnormal. [facility]2022-07-20 23:02:00 Test Item Value Reference Range Interpretation Comments AST (test code = AST) 236 See_Comment [Auto mated message] The system which ge nerated this result transmit mau reference range : <=37. The reference range was not used to interpr et this result as elaine l/abnormal. [facility]2022-07-20 23:02:00 Test Item Value Reference Range Interpretation Comments Alk Phos (test code = Alk Phos) 157 39-136 [facility]2022-07-20 23:02:00 Test Item Value Reference Range Interpretation Comments Bili Total (test code = Bili Total) 0.6 0.2-1.3 [facility]2022-07-20 23:02:00 Test Item Value Reference Range Interpretation Comments AGAP (test code = AGAP) 8.1 10.0-20.0 [place] 773372-07-20 23:02:00 Test Item Value Reference Range Interpretation Comments B/C Ratio (test code = B/C Ratio) 17 1 6-25 [place] 773372-07-20 23:02:00 Test Item Value Reference Range Interpretation Comments Globulin (test code = Globulin) 3.1 2.7-4.2 [facility]2022-07-20 23:02:00 Test Item Value Reference Range Interpretation Comments A/G Ratio (test code = A/G Ratio) 1.2 1 0.7-1.6 [facility]2022-07-20 23:02:00 Test Item Value Reference Range Interpretation Comments eGFR (test code = eGFR) 102 [facility] CenterXhjpyppMLOBDYTEWP2316-07-41 23:02:00 Test Item Value Reference Range Interpretation Comments RDW (test code = RDW) 16.0 11.5-14.5 [place] 682882-07-20 23:02:00 Test Item Value Reference Range Interpretation Comments WBC (test code = WBC) 5.3 3.7-10.4 [facility] CenterObvscckMDSJPKNSSW2465-56-67 23:02:00 Test Item Value Reference Range Interpretation Comments RBC (test code = RBC) 4.13 4.20-5.40 [facility] CenterScoianiNFMSPYMWOZ8211-99-91 23:02:00 Test Item Value Reference Range Interpretation Comments Hgb (test code = Hgb) 14.5 12.0-16.0 [facility] CenterJfroljtMHCPHPIYFB6925-17-84 23:02:00 Test Item Value Reference Range Interpretation Comments Hct (test code = Hct) 42.0 36.0-48.0 [facility] CenterDsimgqcHFTTZUGCDA6863-68-63 23:02:00 Test Item Value Reference Range Interpretation Comments MCV (test code = MCV) 101.7 80.0-98.0 [facility] CenterRcmeqmwGIVXARMKKO8232-87-85 23:02:00 Test Item Value Reference Range Interpretation Comments MCH (test code = MCH) 35.0 pg 27.0-31.0 [facility] CenterUryzpcoTCDMALHJOM5263-39-09 23:02:00 Test Item Value Reference Range Interpretation Comments MCHC (test code = MCHC) 34.4 32.0-36.0 [facility] CenterNpbannuQXHQAXEPVL1005-40-29 23:02:00 Test Item Value Reference Range Interpretation Comments RDW (test code = RDW) 16.0 11.5-14.5 [facility] CenterYlgtakgBVEJJJHZWK4203-53-33 23:02:00 Test Item Value Reference Range Interpretation Comments Platelet (test code = Platelet) 135 133-450 [facility] CenterQjssphaMZAHQTFHSI4984-39-38 23:02:00 Test Item Value Reference Range Interpretation Comments MPV (test code = MPV) 8.1 7.4-10.4 [place] 682882-07-20 23:02:00 Test Item Value Reference Range Interpretation Comments Platelet (test code = Platelet) 135 133-450 [place] 682882-07-20 23:02:00 Test Item Value Reference Range Interpretation Comments Segs (test code = Segs) 66.7 45.0-75.0 [facility] CenterPtroyevTCJDWQTKJN8891-50-81 23:02:00 Test Item Value Reference Range Interpretation Comments Lymphocytes (test code = Lymphocytes) 24.6 20.0-40.0 [place] 682882-07-20 23:02:00 Test Item Value Reference Range Interpretation Comments Monocytes (test code = Monocytes) 7.0 2.0-12.0 [facility] CenterLiiekdiJXKAGZGVSN5449-83-35 23:02:00 Test Item Value Reference Range Interpretation Comments Eosinophils (test code = 0.8 See_Comment [A utomated message] The Eosinophils) system which ge nerated this result tra nsmitted reference range : <=4.0. The reference r denia was not used to int erpret this result as normal/abnormal . [facility] CenterHxcwnnhDNELJYVNJQ1843-52-76 23:02:00 Test Item Value Reference Range Interpretation Comments Basophils (test code = 0.9 See_Comment [Aut omated message] The Basophils) system which ge nerated this result tra nsmitted reference range : <=1.0. The reference r denia was not used to int erpret this result as normal/abnormal . [facility] CenterZutxrgiXSMIKWERJD3557-42-76 23:02:00 Test Item Value Reference Range Interpretation Comments Neutrophils # (test code = Neutrophils 3.5 1.5-8.1 #) [facility] CenterJlmygzaGICJVCUDQU6361-83-36 23:02:00 Test Item Value Reference Range Interpretation Comments Lymphocytes # (test code = Lymphocytes 1.3 1.0-5.5 #) [place] 682882-07-20 23:02:00 Test Item Value Reference Range Interpretation Comments Monocytes # (test code 0.4 See_Comment [Aut omated message] The = Monocytes #) system which generated this result tra nsmitted reference range : <=0.8. The reference r denia was not used to int erpret this result as normal/abnormal . [facility]IaukfgoBVFPAOBYHJ4778-87-49 23:02:00 Test Item Value Reference Range Interpretation Comments MPV (test code = MPV) 8.1 7.4-10.4 [facility] CenterAysiqcxYWSUJOWOZJ5028-78-92 23:02:00 Test Item Value Reference Range Interpretation Comments Segs (test code = Segs) 66.7 45.0-75.0 [facility] CenterEpilannWRXAGJLRLR8393-52-35 23:02:00 Test Item Value Reference Range Interpretation Comments Lymphocytes (test code = Lymphocytes) 24.6 20.0-40.0 [facility] CenterMjexqujGSLDMBTHMG2383-63-15 23:02:00 Test Item Value Reference Range Interpretation Comments Monocytes (test code = Monocytes) 7.0 2.0-12.0 [facility] CenterLqpbxpyEEOEHOAFOX9948-71-89 23:02:00 Test Item Value Reference Range Interpretation Comments Eosinophils (test code = 0.8 See_Comment [A utomated message] The Eosinophils) system which ge nerated this result tra nsmitted reference range : <=4.0. The reference r denia was not used to int erpret this result as normal/abnormal . [facility] CenterWcsnaprFXSQVLPTAU7705-82-40 23:02:00 Test Item Value Reference Range Interpretation Comments Basophils (test code = 0.9 See_Comment [Aut omated message] The Basophils) system which ge nerated this result tra nsmitted reference range : <=1.0. The reference r denia was not used to int erpret this result as normal/abnormal . [facility] CenterHujlfchZOPCCKVGRJ6570-29-59 23:02:00 Test Item Value Reference Range Interpretation Comments Neutrophils # (test code = Neutrophils 3.5 1.5-8.1 #) [facility] CenterPhvdisnSQYHHPONLG2269-69-08 23:02:00 Test Item Value Reference Range Interpretation Comments Lymphocytes # (test code = Lymphocytes 1.3 1.0-5.5 #) [facility] CenterCARDIEAT[facility] CENTERQEIXOEK0452-22-55 23:02:00 Test Item Value Reference Range Interpretation Comments BNP (test code = BNP) 52 [facility] CenterJtoxtxkWOPBYJGTEZ9380-53-97 23:02:00 Test Item Value Reference Range Interpretation Comments Monocytes # (test code 0.4 See_Comment [Aut omated message] The = Monocytes #) system which generated this result tra nsmitted reference range : <=0.8. The reference r denia was not used to int erpret this result as normal/abnormal . [facility] YAIYKAV4663-27-29 23:02:00 Test Item Value Reference Range Interpretation Comments Total CK (test code = Total CK) 78 12-191 [facility] CenterGLOLIVINGST[facility] [id number] 23:02:00 Test Item Value Reference Range Interpretation Comments HS Troponin I Baseline (test code = HS 4 Troponin I Baseline) [facility] [id number] 23:02:00 Test Item Value Reference Range Interpretation Comments Glucose Lvl (test code = Glucose Lvl) 109 70-99 [facility] [id number] 23:02:00 Test Item Value Reference Range Interpretation Comments BUN (test code = BUN) 11 7-22 [facility] [id number] 23:02:00 Test Item Value Reference Range Interpretation Comments Creatinine Lvl (test code = Creatinine 0.64 0.50-1.40 Lvl) [facility] [employer] [id number] 23:02:00 Test Item Value Reference Range Interpretation Comments Sodium Lvl (test code = Sodium Lvl) 138 135-145 [facility] [employer] [id number] 23:02:00 Test Item Value Reference Range Interpretation Comments Potassium Lvl (test code = Potassium 4.1 3.5-5.1 Lvl) [facility] YTXPJ1389-20-20 23:02:00 Test Item Value Reference Range Interpretation Comments Chloride Lvl (test code = Chloride Lvl) 104 95-109 [facility] TUJKR5153-17-24 23:02:00 Test Item Value Reference Range Interpretation Comments CO2 (test code = CO2) 30 24-32 [facility] GLERS1962 23:02:00 Test Item Value Reference Range Interpretation Comments Calcium Lvl (test code = Calcium Lvl) 9.1 8.5-10.5 [facility] LBQZV9624-06-32 23:02:00 Test Item Value Reference Range Interpretation Comments Total Protein (test code = Total 6.7 6.4-8.4 Protein) [facility] [id number] 23:02:00 Test Item Value Reference Range Interpretation Comments Albumin Lvl (test code = Albumin Lvl) 3.6 3.5-5.0 [facility] [employer] [id number] 23:02:00 Test Item Value Reference Range Interpretation Comments ALT (test code = ALT) 146 See_Comment [Auto mated message] The system which ge nerated this result transmit mau reference range : <=65. The reference range was not used to interpr et this result as elaine l/abnormal. [facility] [employer] [id number] 23:02:00 Test Item Value Reference Range Interpretation Comments AST (test code = AST) 236 See_Comment [Auto mated message] The system which ge nerated this result transmit mau reference range : <=37. The reference range was not used to interpr et this result as elaine l/abnormal. [facility] [employer] [id number] 23:02:00 Test Item Value Reference Range Interpretation Comments Alk Phos (test code = Alk Phos) 157 39-136 [facility] [employer] [id number] 23:02:00 Test Item Value Reference Range Interpretation Comments Bili Total (test code = Bili Total) 0.6 0.2-1.3 [facility] [employer] [id number] 23:02:00 Test Item Value Reference Range Interpretation Comments AGAP (test code = AGAP) 8.1 10.0-20.0 [facility] [employer] [id number] 23:02:00 Test Item Value Reference Range Interpretation Comments B/C Ratio (test code = B/C Ratio) 17 1 6-25 [facility] [employer] [id number] 23:02:00 Test Item Value Reference Range Interpretation Comments Globulin (test code = Globulin) 3.1 2.7-4.2 [facility] [employer] [id number] 23:02:00 Test Item Value Reference Range Interpretation Comments A/G Ratio (test code = A/G Ratio) 1.2 1 0.7-1.6 [facility] [employer] [id number] 23:02:00 Test Item Value Reference Range Interpretation Comments eGFR (test code = eGFR) 102 [facility] ExvyqdiDOFDLYKTRZ4333-14-05 23:02:00 Test Item Value Reference Range Interpretation Comments WBC (test code = WBC) 5.3 3.7-10.4 [facility] KsvseumGEYBBTRZIE4313-61-45 23:02:00 Test Item Value Reference Range Interpretation Comments RBC (test code = RBC) 4.13 4.20-5.40 [facility] CenterGztakqqKMTZFUTUYJ2529-82-56 23:02:00 Test Item Value Reference Range Interpretation Comments Hgb (test code = Hgb) 14.5 12.0-16.0 [facility] CenterLlfmxilASXASMNRER6399-15-09 23:02:00 Test Item Value Reference Range Interpretation Comments Hct (test code = Hct) 42.0 36.0-48.0 [facility] CenterQgoytsbMFQPICNMBB6517-17-33 23:02:00 Test Item Value Reference Range Interpretation Comments MCV (test code = MCV) 101.7 80.0-98.0 [facility] CenterHbkswjpAVKIHJBKWG1950-86-09 23:02:00 Test Item Value Reference Range Interpretation Comments MCH (test code = MCH) 35.0 pg 27.0-31.0 [facility] CenterYjwsrhfHRGEOBHALJ5870-77-87 23:02:00 Test Item Value Reference Range Interpretation Comments MCHC (test code = MCHC) 34.4 32.0-36.0 [facility] CenterLboghrcQZAEEOTNTI3187-36-31 23:02:00 Test Item Value Reference Range Interpretation Comments RDW (test code = RDW) 16.0 11.5-14.5 [facility] CenterCpwcvpfXOXPBDFYSC0390-14-81 23:02:00 Test Item Value Reference Range Interpretation Comments Platelet (test code = Platelet) 135 133-450 [facility] CenterQbkjjvpXHRVHTLLEX5834-01-06 23:02:00 Test Item Value Reference Range Interpretation Comments MPV (test code = MPV) 8.1 7.4-10.4 [facility] CenterNxsqdlrJLUSRTPFXA4025-56-69 23:02:00 Test Item Value Reference Range Interpretation Comments Segs (test code = Segs) 66.7 45.0-75.0 [facility] CenterEaiziumKTAQSGFLSW3728-10-46 23:02:00 Test Item Value Reference Range Interpretation Comments Lymphocytes (test code = Lymphocytes) 24.6 20.0-40.0 [facility] CenterKaminubOFXOHOJCDV4958-07-74 23:02:00 Test Item Value Reference Range Interpretation Comments Monocytes (test code = Monocytes) 7.0 2.0-12.0 [facility] CenterWkstjylGSQJDOPDWD6078-16-01 23:02:00 Test Item Value Reference Range Interpretation Comments Eosinophils (test code = 0.8 See_Comment [A utomated message] The Eosinophils) system which ge nerated this result tra nsmitted reference range : <=4.0. The reference r denia was not used to int erpret this result as normal/abnormal . [facility] StqhoqyPQRIMSXSPJ4631-67-86 23:02:00 Test Item Value Reference Range Interpretation Comments Basophils (test code = 0.9 See_Comment [Aut omated message] The Basophils) system which ge nerated this result tra nsmitted reference range : <=1.0. The reference r denia was not used to int erpret this result as normal/abnormal . [facility] YeqqhhrFNJANEVBKH2310-16-20 23:02:00 Test Item Value Reference Range Interpretation Comments Neutrophils # (test code = Neutrophils 3.5 1.5-8.1 #) [facility] LancasterNqehqahOXREJGJPGZ1738-29-76 23:02:00 Test Item Value Reference Range Interpretation Comments Lymphocytes # (test code = Lymphocytes 1.3 1.0-5.5 #) [facility] LancasterNrlbfvtJKFMCZWQUF9965-36-44 23:02:00 Test Item Value Reference Range Interpretation Comments Monocytes # (test code 0.4 See_Comment [Aut omated message] The = Monocytes #) system which generated this result tra nsmitted reference range : <=0.8. The reference r denia was not used to int erpret this result as normal/abnormal . [facility] [employer]2022-07-20 23:02:00 Test Item Value Reference Range Interpretation Comments BNP (test code = BNP) 52 [facility] [employer]2022-07-20 23:02:00 Test Item Value Reference Range Interpretation Comments Total CK (test code = Total CK) 78 12-191 [facility] [employer]2022-07-20 23:02:00 Test Item Value Reference Range Interpretation Comments HS Troponin I Baseline (test code = HS 4 Troponin I Baseline) [facility] [employer]2022-07-20 23:02:00 Test Item Value Reference Range Interpretation Comments Glucose Lvl (test code = Glucose Lvl) 109 70-99 [facility] [employer]2022-07-20 23:02:00 Test Item Value Reference Range Interpretation Comments BUN (test code = BUN) 11 7-22 [facility] [employer]2022-07-20 23:02:00 Test Item Value Reference Range Interpretation Comments Creatinine Lvl (test code = Creatinine 0.64 0.50-1.40 Lvl) [place] 773372-07-20 23:02:00 Test Item Value Reference Range Interpretation Comments Sodium Lvl (test code = Sodium Lvl) 138 135-145 [place] 773372-07-20 23:02:00 Test Item Value Reference Range Interpretation Comments Potassium Lvl (test code = Potassium 4.1 3.5-5.1 Lvl) [place] 773372-07-20 23:02:00 Test Item Value Reference Range Interpretation Comments Chloride Lvl (test code = Chloride Lvl) 104 95-109 [place] 773372-07-20 23:02:00 Test Item Value Reference Range Interpretation Comments CO2 (test code = CO2) 30 24-32 [place] 773372-07-20 23:02:00 Test Item Value Reference Range Interpretation Comments Calcium Lvl (test code = Calcium Lvl) 9.1 8.5-10.5 [place] 773372-07-20 23:02:00 Test Item Value Reference Range Interpretation Comments Total Protein (test code = Total 6.7 6.4-8.4 Protein) [place] 773372-07-20 23:02:00 Test Item Value Reference Range Interpretation Comments Albumin Lvl (test code = Albumin Lvl) 3.6 3.5-5.0 [place] 773372-07-20 23:02:00 Test Item Value Reference Range Interpretation Comments ALT (test code = ALT) 146 See_Comment [Auto mated message] The system which [employer] nerated this result transmit mau reference range : <=65. The reference range was not used to interpr et this result as elaine l/abnormal. [place] 773372-07-20 23:02:00 Test Item Value Reference Range Interpretation Comments AST (test code = AST) 236 See_Comment [Auto mated message] The system which [employer] nerated this result transmit mau reference range : <=37. The reference range was not used to interpr et this result as elaine l/abnormal. [place] 773372-07-20 23:02:00 Test Item Value Reference Range Interpretation Comments Alk Phos (test code = Alk Phos) 157 39-136 [place] 773372-07-20 23:02:00 Test Item Value Reference Range Interpretation Comments Bili Total (test code = Bili Total) 0.6 0.2-1.3 [place] 773372-07-20 23:02:00 Test Item Value Reference Range Interpretation Comments AGAP (test code = AGAP) 8.1 10.0-20.0 [place] 773372-07-20 23:02:00 Test Item Value Reference Range Interpretation Comments B/C Ratio (test code = B/C Ratio) 17 1 6-25 [place] 773372-07-20 23:02:00 Test Item Value Reference Range Interpretation Comments Globulin (test code = Globulin) 3.1 2.7-4.2 [place] 773372-07-20 23:02:00 Test Item Value Reference Range Interpretation Comments A/G Ratio (test code = A/G Ratio) 1.2 1 0.7-1.6 [place] 773372-07-20 23:02:00 Test Item Value Reference Range Interpretation Comments eGFR (test code = eGFR) 102 [facility] CenterBwsgcqjAFBPKBTAXQ7837-67-80 23:02:00 Test Item Value Reference Range Interpretation Comments WBC (test code = WBC) 5.3 3.7-10.4 [place] 682882-07-20 23:02:00 Test Item Value Reference Range Interpretation Comments RBC (test code = RBC) 4.13 4.20-5.40 [facility] CenterNwezecuZNDXOZZEFS8273-97-81 23:02:00 Test Item Value Reference Range Interpretation Comments Hgb (test code = Hgb) 14.5 12.0-16.0 [place] 682882-07-20 23:02:00 Test Item Value Reference Range Interpretation Comments Hct (test code = Hct) 42.0 36.0-48.0 [place] 682882-07-20 23:02:00 Test Item Value Reference Range Interpretation Comments MCV (test code = MCV) 101.7 80.0-98.0 [place] 682882-07-20 23:02:00 Test Item Value Reference Range Interpretation Comments MCH (test code = MCH) 35.0 pg 27.0-31.0 [place] 682882-07-20 23:02:00 Test Item Value Reference Range Interpretation Comments MCHC (test code = MCHC) 34.4 32.0-36.0 [facility] CenterXfddweyHYIITJYJWZ4418-09-59 23:02:00 Test Item Value Reference Range Interpretation Comments RDW (test code = RDW) 16.0 11.5-14.5 [place] 682882-07-20 23:02:00 Test Item Value Reference Range Interpretation Comments Platelet (test code = Platelet) 135 133-450 [facility] CenterLuiagddASTLARDJIT3646-65-98 23:02:00 Test Item Value Reference Range Interpretation Comments MPV (test code = MPV) 8.1 7.4-10.4 [facility] CenterWfmweoaPXVRYROEOA2829-41-54 23:02:00 Test Item Value Reference Range Interpretation Comments Segs (test code = Segs) 66.7 45.0-75.0 [place] 682882-07-20 23:02:00 Test Item Value Reference Range Interpretation Comments Lymphocytes (test code = Lymphocytes) 24.6 20.0-40.0 [facility] CenterNqylijiEXIZWQSHYE9188-96-69 23:02:00 Test Item Value Reference Range Interpretation Comments Monocytes (test code = Monocytes) 7.0 2.0-12.0 [facility] CenterUoukxkkOAZWPXPBHJ5931-12-55 23:02:00 Test Item Value Reference Range Interpretation Comments Eosinophils (test code = 0.8 See_Comment [A utomated message] The Eosinophils) system which ge nerated this result tra nsmitted reference range : <=4.0. The reference r denia was not used to int erpret this result as normal/abnormal . [facility] CenterRxxuokxPQCYSSYWJZ6264-71-84 23:02:00 Test Item Value Reference Range Interpretation Comments Basophils (test code = 0.9 See_Comment [Aut omated message] The Basophils) system which ge nerated this result tra nsmitted reference range : <=1.0. The reference r denia was not used to int erpret this result as normal/abnormal . [facility] CenterUrvhadrPRYRMLONJW8520-46-19 23:02:00 Test Item Value Reference Range Interpretation Comments Neutrophils # (test code = Neutrophils 3.5 1.5-8.1 #) [facility] CenterYawtalaQWARNMYLQH1743-38-71 23:02:00 Test Item Value Reference Range Interpretation Comments Lymphocytes # (test code = Lymphocytes 1.3 1.0-5.5 #) [facility] CenterIzbphkrCYFHTSWJTJ6076-26-09 23:02:00 Test Item Value Reference Range Interpretation Comments Monocytes # (test code 0.4 See_Comment [Aut omated message] The = Monocytes #) system which generated this result tra nsmitted reference range : <=0.8. The reference r denia was not used to int erpret this result as normal/abnormal . [facility] RGYQZAF5722-91-92 23:02:00 Test Item Value Reference Range Interpretation Comments BNP (test code = BNP) 52 [facility] HGQRCVW9720-69-52 23:02:00 Test Item Value Reference Range Interpretation Comments Total CK (test code = Total CK) 78 12-191 [facility] UXXNNKE9716-80-48 23:02:00 Test Item Value Reference Range Interpretation Comments HS Troponin I Baseline (test code = HS 4 Troponin I Baseline) [facility] [employer] [id number] 23:02:00 Test Item Value Reference Range Interpretation Comments Glucose Lvl (test code = Glucose Lvl) 109 70-99 [facility] [employer] AKVCI8876-67-25 23:02:00 Test Item Value Reference Range Interpretation Comments BUN (test code = BUN) 11 7-22 [facility] [employer] MBCGQ7409-05-10 23:02:00 Test Item Value Reference Range Interpretation Comments Creatinine Lvl (test code = Creatinine 0.64 0.50-1.40 Lvl) [facility] [employer] [id number] 23:02:00 Test Item Value Reference Range Interpretation Comments Sodium Lvl (test code = Sodium Lvl) 138 135-145 [facility] [employer] [id number] 23:02:00 Test Item Value Reference Range Interpretation Comments Potassium Lvl (test code = Potassium 4.1 3.5-5.1 Lvl) [facility] [employer] [id number] 23:02:00 Test Item Value Reference Range Interpretation Comments Chloride Lvl (test code = Chloride Lvl) 104 95-109 [facility] [employer] [id number] 23:02:00 Test Item Value Reference Range Interpretation Comments CO2 (test code = CO2) 30 24-32 [facility] [employer] [id number] 23:02:00 Test Item Value Reference Range Interpretation Comments Calcium Lvl (test code = Calcium Lvl) 9.1 8.5-10.5 [facility] LancasterImmunov[facility] TherapiesANG[place] [id number] 23:02:00 Test Item Value Reference Range Interpretation Comments Total Protein (test code = Total 6.7 6.4-8.4 Protein) [place] 773372-07-20 23:02:00 Test Item Value Reference Range Interpretation Comments Albumin Lvl (test code = Albumin Lvl) 3.6 3.5-5.0 [facility] [id number] 23:02:00 Test Item Value Reference Range Interpretation Comments ALT (test code = ALT) 146 See_Comment [Auto mated message] The system which ge nerated this result transmit mau reference range : <=65. The reference range was not used to interpr et this result as elaine l/abnormal. [facility] [id number] 23:02:00 Test Item Value Reference Range Interpretation Comments AST (test code = AST) 236 See_Comment [Auto mated message] The system which ge nerated this result transmit mau reference range : <=37. The reference range was not used to interpr et this result as elaine l/abnormal. [facility] [employer] [id number] 23:02:00 Test Item Value Reference Range Interpretation Comments Alk Phos (test code = Alk Phos) 157 39-136 [facility] [employer] [id number] 23:02:00 Test Item Value Reference Range Interpretation Comments Bili Total (test code = Bili Total) 0.6 0.2-1.3 [facility] [id number] 23:02:00 Test Item Value Reference Range Interpretation Comments AGAP (test code = AGAP) 8.1 10.0-20.0 [facility] [id number] 23:02:00 Test Item Value Reference Range Interpretation Comments B/C Ratio (test code = B/C Ratio) 17 1 6-25 [facility] [id number] 23:02:00 Test Item Value Reference Range Interpretation Comments Globulin (test code = Globulin) 3.1 2.7-4.2 [facility] [id number] 23:02:00 Test Item Value Reference Range Interpretation Comments A/G Ratio (test code = A/G Ratio) 1.2 1 0.7-1.6 [facility]2022-07-20 23:02:00 Test Item Value Reference Range Interpretation Comments eGFR (test code = eGFR) 102 [facility] CenterTupxkcbWAXKOHBXNT3157-00-57 23:02:00 Test Item Value Reference Range Interpretation Comments WBC (test code = WBC) 5.3 3.7-10.4 [facility] CenterLctynlvULSJWTRQEI8634-34-13 23:02:00 Test Item Value Reference Range Interpretation Comments RBC (test code = RBC) 4.13 4.20-5.40 [facility] CenterUmyszyzLTPOWFMLGF7675-98-81 23:02:00 Test Item Value Reference Range Interpretation Comments Hgb (test code = Hgb) 14.5 12.0-16.0 [place] 682882-07-20 23:02:00 Test Item Value Reference Range Interpretation Comments Hct (test code = Hct) 42.0 36.0-48.0 [facility] CenterYqylynxLWDWBYPVGY4811-06-13 23:02:00 Test Item Value Reference Range Interpretation Comments MCV (test code = MCV) 101.7 80.0-98.0 [facility] CenterTidagutMSQHVQWUDA9595-29-48 23:02:00 Test Item Value Reference Range Interpretation Comments MCH (test code = MCH) 35.0 pg 27.0-31.0 [facility] CenterYshiztmHWIYKENDNL8307-36-49 23:02:00 Test Item Value Reference Range Interpretation Comments MCHC (test code = MCHC) 34.4 32.0-36.0 [facility] CenterHhzgzaiOLIRWAYWJJ6255-73-73 23:02:00 Test Item Value Reference Range Interpretation Comments RDW (test code = RDW) 16.0 11.5-14.5 [facility] CenterHbqeqvcGLTAWVOMXD9689-19-67 23:02:00 Test Item Value Reference Range Interpretation Comments Platelet (test code = Platelet) 135 133-450 [facility] CenterJmeiunkEITBPTSYEZ6928-08-09 23:02:00 Test Item Value Reference Range Interpretation Comments MPV (test code = MPV) 8.1 7.4-10.4 [place] 682882-07-20 23:02:00 Test Item Value Reference Range Interpretation Comments Segs (test code = Segs) 66.7 45.0-75.0 [facility] CenterJmuwqjbMYLYTVAWSC8655-47-63 23:02:00 Test Item Value Reference Range Interpretation Comments Lymphocytes (test code = Lymphocytes) 24.6 20.0-40.0 [facility] LancasterMhxsrdaKTCNDSQAPV5743-28-57 23:02:00 Test Item Value Reference Range Interpretation Comments Monocytes (test code = Monocytes) 7.0 2.0-12.0 [facility] LancasterPrxfsowCLFIWKXDPZ8798-89-86 23:02:00 Test Item Value Reference Range Interpretation Comments Eosinophils (test code = 0.8 See_Comment [A utomated message] The Eosinophils) system which ge nerated this result tra nsmitted reference range : <=4.0. The reference r denia was not used to int erpret this result as normal/abnormal . [facility] LancasterIyczctfCRFGOHXVPJ8971-57-21 23:02:00 Test Item Value Reference Range Interpretation Comments Basophils (test code = 0.9 See_Comment [Aut omated message] The Basophils) system which ge nerated this result tra nsmitted reference range : <=1.0. The reference r denia was not used to int erpret this result as normal/abnormal . [facility] Lancast[id number] 23:02:00 Test Item Value Reference Range Interpretation Comments Neutrophils # (test code = Neutrophils 3.5 1.5-8.1 #) [facility] La[id number] 23:02:00 Test Item Value Reference Range Interpretation Comments Lymphocytes # (test code = Lymphocytes 1.3 1.0-5.5 #) [facility] LancasterIycewlpICOQDGRBUQ2073-37-91 23:02:00 Test Item Value Reference Range Interpretation Comments Monocytes # (test code 0.4 See_Comment [Aut omated message] The = Monocytes #) system which generated this result tra nsmitted reference range : <=0.8. The reference r denia was not used to int erpret this result as normal/abnormal . [facility] OnyvaxCARDIAC [id number] 23:02:00 Test Item Value Reference Range Interpretation Comments BNP (test code = BNP) 52 [facility] LancasterImmunovative TherapiesCARNezasaAC [id number] 23:02:00 Test Item Value Reference Range Interpretation Comments Total CK (test code = Total CK) 78 12-191 [facility] LancasterBest DoctorsAC [id number] 23:02:00 Test Item Value Reference Range Interpretation Comments HS Troponin I Baseline (test code = HS 4 Troponin I Baseline) [place] 773372-07-20 23:02:00 Test Item Value Reference Range Interpretation Comments Glucose Lvl (test code = Glucose Lvl) 109 70-99 [place] 773372-07-20 23:02:00 Test Item Value Reference Range Interpretation Comments BUN (test code = BUN) 11 7-22 [place] 773372-07-20 23:02:00 Test Item Value Reference Range Interpretation Comments Creatinine Lvl (test code = Creatinine 0.64 0.50-1.40 Lvl) [place] 773372-07-20 23:02:00 Test Item Value Reference Range Interpretation Comments Sodium Lvl (test code = Sodium Lvl) 138 135-145 [place] 773372-07-20 23:02:00 Test Item Value Reference Range Interpretation Comments Potassium Lvl (test code = Potassium 4.1 3.5-5.1 Lvl) [place] 773372-07-20 23:02:00 Test Item Value Reference Range Interpretation Comments Chloride Lvl (test code = Chloride Lvl) 104 95-109 [place] 773372-07-20 23:02:00 Test Item Value Reference Range Interpretation Comments CO2 (test code = CO2) 30 24-32 [place] 773372-07-20 23:02:00 Test Item Value Reference Range Interpretation Comments Calcium Lvl (test code = Calcium Lvl) 9.1 8.5-10.5 [place] 773372-07-20 23:02:00 Test Item Value Reference Range Interpretation Comments Total Protein (test code = Total 6.7 6.4-8.4 Protein) [place] 773372-07-20 23:02:00 Test Item Value Reference Range Interpretation Comments Albumin Lvl (test code = Albumin Lvl) 3.6 3.5-5.0 [place] 773372-07-20 23:02:00 Test Item Value Reference Range Interpretation Comments ALT (test code = ALT) 146 See_Comment [Auto mated message] The system which ge nerated this result transmit mau reference range : <=65. The reference range was not used to interpr et this result as elaine l/abnormal. [place] 773372-07-20 23:02:00 Test Item Value Reference Range Interpretation Comments AST (test code = AST) 236 See_Comment [Auto mated message] The system which ge nerated this result transmit mau reference range : <=37. The reference range was not used to interpr et this result as elaine l/abnormal. [facility] CenterC[facility] [id number] 23:02:00 Test Item Value Reference Range Interpretation Comments Alk Phos (test code = Alk Phos) 157 39-136 [facility]2022-07-20 23:02:00 Test Item Value Reference Range Interpretation Comments Bili Total (test code = Bili Total) 0.6 0.2-1.3 [facility]2022-07-20 23:02:00 Test Item Value Reference Range Interpretation Comments AGAP (test code = AGAP) 8.1 10.0-20.0 [facility]2022-07-20 23:02:00 Test Item Value Reference Range Interpretation Comments B/C Ratio (test code = B/C Ratio) 17 1 6-25 [facility]2022-07-20 23:02:00 Test Item Value Reference Range Interpretation Comments Globulin (test code = Globulin) 3.1 2.7-4.2 [facility] CenterC[facility] [id number] 23:02:00 Test Item Value Reference Range Interpretation Comments A/G Ratio (test code = A/G Ratio) 1.2 1 0.7-1.6 [facility]2022-07-20 23:02:00 Test Item Value Reference Range Interpretation Comments eGFR (test code = eGFR) 102 [facility] CenterLmwaprpFFMMBRACOM7833-33-03 23:02:00 Test Item Value Reference Range Interpretation Comments WBC (test code = WBC) 5.3 3.7-10.4 [place] 682882-07-20 23:02:00 Test Item Value Reference Range Interpretation Comments RBC (test code = RBC) 4.13 4.20-5.40 [place] 682882-07-20 23:02:00 Test Item Value Reference Range Interpretation Comments Hgb (test code = Hgb) 14.5 12.0-16.0 [place] 682882-07-20 23:02:00 Test Item Value Reference Range Interpretation Comments Hct (test code = Hct) 42.0 36.0-48.0 [place] 682882-07-20 23:02:00 Test Item Value Reference Range Interpretation Comments MCV (test code = MCV) 101.7 80.0-98.0 [place] 682882-07-20 23:02:00 Test Item Value Reference Range Interpretation Comments MCH (test code = MCH) 35.0 pg 27.0-31.0 [place] 682882-07-20 23:02:00 Test Item Value Reference Range Interpretation Comments MCHC (test code = MCHC) 34.4 32.0-36.0 [place] 682882-07-20 23:02:00 Test Item Value Reference Range Interpretation Comments RDW (test code = RDW) 16.0 11.5-14.5 [place] 682882-07-20 23:02:00 Test Item Value Reference Range Interpretation Comments Platelet (test code = Platelet) 135 133-450 [place] 682882-07-20 23:02:00 Test Item Value Reference Range Interpretation Comments MPV (test code = MPV) 8.1 7.4-10.4 [place] 682882-07-20 23:02:00 Test Item Value Reference Range Interpretation Comments Segs (test code = Segs) 66.7 45.0-75.0 [place] 682882-07-20 23:02:00 Test Item Value Reference Range Interpretation Comments Lymphocytes (test code = Lymphocytes) 24.6 20.0-40.0 [place] 682882-07-20 23:02:00 Test Item Value Reference Range Interpretation Comments Monocytes (test code = Monocytes) 7.0 2.0-12.0 [place] 682882-07-20 23:02:00 Test Item Value Reference Range Interpretation Comments Eosinophils (test code = 0.8 See_Comment [A utomated message] The Eosinophils) system which ge nerated this result tra nsmitted reference range : <=4.0. The reference r denia was not used to int erpret this result as normal/abnormal . [place] 682882-07-20 23:02:00 Test Item Value Reference Range Interpretation Comments Basophils (test code = 0.9 See_Comment [Aut omated message] The Basophils) system which ge nerated this result tra nsmitted reference range : <=1.0. The reference r denia was not used to int erpret this result as normal/abnormal . [facility] CenterMbxcsahDVLUGYQZQS7722-36-01 23:02:00 Test Item Value Reference Range Interpretation Comments Neutrophils # (test code = Neutrophils 3.5 1.5-8.1 #) [facility] CenterDcfdtroOZZGQNHDVU8533-73-69 23:02:00 Test Item Value Reference Range Interpretation Comments Lymphocytes # (test code = Lymphocytes 1.3 1.0-5.5 #) [facility] CenterZvsrjusMEKLVXLCSS1866-72-74 23:02:00 Test Item Value Reference Range Interpretation Comments Monocytes # (test code 0.4 See_Comment [Aut omated message] The = Monocytes #) system which generated this result tra nsmitted reference range : <=0.8. The reference r denia was not used to int erpret this result as normal/abnormal . [facility] LancasterUpptalk [id number] 23:02:00 Test Item Value Reference Range Interpretation Comments BNP (test code = BNP) 52 [facility] CenterFortyCloudVLWWONG2860-28-83 23:02:00 Test Item Value Reference Range Interpretation Comments Total CK (test code = Total CK) 78 12-191 [facility] CenterFortyCloudRJOMDJI6932-86-21 23:02:00 Test Item Value Reference Range Interpretation Comments HS Troponin I Baseline (test code = HS 4 Troponin I Baseline) [facility] [id number] 23:02:00 Test Item Value Reference Range Interpretation Comments Glucose Lvl (test code = Glucose Lvl) 109 70-99 [facility] [id number] 23:02:00 Test Item Value Reference Range Interpretation Comments BUN (test code = BUN) 11 7-22 [facility] [id number] 23:02:00 Test Item Value Reference Range Interpretation Comments Creatinine Lvl (test code = Creatinine 0.64 0.50-1.40 Lvl) [facility] [id number] 23:02:00 Test Item Value Reference Range Interpretation Comments Sodium Lvl (test code = Sodium Lvl) 138 135-145 [facility] [id number] 23:02:00 Test Item Value Reference Range Interpretation Comments Potassium Lvl (test code = Potassium 4.1 3.5-5.1 Lvl) [facility] [id number] 23:02:00 Test Item Value Reference Range Interpretation Comments Chloride Lvl (test code = Chloride Lvl) 104 95-109 [facility] [employer] [id number] 23:02:00 Test Item Value Reference Range Interpretation Comments CO2 (test code = CO2) 30 24-32 [facility] [id number] 23:02:00 Test Item Value Reference Range Interpretation Comments Calcium Lvl (test code = Calcium Lvl) 9.1 8.5-10.5 [facility] [employer] [id number] 23:02:00 Test Item Value Reference Range Interpretation Comments Total Protein (test code = Total 6.7 6.4-8.4 Protein) [facility] [id number] 23:02:00 Test Item Value Reference Range Interpretation Comments Albumin Lvl (test code = Albumin Lvl) 3.6 3.5-5.0 [facility] [id number] 23:02:00 Test Item Value Reference Range Interpretation Comments ALT (test code = ALT) 146 See_Comment [Auto mated message] The system which ge nerated this result transmit mau reference range : <=65. The reference range was not used to interpr et this result as elaine l/abnormal. [facility] [employer] [id number] 23:02:00 Test Item Value Reference Range Interpretation Comments AST (test code = AST) 236 See_Comment [Auto mated message] The system which ge nerated this result transmit mau reference range : <=37. The reference range was not used to interpr et this result as elaine l/abnormal. [facility] [employer] [id number] 23:02:00 Test Item Value Reference Range Interpretation Comments Alk Phos (test code = Alk Phos) 157 39-136 [facility] [employer] [id number] 23:02:00 Test Item Value Reference Range Interpretation Comments Bili Total (test code = Bili Total) 0.6 0.2-1.3 [facility] [employer] [id number] 23:02:00 Test Item Value Reference Range Interpretation Comments AGAP (test code = AGAP) 8.1 10.0-20.0 [facility] [employer] [id number] 23:02:00 Test Item Value Reference Range Interpretation Comments B/C Ratio (test code = B/C Ratio) 17 1 6-25 [facility]2022-07-20 23:02:00 Test Item Value Reference Range Interpretation Comments Globulin (test code = Globulin) 3.1 2.7-4.2 [facility]2022-07-20 23:02:00 Test Item Value Reference Range Interpretation Comments A/G Ratio (test code = A/G Ratio) 1.2 1 0.7-1.6 [facility]2022-07-20 23:02:00 Test Item Value Reference Range Interpretation Comments eGFR (test code = eGFR) 102 [facility] CenterKgtzrlkZMPSKOSFJW0779-78-99 23:02:00 Test Item Value Reference Range Interpretation Comments WBC (test code = WBC) 5.3 3.7-10.4 [facility] CenterDpsxgkfNYFDBIGVYW4067-28-76 23:02:00 Test Item Value Reference Range Interpretation Comments RBC (test code = RBC) 4.13 4.20-5.40 [facility] CenterRqsjfhpCZPTSNJXTF5259-23-96 23:02:00 Test Item Value Reference Range Interpretation Comments Hgb (test code = Hgb) 14.5 12.0-16.0 [facility] CenterLpabswvWEUODWROHJ1099-69-59 23:02:00 Test Item Value Reference Range Interpretation Comments Hct (test code = Hct) 42.0 36.0-48.0 [facility] CenterCefoleqRTUDZIXHXJ8367-60-20 23:02:00 Test Item Value Reference Range Interpretation Comments MCV (test code = MCV) 101.7 80.0-98.0 [facility] CenterKqqbpbtYMSNAXUXOU0686-43-40 23:02:00 Test Item Value Reference Range Interpretation Comments MCH (test code = MCH) 35.0 pg 27.0-31.0 [facility] CenterFvjliivCSBNKXXHBI6128-40-06 23:02:00 Test Item Value Reference Range Interpretation Comments MCHC (test code = MCHC) 34.4 32.0-36.0 [facility] CenterKndmjhlLBQBADMIDV5668-95-52 23:02:00 Test Item Value Reference Range Interpretation Comments RDW (test code = RDW) 16.0 11.5-14.5 [facility] CenterIbxuqfvCXULOJDJPI4519-64-30 23:02:00 Test Item Value Reference Range Interpretation Comments Platelet (test code = Platelet) 135 133-450 [facility] CenterEvwgwwpKXSGELANGW2615-06-96 23:02:00 Test Item Value Reference Range Interpretation Comments MPV (test code = MPV) 8.1 7.4-10.4 [facility] CenterFjkxymtQPTHLNXWKP9973-69-07 23:02:00 Test Item Value Reference Range Interpretation Comments Segs (test code = Segs) 66.7 45.0-75.0 [facility] CenterTrgiuccZNONKGOHMD1720-04-80 23:02:00 Test Item Value Reference Range Interpretation Comments Lymphocytes (test code = Lymphocytes) 24.6 20.0-40.0 [facility] CenterUffykdeDJTAOAYNFD9613-43-56 23:02:00 Test Item Value Reference Range Interpretation Comments Monocytes (test code = Monocytes) 7.0 2.0-12.0 [facility] CenterCrxpadqZIOCDNASGD2101-96-80 23:02:00 Test Item Value Reference Range Interpretation Comments Eosinophils (test code = 0.8 See_Comment [A utomated message] The Eosinophils) system which ge nerated this result tra nsmitted reference range : <=4.0. The reference r denia was not used to int erpret this result as normal/abnormal . [facility] CenterHnjkkcoCAXBOHOHVT1514-30-44 23:02:00 Test Item Value Reference Range Interpretation Comments Basophils (test code = 0.9 See_Comment [Aut omated message] The Basophils) system which ge nerated this result tra nsmitted reference range : <=1.0. The reference r denia was not used to int erpret this result as normal/abnormal . [facility] CenterHzgccmmHYTHDYQRSJ3633-53-28 23:02:00 Test Item Value Reference Range Interpretation Comments Neutrophils # (test code = Neutrophils 3.5 1.5-8.1 #) [facility] CenterUslkcsrSGWKZTYPSA0896-78-01 23:02:00 Test Item Value Reference Range Interpretation Comments Lymphocytes # (test code = Lymphocytes 1.3 1.0-5.5 #) [facility] CenterWghpkmjNVOPQHNHVG7553-82-10 23:02:00 Test Item Value Reference Range Interpretation Comments Monocytes # (test code 0.4 See_Comment [Aut omated message] The = Monocytes #) system which generated this result tra nsmitted reference range : <=0.8. The reference r denia was not used to int erpret this result as normal/abnormal . [facility] CenterCARDIAC [id number] 23:02:00 Test Item Value Reference Range Interpretation Comments BNP (test code = BNP) 52 [facility] CenterLFR Communications, [employer] [id number] 23:02:00 Test Item Value Reference Range Interpretation Comments Total CK (test code = Total CK) 78 12-191 [facility] [id number] 23:02:00 Test Item Value Reference Range Interpretation Comments HS Troponin I Baseline (test code = HS 4 Troponin I Baseline) [facility] [id number] 23:02:00 Test Item Value Reference Range Interpretation Comments Glucose Lvl (test code = Glucose Lvl) 109 70-99 [facility] [id number] 23:02:00 Test Item Value Reference Range Interpretation Comments BUN (test code = BUN) 11 7-22 [facility] [id number] 23:02:00 Test Item Value Reference Range Interpretation Comments Creatinine Lvl (test code = Creatinine 0.64 0.50-1.40 Lvl) [facility] [id number] 23:02:00 Test Item Value Reference Range Interpretation Comments Sodium Lvl (test code = Sodium Lvl) 138 135-145 [facility] [employer] [id number] 23:02:00 Test Item Value Reference Range Interpretation Comments Potassium Lvl (test code = Potassium 4.1 3.5-5.1 Lvl) [facility] [employer] [id number] 23:02:00 Test Item Value Reference Range Interpretation Comments Chloride Lvl (test code = Chloride Lvl) 104 95-109 [facility] [id number] 23:02:00 Test Item Value Reference Range Interpretation Comments CO2 (test code = CO2) 30 24-32 [facility] [employer] [id number] 23:02:00 Test Item Value Reference Range Interpretation Comments Calcium Lvl (test code = Calcium Lvl) 9.1 8.5-10.5 [facility] [employer] [id number] 23:02:00 Test Item Value Reference Range Interpretation Comments Total Protein (test code = Total 6.7 6.4-8.4 Protein) [facility] [id number] 23:02:00 Test Item Value Reference Range Interpretation Comments Albumin Lvl (test code = Albumin Lvl) 3.6 3.5-5.0 [facility] [employer] [id number] 23:02:00 Test Item Value Reference Range Interpretation Comments ALT (test code = ALT) 146 See_Comment [Auto mated message] The system which ge nerated this result transmit mau reference range : <=65. The reference range was not used to interpr et this result as elaine l/abnormal. [facility] CenterCins[facility] [id number] 23:02:00 Test Item Value Reference Range Interpretation Comments AST (test code = AST) 236 See_Comment [Auto mated message] The system which ge nerated this result transmit mau reference range : <=37. The reference range was not used to interpr et this result as elaine l/abnormal. [facility] [id number] 23:02:00 Test Item Value Reference Range Interpretation Comments Alk Phos (test code = Alk Phos) 157 39-136 [facility] CenterC[facility] [id number] 23:02:00 Test Item Value Reference Range Interpretation Comments Bili Total (test code = Bili Total) 0.6 0.2-1.3 [facility] [id number] 23:02:00 Test Item Value Reference Range Interpretation Comments AGAP (test code = AGAP) 8.1 10.0-20.0 [facility] [id number] 23:02:00 Test Item Value Reference Range Interpretation Comments B/C Ratio (test code = B/C Ratio) 17 1 6-25 [facility] [id number] 23:02:00 Test Item Value Reference Range Interpretation Comments Globulin (test code = Globulin) 3.1 2.7-4.2 [facility] [id number] 23:02:00 Test Item Value Reference Range Interpretation Comments A/G Ratio (test code = A/G Ratio) 1.2 1 0.7-1.6 [facility] [id number] 23:02:00 Test Item Value Reference Range Interpretation Comments eGFR (test code = eGFR) 102 [place] 682882-07-20 23:02:00 Test Item Value Reference Range Interpretation Comments WBC (test code = WBC) 5.3 3.7-10.4 [facility] CenterGxzrjgcCKYOMLYBFA4296-88-59 23:02:00 Test Item Value Reference Range Interpretation Comments RBC (test code = RBC) 4.13 4.20-5.40 [facility] CenterZjwglfnXNOTRXFTCW2694-54-07 23:02:00 Test Item Value Reference Range Interpretation Comments Hgb (test code = Hgb) 14.5 12.0-16.0 [place] 682882-07-20 23:02:00 Test Item Value Reference Range Interpretation Comments Hct (test code = Hct) 42.0 36.0-48.0 [facility] CenterIskipwfJRKVVQHJRF6205-97-97 23:02:00 Test Item Value Reference Range Interpretation Comments MCV (test code = MCV) 101.7 80.0-98.0 [facility] CenterHruojblZRPXSMIVJU8469-39-53 23:02:00 Test Item Value Reference Range Interpretation Comments MCH (test code = MCH) 35.0 pg 27.0-31.0 [facility] CenterKrexxfjKBSGDDFVVR1507-46-33 23:02:00 Test Item Value Reference Range Interpretation Comments MCHC (test code = MCHC) 34.4 32.0-36.0 [facility] CenterRndhvnzADFLMTSDZR4467-39-57 23:02:00 Test Item Value Reference Range Interpretation Comments RDW (test code = RDW) 16.0 11.5-14.5 [facility] CenterTfjbuxpZMNEYOLIZX2148-46-07 23:02:00 Test Item Value Reference Range Interpretation Comments Platelet (test code = Platelet) 135 133-450 [facility] CenterTehsalfTJTAXNONXY2654-17-58 23:02:00 Test Item Value Reference Range Interpretation Comments MPV (test code = MPV) 8.1 7.4-10.4 [facility] CenterWeunuweUPEZIXMPHQ2904-46-87 23:02:00 Test Item Value Reference Range Interpretation Comments Segs (test code = Segs) 66.7 45.0-75.0 [facility] CenterXaehuyyVXVCTJKAAN6309-47-73 23:02:00 Test Item Value Reference Range Interpretation Comments Lymphocytes (test code = Lymphocytes) 24.6 20.0-40.0 [facility] CenterTujakgmYHAMHJKBGF5868-12-19 23:02:00 Test Item Value Reference Range Interpretation Comments Monocytes (test code = Monocytes) 7.0 2.0-12.0 [facility] CenterCfxawtpTOJSSKJSZE0585-61-62 23:02:00 Test Item Value Reference Range Interpretation Comments Eosinophils (test code = 0.8 See_Comment [A utomated message] The Eosinophils) system which ge nerated this result tra nsmitted reference range : <=4.0. The reference r denia was not used to int erpret this result as normal/abnormal . [facility] GfzgtdfVSGNPZKWQU1428-13-14 23:02:00 Test Item Value Reference Range Interpretation Comments Basophils (test code = 0.9 See_Comment [Aut omated message] The Basophils) system which ge nerated this result tra nsmitted reference range : <=1.0. The reference r denia was not used to int erpret this result as normal/abnormal . [facility] [id number] 23:02:00 Test Item Value Reference Range Interpretation Comments Neutrophils # (test code = Neutrophils 3.5 1.5-8.1 #) [facility] LancasterHsrrkebKRQAJQPPHC3082-46-46 23:02:00 Test Item Value Reference Range Interpretation Comments Lymphocytes # (test code = Lymphocytes 1.3 1.0-5.5 #) [facility] LancasterFwdtzmvZUDWEQXPWA6296-48-66 23:02:00 Test Item Value Reference Range Interpretation Comments Monocytes # (test code 0.4 See_Comment [Aut omated message] The = Monocytes #) system which generated this result tra nsmitted reference range : <=0.8. The reference r denia was not used to int erpret this result as normal/abnormal . [facility] [employer] [id number] 23:02:00 Test Item Value Reference Range Interpretation Comments BNP (test code = BNP) 52 [facility] LancasterAppShare2022-07-20 23:02:00 Test Item Value Reference Range Interpretation Comments Total CK (test code = Total CK) 78 12-191 [facility]2022-07-20 23:02:00 Test Item Value Reference Range Interpretation Comments HS Troponin I Baseline (test code = HS 4 Troponin I Baseline) [facility] [employer] [id number] 23:02:00 Test Item Value Reference Range Interpretation Comments Glucose Lvl (test code = Glucose Lvl) 109 70-99 [facility] [employer] [id number] 23:02:00 Test Item Value Reference Range Interpretation Comments BUN (test code = BUN) 11 7-22 [facility] [employer] [id number] 23:02:00 Test Item Value Reference Range Interpretation Comments Creatinine Lvl (test code = Creatinine 0.64 0.50-1.40 Lvl) [place] 773372-07-20 23:02:00 Test Item Value Reference Range Interpretation Comments Sodium Lvl (test code = Sodium Lvl) 138 135-145 [place] 773372-07-20 23:02:00 Test Item Value Reference Range Interpretation Comments Potassium Lvl (test code = Potassium 4.1 3.5-5.1 Lvl) [place] 773372-07-20 23:02:00 Test Item Value Reference Range Interpretation Comments Chloride Lvl (test code = Chloride Lvl) 104 95-109 [place] 773372-07-20 23:02:00 Test Item Value Reference Range Interpretation Comments CO2 (test code = CO2) 30 24-32 [place] 773372-07-20 23:02:00 Test Item Value Reference Range Interpretation Comments Calcium Lvl (test code = Calcium Lvl) 9.1 8.5-10.5 [place] 773372-07-20 23:02:00 Test Item Value Reference Range Interpretation Comments Total Protein (test code = Total 6.7 6.4-8.4 Protein) [place] 773372-07-20 23:02:00 Test Item Value Reference Range Interpretation Comments Albumin Lvl (test code = Albumin Lvl) 3.6 3.5-5.0 [place] 773372-07-20 23:02:00 Test Item Value Reference Range Interpretation Comments ALT (test code = ALT) 146 See_Comment [Auto mated message] The system which ge nerated this result transmit mau reference range : <=65. The reference range was not used to interpr et this result as elaine l/abnormal. [place] 773372-07-20 23:02:00 Test Item Value Reference Range Interpretation Comments AST (test code = AST) 236 See_Comment [Auto mated message] The system which ge nerated this result transmit mau reference range : <=37. The reference range was not used to interpr et this result as elaine l/abnormal. [place] 773372-07-20 23:02:00 Test Item Value Reference Range Interpretation Comments Alk Phos (test code = Alk Phos) 157 39-136 [facility] CenterC[facility] [id number] 23:02:00 Test Item Value Reference Range Interpretation Comments Bili Total (test code = Bili Total) 0.6 0.2-1.3 [facility]2022-07-20 23:02:00 Test Item Value Reference Range Interpretation Comments AGAP (test code = AGAP) 8.1 10.0-20.0 [place] 773372-07-20 23:02:00 Test Item Value Reference Range Interpretation Comments B/C Ratio (test code = B/C Ratio) 17 1 6-25 [place] 773372-07-20 23:02:00 Test Item Value Reference Range Interpretation Comments Globulin (test code = Globulin) 3.1 2.7-4.2 [place] 773372-07-20 23:02:00 Test Item Value Reference Range Interpretation Comments A/G Ratio (test code = A/G Ratio) 1.2 1 0.7-1.6 [place] 773372-07-20 23:02:00 Test Item Value Reference Range Interpretation Comments eGFR (test code = eGFR) 102 [facility] CenterUshkakoGABFESDKVZ6885-69-05 23:02:00 Test Item Value Reference Range Interpretation Comments WBC (test code = WBC) 5.3 3.7-10.4 [place] 682882-07-20 23:02:00 Test Item Value Reference Range Interpretation Comments RBC (test code = RBC) 4.13 4.20-5.40 [place] 682882-07-20 23:02:00 Test Item Value Reference Range Interpretation Comments Hgb (test code = Hgb) 14.5 12.0-16.0 [place] 682882-07-20 23:02:00 Test Item Value Reference Range Interpretation Comments Hct (test code = Hct) 42.0 36.0-48.0 [place] 682882-07-20 23:02:00 Test Item Value Reference Range Interpretation Comments MCV (test code = MCV) 101.7 80.0-98.0 [place] 682882-07-20 23:02:00 Test Item Value Reference Range Interpretation Comments MCH (test code = MCH) 35.0 pg 27.0-31.0 [place] 682882-07-20 23:02:00 Test Item Value Reference Range Interpretation Comments MCHC (test code = MCHC) 34.4 32.0-36.0 [place] 682882-07-20 23:02:00 Test Item Value Reference Range Interpretation Comments RDW (test code = RDW) 16.0 11.5-14.5 [place] 682882-07-20 23:02:00 Test Item Value Reference Range Interpretation Comments Platelet (test code = Platelet) 135 133-450 [facility] CenterApkxpryULARRMWOYQ6751-40-33 23:02:00 Test Item Value Reference Range Interpretation Comments MPV (test code = MPV) 8.1 7.4-10.4 [place] 682882-07-20 23:02:00 Test Item Value Reference Range Interpretation Comments Segs (test code = Segs) 66.7 45.0-75.0 [place] 682882-07-20 23:02:00 Test Item Value Reference Range Interpretation Comments Lymphocytes (test code = Lymphocytes) 24.6 20.0-40.0 [facility] CenterLjzphdwQGDZOBSOCX8616-80-86 23:02:00 Test Item Value Reference Range Interpretation Comments Monocytes (test code = Monocytes) 7.0 2.0-12.0 [facility] CenterDjusljoAIRBBMGYZN1616-55-36 23:02:00 Test Item Value Reference Range Interpretation Comments Eosinophils (test code = 0.8 See_Comment [A utomated message] The Eosinophils) system which ge nerated this result tra nsmitted reference range : <=4.0. The reference r denia was not used to int erpret this result as normal/abnormal . [facility] CenterMvcrwerIMEJARCIMP7128-28-94 23:02:00 Test Item Value Reference Range Interpretation Comments Basophils (test code = 0.9 See_Comment [Aut omated message] The Basophils) system which ge nerated this result tra nsmitted reference range : <=1.0. The reference r denia was not used to int erpret this result as normal/abnormal . [facility] CenterKtatyzwILQNJFVIVV5458-48-19 23:02:00 Test Item Value Reference Range Interpretation Comments Neutrophils # (test code = Neutrophils 3.5 1.5-8.1 #) [facility] CenterQszdcnbBZLCDJSUAV0903-28-21 23:02:00 Test Item Value Reference Range Interpretation Comments Lymphocytes # (test code = Lymphocytes 1.3 1.0-5.5 #) [facility] CenterEszsspyXTAEHIYSPE8465-65-42 23:02:00 Test Item Value Reference Range Interpretation Comments Monocytes # (test code 0.4 See_Comment [Aut omated message] The = Monocytes #) system which generated this result tra nsmitted reference range : <=0.8. The reference r denia was not used to int erpret this result as normal/abnormal . [facility] [employer] ApSannGLODIAC [id number] 23:02:00 Test Item Value Reference Range Interpretation Comments BNP (test code = BNP) 52 [facility] [employer] ApSannGLODIAC [id number] 23:02:00 Test Item Value Reference Range Interpretation Comments Total CK (test code = Total CK) 78 12-191 [facility] [employer] [id number] 23:02:00 Test Item Value Reference Range Interpretation Comments HS Troponin I Baseline (test code = HS 4 Troponin I Baseline) [facility] LancasterannCARNezasaAC [id number] 23:02:00 Test Item Value Reference Range Interpretation Comments BNP (test code = BNP) 52 [facility] [employer] ApSannLFR Communications, IncAC [id number] 23:02:00 Test Item Value Reference Range Interpretation Comments Total CK (test code = Total CK) 78 12-191 [facility] LancasterBest DoctorsAC [id number] 23:02:00 Test Item Value Reference Range Interpretation Comments HS Troponin I Baseline (test code = HS 4 Troponin I Baseline) [facility] [employer] [id number] 23:02:00 Test Item Value Reference Range Interpretation Comments Glucose Lvl (test code = Glucose Lvl) 109 70-99 [facility] [employer] [id number] 23:02:00 Test Item Value Reference Range Interpretation Comments Glucose Lvl (test code = Glucose Lvl) 109 70-99 [facility] [employer] [id number] 23:02:00 Test Item Value Reference Range Interpretation Comments BUN (test code = BUN) 11 7-22 [facility] [employer] [id number] 23:02:00 Test Item Value Reference Range Interpretation Comments Creatinine Lvl (test code = Creatinine 0.64 0.50-1.40 Lvl) [facility] [employer] [id number] 23:02:00 Test Item Value Reference Range Interpretation Comments Sodium Lvl (test code = Sodium Lvl) 138 135-145 [facility] [employer] [id number] 23:02:00 Test Item Value Reference Range Interpretation Comments Potassium Lvl (test code = Potassium 4.1 3.5-5.1 Lvl) [place] 773372-07-20 23:02:00 Test Item Value Reference Range Interpretation Comments Chloride Lvl (test code = Chloride Lvl) 104 95-109 [place] 773372-07-20 23:02:00 Test Item Value Reference Range Interpretation Comments CO2 (test code = CO2) 30 24-32 [place] 773372-07-20 23:02:00 Test Item Value Reference Range Interpretation Comments Calcium Lvl (test code = Calcium Lvl) 9.1 8.5-10.5 [place] 773372-07-20 23:02:00 Test Item Value Reference Range Interpretation Comments Total Protein (test code = Total 6.7 6.4-8.4 Protein) [place] 773372-07-20 23:02:00 Test Item Value Reference Range Interpretation Comments Albumin Lvl (test code = Albumin Lvl) 3.6 3.5-5.0 [place] 773372-07-20 23:02:00 Test Item Value Reference Range Interpretation Comments ALT (test code = ALT) 146 See_Comment [Auto mated message] The system which ge nerated this result transmit mau reference range : <=65. The reference range was not used to interpr et this result as elaine l/abnormal. [place] 773372-07-20 23:02:00 Test Item Value Reference Range Interpretation Comments BUN (test code = BUN) 11 7-22 [place] 773372-07-20 23:02:00 Test Item Value Reference Range Interpretation Comments AST (test code = AST) 236 See_Comment [Auto mated message] The system which ge nerated this result transmit mau reference range : <=37. The reference range was not used to interpr et this result as elaine l/abnormal. [facility] [id number] 23:02:00 Test Item Value Reference Range Interpretation Comments Alk Phos (test code = Alk Phos) 157 39-136 [facility] [id number] 23:02:00 Test Item Value Reference Range Interpretation Comments Bili Total (test code = Bili Total) 0.6 0.2-1.3 [facility]2022-07-20 23:02:00 Test Item Value Reference Range Interpretation Comments AGAP (test code = AGAP) 8.1 10.0-20.0 [facility]2022-07-20 23:02:00 Test Item Value Reference Range Interpretation Comments B/C Ratio (test code = B/C Ratio) 17 1 6-25 [place] 773372-07-20 23:02:00 Test Item Value Reference Range Interpretation Comments Globulin (test code = Globulin) 3.1 2.7-4.2 [facility]2022-07-20 23:02:00 Test Item Value Reference Range Interpretation Comments A/G Ratio (test code = A/G Ratio) 1.2 1 0.7-1.6 [facility]2022-07-20 23:02:00 Test Item Value Reference Range Interpretation Comments eGFR (test code = eGFR) 102 [facility] CenterQfnsngqKOAHJXUOJV8512-81-09 23:02:00 Test Item Value Reference Range Interpretation Comments WBC (test code = WBC) 5.3 3.7-10.4 [place] 682882-07-20 23:02:00 Test Item Value Reference Range Interpretation Comments RBC (test code = RBC) 4.13 4.20-5.40 [facility]
[2022-11-06 21:12] LABS: Specific Gravity 1.005 (1.005-1.030); Urine Bacteria <20 /HPF (<20); Urine Bilirubin NEGATIVE (Negative); Urine Blood Trace (Negative); Urine Clarity Clear (Clear); Urine Color Light-Yellow (Yellow); Urine Glucose NEGATIVE (Negative); Urine Mucus Slight /HPF (None Seen); Urine Protein NEGATIVE (Negative); Urine RBC <5 /HPF (None Seen); Urine Urobilinogen Normal (Normal)
[2022-11-06 21:39] LABS: SARS-COV-2 RT PCR NEGATIVE (NEGATIVE)
--- NOTE | 2022-11-06 21:45 | ER ---
Nurse's Notes [facility] Name: Faustina Rosa Age: 61 yrs Sex: Female : 1960 Arrival Date: 11/06/2022 Time: 20:27 Bed 14 Private MD: Diagnosis: Fever, unspecified;Myalgia;Diarrhea, unspecified Presentation: 11/06 20:32 Chief complaint: Patient states: I have bee having a fever that has been bothering me ha1 for the past few days. Also, I have a headache and I feel like my head is going to explode. Coronavirus screen: Vaccine status: Patient reports receiving the 2nd dose of the covid vaccine. [place]. Ebola Screen: No symptoms or risks identified at this time. Initial Sepsis Screen: Does the patient meet any 2 criteria? No. Patient's initial sepsis screen is negative. Does the patient have a suspected source of infection? No. Patient's initial sepsis screen is negative. Risk Assessment: Do you want to hurt yourself or someone else? Patient reports no desire to harm self or others. Onset of symptoms was November 06, 2022. 20:32 Method Of Arrival: Ambulatory ha1 20:32 Acuity: JB 4 ha1 Triage Assessment: 20:37 General: Appears comfortable, Behavior is calm, cooperative. Pain: Complains of pain in ha1 head Pain: Complains of pain in head Pain currently is 6 out of 10 on a pain scale. EENT: No signs and/or symptoms were reported regarding the EENT system. Neuro: Level of Consciousness is awake, alert, obeys commands, Oriented to person, place, time, situation. Cardiovascular: Patient's skin is warm and dry. Respiratory: Airway is patent Respiratory effort is even, unlabored, Respiratory pattern is regular, symmetrical. Musculoskeletal: Circulation, motion, and sensation intact. Range of motion: intact in all extremities. Historical: - Allergies: 20:37 Reglan; ha1 - Home Meds: 20:37 propranolol Oral [Active]; gabapentin oral [Active]; ha1 - PMHx: 20:41 Hypertensive disorder; ha1 - Immunization history:: Adult Immunizations up to date. - Social history:: Smoking status: Reported history of juuling and/or vaping. Vital Signs: 20:32 BP 123 / 84; Pulse 70; Resp 16; Temp 97.5; Pulse Ox 96% ; Weight 86.18 kg; Height 5 ft. ha1 7 in. ; Pain 7/10; 20:32 Body Mass Index 29.76 (86.18 kg, 170.18 cm) ha1 20:32 Pain Scale: Adult ha1 ED Course: 20:27 Patient arrived in ED. jj6 20:28 Marc Dominguez DO is Attending Physician. ms3 20:37 Triage completed. ha1 20:39 Brittany Bolaños, RN is Primary Nurse. 3 20:54 COVID-19/FLU A+B Sent. 21:44 Troy Greene DO is Referral Physician. ms3 Administered Medications: No medications were administered Outcome: 21:44 Discharge ordered by . ms3 Signatures: Jessica Hamilton RN RN Marc Dominguez DO DO ms3 Michela Meagan j6 Brittany Bolaños RN RN [facility] Bella Still RN RN [facility] Corrections: (The following items were deleted from the chart) 20:42 20:41 PMHx: None; ha1 ha1
--- NOTE | 2022-11-06 21:45 | EDPHYS ---
Physician Documentation [facility] Name: Faustina Rosa Age: 61 yrs Sex: Female : 1960 Arrival Date: 11/06/2022 Time: 20:27 Bed 14 Private MD: ED Physician Marc Dominguez HPI: 11/06 21:11 This 61 yrs old Female presents to ER via Ambulatory with complaints of Fever. ms3 21:11 61-year-old female with past medical history of hypertension presents for body aches, ms3 fever. Patient states she began having symptoms on Tuesday which included aches. Patient states she has had a temperature up to 102.4 today. Patient states she took ibuprofen 30 minutes prior to arrival. 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 Patient states her last drink was 1 month ago. Patient denies sore throat, cough, nausea, vomiting. Patient endorses 1 episode of diarrhea last night. Historical: - Allergies: 20:37 Reglan; ha1 - Home Meds: 20:37 propranolol Oral [Active]; gabapentin oral [Active]; ha1 - PMHx: 20:41 Hypertensive disorder; ha1 - Immunization history:: Adult Immunizations up to date. - Social history:: Smoking status: Reported history of juuling and/or vaping. ROS: 21:11 Neck: Negative for injury, pain, and swelling, Cardiovascular: Negative for chest pain, ms3 and palpitations. Respiratory: Negative for shortness of breath, cough, wheezing, and pleuritic chest pain, MS/Extremity: Negative for injury and deformity, Skin: Negative for injury, rash, and discoloration, Neuro: Negative for headache, weakness, numbness, tingling. 21:11 Constitutional: Positive for body aches, chills, fever. 21:11 Abdomen/GI: Positive for diarrhea, Negative for abdominal pain, nausea and vomiting. 21:11 All other systems are negative. Exam: 21:11 Constitutional: This is a well developed, well nourished patient who is awake, alert, ms3 and in no acute distress. Head/Face: Normocephalic, atraumatic. Eyes: Pupils equal round and reactive to light, extra-ocular motions intact. Lids and lashes normal. Conjunctiva and sclera are non-icteric and not injected. Periorbital areas with no swelling, redness, or edema. Chest/axilla: Normal chest wall appearance and motion. Nontender with no deformity. Cardiovascular: Regular rate and rhythm with a normal S1 and S2. No gallops, murmurs, or rubs. Normal PMI, no JVD. No pulse deficits. Respiratory: Lungs have equal breath sounds bilaterally, clear to auscultation and percussion. No rales, rhonchi or wheezes noted. No increased work of breathing, no retractions or nasal flaring. Abdomen/GI: Soft, non-tender, with normal bowel sounds. No distension or tympany. No guarding or rebound. No evidence of tenderness throughout. Back: No spinal tenderness. No costovertebral tenderness. Full range of motion. Skin: Warm, dry with normal turgor. Normal color with no rashes, no lesions, and no evidence of cellulitis. MS/ Extremity: Pulses equal, no cyanosis. Neurovascular intact. Full, normal range of motion. Psych: Awake, alert, with orientation to person, place and time. Behavior, mood, and affect are within normal limits. Vital Signs: 20:32 BP 123 / 84; Pulse 70; Resp 16; Temp 97.5; Pulse Ox 96% ; Weight 86.18 kg; Height 5 ft. ha1 7 in. ; Pain 7/10; 20:32 Body Mass Index 29.76 (86.18 kg, 170.18 cm) ha1 20:32 Pain Scale: Adult ha1 MDM: 20:51 Patient medically screened. ms3 21:11 Differential diagnosis: viral Infection, URI, UTI. ms3 11/06 20:37 Order name: Urine Dipstick-Ancillary (obtain specimen); Complete Time: 21:28 ms3 11/06 20:37 Order name: Urinalysis; Complete Time: 21:43 ms3 11/06 20:37 Order name: COVID-19/FLU A+B; Complete Time: 21:43 ms3 11/06 20:57 Order name: Urine Dipstick-Ancillary; Complete Time: 21:43 EDMS Administered Medications: No medications were administered Disposition Summary: 11/06/22 21:44 Discharge Ordered Location: Home ms3 Condition: Stable ms3 Diagnosis - Fever, unspecified ms3 - Myalgia ms3 - Diarrhea, unspecified ms3 Followup: ms3 - With: Troy Greene DO - When: 2 - 3 days - Reason: Recheck today's complaints Forms: - Medication Reconciliation Form ms3 - Thank You Letter ms3 - Antibiotic Education ms3 - Prescription Opioid Use ms3 Signatures: Dispatcher [employer] EDMarc Obregon DO DO ms3 Bella Still RN RN ha1 Corrections: (The following items were deleted from the chart) 20:42 20:41 PMHx: None; ha1 ha1
[2022-11-06] MEDS ORDERED: KETOROLAC 30 MG/ML INJ ONE (21:55)
== END 2022-11-06 21:57 | disposition home or self-care (01) ==
LOC: ER 20:26
DX: R50.9 Fever, unspecified (principal); M79.10 Myalgia, unspecified site; R19.7 Diarrhea, unspecified; Z20.822 Contact with and (suspected) exposure to COVID-19
CPT/HCPCS: 0240U; 81001; 81003; 96372; 99283